=== PATIENT | female | born 1965 | race Two or more races ===

== ENCOUNTER 2019-12-21 13:13 | Outpatient (AMBR) | payer BC, SELFPAY ==
--- NOTE | 2019-12-21 13:29 | PT.OIERPT ---
PT OP Initial Eval Patient Information Visit Reasons: wrist pain Medical Diagnosis: M25.532 Treatment Dx #1: L wrist weakness Start of Care: 12/21/19 Date of Onset: August 07 Initial Assessment Subjective Pt is 54 yr old thai speaking female s/p fall with L wrist distal ulnar FX in July. Pt reports weakness and that she drops things like a cooking pain. She doesn't have pain at rest but sometimes if she hits the hand on something it hurts. , PMH: B knee OA, R shoulder OA, LBP with R LE radiation Imaging: X-ray of L wrist in EMR- Acute fracture distal shaft ulna, no significant displacement Acute fracture ulnar styloid tip, no significant displacement Distal radius intact as well as carpal bones Pt goal: to be able to lift things without pain to cook, stronger L wrist Objective Hot Knife Cutter strength: R 40 lbs, L 25 lbs L wrist TTP: moderate over ulnar styloid ArOM: Flexion: 50 deg Extension: 38 deg Rad dev: 5 deg Ulnar dev: full Pronation: full Supination: 75 deg Assessment Pt presentation consistent with L wrist distal ulnar FX's with decreased wrist ROM, strength and function with carrying objects. 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 Eval followed by HEP and given ball to squeeze. Pt requires skilled therapy to reduce pain and improve ROM and has good rehab potential. Short Term and [facility]ci Goals 1. Ind with HEP 2. Improved wrist extension to at least 50 deg 3. Improved chemical machine tender strength on L to at least 35 lbs 4. Pt will be able to lift cooking pans in order to cook not limited by pain Treatment Plan 1. Manual therapy 2. Therex 3. Modalities as indicated, moist heat, ice, estim Frequency and Duration 2x a week for 8 weeks Certification Dates: 12/21/19 to 03/21/20 Office Procedures PT Procedures PT Date of Service: 12/21/19 OP PT Eval Mod Complex 30 minutes: Yes
--- NOTE | 2019-12-27 17:20 | PTNOTE_ITS ---
PT Outpatient Daily Note Date of Service: 12/27/19 OP Daily Note Visit Reasons: wrist pain Outpatient Physical Therapy Treatment Date: 12/27/19 Subjective: Same as time of evaluation Objective: See F/S for therex MT: STM ulnar styloid and ulnar shaft region x10' Assessment: Pt was able to do over 30 reps of gripper without significant pain today. Moderate TTP over shaft of ulna with manual therapy today. Plan: Continue per POC Length of Time (minutes) of Treatment: 30 Minutes Office Procedures PT Procedures PT Date of Service: 12/21/19 OP PT Eval Mod Complex 30 minutes: Yes PT Procedures PT Date of Service: 12/27/19 Therapeutic Exercise 15 minutes: Yes Manual Ethylene Oxide Panelboard Operator 15 minutes: Yes
== END 2020-01-16 23:59 | disposition home or self-care (01) ==
PROVIDERS: PCP Orthopaedic Surgery; Referring Provider Orthopaedic Surgery; Visit Provider Orthopaedic Surgery
DX: M25.532 Pain in left wrist (principal); R53.1 Weakness
CPT/HCPCS: 97110; 97140; 97162

== ENCOUNTER 2024-01-31 15:37 | Inpatient (IN) | payer BC, SELFPAY ==
[2024-01-31] VITALS (8 sets, daily range): BP systolic 109–161; BP diastolic 66–91; PULSE 75–103; RESP 12–19; TEMP 36.8–38.8; O2SAT 95–99; BMI 26.5
--- NOTE | 2024-01-31 15:49 | XR_ITS ---
Examination: AP chest single view TECHNIQUE: Portable sitting AP chest single view Exam date and time: January 31, 2024 1559 hours Comparison July 11, 2018 INDICATIONS: Chest pain today FINDINGS: Normal heart size Lungs are clear Moderate osteopenia IMPRESSION: No pneumonia or pulmonary edema
--- NOTE | 2024-01-31 15:49 | EKG_ITS ---
[facility] Test Date: 2024-01-31 Pat Name: DAMIAN ROBERTS Department: Room: - Gender: Female Operational Intelligence Officer: : 1965 Requested By: Bill Carrasquillo Order Number: [id number] Reading MD: Bill Carrasquillo Measurements Intervals Mullen Rate: 83 P: 57 ME: 146 QRS: 27 QRSD: 97 T: 52 QT: 342 QTc: 404 Interpretive Statements SINUS RHYTHM Compared to ECG 01/21/2024 10:18:46 No significant changes /store/S0/[id number]/ecg/[id number].pdf
--- NOTE | 2024-01-31 15:49 | XR_ITS ---
Examination: CT brain head without contrast. 2-D sagittal coronal reconstructions Date and time of exam:January 31, 2024 1627 hours INDICATIONS: Severe headache the last 2 hours, CVA January 21, 2024, acute infarcts right cerebellar hemisphere right vermis on MRI brain January 21, 2024 CTDI: vol (mGy):42.7 DLP: (mGycm):842 Technique: Multiple CT axial sections of the brain have been obtained, 5 mm slice thickness. Contrast has not been administered. 2-D sagittal, coronal reconstructions have been obtained Low dose protocols were performed. One or more of the following dose reduction techniques were used; automated exposure control, adjustment of the mA and/or KV according to patient size, use of iterative reconstruction technique. Findings: No significant ventricular enlargement. Intra-axial or extra-axial hemorrhage density is not seen. No mass effect or midline shift Basal cisterns are not remarkable. Fourth ventricle is midline. Cranial vault intact. Impression: Negative for acute hemorrhage, mass effect or midline shift Consider repeat brain MRI follow-up, stroke protocol
--- NOTE | 2024-01-31 15:50 | PC.NURSE ---
DR. CARMONA IN TO SEE PT IN THE OLD TRIAGE ROOM AND SAYS NO NEED TO CALL STROKE ALERT.
[2024-01-31] MEDS: SODIUM CHLORIDE 0.9% 1000 ML 1,000 ML IV (16:01)
--- NOTE | 2024-01-31 16:09 | PD.EDADULT ---
ED General RME/HPI General Chief complaint: Neuro Symptoms/Deficit Stated complaint: FRYE x 10 DAYS, WORSE x 2 HR, STROKE 01/20, FEVER 102 Time Seen by Provider: 01/31/24 15:48 Arrival date/time: 01/31/24 15:37 RME / HPI RME / HPI narrative: DR. CARMONA MAIN ED EVALUATION: 58 year old female presents to the Emergency Department with complaints of increasing headache weakness generalized found to have a fever while in triage and was asked by our [place] nurse practitioner to come see this patient. She has no new focal deficit but did have a stroke in the recent past with some left hemiparesis. There is no cough nose no runny nose there is no sore throat there is no chest pain there is no abdominal pain. Family reports the headache and weak symptoms have been present for the past 2 weeks since his stroke but things are worse today. Related Data Home Medications ?Medication ?Instructions ?Recorded ?Confirmed duloxetine 60 mg capsule,delayed 30 mg PO QDAY 08/08/19 01/22/24 release (Cymbalta) fluticasone propionate 50 1 spray intranasal QDAY PRN 01/22/24 01/22/24 mcg/actuation nasal Allergic Symptoms spray,suspension (Flonase Allergy Relief) lisinopril 10 mg tablet 10 mg PO DAILY 01/22/24 01/22/24 Previous Rx's ?Medication ?Instructions ?Recorded acetaminophen 500 mg capsule 500 mg PO Q6H PRN pain #30 caps 01/24/24 aspirin 81 mg tablet,delayed 81 mg PO QDAY 21 days #21 tabs 01/24/24 release atorvastatin 80 mg tablet 80 mg PO HS 30 days #30 tabs 01/24/24 clopidogrel 75 mg tablet 75 mg PO QDAY 30 days #30 tabs 01/24/24 Allergies Allergy/AdvReac Type Severity Reaction Status Date / Time No Known Allergies Allergy Verified 01/31/24 15:46 Review of Systems Review of Systems Systems Reviewed: All systems reviewed, normal except as documented Narrative Review of Systems: GEN: No fever, no chills, no weight loss EYES: No discharge, no visual changes, no pain HEENT: No ear pain, no congestion, no sore throat PULM: No shortness of breath, no cough, no congestion CV: No chest pain, no dyspnea on exertion, no palpitations GI: No nausea, no vomiting, no diarrhea, no pain, no constipation : No frequency, no urgency and no dysuria MUSC/SKEL: No joint pain, no back pain SKIN: No rash PSYCH: No hallucinations, no depression HEME/LYMPH: No easy bleeding or bruising tendencies NEURO: + generalized weakness, + headache Past Medical History Past Medical History NEUROLOGIC: Positive Migraine MUSCULOSKELETAL: Positive Musculoskeletal Disorders and Arthritis PSYCHO/SOCIAL: Positive Anxiety Surgical History SURGICAL: Positive Hysterectomy Social History SMOKING STATUS: Light (< 1 pack/day) SUBSTANCE USE: does not use ALCOHOL: Never ED Exam Narrative Physical exam: Physical Exam: General: The vital signs were reviewed. Febrile in triage alert and awake answers questions no obvious focal deficit but does appear to have generalized weakness the patient is non-toxic, in no apparent distress and appears healthy with a patent airway, no respiratory distress and has no apparent circulatory problems. Head & Scalp: Normocephalic, atraumatic. Face: Appears normal and is without lesions, deformity. Ears: Left external pinna appears normal. Right external pinna appears normal. Eyes: The sclera is anicteric. No obvious photophobia. The Left and Right Orbit/Lid/Conjunctiva appears normal without swelling, discoloration or injection. Nose: The nose is without deformity, discharge or tenderness; Throat: Appears normal. The mucous membranes are pink and moist without exudates, redness or mass seen. The tongue appears normal. Neck: The neck is supple and no apparent mass or adenopathy. Chest: The chest wall is normal in size and symmetry and has no chest wall tenderness or crepitus. The patient displays normal ventilator effort without retractions, accessory muscle use and has adequate air movement bilaterally with no wheezes and no rales. Cardiovascular: Regular rate and rhythm; No murmurs, rubs, or gallops; Gastrointestinal: The abdomen appears normal. No obvious hernias or mass. The abdomen is soft and benign, non-distended, with no pain, no guarding and no rebound tenderness. Bowel sounds are present and normal sounding. No CVA tenderness. Genitourinary: Back/Spine: Nontender Extremities/Musculoskeletal/lymphatic: The bilateral upper and lower extremities are warm. There is no evidence of arterial insufficiency. There is no evidence of venous insufficiency/edema. The patient spontaneously moves bilateral upper and lower extremities with no pain and no limitation of movement. There is no apparent, injury or trauma. Skin: The skin is warm, dry and intact. No rashes. No petechia. No purpura. No abnormal bruising. The color is appropriate with no cyanosis. Mental status/Psychiatric: Mental status is appropriate for age. The patient has no apparent delusions, visual hallucinations, no apparent audible hallucinations. The patient has no apparent suicidal thoughts/ideation and no apparent homicidal thoughts/ideation. Neurological: The patient is awake, alert, interactive, cordial, cooperative and is oriented to name and situation. The patient follows commands and answers historical question with no impairment. There is no visual disturbance apparent. The pupils are equal and reactive bilaterally with normal eye movements and no diplopia The bilateral upper and lower extremities have normal strength, normal range of motion and normal functioning. The gait, station and balance were not tested due to acuity Course Quality Measures none Orders Category Date Time Status Bedside Blood Glucose NOW Care 01/31/24 15:49 Active Bedside COVID-19 Antigen Test NOW Care 01/31/24 16:08 Active Bedside Influenza A&B Antigen Test NOW Care 01/31/24 16:08 Completed EKG (ED ONLY) *Do not use* NOW Care 01/31/24 15:[address] head/brain wo con Stat Exams 01/31/24 15:49 Completed EKG (ED Only) Stat Exams 01/31/24 15:49 Draft XR chest 1V portable Stat Exams 01/31/24 15:49 Completed Alcohol, Blood Medical Stat Lab 01/31/24 15:57 Completed Ammonia Stat Lab 01/31/24 16:09 Completed B-Type Natriuretic Peptide Stat Lab 01/31/24 15:57 Completed Blood Culture (Lab) Stat Lab 01/31/24 16:09 Received CBC Stat Lab 01/31/24 15:57 Completed Comprehensive Metabolic Panel Stat Lab 01/31/24 15:57 Completed Drug Screen,Urine Stat Lab 01/31/24 17:25 Received Lactate (Lactic Acid) Stat Lab 01/31/24 15:57 Completed Procalcitonin Stat Lab 01/31/24 15:57 Completed Prothrombin Time with INR Stat Lab 01/31/24 15:57 Completed Strep A Rapid Stat Lab 01/31/24 16:08 Ordered Troponin I Stat Lab 01/31/24 15:57 Completed Type and Screen Stat Lab 01/31/24 16:09 Completed Urinalysis Stat Lab 01/31/24 17:25 Received Urinalysis, C/S if Indicated Stat Lab 01/31/24 17:25 Received Venous Blood Gas Stat Lab 01/31/24 15:57 Completed Sodium Chloride 0.9% 1000 ml [Ns] 1,000 ml Med 01/31/24 15:48 Discontinued IV 1,000 mls/hr Vital Signs Vital signs: Vital Signs Temperature 102 F H 01/31/24 15:50 Pulse Rate 103 H 01/31/24 15:50 Respiratory Rate 18 01/31/24 15:50 Blood Pressure 109/66 01/31/24 15:50 Pulse Oximetry (%) 95 01/31/24 15:50 Oxygen Delivery Method Room Air 01/31/24 15:50 [facility] Patient data External records reviewed:: [facility] previous records (Reviewed last neurology note by Dr. Santiago dated 01/26/24.) Clinical information provided by:: patient Social determinants that could affect healthcare access:: other (specify) (tobacco smoking) Patient has the following chronic illnesses:: Hypertension, hyperlipidemia, CVA, migraines. How is presenting disease/condition affected by chronic disease/condition?: exacerbated by Evaluation data The following diagnostics were reviewed and interpreted by me:: lab results, radiology exam(s) and EKG tracing(s) Lab and/or radiology exams considered but not ordered:: none Interpretation Summary: See above under [facility] narrative. RADIOLOGY: Procedure(s): XR chest 1V portable Accession Number(s): [id number] cc: Julian Mckoy MD; Bill Carmona MD; Chaka Hammond MD~ Examination: AP chest single view TECHNIQUE: Portable sitting AP chest single view Exam date and time: January 31, 2024 1559 hours Comparison July 11, 2018 INDICATIONS: Chest pain today FINDINGS: Normal heart size Lungs are clear Moderate osteopenia IMPRESSION: No pneumonia or pulmonary edema Dictated By: Chaka Hammond MD Procedure(s): CT head/brain wo con Accession Number(s): [id number] cc: Julian Mckoy MD; Bill Carmona MD; Chaka Hammond MD~ Examination: CT brain head without contrast. 2-D sagittal coronal reconstructions Date and time of exam:January 31, 2024 1627 hours INDICATIONS: Severe headache the last 2 hours, CVA January 21, 2024, acute infarcts right cerebellar hemisphere right vermis on MRI brain January 21, 2024 CTDI: vol (mGy):42.7 DLP: (mGycm):842 Technique: Multiple CT axial sections of the brain have been obtained, 5 mm slice thickness. Contrast has not been administered. 2-D sagittal, coronal reconstructions have been obtained Low dose protocols were performed. One or more of the following dose reduction techniques were used; automated exposure control, adjustment of the mA and/or KV according to patient size, use of iterative reconstruction technique. Findings: No significant ventricular enlargement. Intra-axial or extra-axial hemorrhage density is not seen. No mass effect or midline shift Basal cisterns are not remarkable. Fourth ventricle is midline. Cranial vault intact. Impression: Negative for acute hemorrhage, mass effect or midline shift Consider repeat brain MRI follow-up, stroke protocol Dictated By: Chaka Hammond MD Medications Medications considered but not ordered:: none Medication administrations:: Medication Administration History Discontinued Medications Sodium Chloride (Ns) 1,000 mls @ 1,000 mls/hr IV .Q1H ONE Stop: 01/31/24 16:47 Last Admin: 01/31/24 16:01 Dose: 1,000 mls/hr Documented By: MP see above Consultations Consultation(s) initiated? (list below): No Diagnosis Differential Diagnosis ED Complaint MDM: migraine, TIA, CVA, dehydration Most likely diagnosis given after review of the tests above:: Fever of unknown origin urine analysis still pending no other apparent source which is obvious clinically. COVID and influenza came back negative Admission Indicated Admission indicated?: not indicated (Pending final workup. Patient is feeling much better and wants to go home but the follow-up doctor will have to discern if patient safe to go home.) Explain why admission is indicated or not indicated:: No final disposition plan at this time, still pending diagnostic tests. Patient signout to the maintenance technician 3rd shift provider. Admission Request Was there a request for admission?: No Disposition Plan Disposition Plan: other (specify) (Patient signout to the maintenance technician 3rd shift provider.) Medical Decision Making MDM Narrative MDM Narrative: I was approached by the nurse practitioner concerning this patient went up to triage to see him as she presents with acute fever weakness with a recent stroke but no obvious new worsening focal deficit was present because of the fever and weakness we called a septic alert. Patient got fluids was put into room 5 eventually and the medical workup revealed the following white count came back at 11.5 hemoglobin 14.0 platelet count 421,000. PT 11.5. INR is 1.1 venous blood gas 744 pCO2 of 43 sodium 128 slightly low potassium 3.7 chloride 95 CO2 26 anion gap is 7 BUN 11 creatinine 0.8. Glucose 119 lactic acid came back at 1.0. Total bilirubin is 1 AST ALT are within normal limits. Ammonia is less than 10. Troponin was negative BNP was procalcitonin came back at 0.10 essentially negative. Alcohol level is negative. Patient is feeling better. As of 1742 hrs. the cath urine has not been collected. And the source of the fever is still undetermined. CT report of the head came back negative. Chest x-ray interpreted myself reveals no infiltrates no effusion normal heart size Twelve-lead EKG was done interpreted by myself as sinus rhythm rate [address] elevation OR. Normal EKG. When back in the room and patient feels much better states she feels like going home understands were still waiting for the urine result to come back. Evidently is patient's baseline status that she walks with a walker since the recent stroke but does not need any further assistance. Care of this patient will come to the oncoming doctor to dispo. Differential Diagnosis Differential Diagnosis: migraine, TIA, CVA, dehydration Lab Data 01/31/24 15:57 01/31/24 15:57 Labs: Lab Results 01/31/24 01/31/24 Range/Units 15:57 16:09 WBC 11.5 H (3.6-11.0) Thou/mm3 RBC 4.55 (4.00-5.20) Miln/mm3 Hgb 14.0 (12.0-16.0) g/dL Hct 42.6 (36.0-46.0) % MCV 94 (80-100) fL MCH 30.8 (25.0-35.0) pg MCHC 32.9 (31.0-37.0) g/dl RDW Std Deviation 43.0 (36.4-46.3) fL Plt Count 421 (140-440) Thou/mm3 Neut % (Auto) 74 (37-80) % Lymph % (Auto) 13 (10-50) % Leslie % (Auto) 9 (0-12) % Eos % (Auto) 4 (0-10) % Baso % (Auto) 1 (0-2.5) % Neut # (Auto) 8.5 H (1.8-7.7) Thou/mm3 Lymph # (Auto) 1.4 (1.0-4.8) Thou/mm3 Leslie # (Auto) 1.0 H (0.0-0.8) Thou/mm3 Eos # (Auto) 0.4 (0.0-0.5) Thou/mm3 Baso # (Auto) 0.1 (0.0-0.2) Thou/mm3 Immature Gran # (Auto) 0.04 H (0.00-0.00) Thou/mm3 Absolute Nucleated RBC 0.00 (0.00-0.00) Thou/mm3 Immature Gran % 0 (0-0) % Nucleated RBC % 0 (0) /100 WBC PT 11.5 (9.0-12.2) Seconds INR 1.1 (0.9-1.3) VBG pH 7.44 (7.33-7.66) VBG pCO2 43 (36-56) mmHg VBG pO2 29 (15-58) mmHg VBG O2 Sat (Saira) 56 L (96-97) % VBG Base Excess 4 H (-3-3) Sodium 128 L (136-145) mMol/L Potassium 3.7 (3.4-5.1) mMol/L Chloride 95 L (98-107) mMol/L Carbon Dioxide 26.0 (20.0-31.0) mMol/L Anion Gap 7 (7-16) BUN 11 (9-23) mg/dL Creatinine 0.8 (0.6-1.3) mg/dL Estim Creat Clear Calc 70.1 (>60) mL/min eGFR > 60 (60 - ) See Note BUN/Creatinine Ratio 14 (12-20) Ratio Glucose 119 H (74-106) mg/dL Calculated Osmolality 257 L (275-295) Lactic Acid 1.0 (0.4-2.0) mMol/L Calcium 9.8 (8.3-10.6) mg/dL Corrected Calcium 9.8 (8.5-10.1) mg/dL Total Bilirubin 1.0 (0.3-1.2) mg/dL AST < 8 (0-34) U/L ALT 17 (10-49) U/L Alkaline Phosphatase 111 (46-116) U/L Ammonia < 10 L (11-32) uMol/L Troponin I < 0.020 (0.0-0.045) ng/mL B-Natriuretic Peptide < 20 (0-100) pg/mL Total Protein 8.3 H (5.7-8.2) gm/dL Albumin 4.4 (3.5-5.0) gm/dL Globulin 3.9 H (2.3-3.5) gm/dL Albumin/Globulin Ratio 1.1 L (1.2-2.2) Procalcitonin 0.10 (0.0-0.49) ng/ml Ethyl Alcohol < 3.0 (0-10.0) mg/dL Blood Type O Positive Antibody Screen NEGATIVE Blood Bank Wristband ID Yes Discharge Plan Prescriptions/Referrals Prescriptions/Med Rec: No Action duloxetine [Cymbalta] 60 mg Capsule,Delayed Release(Dr/Ec) 30 mg PO QDAY lisinopril 10 mg tablet 10 mg PO DAILY fluticasone propionate [Flonase Allergy Relief] 50 mcg/actuation [place],Suspension 1 spray INTRANASAL QDAY PRN (Reason: Allergic Symptoms) Rx Instructions: administer into each nostril atorvastatin 80 mg tablet 80 mg PO HS 30 Days Qty: 30 0RF clopidogrel 75 mg Tablet 75 mg PO QDAY 30 Days Qty: 30 0RF acetaminophen 500 mg capsule 500 mg PO Q6H PRN (Reason: pain) Qty: 30 0RF aspirin 81 mg tablet,delayed release (DR/EC) 81 mg PO QDAY 21 Days Qty: 21 0RF Referrals: Julian Mckoy MD [Primary Care Provider] - In 1 week Problem List Clinical Impression: Generalized weakness, Fever, Recent cerebrovascular accident Patient/Caregiver Discharge Instructions Print Language: Greek
[2024-01-31 16:15] LABS: Base Excess, Venous 4 (-3-3); O2 Saturation, Venous 56 % (96-97); PCO2, Venous 43 mmHg (36-56); PO2, Venous 29 mmHg (15-58); pH, Venous 7.44 (7.33-7.66)
--- NOTE | 2024-01-31 16:17 | PC.NURSE ---
Pt. presents to ER accompanied by son bc son believes there has been a change to mental status. States she was slow to answer questions and out of it . Pt had a stroke which was dx 01/21/2024 and since has been living at her sons home using a walker to ambulate. Pt is A/O x 4, z[place]an speaking, ambulates with a walker, continent. Prior to stroke pt. was ambulatory without assistance and living at her home with her . Pt. states having migraines often but 2 days prior to stroke dx, pt had a different feeling headache.
[2024-01-31 16:20] LABS: Basophils # (Auto) 0.1 Thou/mm3 (0.0-0.2); Basophils % (Auto) 1 % (0-2.5); Eosinophils # (Auto) 0.4 Thou/mm3 (0.0-0.5); Eosinophils % (Auto) 4 % (0-10); Hematocrit 42.6 % (36.0-46.0); Immature Granulocytes % (Auto) 0 % (0-0); Immature Granulocytes Auto 0.04 Thou/mm3 (0.00-0.00); Lymphocytes # (Auto) 1.4 Thou/mm3 (1.0-4.8); Lymphocytes % (Auto) 13 % (10-50); Mean Corpuscular HGB Conc 32.9 g/dl (31.0-37.0); Mean Corpuscular Hemoglobin 30.8 pg (25.0-35.0); Mean Corpuscular Volume 94 fL (80-100); Monocytes % (Auto) 9 % (0-12); Neutrophils # (Auto) 8.5 Thou/mm3 (1.8-7.7); Neutrophils % (Auto) 74 % (37-80); Nucleated Red Blood Cell % 0 /100 WBC (0); Platelet Count 421 Thou/mm3 (140-440); Red Blood Count 4.55 Miln/mm3 (4.00-5.20); White Blood Count 11.5 Thou/mm3 (3.6-11.0)
[2024-01-31 16:35] LABS: INR 1.1 (0.9-1.3); Prothrombin Time 11.5 Seconds (9.0-12.2)
[2024-01-31 16:37] LABS: B-Type Natriuretic Peptide < 20 pg/mL (0-100)
[2024-01-31 16:38] LABS: Ammonia < 10 uMol/L (11-32)
[2024-01-31 16:50] LABS: Alanine Aminotransferase 17 U/L (10-49); Albumin, Serum 4.4 gm/dL (3.5-5.0); Albumin/Globulin Ratio 1.1 (1.2-2.2); Alcohol, Blood Medical < 3.0 mg/dL (0-10.0); Alkaline Phosphatase 111 U/L (46-116); Anion Gap 7 (7-16); Aspartate Amino Transferase < 8 U/L (0-34); BUN/Creatinine Ratio 14 Ratio (12-20); Blood Urea Nitrogen 11 mg/dL (9-23); Calcium 9.8 mg/dL (8.3-10.6); Calcium (Corrected) 9.8 mg/dL (8.5-10.1); Chloride 95 mMol/L (98-107); Creatinine (Component) 0.8 mg/dL (0.6-1.3); Estimated Creatinine Clearance 70.1 mL/min (>60); Globulin 3.9 gm/dL (2.3-3.5); Glucose 119 mg/dL (74-106); Osmolality,Calculated 257 (275-295); Potassium 3.7 mMol/L (3.4-5.1); Sodium 128 mMol/L (136-145); Total Protein 8.3 gm/dL (5.7-8.2); Troponin I < 0.020 ng/mL (0.0-0.045); eGFR > 60 See Note
[2024-01-31 17:38] LABS: Collection Type, Urine Clean Catch
[2024-01-31 17:51] LABS: Bacteria,Urine Rare; Bilirubin,Urine Negative (Negative); Blood,Urine Negative (Negative); Clarity,Urine Clear (Clear/Hazy); Color,Urine Colorless (Lt Yel-Yel); Culture Indicated,Urine Not Indicated; Glucose, Urine Negative (Negative); Ketones,Urine Negative (Negative); Leukocyte Esterase,Urine Positive (Negative); Nitrite,Urine Negative (Negative); Protein,Urine Negative (Neg - Trace); RBC,Urine < 1 /hpf (0-3); Specific Gravity,Urine 1.006 (1.001-1.035); Squamous Epithelial Cell,Urine 1 /hpf (0-5); Urobilinogen,Urine Negative mg/dL (0.0-1.0); WBC,Urine 2 /hpf (0-5)
[2024-01-31 17:52] LABS: Amphetamine/Methamp Scrn,U Negative (Negative); Barbiturate Screen,Urine Negative (Negative); Benzodiazepines Screen,Urine Negative (Negative); Benzoylecgonine Screen, Ur Negative (Negative); Fentanyl Screen,Urine Negative (Negative); Opiate Screen,Urine Negative (Negative); THC Screen,Urine Negative (Negative)
--- NOTE | 2024-01-31 18:18 | PD.EDADDENDU ---
Emergency Room Addendum <Shayna Garcia - Last Filed: 01/31/24 21:45> Addendum Narrative: Medical Decision Making MDM Narrative MDM Narrative: 1800: Care assumed from Bill Werner. Past medical, surgical, social and family history reviewed. Vitals and home medications reviewed. Results and treatment plan discussed. I will assume the care of the patient at this time and will follow the patient, pending final disposition. The following addendum documentation note is intended to reflect any pending information, findings, or radiology results not included in the patient?s initial chart by the previous provider. 2101: I have ordered a CT of the chest, abdomen and pelvis, looking for a source of infection. HPI Narrative: 58-year-old female with history of recent CVA discharged approximately one week ago who has had chronic headaches since the stroke, that is usually cleared with oral pain medicines, but comes to the emergency department because the pain medicines didn?t work. She denies fevers, chills, or sweats. She denies photophobia, nausea, vomiting, or diarrhea. She denies cough or sore throat. She does endorse mild right lower abdominal pain. Review of Systems Review of Systems Systems Reviewed: All systems reviewed, normal except as documented ED Exam Narrative Physical exam: GENERAL APPEARANCE: AxOx4, generally well-appearing, no acute distress. She appears to have extra pyramidal movements of her entire body mostly in the face with lip smacking movement pattern. HEENT: NC, AT. MMM. EOMI, clear conjunctiva, oropharynx clear. NECK: Supple without lymphadenopathy. No stiffness or restricted ROM. No stiffness, no meningismus. HEART: Normal rate and regular rhythm, normal S1/S1, no m/r/g LUNGS: CTAB, moving air well. No crackles or wheezes are heard. ABDOMEN: Soft, mild right lower quadrant tenderness without rebound, nondistended with good bowel sounds heard. BACK: No midline C/T/L spine pain or deformity, No CVAT, no obvious deformity. EXTREMITIES: Without cyanosis, clubbing or edema. MUSCULOSKELETAL: FROM of all major joints, no chest tenderness NEUROLOGICAL: Grossly nonfocal. Alert and oriented, moving all 4 extremities. CN not formally tested but appear grossly intact. Observed to ambulate with normal gait. Skin: Warm and dry without any rash. <Alexa Mckoy - Last Filed: 02/01/24 00:02> Addendum Narrative: Medical Decision Making MDM Narrative MDM Narrative: 1800: Care assumed from Bill Werner. Past medical, surgical, social and family history reviewed. Vitals and home medications reviewed. Results and treatment plan discussed. I will assume the care of the patient at this time and will follow the patient, pending final disposition. The following addendum documentation note is intended to reflect any pending information, findings, or radiology results not included in the patient?s initial chart by the previous provider. 2101: I have ordered a CT of the chest, abdomen and pelvis, looking for a source of infection. 4: Discussed case with [Dr. Santiago] from [neurology] regarding [consultation]. Discussed patients ED course, exam findings, labs, and radiology results. Does not recommend a LP at this time. Agrees to consult. 0002: Discussed case with [Dr. Hernandez, resident physician] from Hospitalist service regarding admission. Discussed patients ED course, exam findings, labs, and radiology results. The Hospitalist [agrees] to accept the patient for admission. HPI Narrative: 58-year-old female with history of recent CVA discharged approximately one week ago who has had chronic headaches since the stroke, that is usually cleared with oral pain medicines, but comes to the emergency department because the pain medicines didn?t work. She denies fevers, chills, or sweats. She denies photophobia, nausea, vomiting, or diarrhea. She denies cough or sore throat. She does endorse mild right lower abdominal pain. Review of Systems Review of Systems Systems Reviewed: All systems reviewed, normal except as documented ED Exam Narrative Physical exam: GENERAL APPEARANCE: AxOx4, generally well-appearing, no acute distress. She appears to have extra pyramidal movements of her entire body mostly in the face with lip smacking movement pattern. HEENT: NC, AT. MMM. EOMI, clear conjunctiva, oropharynx clear. NECK: Supple without lymphadenopathy. No stiffness or restricted ROM. No stiffness, no meningismus. HEART: Normal rate and regular rhythm, normal S1/S1, no m/r/g LUNGS: CTAB, moving air well. No crackles or wheezes are heard. ABDOMEN: Soft, mild right lower quadrant tenderness without rebound, nondistended with good bowel sounds heard. BACK: No midline C/T/L spine pain or deformity, No CVAT, no obvious deformity. EXTREMITIES: Without cyanosis, clubbing or edema. MUSCULOSKELETAL: FROM of all major joints, no chest tenderness NEUROLOGICAL: Grossly nonfocal. Alert and oriented, moving all 4 extremities. CN not formally tested but appear grossly intact. Observed to ambulate with normal gait. Skin: Warm and dry without any rash. RADIOLOGY RESULTS: I personally reviewed the radiology data and agree with the radiologist's interpretation as below: [facility] Report Signed Patient: DAMIAN ROBERTS Record#: [id number] Birthdate: 1965 Age/Sex: 58 / F [facility] Attending Dr: Ordering Physician: Jordan Gross MD Date of Service: 01/31/24 Procedure(s): CT chest abdomen pelvis w Accession Number(s): [id number] cc: Julian Mckoy MD; Jordan Gross MD; Chaka Hammond MD~ Examination: CT chest with intravenous contrast CT abdomen with intravenous contrast CT pelvis with intravenous contrast 2-D coronal and sagittal reconstructions Time of exam: January 31, 2024 2159 hrs. Indications: Fever unknown origin today CTDI: vol (mGy) : 13.33 DLP: (mGycm): 739 Technique: Multiple axial images of the chest, abdomen and pelvis with intravenous contrast, 3.0 mm slice thickness. Images obtained post intravenous injection Isovue 370 60 cc. 2-D sagittal and coronal reconstructions. Low dose protocols were performed. One or more of the following dose reduction techniques were used; automated exposure control, adjustment of the mA and/or KV according to patient size, use of iterative reconstruction technique. Findings: No thoracic aortic aneurysm dilatation No pulmonary artery emboli No paratracheal tracheobronchial or bronchopulmonary adenopathy 10 mm pulmonary nodule right lower lobe No pneumonia or pulmonary edema or pleural disease No focal liver or splenic lesions Mucosal thickening in the gastric antrum axial image 184 No gallstones No pancreatic or adrenal mass Reticular pattern in the peritoneum for instance axial image 212 on the right side Mildly dilated small bowel loops Mild diffuse wall thickening involving the colon Normal appendix No diverticulitis Distended urinary bladder Atrophic uterus Moderate osteopenia Impression: 10 mm pulmonary nodule right lower lobe, recommend 6 month follow-up CT chest without contrast. No pneumonia or pulmonary edema or pleural disease Gastritis pattern, underlying gastric tumor not excluded, consider endoscopy follow-up Reticular pattern in the peritoneum, this appearance can be seen with peritoneal carcinomatosis, peritonitis, clinical correlation advised Enteritis pattern Diffuse mild colitis pattern Dictated By: Chaka Hammond MD Signed By: <Electronically signed by Chaka Hammond MD in OV> 01/31/24 2303 Attestation <Shayna Garcia - Last Filed: 01/31/24 21:45> Attestation Scribe Attestation: I, Bernardo Garcia, am scribing for and in the presence of Dr. Gross. Provider Notation: Although this document has been carefully reviewed, there may still be some phonetic and other typographical errors. These errors are purely grammatical due to imperfections in the software program and should not be construed in any way to compromise the substance of the patient's medical care during this visit.
--- NOTE | 2024-01-31 20:45 | XR_ITS ---
Examination: CT chest with intravenous contrast CT abdomen with intravenous contrast CT pelvis with intravenous contrast 2-D coronal and sagittal reconstructions Time of exam: January 31, 2024 2159 hrs. Indications: Fever unknown origin today CTDI: vol (mGy) : 13.33 DLP: (mGycm): 739 Technique: Multiple axial images of the chest, abdomen and pelvis with intravenous contrast, 3.0 mm slice thickness. Images obtained post intravenous injection Isovue 370 60 cc. 2-D sagittal and coronal reconstructions. Low dose protocols were performed. One or more of the following dose reduction techniques were used; automated exposure control, adjustment of the mA and/or KV according to patient size, use of iterative reconstruction technique. Findings: No thoracic aortic aneurysm dilatation No pulmonary artery emboli No paratracheal tracheobronchial or bronchopulmonary adenopathy 10 mm pulmonary nodule right lower lobe No pneumonia or pulmonary edema or pleural disease No focal liver or splenic lesions Mucosal thickening in the gastric antrum axial image 184 No gallstones No pancreatic or adrenal mass Reticular pattern in the peritoneum for instance axial image 212 on the right side Mildly dilated small bowel loops Mild diffuse wall thickening involving the colon Normal appendix No diverticulitis Distended urinary bladder Atrophic uterus Moderate osteopenia Impression: 10 mm pulmonary nodule right lower lobe, recommend 6 month follow-up CT chest without contrast. No pneumonia or pulmonary edema or pleural disease Gastritis pattern, underlying gastric tumor not excluded, consider endoscopy follow-up Reticular pattern in the peritoneum, this appearance can be seen with peritoneal carcinomatosis, peritonitis, clinical correlation advised Enteritis pattern Diffuse mild colitis pattern
[2024-01-31] MEDS: BENZTROPINE 0.5 MG TABLET 2 MG PO (21:23)
--- NOTE | 2024-01-31 23:05 | PC.NURSE ---
assisted pt to bathroom and back to bed.
--- NOTE | 2024-01-31 23:23 | PC.NURSE ---
PT HAS A TEMP OF 101.1 PROVIDER NOTIFIED NO NEW ORDERS AT THIS TIME.
[2024-01-31] MEDS: ACETAMINOPHEN 500 MG TABLET 1000 MG PO (23:34)
[2024-02-01] VITALS (11 sets, daily range): BP systolic 121–159; BP diastolic 43–72; PULSE 59–89; RESP 15–98; TEMP 36.6–37.7; O2SAT 95–99; BMI 23.1; BMI 13.0
[2024-02-01] MEDS: cefTRIAXone/D5w 1gm IV premix 50 ML IV (00:03)
--- NOTE | 2024-02-01 00:43 | ESHP_ITS ---
Documentation for date of: 02/01/24 HPI History of Present Illness History of present illness: 58-year-old female patient with significant medical history for hypertension, frequent migraines, fibromyalgia, hyperlipidemia, anxiety and allergic rhinitis came to ED for worsening headaches, fever, nausea, vomiting and generalized weakness. Patient was recently admitted on 01/21/2024 for headache and blurred vision and was found to have acute infarct of right cerebral hemisphere and right superior vermis per MRI. Patient was discharged on 01/26/2024 with aspirin, Plavix and atorvastatin after being evaluated by neurologist Dr Santiago. Today patient is accompanied by son who states that since yesterday patient has been having more severe headache with associated symptom of 101F fever. Patient has also had decreased p.o. intake. No chest pain/pressure, shortness of breath, chills, abdominal pain, diarrhea, constipation or other associate symptoms. ED vitals were significant for pulse 1 3 and temperature 102F. Patient was given x 1 Cogentin as per physical exam she was seen to have EPS/tardive dyskinesia. Lab was significant for WBC 11.5, NA 128, glucose 119. Urinalysis was negative for UTI, head CT was negative for hemorrhage or midline shift, chest x-ray was negative for any active disease. Chest/abdomen/pelvis CT indicative of: 10 mm pulmonary nodule right lower lobe, recommend 6 month follow-up CT chest without contrast. Gastritis pattern, underlying gastric tumor not excluded, reticular pattern in the peritoneum, peritonitis, Enteritis pattern with diffuse mild colitis pattern. Patient will be admitted to [facility] observation for viral gastritis, dehydration requiring IV fluids and migraine management. Medical Hx: Migraine, fibromyalgia, CVA, HLD, HTN, anxiety, Vitamin D deficiency Medications: Lisinopril, aspirin, Plavix, atorvastatin, Tylenol as needed for pain Surgical Hx:Hysterectomy Family Hx: Father = prostate cancer, mother = stroke and DM2 Social Hx: Recent smoker from [id number] with half pack of cigarettes weekly, denies alcohol or other illicit drug usage Allergies: NKDA CODE STATUS: Full code Review of Systems Review of Systems Systems Reviewed: All systems reviewed, normal except as documented Exam Vital Signs Temp Pulse Resp BP Pulse Ox O2 Del Method 101.1 F H 75 18 161/72 H 96 Room Air 01/31/24 23:34 01/31/24 23:04 01/31/24 23:04 01/31/24 23:04 01/31/24 23:04 01/31/24 23:04 Narrative Exam Constitutional: well-developed, well-nourished, in no acute distress, lying in bed HEENT: NCAT, EOMI, reactive round pupils b/l, patent nares b/l, dry tongue and mucous membranes Lung: CTAB, no wheezing, no rhonchi Heart: Regular S1S2, no murmurs, gallops, or rubs Abdomen: Soft, non-distended, non-tender, bowel sounds present throughout Extremities: No cyanosis, clubbing, or edema, LE pulses present b/l Neurologic: No focal sensory or motor deficits noted, AOx3, appropriate affect Skin: Warm, dry, no lesions or rashes noted Results: Labs 01/31/24 15:57 01/31/24 15:57 Labs: Short CBC 01/31/24 Range/Units 15:57 WBC 11.5 H (3.6-11.0) Thou/mm3 Hgb 14.0 (12.0-16.0) g/dL Hct 42.6 (36.0-46.0) % Plt Count 421 (140-440) Thou/mm3 BMP 01/31/24 15:57 Sodium 128 L Potassium 3.7 Chloride 95 L Carbon Dioxide 26.0 BUN 11 Creatinine 0.8 Glucose 119 H Calcium 9.8 Cardiac Enzymes 01/31/24 Range/Units 15:57 Troponin I < 0.020 (0.0-0.045) ng/mL Liver Function 01/31/24 Range/Units 15:57 Total Bilirubin 1.0 (0.3-1.2) mg/dL AST < 8 (0-34) U/L ALT 17 (10-49) U/L Alkaline Phosphatase 111 (46-116) U/L Albumin 4.4 (3.5-5.0) gm/dL Urine 01/31/24 Range/Units 17:25 Urine Color Colorless A (Lt Yel-Yel) Urine Clarity Clear (Clear/Hazy) Urine pH 7.0 (5.0-7.0) Ur Specific [place] 1.006 (1.001-1.035) Urine Protein Negative (Neg - Trace) Urine Glucose (UA) Negative (Negative) ABG Interpretation ABG results: 01/31/24 15:57 VBG pH 7.44 VBG pCO2 43 VBG pO2 29 VBG Base Excess 4 H Quality Measures Quality Measures none Medications Home Medications and Allergies Home Medications ?Medication ?Instructions ?Recorded ?Confirmed ?Type duloxetine 60 mg capsule,delayed 30 mg PO QDAY 08/08/19 01/22/24 History release (Cymbalta) fluticasone propionate 50 1 spray intranasal QDAY PRN 01/22/24 01/22/24 History mcg/actuation nasal Allergic Symptoms spray,suspension (Flonase Allergy Relief) lisinopril 10 mg tablet 10 mg PO DAILY 01/22/24 01/22/24 History Allergies Allergy/AdvReac Type Severity Reaction Status Date / Time No Known Allergies Allergy Verified 01/31/24 15:46 Visit Medications Acetaminophen (Acetaminophen 325 Mg Tablet) 650 mg PO Q6H PRN PRN Reason: Fever >101.5 Stop: 03/02/24 00:31 Heparin Sodium (Porcine) (Heparin Sod Inj 5000 Unit/Ml Vial) 5,000 unit SC Q8HR [facility] Stop: 02/15/24 05:59 Sodium Chloride (Ns) 1,000 mls @ 75 mls/hr IV .[id number] ONE Stop: 02/01/24 13:54 Ondansetron HCl (Ondansetron Inj 2 Mg/Ml Inj 2 Ml) 4 mg IV Q6H PRN; Protocol PRN Reason: NAUSEA OR VOMITING Stop: 03/02/24 00:31 Pantoprazole Sodium (Pantoprazole 40 Mg Tablet) 40 mg PO QDAY [facility] Stop: 03/02/24 08:59 Discontinued Medications Acetaminophen (Acetaminophen 500 Mg Tablet) 1,000 mg PO X1 ONE Stop: 01/31/24 23:27 Last Admin: 01/31/24 23:34 Dose: 1,000 mg Benztropine Mesylate (Benztropine 0.5 Mg Tablet) 2 mg PO X1 ONE Stop: 01/31/24 20:47 Last Admin: 01/31/24 21:23 Dose: 2 mg Sodium Chloride (Ns) 1,000 mls @ 1,000 mls/hr IV .Q1H ONE Stop: 01/31/24 16:47 Last Infusion: 01/31/24 19:10 Dose: Infused Ceftriaxone Sodium/Dextrose (Rocephin/D5w 1gm Iv Premix) 50 mls @ 100 mls/hr IV X1 ONE Stop: 02/01/24 00:21 Last Admin: 02/01/24 00:03 Dose: 100 mls/hr Ketorolac Tromethamine (Ketorolac Inj 30 Mg/Ml Vial) 30 mg IVP X1 ONE Stop: 02/01/24 00:41 Assessment & Plan Plan 58-year-old female patient with significant medical history for hypertension, frequent migraines, fibromyalgia, hyperlipidemia, anxiety and allergic rhinitis came to ED for worsening headaches and generalized weakness. #SIRS most likely secondary to #Viral enteritis On admission patient complaining of generalized weakness, fever, N/V and decreased p.o. intake CT of chest abdomen pelvis indicative of mild colitis and diffuse enteritis Patient denies abdominal pain or diarrhea Plan: ? [facility] ? Maintenance IV fluids NS at 75 cc/h ? Acetaminophen for fevers > 100.3 ? Follow-up CBC #Worsening migraines, most likely secondary to viral enteritis #Fibromyalgia #Recent acute infarct of right cerebellar hemisphere and right superior vermis #Hyperlipidemia On admission patient complaining of worsening headaches Plan: ? Supportive treatment ? IV Toradol x 1 administered ? Diphenhydramine 12.5 mg as needed for migraines/headaches ? Restart home med duloxetine ? Restart home med aspirin, Plavix, atorvastatin ? Neurologist Dr Santiago consulted, recommendations greatly appreciated #Hypertension Plan: Restart home med lisinopril 20 mg daily Health Maintenance Dispo: Patient admitted to MedSurg observation for worsening migraines, viral enteritis requiring IV fluids, neurology consulted Diet: Regular diet DVT/PPx: Heparin GI ppx: Protonix Lines: PIV Code Status: Full code This patient care was discussed with my attending Dr. Elizabeth Aj MD PGY-2 Disclaimer: Minor errors in oil expeller may be present since this note was dictated by speech recognition software. Attending Provider Attestation/Addendum I reviewed labs, imaging, EKG, home medications and prior available records. Face to face evaluation was performed by me. I have personally examined the patient and discussed assessment and plan with the IM team. I reviewed the resident note and agree with the plan with exceptions as below. 58-year-old female with history of CVA, migraine headaches, who presented with a chief complaint of fevers, worsening headaches, and generalized weakness. She was found to have colitis on CT abdomen. Acute febrile illness: Likely viral etiology. Possible influenza. Unlikely bacterial infection. Blood cultures sent. Management of fevers with Tylenol as needed. Gentle IV hydration. Migraine headaches: Will empirically treat with IV Toradol. Will give IV diphenhydramine. Dr Santiago was contacted in the ED: Unlikely meningitis. Will hold off LP. Monitor clinically. Neurology will follow-up. History of CVA: Resume aspirin, Plavix, and atorvastatin. Hyponatremia: Mild. Started normal saline. Monitor BMP 10 mm right lower lobe pulmonary nodule: Will need outpatient monitoring. Patient/son is aware of this finding.
[2024-02-01] MEDS: KETOROLAC INJ 30 MG/ML VIAL IVP (00:53)
[2024-02-01] MEDS: SODIUM CHLORIDE 0.9% 1000 ML 1,000 ML 75 ML IV (00:53)
[2024-02-01 05:10] LABS: Basophils # (Auto) 0.1 Thou/mm3 (0.0-0.2); Basophils % (Auto) 1 % (0-2.5); Eosinophils # (Auto) 0.1 Thou/mm3 (0.0-0.5); Eosinophils % (Auto) 2 % (0-10); Hematocrit 37.8 % (36.0-46.0); Hemoglobin 12.4 g/dL (12.0-16.0); Immature Granulocytes % (Auto) 0 % (0-0); Immature Granulocytes Auto 0.03 Thou/mm3 (0.00-0.00); Lymphocytes # (Auto) 1.5 Thou/mm3 (1.0-4.8); Lymphocytes % (Auto) 16 % (10-50); Mean Corpuscular HGB Conc 32.8 g/dl (31.0-37.0); Mean Corpuscular Hemoglobin 30.8 pg (25.0-35.0); Mean Corpuscular Volume 94 fL (80-100); Monocytes # (Auto) 0.8 Thou/mm3 (0.0-0.8); Monocytes % (Auto) 8 % (0-12); Neutrophils # (Auto) 6.9 Thou/mm3 (1.8-7.7); Neutrophils % (Auto) 74 % (37-80); Nucleated Red Blood Cell % 0 /100 WBC (0); Platelet Count 360 Thou/mm3 (140-440); RDW Standard Deviation 42.8 fL (36.4-46.3); Red Blood Count 4.03 Miln/mm3 (4.00-5.20); White Blood Count 9.3 Thou/mm3 (3.6-11.0)
[2024-02-01 05:22] LABS: Strep A Rapid Negative (Negative)
[2024-02-01 05:25] LABS: Anion Gap 5 (7-16); BUN/Creatinine Ratio 13 Ratio (12-20); Blood Urea Nitrogen 8 mg/dL (9-23); Calcium 9.3 mg/dL (8.3-10.6); Carbon Dioxide 27.2 mMol/L (20.0-31.0); Chloride 100 mMol/L (98-107); Creatinine (Component) 0.6 mg/dL (0.6-1.3); Estimated Creatinine Clearance 93.5 mL/min (>60); Glucose 95 mg/dL (74-106); Magnesium 2.2 mg/dL (1.6-2.6); Osmolality,Calculated 262 (275-295); Phosphorous 3.9 mg/dL (2.4-5.1); Potassium 3.8 mMol/L (3.4-5.1); Sodium 132 mMol/L (136-145); eGFR > 60 See Note
[2024-02-01] MEDS: HEPARIN SOD INJ 5000 UNIT/ML VIAL SC ×3 (05:35→20:03)
[2024-02-01] MEDS: DULoxetine HCL 30 MG CAPSULE PO (08:56)
[2024-02-01] MEDS: PANTOPRAZOLE 40 MG TABLET PO (08:56)
[2024-02-01] MEDS: ASPIRIN EC 81 MG TABEC PO (08:57)
[2024-02-01] MEDS: CLOPIDOGREL BISULFATE 75 MG TABLET PO (08:57)
[2024-02-01] MEDS: Lisinopril 2.5 MG TABLET 10 MG PO (08:57)
--- NOTE | 2024-02-01 10:35 | CHAP ---
I prayed with patient in Georgian after identifying myself and receiving consent.
[2024-02-01] MEDS: ACETAMINOPHEN 325 MG TABLET 650 MG PO ×2 (12:36→19:54)
[2024-02-01] MEDS: CIPROFLOXACIN/D5w 400 MG IVPB 400 MG/200 ML BAG 200 MG IV ×2 (14:10→21:21)
[2024-02-01] MEDS: metroNIDAZOLE/NS 500 MG IVPB 500 MG/100 ML BAG 200 MG IV ×2 (14:58→22:39)
--- NOTE | 2024-02-01 15:01 | ESPR_ITS ---
Documentation for date of: 02/01/24 Subjective Subjective Interval history: No overnight events. Patient states she is feeling better, minimal nausea. Patient has not had fever/chills since admission. Patient denies abdominal pain. GI consulted. Cipro/Flagyl initiated for empiric treatment. Scheduled Reglan initiated for headaches. Exam Vital Signs Temp Pulse Resp BP Pulse Ox O2 Del Method 98.7 F 76 16 159/72 H 98 Room Air 02/01/24 12:00 02/01/24 12:19 02/01/24 12:19 02/01/24 12:00 02/01/24 12:00 02/01/24 12:00 Narrative Exam PE: Gen: Well-developed and well-nourished. HEENT: NCAT, PERRLA, EOMI, MMM, anicteric conjunctivae. CVS: normal S1 and S2. RRR. No M/R/G. Resp: CTA B/L. No rhonchi, rales, crackles or wheezing. Abd: soft, non-tender, non-distended. MSK: Good ROM in BUE & BLE. No edema or rash. Neuro: CN II-XII grossly intact. Strength 5/5 in BUE & BLE. Alert and oriented x3. Psych: appropriate mood and affect. Objective Labs 02/02/24 04:49 02/02/24 04:49 Labs: Laboratory Results - last 24 hr 01/31/24 01/31/24 01/31/24 15:57 16:09 17:25 WBC 11.5 H RBC 4.55 Hgb 14.0 Hct 42.6 MCV 94 MCH 30.8 MCHC 32.9 RDW Std Deviation 43.0 Plt Count 421 Neut % (Auto) 74 Lymph % (Auto) 13 [place] % (Auto) 9 Eos % (Auto) 4 Baso % (Auto) 1 Neut # (Auto) 8.5 H Lymph # (Auto) 1.4 [place] # (Auto) 1.0 H Eos # (Auto) 0.4 Baso # (Auto) 0.1 Immature Gran # (Auto) 0.04 H Absolute Nucleated RBC 0.00 Immature Gran % 0 Nucleated RBC % 0 PT 11.5 INR 1.1 VBG pH 7.44 VBG pCO2 43 VBG pO2 29 VBG O2 Sat (Saira) 56 L VBG Base Excess 4 H Sodium 128 L Potassium 3.7 Chloride 95 L Carbon Dioxide 26.0 Anion Gap 7 BUN 11 Creatinine 0.8 Estim Creat Clear Calc 70.1 eGFR > 60 BUN/Creatinine Ratio 14 Glucose 119 H Calculated Osmolality 257 L Lactic Acid 1.0 Calcium 9.8 Corrected Calcium 9.8 Phosphorus Magnesium Total Bilirubin 1.0 AST < 8 ALT 17 Alkaline Phosphatase 111 Ammonia < 10 L Troponin I < 0.020 B-Natriuretic Peptide < 20 Total Protein 8.3 H Albumin 4.4 Globulin 3.9 H Albumin/Globulin Ratio 1.1 L Procalcitonin 0.10 Ur Collection Type Clean Catch Urine Color Colorless A Urine Clarity Clear Urine pH 7.0 Ur Specific [place] 1.006 Urine Protein Negative Urine Glucose (UA) Negative Urine Ketones Negative Urine Blood Negative Urine Nitrite Negative Urine Bilirubin Negative Urine Urobilinogen (Auto) Negative Ur Leukocyte Esterase Positive Urine RBC < 1 Urine WBC 2 Ur Squamous Epith Cells 1 Urine Bacteria Rare Ur Culture Indicated? Not Indicated Urine Opiates Screen Negative Urine Fentanyl Screen Negative Ur Barbiturates Screen Negative U Amphetamin/Meth Scrn Negative U Benzodiazepines Scrn Negative U Cocaine Metab Screen Negative U Marijuana (THC) Screen Negative Ethyl Alcohol < 3.0 Group A Strep Rapid Blood Type O Positive Antibody Screen NEGATIVE Blood Bank Wristband ID Yes 02/01/24 02/01/24 04:20 04:32 WBC 9.3 RBC 4.03 Hgb 12.4 Hct 37.8 MCV 94 MCH 30.8 MCHC 32.8 RDW Std Deviation 42.8 Plt Count 360 D Neut % (Auto) 74 Lymph % (Auto) 16 [place] % (Auto) 8 Eos % (Auto) 2 Baso % (Auto) 1 Neut # (Auto) 6.9 Lymph # (Auto) 1.5 [place] # (Auto) 0.8 Eos # (Auto) 0.1 Baso # (Auto) 0.1 Immature Gran # (Auto) 0.03 H Absolute Nucleated RBC 0.00 Immature Gran % 0 Nucleated RBC % 0 PT INR VBG pH VBG pCO2 VBG pO2 VBG O2 Sat (Saira) VBG Base Excess Sodium 132 L Potassium 3.8 Chloride 100 Carbon Dioxide 27.2 Anion Gap 5 L BUN 8 L Creatinine 0.6 Estim Creat Clear Calc 93.5 eGFR > 60 BUN/Creatinine Ratio 13 Glucose 95 Calculated Osmolality 262 L Lactic Acid Calcium 9.3 Corrected Calcium Phosphorus 3.9 Magnesium 2.2 Total Bilirubin AST ALT Alkaline Phosphatase Ammonia Troponin I B-Natriuretic Peptide Total Protein Albumin Globulin Albumin/Globulin Ratio Procalcitonin Ur Collection Type Urine Color Urine Clarity Urine pH Ur Specific [place] Urine Protein Urine Glucose (UA) Urine Ketones Urine Blood Urine Nitrite Urine Bilirubin Urine Urobilinogen (Auto) Ur Leukocyte Esterase Urine RBC Urine WBC Ur Squamous Epith Cells Urine Bacteria Ur Culture Indicated? Urine Opiates Screen Urine Fentanyl Screen Ur Barbiturates Screen U Amphetamin/Meth Scrn U Benzodiazepines Scrn U Cocaine Metab Screen U Marijuana (THC) Screen Ethyl Alcohol Group A Strep Rapid Negative Blood Type Antibody Screen Blood Bank Wristband ID ABG Interpretation ABG results: 01/31/24 15:57 VBG pH 7.44 VBG pCO2 43 VBG pO2 29 VBG Base Excess 4 H Quality Measures Quality Measures none Assessment & Plan Assessment Current Active Medications: Generic Name Dose Route Start Last Admin Trade Name Freq PRN Reason Stop Dose Admin Acetaminophen 650 mg 02/01/24 00:32 Acetaminophen 325 Mg Tablet PO 03/02/24 00:31 Q6H PRN Fever >101.5 Acetaminophen 650 mg 02/01/24 13:17 Acetaminophen 325 Mg Tablet PO 03/02/24 13:16 Q4HR PRN PAIN Aspirin 81 mg 02/01/24 09:00 02/01/24 08:57 Aspirin Ec 81 Mg Tabec PO 03/02/24 08:59 81 mg QDAY ROGER Administration Aspirin 81 mg 02/02/24 09:00 Aspirin Ec 81 Mg Tabec PO 03/03/24 08:59 QDAY ROGER Atorvastatin Calcium 80 mg 02/01/24 21:00 Atorvastatin Calcium 20 Mg Tablet PO 03/02/24 20:59 HS ROGER Atorvastatin Calcium 80 mg 02/01/24 21:00 Atorvastatin Calcium 20 Mg Tablet PO 03/02/24 20:59 HS ROGER Clopidogrel Bisulfate 75 mg 02/01/24 09:00 02/01/24 08:57 Clopidogrel Bisulfate 75 Mg Tablet PO 03/02/24 08:59 75 mg QDAY ROGER Administration Clopidogrel Bisulfate 75 mg 02/02/24 09:00 Clopidogrel Bisulfate 75 Mg Tablet PO 03/03/24 08:59 QDAY ROGER Diphenhydramine HCl 12.5 mg 02/01/24 01:39 Diphenhydramine Elix 25 Mg/10 Ml Udc PO 03/02/24 01:44 Q6H PRN Migraine / Headache Duloxetine HCl 30 mg 02/01/24 09:00 02/01/24 08:56 Duloxetine Hcl 30 Mg Capsule PO 03/02/24 08:59 30 mg QDAY ROGER Administration Duloxetine HCl 30 mg 02/02/24 09:00 Duloxetine Hcl 30 Mg Capsule PO 03/03/24 08:59 QDAY ROGER Heparin Sodium (Porcine) 5,000 unit 02/01/24 06:00 02/01/24 05:35 Heparin Sod Inj 5000 Unit/Ml Vial SC 02/15/24 05:59 5,000 unit Q8HR ROGER Administration Ciprofloxacin/Dextrose 400 mg in 200 mls @ 200 mls/hr 02/01/24 13:29 02/01/24 14:10 Cipro Ivpb IV 02/08/24 13:28 200 mls/hr Q12HR ROGER Administration Metronidazole 500 mg in 100 mls @ 200 mls/hr 02/01/24 13:29 Flagyl 500 Mg Iv IV 02/08/24 13:28 Q8HR ROGER Lisinopril 10 mg 02/01/24 09:00 02/01/24 08:57 Lisinopril 2.5 Mg Tablet PO 03/02/24 08:59 10 mg QDAY ROGER Administration Metoclopramide HCl 10 mg 02/01/24 13:26 Metoclopramide Inj 5 Mg/Ml Vial 2 Ml IVP 03/02/24 13:59 Q8HR PRN headache Protocol Ondansetron HCl 4 mg 02/01/24 00:32 Ondansetron Inj 2 Mg/Ml Inj 2 Ml IV 03/02/24 00:31 Q6H PRN NAUSEA OR VOMITING Protocol Pantoprazole Sodium 40 mg 02/01/24 09:00 02/01/24 08:56 Pantoprazole 40 Mg Tablet PO 03/02/24 08:59 40 mg QDAY ROGER Administration Plan 58 y/o F with PMHx significant for hypertension, frequent migraines, fibromyalgia, hyperlipidemia, anxiety and allergic rhinitis came to ED for nausea and vomiting with associated fever/chills, admitted for gastroenteritis. #Gastroenteritis with sepsis, viral versus bacterial On admission patient complaining of generalized weakness, fever, N/V and decreased p.o. intake. Patient met 3/4 SIRS criteria: Leukocytosis 11.5, fever 102, tachycardia 103. CT of chest abdomen pelvis indicative of mild colitis and diffuse enteritis. CT also showed gastritis, unable to rule out underlying gastric tumor. Patient received 1 L bolus normal saline, Rocephin, Tylenol in the ED. Patient also received IVF normal saline 75 mL/h x 1 L. Empiric antibiotics Cipro and Flagyl initiated. GI consulted. -Cipro 400 mg IV every 12 hours (started 01/31) -Flagyl 500 mg IV every 8 hour (started 01/31) -GI consult placed, will follow-up -Urine culture and blood cultures pending -Tylenol 650 mg p.o. every 6 hours as needed for fever or pain #Worsening migraines, most likely secondary to viral enteritis On admission patient complaining of worsening headaches. Patient used to take Excedrin, was discontinued after recent CVA. Patient received 1 dose of IV Toradol. -Reglan 10 mg IV every 8 hours as needed for headaches -Diphenhydramine 12.5 mg as needed for migraines/headaches -Neurologist Dr Santiago consulted, recommendations greatly appreciated #Hypertension Patient has history of hypertension, on home lisinopril. Patient has had elevated BP during admission. -Resume home meds: Lisinopril 10 mg p.o. daily -Continue to monitor, will adjust if needed #Pulmonary nodule, incidental finding Patient had incidental finding of 10 mm pulmonary nodule on CT. Nodule does not appear on previous imaging. Patient and family were made aware. 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 -Resume home meds: Aspirin 81 mg p.o. daily, atorvastatin 80 mg p.o. at bedtime, Plavix 75 mg p.o. daily. -Resume home med: Duloxetine 30 mg p.o. daily DVT prophylaxis: Heparin GI prophylaxis: Protonix Diet: Regular Lines: Peripheral IV Code status: Full code Plan of care discussed with senior resident Dr. Garza PGY?[address] Gonzalez. Devyn Andrews MD PGY-1 --- I saw and examined the patient this morning, and I agree with management stated by the resident above. Thank you for allowing us to care for the patient during their stay at the hospital. Disclaimer: Despite multiple revisions, due to the dictation software being used, the document bellow may not be free of grammatical errors including phonetic/typographic errors. However, this does not deter from our commitment to providing health care in the patient's best interest in mind. Dr. Manuel Garza, PGY-3 Attending Provider Attestation/Addendum I, Dahiana Gonzalez, , attest that I was physically present for the bennett portions of the service and evaluated the patient with the resident and I reviewed and discussed the case with the resident and agree with the resident's findings and plans of care as documented above Patient seen and evaluated this AM. No acute events overnight. Son at bedside and states that patient has had very poor appetite since last admission. She appears to be easily nauseous and has had emesis after eating. Patient states she has been feeling well since she has been admitted. Patient states she has a bad migraine. Patient appears to have some spastic and choreiform movement. Will give IV reglan due to migraine. Patient reports having fevers at home. Will start on cipro and flagyl due to concerns of findings noted on CT abd/pelvis. Patient denies abdominal pain at this time. F/u with GI recommendations.
[2024-02-01] MEDS: ONDANSETRON INJ 2 MG/ML INJ 2 ML 4 MG IV (15:32)
[2024-02-01] MEDS: ATORVASTATIN CALCIUM 20 MG TABLET 80 MG PO (20:03)
--- NOTE | 2024-02-01 20:10 | PD.IMCONS ---
HPI Data of Consult Requesting Physician: Dahiana Gonzalez DO Primary Care Provider: Julian Mckoy MD Consult Narrative Reason for consult: Nausea vomiting fever abnormal CT scan A/P History of present illness: 58 years old female recently discharged from the hospital with acute right CVA with right superior fornix cerebral infarct who presented with headaches fever nausea vomiting and generalized weakness Patient had a CT scan of the chest abdomen pelvis done with contrast showed gastritis pattern in the antrum and the pyloric portion of the stomach as well as reticular pattern of the peritoneum suggestive of carcinomatosis peritonalis cc:: cc: Dahiana Gonzalez DO Review of Systems Review of Systems Systems Reviewed: All systems reviewed, normal except as documented Past Medical History Surgical History OTHER SURGICAL HX: History of present illness Meds Home Medications and Allergies Home Medications ?Medication ?Instructions ?Recorded ?Confirmed ?Type acetaminophen 500 mg tablet 500 mg PO Q8HR 02/01/24 02/01/24 History duloxetine 30 mg capsule,delayed 30 mg PO QDAY 02/01/24 02/01/24 History release meclizine 25 mg tablet 25 mg PO Q12H PRN Dizziness 02/01/24 02/01/24 History prochlorperazine maleate 5 mg 5 mg PO 4XD PRN Nausea And Vomiting 02/01/24 02/01/24 History tablet Allergies Allergy/AdvReac Type Severity Reaction Status Date / Time No Known Allergies Allergy Verified 01/31/24 15:46 Exam Vital Signs Temp Pulse Resp BP Pulse Ox O2 Del Method 98.7 F 59 L 18 121/62 96 Room Air 02/01/24 16:00 02/01/24 16:00 02/01/24 16:00 02/01/24 16:00 02/01/24 16:00 02/01/24 16:00 Constitutional Comments: Chronically ill-appearing Routine Respiratory Exam Comments: Normal to auscultation Routine Abdominal Exam Comments: Soft nontender Results Labs 02/01/24 04:20 02/01/24 04:32 Labs: Short CBC 02/01/24 Range/Units 04:20 WBC 9.3 (3.6-11.0) Thou/mm3 Hgb 12.4 (12.0-16.0) g/dL Hct 37.8 (36.0-46.0) % Plt Count 360 D (140-440) Thou/mm3 BMP 02/01/24 04:32 Sodium 132 L Potassium 3.8 Chloride 100 Carbon Dioxide 27.2 BUN 8 L Creatinine 0.6 Glucose 95 Calcium 9.3 ABG Interpretation ABG results: 01/31/24 15:57 VBG pH 7.44 VBG pCO2 43 VBG pO2 29 VBG Base Excess 4 H Assessment and Plan Additional Assessment & Plan Additional Plan: # Nausea vomiting with abnormal CT scan of the abdomen pelvis# showing mucosal thickening of the gastric antrum with possibility of carcinomatosis peritonalis Plan Fiberoptic esophagogastroduodenoscopy with possible biopsy possible therapeutic intervention under intravenous moderate sedation Informed consent obtained procedure tentatively scheduled for tomorrow CEA level CA 19?9 level AFP Ca1 2 5 level CA 15-3 # Diffuse colitis on CT scan imaging of uncertain etiology viral versus infectious versus inflammatory Other medical problems include # Recent right CVA with right superior vermis infarct # Headache secondary to above Thank you very much for the opportunity to participate in the care of this patient
--- NOTE | 2024-02-01 22:29 | ESCONSULT_ITS ---
History of Present Illness Data of Consult Requesting Physician: Dahiana Gonzalez DO Primary Care Provider: Julian Mckoy MD Consult Narrative History of present illness: Patient is a 58-year-old female with hypertension, frequent migraines, fibromyalgia, hyperlipidemia and anxiety with recent acute cerebellar infarction, underwent workup presented with worsening headaches, fever, nausea, vomiting and generalized weakness. Headache has been severe with associated fever spikes and low oral intake. Patient denies any new weakness or paresthesias or imbalance. Denies any chest pain shortness of breath or abdominal pain, diarrhea or constipation. Workup in the ER: vitals: pulse 1 3 and temperature 102F. Lab: WBC 11.5, NA 128, glucose 119. Urinalysis was negative for UTI, Imaging: head CT was negative for hemorrhage or midline shift, chest x-ray was negative for any active disease. Chest/abdomen/pelvis CT indicative of: 10 mm pulmonary nodule right lower lobe, recommend 6 month follow-up CT chest without contrast. Gastritis pattern, underlying gastric tumor not excluded, reticular pattern in the peritoneum suspicious for carcinomatous peritonitis, Enteritis pattern with diffuse mild colitis pattern. Patient got admitted to [facility] observation for viral gastritis, dehydration requiring IV fluids and migraine management. Neurology was consulted to evaluate for persistent headache and intermittent fever spikes. cc:: cc: Dahiana Gonzalez DO Review of Systems Review of Systems Systems Reviewed: All systems reviewed, normal except as documented Past Medical History Surgical History OTHER SURGICAL HX: History of present illness Meds Home Medications and Allergies Home Medications ?Medication ?Instructions ?Recorded ?Confirmed ?Type acetaminophen 500 mg tablet 500 mg PO Q8HR 02/01/24 02/01/24 History duloxetine 30 mg capsule,delayed 30 mg PO QDAY 02/01/24 02/01/24 History release meclizine 25 mg tablet 25 mg PO Q12H PRN Dizziness 02/01/24 02/01/24 History prochlorperazine maleate 5 mg 5 mg PO 4XD PRN Nausea And Vomiting 02/01/24 02/01/24 History tablet Allergies Allergy/AdvReac Type Severity Reaction Status Date / Time No Known Allergies Allergy Verified 01/31/24 15:46 Exam - Neurology Vital Signs Temp Pulse Resp BP Pulse Ox O2 Del Method 97.9 F 67 18 136/43 H 95 Room Air 02/01/24 20:00 02/01/24 20:00 02/01/24 20:00 02/01/24 20:00 02/01/24 20:00 02/01/24 20:00 Narrative Exam GENERAL APPEARANCE: Well hydrated, well-nourished in no acute distress. HEENT: Normocephalic, atraumatic, extraocular movements intact. Pupils: Equal reacting to light and accommodation NECK: Supple, no JVD or bruits. CARDIOVASULAR: Heart: S1, S2 heard, regular without S3-S4 or murmur no rubs or gallops. LUNGS/CHEST: Clear to auscultation bilaterally. No rails, rhonchi, or wheezing. Normal inspection. ABDOMEN: Soft, nontender, with normal bowel sounds. No pulsatile masses. No rebound, rigidity, or guarding. Normal inspection and palpation. EXTREMITIES: Normal inspection and palpation. No edema, clubbing or cyanosis. SKIN: Warm and dry without rashes. Normal inspection. MUSCULOSKELETAL: No cervical, thoracic, lumbar or midline bony tenderness. Normal inspection. NEURO: Alert, awake and oriented x3. Cranial nerves: II through XII grossly intact. Speech and language: Normal with no dysarthria or dysphasia. Motor system: Tone and bulk: Normal: Strength: 5 out of 5 in all 4 extremities; No pronator drift noted. Deep tendon reflexes: 2+ bilaterally symmetrical. Plantar reflex: Downgoing bilaterally. Sensory system: Intact to all modalities of sensation bilaterally. Coordination: Intact to [id number] and [id number] test bilaterally. No ataxia, no dysmetria, or dysdiadochokinesia noted. No intention tremors noted. Gait: Walks with a walker. No signs of meningeal irritation noted. PSYCHIATRIC: Normal mood and affect. Results Labs 02/01/24 04:20 02/01/24 04:32 Labs: Short CBC 02/01/24 Range/Units 04:20 WBC 9.3 (3.6-11.0) Thou/mm3 Hgb 12.4 (12.0-16.0) g/dL Hct 37.8 (36.0-46.0) % Plt Count 360 D (140-440) Thou/mm3 BMP 02/01/24 04:32 Sodium 132 L Potassium 3.8 Chloride 100 Carbon Dioxide 27.2 BUN 8 L Creatinine 0.6 Glucose 95 Calcium 9.3 ABG Interpretation ABG results: 01/31/24 15:57 VBG pH 7.44 VBG pCO2 43 VBG pO2 29 VBG Base Excess 4 H Assessment & Plan Assessment and plan (1) Recent cerebrovascular accident: Status: Chronic Assessment and plan: With gait ataxia, improving Continue with aspirin and Plavix and statin (2) Fever: Status: Acute Assessment and plan: Admitted with a temperature of 102, on antibiotics, follow-up with the culture. (3) Generalized weakness: Status: Acute Assessment and plan: Could be secondary to viral process, will check for influenza A and B (4) Chronic migraine: Status: Acute Assessment and plan: No requiring frequent Tylenol's to help with the fever, which could be causing rebound headache as well. Advised her to cut down on the frequency of NSAIDs and will consider getting approval for Botox to be performed as an outpatient. (5) Abnormal CT of the abdomen: Status: Acute Assessment and plan: GI has been consulted for further workup including endoscopy/colonoscopy.
[2024-02-02] VITALS (16 sets, daily range): BP systolic 121–159; BP diastolic 54–85; PULSE 59–92; RESP 12–96; TEMP 36.1–37.2; O2SAT 92–695
[2024-02-02 00:47] LABS: AFP Non-Pregnant < 0.00 ng/mL (<8.10); Carcinoembryonic Antigen < 0.5 ng/mL (0.0-5.0)
[2024-02-02 05:29] LABS: Basophils # (Auto) 0.1 Thou/mm3 (0.0-0.2); Basophils % (Auto) 1 % (0-2.5); Eosinophils # (Auto) 0.1 Thou/mm3 (0.0-0.5); Eosinophils % (Auto) 1 % (0-10); Hematocrit 38.4 % (36.0-46.0); Immature Granulocytes % (Auto) 0 % (0-0); Immature Granulocytes Auto 0.02 Thou/mm3 (0.00-0.00); Lymphocytes # (Auto) 1.4 Thou/mm3 (1.0-4.8); Lymphocytes % (Auto) 17 % (10-50); Mean Corpuscular HGB Conc 33.9 g/dl (31.0-37.0); Mean Corpuscular Hemoglobin 31.3 pg (25.0-35.0); Mean Corpuscular Volume 92 fL (80-100); Monocytes # (Auto) 0.7 Thou/mm3 (0.0-0.8); Monocytes % (Auto) 8 % (0-12); Neutrophils # (Auto) 6.3 Thou/mm3 (1.8-7.7); Neutrophils % (Auto) 74 % (37-80); Nucleated Red Blood Cell % 0 /100 WBC (0); Platelet Count 356 Thou/mm3 (140-440); RDW Standard Deviation 41.1 fL (36.4-46.3); Red Blood Count 4.16 Miln/mm3 (4.00-5.20); White Blood Count 8.5 Thou/mm3 (3.6-11.0)
[2024-02-02] MEDS: metroNIDAZOLE/NS 500 MG IVPB 500 MG/100 ML BAG 200 MG IV ×3 (05:35→21:15)
[2024-02-02 06:36] LABS: Anion Gap 3 (7-16); BUN/Creatinine Ratio 10 Ratio (12-20); Blood Urea Nitrogen 6 mg/dL (9-23); Calcium 9.9 mg/dL (8.3-10.6); Carbon Dioxide 28.7 mMol/L (20.0-31.0); Chloride 96 mMol/L (98-107); Creatinine (Component) 0.6 mg/dL (0.6-1.3); Estimated Creatinine Clearance 83.5 mL/min (>60); Glucose 100 mg/dL (74-106); Osmolality,Calculated 254 (275-295); Potassium 3.8 mMol/L (3.4-5.1); Sodium 128 mMol/L (136-145); eGFR > 60 See Note
[2024-02-02 07:20] LABS: Influenza A Ag Negative; Influenza B Ag Negative
[2024-02-02] MEDS: ACETAMINOPHEN 325 MG TABLET 650 MG PO (08:36)
[2024-02-02] MEDS: PANTOPRAZOLE 40 MG TABLET PO (08:37)
[2024-02-02] MEDS: Lisinopril 2.5 MG TABLET 10 MG PO (08:37)
[2024-02-02] MEDS: DULoxetine HCL 30 MG CAPSULE PO (08:37)
[2024-02-02] MEDS: CLOPIDOGREL BISULFATE 75 MG TABLET PO (08:37)
[2024-02-02] MEDS: ASPIRIN EC 81 MG TABEC PO (08:37)
--- NOTE | 2024-02-02 08:44 | PC.NURSE ---
Per Dr Pompa, ok to give patient morning medication with small sip of water.
[2024-02-02] MEDS: CIPROFLOXACIN/D5w 200 MG IVPB 200 MG/100 ML BAG 100 MG IV (08:58)
--- NOTE | 2024-02-02 10:20 | XR_ITS ---
Examination: Transvaginal ultrasound of the pelvis, complete Technique: Transvaginal sonographic images pelvis performed using oliva scale imaging Exam date and time: February 02, 2024 1522 hours INDICATIONS: Hysterectomy 18 years ago FINDINGS: Uterus not visualized Ovaries not visualized Mild free fluid in the cul-de-sac IMPRESSION: Mild free fluid in the cul-de-sac
--- NOTE | 2024-02-02 10:26 | PC.SS ---
Patient Neda Sauceda is 58-year-old,female who was admitted for Fever. SS met with patient and patient's at bedside to complete initial assessment. Patient reported that she resides at home with her son and . Patient does utilize a FWW to assist with ambulation at times. Patient's Surrogate decision maker is her daughter, Teresita Sales [phone]. Patient's PCP is Julian Mckoy. Choice of pharmacy is [facility]. At time of discharge patient's , Chan will provide transportation. Discharge Plan: home Next of Kin: daughter, Teresita Sales PCP: Julian Mckoy
[2024-02-02 10:53] LABS: Beta HCG,Quantitative 2 mIU/mL (<5.0)
--- NOTE | 2024-02-02 11:28 | PD.ONCCONS ---
HPI Data of Consult Consult date: 02/02/24 Requesting Physician: Dahiana Gonzalez DO Primary Care Provider: Julian Mckoy MD Consult Narrative Reason for consult: Possible malignancy involving abdomen History of present illness: Patient is a 58-year-old Maldivian-speaking lady admitted with headaches nausea vomiting and generalized weakness. Has had chronic headaches migraines fibromyalgia which has been getting worse. Head CT on 01/31/2024 was negative for acute changes, however MRI 01/21/2024 revealed acute infarct right cerebellar hemisphere and right superior vermis. CT chest abdomen pelvis 01/31/2024 revealed a 10 mm pulmonary nodule right lower lobe and reticular pattern in the peritoneum suggestive of possible peritoneal carcinomatosis. There was also gastritis pattern along with mild diffuse wall thickening involving the colon. With Dr. Pompa planning to do endoscopy soon. Labs revealed elevated CA125 of 157 with CA 15-3 not elevated with CA 19?9 pending. Patient now referred for oncological consultation. cc:: cc: aDhiana Gonzalez DO Past Medical History Family History OTHER FAMILY HX: Father had prostate cancer mother CVA and diabetes Social History SOCIAL: Patient Maldivian-speaking has had smoking history half a pack a day for some years. Denies alcohol Past Medical History Comments PMH COMMENT: Recent CVA; hypertension Long history of migraines prior hysterectomy Meds Home Medications and Allergies Home Medications ?Medication ?Instructions ?Recorded ?Confirmed ?Type acetaminophen 500 mg tablet 500 mg PO Q8HR 02/01/24 02/01/24 History duloxetine 30 mg capsule,delayed 30 mg PO QDAY 02/01/24 02/01/24 History release meclizine 25 mg tablet 25 mg PO Q12H PRN Dizziness 02/01/24 02/01/24 History prochlorperazine maleate 5 mg 5 mg PO 4XD PRN Nausea And Vomiting 02/01/24 02/01/24 History tablet Allergies Allergy/AdvReac Type Severity Reaction Status Date / Time No Known Allergies Allergy Verified 01/31/24 15:46 Exam Vital Signs Temp Pulse Resp BP Pulse Ox O2 Del Method 98.3 F 92 18 134/85 H 95 Room Air 02/02/24 07:45 02/02/24 08:37 02/02/24 07:45 02/02/24 08:37 02/02/24 07:45 02/02/24 07:45 Narrative Exam Lying comfortably answering questions via superannuation clerk appropriately Results Labs 02/02/24 04:49 02/02/24 04:49 Labs: Short CBC 02/02/24 Range/Units 04:49 WBC 8.5 (3.6-11.0) Thou/mm3 Hgb 13.0 (12.0-16.0) g/dL Hct 38.4 (36.0-46.0) % Plt Count 356 (140-440) Thou/mm3 BMP 02/02/24 04:49 Sodium 128 L Potassium 3.8 Chloride 96 L Carbon Dioxide 28.7 BUN 6 L Creatinine 0.6 Glucose 100 Calcium 9.9 ABG Interpretation ABG results: 01/31/24 15:57 VBG pH 7.44 VBG pCO2 43 VBG pO2 29 VBG Base Excess 4 H Assessment and Plan Additional Assessment & Plan Additional Plan: 1. Recent CVA clinically improving 2. Abnormal CT abdomen pelvis showing gastritis pattern and malignant pattern of peritoneum with GI symptoms. 3. Fiberoptic esophagogastroduodenoscopy being scheduled by Dr. Pompa. 4. Elevated CA 125 CA 19?9 pending. 5. Will follow. Thank for allowing me to evaluate this patient
--- NOTE | 2024-02-02 13:36 | XR_ITS ---
Examination: CT brain head without contrast. 2-D sagittal coronal reconstructions Date and time of exam:February 02, 2024 1443 hours Comparison January 31, 2024 INDICATIONS: Generalized head pain onset today CTDI: vol (mGy):42.4 DLP: (mGycm):861 Technique: Multiple CT axial sections of the brain have been obtained, 5 mm slice thickness. Contrast has not been administered. 2-D sagittal, coronal reconstructions have been obtained Low dose protocols were performed. One or more of the following dose reduction techniques were used; automated exposure control, adjustment of the mA and/or KV according to patient size, use of iterative reconstruction technique. Findings: No significant ventricular enlargement. Intra-axial or extra-axial hemorrhage density is not seen. No mass effect or midline shift Basal cisterns are not remarkable. Fourth ventricle is midline. Cranial vault intact. Impression: No interval acute hemorrhage, mass effect or midline shift
--- NOTE | 2024-02-02 15:02 | CHAP ---
09:30 AM Visited by spiritual care volunteer Provided prayer for Patient.
--- NOTE | 2024-02-02 15:18 | ESPR_ITS ---
Documentation for date of: 02/02/24 Subjective Subjective Interval history: No overnight events. Patient states she is feeling better, minimal nausea. Patient has not had fever/chills since admission. Patient denies abdominal pain. Patient endorses continued severe headaches. Oncology consulted due to positive CA125. EGD scheduled. Exam Vital Signs Temp Pulse Resp BP Pulse Ox O2 Del Method 97.7 F 70 17 139/64 H 94 L Room Air 02/02/24 11:49 02/02/24 11:49 02/02/24 11:49 02/02/24 11:49 02/02/24 11:49 02/02/24 11:49 Narrative Exam PE: Gen: Well-developed and well-nourished. HEENT: NCAT, PERRLA, EOMI, MMM, anicteric conjunctivae. CVS: normal S1 and S2. RRR. No M/R/G. Resp: CTA B/L. No rhonchi, rales, crackles or wheezing. Abd: soft, non-tender, non-distended. MSK: Good ROM in BUE & BLE. No edema or rash. Neuro: CN II-XII grossly intact. Strength 5/5 in BUE & BLE. Alert and oriented x3. Choreiform movements. Psych: appropriate mood and affect. Objective Labs 02/03/24 05:05 02/03/24 05:05 Labs: Laboratory Results - last 24 hr 02/01/24 02/02/24 02/02/24 04:20 04:49 05:40 WBC 8.5 RBC 4.16 Hgb 13.0 Hct 38.4 MCV 92 MCH 31.3 MCHC 33.9 RDW Std Deviation 41.1 Plt Count 356 Neut % (Auto) 74 Lymph % (Auto) 17 [place] % (Auto) 8 Eos % (Auto) 1 Baso % (Auto) 1 Neut # (Auto) 6.3 Lymph # (Auto) 1.4 [place] # (Auto) 0.7 Eos # (Auto) 0.1 Baso # (Auto) 0.1 Immature Gran # (Auto) 0.02 H Absolute Nucleated RBC 0.00 Immature Gran % 0 Nucleated RBC % 0 Sodium 128 L Potassium 3.8 Chloride 96 L Carbon Dioxide 28.7 Anion Gap 3 L BUN 6 L Creatinine 0.6 Estim Creat Clear Calc 83.5 eGFR > 60 BUN/Creatinine Ratio 10 L Glucose 100 Calculated Osmolality 254 L Calcium 9.9 Tumor Marker AFP < 0.00 L Carcinoembryonic Ag < 0.5 CA 15-3 Antigen 8.0 CA 125 Antigen 157.0 H HCG, Qual Cancelled Beta HCG, Quant 2 Influenza A (Rapid) Negative Influenza B (Rapid) Negative ABG Interpretation ABG results: 01/31/24 15:57 VBG pH 7.44 VBG pCO2 43 VBG pO2 29 VBG Base Excess 4 H Quality Measures Quality Measures none Assessment & Plan Assessment Current Active Medications: Generic Name Dose Route Start Last Admin Trade Name Freq PRN Reason Stop Dose Admin Acetaminophen 650 mg 02/01/24 00:32 Acetaminophen 325 Mg Tablet PO 03/02/24 00:31 Q6H PRN Fever >101.5 Acetaminophen 650 mg 02/01/24 13:17 02/02/24 08:36 Acetaminophen 325 Mg Tablet PO 03/02/24 13:16 650 mg Q4HR PRN Administration PAIN Aspirin 81 mg 02/02/24 09:00 02/02/24 08:37 Aspirin Ec 81 Mg Tabec PO 03/03/24 08:59 81 mg QDAY ROGER Administration Atorvastatin Calcium 80 mg 02/01/24 21:00 02/01/24 20:03 Atorvastatin Calcium 20 Mg Tablet PO 03/02/24 20:59 80 mg HS ROGER Administration Clopidogrel Bisulfate 75 mg 02/02/24 09:00 02/02/24 08:37 Clopidogrel Bisulfate 75 Mg Tablet PO 03/03/24 08:59 75 mg QDAY ROGER Administration Diphenhydramine HCl 12.5 mg 02/01/24 01:39 Diphenhydramine Elix 25 Mg/10 Ml Udc PO 03/02/24 01:44 Q6H PRN Migraine / Headache Protocol Duloxetine HCl 30 mg 02/02/24 09:00 02/02/24 08:37 Duloxetine Hcl 30 Mg Capsule PO 03/03/24 08:59 30 mg QDAY ROGER Administration Heparin Sodium (Porcine) 5,000 unit 02/01/24 21:00 02/02/24 08:42 Heparin Sod Inj 5000 Unit/Ml Vial SC 02/15/24 20:59 Not Given Q12HR ROGER Metronidazole 500 mg in 100 mls @ 200 mls/hr 02/01/24 13:29 02/02/24 13:19 Flagyl 500 Mg Iv IV 02/08/24 13:28 200 mls/hr Q8HR ROGER Administration Levofloxacin/Dextrose 750 mg in 150 mls @ 100 mls/hr 02/03/24 09:00 Levaquin Ivpb IV 02/10/24 08:59 QDAY ROGER Lisinopril 10 mg 02/01/24 09:00 02/02/24 08:37 Lisinopril 2.5 Mg Tablet PO 03/02/24 08:59 10 mg QDAY ROGER Administration Metoclopramide HCl 10 mg 02/01/24 13:26 Metoclopramide Inj 5 Mg/Ml Vial 2 Ml IVP 03/02/24 13:59 Q8HR PRN headache Protocol Ondansetron HCl 4 mg 02/01/24 00:32 02/01/24 15:32 Ondansetron Inj 2 Mg/Ml Inj 2 Ml IV 03/02/24 00:31 4 mg Q6H PRN Administration NAUSEA OR VOMITING Protocol Pantoprazole Sodium 40 mg 02/01/24 09:00 02/02/24 08:37 Pantoprazole 40 Mg Tablet PO 03/02/24 08:59 40 mg QDAY ROGER Administration Plan 58 y/o F with PMHx significant for hypertension, frequent migraines, fibromyalgia, hyperlipidemia, anxiety and allergic rhinitis came to ED for nausea and vomiting with associated fever/chills, admitted for gastroenteritis. #Gastroenteritis with sepsis, viral versus bacterial On admission patient complaining of generalized weakness, fever, N/V and decreased p.o. intake. Patient met 3/4 SIRS criteria: Leukocytosis 11.5, fever 102, tachycardia 103. CT of chest abdomen pelvis indicative of mild colitis and diffuse enteritis. CT also showed gastritis, unable to rule out underlying gastric tumor. Patient received 1 L bolus normal saline, Rocephin, Tylenol in the ED. Patient also received IVF normal saline 75 mL/h x 1 L. Empiric antibiotics Cipro and Flagyl initiated. GI consulted. -Cipro 400 mg IV every 12 hours (started 01/31) -Flagyl 500 mg IV every 8 hour (started 01/31) -GI consult appreciated -Follow-up EGD tomorrow -Urine culture and blood cultures pending -Tylenol 650 mg p.o. every 6 hours as needed for fever or pain #Cancer workup CT of abdomen showed gastritis, unable to rule out underlying gastric tumor. Tumor markers were drawn, CA125 was positive. aFP, CEA ED, CA 15-3 negative. CA 19?9 pending. Oncology consulted. Patient reports history of salpingo- oophorectomy. Transvaginal ultrasound scheduled. -Follow-up CA 19?9 -Follow-up EGD tomorrow. -Follow-up TVUS -Oncology consult appreciated #Worsening migraines, most likely secondary to viral enteritis On admission patient complaining of worsening headaches. Patient used to take Excedrin, was discontinued after recent CVA. Patient received 1 dose of IV Toradol. -Reglan 10 mg IV every 8 hours as needed for headaches -Diphenhydramine 12.5 mg as needed for migraines/headaches -Neurologist Dr Santaigo consulted, recommendations greatly appreciated #Hypertension Patient has history of hypertension, on home lisinopril. Patient has had elevated BP during admission. -Resume home meds: Lisinopril 10 mg p.o. daily -Continue to monitor, will adjust if needed #Pulmonary nodule, incidental finding Patient had incidental finding of 10 mm pulmonary nodule on CT. Nodule does not appear on previous imaging. Patient and family were made aware. 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 -Resume home meds: Aspirin 81 mg p.o. daily, atorvastatin 80 mg p.o. at bedtime, Plavix 75 mg p.o. daily. -Resume home med: Duloxetine 30 mg p.o. daily DVT prophylaxis: Heparin GI prophylaxis: Protonix Diet: Regular, n.p.o. after midnight Lines: Peripheral IV Code status: Full code Plan of care discussed with senior resident Dr. Garza PGY?[address] Gonzalez. Devyn Andrews MD PGY-1 --- ATTESTATION: I saw and examined the patient this morning, and I agree with current management stated by the resident. Will continue to monitor patient during their stay. Disclaimer: Despite multiple revisions, due to the dictation software being used, the document bellow may not be free of grammatical errors including phonetic/typographic errors. However, this does not deter from our commitment to providing health care in the patient's best interest in mind. Dr. Manuel Garza, PGY-3 Attending Provider Attestation/Addendum I, Dahiana Gonzalez DO, attest that I was physically present for the bennett portions of the service and evaluated the patient with the resident and I reviewed and discussed the case with the resident and agree with the resident's findings and plans of care as documented above Patient seen and evaluated this AM. No acute events overnight. She currently complains of headache. She denies any further N/V. Patient denies history of endoscopy, but had a colonoscopy within the last 7-8 years during which she reports was found to have a polyp. Patient denies any family or personal history of GI malignancies. She denies any weight loss. Pending EGD today. Patient states that she had a hysterectomy about 15 years ago. However, CT abdomen had findings of questionable finding of atrophic uterus. CA125 is noted to be elevated. Will order TVUS to rule out any masses. Given nonspecific findings on CT and elevated CA125, will consult oncology. Will f/u with endoscopy results, as well as neuro recommendations. CT head was repeated due to persistent headaches. However, patient has no new focal neurological deficits.
--- NOTE | 2024-02-02 19:23 | SUR.PHASEI ---
Pt. arrived to recovery via gurney, eyes closed, pt. resting, responds to verbal commands, VSS, no c/o pain or nausea at this time, pt. allowed to sleep. Report received from Della MERA.
--- NOTE | 2024-02-02 19:45 | SUR.PHASEI ---
Called and gave report on pt. s/p procedure to Shahla MERA on M/S unit. Pt. is resting, no c/o pain or nausea at this time.
--- NOTE | 2024-02-02 19:50 | SUR.PHASEI ---
Pt. transferred to room 352 via MARTÍN neff, no c/o pain or nausea at this time, IV flushed and Shahla garcia RN assumed care of pt.
[2024-02-02] MEDS: ATORVASTATIN CALCIUM 20 MG TABLET 80 MG PO (21:12)
[2024-02-02] MEDS: NA SU/NAHCO3/KC/PEG (Golytely) 4,000 ML BTL 4000 ML PO (22:01)
[2024-02-02] MEDS: HEPARIN SOD INJ 5000 UNIT/ML VIAL SC (22:07)
--- NOTE | 2024-02-02 23:51 | ESPR_ITS ---
Documentation for date of: 02/02/24 Subjective Subjective Interval history: Patient was seen in [facility] today with her daughter at the bedside. Continues to complain of headache, and is on Tylenol and metoclopramide every 4 hours. Exam - Neurology Vital Signs Temp Pulse Resp BP Pulse Ox O2 Del Method O2 Flow Rate 97.5 F 89 21 H 151/84 H 99 Room Air 3 02/02/24 20:00 02/02/24 20:20 02/02/24 20:20 02/02/24 20:00 02/02/24 20:20 02/02/24 20:00 02/02/24 20:20 Narrative Exam GENERAL APPEARANCE: Well hydrated, well-nourished in no acute distress. HEENT: Normocephalic, atraumatic, extraocular movements intact. Pupils: Equal reacting to light and accommodation NECK: Supple, no JVD or bruits. CARDIOVASULAR: Heart: S1, S2 heard, regular without S3-S4 or murmur no rubs or gallops. LUNGS/CHEST: Clear to auscultation bilaterally. No rails, rhonchi, or wheezing. Normal inspection. ABDOMEN: Soft, nontender, with normal bowel sounds. No pulsatile masses. No rebound, rigidity, or guarding. Normal inspection and palpation. EXTREMITIES: Normal inspection and palpation. No edema, clubbing or cyanosis. SKIN: Warm and dry without rashes. Normal inspection. MUSCULOSKELETAL: No cervical, thoracic, lumbar or midline bony tenderness. Normal inspection. NEURO: Alert, awake and oriented x3. Cranial nerves: II through XII grossly intact. Speech and language: Normal with no dysarthria or dysphasia. Motor system: Tone and bulk: Normal: Strength: 5 out of 5 in all 4 extremities; No pronator drift noted. Deep tendon reflexes: 2+ bilaterally symmetrical. Plantar reflex: Downgoing bilaterally. Sensory system: Intact to all modalities of sensation bilaterally. Coordination: Intact to [id number] and [id number]-[id number] test bilaterally. No ataxia, no dysmetria, or dysdiadochokinesia noted. No intention tremors noted. Gait: Walks with a walker. No signs of meningeal irritation noted. PSYCHIATRIC: Normal mood and affect. Objective Labs 02/03/24 05:05 02/03/24 05:05 Labs: Laboratory Results - last 24 hr 02/01/24 02/02/24 02/02/24 04:20 04:49 05:40 WBC 8.5 RBC 4.16 Hgb 13.0 Hct 38.4 MCV 92 MCH 31.3 MCHC 33.9 RDW Std Deviation 41.1 Plt Count 356 Neut % (Auto) 74 Lymph % (Auto) 17 [place] % (Auto) 8 Eos % (Auto) 1 Baso % (Auto) 1 Neut # (Auto) 6.3 Lymph # (Auto) 1.4 [place] # (Auto) 0.7 Eos # (Auto) 0.1 Baso # (Auto) 0.1 Immature Gran # (Auto) 0.02 H Absolute Nucleated RBC 0.00 Immature Gran % 0 Nucleated RBC % 0 Sodium 128 L Potassium 3.8 Chloride 96 L Carbon Dioxide 28.7 Anion Gap 3 L BUN 6 L Creatinine 0.6 Estim Creat Clear Calc 83.5 eGFR > 60 BUN/Creatinine Ratio 10 L Glucose 100 Calculated Osmolality 254 L Calcium 9.9 Tumor Marker AFP < 0.00 L Carcinoembryonic Ag < 0.5 CA 15-3 Antigen 8.0 CA 125 Antigen 157.0 H HCG, Qual Cancelled Beta HCG, Quant 2 Influenza A (Rapid) Negative Influenza B (Rapid) Negative ABG Interpretation ABG results: 01/31/24 15:57 VBG pH 7.44 VBG pCO2 43 VBG pO2 29 VBG Base Excess 4 H Assessment & Plan Assessment and plan (1) Recent cerebrovascular accident: Status: Chronic Assessment and plan: With gait ataxia, improving Continue with aspirin and Plavix and statin (2) Fever: Status: Acute Assessment and plan: Secondary to colitis most likely, trending down with a temp of 100.2 Continue with antibiotics (3) Generalized weakness: Status: Acute Assessment and plan: Could be secondary to viral process, will check for influenza A and B (4) Chronic migraine: Status: Acute Assessment and plan: Now on Tylenol frequently every 4 hours which could be causing rebound headache as well. Advised to cut down on the frequency of NSAIDs Add gabapentin 300 mg twice a day will consider getting approval for Botox to be performed as an outpatient. (5) Abnormal CT of the abdomen: Status: Acute Assessment and plan: GI has been consulted for further workup including endoscopy/colonoscopy. Patient is on Cipro and Flagyl for colitis
[2024-02-03] VITALS (21 sets, daily range): BP systolic 112–156; BP diastolic 61–79; PULSE 63–93; RESP 13–97; TEMP 36.1–37.9; O2SAT 93–100
[2024-02-03] MEDS: metroNIDAZOLE/NS 500 MG IVPB 500 MG/100 ML BAG 200 MG IV (05:22)
[2024-02-03 05:58] LABS: Basophils # (Auto) 0.1 Thou/mm3 (0.0-0.2); Basophils % (Auto) 1 % (0-2.5); Eosinophils % (Auto) 0 % (0-10); Hematocrit 36.2 % (36.0-46.0); Hemoglobin 12.3 g/dL (12.0-16.0); Immature Granulocytes % (Auto) 0 % (0-0); Immature Granulocytes Auto 0.02 Thou/mm3 (0.00-0.00); Lymphocytes # (Auto) 1.1 Thou/mm3 (1.0-4.8); Lymphocytes % (Auto) 11 % (10-50); Mean Corpuscular Hemoglobin 31.1 pg (25.0-35.0); Mean Corpuscular Volume 92 fL (80-100); Monocytes # (Auto) 0.6 Thou/mm3 (0.0-0.8); Monocytes % (Auto) 5 % (0-12); Neutrophils # (Auto) 8.8 Thou/mm3 (1.8-7.7); Neutrophils % (Auto) 83 % (37-80); Nucleated Red Blood Cell % 0 /100 WBC (0); Platelet Count 289 Thou/mm3 (140-440); RDW Standard Deviation 40.8 fL (36.4-46.3); Red Blood Count 3.95 Miln/mm3 (4.00-5.20); White Blood Count 10.6 Thou/mm3 (3.6-11.0)
[2024-02-03 06:19] LABS: Anion Gap 7 (7-16); BUN/Creatinine Ratio 17 Ratio (12-20); Blood Urea Nitrogen 10 mg/dL (9-23); Calcium 9.5 mg/dL (8.3-10.6); Carbon Dioxide 27.7 mMol/L (20.0-31.0); Chloride 94 mMol/L (98-107); Creatinine (Component) 0.6 mg/dL (0.6-1.3); Estimated Creatinine Clearance 83.5 mL/min (>60); Glucose 93 mg/dL (74-106); Osmolality,Calculated 257 (275-295); Potassium 3.8 mMol/L (3.4-5.1); Sodium 129 mMol/L (136-145); eGFR > 60 See Note
[2024-02-03] MEDS: ACETAMINOPHEN 325 MG TABLET 650 MG PO (07:57)
[2024-02-03] MEDS: Lisinopril 2.5 MG TABLET 10 MG PO (07:58)
[2024-02-03] MEDS: PANTOPRAZOLE 40 MG TABLET PO (07:59)
[2024-02-03] MEDS: DULoxetine HCL 30 MG CAPSULE PO (07:59)
[2024-02-03] MEDS: METOCLOPRAMIDE INJ 5 MG/ML VIAL 2 ML 10 MG IVP (07:59)
[2024-02-03] MEDS: LEVOFLOXACIN/D5W 750MG IVPB 750 MG/150 ML BAG 100 MG IV (07:59)
[2024-02-03] MEDS: GABAPENTIN 300 MG CAPSULE PO ×2 (09:19→21:04)
--- NOTE | 2024-02-03 09:19 | PC.SS ---
rounding note: Patient pending colonoscopy
--- NOTE | 2024-02-03 13:59 | ESPR_ITS ---
<Statement entered by Antonio Kennedy MD - 02/09/24 14:20> Attending attestation: I reviewed above note and agree with findings and plans. I have also personally examined the patient with medicine team and went over assessment and plan with medical team including digital intern and resident physician. Documentation for date of: 02/03/24 Subjective Subjective Interval history: EGD showing esophagitis and gastritis, biopsies taken. Patient had 1 episode of emesis with blood clots after procedure. Patient states she is feeling well. Patient reports nausea with emesis following EGD, both resolved. Patient complains of continued headaches, some improvement with medications. Started gabapentin for headaches. Switch to p.o. antibiotics. Plan for colonoscopy. Exam Vital Signs Temp Pulse Resp BP Pulse Ox O2 Del Method O2 Flow Rate 97.0 F 63 19 112/61 98 Room Air 3 02/03/24 12:00 02/03/24 12:00 02/03/24 12:00 02/03/24 12:00 02/03/24 12:00 02/03/24 12:00 02/02/24 20:20 Narrative Exam PE: Gen: Well-developed and well-nourished. HEENT: NCAT, PERRLA, EOMI, MMM, anicteric conjunctivae. CVS: normal S1 and S2. RRR. No M/R/G. Resp: CTA B/L. No rhonchi, rales, crackles or wheezing. Abd: soft, non-tender, non-distended. MSK: Good ROM in BUE & BLE. No edema or rash. Neuro: CN II-XII grossly intact. Strength 5/5 in BUE & BLE. Alert and oriented x3. Choreiform movements. Psych: appropriate mood and affect. Objective Labs 02/03/24 05:05 02/03/24 05:05 Labs: Laboratory Results - last 24 hr 02/03/24 05:05 WBC 10.6 RBC 3.95 L Hgb 12.3 Hct 36.2 MCV 92 MCH 31.1 MCHC 34.0 RDW Std Deviation 40.8 Plt Count 289 D Neut % (Auto) 83 H Lymph % (Auto) 11 [place] % (Auto) 5 Eos % (Auto) 0 Baso % (Auto) 1 Neut # (Auto) 8.8 H Lymph # (Auto) 1.1 [place] # (Auto) 0.6 Eos # (Auto) 0.0 Baso # (Auto) 0.1 Immature Gran # (Auto) 0.02 H Absolute Nucleated RBC 0.00 Immature Gran % 0 Nucleated RBC % 0 Sodium 129 L Potassium 3.8 Chloride 94 L Carbon Dioxide 27.7 Anion Gap 7 BUN 10 Creatinine 0.6 Estim Creat Clear Calc 83.5 eGFR > 60 BUN/Creatinine Ratio 17 Glucose 93 Calculated Osmolality 257 L Calcium 9.5 ABG Interpretation ABG results: 01/31/24 15:57 VBG pH 7.44 VBG pCO2 43 VBG pO2 29 VBG Base Excess 4 H Quality Measures Quality Measures none Assessment & Plan Assessment Current Active Medications: Generic Name Dose Route Start Last Admin Trade Name Freq PRN Reason Stop Dose Admin Acetaminophen 650 mg 02/01/24 00:32 Acetaminophen 325 Mg Tablet PO 03/02/24 00:31 Q6H PRN Fever >101.5 Acetaminophen 650 mg 02/01/24 13:17 02/03/24 07:57 Acetaminophen 325 Mg Tablet PO 03/02/24 13:16 650 mg Q4HR PRN Administration PAIN Amoxicillin/Clavulanate Potassium 1 tab 02/03/24 21:00 Amoxicillin/Pot Clav 875 Tablet PO 02/10/24 20:59 BID ROGER Aspirin 81 mg 02/02/24 09:00 02/03/24 07:52 Aspirin Ec 81 Mg Tabec PO 03/03/24 08:59 Not Given QDAY ROGER Atorvastatin Calcium 80 mg 02/01/24 21:00 02/02/24 21:12 Atorvastatin Calcium 20 Mg Tablet PO 03/02/24 20:59 80 mg HS ROGER Administration Clopidogrel Bisulfate 75 mg 02/02/24 09:00 02/03/24 07:52 Clopidogrel Bisulfate 75 Mg Tablet PO 03/03/24 08:59 Not Given QDAY ROGER Diphenhydramine HCl 12.5 mg 02/01/24 01:39 Diphenhydramine Elix 25 Mg/10 Ml Udc PO 03/02/24 01:44 Q6H PRN Migraine / Headache Protocol Duloxetine HCl 30 mg 02/02/24 09:00 02/03/24 07:59 Duloxetine Hcl 30 Mg Capsule PO 03/03/24 08:59 30 mg QDAY ROGER Administration Gabapentin 300 mg 02/03/24 09:00 02/03/24 09:19 Gabapentin 300 Mg Capsule PO 03/04/24 08:59 300 mg BID ROGER Administration Heparin Sodium (Porcine) 5,000 unit 02/01/24 21:00 02/03/24 07:52 Heparin Sod Inj 5000 Unit/Ml Vial SC 02/15/24 20:59 Not Given Q12HR ROGER Lisinopril 10 mg 02/01/24 09:00 02/03/24 07:58 Lisinopril 2.5 Mg Tablet PO 03/02/24 08:59 10 mg QDAY ROGER Administration Metoclopramide HCl 10 mg 02/03/24 09:00 02/03/24 07:59 Metoclopramide Inj 5 Mg/Ml Vial 2 Ml IVP 03/04/24 08:59 10 mg QDAY ROGER Administration Protocol Ondansetron HCl 4 mg 02/01/24 00:32 02/01/24 15:32 Ondansetron Inj 2 Mg/Ml Inj 2 Ml IV 03/02/24 00:31 4 mg Q6H PRN Administration NAUSEA OR VOMITING Protocol Pantoprazole Sodium 40 mg 02/01/24 09:00 02/03/24 07:59 Pantoprazole 40 Mg Tablet PO 03/02/24 08:59 40 mg QDAY ROGER Administration Plan 58 y/o F with PMHx significant for hypertension, frequent migraines, CVA, fibromyalgia, hyperlipidemia, anxiety and allergic rhinitis came to ED for nausea and vomiting with associated fever/chills, admitted for gastroenteritis. #Gastroenteritis with sepsis, viral versus bacterial On admission patient complaining of generalized weakness, fever, N/V and decreased p.o. intake. Patient met 3/4 SIRS criteria: Leukocytosis 11.5, fever 102, tachycardia 103. CT of chest abdomen pelvis indicative of mild colitis and diffuse enteritis. CT also showed gastritis, unable to rule out underlying gastric tumor. Patient received 1 L bolus normal saline, Rocephin, Tylenol in the ED. Patient also received IVF normal saline 75 mL/h x 1 L. Empiric antibiotics Cipro and Flagyl initiated. GI consulted. Switch to p.o. antibiotics. Urine and blood cultures negative. -Cipro and Flagyl (01/31 -02/02) -Augmentin 875 p.o. twice daily (started 02/02) -GI consult appreciated -Follow-up colonoscopy -Tylenol 650 mg p.o. every 6 hours as needed for fever or pain #Cancer workup CT of abdomen showed gastritis, unable to rule out underlying gastric tumor. Tumor markers were drawn, CA125 was positive. aFP, CEA, CA 15-3 negative. CA 19?9 pending. Oncology consulted. Patient reports history of salpingo- oophorectomy. TVUS unremarkable. EGD performed, only showed esophagitis and gastritis, biopsies taken. -Follow-up CA 19?9 -Oncology consult appreciated #Worsening migraines, most likely secondary to viral enteritis On admission patient complaining of worsening headaches. Patient used to take Excedrin, was discontinued after recent CVA. Patient received 1 dose of IV Toradol. -Reglan 10 mg IV every 8 hours as needed for headaches -Diphenhydramine 12.5 mg as needed for migraines/headaches -Gabapentin 300 mg p.o. twice daily -Neurologist Dr Santiago consulted, recommendations greatly appreciated #Hypertension Patient has history of hypertension, on home lisinopril. Patient has had elevated BP during admission. -Resume home meds: Lisinopril 10 mg p.o. daily -Continue to monitor, will adjust if needed #Pulmonary nodule, incidental finding Patient had incidental finding of 10 mm pulmonary nodule on CT. Nodule does not appear on previous imaging. Patient and family were made aware. 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 -Resume home meds: Aspirin 81 mg p.o. daily, atorvastatin 80 mg p.o. at bedtime, Plavix 75 mg p.o. daily. -Resume home med: Duloxetine 30 mg p.o. daily DVT prophylaxis: Heparin GI prophylaxis: Protonix Diet: Clear liquid diet Lines: Peripheral IV Code status: Full code Plan of care discussed with senior resident Dr. David PGY?[address] Kennedy. Devyn Andrews MD PGY-1 Senior Resident Attestation: The patient is a 58-year-old female with significant past medical history of HTN, recent CVA, frequent migraines, hyperlipidemia, anxiety and allergic rhinitis who presented to ED with chief complaint of clumsy on vomiting associated with fever and chills is currently being evaluated for acute gastroenteritis. The patient was interviewed and examined at the bedside this morning. She reported doing well. Her vitals were stable, physical examination was unremarkable. Labs are significant for sodium level 129, Chloride 94 and osmolality 257. The patient is planned for`colonoscopy this evening. We will follow-up on CA 19-9, follow-up on oncology recommendations. She was started on gabapentin 300 Mg twice daily for migraine. Pending further recs from Dr. Pompa for discharge after colonoscopy. I discussed with and supervised the digital intern physician involved in the care of this patient. I personally saw and examined the patient and discussed the assessment and plan with the entire medicine team, including my attending. I agree with the assessment and plan as documented above. João David MD PGY2 Internal Medicine
--- NOTE | 2024-02-03 15:00 | CHAP ---
This patient was visited by the Spiritual Care Volunteer from whom they received communion. (Volunteer was in the hospital from 13:40-15:00).
--- NOTE | 2024-02-03 19:45 | SUR.PHASEI ---
1944 Patient arrived to recovery, report received from Lorena MERA
--- NOTE | 2024-02-03 20:22 | SUR.PHASEI ---
2021 Report given to Alana MERA, patient sitting up in bed drowsy talking to staff, breathing unlabored, vital signs stable, denies pain and nausea
--- NOTE | 2024-02-03 20:25 | SUR.PHASEI ---
2024 patient transported via rney to room 352 without incident, patient awaiting in the room, patient able to ambulate with standby assisted from gurney to bed, patient resting comfortably in bed with call light in reach when this fiction and nonfiction writer prose left patients room
--- NOTE | 2024-02-03 20:33 | PC.NURSE ---
Patient back from having colonoscopy at 2032. Pt placed comfortably in bed, still a little drowsy, no c/o pain or discomfort.
[2024-02-03] MEDS: ATORVASTATIN CALCIUM 20 MG TABLET 80 MG PO (20:58)
[2024-02-03] MEDS: AMOXICILLIN/POT CLAV 875 TABLET 1 TAB PO (20:58)
--- NOTE | 2024-02-03 23:08 | VVPN_ITS ---
Telemedicine visit statement This visit was conducted with the use of phone was obtained on 02/03/24. Documentation for date of: 02/03/24 Subjective Subjective Interval history: Patient is in medtelemetry. Complaining of frequent headaches and is on Tylenol frequently. Balance and coordination are improving. Virtual exam Vital Signs Temp Pulse Resp BP Pulse Ox O2 Del Method O2 Flow Rate 97.4 F 71 19 129/64 94 L Room Air 3 02/03/24 20:45 02/03/24 20:45 02/03/24 20:45 02/03/24 20:45 02/03/24 20:45 02/03/24 20:45 02/03/24 19:35 Objective Labs 02/03/24 05:05 02/03/24 05:05 Labs: Laboratory Results - last 24 hr 02/03/24 05:05 WBC 10.6 RBC 3.95 L Hgb 12.3 Hct 36.2 MCV 92 MCH 31.1 MCHC 34.0 RDW Std Deviation 40.8 Plt Count 289 D Neut % (Auto) 83 H Lymph % (Auto) 11 [place] % (Auto) 5 Eos % (Auto) 0 Baso % (Auto) 1 Neut # (Auto) 8.8 H Lymph # (Auto) 1.1 [place] # (Auto) 0.6 Eos # (Auto) 0.0 Baso # (Auto) 0.1 Immature Gran # (Auto) 0.02 H Absolute Nucleated RBC 0.00 Immature Gran % 0 Nucleated RBC % 0 Sodium 129 L Potassium 3.8 Chloride 94 L Carbon Dioxide 27.7 Anion Gap 7 BUN 10 Creatinine 0.6 Estim Creat Clear Calc 83.5 eGFR > 60 BUN/Creatinine Ratio 17 Glucose 93 Calculated Osmolality 257 L Calcium 9.5 ABG Interpretation ABG results: 01/31/24 15:57 VBG pH 7.44 VBG pCO2 43 VBG pO2 29 VBG Base Excess 4 H Assessment & Plan Assessment (1) Recent cerebrovascular accident: With gait ataxia, improved Continue with aspirin and Plavix and statin (2) Fever: Secondary to colitis most likely, trending down with a temp of 100.2 Continue with antibiotics (3) Chronic migraine: Now on Tylenol frequently every 4 hours which could be causing rebound headache as well. Advised to cut down on the frequency of NSAIDs continue gabapentin 300 mg twice a day will consider getting approval for Botox to be performed as an outpatient. (5) Abnormal CT of the abdomen: Colonoscopy showed hemorrhoids and diverticulitis Patient is on Cipro and Flagyl for colitis
[2024-02-04] VITALS: BP 129/67; PULSE 78; RESP 15; TEMP 38.1; O2SAT 96
[2024-02-04] MEDS: ACETAMINOPHEN 325 MG TABLET 650 MG PO (00:44)
[2024-02-04 04:00] VITALS: BP 122/60; PULSE 68; RESP 16; TEMP 37.1; O2SAT 99
[2024-02-04 08:00] VITALS: BP 142/78; PULSE 72; RESP 16; TEMP 36.8; O2SAT 94
[2024-02-04 09:07] LABS: Basophils # (Auto) 0.1 Thou/mm3 (0.0-0.2); Basophils % (Auto) 1 % (0-2.5); Eosinophils % (Auto) 0 % (0-10); Hematocrit 38.9 % (36.0-46.0); Hemoglobin 13.1 g/dL (12.0-16.0); Immature Granulocytes % (Auto) 0 % (0-0); Immature Granulocytes Auto 0.03 Thou/mm3 (0.00-0.00); Lymphocytes # (Auto) 1.1 Thou/mm3 (1.0-4.8); Lymphocytes % (Auto) 13 % (10-50); Mean Corpuscular HGB Conc 33.7 g/dl (31.0-37.0); Mean Corpuscular Hemoglobin 30.8 pg (25.0-35.0); Mean Corpuscular Volume 92 fL (80-100); Monocytes # (Auto) 0.8 Thou/mm3 (0.0-0.8); Monocytes % (Auto) 9 % (0-12); Neutrophils # (Auto) 6.8 Thou/mm3 (1.8-7.7); Neutrophils % (Auto) 77 % (37-80); Nucleated Red Blood Cell % 0 /100 WBC (0); Platelet Count 282 Thou/mm3 (140-440); RDW Standard Deviation 41.3 fL (36.4-46.3); Red Blood Count 4.25 Miln/mm3 (4.00-5.20); White Blood Count 8.9 Thou/mm3 (3.6-11.0)
[2024-02-04 09:26] VITALS: BP 142/78; PULSE 72
[2024-02-04] MEDS: Lisinopril 2.5 MG TABLET 10 MG PO (09:26)
[2024-02-04] MEDS: ASPIRIN EC 81 MG TABEC PO (09:26)
[2024-02-04] MEDS: HEPARIN SOD INJ 5000 UNIT/ML VIAL SC (09:26)
[2024-02-04] MEDS: AMOXICILLIN/POT CLAV 875 TABLET 1 TAB PO (09:26)
[2024-02-04] MEDS: DULoxetine HCL 30 MG CAPSULE PO (09:27)
[2024-02-04] MEDS: PANTOPRAZOLE 40 MG TABLET PO (09:27)
[2024-02-04] MEDS: GABAPENTIN 300 MG CAPSULE PO (09:27)
[2024-02-04] MEDS: CLOPIDOGREL BISULFATE 75 MG TABLET PO (09:27)
[2024-02-04] MEDS: METOCLOPRAMIDE INJ 5 MG/ML VIAL 2 ML 10 MG IVP (09:33)
[2024-02-04 09:38] LABS: Albumin, Serum 3.9 gm/dL (3.5-5.0); Albumin/Globulin Ratio 1.1 (1.2-2.2); Alkaline Phosphatase 78 U/L (46-116); Anion Gap 5 (7-16); Aspartate Amino Transferase 12 U/L (0-34); BUN/Creatinine Ratio 13 Ratio (12-20); Bilirubin,Total 0.9 mg/dL (0.3-1.2); Blood Urea Nitrogen 8 mg/dL (9-23); Calcium 9.7 mg/dL (8.3-10.6); Calcium (Corrected) 9.8 mg/dL (8.5-10.1); Carbon Dioxide 29.3 mMol/L (20.0-31.0); Chloride 95 mMol/L (98-107); Creatinine (Component) 0.6 mg/dL (0.6-1.3); Estimated Creatinine Clearance 83.5 mL/min (>60); Globulin 3.5 gm/dL (2.3-3.5); Glucose 93 mg/dL (74-106); Osmolality,Calculated 257 (275-295); Potassium 3.4 mMol/L (3.4-5.1); Sodium 129 mMol/L (136-145); Total Protein 7.4 gm/dL (5.7-8.2); eGFR > 60 See Note
[2024-02-04 09:39] LABS: Alanine Aminotransferase 8 U/L (10-49)
[2024-02-04 10:19] VITALS: RESP 94
[2024-02-04 12:00] VITALS: BP 147/79; PULSE 77; RESP 18; TEMP 36.7; O2SAT 97
--- NOTE | 2024-02-04 13:00 | PC.NURSE ---
In to D/C pt home, pt asleep but woke easily, pt seemed more sleepy since the AM, asked if pt was ok and felt ok to go home, both pt and were ok with discharge home, all d/c paperwork and instruction given via clinical dietitian Emerson #[id number], pt son also stated they felt ready and safe pt to go home
--- NOTE | 2024-02-04 13:39 | ESDS_ITS ---
<Statement entered by Antonio Kennedy MD - 02/09/24 14:21> Attending attestation: I reviewed above note and agree with findings and plans. I have also personally examined the patient with medicine team and went over assessment and plan with medical team including event planning intern and resident physician. Planned Discharge Date 02/04/24 DS: Providers Provider Date of admission: 02/03/24 09:26 Primary care physician: Julian Mckoy MD Admitting Provider: Gerardo Johnson MD Attending Provider on Admission: Dahiana Gonzalez DO Consults: 02/01/24 00:07 Consult to Neurology / Tele-Neurology Stat Comment: Consulting Provider: Varun Santiago 02/01/24 02:07 Referral Physical Therapy Routine Comment: Physician Instructions: 02/02/24 10:21 Consult to Oncology Stat Comment: Consulting Provider: Leo Wetzel 02/02/24 22:47 Consult to Gastroenterology Routine Comment: Consulting Provider: Praveena Pompa Attending Provider on DC: Antonio Kennedy MD Discharging Provider: Sergo Kaplan DO DS: Diagnosis Problem List Completed Was Problem List Reviewed/Reconciled?: Yes Hospital Course Hospital Course Hospital course: Discharge summary: 58-year-old female patient with significant medical history for hypertension, frequent migraines, fibromyalgia, hyperlipidemia, anxiety and allergic rhinitis came to ED for worsening headaches, fever, nausea, vomiting, generalized weakness, and decreased p.o. intake. Admitted for gastroenteritis. ED vitals were significant for pulse 103 and temperature 102F. Patient was given x 1 Cogentin as per physical exam she was seen to have EPS/tardive dyskinesia and rocephin, tylenol for SIRS criteria. Lab was significant for WBC 11.5. Urinalysis was negative for UTI, head CT was negative for hemorrhage or midline shift, chest x-ray was negative for any active disease. Chest/abdomen/pelvis CT indicative of: 10 mm pulmonary nodule right lower lobe, recommend 6 month follow-up CT chest without contrast. Gastritis pattern, underlying gastric tumor not excluded, reticular pattern in the peritoneum, peritonitis, Enteritis pattern with diffuse mild colitis pattern. Patient will be admitted to [facility] observation for viral gastritis, dehydration requiring IV fluids and migraine management. Patient was started on Cipro and Flagyl for initial empiric coverage and switch to Augmentin. GI was consulted. Patient had EGD and colonoscopy, EGD showed esophagitis and gastritis, biopsies were performed. Colonoscopy with hemorrhoids and diverticula. Patient will follow-up with GI or PCP for EGD pathology results. Due to findings on CT abdomen and pelvis GI recommended we order tumor markers, elevated CA 125. Patient to follow-up with oncology outpatient for elevated CA125 after return of pathology results. We started on a 6-week course of Protonix for the gastritis and esophagitis. Did not send home with antibiotic prescription as symptoms are most likely secondary to viral gastroenteritis and patient was at her baseline by the time of discharge, without abdominal pain and tolerating p.o. intake. Discussed increasing her water intake to help with worsening migraines to help with headaches, especially because she notes she has been having some diarrhea and this can lead to dehydration and worsen headaches. Patient to follow-up with her PCP for further workup of the 10 mm pulmonary nodule. Patient was discharged from hospital Discharge instructions: Please follow up with PCP in 1-2 weeks for stomach biopsy results Follow up with Dr Santiago in 1 week to continue management of migraines Continue taking all medications as previously prescribed Follow up with Oncology, Dr Wetzel for further work up for elevated CA 125 Please return to the ER if you experience new or worsened symptoms. Programe lili luz maria de seguimiento con mckenzie Doctor de cuidados primarios entre 1-2 semanas, para obtener los resultados de la biopsia del [place]. Programe lili luz maria de seguimiento con la Dra. Santiago para que continue el tratamiento para las migranas. Siga tomanda todo los medicamentos que estaba tomado previamente. Faraz un seguimiento con el especialista de Oncolog?aDr. Wetzel para realizar m?s estudios sobre CA 125 elevado. Regrese a la richardson de emergencias si experimenta s?ntomas nuevos o que empeoran. Discharge diagnosis: #Gastroenteritis with sepsis, viral versus bacterial #Cancer workup #Worsening migraines, most likely secondary to viral enteritis #Hypertension #Pulmonary nodule, incidental finding #Fibromyalgia #Recent acute infarct of right cerebellar hemisphere and right superior vermis #Hyperlipidemia I evaluated manage patient with my senior Dr. Garza and attending Dr. Obad, Sergo Kaplan DO, PGY1 Time Spent with Patient Time attestation: Total time spent providing and/or coordinating discharge services: Time spent: Greater than 30 minutes Exam Vital Signs Temp Pulse Resp BP Pulse Ox O2 Del Method O2 Flow Rate 98.1 F 77 18 147/79 H 97 Room Air 3 02/04/24 12:00 02/04/24 12:00 02/04/24 12:00 02/04/24 12:00 02/04/24 12:00 02/04/24 12:00 02/03/24 19:35 Narrative Exam Constitutional: Well nourished and in no acute distress Head: Normocephalic/Atraumatic ENMT: Moist Mucous Membranes CVS: RRR, S1 and S2 present, no murmurs, rubs or gallops . RESP: CTAB, no increased work of breathing, no rales, rhonchi or wheezing GI: Abdomen is soft, nondistended, nontender throughout Skin: Warm to touch, Dry. Psych: (AAO) x3 . Appropriate mood and affect. Discharge Plan Plan Patient Disposition: Home w/HOME HEALTH Disposition Comment: Home with home health for outpatient PT Patient condition on transfer: Stable Prescriptions/Referrals Prescriptions/Med Rec: Continued atorvastatin 80 mg tablet 80 mg PO HS 30 Days Qty: 30 0RF clopidogrel 75 mg Tablet 75 mg PO QDAY 30 Days Qty: 30 0RF aspirin 81 mg tablet,delayed release (DR/EC) 81 mg PO QDAY 21 Days Qty: 21 0RF prochlorperazine maleate 5 mg tablet 5 mg PO 4XD PRN (Reason: Nausea And Vomiting) acetaminophen 500 mg tablet 500 mg PO Q8HR meclizine 25 mg tablet 25 mg PO Q12H PRN (Reason: Dizziness) duloxetine 30 mg capsule,delayed release(DR/EC) 30 mg PO QDAY Referrals: Julian Mckoy MD [Primary Care Provider] - Leo Wetzel MD [Physician] - Praveena Pompa MD [Physician] - Patient/Caregiver Discharge Instructions Other Discharge Activity Instructions:: Please follow up with PCP in 1-2 weeks for stomach biopsy results Follow up with Dr Santiago in 1 week to continue management of migraines Continue taking all medications as previously prescribed Follow up with Oncology, Dr Wetzel for further work up for elevated CA 125 Please return to the ER if you experience new or worsened symptoms. Programe lili luz maria de seguimiento con mckenzie Doctor de cuidados primarios entre 1-2 semanas, para obtener los resultados de la biopsia del [place]. Programe lili luz maria de seguimiento con la Dra. Santiago para que continue el tratamiento para las migranas. Siga tomanda todo los medicamentos que estaba tomado previamente. Faraz un seguimiento con el especialista de Oncolog?a, Dr. Wetzel para realizar m?s estudios sobre CA 125 elevado. Regrese a la richardson de emergencias si experimenta s?ntomas nuevos o que empeoran. Print Language: Estonian Stand Alone Forms: Sarah Award Info., Patient Portal Info Letter Discharge Order Discharge Orders: Discharge (Routine); Ordered 02/04/24 Ordered By: Manuel Garza Quality Discharge Quality Measures VTE prophylaxis
[2024-02-04 14:29] LABS: Cocci Serology, IgM Positive (Negative)
[2024-02-04 14:30] LABS: Cocid Sro, CF/ID (UCD) NO CHG* See Sep Rpt
--- NOTE | 2024-02-04 16:07 | PC.SS ---
SS followed up with transfer nurse SS met with pt at bedside using all precautions confirmed no preference for HH; SS had nurse hospital clinic assistant translate
--- NOTE | 2024-02-05 07:25 | PC.CM ---
Addendum entered by Cary Tesfaye RN 02/05/24 17:08: Called Dr. Kennedy's resident, unable to speak to anyone. Addendum entered by Cary Tesfaye RN 02/05/24 16:12: called Dr. Kennedy again to place HH orders. Left VM. Addendum entered by Cary Tesfaye RN 02/05/24 14:29: called Dr. Kennedy again to place HH orders. Left VM. Addendum entered by Cary Tesfaye RN 02/05/24 10:47: called and notified Dr. Kennedy to place HH orders in. Original Note: I reviewed pt chart and found pt previous admission was beginning of this month and pt was discharged home with [facility] with soc of 01/31/24.
--- NOTE | 2024-02-06 08:52 | PC.CC ---
Addendum entered by Marina Man RN 02/06/24 10:11: Pt booked with [facility], pending SOC Original Note: HH referrals sent at this time
[2024-02-07 06:44] LABS: CA 19-9 Antigen* 6 U/mL (<34)
--- NOTE | 2024-02-08 11:51 | PC.CC ---
TEQUILA CC spoke with [facility]. SOC set for 02/10/24. Inquiry updated in [facility] to reflect.
== END 2024-02-04 13:15 | disposition home health service (06) | DRG 392 ==
LOC: SERX 20:14 → SERHOLD 02-01 06:36 → S3NX 02-01 08:07
PROVIDERS: Emergency Medicine; Internal Medicine; Psychiatry & Neurology Neurology; Specialist; Student in an Organized Health Care Education/Training Program; Admitting Provider Student in an Organized Health Care Education/Training Program; Emergency Provider Emergency Medicine; PCP Family Medicine; Visit Provider Internal Medicine
PROC: 0DB68ZX Excision of Stomach, Via Natural or Artificial Opening Endoscopic, Diagnostic (ICD-10-PCS; CPT 43239; principal; 2024-02-02 16:30)
PROC: 0DJD8ZZ Inspection of Lower Intestinal Tract, Via Natural or Artificial Opening Endoscopic (ICD-10-PCS; CPT 45378; principal; 2024-02-03 17:30)
DX: K52.9 Noninfective gastroenteritis and colitis, unspecified (principal); E87.1 Hypo-osmolality and hyponatremia; G43.909 Migraine, unspecified, not intractable, without status migrainosus; R91.1 Solitary pulmonary nodule; I10 Essential (primary) hypertension; M79.7 Fibromyalgia; Z86.73 Personal history of transient ischemic attack (TIA), and cerebral infarction without residual deficits; E78.5 Hyperlipidemia, unspecified; K29.70 Gastritis, unspecified, without bleeding; K20.90 Esophagitis, unspecified without bleeding; K57.30 Diverticulosis of large intestine without perforation or abscess without bleeding; K64.9 Unspecified hemorrhoids
CPT/HCPCS: 36415; 70450; 71045; 71260; 74177; 76830; 80048; 80053; 80307; 80320; 81001; 82105; 82140; 82378; 82803; 83605; 83735; 83880; 84100; 84145; 84484; 84702; 84703; 85025; 85610; 86300; 86301; 86304; 86635; 86850; 86900; 86901; 87040; 87081; 87086; 87400; 87502; 87651; 87811; 93005; 96361; 96365; 96372; 96375; 97162; 99285; A4649; G0378; J0696; J0744; J1200; J1643; J1885; J1956; J2250; J2405; J2765; J3010; J3490; J7030; Q9967; A9270; G0480; J1644; J1836

== ENCOUNTER 2024-02-28 14:25 | Inpatient (IN) | payer BC, SELFPAY ==
[2024-02-28] VITALS (7 sets, daily range): BP systolic 112–138; BP diastolic 65–90; PULSE 68–84; RESP 12–17; TEMP 36.8–36.9; O2SAT 97–99; BMI 26.5
--- NOTE | 2024-02-28 | XR_ITS ---
Examination: MRI brain without intravenous contrast. Date and time of exam: February 28, 2024 1813 hrs. Comparison January 21, 2024 Indications: Stroke alert today, onset right-sided hemiparalysis right facial droop unable to speak Technique: Multiple axial and sagittal images of the brain obtained. Siemens high-resolution 1.5 Slime short bore scanners utilized. Sagittal sections, T1-weighted, TR 500, TE 14, are performed. Axial sections proton-density and T2-weighted have been obtained. Inversion recovery axial images, TR 9, 260, TE 111, TI 2500. Diffusion weighted images, axial sections, TR 4800, TE 128, B value 1000 Axial sections, ADC map, TR 4800, TE 128 Findings: Enlargement of the sella turcica is not present. The optic chiasm and infundibular are not remarkable. Prepontine and interpeduncular cisterns are not enlarged. There is no localized enlargement of the medulla or awilda. Fourth ventricle and cerebellar tonsils appear normal in position. No subacute area of hemorrhage density is seen. Mass in the cerebellopontine angle region is not evident. Globes symmetrical. Orbital musculature including medial lateral rectus muscles do not exhibit abnormality. Diffusion-weighted images demonstrate no focus of restricted diffusion. Increased white matter signal evident, very prominent punctate foci of increased signal in the white matter actually progressed compared to January 21, 2024 Mass effect upon the ventricular system is not identified. Impression: Very prominent foci of increased signal in the white matter, demyelinating disease pattern
--- NOTE | 2024-02-28 14:28 | XR_ITS ---
Examination: CTA carotids with intravenous contrast CTA brain, head with intravenous contrast. 2-D sagittal, coronal reconstructions. 3-D reconstructions. Exam date and time: February 28, 2024 1441 hours INDICATIONS: Stroke alert today, onset right-sided body weakness beginning 12 noon CTDI: vol (mGy) 22.2 DLP: (mGycm) 405 Technique: Multiple CTA axial brain, head carotid images post intravenous contrast injection 75 cc, [id number]. 2-D sagittal, coronal reconstructions. 3-D reconstructions, 3-D post processing including vascular maximum intensity projection images. Low dose protocols were performed. One or more of the following dose reduction techniques were used; automated exposure control, adjustment of the mA and/or KV according to patient size, use of iterative reconstruction technique. Findings: Multiple subcentimeter right thyroid nodules No significant common carotid carotid bifurcation or internal carotid artery stenoses Dominant left vertebral artery with no critical stenoses No cerebral large vessel arterial occlusions, thrombus, dissection or cerebral aneurysm IMPRESSION: No significant neck arterial stenoses Multiple subcentimeter right thyroid nodules No cerebral large vessel arterial occlusions, thrombus, dissection or cerebral aneurysm
--- NOTE | 2024-02-28 14:28 | EKG_ITS ---
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
--- NOTE | 2024-02-28 14:28 | XR_ITS ---
Examination: CT brain head without contrast. 2-D sagittal coronal reconstructions Date and time of exam:February 28, 2024 1430 hours INDICATIONS: Stroke alert, onset right-sided body weakness beginning 12 noon today COMPARISON: February 02, 2024 CTDI: vol (mGy):44 DLP: (mGycm):799 Technique: Multiple CT axial sections of the brain have been obtained, 5 mm slice thickness. Contrast has not been administered. 2-D sagittal, coronal reconstructions have been obtained Low dose protocols were performed. One or more of the following dose reduction techniques were used; automated exposure control, adjustment of the mA and/or KV according to patient size, use of iterative reconstruction technique. Findings: No significant ventricular enlargement. Subtle hyperdensity in the basal cisterns, for instance axial image 26 and 27 especially on the right side No mass effect or midline shift Basal cisterns are not remarkable. Fourth ventricle is midline. Cranial vault intact. Impression: Suspicious for subarachnoid hemorrhage basal cisterns, recommend short-term follow-up Recommend brain MRI MRA pre and post contrast follow-up
--- NOTE | 2024-02-28 14:42 | PD.EDNEURO ---
Neuro Symptoms Deficit-RME/HPI General Stated Complaint: STROKE Time Seen by Provider: 02/28/24 14:28 Arrival date/time: 02/28/24 14:25 RME / HPI RME / HPI Narrative: 58 year old female with past medical history significant for hypertension, hyperlipidemia, CVA, migraines presents to the Emergency Department [facility] with complaint of acute onset of right side hemiparesis right facial droop and and loss of verbal onset at 12 noon today. Patient arrived approximately 1410 hrs. by EMS. Has obvious right-sided deficits and stroke alert was called. No other information at this time. Related Data Home Medications ?Medication ?Instructions ?Recorded ?Confirmed acetaminophen 500 mg tablet 500 mg PO Q8HR 02/01/24 02/01/24 duloxetine 30 mg capsule,delayed 30 mg PO QDAY 02/01/24 02/01/24 release meclizine 25 mg tablet 25 mg PO Q12H PRN Dizziness 02/01/24 02/01/24 prochlorperazine maleate 5 mg 5 mg PO 4XD PRN Nausea And Vomiting 02/01/24 02/01/24 tablet Allergies Allergy/AdvReac Type Severity Reaction Status Date / Time No Known Allergies Allergy Verified 02/03/24 18:57 Review of Systems Review of Systems ROS Unobtainable: unobtainable due to medical condition Past Medical History Past Medical History NEUROLOGIC: Positive Neurological Disorders, Cerebrovascular Accident (01/21/2024) and Migraine; Negative Seizures CARDIAC: Positive Cardiac Disorders and Hypertension; Negative Congestive Heart Failure RESPIRATORY: Negative Chronic Obstructive Pulmonary Disease (COPD) or Asthma GASTROINTESTINAL: Negative Gastrointestinal Disorders GENITOURINARY: Negative Genitourinary Disorders or Renal Disease REPRODUCTIVE: Positive Previous Pregnancies MUSCULOSKELETAL: Positive Musculoskeletal Disorders and Arthritis ENDOCRINE: Negative Endocrine Disorders, Diabetes Mellitus Type 1 or Diabetes Mellitus Type 2 HEMATOLOGIC: Negative Blood Disorders or Sickle Cell Disease PSYCHO/SOCIAL: Positive Depression and Anxiety OTHER HISTORY: Negative Hospitalization, Autoimmune Disease, Down Syndrome, Developmental Delay, Shingles, Falls, Blood Transfusions, Blood Transfusion Reaction, Anesthesia Reactions, Organ Transplant, Chemotherapy, Radiation Therapy, Hyperbaric Therapy, MRSA, VRSA, Vancomycin-Resistant Enterococci or Cancer Family History FAMILY HISTORY: Negative Family Psychiatric Problems, Family Respiratory Disorders, Family Cardiac Disorders, Family Gastrointestinal Problems, Family Cancer, Family Surgery or Family Anesthesia Reaction Surgical History SURGICAL: Positive Hysterectomy; Negative Organ Transplant Social History SMOKING STATUS: Former smoker SECOND HAND EXPOSURE: No SUBSTANCE USE: does not use ALCOHOL: Never ED Exam Narrative Physical exam: Physical Exam: General: The vital signs were reviewed. Opens eyes responds to questions unable to get any words out the patient is non-toxic, in no apparent distress and appears healthy with a patent airway, no respiratory distress and has no apparent circulatory problems. Head & Scalp: Normocephalic, atraumatic. Face: Appears normal and is without lesions, deformity. Ears: Left external pinna appears normal. Right external pinna appears normal. Eyes: The sclera is anicteric. No obvious photophobia. The Left and Right Orbit/Lid/Conjunctiva appears normal without swelling, discoloration or injection. Nose: The nose is without deformity, discharge or tenderness; Throat: Appears normal. The mucous membranes are pink and moist without exudates, redness or mass seen. The tongue appears normal. Neck: The neck is supple and no apparent mass or adenopathy. Chest: The chest wall is normal in size and symmetry and has no chest wall tenderness or crepitus. The patient displays normal ventilator effort without retractions, accessory muscle use and has adequate air movement bilaterally with no wheezes and no rales. Cardiovascular: Regular rate and rhythm; No murmurs, rubs, or gallops; Gastrointestinal: The abdomen appears normal. No obvious hernias or mass. The abdomen is soft and benign, non-distended, with no pain, no guarding and no rebound tenderness. Bowel sounds are present and normal sounding. No CVA tenderness. Genitourinary: Back/Spine: Normal inspection Extremities/Musculoskeletal/lymphatic: The bilateral upper and lower extremities are warm. There is no evidence of arterial insufficiency. There is no evidence of venous insufficiency/edema. The patient spontaneously moves bilateral upper and lower extremities with no pain and no limitation of movement. There is no apparent, injury or trauma. Skin: The skin is warm, dry and intact. No rashes. No petechia. No purpura. No abnormal bruising. The color is appropriate with no cyanosis. Mental status/Psychiatric: Mental status is observed and attentive but nonverbal Neurological: The patient is awake, alert, interactive, no spontaneous movement of the right side there is obvious slight right facial droop. Patient responds to questions with verbal gestures but is unable to get words out and has an obvious aphasia. Course Quality Measures none Orders Category Date Time Status Bedside Blood Glucose NOW Care 02/28/24 14:28 Active Monotyper NOW Care 02/28/24 14:28 Active Continuous Pulse Oximetry NOW Care 02/28/24 14:28 Completed EKG (ED ONLY) *Do not use* NOW Care 02/28/24 14:28 Completed In and Out Catheter NEEDED Care 02/28/24 14:28 Active Insert IV NOW Care 02/28/24 14:28 Active MRI Screening NOW Care 02/28/24 17:35 Active NIH Stroke Scale now Care 02/28/24 14:28 Active NPO NOW Care 02/28/24 14:28 Active Nurse Swallow Screen x1 Care 02/28/24 14:28 Active Consult to Neurology / Tele-Neurology Routine Cons 02/28/24 14:[address] angio stroke protocol Stat Exams 02/28/24 14:[address] stroke protocol Stat Exams 02/28/24 14:28 Completed EKG (ED Only) Stat Exams 02/28/24 14:28 Draft MR head/brain wo con Stat Exams 02/28/24 Taken CBC Stat Lab 02/28/24 15:43 Completed Comprehensive Metabolic Panel Stat Lab 02/28/24 16:12 Completed Drug Screen,Urine Stat Lab 02/28/24 16:55 Completed HCG Titer if Positive Stat Lab 02/28/24 16:12 Completed Magnesium Stat Lab 02/28/24 16:12 Completed Partial Thromboplastin Time Stat Lab 02/28/24 15:43 Completed Prothrombin Time with INR Stat Lab 02/28/24 15:43 Completed Troponin I Stat Lab 02/28/24 16:12 Completed Urinalysis Stat Lab 02/28/24 16:55 Completed Urine Culture Stat Lab 02/28/24 16:55 Received Ondansetron Inj [Zofran Inj] Med 02/28/24 14:28 Active 4 mg IV Q4HR PRN Oxygen Delivery NOW RT 02/28/24 14:28 Active Vital Signs Vital signs: Vital Signs Pulse Rate 79 02/28/24 14:28 Neuro Symptoms / Deficit MDM Narrative MDM Narrative:: Stroke alert was called for right hemiparesis and expressive aphasia. Soon after arrival. CT of the head came back with a questionable right basal ganglier area suspicious for possible blood or just artifactual change. This was discussed with the radiologist and also the teleneurologist and both of us feel this is artifact as patient has right sided hemiparesis and this would not correlate with the on the left side appears perfectly normal. Nonetheless CTA also came back negative. Because the patient was just here for stroke a month ago she was deemed not to be a tPA candidate for teleneurologist Dr. Rosa also the plan was discussed with our neurologist further workup and admission including MR but unfortunately we have no neurologist on-call today. Hospitalist came down and explained the circumstances even though it does not correlate with the symptoms and from there we will make a decision admit here or transfer. Patient has been calm with no complaints is actually had some significant improvement since arrival. Laboratory studies show a white count 9.7 hemoglobin of 12.7. PT/INR within normal limits sodium is little low at 125 potassium 3.4 BUN/creatinine is 6 and 0.5. Total bilirubin slightly elevated 1.3. Transaminases are within normal limits. Urinalysis is entirely negative. Urine drug seen came back negative test came back negative At 1821 hrs. the care will go to Dr. Irby the oncoming doctor and he will follow-up on MR and dispo the patient accordingly. MR is back at 1838 hrs. and a formal read is pending. Care to Dr. Bhatia mentioned above Note twelve-lead EKG was done soon after arrival with a rate of 75 sinus rhythm there is no ST elevation PA. [facility] (Formerly [facility]) [address] [place] [address] [facility] Report Signed Patient: DAMIAN ROBERTS. Record#: [id number] Birthdate: 1965 Age/Sex: 58 / F Location: [facility] Attending Dr: Ordering Physician: Bill Carrasquillo MD Date of Service: 02/28/24 Procedure(s): CT angio stroke protocol Accession Number(s): [id number] cc: Bill Carrasquillo MD; Chaka Hammond MD~ Examination: CTA carotids with intravenous contrast CTA brain, head with intravenous contrast. 2-D sagittal, coronal reconstructions. 3-D reconstructions. Exam date and time: February 28, 2024 1441 hours INDICATIONS: Stroke alert today, onset right-sided body weakness beginning 12 noon CTDI: vol (mGy) 22.2 DLP: (mGycm) 405 Technique: Multiple CTA axial brain, head carotid images post intravenous contrast injection 75 cc, [id number]. 2-D sagittal, coronal reconstructions. 3-D reconstructions, 3-D post processing including vascular maximum intensity projection images. Low dose protocols were performed. One or more of the following dose reduction techniques were used; automated exposure control, adjustment of the mA and/or KV according to patient size, use of iterative reconstruction technique. Findings: Multiple subcentimeter right thyroid nodules No significant common carotid carotid bifurcation or internal carotid artery stenoses Dominant left vertebral artery with no critical stenoses No cerebral large vessel arterial occlusions, thrombus, dissection or cerebral aneurysm IMPRESSION: No significant neck arterial stenoses Multiple subcentimeter right thyroid nodules No cerebral large vessel arterial occlusions, thrombus, dissection or cerebral aneurysm Patient data External records reviewed:: [facility] previous records (Reviewed last admission record from 01/31/24 through 02/04/24, patient admitted for the following: Generalized weakness, Fever, Recent cerebrovascular accident.) Clinical information provided by:: patient Social determinants that could affect healthcare access:: none Patient has the following chronic illnesses:: Hypertension, hyperlipidemia, CVA, migraines. How is presenting disease/condition affected by chronic disease/condition?: exacerbated by Evaluation data The following diagnostics were reviewed and interpreted by me:: lab results and radiology exam(s) Lab and/or radiology exams considered but not ordered:: none Interpretation Summary: See above under MDM narrative. RADIOLOGY Procedure(s): CT stroke protocol Accession Number(s): [id number] cc: Bill Carrasquillo MD; Chaka Hammond MD~ Examination: CT brain head without contrast. 2-D sagittal coronal reconstructions Date and time of exam:February 28, 2024 1430 hours INDICATIONS: Stroke alert, onset right-sided body weakness beginning 12 noon today COMPARISON: February 02, 2024 CTDI: vol (mGy):44 DLP: (mGycm):799 Technique: Multiple CT axial sections of the brain have been obtained, 5 mm slice thickness. Contrast has not been administered. 2-D sagittal, coronal reconstructions have been obtained Low dose protocols were performed. One or more of the following dose reduction techniques were used; automated exposure control, adjustment of the mA and/or KV according to patient size, use of iterative reconstruction technique. Findings: No significant ventricular enlargement. Subtle hyperdensity in the basal cisterns, for instance axial image 26 and 27 especially on the right side No mass effect or midline shift Basal cisterns are not remarkable. Fourth ventricle is midline. Cranial vault intact. Impression: Suspicious for subarachnoid hemorrhage basal cisterns, recommend short-term follow-up Recommend brain MRI MRA pre and post contrast follow-up Dictated By: Chaka Hammond MD Procedure(s): CT angio stroke protocol Accession Number(s): [id number] cc: Bill Carrasquillo MD; Chaka Hammond MD~ Examination: CTA carotids with intravenous contrast CTA brain, head with intravenous contrast. 2-D sagittal, coronal reconstructions. 3-D reconstructions. Exam date and time: February 28, 2024 1441 hours INDICATIONS: Stroke alert today, onset right-sided body weakness beginning 12 noon CTDI: vol (mGy) 22.2 DLP: (mGycm) 405 Technique: Multiple CTA axial brain, head carotid images post intravenous contrast injection 75 cc, [id number]. 2-D sagittal, coronal reconstructions. 3-D reconstructions, 3-D post processing including vascular maximum intensity projection images. Low dose protocols were performed. One or more of the following dose reduction techniques were used; automated exposure control, adjustment of the mA and/or KV according to patient size, use of iterative reconstruction technique. Findings: Multiple subcentimeter right thyroid nodules No significant common carotid carotid bifurcation or internal carotid artery stenoses Dominant left vertebral artery with no critical stenoses No cerebral large vessel arterial occlusions, thrombus, dissection or cerebral aneurysm IMPRESSION: No significant neck arterial stenoses Multiple subcentimeter right thyroid nodules No cerebral large vessel arterial occlusions, thrombus, dissection or cerebral aneurysm Dictated By: Chaka Hammond MD Medications / Prescriptions Medications or Prescriptions considered but not ordered:: none Medication administrations:: Medication Administration History Ondansetron HCl (Ondansetron Inj 2 Mg/Ml Inj 2 Ml) 4 mg IV Q4HR PRN PRN Reason: NAUSEA OR VOMITING Stop: 03/29/24 14:27 see above Consultations Consultation(s) initiated? (list below): Yes Diagnosis Neuro Differential Diagnosis: subarachnoid hemorrhage, cerebrovascular accident and transient cerebral ischemia Most likely diagnosis given after review of the tests above:: Right hemiparesis and aphasia secondary to CVA MRI is pending Admission Indicated Admission indicated?: indicated Admission Request Was there a request for admission?: Yes Admission Attestation Admission request attestation: Discussed case with [] from Hospitalist service regarding admission. Discussed patients ED course, exam findings, labs, and radiology results. The Hospitalist [agrees,declines] to accept the patient for admission. Disposition Plan Disposition Plan: Admit Critical Care Time Critical Care Time Critical Care Time: Yes Total Critical Care Time (min.): 50 Attestation: The high probability of sudden, clinically significant deterioration in the patient?s condition required the highest level of my preparedness to intervene urgently. The services I provided to this patient were to treat and/or prevent clinically significant deterioration. Services included the following: chart data review, reviewing nursing notes and/or old charts, documentation time, financial sales consultant collaboration regarding findings and treatment options, medication orders and management, direct patient care, vital sign assessments and ordering, interpreting and reviewing diagnostic studies and lab tests. Aggregate critical care time includes only time during which I was engaged in work directly related to the patient?s care, as described above, whether at bedside or elsewhere in the Emergency Department. It did not include time spent performing other reported procedures or the services of residents, students, nurses or physician assistants. Discharge Plan Plan Patient Disposition: Admit Acute Care w/in Hospital Disposition Comment: Hospitalist to admit Prescriptions/Referrals Prescriptions/Med Rec: No Action prochlorperazine maleate 5 mg tablet 5 mg PO 4XD PRN (Reason: Nausea And Vomiting) acetaminophen 500 mg tablet 500 mg PO Q8HR meclizine 25 mg tablet 25 mg PO Q12H PRN (Reason: Dizziness) duloxetine 30 mg capsule,delayed release(DR/EC) 30 mg PO QDAY Referrals: No Primary/Family,Physician [Primary Care Provider] - In 1 week Problem List Clinical Impression: Acute right hemiparesis, Aphasia, Hyponatremia Patient/Caregiver Discharge Instructions Print Language: Mongolian Stand Alone Forms: Patient Portal Info Letter
--- NOTE | 2024-02-28 15:03 | PC.NURSE ---
neurolgy dr rodriguez assessing patient
--- NOTE | 2024-02-28 15:50 | PC.NURSE ---
PATIENT IS NOT FOLLOWING COMMAND. IS AWAKE BUT APPEARS NOT TO UNDERSTAND WHAT IS BEING ASKED OF HER. SHE IS NONVERBAL. AT BEDSIDE STATES SHE WOKE UP THIS MORNING ABOUT 10AM, VERY WEAK. ASSISTED HER TO THE KITCHEN, SHE ATE A LITTLE. WAS TALKING BUT NOT CLEARLY. ABOUT AN HR LATER SHE NO LONGER WAS TALKING. SON CAME BY AND WHEN SAW HOW SHE WAS DECIDED SHE NEEDED TO COME TO THE HOSPITAL. SINCE SHE WAS NOT ABLE TO WALK THEY CALLED EMS. RT ARM FLACID, LEFT ARM WEAK BUT IS MOVING. RT LEG VERY WEAK BUT IS MOVING. LT LEG WEAK BUT ABLE TO LIFT. UNABLE TO DO STROKE EVAL DUE TO LACK OF COOPERATION AND UNDERSTANDING. PATIENT IS LOOKING AROUND AND RESTLESS.
[2024-02-28 15:55] LABS: Basophils # (Auto) 0.1 Thou/mm3 (0.0-0.2); Basophils % (Auto) 1 % (0-2.5); Eosinophils % (Auto) 0 % (0-10); Hemoglobin 12.7 g/dL (12.0-16.0); Immature Granulocytes % (Auto) 0 % (0-0); Immature Granulocytes Auto 0.02 Thou/mm3 (0.00-0.00); Lymphocytes # (Auto) 1.3 Thou/mm3 (1.0-4.8); Lymphocytes % (Auto) 13 % (10-50); Mean Corpuscular HGB Conc 35.3 g/dl (31.0-37.0); Mean Corpuscular Hemoglobin 31.6 pg (25.0-35.0); Mean Corpuscular Volume 90 fL (80-100); Monocytes # (Auto) 0.8 Thou/mm3 (0.0-0.8); Monocytes % (Auto) 9 % (0-12); Neutrophils # (Auto) 7.5 Thou/mm3 (1.8-7.7); Neutrophils % (Auto) 77 % (37-80); Nucleated Red Blood Cell % 0 /100 WBC (0); Platelet Count 275 Thou/mm3 (140-440); RDW Standard Deviation 42.7 fL (36.4-46.3); Red Blood Count 4.02 Miln/mm3 (4.00-5.20); White Blood Count 9.7 Thou/mm3 (3.6-11.0)
--- NOTE | 2024-02-28 16:01 | ESCONSULT_ITS ---
History of Present Illness Consult Narrative History of present illness: [facility] Patient Name:???Neda Youssef Date of :???1965 Identification Number:??? Date of Service:???02/28/2024 14:39:18 Diagnosis:?R47.01 - Aphasia ?M62.81 - Generalized Muscle Weakness Impression: ?Pt is a 58 yo F with HTN, HLP, frequent migraines with two recent admission on 01/20 for headaches and found to have a right cerebellar stroke on MRI brain and on 01-31-02/03 for fevers and nausea thought to be due to gastroenteritis who was brought in by EMS for aphasia and right sided weakness with a last known well since 10:00. CT Head and it showed a small area of subtle hyperdensity the basal cisterns on the right possibly representing SAH vs artifact. However, pt was also not a candidate for iv-thrombolytics due to her recent stroke last month and presenting outside the time window. CTA head and neck showed no obvious large vessel occlusion or aneurysm but will follow-up with the final results. Recommend additional work-up with MRI brain without contrast and inpatient neurology consult for additional recommendations (will defer to inpatient neurology on whether to transfer to additional work-up). Our recommendations are outlined below. Recommendations: ? Stroke/Telemetry Floor ? Neuro Checks ? Bedside Swallow Eval ? DVT Prophylaxis ? IV Fluids, Normal Saline ? Head of Bed 30 Degrees ? Euglycemia and Avoid Hyperthermia (PRN Acetaminophen) Sign Out: ? Discussed with Emergency Department Provider Advanced Imaging: CTA Head and Neck Completed. LVO:No Patient in not a candidate for NADINE Metrics: Last Known Well: 02/28/2024 10:00:00 Dispatch Time: 02/28/2024 14:39:18 Arrival Time: 02/28/2024 14:28:00 Initial Response Time: 02/28/2024 14:42:04Symptoms: RIght sided weakness and aphasia. . Initial patient interaction: 02/28/2024 14:55:04 NIHSS Assessment Completed: 02/28/2024 14:57:38Patient is not a candidate for Thrombolytic. Thrombolytic Medical Decision: 02/28/2024 14:57:40Patient was not deemed candidate for Thrombolytic because of following reasons: LKW outside 4.5 hr window. . Significant head trauma or stroke in previous 3 months . Current intracranial hemorrhage . CT head showed no acute hemorrhage or acute core infarct. I personally Reviewed the CT Head and it showed a small area of subtle hyperdensity the basal cisterns on the right possibly representing SAH. Primary Provider Notified of Diagnostic Impression and Management Plan on: 02/28/2024 15:37:49 History of Present Illness:Patient is a 58 year old Female. Patient was brought by EMS for symptoms of RIght sided weakness and aphasia. . Pt is a 58 yo F with HTN, HLP, frequent migraines with two recent admission on 01/20 for headaches and found to have a right cerebellar stroke on MRI brain and on 01-31-02/03 for fevers and nausea thought to be due to gastroenteritis who was brought in by EMS for aphasia and right sided weakness. Per pt's , pt normally walks with a walker but since around 10 AM this morning, she has had generalized weakness so that she has been able to walk He reports no unilateral weakness. Since about noon, she stopped speaking. EMS was called. She was noted to have a right facial droop and right arm weakness in the ED. Past Medical History: ?Hypertension ?Migraine Headaches Medications: No Anticoagulant use? Antiplatelet use:?Yes?ASA 81 mg angie and Plavix 75 mg daily Reviewed EMR for current medications Allergies:? NKDA Social History: Smoking: No Family History: There is no family history of premature cerebrovascular disease pertinent to this consultation ROS : 14 Points Review of Systems was performed and was negative except mentioned in HPI. Past Surgical History: There Is No Surgical History Contributory To Today?s Visit Examination: BP(112/84),?Pulse(75),?Blood Glucose(123) 1A: Level of Consciousness - Alert; keenly responsive?+ 0 1B: Ask Month and Age - Aphasic?+ 2 1C: Blink Eyes & Squeeze Hands - Performs Both Tasks?+ 0 2: Test Horizontal Extraocular Movements - Normal?+ 0 3: Test Visual Hodges - No Visual Loss?+ 0 4: Test Facial Palsy (Use Grimace if Obtunded) - Minor paralysis (flat nasolabial fold, smile asymmetry)?+ 1 5A: Test Left Arm Motor Drift - Drift, but doesn't hit bed?+ 1 5B: Test Right Arm Motor Drift - Drift, but doesn't hit bed?+ 1 6A: Test Left Leg Motor Drift - No Effort Against [place]?+ 3 6B: Test Right Leg Motor Drift - No Effort Against [place]?+ 3 7: Test Limb Ataxia (FNF/Heel-[place]) - No Ataxia?+ 0 8: Test Sensation - Normal; No sensory loss?+ 0 9: Test Language/Aphasia - Mute/Global Aphasia: No Usable Speech/Auditory Comprehension?+ 3 10: Test Dysarthria - Mild-Moderate Dysarthria: Slurring but can be understood?+ 1 11: Test Extinction/Inattention - No abnormality?+ 0 NIHSS Score:?15 NIHSS Free Text :?Pt non-verbal but will follow some simple commands. Can lift both arms up against gravity but with a drift in both arms. Will not lift either leg against gravity but moves both legs although her right leg she seems to withdraw less to noxious stimuli. She has blink to treat bilaterally. Pre-Morbid Modified Patricia Scale:3 Points = Moderate disability; requiring some help, but able to walk without assistance Spoke with :?Dr. Reggie Carrasquillo This consult was conducted in real time using interactive audio and video technology. Patient was informed of the technology being used for this visit and agreed to proceed. Patient located in hospital and provider located at home/office setting. Patient is being evaluated for possible acute neurologic impairment and high probability of imminent or life-threatening deterioration. I spent total of 55 minutes providing care to this patient, including time for face to face visit via telemedicine, review of medical records, imaging studies and discussion of findings with providers, the patient and/or family. Dr Anu Rosa [facility] For Inpatient follow-up with [facility] physician please call [facility] at . As we are not an outpatient service for any post hospital discharge needs please contact the hospital for assistance. If you have any questions for the [facility] physicians or need to reconsult for clinical or diagnostic changes please contact us via [facility] at . cc:: cc: Meds Home Medications and Allergies Home Medications ?Medication ?Instructions ?Recorded ?Confirmed ?Type acetaminophen 500 mg tablet 500 mg PO Q8HR 02/01/24 02/01/24 History duloxetine 30 mg capsule,delayed 30 mg PO QDAY 02/01/24 02/01/24 History release meclizine 25 mg tablet 25 mg PO Q12H PRN Dizziness 02/01/24 02/01/24 History prochlorperazine maleate 5 mg 5 mg PO 4XD PRN Nausea And Vomiting 02/01/24 02/01/24 History tablet Allergies Allergy/AdvReac Type Severity Reaction Status Date / Time No Known Allergies Allergy Verified 02/03/24 18:57 Exam - Neurology Vital Signs Temp Pulse Resp BP Pulse Ox O2 Del Method 98.5 F 84 17 120/65 98 Room Air 02/28/24 15:16 02/28/24 15:16 02/28/24 15:16 02/28/24 15:16 02/28/24 15:16 02/28/24 15:16 Results Labs 02/28/24 15:43 02/28/24 16:12
[2024-02-28 17:01] LABS: INR 1.1 (0.9-1.3); Partial Thromboplastin Time 23.6 Seconds (22.0-36.0); Prothrombin Time 11.5 Seconds (9.0-12.2)
[2024-02-28 17:04] LABS: Collection Type, Urine Catheter; Squamous Epithelial Cell,Urine 0 /hpf (0-5)
[2024-02-28 17:12] LABS: Alanine Aminotransferase 15 U/L (10-49); Albumin/Globulin Ratio 1.2 (1.2-2.2); Alkaline Phosphatase 82 U/L (46-116); Anion Gap 6 (7-16); Aspartate Amino Transferase 15 U/L (0-34); BUN/Creatinine Ratio 12 Ratio (12-20); Bilirubin,Total 1.3 mg/dL (0.3-1.2); Blood Urea Nitrogen 6 mg/dL (9-23); Calcium 9.9 mg/dL (8.3-10.6); Calcium (Corrected) 9.9 mg/dL (8.5-10.1); Carbon Dioxide 26.2 mMol/L (20.0-31.0); Chloride 93 mMol/L (98-107); Creatinine (Component) 0.5 mg/dL (0.6-1.3); Estimated Creatinine Clearance 112.2 mL/min (>60); Globulin 3.3 gm/dL (2.3-3.5); Glucose 116 mg/dL (74-106); HCG Titer if Positive Negative; Magnesium 1.8 mg/dL (1.6-2.6); Osmolality,Calculated 250 (275-295); Potassium 3.4 mMol/L (3.4-5.1); Sodium 125 mMol/L (136-145); Total Protein 7.3 gm/dL (5.7-8.2); Troponin I < 0.020 ng/mL (0.0-0.045); eGFR > 60 See Note
[2024-02-28 17:23] LABS: Amorphous Crystals,Urine Present (Absent); Bilirubin,Urine Negative (Negative); Blood,Urine Negative (Negative); Calcium Oxalate Crystals,Urine 1+; Clarity,Urine Clear (Clear/Hazy); Color,Urine Lt-Yellow (Lt Yel-Yel); Glucose, Urine Negative (Negative); Ketones,Urine Negative (Negative); Leukocyte Esterase,Urine Negative (Negative); Nitrite,Urine Negative (Negative); Protein,Urine Negative (Neg - Trace); RBC,Urine 1 /hpf (0-3); Specific Gravity,Urine 1.014 (1.001-1.035); Urobilinogen,Urine Negative mg/dL (0.0-1.0); WBC,Urine 2 /hpf (0-5)
[2024-02-28 17:25] LABS: Amphetamine/Methamp Scrn,U Negative (Negative); Barbiturate Screen,Urine Negative (Negative); Benzodiazepines Screen,Urine Negative (Negative); Benzoylecgonine Screen, Ur Negative (Negative); Fentanyl Screen,Urine Negative (Negative); Opiate Screen,Urine Negative (Negative); THC Screen,Urine Negative (Negative)
--- NOTE | 2024-02-28 19:01 | PD.EDADDENDU ---
Emergency Room Addendum Addendum Narrative: 1800: Care assumed from Bill Werner, the previous shift emergency physician. Past medical, surgical, social and family history reviewed. Vitals and home medications reviewed. I will assume the care of the patient at this time, pending MRI results and final disposition. Please refer to the emergency department record for history and examination from initial visit. Physical exam by me shows patient under no acute distress at this time. 192: Dr. Joshi, hospitalist, made aware of the patient?s HPI, PMHx, lab and/or radiology results. Treatment plan was discussed. Will admit for further evaluation and management. Accepts patient for admission.
--- NOTE | 2024-02-28 19:26 | PC.NURSE ---
1530 PATIENT AWAKE AND ALERT. NO SIGNS OR SYMPTOMS OF DISCOMFORT OBSERVED
--- NOTE | 2024-02-28 19:35 | PC.NURSE ---
DR. RODRÍGUEZ NOTIFIED OF FAILED SWALLOW EVAL. DR. RODRÍGUEZ AT BEDSIDE.
--- NOTE | 2024-02-28 20:46 | PC.NURSE ---
DAUGHTER GIANFRANCO BALDERASZ, DECISION MAKER FOR PATIENT, AT BEDSIDE AND VERBALIZES UNDERSTANDING OF LUMBAR PUNCTURE PROCEDURE AND NO QUESTIONS, CONSENT SIGNED AT THIS TIME.
[2024-02-28] MEDS: SODIUM CHLORIDE 0.9% 1000 ML 1,000 ML 75 ML IV (22:08)
--- NOTE | 2024-02-28 22:10 | ESHP_ITS ---
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 Given patient's clinical status, daughter at bedside provided history. Father called daughter stating that patient was weak to get out of bed, then son went to see patient at 10 a.m. and patient was not responding to questions. EMS was called and patient was then brought to the ED. In ED, patient was noted to have right-sided hemiparesis, right-sided facial droop, and aphasia so stroke alert was called. Initial CT head showed concern for possible SAH versus artifact. However, patient not candidate for thrombolytics given recent stroke within last month and outside of window. Of note, patient discharged 02/03 after being admitted for gastroenteritis, found to have elevated CA 125, and was told to follow-up with Dr. Wetzel outpatient but had not been able to due to insurance issues. ED course: Vitals stable ESR 31, Na 125, awesome to 50, UA unremarkable, U tox negative CTA head/neck: No LVO, multiple subcentimeter thyroid nodules CT head: SAH versus artifact MRI brain: No hemorrhage seen, no evidence of ischemia, increased white matter signal progressed since 01/21/2024 (demyelinating pattern) Status-post lumbar puncture, CSF clear upon gross inspection PMHx: HTN, HLD, fibromyalgia, CVA, migraine Medications: Statin, lisinopril, aspirin 81, prochlorperazine, meclizine, clopidogrel, duloxetine FHx: Stroke and [place] in mother, unknown cancer in father SHx: 8 year history of 1 pack of cigarettes per week; no alcohol or illicit drug use Review of Systems Review of Systems ROS Unobtainable: unobtainable due to medical condition Exam Vital Signs Temp Pulse Resp BP Pulse Ox O2 Del Method 98.2 F 68 17 132/66 H 97 Room Air 02/28/24 16:12 02/28/24 22:06 02/28/24 22:06 02/28/24 22:06 02/28/24 22:06 02/28/24 22:06 Narrative Exam General: Aphasic, alert, follow some commands, in no acute distress. HEENT: NC/AT, mucous membranes moist, bilateral sclera anicteric. Cardiovascular: Regular rate and rhythm, S1/S2 present, no murmurs appreciated. Pulmonary: Clear to auscultation bilaterally, no rales/rhonchi/wheezes. Abdominal: Soft, non-tender, non-distended, no rebound/guarding, normal bowel sounds present. Musculoskeletal: Normal ROM, no peripheral edema. Skin: Warm and dry, intact, no rashes. Neuro: -Difficult to ascertain CN exam given patient's inability to follow some commands -CN 3, 4, 6, 9, 10, 11, 12: unable to assess -CN 7: right-sided facial muscle weakness -2/5 strength LUE, 0/5 strength RUE -2/5 strength LLE, 1/5 strength in RLE Results: Labs 02/28/24 15:43 02/28/24 16:12 Labs: Short CBC 02/28/24 Range/Units 15:43 WBC 9.7 (3.6-11.0) Thou/mm3 Hgb 12.7 (12.0-16.0) g/dL Hct 36.0 (36.0-46.0) % Plt Count 275 (140-440) Thou/mm3 BMP 02/28/24 16:12 Sodium 125 L Potassium 3.4 Chloride 93 L Carbon Dioxide 26.2 BUN 6 L Creatinine 0.5 L Glucose 116 H Calcium 9.9 Cardiac Enzymes 02/28/24 Range/Units 16:12 Troponin I < 0.020 (0.0-0.045) ng/mL Liver Function 02/28/24 Range/Units 16:12 Total Bilirubin 1.3 H (0.3-1.2) mg/dL AST 15 (0-34) U/L ALT 15 (10-49) U/L Alkaline Phosphatase 82 (46-116) U/L Albumin 4.0 (3.5-5.0) gm/dL Urine 02/28/24 Range/Units 16:55 Urine Color Lt-Yellow (Lt Yel-Yel) Urine Clarity Clear (Clear/Hazy) Urine pH 7.0 (5.0-7.0) Ur Specific [place] 1.014 (1.001-1.035) Urine Protein Negative (Neg - Trace) Urine Glucose (UA) Negative (Negative) Quality Measures Quality Measures none Medications Home Medications and Allergies Home Medications ?Medication ?Instructions ?Recorded ?Confirmed ?Type acetaminophen 500 mg tablet 500 mg PO Q8HR 02/01/24 02/01/24 History duloxetine 30 mg capsule,delayed 30 mg PO QDAY 02/01/24 02/01/24 History release meclizine 25 mg tablet 25 mg PO Q12H PRN Dizziness 02/01/24 02/01/24 History prochlorperazine maleate 5 mg 5 mg PO 4XD PRN Nausea And Vomiting 02/01/24 02/01/24 History tablet Allergies Allergy/AdvReac Type Severity Reaction Status Date / Time No Known Allergies Allergy Verified 02/03/24 18:57 Visit Medications Enoxaparin Sodium (Enoxaparin Sod Inj 40 Mg/0.4 Ml Syringe) 40 mg SC QDAY [facility] Stop: 03/14/24 08:59 Sodium Chloride (Ns) 1,000 mls @ 75 mls/hr IV .[id number] ROGER Stop: 02/29/24 10:04 Last Admin: 02/28/24 22:08 Dose: 75 mls/hr Ondansetron HCl (Ondansetron Inj 2 Mg/Ml Inj 2 Ml) 4 mg IV Q4HR PRN PRN Reason: NAUSEA OR VOMITING Stop: 03/29/24 14:27 Assessment & Plan Plan Neda Sauceda is a 58-year-old female with a past medical history of hypertension, hyperlipidemia, fibromyalgia, migraines, and 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 Guillain-[place]) vs meningitis. #Focal neurological deficits, right-sided, secondary to #CVA vs peripheral neuropathy vs meningitis #History of CVA 01/20 Upon arrival to ED, noted to have right-sided deficits. Has history of CVA in right cerebellar hemisphere. S/p lumbar puncture in ED. Overall, imaging does not show evidence of hemorrhage or ischemia. However, MRI does show progressed white matter signal since 01/20. ? Teleneurology consulted ? Neurochecks q4h ? Bedside swallow eval ? DVT prophylaxis ? Head of bed 30 degrees ? Euglycemia and avoid hyperthermia ? In-house neurology consulted ? N.p.o. ? Follow-up CSF analysis #Hypertension #Hyperlipidemia #Fibromyalgia #Migraines Pending med rec and swallow evaluation Hospital management: Disposition: 2-3 hospital nights Fluids: 1 L NS @ 75 mL/hr Diet: NPO, pending swallow eval Lines: Peripheral DVT prophylaxis: Enoxaparin SC CODE STATUS: Full code ----- Plan discussed with attending physician Dr. Adi Johnson MD PGY-1 Internal Medicine Attending Provider Attestation/Addendum Pt was evaluated and plan formulated together with the housestaff team. I have reviewed the residents note above and agree with most of its content. Please refer to the residents note for additional details. A 58-year-old female presented to the ER with a stroke alert. According to her family, she was in her usual state of health in the morning; however, around noon, she became unable to speak and exhibited right-sided weakness and a right facial droop. Due to these symptoms, she was brought in by ambulance. The patient was evaluated by teleneurology. A CT scan showed findings suspicious for subarachnoid hemorrhage in the basal cisterns. MRI findings did not reveal any areas of acute hemorrhage; however, there was an increased white matter signal with prominent punctate foci in the white matter, showing progression compared to imaging from January 21, 2024. These findings are consistent with a demyelinating disease pattern. On examination, the patient displayed aphasia but was able to follow commands. There was an obvious right facial droop when asked to smile. No movement was observed in the right arm, and the right leg was unable to move against gravity. Given her recent history of gastroenteritis, a lumbar puncture was performed. The study showed WBC 72, glucose 27, and protein 179. Meningitis cannot be ruled out, so treatment with antibiotics and acyclovir has been initiated. The patient will be admitted for further management.
--- NOTE | 2024-02-28 22:10 | PD.RESPROC ---
Procedures Procedure Date / Time 02/28/24 9:30 PM Lumbar Puncture Indication(s): Assessment for meningitis vs Guillain-[place] Informed consent obtained: obtained from surrogate decision maker Time out done, and the following verified: correct patient, side and site, procedure, patient position and implants and/or equipment Patient position: left lateral decubitus Skin prep: Povidone-Iodine 1% Local anesthetic used: Lidocaine 1% Amount of anesthesia used (mL): 15 Interspace used: L4-L5 Fluid initially obtained: other (Traumatic tap) EBL(ml): 0 Complications: none Additional comments: Procedure was done under direct supervision of Dr. Gross, emergency department physician.
[2024-02-28 22:25] LABS: Sed Rate (ESR) 31 mm/hr (0-30)
[2024-02-28 22:38] LABS: Free T4 (Free Thyroxine) 1.15 ng/dL (0.89-1.76); Thyroid Stimulating Hormone 1.63 uIU/mL (0.55-4.78)
[2024-02-28 22:41] LABS: Protein Total,CSF 179 mg/dL (8-32)
[2024-02-28 23:03] LABS: CSF Cell Count Tube # Tube #3; CSF Color Colorless (Colorless)
[2024-02-28 23:04] LABS: CSF, Appearance Clear (Clear)
[2024-02-28 23:05] LABS: CSF Red Blood Cell 23 /cmm
[2024-02-28 23:10] LABS: CSF Mononuclear 5 %; CSF Polynuclear WBC 95 %
[2024-02-28 23:15] LABS: CSF White Blood Cell 72 /cmm
[2024-02-28 23:16] LABS: Glucose,CSF 27 mg/dL (40-70)
[2024-02-28 23:31] LABS: CSF Gram Stain Alert Gram Stain Completed
[2024-02-29] VITALS (8 sets, daily range): BP systolic 131–145; BP diastolic 79–84; PULSE 65–100; RESP 11–99; TEMP 35.5–36.4; O2SAT 96–100; BMI 22.1
--- NOTE | 2024-02-29 | XR_ITS ---
Examination: MR venogram without intravenous contrast 2-D sagittal and axial reconstructions Exam date and time: February 29, 2024 1419 hours INDICATIONS: Right-sided hemiparesis right facial droop, unable to speak today, prominent foci increased signal in the white matter on brain MRI without contrast February 28, 2024 TECHNIQUE AND FINDINGS: Patient moved continuously throughout the exam severely degrading scan image quality Transverse sinuses and internal jugular veins are patent There is partial filling of sagittal sinus which is grossly open as well as internal cerebral vein IMPRESSION: Study is severely degraded secondary to continual patient motion Consider MRA MRV post intravenous contrast follow-up
--- NOTE | 2024-02-29 | XR_ITS ---
Examination: MRI of brain without intravenous contrast. MRI brain with intravenous contrast. Date and time of exam:February 29, 2024 1454 hours Comparison February 28, 2024 INDICATIONS: Aphasia right-sided body weakness since yesterday Technique: Multiple axial and sagittal images of the brain to been obtained. Siemens high-resolution 1.52 Slime short bore scanner utilized. Sagittal sections, T1 weighted images, TR 500, TE 14, are performed. Axial sections proton-density and T2-weighted images have been obtained. Inversion recovery axial images, TR 9260, TE 111, TR 2500. Diffusion weighted images, axial sections, TR 4800, TE 128, B value 1000. Axial sections, ADC map, TR 4800, TE 128. Axial and coronal images were also obtained post 11 cc gadolinium administered intravenously. Findings:: Enlargement of the sella turcica is not present. The optic chiasm and infundibular stalk are not remarkable. There is no localized enlargement of the medulla or awilda. Fourth ventricle and cerebellar tonsils appear normal in position. No subacute area of hemorrhage density is seen. Fourth ventricle is midline. Mass in the cerebellopontine angle region is not evident. 7th and 8th nerve complexes exhibit symmetry Globes are symmetrical Orbital musculature including medial lateral rectus muscles do not exhibit abnormality Increased white matter signal is very prominent Effacement of the cortical sulcal markings is not identified. Mass effect upon the ventricular system is not identified. Diffusion-weighted images demonstrate 17 mm focus restricted diffusion left basal ganglia with signal deficit on the ADC map Contrast images demonstrate no abnormal cerebellar or cerebral enhancement Impression: 17 mm acute infarct left basal ganglia Prominent white matter change again noted
[2024-02-29 00:34] LABS: Ag, Group B Strep Negative (Negative); Ag, H Influenza B Negative (Negative); Ag, N Mening B/Ecoli K1 Negative (Negative); Ag, N Meningitidis ACY W135 Negative (Negative); Ag, Strep Pneumonia Negative (Negative)
[2024-02-29] MEDS: Ampicillin Inj 2,000 MG in SODIUM CHLORIDE 0.9% (P) 100 ML 100 MG IV ×7 (00:59→21:36)
[2024-02-29] MEDS: cefTRIAXone 2 GM in SODIUM CHLORIDE 0.9% (P) 50 ML IV ×3 (00:59→20:37)
[2024-02-29] MEDS: DEXAMETHASONE SOD PHOS INJ 10 MG/ML VIAL IV ×2 (01:00→06:08)
[2024-02-29 01:23] LABS: C-Reactive Protein < 0.4 mg/dL (0.0-0.9)
[2024-02-29 01:34] LABS: Folate 11.29 ng/mL (>5.38); Vitamin B12 551 pg/mL (211-911)
[2024-02-29] MEDS: ACYCLOVIR 1000 MG IV (01:48)
[2024-02-29] MEDS: VANCOMYCIN/NS 1 GM IVPB 200 ML IV ×3 (01:50→13:34)
--- NOTE | 2024-02-29 03:15 | PC.NURSE ---
scheduled [facility] downtime 02/29/24 at 0200 to 0309.
[2024-02-29 06:17] LABS: Basophils % (Auto) 0 % (0-2.5); Eosinophils % (Auto) 0 % (0-10); Hematocrit 37.8 % (36.0-46.0); Hemoglobin 13.4 g/dL (12.0-16.0); Immature Granulocytes % (Auto) 0 % (0-0); Immature Granulocytes Auto 0.02 Thou/mm3 (0.00-0.00); Lymphocytes # (Auto) 0.5 Thou/mm3 (1.0-4.8); Lymphocytes % (Auto) 7 % (10-50); Mean Corpuscular HGB Conc 35.4 g/dl (31.0-37.0); Mean Corpuscular Hemoglobin 31.7 pg (25.0-35.0); Mean Corpuscular Volume 89 fL (80-100); Monocytes # (Auto) 0.1 Thou/mm3 (0.0-0.8); Monocytes % (Auto) 1 % (0-12); Neutrophils # (Auto) 6.8 Thou/mm3 (1.8-7.7); Neutrophils % (Auto) 91 % (37-80); Nucleated Red Blood Cell % 0 /100 WBC (0); Platelet Count 293 Thou/mm3 (140-440); RDW Standard Deviation 42.4 fL (36.4-46.3); Red Blood Count 4.23 Miln/mm3 (4.00-5.20); White Blood Count 7.5 Thou/mm3 (3.6-11.0)
[2024-02-29 06:43] LABS: Anion Gap 3 (7-16); BUN/Creatinine Ratio 13 Ratio (12-20); Blood Urea Nitrogen < 5 mg/dL (9-23); Calcium 9.6 mg/dL (8.3-10.6); Carbon Dioxide 27.8 mMol/L (20.0-31.0); Chloride 98 mMol/L (98-107); Creatinine (Component) 0.4 mg/dL (0.6-1.3); Estimated Creatinine Clearance 125.3 mL/min (>60); Glucose 115 mg/dL (74-106); Osmolality,Calculated 257 (275-295); Potassium 3.3 mMol/L (3.4-5.1); Sodium 129 mMol/L (136-145); eGFR > 60 See Note
[2024-02-29] MEDS: POTASSIUM CHL 10 mEq IVPB 10 MEQ/100 ML BAG 100 MEQ IV ×4 (09:07→12:33)
[2024-02-29] MEDS: Magnesium Sulfate 2 GM Ivpb 2 GM/50 ML BAG IV (09:07)
[2024-02-29] MEDS: ENOXAPARIN SOD INJ 40 MG/0.4 ML SYRINGE SC (09:18)
[2024-02-29 09:28] LABS: Coccid Serology, CF CSF (UCD)* See Sep Rpt
[2024-02-29] MEDS: SODIUM CHLORIDE 0.9% IV ×3 (09:48→21:37)
[2024-02-29] MEDS: ACYCLOVIR IV ×3 (09:48→21:37)
[2024-02-29] MEDS: FLUCONAZOLE/NS 400 MG IVPB 800 MG/400 ML BAG 100 MG IV (10:49)
--- NOTE | 2024-02-29 11:26 | PCS.ST ---
Swallow Evaluation completed. See report for detail. Recommend Dysphagia 1/Regular liquid diet. ST will follow for speech/language evaluation and swallow safety.
--- NOTE | 2024-02-29 11:27 | ESPR_ITS ---
Tele Neuro Progress Note Progress Note Date 02/29/24 Most Recent Vital Signs Last Vital Signs Temp 97.2 F 02/29/24 08:00 Pulse 65 02/29/24 10:51 Resp 18 02/29/24 10:51 BP 145/80 H 02/29/24 08:00 Pulse Ox 99 02/29/24 08:00 O2 Del Method Room Air 02/29/24 08:00 Laboratory-Coagulation Panel PT 11.5 Seconds (9.0-12.2) 02/28/24 15:43 INR 1.1 (0.9-1.3) 02/28/24 15:43 APTT 23.6 Seconds (22.0-36.0) D 02/28/24 15:43 Progress Note Narrative [facility] TeleNeurology Consult Services Routine Consult Follow-Up Patient Name:???Neda Youssef Date of :???1965 Identification Number:??? Date of Service:???02/29/2024 11:11:36 Diagnosis?R47.01 - Aphasia ?M62.81 - Generalized Muscle Weakness ?G93.49 - Encephalopathy Multifactorial Impression Pt is a 58 yo F with HTN, HLP, frequent migraines with two recent admission on 01/20 for headaches and found to have a right cerebellar stroke on MRI brain and on 01-31-02/03 for fevers and nausea thought to be due to gastroenteritis who was brought in by EMS for aphasia and right sided weakness with a last known well since 10:00. CT Head and it showed a small area of subtle hyperdensity the basal cisterns on the right possibly representing SAH vs artifact. However, pt was also not a candidate for iv-thrombolytics due to her recent stroke last month and presenting outside the time window. CTA head and neck showed no obvious large vessel occlusion or aneurysm. MRI without acute findings; prominant white matter disease vs demyelinating. Concern for fungal Plan: -CT head, CTA reviewed, non acute -MRI Brain w/o contrast without acute findings -MRI Brain w/ contrast, MRV ordered -Routine EEG to be considered -No indication for AED regimen at this time -Check TSH, NH3, B12, folate, B6 levels -Nutrition and supplementation per primary team -Correction of underlying metabolic, infectious, hematologic derangements per primary team -Avoid polypharmacy to the best of our abilities, to allow for best neurologic examination -Encourage early PT/OT intervention and management -LP recommended, CSF studies ordered for further eval -Consider ID eval; antibiotics, antifungal, antiviral per primary team Neurology will follow. Discussed with staff. Our recommendations are outlined below Diagnostic Studies :Lumbar puncture to be done under fluoroscopy Laboratory Studies :Check B12/folateTSHAmmoniaCMPCBC with diffblood cultures x 2ESR/CRPHIVCOVID testCSF Cell count with diff, protein, glucose, gram stain, culture, HSV PCR, VDRL, save sample for additional testing Medications :Thiamine 500mg TID X 2 days then 250mg IV daily for 5 days then 10 0mg daily POFolic acid Nursing Recommendations :Delirium precautions: Blinds open during the day, closed at night, frequent reorientation, minimize nighttime interruptionsWhen possible avoid benzodiazepines, opioid pain medications, and anticholinergic medications Consultations :Toxic metabolic work up per primary teamID consultation for assistance with management if available DVT Prophylaxis :Choice of Primary Team Disposition :Neurology will follow Subjective Patient seen this afternoon. daughter at bedside. No major changes thus far. ? Examination 1A: Level of Consciousness - Alert; keenly responsive?+ 0 1B: Ask Month and Age - Aphasic?+ 2 1C: Blink Eyes & Squeeze Hands - Performs Both Tasks?+ 0 2: Test Horizontal Extraocular Movements - Normal?+ 0 3: Test Visual Hod[place] - No Visual Loss?+ 0 4: Test Facial Palsy (Use Grimace if Obtunded) - Partial paralysis (lower face)? + 2 5A: Test Left Arm Motor Drift - Drift, but doesn't hit bed?+ 1 5B: Test Right Arm Motor Drift - No Effort Against [place]?+ 3 6A: Test Left Leg Motor Drift - Some Effort Against [place]?+ 2 6B: Test Right Leg Motor Drift - No Effort Against Clair[place]?+ 3 7: Test Limb Ataxia (FNF/Heel-[place]) - Does Not Understand?+ 0 8: Test Sensation - Normal; No sensory loss?+ 0 9: Test Language/Aphasia - Mute/Global Aphasia: No Usable Speech/Auditory Comprehension?+ 3 10: Test Dysarthria - Mild-Moderate Dysarthria: Slurring but can be understood?+ 1 11: Test Extinction/Inattention - No abnormality?+ 0 NIHSS Score:?17 ? This consult was conducted in real time using interactive audio and video technology. Patient was informed of the technology being used for this visit and agreed to proceed. Patient located in hospital and provider located at home/office setting. Telehealth Neurology consultation was provided. I spent 35 minutes providing telehealth care. This includes time spent for face to face visit via telemedicine, review of medical records, imaging studies and discussion of findings with providers, the patient and/or family. Dr Francis Romero [facility] For Inpatient follow-up with [facility] physician please call [facility] at . As we are not an outpatient service for any post hospital discharge needs please contact the hospital for assistance. If you have any questions for the [facility] physicians or need to reconsult for clinical or diagnostic changes please contact us via [facility] at ?
[2024-02-29 11:53] LABS: HIV (1&2) Antibody Rapid Non-Reactive
--- NOTE | 2024-02-29 13:30 | ESPR_ITS ---
<Statement entered by Lois Santiago MD - 03/01/24 15:22> Patient seen and examined at bedside. Patient appears to still have severe weakness on right side including right facial droop and aphasia. Patient is able to understand the conversation, and gave a thumbs up with her left hand. Patient's CSF results significant for elevated protein and low glucose, highly suspicious for viral or fungal meningitis, and was positive for Cocci IgM and IgG serum on 02/15/24. Patient also had and EGD with biopsy results positive for H.Pylori during last hospitalization, however, family is unaware if treatment was ever started. Will hold off on treating the infection until patient is able to resume PO intake. D/t MRI being inconclusive, tele neuro recommended repeat MRI but with contrast and MRV. I discussed with and supervised the customer success intern physician who took care of this patient. I personally saw and examined the patient and discussed the assessment and plan with the entire medicine team, including my attending , I agree with most of the assessment and plan as documented below. Lois Santiago M.D. PGY-2 Documentation for date of: 02/29/24 Subjective Subjective Interval history: 02/29/2024: No acute overnight events to report. Patient seen and examined in hospital bed with and daughter at bedside. Patient was difficult to arouse; however, eventually she woke up. Patient is nonverbal at this time but is able to track with his eyes and seems to understand questioning by giving a thumbs up sign. There is definite right-sided facial drooping noted when patient is asked to smile or opening her mouth. Teleneurology was consulted and the recommendation was to repeat MRI with contrast along with MRV. Telemetry neurology also recommends with discontinuing some of the empiric medications but to follow-up with ID which has also been consulted. Infectious disease recommends on discontinuing vancomycin to continue the other medications at this time. 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 Exam Vital Signs Temp Pulse Resp BP Pulse Ox O2 Del Method 96 F L 87 20 139/84 H 100 Room Air 02/29/24 12:00 02/29/24 12:00 02/29/24 12:00 02/29/24 12:00 02/29/24 12:00 02/29/24 12:00 Narrative Exam Physical Exam: GENERAL: Awake, nonverbal, right-sided facial droop, appears stated age HEENT: NC/AT. Moist mucosa. PERRLA/EOMI. CARDIO: Heart RRR, no obvious murmurs, no JVD. PULM: No coughing or visible SOB. Lungs CTA B/L. GI: Abdomen soft, NT/ND, +BS. SKIN/MSK/EXT: No wounds/discoloration/rashes/edema/amputations noted. +Pedal pulses present B/L. NEURO: Nonverbal at this time, eyes tracking, gives thumb-up sign when prompted, GCS 10 E(4) V(1) M(5) Objective Labs 03/01/24 05:04 03/01/24 05:04 Labs: Laboratory Results - last 24 hr 02/28/24 02/28/24 02/28/24 15:43 16:12 16:55 WBC 9.7 RBC 4.02 Hgb 12.7 Hct 36.0 MCV 90 MCH 31.6 MCHC 35.3 RDW Std Deviation 42.7 Plt Count 275 Neut % (Auto) 77 Lymph % (Auto) 13 [place] % (Auto) 9 Eos % (Auto) 0 Baso % (Auto) 1 Neut # (Auto) 7.5 Lymph # (Auto) 1.3 [place] # (Auto) 0.8 Eos # (Auto) 0.0 Baso # (Auto) 0.1 Immature Gran # (Auto) 0.02 H Absolute Nucleated RBC 0.00 Immature Gran % 0 Nucleated RBC % 0 ESR Cancelled PT 11.5 INR 1.1 APTT 23.6 D Sodium 125 L Potassium 3.4 Chloride 93 L Carbon Dioxide 26.2 Anion Gap 6 L BUN 6 L Creatinine 0.5 L Estim Creat Clear Calc 112.2 eGFR > 60 BUN/Creatinine Ratio 12 Glucose 116 H Calculated Osmolality 250 L Calcium 9.9 Corrected Calcium 9.9 Magnesium 1.8 Total Bilirubin 1.3 H AST 15 ALT 15 Alkaline Phosphatase 82 Troponin I < 0.020 C-Reactive Prot, Quant < 0.4 Total Protein 7.3 Albumin 4.0 Globulin 3.3 Albumin/Globulin Ratio 1.2 Vitamin B12 551 Folate 11.29 TSH 1.63 Free T4 1.15 Ur Collection Type Catheter Urine Color Lt-Yellow Urine Clarity Clear Urine pH 7.0 Ur Specific [place] 1.014 Urine Protein Negative Urine Glucose (UA) Negative Urine Ketones Negative Urine Blood Negative Urine Nitrite Negative Urine Bilirubin Negative Urine Urobilinogen (Auto) Negative Ur Leukocyte Esterase Negative Urine RBC 1 Urine WBC 2 Ur Squamous Epith Cells 0 Calcium Oxalate Crystal 1+ A Amorphous Crystals Present A Urine Bacteria None CSF Source CSF Appearance CSF Color CSF WBC CSF RBC CSF Cell Count Tube # CSF Mononuclear WBCs CSF Polynuclear WBCs CSF Glucose CSF Total Protein CSF VDRL CSF Enterovirus RNA Qual CSF H.influenzae B Ag CSF Herpes I DNA (PCR) CSF Herpes II DNA (PCR) CSF N.meningit ACY/W135 CSF N.mening B/E.coli K1 CSF Strep B Antigen CSF Strep pneumoniae Ag CSF [place] IgG Ab CSF [place] IgM Ab Urine Opiates Screen Negative Urine Fentanyl Screen Negative Ur Barbiturates Screen Negative U Amphetamin/Meth Scrn Negative U Benzodiazepines Scrn Negative U Cocaine Metab Screen Negative U Marijuana (THC) Screen Negative Enterovirus Source HIV 1&2 Antibody Rapid HCG (Qual) Negative 02/28/24 02/28/24 02/28/24 22:10 22:17 22:23 WBC RBC Hgb Hct MCV MCH MCHC RDW Std Deviation Plt Count Neut % (Auto) Lymph % (Auto) [place] % (Auto) Eos % (Auto) Baso % (Auto) Neut # (Auto) Lymph # (Auto) [place] # (Auto) Eos # (Auto) Baso # (Auto) Immature Gran # (Auto) Absolute Nucleated RBC Immature Gran % Nucleated RBC % ESR 31 H PT INR APTT Sodium Potassium Chloride Carbon Dioxide Anion Gap BUN Creatinine Estim Creat Clear Calc eGFR BUN/Creatinine Ratio Glucose Calculated Osmolality Calcium Corrected Calcium Magnesium Total Bilirubin AST ALT Alkaline Phosphatase Troponin I C-Reactive Prot, Quant Total Protein Albumin Globulin Albumin/Globulin Ratio Vitamin B12 Folate TSH Free T4 Ur Collection Type Urine Color Urine Clarity Urine pH Ur Specific [place] Urine Protein Urine Glucose (UA) Urine Ketones Urine Blood Urine Nitrite Urine Bilirubin Urine Urobilinogen (Auto) Ur Leukocyte Esterase Urine RBC Urine WBC Ur Squamous Epith Cells Calcium Oxalate Crystal Amorphous Crystals Urine Bacteria CSF Source Cancelled CSF Appearance Clear CSF Color Colorless CSF WBC 72 CSF RBC 23 CSF Cell Count Tube # Tube #3 CSF Mononuclear WBCs 5 CSF Polynuclear WBCs 95 CSF Glucose 27 L* D CSF Total Protein 179 H CSF VDRL Cancelled CSF Enterovirus RNA Qual Cancelled CSF H.influenzae B Ag Negative CSF Herpes I DNA (PCR) Cancelled CSF Herpes II DNA (PCR) Cancelled CSF N.meningit ACY/W135 Negative CSF N.mening B/E.coli K1 Negative CSF Strep B Antigen Negative CSF Strep pneumoniae Ag Negative CSF [place] IgG Ab Cancelled CSF [place] IgM Ab Cancelled Urine Opiates Screen Urine Fentanyl Screen Ur Barbiturates Screen U Amphetamin/Meth Scrn U Benzodiazepines Scrn U Cocaine Metab Screen U Marijuana (THC) Screen Enterovirus Source Cancelled HIV 1&2 Antibody Rapid HCG (Qual) 02/29/24 02/29/24 04:56 10:33 WBC 7.5 RBC 4.23 Hgb 13.4 Hct 37.8 MCV 89 MCH 31.7 MCHC 35.4 RDW Std Deviation 42.4 Plt Count 293 Neut % (Auto) 91 H Lymph % (Auto) 7 L [place] % (Auto) 1 Eos % (Auto) 0 Baso % (Auto) 0 Neut # (Auto) 6.8 Lymph # (Auto) 0.5 L [place] # (Auto) 0.1 Eos # (Auto) 0.0 Baso # (Auto) 0.0 Immature Gran # (Auto) 0.02 H Absolute Nucleated RBC 0.00 Immature Gran % 0 Nucleated RBC % 0 ESR PT INR APTT Sodium 129 L Potassium 3.3 L Chloride 98 Carbon Dioxide 27.8 Anion Gap 3 L BUN < 5 L Creatinine 0.4 L Estim Creat Clear Calc 125.3 eGFR > 60 BUN/Creatinine Ratio 13 Glucose 115 H Calculated Osmolality 257 L Calcium 9.6 Corrected Calcium Magnesium Total Bilirubin AST ALT Alkaline Phosphatase Troponin I C-Reactive Prot, Quant Total Protein Albumin Globulin Albumin/Globulin Ratio Vitamin B12 Folate TSH Free T4 Ur Collection Type Urine Color Urine Clarity Urine pH Ur Specific [place] Urine Protein Urine Glucose (UA) Urine Ketones Urine Blood Urine Nitrite Urine Bilirubin Urine Urobilinogen (Auto) Ur Leukocyte Esterase Urine RBC Urine WBC Ur Squamous Epith Cells Calcium Oxalate Crystal Amorphous Crystals Urine Bacteria CSF Source CSF Appearance CSF Color CSF WBC CSF RBC CSF Cell Count Tube # CSF Mononuclear WBCs CSF Polynuclear WBCs CSF Glucose CSF Total Protein CSF VDRL CSF Enterovirus RNA Qual CSF H.influenzae B Ag CSF Herpes I DNA (PCR) CSF Herpes II DNA (PCR) CSF N.meningit ACY/W135 CSF N.mening B/E.coli K1 CSF Strep B Antigen CSF Strep pneumoniae Ag CSF [place] IgG Ab CSF [place] IgM Ab Urine Opiates Screen Urine Fentanyl Screen Ur Barbiturates Screen U Amphetamin/Meth Scrn U Benzodiazepines Scrn U Cocaine Metab Screen U Marijuana (THC) Screen Enterovirus Source HIV 1&2 Antibody Rapid Non-Reactive HCG (Qual) Quality Measures Quality Measures none Assessment & Plan Assessment Current Active Medications: Generic Name Dose Route Start Last Admin Trade Name Freq PRN Reason Stop Dose Admin Enoxaparin Sodium 40 mg 02/29/24 09:00 02/29/24 09:18 Enoxaparin Sod Inj 40 Mg/0.4 Ml Syringe SC 03/14/24 08:59 40 mg QDAY ROGER Administration Ceftriaxone Sodium 2 gm/ 50 mls @ 100 mls/hr 02/28/24 23:40 02/29/24 09:07 Sodium Chloride IV 03/06/24 23:39 100 mls/hr Q12HR ROGER Administration Ampicillin Sodium 2,000 mg/ 100 mls @ 100 mls/hr 02/28/24 23:35 02/29/24 10:43 Sodium Chloride IV 03/06/24 23:34 100 mls/hr Q4HR ROGER Administration Acyclovir Sodium 680 mg/ 113.6 mls @ 100 mls/hr 02/28/24 23:45 02/29/24 09:48 Sodium Chloride IV 03/06/24 23:44 100 mls/hr Q8HR ROGER Administration Vancomycin/Sodium Chloride 200 mls @ 120 mls/hr 02/29/24 14:00 Vancomycin/Ns 1 Gm Ivpb IV 03/07/24 13:59 Q8HR ROGER Protocol Fluconazole 800 mg in 400 mls @ 100 mls/hr 02/29/24 10:10 02/29/24 10:49 Diflucan/Ns Ivpb IV 03/07/24 10:09 100 mls/hr QDAY ROGER Administration Ondansetron HCl 4 mg 02/28/24 14:28 Ondansetron Inj 2 Mg/Ml Inj 2 Ml IV 03/29/24 14:27 Q4HR PRN NAUSEA OR VOMITING Pharmacy Consult 1 each 02/28/24 23:40 Vancomycin Pharmacy To Dose 1 Each Each IV 03/29/24 23:39 QDAY PRN CONSULT Plan 58-year-old female with a past medical history of hypertension, hyperlipidemia, fibromyalgia, migraines, and 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 Guillain-[place]) vs meningitis. 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 CSF influenza, meningitis, strep negative pending mild protein only with no bands and cocci Plan: Repeat Brain MRI w/con and Venogram MRI pending read Teleneurology consulted, appreciate recs ID consulted, appreciate recs Will start patient on Fluconazole for empiric Cocci coverage Discontinued Vanc; will keep Ampicillin, Ceftriaxone and Acyclovir Neurochecks q4h Bedside swallow eval DVT prophylaxis Head of bed 30 degrees Euglycemia and avoid hyperthermia Follow-up CSF analysis #Hypertension #Hyperlipidemia #Fibromyalgia #Migraines Pending med rec and swallow evaluation Hospital management: Lines: Peripheral Diet: NPO, pending swallow eval Bowel: Senna prn GI prophylaxis: Not needed DVT prophylaxis: Enoxaparin SC Disposition: Pending CSF labs and MRI w/con Venogram MRI CODE STATUS: Full code Patient seen and examined with attending Dr. Gonzalez and senior resident Dr. Pamela Ley, PGY-1 Attending Provider Attestation/Addendum Ara, Dahiana Gonzalez, DO, attest that I was physically present for the bennett portions of the service and evaluated the patient with the resident and I reviewed and discussed the case with the resident and agree with the resident's findings and plans of care as documented above Patient seen and evaluated this AM. Patient was recently diagnosed with CVA in right cerebellar hemisphere/ vermis. Per patient's son, patient has had headache and unsteady gait since CVA. LP was done yesterday showing hypoglycorrachia on CSF and elevated protein, concerning for fungal versus bacterial meningitis. S. pneumo was negative on CSF. Will discontinue decadron at this time. ID also consulted to narrow abx. Patient was positive for cocci on 02/04/24 during which titer was noted to be 1:16. Started patient empirically on fluconazole. Case discussed with neurology. Agrees that CSF is consistent with infection. Recommends MRV and MRI with contrast to rule out cavernous sinus thrombosis and the later, viral encephalitis. Patient is understanding of speech, but is aphasic. She continues to have right sided hemiplegia and right facial droop. Recent EGD biopsy results were positive for H.Pylori. patient has not started treatment, but will resume once PO intake can be restarted.
--- NOTE | 2024-02-29 14:05 | PD.IDPROG ---
Subjective Subjective Interval history: pos cocci in 2019 noted. on empiric rx Exam Vital Signs Temp Pulse Resp BP Pulse Ox O2 Del Method 96 F L 87 20 139/84 H 100 Room Air 02/29/24 12:00 02/29/24 12:00 02/29/24 12:00 02/29/24 12:00 02/29/24 12:00 02/29/24 12:00 Narrative Exam out of room. empiric rx ok for now. will go over results on Tuesday Objective - Internal Medicine Labs 02/29/24 04:56 02/29/24 04:56 Labs: Laboratory Results - last 24 hr 02/28/24 02/28/24 02/28/24 15:43 16:12 16:55 WBC 9.7 RBC 4.02 Hgb 12.7 Hct 36.0 MCV 90 MCH 31.6 MCHC 35.3 RDW Std Deviation 42.7 Plt Count 275 Neut % (Auto) 77 Lymph % (Auto) 13 [place] % (Auto) 9 Eos % (Auto) 0 Baso % (Auto) 1 Neut # (Auto) 7.5 Lymph # (Auto) 1.3 [place] # (Auto) 0.8 Eos # (Auto) 0.0 Baso # (Auto) 0.1 Immature Gran # (Auto) 0.02 H Absolute Nucleated RBC 0.00 Immature Gran % 0 Nucleated RBC % 0 ESR Cancelled PT 11.5 INR 1.1 APTT 23.6 D Sodium 125 L Potassium 3.4 Chloride 93 L Carbon Dioxide 26.2 Anion Gap 6 L BUN 6 L Creatinine 0.5 L Estim Creat Clear Calc 112.2 eGFR > 60 BUN/Creatinine Ratio 12 Glucose 116 H Calculated Osmolality 250 L Calcium 9.9 Corrected Calcium 9.9 Magnesium 1.8 Total Bilirubin 1.3 H AST 15 ALT 15 Alkaline Phosphatase 82 Troponin I < 0.020 C-Reactive Prot, Quant < 0.4 Total Protein 7.3 Albumin 4.0 Globulin 3.3 Albumin/Globulin Ratio 1.2 Vitamin B12 551 Folate 11.29 TSH 1.63 Free T4 1.15 Ur Collection Type Catheter Urine Color Lt-Yellow Urine Clarity Clear Urine pH 7.0 Ur Specific [place] 1.014 Urine Protein Negative Urine Glucose (UA) Negative Urine Ketones Negative Urine Blood Negative Urine Nitrite Negative Urine Bilirubin Negative Urine Urobilinogen (Auto) Negative Ur Leukocyte Esterase Negative Urine RBC 1 Urine WBC 2 Ur Squamous Epith Cells 0 Calcium Oxalate Crystal 1+ A Amorphous Crystals Present A Urine Bacteria None CSF Source CSF Appearance CSF Color CSF WBC CSF RBC CSF Cell Count Tube # CSF Mononuclear WBCs CSF Polynuclear WBCs CSF Glucose CSF Total Protein CSF VDRL CSF Enterovirus RNA Qual CSF H.influenzae B Ag CSF Herpes I DNA (PCR) CSF Herpes II DNA (PCR) CSF N.meningit ACY/W135 CSF N.mening B/E.coli K1 CSF Strep B Antigen CSF Strep pneumoniae Ag CSF [place] IgG Ab CSF [place] IgM Ab Urine Opiates Screen Negative Urine Fentanyl Screen Negative Ur Barbiturates Screen Negative U Amphetamin/Meth Scrn Negative U Benzodiazepines Scrn Negative U Cocaine Metab Screen Negative U Marijuana (THC) Screen Negative Enterovirus Source HIV 1&2 Antibody Rapid HCG (Qual) Negative 02/28/24 02/28/24 02/28/24 22:10 22:17 22:23 WBC RBC Hgb Hct MCV MCH MCHC RDW Std Deviation Plt Count Neut % (Auto) Lymph % (Auto) [place] % (Auto) Eos % (Auto) Baso % (Auto) Neut # (Auto) Lymph # (Auto) [place] # (Auto) Eos # (Auto) Baso # (Auto) Immature Gran # (Auto) Absolute Nucleated RBC Immature Gran % Nucleated RBC % ESR 31 H PT INR APTT Sodium Potassium Chloride Carbon Dioxide Anion Gap BUN Creatinine Estim Creat Clear Calc eGFR BUN/Creatinine Ratio Glucose Calculated Osmolality Calcium Corrected Calcium Magnesium Total Bilirubin AST ALT Alkaline Phosphatase Troponin I C-Reactive Prot, Quant Total Protein Albumin Globulin Albumin/Globulin Ratio Vitamin B12 Folate TSH Free T4 Ur Collection Type Urine Color Urine Clarity Urine pH Ur Specific [place] Urine Protein Urine Glucose (UA) Urine Ketones Urine Blood Urine Nitrite Urine Bilirubin Urine Urobilinogen (Auto) Ur Leukocyte Esterase Urine RBC Urine WBC Ur Squamous Epith Cells Calcium Oxalate Crystal Amorphous Crystals Urine Bacteria CSF Source Cancelled CSF Appearance Clear CSF Color Colorless CSF WBC 72 CSF RBC 23 CSF Cell Count Tube # Tube #3 CSF Mononuclear WBCs 5 CSF Polynuclear WBCs 95 CSF Glucose 27 L* D CSF Total Protein 179 H CSF VDRL Cancelled CSF Enterovirus RNA Qual Cancelled CSF H.influenzae B Ag Negative CSF Herpes I DNA (PCR) Cancelled CSF Herpes II DNA (PCR) Cancelled CSF N.meningit ACY/W135 Negative CSF N.mening B/E.coli K1 Negative CSF Strep B Antigen Negative CSF Strep pneumoniae Ag Negative CSF [place] IgG Ab Cancelled CSF [place] IgM Ab Cancelled Urine Opiates Screen Urine Fentanyl Screen Ur Barbiturates Screen U Amphetamin/Meth Scrn U Benzodiazepines Scrn U Cocaine Metab Screen U Marijuana (THC) Screen Enterovirus Source Cancelled HIV 1&2 Antibody Rapid HCG (Qual) 02/29/24 02/29/24 04:56 10:33 WBC 7.5 RBC 4.23 Hgb 13.4 Hct 37.8 MCV 89 MCH 31.7 MCHC 35.4 RDW Std Deviation 42.4 Plt Count 293 Neut % (Auto) 91 H Lymph % (Auto) 7 L [place] % (Auto) 1 Eos % (Auto) 0 Baso % (Auto) 0 Neut # (Auto) 6.8 Lymph # (Auto) 0.5 L [place] # (Auto) 0.1 Eos # (Auto) 0.0 Baso # (Auto) 0.0 Immature Gran # (Auto) 0.02 H Absolute Nucleated RBC 0.00 Immature Gran % 0 Nucleated RBC % 0 ESR PT INR APTT Sodium 129 L Potassium 3.3 L Chloride 98 Carbon Dioxide 27.8 Anion Gap 3 L BUN < 5 L Creatinine 0.4 L Estim Creat Clear Calc 125.3 eGFR > 60 BUN/Creatinine Ratio 13 Glucose 115 H Calculated Osmolality 257 L Calcium 9.6 Corrected Calcium Magnesium Total Bilirubin AST ALT Alkaline Phosphatase Troponin I C-Reactive Prot, Quant Total Protein Albumin Globulin Albumin/Globulin Ratio Vitamin B12 Folate TSH Free T4 Ur Collection Type Urine Color Urine Clarity Urine pH Ur Specific [place] Urine Protein Urine Glucose (UA) Urine Ketones Urine Blood Urine Nitrite Urine Bilirubin Urine Urobilinogen (Auto) Ur Leukocyte Esterase Urine RBC Urine WBC Ur Squamous Epith Cells Calcium Oxalate Crystal Amorphous Crystals Urine Bacteria CSF Source CSF Appearance CSF Color CSF WBC CSF RBC CSF Cell Count Tube # CSF Mononuclear WBCs CSF Polynuclear WBCs CSF Glucose CSF Total Protein CSF VDRL CSF Enterovirus RNA Qual CSF H.influenzae B Ag CSF Herpes I DNA (PCR) CSF Herpes II DNA (PCR) CSF N.meningit ACY/W135 CSF N.mening B/E.coli K1 CSF Strep B Antigen CSF Strep pneumoniae Ag CSF [place] IgG Ab CSF [place] IgM Ab Urine Opiates Screen Urine Fentanyl Screen Ur Barbiturates Screen U Amphetamin/Meth Scrn U Benzodiazepines Scrn U Cocaine Metab Screen U Marijuana (THC) Screen Enterovirus Source HIV 1&2 Antibody Rapid Non-Reactive HCG (Qual) Assessment & Plan A&P Narrative encephalitis, 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 no chart data from that time to note prior rx. Time Spent With Patient Time: Total time spent is greater than 50% in coordination of care (as documented) at patient's floor/unit and/or counseling patient:
[2024-02-29 16:46] LABS: Syphilis Nonreactive (Nonreactive)
[2024-02-29 16:48] LABS: Ammonia < 10 uMol/L (11-32)
[2024-02-29 17:43] LABS: Hepatitis C Antibody Non Reactive (Non React)
[2024-03-01] VITALS (8 sets, daily range): BP systolic 108–140; BP diastolic 63–83; PULSE 64–90; RESP 16–99; TEMP 35.9–36.3; O2SAT 95–100; BMI 12.0
[2024-03-01] MEDS: Ampicillin Inj 2,000 MG in SODIUM CHLORIDE 0.9% (P) 100 ML 100 MG IV ×6 (01:10→21:24)
[2024-03-01] MEDS: SODIUM CHLORIDE 0.9% IV ×3 (05:01→21:24)
[2024-03-01] MEDS: ACYCLOVIR IV ×3 (05:01→21:24)
[2024-03-01 05:48] LABS: Basophils % (Auto) 0 % (0-2.5); Eosinophils % (Auto) 0 % (0-10); Hematocrit 34.1 % (36.0-46.0); Hemoglobin 11.6 g/dL (12.0-16.0); Immature Granulocytes % (Auto) 0 % (0-0); Immature Granulocytes Auto 0.03 Thou/mm3 (0.00-0.00); Lymphocytes # (Auto) 0.6 Thou/mm3 (1.0-4.8); Lymphocytes % (Auto) 8 % (10-50); Mean Corpuscular Hemoglobin 31.2 pg (25.0-35.0); Mean Corpuscular Volume 92 fL (80-100); Monocytes # (Auto) 0.2 Thou/mm3 (0.0-0.8); Monocytes % (Auto) 3 % (0-12); Neutrophils # (Auto) 7.2 Thou/mm3 (1.8-7.7); Neutrophils % (Auto) 89 % (37-80); Nucleated Red Blood Cell % 0 /100 WBC (0); Platelet Count 306 Thou/mm3 (140-440); RDW Standard Deviation 44.5 fL (36.4-46.3); Red Blood Count 3.72 Miln/mm3 (4.00-5.20); White Blood Count 8.1 Thou/mm3 (3.6-11.0)
[2024-03-01 05:52] LABS: Quantiferon-TB* See Sep Rpt
[2024-03-01 06:40] LABS: Anion Gap 8 (7-16); BUN/Creatinine Ratio 12 Ratio (12-20); Blood Urea Nitrogen 6 mg/dL (9-23); Calcium 9.6 mg/dL (8.3-10.6); Carbon Dioxide 22.3 mMol/L (20.0-31.0); Chloride 104 mMol/L (98-107); Creatinine (Component) 0.5 mg/dL (0.6-1.3); Estimated Creatinine Clearance 95.8 mL/min (>60); Glucose 128 mg/dL (74-106); Osmolality,Calculated 267 (275-295); Potassium 3.6 mMol/L (3.4-5.1); Sodium 134 mMol/L (136-145); Thyroid Stimulating Hormone 0.71 uIU/mL (0.55-4.78); eGFR > 60 See Note
--- NOTE | 2024-03-01 07:53 | ECHO_ITS ---
Transthoracic Echo Report Ht (in): 62 Wt (lb): 130 Exam Location: Portable Status: Inpatient [employer]: Betty Potter Indications: Procedure Performed: BP: 108 / 63 HR: 64 Rhythm: Sinus Technical Quality: Fair Contrast: Agitated Saline Total Dose (mL): MEASUREMENTS (Male / Female) Normal Values 2D ECHO LV Diastolic Diameter PLAX 3.7 cm 4.2 - 5.9 / 3.9 - 5.3 cm LV Systolic Diameter PLAX 2.3 cm IVS Diastolic Thickness 0.7 cm 0.6 - 1.0 / 0.6 - 0.9 cm LVPW Diastolic Thickness 0.9 cm 0.6 - 1.0 / 0.6 - 0.9 cm LV Relative Wall Thickness 0.4 LVOT Diameter 1.7 cm LA Volume Index 17.1 cm?/m? 16 - 28 cm?/m? Ascending Aorta Diameter 2.7 cm M-MODE Aortic Root Diameter MM 2.5 cm LA Systolic Diameter MM 3.4 cm LA Ao Ratio MM 1.4 AV Cusp Separation MM 1.9 cm DOPPLER AV Peak Velocity 148.0 cm/s AV Peak Gradient 8.8 mmHg AV Mean Gradient 4.0 mmHg AV Velocity Time Integral 26.1 cm LVOT Peak Velocity 132.0 cm/s LVOT Peak Gradient 7.0 mmHg LVOT Velocity Time Integral 26.2 cm LVOT Cardiac Index 2356.6 cm?/min?m? AV Area Cont Eq vti 2.3 cm? AV Area Cont Eq pk 2.0 cm? MV Peak Velocity 115.0 cm/s MV Peak Gradient 5.3 mmHg MV Mean Velocity 79.3 cm/s MV Mean Gradient 3.0 mmHg MV Area PHT 5.6 cm? Mitral E Point Velocity 72.8 cm/s Mitral A Point Velocity 87.3 cm/s Mitral E to A Ratio 0.8 LV E' Lateral Velocity 5.3 cm/s Mitral E to LV E' Lateral Ratio 13.7 LV E' Septal Velocity 7.0 cm/s Mitral E to LV E' Septal Ratio 10.5 TR Peak Velocity 217.5 cm/s TR Peak Gradient 18.9 mmHg FINDINGS Left Ventricle Normal left ventricular size, wall thickness, systolic function with no obvious regional wall motion abnormalities. The ejection fraction is visually estimated at 60-65 %. Right Ventricle The right ventricle is normal in size and systolic function. The estimated right ventricular systoli c pressure, 20mmHg. RAP 5. Left Atrium The left atrium is normal by two-dimensional, color flow and Doppler imaging with no structural abnormalities, no thrombus formation present. Right Atrium The right atrium is normal by two-dimensional imaging, color flow and Doppler imaging with no struct ural abnormalities, no thrombus formation present. Atrial Septum The interatrial septum appears normal with no evidence of a shunt. Aorta The aorta is normal by two-dimensional, color flow and Doppler interrogation. Mitral Valve The mitral valve is normal by two-dimensional, color flow and Doppler interrogation. There is no sig nificant mitral valve regurgitation. Aortic Valve The aortic valve is trileaflet and normal by two-dimensional, color flow and Doppler interrogation. There is no significant aortic valve regurgitation. Tricuspid Valve The tricuspid valve is normal by two-dimensional, color flow and Doppler interrogation. There is tra ce tricuspid valve regurgitation. Pulmonic Valve There is no significant pulmonic valve regurgitation. Vessels The pulmonary artery appears normal. The inferior vena cava pulmonary and hepatic veins appear magen l. Pericardium The pericardium is normal by two-dimensional imaging. There is no significant pericardial effusion. CONCLUSIONS Negative bubble study. No evidence of PFO or ASD Normal LV size and function. Grade I diastolic dysfunction. Estimated EF 60-65% Normal RV size and function. Trace TRBradley Guevara (Electronically Signed) Final Date: 02 March 2024 08:50
--- NOTE | 2024-03-01 09:03 | PC.CM ---
Patient is opened to [facility] health. If patient discharges home doctor will need to place new home health orders.
[2024-03-01] MEDS: POTASSIUM CHLORIDE 10% 20 MEQ/15 ML UDC 40 MEQ PO (09:21)
[2024-03-01] MEDS: cefTRIAXone 2 GM in SODIUM CHLORIDE 0.9% (P) 50 ML IV ×2 (09:21→20:26)
[2024-03-01] MEDS: FLUCONAZOLE/NS 400 MG IVPB 800 MG/400 ML BAG 100 MG IV (09:21)
--- NOTE | 2024-03-01 10:47 | ESPR_ITS ---
Tele Neuro Progress Note Progress Note Date 03/01/24 Most Recent Vital Signs Last Vital Signs Temp 96.7 F L 03/01/24 04:00 Pulse 64 03/01/24 07:08 Resp 18 03/01/24 07:08 BP 108/63 03/01/24 04:00 Pulse Ox 95 03/01/24 04:00 O2 Del Method Room Air 03/01/24 04:00 Laboratory-Coagulation Panel PT 11.5 Seconds (9.0-12.2) 02/28/24 15:43 INR 1.1 (0.9-1.3) 02/28/24 15:43 APTT 23.6 Seconds (22.0-36.0) D 02/28/24 15:43 Progress Note Narrative [facility] Tele[facility]urology Consult Services Routine Consult Follow-Up Patient Name:???Neda Youssef Date of :???1965 Identification Number:??? Date of Service:???03/01/2024 10:42:59 Diagnosis?R47.01 - Aphasia ?M62.81 - Generalized Muscle Weakness ?G93.49 - Encephalopathy Multifactorial Impression Pt is a 58 yo F with HTN, HLP, frequent migraines with two recent admission on 01/20 for headaches and found to have a right cerebellar stroke on MRI brain and on 01-31-02/03 for fevers and nausea thought to be due to gastroenteritis who was brought in by EMS for aphasia and right sided weakness with a last known well since 10:00. CT Head and it showed a small area of subtle hyperdensity the basal cisterns on the right possibly representing SAH vs artifact. However, pt was also not a candidate for iv-thrombolytics due to her recent stroke last month and presenting outside the time window. CTA head and neck showed no obvious large vessel occlusion or aneurysm. Initial MRI without acute findings; prominant white matter disease vs demyelinating. CSF with elevated protein (179), low glucose (27), concerning for fungal meningitis. Plan: -CT head, CTA reviewed, non acute -MRI Brain w/o contrast without acute findings -MRI Brain w/ contrast repeated 02/28 - concern for acute L BG infarction -MRV grossly unremarkable although limited by movement -Start ASA, statin if permissible -Normotension recommended -Routine EEG to be considered -No indication for AED regimen at this time -Check TSH, NH3, B12, folate, B6 levels -Nutrition and supplementation per primary team -Correction of underlying metabolic, infectious, hematologic derangements per primary team -Avoid polypharmacy to the best of our abilities, to allow for best neurologic examination -Encourage early PT/OT/ST intervention and management -LP completed, CSF studies reviewed thus far -ID following - defer antibiotics, antifungal, antiviral to them Neurology will follow. Discussed with staff. Our recommendations are outlined below Laboratory Studies :Lipid panel * I orderedHemoglobin A1c Nursing Recommendations :IV Fluids, avoid dextrose containing fluids, Maintain euglycemiaNeuro checks q4 hrs x 24 hrs and then per shiftHead of bed 30 degreesContinue with Telemetry Consultations :Recommend Speech therapy if failed dysphagia screenPhysical therapy/Occupational therapy Subjective Patient seen this am. Son at bedside. ? Examination 1A: Level of Consciousness - Alert; keenly responsive?+ 0 1B: Ask Month and Age - Aphasic?+ 2 1C: Blink Eyes & Squeeze Hands - Performs Both Tasks?+ 0 2: Test Horizontal Extraocular Movements - Normal?+ 0 3: Test Visual [place] - No Visual Loss?+ 0 4: Test Facial Palsy (Use Grimace if Obtunded) - Partial paralysis (lower face)? + 2 5A: Test Left Arm Motor Drift - Drift, but doesn't hit bed?+ 1 5B: Test Right Arm Motor Drift - No Effort Against [place]?+ 3 6A: Test Left Leg Motor Drift - Some Effort Against [place]?+ 2 6B: Test Right Leg Motor Drift - No Effort Against [place]?+ 3 7: Test Limb Ataxia (FNF/Heel-[place]) - Does Not Understand?+ 0 8: Test Sensation - Normal; No sensory loss?+ 0 9: Test Language/Aphasia - Mute/Global Aphasia: No Usable Speech/Auditory Comprehension?+ 3 10: Test Dysarthria - Mild-Moderate Dysarthria: Slurring but can be understood?+ 1 11: Test Extinction/Inattention - No abnormality?+ 0 NIHSS Score:?17 ? This consult was conducted in real time using interactive audio and video technology. Patient was informed of the technology being used for this visit and agreed to proceed. Patient located in hospital and provider located at home/office setting. Telehealth Neurology consultation was provided. I spent minutes providing telehealth care. This includes time spent for face to face visit via telemedicine, review of medical records, imaging studies and discussion of findings with providers, the patient and/or family. Dr Francis Romero [facility] For Inpatient follow-up with [facility] physician please call [facility] at . As we are not an outpatient service for any post hospital discharge needs please contact the hospital for assistance. If you have any questions for the [facility] physicians or need to reconsult for clinical or diagnostic changes please contact us via [facility] at ?
--- NOTE | 2024-03-01 10:55 | PCS.ST ---
Speech/Language Evaluation completed. See report for details. ST continue tx for communication and pt/family education. Pt will need continued speech therapy at the next level of care.
--- NOTE | 2024-03-01 13:23 | PC.PT ---
PT shankar completed. Family educated re: doing PROM on RUE/RLE.
--- NOTE | 2024-03-01 13:34 | ESPR_ITS ---
<Statement entered by Lois Santiago MD - 03/02/24 07:03> Patient was seen and examined at bedside. No acute overnight events. Repeat MRI showed acute left basal ganglia. MRV wasn't conclusive study. Tele-neuro recommended patient to be on IV Abx for bacterial meningitis until more CSF results return, and to start Aspirin and Atorvastatin. Will continue with IV Fluconazole to cover for possible cocci meningitis. IV Vancomycin was stopped per ID d/t low suspicion for R pneumococci. Patient able to tolerate PO diet and will start dysphagia diet. Patient appears to have neglect, and will work with PT to have frequent repositioning. There is some concern for hemorraghic conversion d/t patient's previous hx of taking Asa and Plavix and having two strokes within a month apart, and will do CT head if patient's mentation and current baseline worsens. I discussed with and supervised the video editing internship physician who took care of this patient. I personally saw and examined the patient and discussed the assessment and plan with the entire medicine team, including my attending , I agree with most of the assessment and plan as documented below Lois Santiago M.D. PGY-2 Documentation for date of: 03/01/24 Subjective Subjective Interval history: 03/01/2024: No acute overnight events to report. Patient seen and examined this a.m. with mild neurologic improvement; patient is able to communicate minimally with 1-2 words but has persistent right-sided upper and lower extremity weakness, left-sided neglect and persistent facial droop. Repeat brain MRI with contrast was positive for 17 mm acute infarct of the left basal ganglia. Patient's family bedside question regarding her use of aspirin and Plavix after she got her first CVA on January 2024; they state that she took her medications as prescribed. Patient had a stroke even with antiplatelets on; teleneurology has been consulted and are following the patient closely. 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 Once patient makes some progress, she will need to be treated for H. pylori and she will need follow-up with Dr. Wetzel regarding pulmonary nodule 10 mm which was found on CT. Exam Vital Signs Temp Pulse Resp BP Pulse Ox O2 Del Method 96.7 F L 90 18 108/63 95 Room Air 03/01/24 04:00 03/01/24 08:00 03/01/24 07:08 03/01/24 04:00 03/01/24 04:00 03/01/24 04:00 Narrative Exam Physical Exam: GENERAL: Awake, nonverbal, right-sided facial droop, appears stated age HEENT: NC/AT. Moist mucosa. PERRLA/EOMI. CARDIO: Heart RRR, no obvious murmurs, no JVD. PULM: No coughing or visible SOB. Lungs CTA B/L. GI: Abdomen soft, NT/ND, +BS. SKIN/MSK/EXT: No wounds/discoloration/rashes/edema/amputations noted. +Pedal pulses present B/L. NEURO: Nonverbal at this time, eyes tracking, gives thumb-up sign when prompted, GCS 10 E(4) V(1) M(5). R-sided muscle strength 0/5, L 2/5 Objective Labs 03/02/24 05:19 03/02/24 05:19 Labs: Laboratory Results - last 24 hr 02/29/24 03/01/24 15:45 05:04 WBC 8.1 RBC 3.72 L Hgb 11.6 L Hct 34.1 L MCV 92 MCH 31.2 MCHC 34.0 RDW Std Deviation 44.5 Plt Count 306 Neut % (Auto) 89 H Lymph % (Auto) 8 L [place] % (Auto) 3 Eos % (Auto) 0 Baso % (Auto) 0 Neut # (Auto) 7.2 Lymph # (Auto) 0.6 L [place] # (Auto) 0.2 Eos # (Auto) 0.0 Baso # (Auto) 0.0 Immature Gran # (Auto) 0.03 H Absolute Nucleated RBC 0.00 Immature Gran % 0 Nucleated RBC % 0 Sodium 134 L Potassium 3.6 Chloride 104 Carbon Dioxide 22.3 Anion Gap 8 BUN 6 L Creatinine 0.5 L Estim Creat Clear Calc 95.8 eGFR > 60 BUN/Creatinine Ratio 12 Glucose 128 H Calculated Osmolality 267 L Calcium 9.6 Ammonia < 10 L TSH 0.71 Syphilis Serology Nonreactive Hepatitis C Antibody Non Reactive Quality Measures Quality Measures none Assessment & Plan Assessment Current Active Medications: Generic Name Dose Route Start Last Admin Trade Name Freq PRN Reason Stop Dose Admin Aspirin 81 mg 03/01/24 13:30 Aspirin Ec 81 Mg Tabec PO 03/31/24 13:29 QDAY ROGER Atorvastatin Calcium 80 mg 03/01/24 21:00 Atorvastatin Calcium 20 Mg Tablet PO 03/31/24 20:59 HS ROGER Enoxaparin Sodium 40 mg 02/29/24 09:00 02/29/24 09:18 Enoxaparin Sod Inj 40 Mg/0.4 Ml Syringe SC 03/14/24 08:59 40 mg QDAY ROGER Administration Ceftriaxone Sodium 2 gm/ 50 mls @ 100 mls/hr 02/28/24 23:40 03/01/24 09:21 Sodium Chloride IV 03/06/24 23:39 100 mls/hr Q12HR ROGER Administration Ampicillin Sodium 2,000 mg/ 100 mls @ 100 mls/hr 02/28/24 23:35 03/01/24 10:09 Sodium Chloride IV 03/06/24 23:34 100 mls/hr Q4HR ROGER Administration Acyclovir Sodium 680 mg/ 113.6 mls @ 100 mls/hr 02/28/24 23:45 03/01/24 05:01 Sodium Chloride IV 03/06/24 23:44 100 mls/hr Q8HR ROGER Administration Fluconazole 800 mg in 400 mls @ 100 mls/hr 02/29/24 10:10 03/01/24 09:21 Diflucan/Ns Ivpb IV 03/07/24 10:09 100 mls/hr QDAY ROGER Administration Ondansetron HCl 4 mg 02/28/24 14:28 Ondansetron Inj 2 Mg/Ml Inj 2 Ml IV 03/29/24 14:27 Q4HR PRN NAUSEA OR VOMITING Sennosides 1 tab 02/29/24 16:17 Senna Tablet PO 03/30/24 16:16 QDAY PRN CONSTIPATION Protocol Plan 58-year-old female with a past medical history of hypertension, hyperlipidemia, fibromyalgia, migraines, and 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 Guillain-Quin[place]) vs meningitis. 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 CSF influenza, meningitis, strep negative pending mild protein only with no bands and cocci Venogram MRI degraded study Repeat Brain MRI w/con 17 mm acute infarct left basal ganglia; and prominent white matter change again noted Speech therapy recommends extensive speech therapy for months PT recommends acute rehab placement Plan: Teleneurology consulted, appreciate recs ID consulted, appreciate recs Will start Asp per teleneuro recs Continue Fluconazole for empiric Cocci coverage Continue Ampicillin, Ceftriaxone and Acyclovir for now, ID recs pending Neurochecks q4h Bedside swallow eval DVT prophylaxis Head of bed 30 degrees Euglycemia and avoid hyperthermia Follow-up CSF analysis #H. pylori infection #GI malignancy? 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 Pompa was consulted time, completed EGD and biopsy Pathology confirmed H. pylori infection Patient's family states that she was never treated for H. pylori never followed up outpatient with PCP or Dr. Peña Wetzel was also consulted due to Elevated CA 125 and CA 19?9 pending Plan: Once patient is more stable we will treat for H. pylori, triple therapy. Follow-up with Dr. Wetzel (oncology) outpatient #10 mm pulmonary nodule 10 mm pulmonary nodule right lower lobe as seen on CT chest/abdomen/pelvis during hospitalization in mid January for GI symptoms Radiology recommended at that time for 6-month follow-up CT Plan: Followed up patient with CT imaging #Hypertension #Hyperlipidemia #Fibromyalgia #Migraines Holding patient's home lisinopril as BP is stable On high-intensity statin for CVA Hospital management: Lines: Peripheral Diet: NPO, pending swallow eval Bowel: Senna prn GI prophylaxis: Not needed DVT prophylaxis: Enoxaparin SC Disposition: Pending CSF labs and MRI w/con Venogram MRI CODE STATUS: Full code Patient seen and examined with attending Dr. Gonzalez and senior resident Dr. Pamela Ley, PGY-1 LI discussed with and supervised the video editing internship physician who took care of this patient. I personally saw and examined the patient and discussed the assessment and plan with the entire medicine team, including my attending Dr. Lisa Lakhani. I agree with the assessment and plan as documented above. Ms. Neda Brunson is a 58-year-old lady with a past medical history significant for hypertension, hyperlipidemia, fibromyalgia, migraines, and recent stroke (01/21/24) of the right cerebellar hemisphere who was admitted for stroke rule out vs meningitis. Patient was brought in by EMS on 01/31 due to new onset symptoms of aphasia and right sided hemiparesis. Patient underwent a noncontrast CT Head and it showed a small area of subtle hyperdensity the basal cisterns on the right possibly representing SAH vs artifact. Patient was deemed not a candidate for thrombolysis due to recent stroke 1 month prior and also presenting outside the window for thrombolysis. CTA head negative for LVO. Initial MRI without acute findings; prominant white matter disease vs demyelinating. CSF with elevated protein (179), low glucose (27), concerning for fungal meningitis. Repeat MRI showed 17 mm acute infact. Neurology services recommended patient to undergo LP which showed fungal meningitis pattern. ID services recommended to DC Vancomycin as it is for coverage of ceftriaxone resistant pneumococcal which appears to be less likely. Will continue ampicillin, ceftriaxone, acyclovir and fluconazole for coverage of cocci meningitis. Will defer de-escalation of antibiotics to ID. Mike Mata M.D. Internal Medicine PGY-3 Attending Provider Attestation/Addendum I, Dahiana Gonzalez, , attest that I was physically present for the bennett portions of the service and evaluated the patient with the resident and I reviewed and discussed the case with the resident and agree with the resident's findings and plans of care as documented above Patient seen and evaluated this AM. Patient continues to be aphasic with right sided hemiplegia and neglect. MRI results reviewed with family at bedside. She remains on empiric coverage for meningitis due to CSF results concerning for cocci meningitis. She is otherwise afebrile. Patient is able gesture understanding during questioning. Echocardiogram ordered to rule out any vegetations or emboli. Family states that the patient has been compliant with DAPT at home and all home meds. Will f/u with neuro recs. Patient unable to swallow, thus will defer full tx of H.Pylori until patient is able to tolerate PO intake.
[2024-03-01] MEDS: ASPIRIN EC 81 MG TABEC PO (13:44)
[2024-03-01] MEDS: ATORVASTATIN CALCIUM 20 MG TABLET 80 MG PO (20:26)
[2024-03-02] VITALS (9 sets, daily range): BP systolic 127–144; BP diastolic 78–82; PULSE 74–93; RESP 15–98; TEMP 36–36.9; O2SAT 98–99; BMI 12.0
[2024-03-02] MEDS: Ampicillin Inj 2,000 MG in SODIUM CHLORIDE 0.9% (P) 100 ML 100 MG IV ×2 (02:53→05:21)
[2024-03-02 05:37] LABS: Basophils % (Auto) 0 % (0-2.5); Eosinophils % (Auto) 0 % (0-10); Hematocrit 34.4 % (36.0-46.0); Hemoglobin 11.8 g/dL (12.0-16.0); Immature Granulocytes % (Auto) 0 % (0-0); Immature Granulocytes Auto 0.03 Thou/mm3 (0.00-0.00); Lymphocytes # (Auto) 1.1 Thou/mm3 (1.0-4.8); Lymphocytes % (Auto) 10 % (10-50); Mean Corpuscular HGB Conc 34.3 g/dl (31.0-37.0); Mean Corpuscular Hemoglobin 31.6 pg (25.0-35.0); Mean Corpuscular Volume 92 fL (80-100); Monocytes # (Auto) 0.6 Thou/mm3 (0.0-0.8); Monocytes % (Auto) 6 % (0-12); Neutrophils # (Auto) 8.8 Thou/mm3 (1.8-7.7); Neutrophils % (Auto) 84 % (37-80); Nucleated Red Blood Cell % 0 /100 WBC (0); Platelet Count 315 Thou/mm3 (140-440); RDW Standard Deviation 46.1 fL (36.4-46.3); Red Blood Count 3.74 Miln/mm3 (4.00-5.20); White Blood Count 10.5 Thou/mm3 (3.6-11.0)
--- NOTE | 2024-03-02 05:42 | PC.NURSE ---
report received from Sandra, in Telemetry
[2024-03-02 06:06] LABS: Anion Gap 4 (7-16); BUN/Creatinine Ratio 16 Ratio (12-20); Blood Urea Nitrogen 8 mg/dL (9-23); Calcium 9.4 mg/dL (8.3-10.6); Carbon Dioxide 25.2 mMol/L (20.0-31.0); Chloride 106 mMol/L (98-107); Creatinine (Component) 0.5 mg/dL (0.6-1.3); Estimated Creatinine Clearance 104.1 mL/min (>60); Glucose 114 mg/dL (74-106); Osmolality,Calculated 269 (275-295); Potassium 3.7 mMol/L (3.4-5.1); Sodium 135 mMol/L (136-145); eGFR > 60 See Note
--- NOTE | 2024-03-02 06:40 | PC.NURSE ---
acyclovir not available throughout hospital in [facility]. attempted to call pharmacy multiple times, no answer.
--- NOTE | 2024-03-02 09:18 | ESPR_ITS ---
Tele Neuro Progress Note Progress Note Date 03/02/24 Most Recent Vital Signs Last Vital Signs Temp 97.5 F 03/02/24 08:00 Pulse 87 03/02/24 08:00 Resp 15 03/02/24 08:00 BP 127/80 03/02/24 08:00 Pulse Ox 99 03/02/24 08:00 O2 Del Method Room Air 03/02/24 08:00 Laboratory-Coagulation Panel PT 11.5 Seconds (9.0-12.2) 02/28/24 15:43 INR 1.1 (0.9-1.3) 02/28/24 15:43 APTT 23.6 Seconds (22.0-36.0) D 02/28/24 15:43 Progress Note Narrative [facility] TeleNeurology Consult Services Routine Consult Follow-Up Patient Name:???Neda Youssef Date of :???1965 Identification Number:??? Date of Service:???03/02/2024 09:15:49 Diagnosis?R47.01 - Aphasia ?M62.81 - Generalized Muscle Weakness ?G93.49 - Encephalopathy Multifactorial ?I63.00 - Cerebrovascular accident (CVA) due to thrombosis of precerebral artery (HCCC) ?G02.8 - Meningitis in other specified infectious and parasitic diseases classified elsewhere Impression Pt is a 58 yo F with HTN, HLP, frequent migraines with two recent admission on 01/20 for headaches and found to have a right cerebellar stroke on MRI brain and on 01-31-02/03 for fevers and nausea thought to be due to gastroenteritis who was brought in by EMS for aphasia and right sided weakness with a last known well since 10:00. CT Head and it showed a small area of subtle hyperdensity the basal cisterns on the right possibly representing SAH vs artifact. However, pt was also not a candidate for iv-thrombolytics due to her recent stroke last month and presenting outside the time window. CTA head and neck showed no obvious large vessel occlusion or aneurysm. Initial MRI without acute findings; prominant white matter disease vs demyelinating. CSF with elevated protein (179), low glucose (27), concerning for fungal meningitis. Plan: -CT head, CTA reviewed, non acute -MRI Brain w/o contrast without acute findings -MRI Brain w/ contrast repeated 02/28 - concern for acute L BG infarction -MRV grossly unremarkable although limited by movement -Start ASA, statin if permissible -Normotension recommended -Routine EEG to be considered -No indication for AED regimen at this time -Check TSH, NH3, B12, folate, B6 levels -Nutrition and supplementation per primary team -Correction of underlying metabolic, infectious, hematologic derangements per primary team -Avoid polypharmacy to the best of our abilities, to allow for best neurologic examination -Encourage early PT/OT/ST intervention and management -LP completed, CSF studies reviewed thus far -ID following - defer antibiotics, antifungal, antiviral to them Neurology will follow. Discussed with staff. Our recommendations are outlined below Diagnostic Studies :Lumbar puncture to be done under fluoroscopy Laboratory Studies :Check B12/folateTSHAmmoniaCMPCBC with diffblood cultures x 2ESR/CRPHIVCOVID testCSF Cell count with diff, protein, glucose, gram stain, culture, HSV PCR, VDRL, save sample for additional testing Medications :Thiamine 500mg TID X 2 days then 250mg IV daily for 5 days then 100mg daily POFolic acid Nursing Recommendations :Delirium precautions: Blinds open during the day, closed at night, frequent reorientation, minimize nighttime interruptionsWhen possible avoid benzodiazepines, opioid pain medications, and anticholinergic medications Consultations :Toxic metabolic work up per primary teamID consultation for as sistance with management if available DVT Prophylaxis :Choice of Primary Team Disposition :Neurology will follow Subjective Patient seen this am. Patient able to say hi. States she is good ? Examination 1A: Level of Consciousness - Alert; keenly responsive?+ 0 1B: Ask Month and Age - Aphasic?+ 2 1C: Blink Eyes & Squeeze Hands - Performs Both Tasks?+ 0 2: Test Horizontal Extraocular Movements - Normal?+ 0 3: Test Visual Hodges - No Visual Loss?+ 0 4: Test Facial Palsy (Use Grimace if Obtunded) - Partial paralysis (lower face)? + 2 5A: Test Left Arm Motor Drift - Drift, but doesn't hit bed?+ 1 5B: Test Right Arm Motor Drift - No Effort Against Basom?+ 3 6A: Test Left Leg Motor Drift - Some Effort Against Basom?+ 2 6B: Test Right Leg Motor Drift - No Effort Against Basom?+ 3 7: Test Limb Ataxia (FNF/Heel-[place]) - Does Not Understand?+ 0 8: Test Sensation - Normal; No sensory loss?+ 0 9: Test Language/Aphasia - Mute/Global Aphasia: No Usable Speech/Auditory Comprehension?+ 3 10: Test Dysarthria - Mild-Moderate Dysarthria: Slurring but can be understood?+ 1 11: Test Extinction/Inattention - No abnormality?+ 0 NIHSS Score:?17 ? This consult was conducted in real time using interactive audio and video technology. Patient was informed of the technology being used for this visit and agreed to proceed. Patient located in hospital and provider located at home/office setting. Telehealth Neurology consultation was provided. I spent minutes providing telehealth care. This includes time spent for face to face visit via telemedicine, review of medical records, imaging studies and discussion of findings with providers, the patient and/or family. Dr Francis Romero [facility] For Inpatient follow-up with [facility] physician please call [facility] at . As we are not an outpatient service for any post hospital discharge needs please contact the hospital for assistance. If you have any questions for the [facility] physicians or need to reconsult for clinical or diagnostic changes please contact us via [facility] at ?
--- NOTE | 2024-03-02 09:46 | PD.IDPROG ---
Subjective Subjective Interval history: called [facility]. no data. have to wait. likely till tuesday as they can not be reached over weekend Exam Vital Signs Temp Pulse Resp BP Pulse Ox O2 Del Method 97.5 F 87 15 127/80 99 Room Air 03/02/24 08:00 03/02/24 08:00 03/02/24 08:00 03/02/24 08:00 03/02/24 08:00 03/02/24 08:00 Narrative Exam acute rt pippa noted. not walking. no meningismus overtly, bc neg Objective - Internal Medicine Labs 03/02/24 05:19 03/02/24 05:19 Labs: Laboratory Results - last 24 hr 03/02/24 05:19 WBC 10.5 RBC 3.74 L Hgb 11.8 L Hct 34.4 L MCV 92 MCH 31.6 MCHC 34.3 RDW Std Deviation 46.1 Plt Count 315 Neut % (Auto) 84 H Lymph % (Auto) 10 [place] % (Auto) 6 Eos % (Auto) 0 Baso % (Auto) 0 Neut # (Auto) 8.8 H Lymph # (Auto) 1.1 [place] # (Auto) 0.6 Eos # (Auto) 0.0 Baso # (Auto) 0.0 Immature Gran # (Auto) 0.03 H Absolute Nucleated RBC 0.00 Immature Gran % 0 Nucleated RBC % 0 Sodium 135 L Potassium 3.7 Chloride 106 Carbon Dioxide 25.2 Anion Gap 4 L BUN 8 L Creatinine 0.5 L Estim Creat Clear Calc 104.1 eGFR > 60 BUN/Creatinine Ratio 16 Glucose 114 H Calculated Osmolality 269 L Calcium 9.4 Assessment & Plan A&P Narrative encephalitis, cause pending hx of cocci. original dx january 2024: 1:16 sudden onset of sx with rt pippa more c/w cva and less so with cocci usually can not reach [facility] over weekend. with no meningeal findings, will stop abx and acv and statin as that can interact with azole and if cocci neg and we stop the flucon next week, then ok to restart the statin after that. Time Spent With Patient Time: Total time spent is greater than 50% in coordination of care (as documented) at patient's floor/unit and/or counseling patient:
[2024-03-02] MEDS: ASPIRIN EC 81 MG TABEC PO (10:04)
[2024-03-02 11:38] LABS: Folate 6.99 ng/mL (>5.38); Vitamin B12 644 pg/mL (211-911)
--- NOTE | 2024-03-02 11:43 | ESCONSULT_ITS ---
RE: DAMIAN ROBERTS : 1965 DATE OF CONSULTATION: 03/01/2024 REFERRING PHYSICIAN: Dr. Gonzalez, hospitalist. 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 HISTORY OF PRESENT ILLNESS: The patient is an unfortunate 58-year-old woman who had a prior stroke in January. She is known to have cvd and some mild chronic kidney disease as noted previously. PAST SURGICAL HISTORY: Includes hysterectomy and back surgery. Details are limited to information from relatives. ALLERGIES: NONE NOTED. IMMUNIZATIONS: Last tetanus is not known. Same for influenza. She has had two COVID vaccines. She is not routine candidate for pneumococcal vaccination, although she may be with her advancing illness. FAMILY HISTORY: Positive for diabetes and coronary artery disease in her mother and cancer in her father. SOCIAL HISTORY: She lives with her and a son. Quit smoking about one week prior to admission. PHYSICAL EXAMINATION: The patient is nonverbal. She has a right hemiparesis and is unable to ambulate and is attended to by a relative. Previously, she had a stroke in January and at that time had left-sided hemiparesis, but that is much better and left side is preserved at this time. LABORATORY DATA: Her CSF is abnormal and there has been concern for Valley fever, but she lives here in town and so it may be a false positive, it is hard to know. RECOMMENDATIONS: We are waiting on the Valley fever test, both the serum and the CSF. at [facility]. I called them, but they did not have the results. We will still leave her on treatment pending further data. The treatment can be oral which is the same as IV. I will check on her again on Tuesday as her case progresses. DT: 10:54:31 TT: 11:09:00 Ref: [id number] - TID: [id number] MTDD
--- NOTE | 2024-03-02 12:00 | PC.SS ---
SS sent out inquiry to both acute rehabs in [place] and [place]. SS also sent inquiries to all local SNF's. SS was updated that patient does have coverage for SNF with 100% coverage after meeting deductible, which patient already met. Up to 100 days. SNF could be alternate option. [facility] completed. [place] is currently reviewing and wanted updated PT notes as well as Dr. Hernandez notes. Under review.
[2024-03-02 12:34] LABS: Ammonia 15 uMol/L (11-32)
[2024-03-02] MEDS: Lisinopril 2.5 MG TABLET 10 MG PO (13:46)
--- NOTE | 2024-03-02 13:49 | PC.SS ---
Follow up note: spoke to daughter, Teresita Sales, daughter, to verify d/c plan. Daughter prefers [facility] acute rehab and if they decline, then [facility]. They will need to follow up Tuesday as Infec. disease notes are waiting on lab results
--- NOTE | 2024-03-02 15:15 | ESPR_ITS ---
Documentation for date of: 03/02/24 Subjective Subjective Interval history: Neda Sauceda is a 58-year-old female with a past medical history of hypertension, hyperlipidemia, fibromyalgia, migraines, and 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 Given patient's clinical status, daughter at bedside provided history. Father called daughter stating that patient was weak to get out of bed, then son went to see patient at 10 a.m. and patient was not responding to questions. EMS was called and patient was then brought to the ED. In ED, patient was noted to have right-sided hemiparesis, right-sided facial droop, and aphasia so stroke alert was called. Initial CT head showed concern for possible SAH versus artifact. However, patient not candidate for thrombolytics given recent stroke within last month and outside of window. Of note, patient discharged 02/03 after being admitted for gastroenteritis, found to have elevated CA 125, and was told to follow-up with Dr. Wetzel outpatient but had not been able to due to insurance issues. 02/28: No acute overnight events to report. Patient seen and examined in hospital bed with and daughter at bedside. Patient was difficult to arouse; however, eventually she woke up. Patient is nonverbal at this time but is able to track with his eyes and seems to understand questioning by giving a thumbs up sign. There is definite right-sided facial drooping noted when patient is asked to smile or opening her mouth. Teleneurology was consulted and the recommendation was to repeat MRI with contrast along with MRV. Telemetry neurology also recommends with discontinuing some of the empiric medications but to follow-up with ID which has also been consulted. Infectious disease recommends on discontinuing vancomycin to continue the other medications at this time. 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 03/01: No acute overnight events to report. Patient seen and examined this a.m. with mild neurologic improvement; patient is able to communicate minimally with 1-2 words but has persistent right-sided upper and lower extremity weakness, left-sided neglect and persistent facial droop. Repeat brain MRI with contrast was positive for 17 mm acute infarct of the left basal ganglia. Patient's family bedside question regarding her use of aspirin and Plavix after she got her first CVA on January 2024; they state that she took her medications as prescribed. Patient had a stroke even with antiplatelets on; teleneurology has been consulted and are following the patient closely. 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 Once patient makes some progress, she will need to be treated for H. pylori and she will need follow-up with Dr. Wetzel regarding pulmonary nodule 10 mm which was found on CT. 03/02: No acute overnight events. Dr. Hernandez has given recommendations to stop antibiotics, acyclovir, and statins (for the time being) for previous differential of diagnosis bacterial meningitis as they can negative interact with fluconazole clearance and at this point, bacterial etiology behind patient's clinical condition unlikely. Will plan to restart statin after fluconazole course ends next week. With regards to patient's untreated previously diagnosed H. pylori from 02/01/24, started triple therapy, namely protonix 40mg BID, clarithromycin 500mg BID, and amoxicillin 1g BID x14 days as per guidelines for H. pylori triple therapy treatment. Teleneurology saw the patient today and recommended routine EEG and to start aspirin 81mg PO qd, but to hold off on Plavix at this time, as Dr. Romero can't rule out fungal abscess secondary to coccidiomycosis as an etiology behind patient's condition. Lisinopril 10mg PO qd started for blood pressure control, thiamine 500mg IV BID started x2 days and will lower to 250mg IV BID x5 days afterwards. Ordered TSH, NH3, B6/B9/B12, A1c as further workup for patient's symptoms. Exam Vital Signs Temp Pulse Resp BP Pulse Ox O2 Del Method 97.6 F 83 16 142/82 H 98 Room Air 03/02/24 12:00 03/02/24 13:46 03/02/24 12:00 03/02/24 13:46 03/02/24 12:00 03/02/24 12:00 Narrative Exam Gen: Alert, aphasic, appears stated age, in no acute distress, able to respond to questions with thumbs up or down HEENT: NCAT, PERRLA, EOMI, MMM, anicteric conjunctivae, right-sided facial droop present CVS: normal S1 and S2. RRR. No M/R/G. Resp: CTA B/L. No rhonchi, rales, crackles or wheezing. Abd: soft, non-tender, non-distended. BS+ in all 4 quadrants. MSK: Limited range of motion of left extremities, no motion in left extremities. No edema or rash. Neuro: Global aphasia, eyes tracking individuals in room as they move, GCS 12 ([id number]), right-sided strength 0/5, left-sided strength 2/5, right-sided facial droop present Psych: appropriate mood and affect. Objective Labs 03/03/24 05:10 03/03/24 05:10 Labs: Laboratory Results - last 24 hr 03/02/24 03/02/24 05:19 12:00 WBC 10.5 RBC 3.74 L Hgb 11.8 L Hct 34.4 L MCV 92 MCH 31.6 MCHC 34.3 RDW Std Deviation 46.1 Plt Count 315 Neut % (Auto) 84 H Lymph % (Auto) 10 [place] % (Auto) 6 Eos % (Auto) 0 Baso % (Auto) 0 Neut # (Auto) 8.8 H Lymph # (Auto) 1.1 [place] # (Auto) 0.6 Eos # (Auto) 0.0 Baso # (Auto) 0.0 Immature Gran # (Auto) 0.03 H Absolute Nucleated RBC 0.00 Immature Gran % 0 Nucleated RBC % 0 Sodium 135 L Potassium 3.7 Chloride 106 Carbon Dioxide 25.2 Anion Gap 4 L BUN 8 L Creatinine 0.5 L Estim Creat Clear Calc 104.1 eGFR > 60 BUN/Creatinine Ratio 16 Glucose 114 H Calculated Osmolality 269 L Calcium 9.4 Ammonia 15 Vitamin B12 644 Folate 6.99 Quality Measures Quality Measures none Assessment & Plan Assessment Current Active Medications: Generic Name Dose Route Start Last Admin Trade Name Freq PRN Reason Stop Dose Admin Amoxicillin 1,000 mg 03/02/24 21:00 Amoxicillin 250 Mg Capsule PO 03/16/24 21:59 BID [facility] Aspirin 81 mg 03/01/24 13:30 03/02/24 10:04 Aspirin Ec 81 Mg Tabec PO 03/31/24 13:29 81 mg QDAY ROGER Administration Clarithromycin 500 mg 03/02/24 21:00 Clarithromycin 250 Mg Tablet PO 03/16/24 20:59 BID ROGER Enoxaparin Sodium 40 mg 02/29/24 09:00 02/29/24 09:18 Enoxaparin Sod Inj 40 Mg/0.4 Ml Syringe SC 03/14/24 08:59 40 mg QDAY ROGER Administration Fluconazole 800 mg 03/02/24 21:00 Fluconazole 100 Mg Tablet PO 03/09/24 20:59 HS ROGER Thiamine HCl 500 mg/ Sodium 105 mls @ 205 mls/hr 03/02/24 21:00 Chloride IV 03/04/24 21:00 BID ROGER Lisinopril 10 mg 03/02/24 11:15 03/02/24 13:46 Lisinopril 2.5 Mg Tablet PO 04/01/24 11:14 10 mg QDAY ROGER Administration Ondansetron HCl 4 mg 02/28/24 14:28 Ondansetron Inj 2 Mg/Ml Inj 2 Ml IV 03/29/24 14:27 Q4HR PRN NAUSEA OR VOMITING Pantoprazole Sodium 40 mg 03/02/24 21:00 Pantoprazole 40 Mg Tablet PO 03/16/24 20:59 BID ROGER Sennosides 1 tab 02/29/24 16:17 Senna Tablet PO 03/30/24 16:16 QDAY PRN CONSTIPATION Protocol Plan Neda Sauceda is a 58-year-old female with a past medical history of hypertension, hyperlipidemia, fibromyalgia, migraines, and 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 Given patient's clinical status, daughter at bedside provided history. Father called daughter stating that patient was weak to get out of bed, then son went to see patient at 10 a.m. and patient was not responding to questions. EMS was called and patient was then brought to the ED. In ED, patient was noted to have right-sided hemiparesis, right-sided facial droop, and aphasia so stroke alert was called. Initial CT head showed concern for possible SAH versus artifact. However, patient not candidate for thrombolytics given recent stroke within last month and outside of window. Of note, patient discharged 02/03 after being admitted for gastroenteritis, found to have elevated CA 125, and was told to follow-up with Dr. Wetzel outpatient but had not been able to due to insurance issues. 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 Repeat MRI with contrast demonstrated 17mm acute infarct of left basal ganglia Patient has history of Cocci IgM and IgG CSF is clear, colorless with 72 WBC and 23 RBC, 5 mononuclear WBC and 95 polynuclear WBC, glucose low at 27 and total protein elevated at 179. CSF influenza, meningitis, strep negative pending mild protein only with no bands and cocci Venogram MRI degraded study Speech therapy recommends extensive speech therapy for months PT recommends acute rehab placement - Teleneurology consulted, Dr. Romero following - ID consulted, Dr. Hernandez following - Continue aspirin 81mg PO qd - Continue Fluconazole 800mg PO HS for empiric Cocci coverage - Stopped Ampicillin, Ceftriaxone and Acyclovir per ID recommendations - Neurochecks q4h - DVT prophylaxis - Head of bed 30 degrees - Euglycemia and avoid hyperthermia - Follow-up CSF analysis - Thiamine 500mg IV BID x2 days started, after completion will transition to thiamine 250mg IV BID x5 days - Ordered lipid panel, TSH, NH3, B6/B9/B12, and A1c for further evaluation of patient's symptoms - Routine EEG ordered, results pending #H. 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 Pompa was consulted time, completed EGD and biopsy Pathology confirmed H. pylori infection Patient's family states that she was never treated for H. pylori after discharge and never followed up outpatient with PCP or Dr. Peña Wetzel was also consulted due to Elevated CA 125 and CA 19?9 pending - Started triple therapy for tx of H. pylori infection: protonix 40mg PO BID, clarithromycin 500mg PO BID, and amoxicillin 1g PO BID x 14 days - Follow-up with oncologist Dr. Wetzel outpatient for further evaluation of possible GI malignancy as seen by elevated cancer markers in serum #10mm Pulmonary Nodule 10mm pulmonary nodule right lower lobe as seen on CT chest/abdomen/pelvis during hospitalization in mid January for GI symptoms Radiology recommended at that time for 6-month follow-up CT - Follow up outpatient #Hypertension #Hyperlipidemia #Fibromyalgia #Migraines - Started home dose of lisinopril 10mg PO qd - Holding statin at this time as fluconazole has a known adverse effect of significantly increasing levels of serum statin - Continue to monitor Health maintenance: Disposition: Medsurg Diet: Cardiac diet GI prophylaxis: None indicated DVT prophylaxis: Lovenox 40mg SubQ qd Code: Full code Case disclosed with Attending Dr. Izaguirre and my senior Dr. Mata PGY3. Steven Pennington PGY1 LI discussed with and supervised the sports team marketing intern physician who took care of this patient. I personally saw and examined the patient and discussed the assessment and plan with the entire medicine team, including my attending Dr. González Izaguirre MD. I agree with the assessment and plan as documented above. Patient interviewed and examined at bedside this a.m. Acyclovir and antibiotics.. Will also discontinue statins due to affect on clearance of fluconazole. Will also start triple therapy for H. pylori. Patient was evaluated by teleneuro services who recommended to obtain an EEG and to start aspirin. Also recommended to defer Plavix at this time as fungal abscess cannot be ruled out. Started lisinopril for better blood pressure control. Patient evaluated by PT who recommended assisted facility for treatment due to patient's stroke. Patient still has right-sided paresis. Mike Mata M.D. Internal Medicine PGY-3 Attending Provider Attestation/Addendum I have examined the patient, reviewed labs and imaging findings, discussed the case with the resident(s), and reviewed entered orders. I agree with the plan of care as outlined in this note, with these additional summaries/recommendations: Patient seen at bedside. MRI brain showed 17 mm acute infract left basal ganglia. Teleneurology following. Patient started on aspirin 81 mg p.o. daily. We will defer starting statin therapy as patient is currently receiving high dose fluconazole. We will follow-up with neurology if Plavix should be resumed as there was concern of possible bleeding days prior. Echocardiogram showed normal EF and negative bubble study. Patient evaluated by PT and recommends SNF when medically cleared for discharge. Infectious disease following for concern of fungal meningitis. Pending cocci titer and empirically treating with fluconazole at this time. Antibiotics were discontinued for low suspicion of bacterial meningitis. S/P LP and gram stain showing no organisms. Patient now tolerating diet and we will start H. pylori treatment. Order TSH, B12, folate, B6, lipid panel, TSH, A1c. Follow-up outpatient for pulmonary nodule. Repeat chemistry and hematology panel in AM. Dr. Izaguirre
[2024-03-02] MEDS: THIAMINE INJ 500 MG in SODIUM CHLORIDE 0.9% 100 ML 205 MG IV (21:15)
[2024-03-02] MEDS: CLARITHROMYCIN 250 MG TABLET 500 MG PO (21:24)
[2024-03-02] MEDS: AMOXICILLIN 250 MG CAPSULE 1000 MG PO (21:24)
[2024-03-02] MEDS: FLUCONAZOLE 100 MG TABLET 800 MG PO (21:24)
[2024-03-02] MEDS: PANTOPRAZOLE 40 MG TABLET PO (21:25)
[2024-03-03] VITALS (8 sets, daily range): BP systolic 126–149; BP diastolic 73–81; PULSE 70–88; RESP 16–20; TEMP 36.1–36.4; O2SAT 98–100; BMI 24.5; BMI 12.0
[2024-03-03 06:28] LABS: Basophils % (Auto) 0 % (0-2.5); Eosinophils % (Auto) 0 % (0-10); Hemoglobin 12.6 g/dL (12.0-16.0); Immature Granulocytes % (Auto) 0 % (0-0); Immature Granulocytes Auto 0.03 Thou/mm3 (0.00-0.00); Lymphocytes # (Auto) 2.2 Thou/mm3 (1.0-4.8); Lymphocytes % (Auto) 27 % (10-50); Mean Corpuscular HGB Conc 34.1 g/dl (31.0-37.0); Mean Corpuscular Hemoglobin 31.6 pg (25.0-35.0); Mean Corpuscular Volume 93 fL (80-100); Monocytes # (Auto) 0.6 Thou/mm3 (0.0-0.8); Monocytes % (Auto) 7 % (0-12); Neutrophils # (Auto) 5.4 Thou/mm3 (1.8-7.7); Neutrophils % (Auto) 65 % (37-80); Nucleated Red Blood Cell % 0 /100 WBC (0); Platelet Count 316 Thou/mm3 (140-440); RDW Standard Deviation 47.8 fL (36.4-46.3); Red Blood Count 3.99 Miln/mm3 (4.00-5.20); White Blood Count 8.2 Thou/mm3 (3.6-11.0)
[2024-03-03 06:42] LABS: Glucose Estimated Average 105 mg/dL (80-131); Hemoglobin A1C 5.3 % Hgb (4.8-6.0)
[2024-03-03 07:05] LABS: Alanine Aminotransferase 21 U/L (10-49); Albumin, Serum 3.7 gm/dL (3.5-5.0); Albumin/Globulin Ratio 1.3 (1.2-2.2); Alkaline Phosphatase 76 U/L (46-116); Anion Gap 5 (7-16); Aspartate Amino Transferase 20 U/L (0-34); BUN/Creatinine Ratio 12 Ratio (12-20); Bilirubin,Total 0.6 mg/dL (0.3-1.2); Blood Urea Nitrogen 6 mg/dL (9-23); Calcium 9.6 mg/dL (8.3-10.6); Calcium (Corrected) 9.8 mg/dL (8.5-10.1); Carbon Dioxide 26.9 mMol/L (20.0-31.0); Cardiac Risk Estimate 2.2 RATIO (3.7-5.6); Chloride 102 mMol/L (98-107); Cholesterol 105 mg/dL (132-200); Creatinine (Component) 0.5 mg/dL (0.6-1.3); Estimated Creatinine Clearance 105.4 mL/min (>60); Globulin 2.8 gm/dL (2.3-3.5); Glucose 84 mg/dL (74-106); HDL Cholesterol 48 mg/dL (40-60); LDL Cholesterol,Calculated 35 mg/dL (0-130); Osmolality,Calculated 264 (275-295); Potassium 3.7 mMol/L (3.4-5.1); Sodium 134 mMol/L (136-145); Thyroid Stimulating Hormone 4.75 uIU/mL (0.55-4.78); Total Protein 6.5 gm/dL (5.7-8.2); Triglycerides 112 mg/dL (30-150); eGFR > 60 See Note
--- NOTE | 2024-03-03 08:10 | PC.CM ---
Per SS notes Daughter prefers [facility] acute rehab and if they decline, then [facility] .
[2024-03-03] MEDS: ASPIRIN EC 81 MG TABEC PO (08:35)
[2024-03-03] MEDS: AMOXICILLIN 250 MG CAPSULE 1000 MG PO ×2 (08:35→20:44)
[2024-03-03] MEDS: CLARITHROMYCIN 250 MG TABLET 500 MG PO ×2 (08:35→20:46)
[2024-03-03] MEDS: Lisinopril 2.5 MG TABLET 10 MG PO (08:36)
[2024-03-03] MEDS: PANTOPRAZOLE 40 MG TABLET PO ×2 (08:36→20:47)
[2024-03-03] MEDS: THIAMINE INJ 500 MG in SODIUM CHLORIDE 0.9% 100 ML 205 MG IV ×2 (09:28→20:44)
--- NOTE | 2024-03-03 13:36 | ESPR_ITS ---
Tele Neuro Progress Note Progress Note Date 03/03/24 Most Recent Vital Signs Last Vital Signs Temp 97.5 F 03/03/24 12:00 Pulse 88 03/03/24 12:00 Resp 17 03/03/24 12:00 BP 130/78 03/03/24 12:00 Pulse Ox 99 03/03/24 12:00 O2 Del Method Room Air 03/03/24 12:00 Laboratory-Coagulation Panel PT 11.5 Seconds (9.0-12.2) 02/28/24 15:43 INR 1.1 (0.9-1.3) 02/28/24 15:43 APTT 23.6 Seconds (22.0-36.0) D 02/28/24 15:43 Progress Note Narrative [facility] Tele[facility]urology Progress Note Date of Service 03/03/2024 Presentation: Based on previous neurology note(s)?? : 58 years old woman with history of hypertension, Hyperlipidemia/Hypercholesterolemia , migraines, two recent admissions for headaches and found to have right cerebellar stroke and then admission for fever and nausea. Now brought in with aphasia and right sided weakness. Interval history: CT and CTA head non acute Brain MRI without contrast No Acute Intracranial Abnormality. But very significant white matter disease Brain MRI 02/28 with contrast concern for left basal ganglia infarction MRV head limited by movement but grossly unremarkable CSF 02/27? WBC 72, RBC 23, protein 179, glucose 27 TTE: EF Normal, no PFO, no Thrombus reported 03/03/2024: nursing does not report any significant new events overnight. Impression: Altered mental status, due to encephalitis ? left basal ganglia Acute Ischemic Stroke Recommendations: (Primary Team to order Controlled Medications) Unless specifically noted I Agree with Impression and Plan from previous Neurology note/consult. 1- considering EEG but no need for Antiseizure medication yet. 2- Supportive and symptomatic treatment, electrolyte management per primary team. 3- deferring antibiotic, antifungal and antivirals to ID. 4- continue thiamine 5- continue Aspirin for now, later should resume statin when there is no interaction/ contraindication. 6- Blood Pressure goal normotension [facility] Neurologist will follow up with results. Please contact [facility] Navigator to reach me if further questions/concerns arise. Examination: awake, alert, oriented to self speech has mild aphasia, has severe dysarthria Extraocular movements intact Has right hemiplegia Patient / Family was informed the Neurology Consult would occur via Tele[facility] consult by way of interactive audio and video telecommunications and consented to receiving care in this manner. ? Patient is being evaluated for possible acute neurologic impairment and high probability of imminent or life - threatening deterioration. I spent total of 20 minutes providing care to this patient, including time for face to face visit via telemedicine, review of medical records, imaging studies and discussion of findings with providers, the patient and / or family. ? ? Dr Rachid Macdonald ? ? [facility] For Inpatient follow-up with [facility] physician please call [facility] . This is not an outpatient service. Post hospital discharge, please contact hospital directly. ? Please do not communicate with [facility] physicians via secure chat. If you have any questions, Please contact [facility]. Please call or reconsult our service if there are any clinical or diagnostic changes. ?
--- NOTE | 2024-03-03 14:34 | ESPR_ITS ---
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 Given patient's clinical status, daughter at bedside provided history. Father called daughter stating that patient was weak to get out of bed, then son went to see patient at 10 a.m. and patient was not responding to questions. EMS was called and patient was then brought to the ED. In ED, patient was noted to have right-sided hemiparesis, right-sided facial droop, and aphasia so stroke alert was called. Initial CT head showed concern for possible SAH versus artifact. However, patient not candidate for thrombolytics given recent stroke within last month and outside of window. Of note, patient discharged 02/03 after being admitted for gastroenteritis, found to have elevated CA 125, and was told to follow-up with Dr. Wetzel outpatient but had not been able to due to insurance issues. 02/28: No acute overnight events to report. Patient seen and examined in hospital bed with and daughter at bedside. Patient was difficult to arouse; however, eventually she woke up. Patient is nonverbal at this time but is able to track with his eyes and seems to understand questioning by giving a thumbs up sign. There is definite right-sided facial drooping noted when patient is asked to smile or opening her mouth. Teleneurology was consulted and the recommendation was to repeat MRI with contrast along with MRV. Telemetry neurology also recommends with discontinuing some of the empiric medications but to follow-up with ID which has also been consulted. Infectious disease recommends on discontinuing vancomycin to continue the other medications at this time. 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 03/01: No acute overnight events to report. Patient seen and examined this a.m. with mild neurologic improvement; patient is able to communicate minimally with 1-2 words but has persistent right-sided upper and lower extremity weakness, left-sided neglect and persistent facial droop. Repeat brain MRI with contrast was positive for 17 mm acute infarct of the left basal ganglia. Patient's family bedside question regarding her use of aspirin and Plavix after she got her first CVA on January 2024; they state that she took her medications as prescribed. Patient had a stroke even with antiplatelets on; teleneurology has been consulted and are following the patient closely. 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 Once patient makes some progress, she will need to be treated for H. pylori and she will need follow-up with Dr. Wetzel regarding pulmonary nodule 10 mm which was found on CT. 03/02: No acute overnight events. Dr. Hernandez has given recommendations to stop antibiotics, acyclovir, and statins (for the time being) for previous differential of diagnosis bacterial meningitis as they can negative interact with fluconazole clearance and at this point, bacterial etiology behind patient's clinical condition unlikely. Will plan to restart statin after fluconazole course ends next week. With regards to patient's untreated previously diagnosed H. pylori from 02/01/24, started triple therapy, namely protonix 40mg BID, clarithromycin 500mg BID, and amoxicillin 1g BID x14 days as per guidelines for H. pylori triple therapy treatment. Teleneurology saw the patient today and recommended routine EEG and to start aspirin 81mg PO qd, but to hold off on Plavix at this time, as Dr. Romero can not rule out fungal abscess secondary to coccidiomycosis as an etiology behind patient's condition. Lisinopril 10mg PO qd started for blood pressure control, thiamine 500mg IV BID started x2 days and will lower to 250mg IV BID x5 days afterwards. Ordered TSH, NH3, B6/B9/B12, A1c as further workup for patient's symptoms. 03/03: No acute overnight events. Patient working with speech and occupational therapy this morning, making small improvements each day. Still experiencing global aphasia and complete motorsensory loss of right half of her body, but alert, nods/shakes her head or gives thumbs up/down, and follows along in conversations. Continuining IV thiamine with last dosage tomorrow. No further recommendations from neurology. Exam Vital Signs Temp Pulse Resp BP Pulse Ox O2 Del Method 97.5 F 88 17 130/78 99 Room Air 03/03/24 12:00 03/03/24 12:00 03/03/24 12:00 03/03/24 12:00 03/03/24 12:00 03/03/24 12:00 Narrative Exam Gen: Alert, aphasic, appears stated age, in no acute distress, able to respond to questions with thumbs up or down HEENT: NCAT, PERRLA, EOMI, MMM, anicteric conjunctivae, right-sided facial droop present CVS: normal S1 and S2. RRR. No M/R/G. Resp: CTA B/L. No rhonchi, rales, crackles or wheezing. Abd: soft, non-tender, non-distended. BS+ in all 4 quadrants. MSK: Limited range of motion of left extremities, no motion in left extremities. No edema or rash. Neuro: Global aphasia, eyes tracking individuals in room as they move, GCS 12 ([id number]), right-sided strength 0/5, left-sided strength 2/5, right-sided facial droop present Psych: appropriate mood and affect. Objective Labs 03/04/24 04:40 03/04/24 04:40 Labs: Laboratory Results - last 24 hr 03/03/24 05:10 WBC 8.2 RBC 3.99 L Hgb 12.6 Hct 37.0 MCV 93 MCH 31.6 MCHC 34.1 RDW Std Deviation 47.8 H Plt Count 316 Neut % (Auto) 65 Lymph % (Auto) 27 Guthrie % (Auto) 7 Eos % (Auto) 0 Baso % (Auto) 0 Neut # (Auto) 5.4 Lymph # (Auto) 2.2 Guthrie # (Auto) 0.6 Eos # (Auto) 0.0 Baso # (Auto) 0.0 Immature Gran # (Auto) 0.03 H Absolute Nucleated RBC 0.00 Immature Gran % 0 Nucleated RBC % 0 Sodium 134 L Potassium 3.7 Chloride 102 Carbon Dioxide 26.9 Anion Gap 5 L BUN 6 L Creatinine 0.5 L Estim Creat Clear Calc 105.4 eGFR > 60 BUN/Creatinine Ratio [address] Glu mg/dL 105 Hemoglobin A1c 5.3 Calculated Osmolality 264 L Calcium 9.6 Corrected Calcium 9.8 Total Bilirubin 0.6 AST 20 ALT 21 Alkaline Phosphatase 76 Total Protein 6.5 Albumin 3.7 Globulin 2.8 Albumin/Globulin Ratio 1.3 Triglycerides 112 Cholesterol 105 L LDL Cholesterol, Calc 35 HDL Cholesterol 48 Cholesterol/HDL Ratio 2.2 L TSH 4.75 D Quality Measures Quality Measures none Assessment & Plan Assessment Current Active Medications: Generic Name Dose Route Start Last Admin Trade Name Alma PRN Reason Stop Dose Admin Amoxicillin 1,000 mg 03/02/24 21:00 03/03/24 08:35 Amoxicillin 250 Mg Capsule PO 03/16/24 21:59 1,000 mg BID ROGER Administration Aspirin 81 mg 03/01/24 13:30 03/03/24 08:35 Aspirin Ec 81 Mg Tabec PO 03/31/24 13:29 81 mg QDAY ROGER Administration Clarithromycin 500 mg 03/02/24 21:00 03/03/24 08:35 Clarithromycin 250 Mg Tablet PO 03/16/24 20:59 500 mg BID ROGER Administration Fluconazole 800 mg 03/02/24 21:00 03/02/24 21:24 Fluconazole 100 Mg Tablet PO 03/09/24 20:59 800 mg HS ROGER Administration Thiamine HCl 500 mg/ Sodium 105 mls @ 205 mls/hr 03/02/24 21:00 03/03/24 09:28 Chloride IV 03/04/24 21:00 205 mls/hr BID ROGER Administration Lisinopril 10 mg 03/02/24 11:15 03/03/24 08:36 Lisinopril 2.5 Mg Tablet PO 04/01/24 11:14 10 mg QDAY ROGER Administration Ondansetron HCl 4 mg 02/28/24 14:28 Ondansetron Inj 2 Mg/Ml Inj 2 Ml IV 03/29/24 14:27 Q4HR PRN NAUSEA OR VOMITING Pantoprazole Sodium 40 mg 03/02/24 21:00 03/03/24 08:36 Pantoprazole 40 Mg Tablet PO 03/16/24 20:59 40 mg BID ROGER Administration Sennosides 1 tab 02/29/24 16:17 Senna Tablet PO 03/30/24 16:16 QDAY PRN CONSTIPATION Protocol Plan Neda Sauceda is a 58-year-old female with a past medical history of hypertension, hyperlipidemia, fibromyalgia, migraines, and 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 Given patient's clinical status, daughter at bedside provided history. Father called daughter stating that patient was weak to get out of bed, then son went to see patient at 10 a.m. and patient was not responding to questions. EMS was called and patient was then brought to the ED. In ED, patient was noted to have right-sided hemiparesis, right-sided facial droop, and aphasia so stroke alert was called. Initial CT head showed concern for possible SAH versus artifact. However, patient not candidate for thrombolytics given recent stroke within last month and outside of window. Of note, patient discharged 02/03 after being admitted for gastroenteritis, found to have elevated CA 125, and was told to follow-up with Dr. Wetzle outpatient but had not been able to due to insurance issues. 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 Repeat MRI with contrast demonstrated 17mm acute infarct of left basal ganglia Patient has history of Cocci IgM and IgG CSF is clear, colorless with 72 WBC and 23 RBC, 5 mononuclear WBC and 95 polynuclear WBC, glucose low at 27 and total protein elevated at 179. CSF influenza, meningitis, strep negative pending mild protein only with no bands and cocci Venogram MRI degraded study Speech therapy recommends extensive speech therapy for months PT recommends acute rehab placement - Teleneurology consulted, Dr. Romero following - ID consulted, Dr. Hernandez following - Continue aspirin 81mg PO qd - Continue Fluconazole 800mg PO HS for empiric Cocci coverage - Stopped Ampicillin, Ceftriaxone and Acyclovir per ID recommendations - Neurochecks q4h - DVT prophylaxis - Head of bed 30 degrees - Euglycemia and avoid hyperthermia - Follow-up CSF analysis - Continue thiamine 250mg IV BID with last dose tomorrow - Lipid panel, TSH, NH3, B6/B9/B12, and A1c were ordered for further evaluation, all were within normal limits - Routine EEG ordered, results pending - Holding off on Plavix at this time per teleneurology's recommendations as fungal abscess can not be ruled out by current imaging #H. 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 Pompa was consulted time, completed EGD and biopsy Pathology confirmed H. pylori infection Patient's family states that she was never treated for H. pylori after discharge and never followed up outpatient with PCP or Dr. Peña Wetzle was also consulted due to Elevated CA 125 and CA 19?9 pending - Started triple therapy for tx of H. pylori infection: protonix 40mg PO BID, clarithromycin 500mg PO BID, and amoxicillin 1g PO BID x 14 days - Follow-up with oncologist Dr. Wetzel outpatient for further evaluation of possible GI malignancy as seen by elevated cancer markers in serum #10mm Pulmonary Nodule 10mm pulmonary nodule right lower lobe as seen on CT chest/abdomen/pelvis during hospitalization in mid January for GI symptoms Radiology recommended at that time for 6-month follow-up CT - Follow up outpatient #Hypertension #Hyperlipidemia #Fibromyalgia #Migraines All chronic conditions present prior to admission - Continue home dose of lisinopril 10mg PO qd - Holding statin at this time as fluconazole has a known adverse effect of significantly increasing levels of serum statin - Continue to monitor Health maintenance: Disposition: Medsur Diet: Cardiac diet GI prophylaxis: None indicated DVT prophylaxis: Lovenox 40mg SubQ qd Code: Full code Case disclosed with Attending Dr. Izaguirre and my senior Dr. Mata PGY3. Steven Pennington PGY1 LI discussed with and supervised the regulatory affairs intern physician who took care of this patient. I personally saw and examined the patient and discussed the assessment and plan with the entire medicine team, including my attending Dr. González Izaguirre MD. I agree with the assessment and plan as documented above. Patient interviewed and examined at bedside this a.m. No acute overnight events reported. Patient still with right-sided hemiparesis secondary to CVA. Will continue triple therapy for continued treatment of H. pylori. Patient will also continue to work with PT to regain right-sided function. Patient currently pending CSF cocci studies. Will continue current regimen of Diflucan for continued treatment and coverage of coccidiomycosis. Mike Mata M.D. Internal Medicine PGY-3 Attending Provider Attestation/Addendum I have examined the patient, reviewed labs and imaging findings, discussed the case with the resident(s), and reviewed entered orders. I agree with the plan of care as outlined in this note, with these additional summaries/recommendations: Patient and family seen at bedside. No acute overnight events. MRI brain showed 17 mm acute infract left basal ganglia. Teleneurology following. Patient started on aspirin 81 mg p.o. daily. We will defer starting statin therapy as patient is currently receiving high dose fluconazole although will start when able. We will follow-up with neurology if Plavix should be resumed as there was concern of possible bleeding days prior. Echocardiogram showed normal EF and negative bubble study. Patient evaluated by PT and recommends SNF when medically cleared for discharge. Infectious disease following for concern of fungal meningitis. Pending cocci titer and empirically treating with fluconazole at this time. Meningitis antibiotics were discontinued for low suspicion of bacterial meningitis. S/P LP and gram stain showing no organisms. Further CSF studies pending. Patient now tolerating diet and continue triple therapy H. pylori. Follow-up outpatient for pulmonary nodule. Repeat chemistry and hematology panel in AM. Dr. Izaguirre
[2024-03-03] MEDS: FLUCONAZOLE 100 MG TABLET 800 MG PO (20:46)
[2024-03-04] VITALS (7 sets, daily range): BP systolic 121–131; BP diastolic 69–82; PULSE 68–110; RESP 13–95; TEMP 36.2–36.6; O2SAT 95–99; BMI 21.9
[2024-03-04 06:04] LABS: Basophils % (Auto) 0 % (0-2.5); Eosinophils % (Auto) 1 % (0-10); Hematocrit 36.5 % (36.0-46.0); Hemoglobin 12.5 g/dL (12.0-16.0); Immature Granulocytes % (Auto) 1 % (0-0); Immature Granulocytes Auto 0.04 Thou/mm3 (0.00-0.00); Lymphocytes # (Auto) 2.4 Thou/mm3 (1.0-4.8); Lymphocytes % (Auto) 31 % (10-50); Mean Corpuscular HGB Conc 34.2 g/dl (31.0-37.0); Mean Corpuscular Hemoglobin 31.3 pg (25.0-35.0); Mean Corpuscular Volume 92 fL (80-100); Monocytes # (Auto) 0.7 Thou/mm3 (0.0-0.8); Monocytes % (Auto) 9 % (0-12); Neutrophils # (Auto) 4.5 Thou/mm3 (1.8-7.7); Neutrophils % (Auto) 58 % (37-80); Nucleated Red Blood Cell % 0 /100 WBC (0); Platelet Count 303 Thou/mm3 (140-440); RDW Standard Deviation 45.6 fL (36.4-46.3); Red Blood Count 3.99 Miln/mm3 (4.00-5.20); White Blood Count 7.7 Thou/mm3 (3.6-11.0)
[2024-03-04 06:24] LABS: Alanine Aminotransferase 22 U/L (10-49); Albumin, Serum 3.8 gm/dL (3.5-5.0); Albumin/Globulin Ratio 1.4 (1.2-2.2); Alkaline Phosphatase 74 U/L (46-116); Anion Gap 5 (7-16); Aspartate Amino Transferase 19 U/L (0-34); BUN/Creatinine Ratio 12 Ratio (12-20); Blood Urea Nitrogen 6 mg/dL (9-23); Calcium 9.6 mg/dL (8.3-10.6); Calcium (Corrected) 9.8 mg/dL (8.5-10.1); Carbon Dioxide 27.6 mMol/L (20.0-31.0); Chloride 97 mMol/L (98-107); Creatinine (Component) 0.5 mg/dL (0.6-1.3); Estimated Creatinine Clearance 95.8 mL/min (>60); Globulin 2.7 gm/dL (2.3-3.5); Glucose 92 mg/dL (74-106); Osmolality,Calculated 258 (275-295); Potassium 3.5 mMol/L (3.4-5.1); Sodium 130 mMol/L (136-145); Total Protein 6.5 gm/dL (5.7-8.2); eGFR > 60 See Note
[2024-03-04] MEDS: ASPIRIN EC 81 MG TABEC PO (08:23)
[2024-03-04] MEDS: AMOXICILLIN 250 MG CAPSULE 1000 MG PO ×2 (08:23→20:29)
[2024-03-04] MEDS: CLARITHROMYCIN 250 MG TABLET 500 MG PO ×2 (08:23→20:29)
[2024-03-04] MEDS: Lisinopril 2.5 MG TABLET 10 MG PO (08:24)
[2024-03-04] MEDS: PANTOPRAZOLE 40 MG TABLET PO ×2 (08:24→20:29)
--- NOTE | 2024-03-04 09:15 | PC.SS ---
SS follow up note; Patient will be discharged tomorrow, pending CSF cultures.
[2024-03-04] MEDS: THIAMINE INJ 500 MG in SODIUM CHLORIDE 0.9% 100 ML 205 MG IV ×2 (09:59→20:30)
[2024-03-04] MEDS: POTASSIUM CHLORIDE 10% 20 MEQ/15 ML UDC 40 MEQ PO (10:04)
--- NOTE | 2024-03-04 12:06 | ESPR_ITS ---
Tele Neuro Progress Note Progress Note Date 03/04/24 Most Recent Vital Signs Last Vital Signs Temp 97.1 F 03/04/24 08:00 Pulse 72 03/04/24 08:24 Resp 13 03/04/24 08:00 BP 131/71 H 03/04/24 08:24 Pulse Ox 99 03/04/24 08:00 O2 Del Method Room Air 03/04/24 08:00 Laboratory-Coagulation Panel PT 11.5 Seconds (9.0-12.2) 02/28/24 15:43 INR 1.1 (0.9-1.3) 02/28/24 15:43 APTT 23.6 Seconds (22.0-36.0) D 02/28/24 15:43 Progress Note Narrative [facility] Tele[facility]urology Progress Note Date of Service 03/04/2024 Presentation: Based on previous neurology note(s) : 58 years old woman with history of hypertension, Hyperlipidemia/Hypercholesterolemia , migraines, two recent admissions for headaches and found to have right cerebellar stroke and then admission for fever and nausea. Now brought in with aphasia and right sided weakness. Interval history: CT and CTA head non acute Brain MRI without contrast No Acute Intracranial Abnormality. But very significant white matter disease Brain MRI 02/28 with contrast concern for left basal ganglia infarction MRV head limited by movement but grossly unremarkable CSF 02/27 WBC 72, RBC 23, protein 179, glucose 27 TTE: EF Normal, no PFO, no Thrombus reported 03/03/2024: nursing does not report any significant new events overnight. 03/04: nursing does not report any significant new events overnight. Impression: Altered mental status, due to encephalitis left basal ganglia Acute Ischemic Stroke Recommendations: (Primary Team to order Controlled Medications) Unless specifically noted I Agree with Impression and Plan from previous Neurology note/consult. 1- if major fluctuation in mental status then please order routine EEG 2- Supportive and symptomatic treatment, electrolyte management per primary team. 3- deferring antibiotic, antifungal and antivirals to ID. 4- continue thiamine 5- continue Aspirin for now, later should resume statin when there is no interaction/ contraindication. 6- Blood Pressure goal normotension [facility] Neurologist will follow up with results. Please contact [facility] Navigator to reach me if further questions/concerns arise. Examination: awake, alert, oriented to self speech has aphasia, has severe dysarthria Extraocular movements intact Has right hemiplegia Patient / Family was informed the Neurology Consult would occur via Tele[facility] consult by way of interactive audio and video telecommunications and consented to receiving care in this manner. Patient is being evaluated for possible acute neurologic impairment and high probability of imminent or life - threatening deterioration. I spent total of 12 minutes providing care to this patient, including time for face to face visit via telemedicine, review of medical records, imaging studies and discussion of findings with providers, the patient and / or family. Dr Rachid Macdonald [facility] For Inpatient follow-up with [facility] physician please call [facility] . This is not an outpatient service. Post hospital discharge, please contact hospital directly. Please do not communicate with [facility] physicians via secure chat. If you have any questions, Please contact [facility]. Please call or reconsult our service if there are any clinical or diagnostic changes.
--- NOTE | 2024-03-04 13:38 | XR_ITS ---
Examination: CT brain head without contrast. 2-D sagittal coronal reconstructions Date and time of exam:March 04, 2024 1505 hrs. Comparison February 28, 2024,. Indications: CVA, onset focal neurologic deficit 3 days ago CTDI: vol (mGy):44.3 DLP: (mGycm):864 Technique: Multiple CT axial sections of the brain have been obtained, 5 mm slice thickness. Contrast has not been administered. 2-D sagittal, coronal reconstructions have been obtained Low dose protocols were performed. One or more of the following dose reduction techniques were used; automated exposure control, adjustment of the mA and/or KV according to patient size, use of iterative reconstruction technique. Findings: No significant ventricular enlargement. There remains hyperdensity in the right horizontal sylvian fissure image 28. No mass effect or midline shift Basal cisterns are not remarkable. Fourth ventricle is midline. Cranial vault intact. Impression: Findings remain suspicious for subarachnoid hemorrhage in the right horizontal sylvian cistern Consider diagnostic lumbar puncture follow-up
--- NOTE | 2024-03-04 13:55 | PD.RESPRO ---
Documentation for date of: 03/04/24 Subjective Subjective Interval history: 03/04/2024: No acute overnight events to report. Patient seen and examined in hospital bed with difficulty verbalizing; which is a new finding from previous days. As such, CT of head/brain without contrast has been ordered which showed suspicions for a subarachnoid hemorrhage still present in the right horizontal sylvian cistern and recommendations to get diagnostic lumbar puncture. Patient has had lumbar puncture which did not show any blood; thus, clinically suspicion remains low for subarachnoid hemorrhage. Will order a hypercoagulable order set as the patient developed a stroke even while being on aspirin and Plavix. Teleneurology following; appreciate recommendations regarding starting Plavix or not. Will continue fluconazole treatment for possible cocci meningitis/abscess; pending ID recommendations and cocci CSF studies. Patient will continue to be treated for H. pylori. Exam Vital Signs Temp Pulse Resp BP Pulse Ox O2 Del Method 98 F 75 95 H 124/75 95 Room Air 03/04/24 12:00 03/04/24 12:00 03/04/24 12:00 03/04/24 12:00 03/04/24 12:00 03/04/24 12:00 Narrative Exam Gen: Alert, aphasic, appears stated age, in no acute distress, able to respond to questions with thumbs up or down HEENT: NCAT, PERRLA, EOMI, MMM, anicteric conjunctivae, right-sided facial droop present CVS: normal S1 and S2. RRR. No M/R/G. Resp: CTA B/L. No rhonchi, rales, crackles or wheezing. Abd: soft, non-tender, non-distended. BS+ in all 4 quadrants. MSK: Limited range of motion of left extremities, no motion in left extremities. No edema or rash. Neuro: Global aphasia, eyes tracking individuals in room as they move, GCS 12 ([id number]), right-sided strength 0/5, left-sided strength 2/5, right-sided facial droop present Objective Labs 03/04/24 04:40 03/04/24 04:40 Labs: Laboratory Results - last 24 hr 03/04/24 04:40 WBC 7.7 RBC 3.99 L Hgb 12.5 Hct 36.5 MCV 92 MCH 31.3 MCHC 34.2 RDW Std Deviation 45.6 Plt Count 303 Neut % (Auto) 58 Lymph % (Auto) 31 [place] % (Auto) 9 Eos % (Auto) 1 Baso % (Auto) 0 Neut # (Auto) 4.5 Lymph # (Auto) 2.4 [place] # (Auto) 0.7 Eos # (Auto) 0.0 Baso # (Auto) 0.0 Immature Gran # (Auto) 0.04 H Absolute Nucleated RBC 0.00 Immature Gran % 1 H Nucleated RBC % 0 Sodium 130 L Potassium 3.5 Chloride 97 L Carbon Dioxide 27.6 Anion Gap 5 L BUN 6 L Creatinine 0.5 L Estim Creat Clear Calc 95.8 eGFR > 60 BUN/Creatinine Ratio 12 Glucose 92 Calculated Osmolality 258 L Calcium 9.6 Corrected Calcium 9.8 Total Bilirubin 1.0 AST 19 ALT 22 Alkaline Phosphatase 74 Total Protein 6.5 Albumin 3.8 Globulin 2.7 Albumin/Globulin Ratio 1.4 Quality Measures Quality Measures none Assessment & Plan Assessment Current Active Medications: Generic Name Dose Route Start Last Admin Trade Name Freq PRN Reason Stop Dose Admin Amoxicillin 1,000 mg 03/02/24 21:00 03/04/24 08:23 Amoxicillin 250 Mg Capsule PO 03/16/24 21:59 1,000 mg BID ROGER Administration Aspirin 81 mg 03/01/24 13:30 03/04/24 08:23 Aspirin Ec 81 Mg Tabec PO 03/31/24 13:29 81 mg QDAY ROGER Administration Clarithromycin 500 mg 03/02/24 21:00 03/04/24 08:23 Clarithromycin 250 Mg Tablet PO 03/16/24 20:59 500 mg BID ROGER Administration Fluconazole 800 mg 03/02/24 21:00 03/03/24 20:46 Fluconazole 100 Mg Tablet PO 03/09/24 20:59 800 mg HS ROGER Administration Thiamine HCl 500 mg/ Sodium 105 mls @ 205 mls/hr 03/02/24 21:00 03/04/24 09:59 Chloride IV 03/04/24 21:00 205 mls/hr BID ROGER Administration Lisinopril 10 mg 03/02/24 11:15 03/04/24 08:24 Lisinopril 2.5 Mg Tablet PO 04/01/24 11:14 10 mg QDAY ROGER Administration Ondansetron HCl 4 mg 02/28/24 14:28 Ondansetron Inj 2 Mg/Ml Inj 2 Ml IV 12/12/24 14:27 Q4HR PRN NAUSEA OR VOMITING Pantoprazole Sodium 40 mg 03/02/24 21:00 03/04/24 08:24 Pantoprazole 40 Mg Tablet PO 03/16/24 20:59 40 mg BID ROGER Administration Sennosides 1 tab 02/29/24 16:17 Senna Tablet PO 03/30/24 16:16 QDAY PRN CONSTIPATION Protocol Plan 58-year-old female with a past medical history of hypertension, hyperlipidemia, fibromyalgia, migraines, and 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 Given patient's clinical status, daughter at bedside provided history. Father called daughter stating that patient was weak to get out of bed, then son went to see patient at 10 a.m. and patient was not responding to questions. EMS was called and patient was then brought to the ED. In ED, patient was noted to have right-sided hemiparesis, right-sided facial droop, and aphasia so stroke alert was called. Initial CT head showed concern for possible SAH versus artifact. However, patient not candidate for thrombolytics given recent stroke within last month and outside of window. Of note, patient discharged 02/03 after being admitted for gastroenteritis, found to have elevated CA 125, and was told to follow-up with Dr. Wetzel outpatient but had not been able to due to insurance issues. 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 Repeat MRI with contrast demonstrated 17mm acute infarct of left basal ganglia Patient has history of Cocci IgM and IgG CSF is clear, colorless with 72 WBC and 23 RBC, 5 mononuclear WBC and 95 polynuclear WBC, glucose low at 27 and total protein elevated at 179. CSF influenza, meningitis, strep negative pending mild protein only with no bands and cocci Venogram MRI degraded study Speech therapy recommends extensive speech therapy for months PT recommends acute rehab placement Lipid panel, TSH, NH3, B6/B9/B12, and A1c were ordered for further evaluation, all were within normal limits Repeat CT Head/Brain findings remained suspicious for SAH; however LP was negative for blood (low RBC count) and was clear Plan: Teleneurology consulted and following ID consulted, Dr. Hernandez following Continue aspirin 81mg PO qd Continue Fluconazole 800mg PO HS for empiric Cocci coverage Neurochecks q4h DVT prophylaxis Head of bed 30 degrees Euglycemia and avoid hyperthermia Follow-up CSF analysis Continue thiamine 250mg IV BID with last dose tomorrow Holding off on Plavix at this time per teleneurology's recommendations as fungal abscess can not be ruled out by current imaging Hypercoagulable workup sent; patient developed stroke while on asp/plavix (homocysteine, protein c/s, factor V leiden, fibrinogen) #H. 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 Pompa was consulted time, completed EGD and biopsy Pathology confirmed H. pylori infection Patient's family states that she was never treated for H. pylori after discharge and never followed up outpatient with PCP or Dr. Peña Wetzel was also consulted due to Elevated CA 125 and CA 19?9 pending Plan: Continue triple therapy for tx of H. pylori infection: protonix 40mg PO BID, clarithromycin 500mg PO BID, and amoxicillin 1g PO BID x 14 days Follow-up with oncologist Dr. Wetzel outpatient for further evaluation of possible GI malignancy as seen by elevated cancer markers in serum #10mm Pulmonary Nodule 10mm pulmonary nodule right lower lobe as seen on CT chest/abdomen/pelvis during hospitalization in mid January for GI symptoms Radiology recommended at that time for 6-month follow-up CT Plan: Follow up outpatient for repeat imaging #Hypertension #Hyperlipidemia #Fibromyalgia #Migraines All chronic conditions present prior to admission Plan: Continue home dose of lisinopril 10mg PO qd Holding statin at this time as fluconazole has a known adverse effect of significantly increasing levels of serum statin Continue to monitor Health Maintenance: Lines: PIV Diet: Cardiac GI prophylaxis: None indicated DVT prophylaxis: Lovenox 40mg SubQ qd Disp: Pending CSF Cocci studies; will require extensive PT/OT and Speech therapy outpatient Code: Full code Patient seen and examined with attending Dr. Dmitriy Ley, PGY-1 Attending Provider Attestation/Addendum I have examined the patient, reviewed labs and imaging findings, discussed the case with the resident(s), and reviewed entered orders. I agree with the plan of care as outlined in this note, with these additional summaries/recommendations: Patient and family seen at bedside. No acute overnight events. MRI brain showed 17 mm acute infract left basal ganglia. Teleneurology following. Patient started on aspirin 81 mg p.o. daily. We will defer starting statin therapy as patient is currently receiving high dose fluconazole although will start when able. We will follow-up with neurology if Plavix should be resumed as there was concern of possible bleeding days prior although this was ruled out with MRI. Echocardiogram showed normal EF and negative bubble study. Patient evaluated by PT and recommends SNF when medically cleared for discharge. Infectious disease following for concern of fungal meningitis. Pending cocci titer and empirically treating with fluconazole at this time. Meningitis antibiotics were discontinued for low suspicion of bacterial meningitis. S/P LP and gram stain showing no organisms. Further CSF studies pending. Patient now tolerating diet and continue triple therapy H. pylori. Follow-up outpatient for pulmonary nodule. Repeat chemistry and hematology panel in AM. Dr. Izaguirre
[2024-03-04 16:26] LABS: Fibrinogen 396 mg/dL (175-375)
[2024-03-04] MEDS: FLUCONAZOLE 100 MG TABLET 800 MG PO (20:29)
[2024-03-05] VITALS (10 sets, daily range): BP systolic 104–122; BP diastolic 62–75; PULSE 64–84; RESP 15–18; TEMP 36.3–37.1; O2SAT 95–98; BMI 21.7; BMI 12.0
[2024-03-05 06:01] LABS: Basophils % (Auto) 0 % (0-2.5); Eosinophils # (Auto) 0.1 Thou/mm3 (0.0-0.5); Eosinophils % (Auto) 2 % (0-10); Hematocrit 34.7 % (36.0-46.0); Hemoglobin 12.1 g/dL (12.0-16.0); Immature Granulocytes % (Auto) 1 % (0-0); Immature Granulocytes Auto 0.04 Thou/mm3 (0.00-0.00); Lymphocytes # (Auto) 2.3 Thou/mm3 (1.0-4.8); Lymphocytes % (Auto) 29 % (10-50); Mean Corpuscular HGB Conc 34.9 g/dl (31.0-37.0); Mean Corpuscular Hemoglobin 32.1 pg (25.0-35.0); Mean Corpuscular Volume 92 fL (80-100); Monocytes # (Auto) 0.7 Thou/mm3 (0.0-0.8); Monocytes % (Auto) 9 % (0-12); Neutrophils # (Auto) 4.7 Thou/mm3 (1.8-7.7); Neutrophils % (Auto) 60 % (37-80); Nucleated Red Blood Cell % 0 /100 WBC (0); Platelet Count 321 Thou/mm3 (140-440); RDW Standard Deviation 45.9 fL (36.4-46.3); Red Blood Count 3.77 Miln/mm3 (4.00-5.20); White Blood Count 7.8 Thou/mm3 (3.6-11.0)
[2024-03-05 06:54] LABS: Alanine Aminotransferase 30 U/L (10-49); Albumin, Serum 3.8 gm/dL (3.5-5.0); Albumin/Globulin Ratio 1.4 (1.2-2.2); Alkaline Phosphatase 74 U/L (46-116); Anion Gap 7 (7-16); Aspartate Amino Transferase 17 U/L (0-34); BUN/Creatinine Ratio 14 Ratio (12-20); Bilirubin,Total 1.1 mg/dL (0.3-1.2); Blood Urea Nitrogen 7 mg/dL (9-23); Calcium 9.3 mg/dL (8.3-10.6); Calcium (Corrected) 9.5 mg/dL (8.5-10.1); Carbon Dioxide 23.9 mMol/L (20.0-31.0); Chloride 98 mMol/L (98-107); Creatinine (Component) 0.5 mg/dL (0.6-1.3); Estimated Creatinine Clearance 95.8 mL/min (>60); Globulin 2.7 gm/dL (2.3-3.5); Glucose 98 mg/dL (74-106); Osmolality,Calculated 256 (275-295); Potassium 3.4 mMol/L (3.4-5.1); Sodium 129 mMol/L (136-145); Total Protein 6.5 gm/dL (5.7-8.2); eGFR > 60 See Note
[2024-03-05] MEDS: ASPIRIN EC 81 MG TABEC PO (08:47)
[2024-03-05] MEDS: AMOXICILLIN 250 MG CAPSULE 1000 MG PO ×2 (08:47→20:09)
[2024-03-05] MEDS: CLARITHROMYCIN 250 MG TABLET 500 MG PO ×2 (08:48→20:17)
[2024-03-05] MEDS: Lisinopril 2.5 MG TABLET 10 MG PO (08:48)
[2024-03-05] MEDS: PANTOPRAZOLE 40 MG TABLET PO ×2 (08:48→20:08)
--- NOTE | 2024-03-05 10:26 | PD.IDPROG ---
Subjective Subjective Interval history: no word from [facility]. i called them. called send out too. afebrile. on rx Exam Vital Signs Temp Pulse Resp BP Pulse Ox O2 Del Method 98.0 F 74 15 122/72 98 Room Air 03/05/24 07:40 03/05/24 08:48 03/05/24 07:40 03/05/24 08:48 03/05/24 07:40 03/05/24 07:40 Narrative Exam limited visit Objective - Internal Medicine Labs 03/05/24 04:25 03/05/24 04:25 Labs: Laboratory Results - last 24 hr 03/04/24 03/05/24 15:40 04:25 WBC 7.8 RBC 3.77 L Hgb 12.1 Hct 34.7 L MCV 92 MCH 32.1 MCHC 34.9 RDW Std Deviation 45.9 Plt Count 321 Neut % (Auto) 60 Lymph % (Auto) 29 [place] % (Auto) 9 Eos % (Auto) 2 Baso % (Auto) 0 Neut # (Auto) 4.7 Lymph # (Auto) 2.3 [place] # (Auto) 0.7 Eos # (Auto) 0.1 Baso # (Auto) 0.0 Immature Gran # (Auto) 0.04 H Absolute Nucleated RBC 0.00 Immature Gran % 1 H Nucleated RBC % 0 Fibrinogen 396 H Sodium 129 L Potassium 3.4 Chloride 98 Carbon Dioxide 23.9 Anion Gap 7 BUN 7 L Creatinine 0.5 L Estim Creat Clear Calc 95.8 eGFR > 60 BUN/Creatinine Ratio 14 Glucose 98 Calculated Osmolality 256 L Calcium 9.3 Corrected Calcium 9.5 Total Bilirubin 1.1 AST 17 ALT 30 Alkaline Phosphatase 74 Total Protein 6.5 Albumin 3.8 Globulin 2.7 Albumin/Globulin Ratio 1.4 Assessment & Plan A&P Narrative encephalitis, cause pending hx of cocci. original dx january 2024: 1:16 serum. sudden onset of sx with rt pippa more c/w cva and less so with cocci on rx for h pylori dx 02/02/24 by bx. no pud noted on same egd study called [facility] and send out lab. nothing on file. may have been lost in transition or have a different name attached. with no meningeal findings, will stop abx and acv and statin as that can interact with azole and if cocci neg and we stop the flucon next week, then ok to restart the statin after that.will look in superficially on tue. Time Spent With Patient Time: Total time spent is greater than 50% in coordination of care (as documented) at patient's floor/unit and/or counseling patient:
--- NOTE | 2024-03-05 10:38 | PD.IDPROG ---
Subjective Subjective Interval history: called [facility]. csf appears pos, but no cf titer. serum pos too. Exam Vital Signs Temp Pulse Resp BP Pulse Ox O2 Del Method 98.0 F 74 15 122/72 98 Room Air 03/05/24 07:40 03/05/24 08:48 03/05/24 07:40 03/05/24 08:48 03/05/24 07:40 03/05/24 07:40 Objective - Internal Medicine Labs 03/05/24 04:25 03/05/24 04:25 Labs: Laboratory Results - last 24 hr 03/04/24 03/05/24 15:40 04:25 WBC 7.8 RBC 3.77 L Hgb 12.1 Hct 34.7 L MCV 92 MCH 32.1 MCHC 34.9 RDW Std Deviation 45.9 Plt Count 321 Neut % (Auto) 60 Lymph % (Auto) 29 [place] % (Auto) 9 Eos % (Auto) 2 Baso % (Auto) 0 Neut # (Auto) 4.7 Lymph # (Auto) 2.3 [place] # (Auto) 0.7 Eos # (Auto) 0.1 Baso # (Auto) 0.0 Immature Gran # (Auto) 0.04 H Absolute Nucleated RBC 0.00 Immature Gran % 1 H Nucleated RBC % 0 Fibrinogen 396 H Sodium 129 L Potassium 3.4 Chloride 98 Carbon Dioxide 23.9 Anion Gap 7 BUN 7 L Creatinine 0.5 L Estim Creat Clear Calc 95.8 eGFR > 60 BUN/Creatinine Ratio 14 Glucose 98 Calculated Osmolality 256 L Calcium 9.3 Corrected Calcium 9.5 Total Bilirubin 1.1 AST 17 ALT 30 Alkaline Phosphatase 74 Total Protein 6.5 Albumin 3.8 Globulin 2.7 Albumin/Globulin Ratio 1.4 Assessment & Plan A&P Narrative encephalitis, cause pending hx of cocci. original dx january 2024: 1:16 serum. sudden onset of sx with rt pippa more c/w cva and less so with cocci on rx for h pylori dx 02/02/24 by bx. no pud noted on same egd study called [facility] and send out lab. nothing on file. may have been lost in transition or have a different name attached. with no meningeal findings, will stop abx and acv and statin as that can interact with azole and if cocci neg and we stop the flucon next week, then ok to restart the statin after that.will look in superficially on tue. Time Spent With Patient Time: Total time spent is greater than 50% in coordination of care (as documented) at patient's floor/unit and/or counseling patient:
--- NOTE | 2024-03-05 10:51 | PC.SS ---
Follow up note: SS provided [facility] acute rehab with ID update rec's. Still pending labs.
--- NOTE | 2024-03-05 10:59 | PD.TNEUROPRO ---
Tele Neuro Progress Note Progress Note Date 03/05/24 Most Recent Vital Signs Last Vital Signs Temp 98.0 F 03/05/24 07:40 Pulse 74 03/05/24 08:48 Resp 15 03/05/24 07:40 BP 122/72 03/05/24 08:48 Pulse Ox 98 03/05/24 07:40 O2 Del Method Room Air 03/05/24 07:40 Laboratory-Coagulation Panel PT 11.5 Seconds (9.0-12.2) 02/28/24 15:43 INR 1.1 (0.9-1.3) 02/28/24 15:43 APTT 23.6 Seconds (22.0-36.0) D 02/28/24 15:43 Fibrinogen 396 mg/dL (175-375) H 03/04/24 15:40 Progress Note Narrative [facility] Tele[facility]urology Progress Note Date of Service 03/05/2024 Presentation: Based on previous neurology note(s) : 58 years old woman with history of hypertension, Hyperlipidemia/Hypercholesterolemia , migraines, two recent admissions for headaches and found to have right cerebellar stroke and then admission for fever and nausea. Now brought in with aphasia and right sided weakness. Interval history: CT and CTA head non acute Brain MRI without contrast No Acute Intracranial Abnormality. But very significant white matter disease Brain MRI 02/28 with contrast concern for left basal ganglia infarction MRV head limited by movement but grossly unremarkable CSF 02/27 WBC 72, RBC 23, protein 179, glucose 27 TTE: EF Normal, no PFO, no Thrombus reported 03/03/2024: nursing does not report any significant new events overnight. 03/04: nursing does not report any significant new events overnight. 03/05: head CT yesterday still concerning for subarachnoid hemorrhage. Impression: Altered mental status, due to encephalitis left basal ganglia Acute Ischemic Stroke Recommendations: (Primary Team to order Controlled Medications) Unless specifically noted I Agree with Impression and Plan from previous Neurology note/consult. 1- 03/05 I ordered EEG as family has noticed she has not been speaking well since 03/04/24 2- Supportive and symptomatic treatment, electrolyte management per primary team. 3- deferring antibiotic, antifungal and antivirals to ID. 4- continue thiamine 5- given continued concern for SAH (despite negative brain MRI and no significant blood on initial CSF) I recommend repeating LP by IR, I will hold aspirin for now (not for LP but for concern for SAH), should check CSF for concerns for SAH and save additional sample for ID. 6- Blood Pressure goal normotension [facility] Neurologist will follow up with results. Please contact [facility] Navigator to reach me if further questions/concerns arise. Examination: awake, alert, oriented to self speech has significant aphasia, Extraocular movements intact Has right hemiplegia Patient / Family was informed the Neurology Consult would occur via Tele[facility] consult by way of interactive audio and video telecommunications and consented to receiving care in this manner. Patient is being evaluated for possible acute neurologic impairment and high probability of imminent or life - threatening deterioration. I spent total of 20 minutes providing care to this patient, including time for face to face visit via telemedicine, review of medical records, imaging studies and discussion of findings with providers, the patient and / or family. Dr Rachid Macdonald [facility] For Inpatient follow-up with [facility] physician please call [facility] . This is not an outpatient service. Post hospital discharge, please contact hospital directly. Please do not communicate with [facility] physicians via secure chat. If you have any questions, Please contact [facility]. Please call or reconsult our service if there are any clinical or diagnostic changes.
--- NOTE | 2024-03-05 11:13 | ESPR_ITS ---
Addendum Progress Note Addendum Date of report being addended: 03/05/24 Narrative: to have daron monique to repeat csf cocci as the test at [facility] remains pending
--- NOTE | 2024-03-05 13:35 | ESPR_ITS ---
<Statement entered by Lois Santiago MD - 03/06/24 05:52> I discussed with and supervised the product management intern physician who took care of this patient. I personally saw and examined the patient and discussed the assessment and plan with the entire medicine team, including my attending Dr. Izaguirre, I agree with most of the assessment and plan as documented below Lois Santiago M.D. PGY-2 Documentation for date of: 03/05/24 Subjective Subjective Interval history: 03/05/2024: No acute overnight events to report. Patient seen and examined in hospital bed continuing to make incremental progress; however, still has difficulty ambulating right-sided upper and lower extremities, left-sided extremities slightly better. Patient able to verbalize very slowly with a couple words when spoken to in [place]ese. Teleneurology is following the patient; they have recommended repeat LP which will be completed tomorrow (03/06) secondary to CT results which show still persistent subarachnoid hemorrhage. Our suspicions for an actual subarachnoid hemorrhage remain low as the patient had an lumbar puncture with did not show any signs of bleeding. Cocci CSF samples have been sent to [facility] and they are pending results per laboratory senior outside sales representative. Will continue to monitor for any acute changes. Update: IR team would not like to proceed with the LP as an LP was already completed post-CT SAH finding. There was no sign of bleeding from CSF studies at that time; thus, per IR team acquiring another LP would be redundant and risky at this time. Exam Vital Signs Temp Pulse Resp BP Pulse Ox O2 Del Method 97.4 F 64 18 104/62 98 Room Air 03/05/24 11:34 03/05/24 12:00 03/05/24 11:34 03/05/24 11:34 03/05/24 11:34 03/05/24 11:34 Narrative Exam Gen: Alert, aphasic, appears stated age, in no acute distress, able to respond to questions with thumbs up or down HEENT: NCAT, PERRLA, EOMI, MMM, anicteric conjunctivae, right-sided facial droop present CVS: normal S1 and S2. RRR. No M/R/G. Resp: CTA B/L. No rhonchi, rales, crackles or wheezing. Abd: soft, non-tender, non-distended. BS+ in all 4 quadrants. MSK: Limited range of motion of extremities, no motion in right extremities. No edema or rash. Neuro: Global aphasia, eyes tracking individuals in room as they move, GCS 12 ([id number]), right-sided strength 0/5, left-sided strength 2/5, right-sided facial droop present Objective Labs 03/05/24 04:25 03/05/24 04:25 Labs: Laboratory Results - last 24 hr 03/04/24 03/05/24 15:40 04:25 WBC 7.8 RBC 3.77 L Hgb 12.1 Hct 34.7 L MCV 92 MCH 32.1 MCHC 34.9 RDW Std Deviation 45.9 Plt Count 321 Neut % (Auto) 60 Lymph % (Auto) 29 Ware % (Auto) 9 Eos % (Auto) 2 Baso % (Auto) 0 Neut # (Auto) 4.7 Lymph # (Auto) 2.3 Ware # (Auto) 0.7 Eos # (Auto) 0.1 Baso # (Auto) 0.0 Immature Gran # (Auto) 0.04 H Absolute Nucleated RBC 0.00 Immature Gran % 1 H Nucleated RBC % 0 Fibrinogen 396 H Sodium 129 L Potassium 3.4 Chloride 98 Carbon Dioxide 23.9 Anion Gap 7 BUN 7 L Creatinine 0.5 L Estim Creat Clear Calc 95.8 eGFR > 60 BUN/Creatinine Ratio 14 Glucose 98 Calculated Osmolality 256 L Calcium 9.3 Corrected Calcium 9.5 Total Bilirubin 1.1 AST 17 ALT 30 Alkaline Phosphatase 74 Total Protein 6.5 Albumin 3.8 Globulin 2.7 Albumin/Globulin Ratio 1.4 Quality Measures Quality Measures none Assessment & Plan Assessment Current Active Medications: Generic Name Dose Route Start Last Admin Trade Name Freq PRN Reason Stop Dose Admin Amoxicillin 1,000 mg 03/02/24 21:00 03/05/24 08:47 Amoxicillin 250 Mg Capsule PO 03/16/24 21:59 1,000 mg BID ROGER Administration Aspirin 81 mg 03/01/24 13:30 03/05/24 08:47 Aspirin Ec 81 Mg Tabec PO 03/31/24 13:29 81 mg QDAY ROGER Administration Clarithromycin 500 mg 03/02/24 21:00 03/05/24 08:48 Clarithromycin 250 Mg Tablet PO 03/16/24 20:59 500 mg BID ROGER Administration Fluconazole 800 mg 03/02/24 21:00 03/04/24 20:29 Fluconazole 100 Mg Tablet PO 03/09/24 20:59 800 mg HS ROGER Administration Lisinopril 10 mg 03/02/24 11:15 03/05/24 08:48 Lisinopril 2.5 Mg Tablet PO 04/01/24 11:14 10 mg QDAY ROGER Administration Ondansetron HCl 4 mg 02/28/24 14:28 Ondansetron Inj 2 Mg/Ml Inj 2 Ml IV 03/29/24 14:27 Q4HR PRN NAUSEA OR VOMITING Pantoprazole Sodium 40 mg 03/02/24 21:00 03/05/24 08:48 Pantoprazole 40 Mg Tablet PO 03/16/24 20:59 40 mg BID ROGER Administration Sennosides 1 tab 02/29/24 16:17 Senna Tablet PO 03/30/24 16:16 QDAY PRN CONSTIPATION Protocol Plan 58-year-old female with a past medical history of hypertension, hyperlipidemia, fibromyalgia, migraines, and 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 Given patient's clinical status, daughter at bedside provided history. Father called daughter stating that patient was weak to get out of bed, then son went to see patient at 10 a.m. and patient was not responding to questions. EMS was called and patient was then brought to the ED. In ED, patient was noted to have right-sided hemiparesis, right-sided facial droop, and aphasia so stroke alert was called. Initial CT head showed concern for possible SAH versus artifact. However, patient not candidate for thrombolytics given recent stroke within last month and outside of window. Of note, patient discharged 02/03 after being admitted for gastroenteritis, found to have elevated CA 125, and was told to follow-up with Dr. Wetzel outpatient but had not been able to due to insurance issues. 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 Repeat MRI with contrast demonstrated 17mm acute infarct of left basal ganglia Patient has history of Cocci IgM and IgG CSF is clear, colorless with 72 WBC and 23 RBC, 5 mononuclear WBC and 95 polynuclear WBC, glucose low at 27 and total protein elevated at 179. CSF influenza, meningitis, strep negative pending mild protein only with no bands and cocci Venogram MRI degraded study Speech therapy recommends extensive speech therapy for months PT recommends acute rehab placement Lipid panel, TSH, NH3, B6/B9/B12, and A1c were ordered for further evaluation, all were within normal limits Repeat CT Head/Brain findings remained suspicious for SAH; however LP was negative for blood (low RBC count) and was clear Plan: Teleneurology consulted and following ID consulted, Dr. Hernandez following Continue aspirin 81mg PO qd Continue Fluconazole 800mg PO HS for empiric Cocci coverage Neurochecks q4h DVT prophylaxis Head of bed 30 degrees Euglycemia and avoid hyperthermia Follow-up CSF analysis Holding off on Plavix at this time per teleneurology's recommendations as fungal abscess can not be ruled out by current imaging Hypercoagulable workup sent; patient developed stroke while on asp/plavix (homocysteine, protein c/s, factor V leiden, fibrinogen) #H. 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 Pompa was consulted time, completed EGD and biopsy Pathology confirmed H. pylori infection Patient's family states that she was never treated for H. pylori after discharge and never followed up outpatient with PCP or Dr. Peña Wetzel was also consulted due to Elevated CA 125 and CA 19?9 pending Plan: Continue triple therapy for tx of H. pylori infection: protonix 40mg PO BID, clarithromycin 500mg PO BID, and amoxicillin 1g PO BID x 14 days Follow-up with oncologist Dr. Wetzel outpatient for further evaluation of possible GI malignancy as seen by elevated cancer markers in serum #10mm Pulmonary Nodule 10mm pulmonary nodule right lower lobe as seen on CT chest/abdomen/pelvis during hospitalization in mid January for GI symptoms Radiology recommended at that time for 6-month follow-up CT Plan: Follow up outpatient for repeat imaging #Hypertension #Hyperlipidemia #Fibromyalgia #Migraines All chronic conditions present prior to admission Plan: Continue home dose of lisinopril 10mg PO qd Holding statin at this time as fluconazole has a known adverse effect of significantly increasing levels of serum statin Continue to monitor Health Maintenance: Lines: PIV Diet: Cardia, NPO at midnight (meds OK with sips of water) GI prophylaxis: None indicated DVT prophylaxis: Lovenox 40mg SubQ qd Disp: Pending CSF Cocci studies; will require extensive PT/OT and Speech therapy outpatient Code: Full code Patient seen and examined with attending Dr. Izaguirre and senior resident Dr. Pamela Ley, PGY-1 Attending Provider Attestation/Addendum I have examined the patient, reviewed labs and imaging findings, discussed the case with the resident(s), and reviewed entered orders. I agree with the plan of care as outlined in this note, with these additional summaries/recommendations: Patient and family seen at bedside. No acute overnight events. Patient noted to have decreased speech yesterday and repeat head CT was ordered which again showed suspicion for subarachnoid hemorrhage in the right horizontal sylvian cistern. Patient completed MRI and LP previously which was negative for evidence of SAH. It is possible patient could have hemorrhagic conversion although suspicion is low at this time. We will repeat lumbar puncture to evaluate for blood and repeat CSF studies. Neurology ordered EEG. MRI brain showed 17 mm acute infract left basal ganglia. Teleneurology following. Patient started on aspirin 81 mg p.o. daily which has been placed on hold for now for concern of SAH. We will defer starting statin therapy as patient is currently receiving high dose fluconazole although will start when able. Echocardiogram showed normal EF and negative bubble study. Patient evaluated by PT and recommends SNF when medically cleared for discharge. 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 Continue fluconazole. Meningitis antibiotics were discontinued for low suspicion of bacterial meningitis. S/P LP and gram stain showing no organisms. Further CSF studies pending & repeat CSF studies to be sent. Patient tolerating diet and continue triple therapy H. pylori. Follow-up outpatient for pulmonary nodule. Repeat chemistry and hematology panel in AM. Dr. Izaguirre
--- NOTE | 2024-03-05 16:49 | RESP.EEG ---
EEG WAS COMPLETED AND READY FOR REVIEW.
--- NOTE | 2024-03-05 18:28 | PC.NURSE ---
Attempted to call Dr. Hartman x1, Dr. Ley x1, Dr. Mata/Dr. Santiago x1, Dr. Izaguirre x1, Dr. Jarod Johnson x1, to ask if patient was stable for downgrade to Med/Tele. No answer.
[2024-03-05] MEDS: FLUCONAZOLE 100 MG TABLET 800 MG PO (20:08)
[2024-03-06] VITALS (11 sets, daily range): BP systolic 105–123; BP diastolic 61–72; PULSE 68–75; RESP 14–20; TEMP 36.3–36.8; O2SAT 95–98; BMI 21.6; BMI 12.0
[2024-03-06 05:59] LABS: Basophils % (Auto) 1 % (0-2.5); Eosinophils # (Auto) 0.1 Thou/mm3 (0.0-0.5); Eosinophils % (Auto) 2 % (0-10); Hematocrit 33.6 % (36.0-46.0); Hemoglobin 11.7 g/dL (12.0-16.0); Immature Granulocytes % (Auto) 1 % (0-0); Immature Granulocytes Auto 0.05 Thou/mm3 (0.00-0.00); Lymphocytes # (Auto) 1.9 Thou/mm3 (1.0-4.8); Lymphocytes % (Auto) 23 % (10-50); Mean Corpuscular HGB Conc 34.8 g/dl (31.0-37.0); Mean Corpuscular Hemoglobin 31.6 pg (25.0-35.0); Mean Corpuscular Volume 91 fL (80-100); Monocytes # (Auto) 0.8 Thou/mm3 (0.0-0.8); Monocytes % (Auto) 10 % (0-12); Neutrophils # (Auto) 5.3 Thou/mm3 (1.8-7.7); Neutrophils % (Auto) 65 % (37-80); Nucleated Red Blood Cell % 0 /100 WBC (0); Platelet Count 260 Thou/mm3 (140-440); RDW Standard Deviation 45.1 fL (36.4-46.3); White Blood Count 8.2 Thou/mm3 (3.6-11.0)
[2024-03-06 06:25] LABS: Alanine Aminotransferase 31 U/L (10-49); Albumin, Serum 3.7 gm/dL (3.5-5.0); Albumin/Globulin Ratio 1.4 (1.2-2.2); Alkaline Phosphatase 76 U/L (46-116); Anion Gap 6 (7-16); Aspartate Amino Transferase 20 U/L (0-34); BUN/Creatinine Ratio 13 Ratio (12-20); Bilirubin,Total 1.4 mg/dL (0.3-1.2); Blood Urea Nitrogen 8 mg/dL (9-23); Calcium 9.4 mg/dL (8.3-10.6); Calcium (Corrected) 9.6 mg/dL (8.5-10.1); Carbon Dioxide 24.7 mMol/L (20.0-31.0); Chloride 97 mMol/L (98-107); Creatinine (Component) 0.6 mg/dL (0.6-1.3); Estimated Creatinine Clearance 79.8 mL/min (>60); Globulin 2.7 gm/dL (2.3-3.5); Glucose 105 mg/dL (74-106); Osmolality,Calculated 255 (275-295); Potassium 3.4 mMol/L (3.4-5.1); Sodium 128 mMol/L (136-145); Total Protein 6.4 gm/dL (5.7-8.2); eGFR > 60 See Note
[2024-03-06 06:28] LABS: ANA Pattern MITOTIC, CHROMOSOMAL; ANA Screen, IFA POSITIVE (NEGATIVE)
[2024-03-06] MEDS: AMOXICILLIN 250 MG CAPSULE 1000 MG PO ×2 (08:53→20:41)
[2024-03-06] MEDS: PANTOPRAZOLE 40 MG TABLET PO ×2 (08:53→20:41)
[2024-03-06] MEDS: Lisinopril 2.5 MG TABLET 10 MG PO (08:53)
[2024-03-06] MEDS: CLARITHROMYCIN 250 MG TABLET 500 MG PO ×2 (08:53→20:41)
--- NOTE | 2024-03-06 10:56 | PC.SS ---
rounding note: Patient to have repeat LP completed. Tentative d/c plan: [facility] acute rehab
--- NOTE | 2024-03-06 11:39 | PD.TNEUROPRO ---
Tele Neuro Progress Note Progress Note Date 03/06/24 Most Recent Vital Signs Last Vital Signs Temp 97.3 F 03/06/24 08:00 Pulse 70 03/06/24 08:53 Resp 18 03/06/24 08:00 BP 110/62 03/06/24 08:53 Pulse Ox 97 03/06/24 08:00 O2 Del Method Room Air 03/06/24 08:00 Laboratory-Coagulation Panel PT 11.5 Seconds (9.0-12.2) 02/28/24 15:43 INR 1.1 (0.9-1.3) 02/28/24 15:43 APTT 23.6 Seconds (22.0-36.0) D 02/28/24 15:43 Fibrinogen 396 mg/dL (175-375) H 03/04/24 15:40 Progress Note Narrative [facility] Tele[facility]urology Progress Note Date of Service 03/06/2024 Presentation: Based on previous neurology note(s) : 58 years old woman with history of hypertension, Hyperlipidemia/Hypercholesterolemia , migraines, two recent admissions for headaches and found to have right cerebellar stroke and then admission for fever and nausea. Now brought in with aphasia and right sided weakness. Interval history: CT and CTA head non acute Brain MRI without contrast No Acute Intracranial Abnormality. But very significant white matter disease Brain MRI 02/28 with contrast concern for left basal ganglia infarction MRV head limited by movement but grossly unremarkable CSF 02/27 WBC 72, RBC 23, protein 179, glucose 27 TTE: EF Normal, no PFO, no Thrombus reported 03/03/2024: nursing does not report any significant new events overnight. 03/04: nursing does not report any significant new events overnight. 03/05: head CT yesterday still concerning for subarachnoid hemorrhage. this was done because per son she stopped talking. 03/06: per family mental status / speech improving. Impression: Altered mental status, due to encephalitis left basal ganglia Acute Ischemic Stroke abnormal head CT Recommendations: (Primary Team to order Controlled Medications) Unless specifically noted I Agree with Impression and Plan from previous Neurology note/consult. 1- 03/05 I ordered EEG as family has noticed she has not been speaking well since 03/04/24 2- Supportive and symptomatic treatment, electrolyte management per primary team. 3- deferring antibiotic, antifungal and antivirals to ID. 4- continue thiamine 5- given continued concern for SAH (despite negative brain MRI and no significant blood on initial CSF) I recommend repeating LP by IR, I will hold aspirin for now (not for LP but for concern for SAH), should check CSF for concerns for SAH and save additional sample for ID (per ID note repeat csf cocci as the test at [facility] remains pending) ; currently suspicion for SAH is not high as initial head CT reported it but MRI did not and initial LP had only 23 RBC. 6- Blood Pressure goal normotension [facility] Neurologist will follow up with results. Please contact [facility] Navigator to reach me if further questions/concerns arise. Examination: awake, alert, attempting to speak but has severe dysarthria, appears to have severe aphasia as well Extraocular movements intact Has right hemiplegia Patient / Family was informed the Neurology Consult would occur via Tele[facility] consult by way of interactive audio and video telecommunications and consented to receiving care in this manner. Patient is being evaluated for possible acute neurologic impairment and high probability of imminent or life - threatening deterioration. I spent total of 18 minutes providing care to this patient, including time for face to face visit via telemedicine, review of medical records, imaging studies and discussion of findings with providers, the patient and / or family. Dr Rachid Macdonald [facility] For Inpatient follow-up with [facility] physician please call [facility] . This is not an outpatient service. Post hospital discharge, please contact hospital directly. Please do not communicate with [facility] physicians via secure chat. If you have any questions, Please contact [facility]. Please call or reconsult our service if there are any clinical or diagnostic changes.
[2024-03-06 14:41] LABS: Anion Gap 7 (7-16); BUN/Creatinine Ratio 13 Ratio (12-20); Blood Urea Nitrogen 8 mg/dL (9-23); Calcium 9.1 mg/dL (8.3-10.6); Carbon Dioxide 23.5 mMol/L (20.0-31.0); Chloride 96 mMol/L (98-107); Creatinine (Component) 0.6 mg/dL (0.6-1.3); Estimated Creatinine Clearance 79.8 mL/min (>60); Glucose 138 mg/dL (74-106); Osmolality,Calculated 253 (275-295); Potassium 3.5 mMol/L (3.4-5.1); Sodium 126 mMol/L (136-145); eGFR > 60 See Note
--- NOTE | 2024-03-06 15:41 | CHAP ---
09:30 AM Visited by spiritual care volunteer Provided prayer for Patient
--- NOTE | 2024-03-06 16:17 | ESPR_ITS ---
<Statement entered by Lois Santiago MD - 03/07/24 05:55> Patient seen and examined at bedside. No acute overnight events reported. Will reach out to [facility] regarding whether they have received CSF sample. Depsite adequate intake and patient's euvolemic status, patient's Na continues to drop, with repeat BMP showing Na at 126. Will consult Nephrology for further recommendations and will order urine Na/Cr for now. I discussed with and supervised the dietetic intern physician who took care of this patient. I personally saw and examined the patient and discussed the assessment and plan with the entire medicine team, including my attending , I agree with most of the assessment and plan as documented below Lois Santiago M.D. 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 Given patient's clinical status, daughter at bedside provided history. Father called daughter stating that patient was weak to get out of bed, then son went to see patient at 10 a.m. and patient was not responding to questions. EMS was called and patient was then brought to the ED. In ED, patient was noted to have right-sided hemiparesis, right-sided facial droop, and aphasia so stroke alert was called. Initial CT head showed concern for possible SAH versus artifact. However, patient not candidate for thrombolytics given recent stroke within last month and outside of window. Of note, patient discharged 02/03 after being admitted for gastroenteritis, found to have elevated CA 125, and was told to follow-up with Dr. Damari seymour but had not been able to due to insurance issues. 02/28: No acute overnight events to report. Patient seen and examined in hospital bed with and daughter at bedside. Patient was difficult to arouse; however, eventually she woke up. Patient is nonverbal at this time but is able to track with his eyes and seems to understand questioning by giving a thumbs up sign. There is definite right-sided facial drooping noted when patient is asked to smile or opening her mouth. Teleneurology was consulted and the recommendation was to repeat MRI with contrast along with MRV. Telemetry neurology also recommends with discontinuing some of the empiric medications but to follow-up with ID which has also been consulted. Infectious disease recommends on discontinuing vancomycin to continue the other medications at this time. 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 03/01: No acute overnight events to report. Patient seen and examined this a.m. with mild neurologic improvement; patient is able to communicate minimally with 1-2 words but has persistent right-sided upper and lower extremity weakness, left-sided neglect and persistent facial droop. Repeat brain MRI with contrast was positive for 17 mm acute infarct of the left basal ganglia. Patient's family bedside question regarding her use of aspirin and Plavix after she got her first CVA on January 2024; they state that she took her medications as prescribed. Patient had a stroke even with antiplatelets on; teleneurology has been consulted and are following the patient closely. 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 Once patient makes some progress, she will need to be treated for H. pylori and she will need follow-up with Dr. Wetzel regarding pulmonary nodule 10 mm which was found on CT. 03/02: No acute overnight events. Dr. Hernandez has given recommendations to stop antibiotics, acyclovir, and statins (for the time being) for previous differential of diagnosis bacterial meningitis as they can negative interact with fluconazole clearance and at this point, bacterial etiology behind patient's clinical condition unlikely. Will plan to restart statin after fluconazole course ends next week. With regards to patient's untreated previously diagnosed H. pylori from 02/01/24, started triple therapy, namely protonix 40mg BID, clarithromycin 500mg BID, and amoxicillin 1g BID x14 days as per guidelines for H. pylori triple therapy treatment. Teleneurology saw the patient today and recommended routine EEG and to start aspirin 81mg PO qd, but to hold off on Plavix at this time, as Dr. Romero can not rule out fungal abscess secondary to coccidiomycosis as an etiology behind patient's condition. Lisinopril 10mg PO qd started for blood pressure control, thiamine 500mg IV BID started x2 days and will lower to 250mg IV BID x5 days afterwards. Ordered TSH, NH3, B6/B9/B12, A1c as further workup for patient's symptoms. 03/03: No acute overnight events. Patient working with speech and occupational therapy this morning, making small improvements each day. Still experiencing global aphasia and complete motorsensory loss of right half of her body, but alert, nods/shakes her head or gives thumbs up/down, and follows along in conversations. Continuining IV thiamine with last dosage tomorrow. No further recommendations from neurology. 03/04: No acute overnight events to report. Patient seen and examined in hospital bed with difficulty verbalizing; which is a new finding from previous days. As such, CT of head/brain without contrast has been ordered which showed suspicions for a subarachnoid hemorrhage still present in the right horizontal sylvian cistern and recommendations to get diagnostic lumbar puncture. Patient has had lumbar puncture which did not show any blood; thus, clinically suspicion remains low for subarachnoid hemorrhage. Will order a hypercoagulable order set as the patient developed a stroke even while being on aspirin and Plavix. Teleneurology following; appreciate recommendations regarding starting Plavix or not. Will continue fluconazole treatment for possible cocci meningitis/abscess; pending ID recommendations and cocci CSF studies. Patient will continue to be treated for H. pylori. 03/05: No acute overnight events to report. Patient seen and examined in hospital bed continuing to make incremental progress; however, still has difficulty ambulating right-sided upper and lower extremities, left-sided extremities slightly better. Patient able to verbalize very slowly with a couple words when spoken to in Polish. Teleneurology is following the patient; they have recommended repeat LP which will be completed tomorrow (03/06) secondary to CT results which show still persistent subarachnoid hemorrhage. Our suspicions for an actual subarachnoid hemorrhage remain low as the patient had an lumbar puncture with did not show any signs of bleeding. Cocci CSF samples have been sent to [facility] and they are pending results per laboratory sales training representative. Will continue to monitor for any acute changes. Update: IR team would not like to proceed with the LP as an LP was already completed post-CT SAH finding. There was no sign of bleeding from CSF studies at that time; thus, per IR team acquiring another LP would be redundant and risky at this time. 03/06: No acute overnight events. Patient slowly regaining some speech and left- sided extremity function. Initially planned for repeat LP, but IR suggests against this, stating that it is redundant as patient has already had an LP during this admission. Pending [facility] cocci studies. Per our labaratory, [facility] lab has received the CSF samples and are in the process of analyzing. EEG taken, results pending. Patient's mild hyponatremia worsening day by day, ordered urine osmolality and osmolytes to evaluate for possible salt-wasting. Exam Vital Signs Temp Pulse Resp BP Pulse Ox O2 Del Method 97.7 F 75 18 118/72 96 Room Air 03/06/24 12:00 03/06/24 12:00 03/06/24 12:00 03/06/24 12:00 03/06/24 12:00 03/06/24 12:00 Narrative Exam Gen: Alert, aphasic, appears stated age, in no acute distress, able to respond to questions with thumbs up or down, attempts to verbally answer questions but speech very slurred HEENT: NCAT, PERRLA, EOMI, MMM, anicteric conjunctivae, right-sided facial droop present CVS: normal S1 and S2. RRR. No M/R/G. Resp: CTA B/L. No rhonchi, rales, crackles or wheezing. Abd: soft, non-tender, non-distended. BS+ in all 4 quadrants. MSK: Limited range of motion of extremities, no motion in right extremities. No edema or rash. Neuro: Speech severely slurred, eyes tracking individuals in room as they move, GCS 12 ([id number]), right-sided strength 0/5, left-sided strength improved from 2/5 to 3/5, right-sided facial droop present Objective Labs 03/07/24 04:15 03/07/24 04:15 Labs: Laboratory Results - last 24 hr 02/28/24 03/06/24 03/06/24 15:43 05:41 14:10 WBC 8.2 RBC 3.70 L Hgb 11.7 L Hct 33.6 L MCV 91 MCH 31.6 MCHC 34.8 RDW Std Deviation 45.1 Plt Count 260 D Neut % (Auto) 65 Lymph % (Auto) 23 [place] % (Auto) 10 Eos % (Auto) 2 Baso % (Auto) 1 Neut # (Auto) 5.3 Lymph # (Auto) 1.9 [place] # (Auto) 0.8 Eos # (Auto) 0.1 Baso # (Auto) 0.0 Immature Gran # (Auto) 0.05 H Absolute Nucleated RBC 0.00 Immature Gran % 1 H Nucleated RBC % 0 Sodium 128 L 126 L Potassium 3.4 3.5 Chloride 97 L 96 L Carbon Dioxide 24.7 23.5 Anion Gap 6 L 7 BUN 8 L 8 L Creatinine 0.6 0.6 Estim Creat Clear Calc 79.8 79.8 eGFR > 60 > 60 BUN/Creatinine Ratio 13 13 Glucose 105 138 H Calculated Osmolality 255 L 253 L Calcium 9.4 9.1 Corrected Calcium 9.6 Magnesium 2.0 Total Bilirubin 1.4 H AST 20 ALT 31 Alkaline Phosphatase 76 Total Protein 6.4 Albumin 3.7 Globulin 2.7 Albumin/Globulin Ratio 1.4 CAITLYN Screen POSITIVE A CAITLYN Titer 1:80 H CAITLYN Titer 2 TNP CAITLYN Titer 3 TNP CAITLYN Pattern MITOTIC, CHROMOSOMAL CAITLYN Pattern 2 TNP CAITLYN Pattern 3 TNP Quality Measures Quality Measures none Assessment & Plan Assessment Current Active Medications: Generic Name Dose Route Start Last Admin Trade Name Freq PRN Reason Stop Dose Admin Amoxicillin 1,000 mg 03/02/24 21:00 03/06/24 08:53 Amoxicillin 250 Mg Capsule PO 03/16/24 21:59 1,000 mg BID ROGER Administration Aspirin 81 mg 03/01/24 13:30 03/05/24 08:47 Aspirin Ec 81 Mg Tabec PO 03/31/24 13:29 81 mg QDAY ROGER Administration Clarithromycin 500 mg 03/02/24 21:00 03/06/24 08:53 Clarithromycin 250 Mg Tablet PO 03/16/24 20:59 500 mg BID ROGER Administration Fluconazole 800 mg 03/02/24 21:00 03/05/24 20:08 Fluconazole 100 Mg Tablet PO 03/09/24 20:59 800 mg HS ROGER Administration Lisinopril 10 mg 03/02/24 11:15 03/06/24 08:53 Lisinopril 2.5 Mg Tablet PO 04/01/24 11:14 10 mg QDAY ROGER Administration Ondansetron HCl 4 mg 02/28/24 14:28 Ondansetron Inj 2 Mg/Ml Inj 2 Ml IV 03/29/24 14:27 Q4HR PRN NAUSEA OR VOMITING Pantoprazole Sodium 40 mg 03/02/24 21:00 03/06/24 08:53 Pantoprazole 40 Mg Tablet PO 03/16/24 20:59 40 mg BID ROGER Administration Sennosides 1 tab 02/29/24 16:17 Senna Tablet PO 03/30/24 16:16 QDAY PRN CONSTIPATION Protocol Plan 58-year-old female with a past medical history of hypertension, hyperlipidemia, fibromyalgia, migraines, and 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 Given patient's clinical status, daughter at bedside provided history. Father called daughter stating that patient was weak to get out of bed, then son went to see patient at 10 a.m. and patient was not responding to questions. EMS was called and patient was then brought to the ED. In ED, patient was noted to have right-sided hemiparesis, right-sided facial droop, and aphasia so stroke alert was called. Initial CT head showed concern for possible SAH versus artifact. However, patient not candidate for thrombolytics given recent stroke within last month and outside of window. Of note, patient discharged 02/03 after being admitted for gastroenteritis, found to have elevated CA 125, and was told to follow-up with Dr. Wetzel outpatient but had not been able to due to insurance issues. 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 Repeat MRI with contrast demonstrated 17mm acute infarct of left basal ganglia Patient has history of Cocci IgM and IgG CSF is clear, colorless with 72 WBC and 23 RBC, 5 mononuclear WBC and 95 polynuclear WBC, glucose low at 27 and total protein elevated at 179. CSF influenza, meningitis, strep negative pending mild protein only with no bands and cocci Venogram MRI degraded study Speech therapy recommends extensive speech therapy for months PT recommends acute rehab placement Lipid panel, TSH, NH3, B6/B9/B12, and A1c were ordered for further evaluation, all were within normal limits Repeat CT Head/Brain findings remained suspicious for SAH; however LP was negative for blood (low RBC count) and was clear Plan: - Teleneurology consulted and following - ID consulted, Dr. Hernandez following - Continue aspirin 81mg PO qd - Continue Fluconazole 800mg PO HS for empiric Cocci coverage - Neurochecks q4h - DVT prophylaxis - Head of bed 30 degrees - Euglycemia and avoid hyperthermia - Follow-up CSF analysis - Holding off on Plavix at this time per teleneurology's recommendations as fungal abscess can not be ruled out by current imaging - Hypercoagulable workup sent; patient developed stroke while on asp/plavix (homocysteine, protein c/s, factor V leiden, fibrinogen) #Euvolemic Hyponatremia Patient slowly developing hyponatremia since admission, lowering approximately 1-2 mEq Na per day. On morning of 03/06, Na 128, and on recheck at 2PM, 126. Patient is likely euvolemic. Initially suspected hyponatremia to be due to poor oral intake, but patient has been tolerating her cardiac diet well and working with speech therapy daily. - Nephrology Dr. Paz consulted, appreciate recommendations - Urine studies including urine sodium, creatinine, and osmolality ordered for evaluation of possible salt-wasting - Will recheck in AM #H. 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 Pompa was consulted time, completed EGD and biopsy Pathology confirmed H. pylori infection Patient's family states that she was never treated for H. pylori after discharge and never followed up outpatient with PCP or Dr. Peña Wetzel was also consulted due to Elevated CA 125 and CA 19?9 pending Plan: - Continue triple therapy for tx of H. pylori infection: protonix 40mg PO BID, clarithromycin 500mg PO BID, and amoxicillin 1g PO BID x 14 days - Follow-up with oncologist Dr. Wetzel outpatient for further evaluation of possible GI malignancy as seen by elevated cancer markers in serum #10mm Pulmonary Nodule 10mm pulmonary nodule right lower lobe as seen on CT chest/abdomen/pelvis during hospitalization in mid January for GI symptoms Radiology recommended at that time for 6-month follow-up CT Plan: - Follow up outpatient for repeat imaging #Hypertension #Hyperlipidemia #Fibromyalgia #Migraines All chronic conditions present prior to admission Plan: - Continue home dose of lisinopril 10mg PO qd - Holding statin at this time as fluconazole has a known adverse effect of significantly increasing levels of serum statin - Continue to monitor Health Maintenance: Lines: PIV Diet: Cardiac diet GI prophylaxis: None indicated DVT prophylaxis: Lovenox 40mg SubQ qd Disp: Pending CSF Cocci studies; will require extensive PT/OT and Speech therapy outpatient Code: Full code Case disclosed with Attending Dr. Izaguirre and my seniors Dr. Mata and Dr. Santiago. Steven Pennington PGY1 LI discussed with and supervised the dietetic intern physician who took care of this patient. I personally saw and examined the patient and discussed the assessment and plan with the entire medicine team, including my attending Dr. González Izaguirre MD. I agree with the assessment and plan as documented above. Patient interviewed and examined at bedside this a.m. No acute overnight events reported. 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 Patient currently working with PT with some improvement of her left-sided deficits however her right-sided deficits still showing right-sided hemiparesis. Patient was suggested to have repeat LP however IR suggested against repeating study. Mike Mata M.D. Internal Medicine PGY-3
[2024-03-06] MEDS: FLUCONAZOLE 100 MG TABLET 800 MG PO (20:41)
[2024-03-07] VITALS (10 sets, daily range): BP systolic 109–140; BP diastolic 60–71; PULSE 59–82; RESP 18; TEMP 36.4–36.8; O2SAT 76–98; BMI 21.6
[2024-03-07 05:28] LABS: Basophils % (Auto) 1 % (0-2.5); Eosinophils # (Auto) 0.1 Thou/mm3 (0.0-0.5); Eosinophils % (Auto) 2 % (0-10); Hematocrit 33.3 % (36.0-46.0); Hemoglobin 11.6 g/dL (12.0-16.0); Immature Granulocytes % (Auto) 1 % (0-0); Immature Granulocytes Auto 0.07 Thou/mm3 (0.00-0.00); Lymphocytes # (Auto) 1.9 Thou/mm3 (1.0-4.8); Lymphocytes % (Auto) 26 % (10-50); Mean Corpuscular HGB Conc 34.8 g/dl (31.0-37.0); Mean Corpuscular Hemoglobin 31.9 pg (25.0-35.0); Mean Corpuscular Volume 92 fL (80-100); Monocytes # (Auto) 0.8 Thou/mm3 (0.0-0.8); Monocytes % (Auto) 11 % (0-12); Neutrophils # (Auto) 4.4 Thou/mm3 (1.8-7.7); Neutrophils % (Auto) 61 % (37-80); Nucleated Red Blood Cell % 0 /100 WBC (0); Platelet Count 295 Thou/mm3 (140-440); RDW Standard Deviation 45.7 fL (36.4-46.3); Red Blood Count 3.64 Miln/mm3 (4.00-5.20); White Blood Count 7.2 Thou/mm3 (3.6-11.0)
[2024-03-07 06:35] LABS: Anion Gap 7 (7-16); BUN/Creatinine Ratio 12 Ratio (12-20); Blood Urea Nitrogen 6 mg/dL (9-23); Calcium 9.5 mg/dL (8.3-10.6); Carbon Dioxide 24.5 mMol/L (20.0-31.0); Chloride 96 mMol/L (98-107); Creatinine (Component) 0.5 mg/dL (0.6-1.3); Estimated Creatinine Clearance 95.8 mL/min (>60); Glucose 105 mg/dL (74-106); Osmolality,Calculated 252 (275-295); Potassium 3.3 mMol/L (3.4-5.1); Sodium 127 mMol/L (136-145); eGFR > 60 See Note
[2024-03-07 06:36] LABS: Alanine Aminotransferase 26 U/L (10-49); Albumin, Serum 3.9 gm/dL (3.5-5.0); Albumin/Globulin Ratio 1.4 (1.2-2.2); Alkaline Phosphatase 80 U/L (46-116); Aspartate Amino Transferase 17 U/L (0-34); Bilirubin,Total 1.3 mg/dL (0.3-1.2); Calcium (Corrected) 9.6 mg/dL (8.5-10.1); Globulin 2.7 gm/dL (2.3-3.5); Magnesium 1.9 mg/dL (1.6-2.6); Total Protein 6.6 gm/dL (5.7-8.2)
[2024-03-07 06:42] LABS: Creatinine,Random Urine 39 mg/dL (30-125); Sodium,Urine Random 19.4 mMol/L (20.0-110.0)
[2024-03-07] MEDS: CLARITHROMYCIN 250 MG TABLET 500 MG PO ×2 (08:36→22:13)
[2024-03-07] MEDS: PANTOPRAZOLE 40 MG TABLET PO ×2 (08:37→22:17)
[2024-03-07] MEDS: POTASSIUM CHLORIDE 20 mEq TABCR 40 MEQ PO (08:37)
[2024-03-07] MEDS: AMOXICILLIN 250 MG CAPSULE 1000 MG PO ×2 (08:37→22:15)
[2024-03-07] MEDS: Lisinopril 2.5 MG TABLET 10 MG PO (08:37)
--- NOTE | 2024-03-07 10:23 | PC.SS ---
Addendum entered by Maria Victoria Blake 03/07/24 15:11: Follow up note: SS spoke to Charline @ [facility] and they are contracted with patient's insurance. If patient needs a lower level facility, patient's insurance contracts with facility and will pay 100%. SS will wait to hear from both [facility] acute rehab and [facility] Addendum entered by Maria Victoria Blake 03/07/24 15:05: Follow up note: SS spoke to Emmie @ [facility] acute rehab and they state their concern is patient's sodium level is too low and they need to see patient progressing more with PT. 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 Original Note: Follow up note: SS sent updated notes including results from coccyx. Updated [place]
--- NOTE | 2024-03-07 13:36 | PD.IDPROG ---
Subjective Subjective Interval history: csf pos for cocci. 1:16. pt also appears to have had a cva that is not new Exam Vital Signs Temp Pulse Resp BP Pulse Ox O2 Del Method 98.2 F 74 18 140/60 H 97 Room Air 03/07/24 11:38 03/07/24 11:38 03/07/24 11:38 03/07/24 11:38 03/07/24 11:38 03/07/24 11:38 Narrative Exam cva noted. rt pippa. swiss only, limited mobility noted. Objective - Internal Medicine Labs 03/07/24 04:15 03/07/24 04:15 Labs: Laboratory Results - last 24 hr 03/06/24 03/07/24 03/07/24 14:10 04:15 04:50 WBC 7.2 RBC 3.64 L Hgb 11.6 L Hct 33.3 L MCV 92 MCH 31.9 MCHC 34.8 RDW Std Deviation 45.7 Plt Count 295 D Neut % (Auto) 61 Lymph % (Auto) 26 [place] % (Auto) 11 Eos % (Auto) 2 Baso % (Auto) 1 Neut # (Auto) 4.4 Lymph # (Auto) 1.9 [place] # (Auto) 0.8 Eos # (Auto) 0.1 Baso # (Auto) 0.0 Immature Gran # (Auto) 0.07 H Absolute Nucleated RBC 0.00 Immature Gran % 1 H Nucleated RBC % 0 Sodium 126 L 127 L Potassium 3.5 3.3 L Chloride 96 L 96 L Carbon Dioxide 23.5 24.5 Anion Gap 7 7 BUN 8 L 6 L Creatinine 0.6 0.5 L Estim Creat Clear Calc 79.8 95.8 eGFR > 60 > 60 BUN/Creatinine Ratio 13 12 Glucose 138 H 105 Calculated Osmolality 253 L 252 L Calcium 9.1 9.5 Corrected Calcium 9.6 Magnesium 1.9 Total Bilirubin 1.3 H AST 17 ALT 26 Alkaline Phosphatase 80 Total Protein 6.6 Albumin 3.9 Globulin 2.7 Albumin/Globulin Ratio 1.4 Ur Random Creatinine 39 Ur Random Sodium 19.4 L Assessment & Plan A&P Narrative encephalitis, 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 original dx january 2024: 1:16 serum. not treated till more recently rt pippa more c/w cva and less so with cocci on rx for h pylori dx 02/02/24 by bx. no pud noted on same egd study with pos cocci at [facility], favor rx for cocci with flucon. po is same as iv if she can take enterallyand she is on enteral flucon ok for longterm care if ready otherwise will check in superficially on tuesday if still here Time Spent With Patient Time: Total time spent is greater than 50% in coordination of care (as documented) at patient's floor/unit and/or counseling patient:
--- NOTE | 2024-03-07 13:48 | PD.RESCONSUL ---
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 Given patient's clinical status, daughter at bedside provided history. Father called daughter stating that patient was weak to get out of bed, then son went to see patient at 10 a.m. and patient was not responding to questions. EMS was called and patient was then brought to the ED. In ED, patient was noted to have right-sided hemiparesis, right-sided facial droop, and aphasia so stroke alert was called. Initial CT head showed concern for possible SAH versus artifact. However, patient not candidate for thrombolytics given recent stroke within last month and outside of window. Of note, patient discharged 02/03 after being admitted for gastroenteritis, found to have elevated CA 125, and was told to follow-up with Dr. Wetzel outpatient but had not been able to due to insurance issues. Patient nonverbal at this time but is able to track with his eyes and seems to understand questioning by giving a thumbs up sign. There is definite right-sided facial drooping noted when patient is asked to smile or opening her mouth. Teleneurology was consulted and the recommendation was to repeat MRI with contrast along with MRV. Telemetry neurology also recommends with discontinuing some of the empiric medications but to follow-up with ID which has also been consulted. Infectious disease recommends on discontinuing vancomycin to continue the other medications at this time. Patient is able to communicate minimally with 1-2 words but has persistent right-sided upper and lower extremity weakness, left-sided neglect and persistent facial droop. Repeat brain MRI with contrast was positive for 17 mm acute infarct of the left basal ganglia. Dr. Hernandez has given recommendations to stop antibiotics, acyclovir, and statins (for the time being) for previous differential of diagnosis bacterial meningitis as they can negative interact with fluconazole clearance and at this point, bacterial etiology behind patient's clinical condition unlikely. Teleneurology saw the patient and recommended routine EEG and to start aspirin 81mg PO qd, but to hold off on Plavix at this time. Patient has had lumbar puncture which did not show any blood. Patient able to verbalize very slowly with a couple words when spoken to in Indonesian. Patient slowly regaining some speech and left-sided extremity function. Patient's mild hyponatremia worsening day by day. Nephrology consulted for worsening hyponatremia, concern for salt wasting syndrome. Patient seen and examined on the floors, resting comfortably in bed. Eating soft foods slowly with assistance. Patient minimally verbal, gave one-word answers. Patient follow commands appropriately. Patient showed severe right sided weakness. Serum osmolality 252. Serum sodium 127, improved from yesterday. BUN 6, creatinine 0.5, eGFR >60. Urine sodium 19.4. Will continue to monitor sodium levels. cc:: cc: González Izaguirre MD Review of Systems Review of Systems Systems Reviewed: All systems reviewed, normal except as documented Past Medical History Past Medical History NEUROLOGIC: Positive Neurological Disorders, Cerebrovascular Accident and Migraine; Negative Seizures CARDIAC: Positive Cardiac Disorders and Hypertension; Negative Congestive Heart Failure RESPIRATORY: Negative Respiratory Disorders, Chronic Obstructive Pulmonary Disease (COPD) or Asthma GASTROINTESTINAL: Negative Gastrointestinal Disorders GENITOURINARY: Negative Genitourinary Disorders or Renal Disease REPRODUCTIVE: Positive Previous Pregnancies MUSCULOSKELETAL: Positive Musculoskeletal Disorders and Arthritis ENDOCRINE: Negative Endocrine Disorders, Diabetes Mellitus Type 1 or Diabetes Mellitus Type 2 HEMATOLOGIC: Negative Blood Disorders or Sickle Cell Disease PSYCHO/SOCIAL: Positive Depression and Anxiety OTHER HISTORY: Negative Hospitalization, Autoimmune Disease, Down Syndrome, Developmental Delay, Shingles, Falls, Blood Transfusions, Blood Transfusion Reaction, Anesthesia Reactions, Organ Transplant, Chemotherapy, Radiation Therapy, Hyperbaric Therapy, MRSA, VRSA, Vancomycin-Resistant Enterococci or Cancer Family History FAMILY HISTORY: Negative Family Psychiatric Problems, Family Respiratory Disorders, Family Cardiac Disorders, Family Gastrointestinal Problems, Family Cancer, Family Surgery or Family Anesthesia Reaction Surgical History SURGICAL: Positive Hysterectomy; Negative Organ Transplant Social History SMOKING STATUS: Smoker, status unknown SECOND HAND EXPOSURE: No SUBSTANCE USE: does not use Exam Vital Signs Temp Pulse Resp BP Pulse Ox O2 Del Method 98.2 F 74 18 140/60 H 97 Room Air 03/07/24 11:38 03/07/24 11:38 03/07/24 11:38 03/07/24 11:38 03/07/24 11:38 03/07/24 11:38 Narrative Exam PE: Gen: Well-developed and well-nourished. HEENT: NCAT, PERRLA, EOMI, MMM, anicteric conjunctivae. Right sided facial droop. CVS: normal S1 and S2. RRR. No M/R/G. Resp: CTA B/L. No rhonchi, rales, crackles or wheezing. Abd: soft, non-tender, non-distended. MSK: Good ROM in LUE & LLE. No edema or rash. Minimal movement in right upper and lower extremities due to neurological deficit. Neuro: CN II-XII grossly intact. Strength 5/5 in LUE & LLE. Alert and oriented x3. Strength 1/5 in right upper and lower extremity. Aphasic, can give one-word answers. Follows commands. Results Labs 03/07/24 04:15 03/07/24 04:15 Labs: Short CBC 03/07/24 Range/Units 04:15 WBC 7.2 (3.6-11.0) Thou/mm3 Hgb 11.6 L (12.0-16.0) g/dL Hct 33.3 L (36.0-46.0) % Plt Count 295 D (140-440) Thou/mm3 BMP 03/06/24 03/07/24 14:10 04:15 Sodium 126 L 127 L Potassium 3.5 3.3 L Chloride 96 L 96 L Carbon Dioxide 23.5 24.5 BUN 8 L 6 L Creatinine 0.6 0.5 L Glucose 138 H 105 Calcium 9.1 9.5 Liver Function 03/07/24 Range/Units 04:15 Total Bilirubin 1.3 H (0.3-1.2) mg/dL AST 17 (0-34) U/L ALT 26 (10-49) U/L Alkaline Phosphatase 80 (46-116) U/L Albumin 3.9 (3.5-5.0) gm/dL Quality Measures Quality Measures none Medications Home Medications and Allergies Home Medications ?Medication ?Instructions ?Recorded ?Confirmed ?Type acetaminophen 500 mg tablet 500 mg PO [id number] PRN Pain 02/01/24 02/29/24 History duloxetine 30 mg capsule,delayed 30 mg PO QDAY 02/01/24 02/29/24 History release meclizine 25 mg tablet 25 mg PO Q12H PRN Dizziness 02/01/24 02/29/24 History aspirin 81 mg tablet,delayed 81 mg PO DAILY 02/29/24 02/29/24 History release atorvastatin 80 mg tablet 80 mg PO HS 02/29/24 02/29/24 History clopidogrel 75 mg tablet (Plavix) 75 mg PO QDAY 02/29/24 02/29/24 History Allergies Allergy/AdvReac Type Severity Reaction Status Date / Time No Known Allergies Allergy Verified 02/03/24 18:57 Visit Medications Amoxicillin (Amoxicillin 250 Mg Capsule) 1,000 mg PO BID [facility] Stop: 03/16/24 21:59 Last Admin: 03/07/24 08:37 Dose: 1,000 mg Aspirin (Aspirin Ec 81 Mg Tabec) 81 mg PO QDAY [facility] Stop: 03/31/24 13:29 Last Admin: 03/05/24 08:47 Dose: 81 mg Clarithromycin (Clarithromycin 250 Mg Tablet) 500 mg PO BID [facility] Stop: 03/16/24 20:59 Last Admin: 03/07/24 08:36 Dose: 500 mg Fluconazole (Fluconazole 100 Mg Tablet) 800 mg PO HS [facility] Stop: 03/09/24 20:59 Last Admin: 03/06/24 20:41 Dose: 800 mg Lisinopril (Lisinopril 2.5 Mg Tablet) 10 mg PO QDAY [facility] Stop: 04/01/24 11:14 Last Admin: 03/07/24 08:37 Dose: 10 mg Ondansetron HCl (Ondansetron Inj 2 Mg/Ml Inj 2 Ml) 4 mg IV Q4HR PRN PRN Reason: NAUSEA OR VOMITING Stop: 03/29/24 14:27 Pantoprazole Sodium (Pantoprazole 40 Mg Tablet) 40 mg PO BID [facility] Stop: 03/16/24 20:59 Last Admin: 03/07/24 08:37 Dose: 40 mg Sennosides (Senna Tablet) 1 tab PO QDAY PRN; Protocol PRN Reason: CONSTIPATION Stop: 03/30/24 16:16 Discontinued Medications Aspirin (Aspirin Ec 81 Mg Tabec) 81 mg PO QDAY [facility] Stop: 04/01/24 11:14 Last Admin: 03/02/24 12:11 Dose: Not Given Atorvastatin Calcium (Atorvastatin Calcium 20 Mg Tablet) 80 mg PO [facility] Stop: 03/31/24 20:59 Last Admin: 03/01/24 20:26 Dose: 80 mg Dexamethasone Sodium Phosphate (Dexamethasone Sod Phos Inj 10 Mg/Ml Vial) 10 mg IV Q6HR [facility] Stop: 03/02/24 23:39 Last Admin: 02/29/24 06:08 Dose: 10 mg Enoxaparin Sodium (Enoxaparin Sod Inj 40 Mg/0.4 Ml Syringe) 40 mg SC QDAY [facility] Stop: 03/14/24 08:59 Last Admin: 02/29/24 09:18 Dose: 40 mg Fluconazole (Fluconazole 100 Mg Tablet) 800 mg PO QDAY [facility] Stop: 03/10/24 08:59 Sodium Chloride (Ns) 1,000 mls @ 75 mls/hr IV .[id number] [facility] Stop: 02/29/24 10:04 Last Infusion: 02/29/24 10:30 Dose: 0 mls/hr Ceftriaxone Sodium 2 gm/ (Sodium Chloride) 50 mls @ 100 mls/hr IV Q12HR [facility] Stop: 03/06/24 23:39 Last Admin: 03/02/24 12:11 Dose: Not Given Ampicillin Sodium 2,000 mg/ (Sodium Chloride) 100 mls @ 100 mls/hr IV Q4HR [facility] Stop: 03/06/24 23:34 Last Admin: 03/02/24 05:21 Dose: 100 mls/hr Acyclovir Sodium 680 mg/ (Sodium Chloride) 113.6 mls @ 100 mls/hr IV Q8HR [facility] Stop: 03/06/24 23:44 Last Admin: 03/02/24 12:11 Dose: Not Given Vancomycin/Sodium Chloride (Vancomycin/Ns 1 Gm Ivpb) 200 mls @ 120 mls/hr IV Q100M [facility] Stop: 02/29/24 03:04 Last Admin: 02/29/24 03:39 Dose: 120 mls/hr Vancomycin/Sodium Chloride (Vancomycin/Ns 1 Gm Ivpb) 200 mls @ 120 mls/hr IV Q8HR [facility]; Protocol Stop: 03/07/24 13:59 Last Infusion: 02/29/24 14:10 Dose: 0 mls/hr Magnesium Sulfate (Magnesium Sulfate Ivpb) 2 gm in 50 mls @ 25 mls/hr IV X1 ONE Stop: 02/29/24 09:57 Last Infusion: 02/29/24 11:07 Dose: Infused Potassium Chloride (Kcl Ivpb) 10 meq in 100 mls @ 100 mls/hr IV Q1H [facility] Stop: 02/29/24 12:35 Last Infusion: 02/29/24 13:33 Dose: Infused Fluconazole (Diflucan/Ns Ivpb) 800 mg in 400 mls @ 100 mls/hr IV QDAY [facility] Stop: 03/07/24 10:09 Last Admin: 03/02/24 12:11 Dose: Not Given Thiamine HCl 500 mg/ Sodium (Chloride) 105 mls @ 205 mls/hr IV BID [facility] Stop: 03/04/24 21:00 Last Admin: 03/04/24 20:30 Dose: 205 mls/hr Pharmacy Consult (Vancomycin Pharmacy To Dose 1 Each Each) 1 each IV QDAY PRN PRN Reason: CONSULT Stop: 03/29/24 23:39 Potassium Chloride (Potassium Chloride 20 Meq Tabcr) 40 meq PO X1 ONE Stop: 02/29/24 07:59 Last Admin: 02/29/24 08:45 Dose: Not Given Potassium Chloride (Potassium Chloride 10% 20 Meq/15 Ml Udc) 40 meq PO X1 ONE Stop: 03/01/24 07:47 Last Admin: 03/01/24 09:21 Dose: 40 meq Potassium Chloride (Potassium Chloride 10% 20 Meq/15 Ml Udc) 40 meq PO X1 ONE Stop: 03/04/24 08:45 Last Admin: 03/04/24 10:04 Dose: 40 meq Potassium Chloride (Potassium Chloride 20 Meq Tabcr) 40 meq PO X1 ONE Stop: 03/07/24 08:05 Last Admin: 03/07/24 08:37 Dose: 40 meq Assessment & Plan Plan 58-year-old female with a past medical history of hypertension, hyperlipidemia, fibromyalgia, migraines, and 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 #Euvolemic Hyponatremia Patient slowly developing hyponatremia since admission, lowering approximately 1-2 mEq Na per day. On morning of 03/06, Na 128, and on recheck at 2PM, 126. Nephrology consulted to eval for hyponatremia, possible salt wasting syndrome. Patient tolerating p.o. intake well. Following day sodium improved to 127, urine sodium 19.4. Osmolality 252. Creatinine 0.5, BUN 16, eGFR > 60. 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 pylori infection #GI malignancy, possible #10mm Pulmonary Nodule #Hypertension #Hyperlipidemia #Fibromyalgia #Migraines Management as per primary team. DVT prophylaxis: None, concern for possible intracranial hemorrhage GI prophylaxis: Protonix Diet: Cardiac Lines: Peripheral IV Code status: Full code Thank you for allow me to participate in the care of this patient. Plan of care discussed with attending Dr. Paz. Devyn Henning MD PGY-1 Attending Provider Attestation/Addendum Patient seen and examined with resident physician Dr. Andrews. Note reviewed, agree with findings and recommendations. Patient admitted with right-sided aphasia/stroke. Had low sodium which improved today. Will monitor closely. Thank you González for allowing me to participate in the care of Ms. Red
--- NOTE | 2024-03-07 15:59 | PD.TNEURO ---
Tele Neuro Consultation Consultation Date 03/07/24 Most Recent Vital Signs Last Vital Signs Temp 98.2 F 03/07/24 11:38 Pulse 74 03/07/24 11:38 Resp 18 03/07/24 11:38 BP 140/60 H 03/07/24 11:38 Pulse Ox 97 03/07/24 11:38 O2 Del Method Room Air 03/07/24 11:38 Laboratory-Coagulation Panel PT 11.5 Seconds (9.0-12.2) 02/28/24 15:43 INR 1.1 (0.9-1.3) 02/28/24 15:43 APTT 23.6 Seconds (22.0-36.0) D 02/28/24 15:43 Fibrinogen 396 mg/dL (175-375) H 03/04/24 15:40 Consultation Narrative [facility] TeleNeurology Consult Services Routine Consult Follow-Up Patient Name:???Neda Youssef Date of :???1965 Identification Number:???N - [id number] Date of Service:???03/07/2024 14:56:30 Diagnosis?I63.89 - Cerebrovascular accident (CVA) due to other mechanism ([facility]) Impression 58F, hx of hld, htn, migraines, who had several recent admissions for worsening headaches and gait ataxia starting 01/2024, re-admitted 02/27 with aphasia, right-sided weakness, depressed LOC. She has had a number of MRIs as follows, as well as CSF sampling. MRI Brain w/o 01/20: punctate DWI positive right cerebellum, some scattered white matter disease MRI Brain w/o 02/27: no DWI lesions, worsening subcortical white matter disease MRI Brain w/ w/o 02/28: left BG DWI lesion, severe subcortical white matter disease, some basal cistern and temporal enhancement? 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 There was some question of sylvian fissure SAH - this does not appear in the CSF nor on SWI MRI (though this is motion degraded), suspicion is very low. At this point, would recommend stroke prevention with aspirin monotherapy and antimicrobials per ID. I cannot find results of EEG - would ensure this was done. Though it is not routine practice, there is some data to suggest adjunctive corticosteroid use in recurrent stroke associated with RISK MANAGEMENT ANALYST cocci (https://pmc.ncbi.nlm.nih.gov/articles/TKQ3619646/). If she has recurrent stroke, could consider trial of steroids. RECS: - aspirin 81mg - Repeat MRI Brain w/wo in ~7 days --> monitor for hydrocephalus, new infarcts - Ok for no statin given stroke mechanism, LDL at 35 and interaction with fluconazole - f/u EEG ? Our recommendations are outlined below Disposition :Neurology will follow Subjective Overall stable, per daughter at the bedside. ? Examination Neuro Exam: General:?awake, alert, attempting to speak but has severe dysarthria, appears to have severe aphasia as well Extraocular movements intact Has right hemiplegia Awake, Has some hyperkinetic movements particularly of the left face. Intermittently follows one-step commands. ? ? This consult was conducted in real time using interactive audio and video technology. Patient was informed of the technology being used for this visit and agreed to proceed. Patient located in hospital and provider located at home/office setting. Telehealth Neurology consultation was provided. I spent minutes providing telehealth care. This includes time spent for face to face visit via telemedicine, review of medical records, imaging studies and discussion of findings with providers, the patient and/or family. Dr Lorena Miguel [facility] For Inpatient follow-up with [facility] physician please call [facility] at . As we are not an outpatient service for any post hospital discharge needs please contact the hospital for assistance. If you have any questions for the [facility] physicians or need to reconsult for clinical or diagnostic changes please contact us via [facility] at ? ?
--- NOTE | 2024-03-07 16:38 | ESPR_ITS ---
<Statement entered by Lois Santiago MD - 03/08/24 06:03> I discussed with and supervised the internal security manager physician who took care of this patient. I personally saw and examined the patient and discussed the assessment and plan with the entire medicine team, including my attending , I agree with most of the assessment and plan as documented below Lois Santiago M.D. 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 Given patient's clinical status, daughter at bedside provided history. Father called daughter stating that patient was weak to get out of bed, then son went to see patient at 10 a.m. and patient was not responding to questions. EMS was called and patient was then brought to the ED. In ED, patient was noted to have right-sided hemiparesis, right-sided facial droop, and aphasia so stroke alert was called. Initial CT head showed concern for possible SAH versus artifact. However, patient not candidate for thrombolytics given recent stroke within last month and outside of window. Of note, patient discharged 02/03 after being admitted for gastroenteritis, found to have elevated CA 125, and was told to follow-up with Dr. Wetzel outpatient but had not been able to due to insurance issues. 02/28: No acute overnight events to report. Patient seen and examined in hospital bed with and daughter at bedside. Patient was difficult to arouse; however, eventually she woke up. Patient is nonverbal at this time but is able to track with his eyes and seems to understand questioning by giving a thumbs up sign. There is definite right-sided facial drooping noted when patient is asked to smile or opening her mouth. Teleneurology was consulted and the recommendation was to repeat MRI with contrast along with MRV. Telemetry neurology also recommends with discontinuing some of the empiric medications but to follow-up with ID which has also been consulted. Infectious disease recommends on discontinuing vancomycin to continue the other medications at this time. 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 03/01: No acute overnight events to report. Patient seen and examined this a.m. with mild neurologic improvement; patient is able to communicate minimally with 1-2 words but has persistent right-sided upper and lower extremity weakness, left-sided neglect and persistent facial droop. Repeat brain MRI with contrast was positive for 17 mm acute infarct of the left basal ganglia. Patient's family bedside question regarding her use of aspirin and Plavix after she got her first CVA on January 2024; they state that she took her medications as prescribed. Patient had a stroke even with antiplatelets on; teleneurology has been consulted and are following the patient closely. 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 Once patient makes some progress, she will need to be treated for H. pylori and she will need follow-up with Dr. Wetzel regarding pulmonary nodule 10 mm which was found on CT. 03/02: No acute overnight events. Dr. Hernandez has given recommendations to stop antibiotics, acyclovir, and statins (for the time being) for previous differential of diagnosis bacterial meningitis as they can negative interact with fluconazole clearance and at this point, bacterial etiology behind patient's clinical condition unlikely. Will plan to restart statin after fluconazole course ends next week. With regards to patient's untreated previously diagnosed H. pylori from 02/01/24, started triple therapy, namely protonix 40mg BID, clarithromycin 500mg BID, and amoxicillin 1g BID x14 days as per guidelines for H. pylori triple therapy treatment. Teleneurology saw the patient today and recommended routine EEG and to start aspirin 81mg PO qd, but to hold off on Plavix at this time, as Dr. Romero can not rule out fungal abscess secondary to coccidiomycosis as an etiology behind patient's condition. Lisinopril 10mg PO qd started for blood pressure control, thiamine 500mg IV BID started x2 days and will lower to 250mg IV BID x5 days afterwards. Ordered TSH, NH3, B6/B9/B12, A1c as further workup for patient's symptoms. 03/03: No acute overnight events. Patient working with speech and occupational therapy this morning, making small improvements each day. Still experiencing global aphasia and complete motorsensory loss of right half of her body, but alert, nods/shakes her head or gives thumbs up/down, and follows along in conversations. Continuining IV thiamine with last dosage tomorrow. No further recommendations from neurology. 03/04: No acute overnight events to report. Patient seen and examined in hospital bed with difficulty verbalizing; which is a new finding from previous days. As such, CT of head/brain without contrast has been ordered which showed suspicions for a subarachnoid hemorrhage still present in the right horizontal sylvian cistern and recommendations to get diagnostic lumbar puncture. Patient has had lumbar puncture which did not show any blood; thus, clinically suspicion remains low for subarachnoid hemorrhage. Will order a hypercoagulable order set as the patient developed a stroke even while being on aspirin and Plavix. Teleneurology following; appreciate recommendations regarding starting Plavix or not. Will continue fluconazole treatment for possible cocci meningitis/abscess; pending ID recommendations and cocci CSF studies. Patient will continue to be treated for H. pylori. 03/05: No acute overnight events to report. Patient seen and examined in hospital bed continuing to make incremental progress; however, still has difficulty ambulating right-sided upper and lower extremities, left-sided extremities slightly better. Patient able to verbalize very slowly with a couple words when spoken to in Welsh. Teleneurology is following the patient; they have recommended repeat LP which will be completed tomorrow (03/06) secondary to CT results which show still persistent subarachnoid hemorrhage. Our suspicions for an actual subarachnoid hemorrhage remain low as the patient had an lumbar puncture with did not show any signs of bleeding. Cocci CSF samples have been sent to [facility] and they are pending results per laboratory surgical sales representative. Will continue to monitor for any acute changes. Update: IR team would not like to proceed with the LP as an LP was already completed post-CT SAH finding. There was no sign of bleeding from CSF studies at that time; thus, per IR team acquiring another LP would be redundant and risky at this time. 03/06: No acute overnight events. Patient slowly regaining some speech and left- sided extremity function. Initially planned for repeat LP, but IR suggests against this, stating that it is redundant as patient has already had an LP during this admission. Pending [facility] cocci studies. Per our labaratory, [facility] lab has received the CSF samples and are in the process of analyzing. EEG taken, results pending. Patient's mild hyponatremia worsening day by day, ordered urine osmolality and osmolytes to evaluate for possible salt-wasting. 03/07: No acute overnight events. CSF samples positive for coccidioides IgG and complement fixation. Microphone Boom Operator Dr. Paz seen for patient's hyponatremia, recommendations are to continue monitoring as patient's sodium stable this morning. Teleneurologist Dr. 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 Recommendations are to continue aspirin monotherapy, hold plavix at this time, and to repeat MRI in one week post-discharge. Anticipate discharge in next 24-48h. Exam Vital Signs Temp Pulse Resp BP Pulse Ox O2 Del Method 97.8 F 59 L 18 109/63 97 Room Air 03/07/24 16:00 03/07/24 16:00 03/07/24 16:00 03/07/24 16:00 03/07/24 16:00 03/07/24 16:00 Narrative Exam Gen: Alert, appears stated age, in no acute distress, able to respond to questions with thumbs up or down, attempts to verbally answer questions but speech very slurred and slow-starting HEENT: NCAT, PERRLA, EOMI, MMM, anicteric conjunctivae, right-sided facial droop present CVS: normal S1 and S2. RRR. No M/R/G. Resp: CTA B/L. No rhonchi, rales, crackles or wheezing. Abd: soft, non-tender, non-distended. BS+ in all 4 quadrants. MSK: Limited range of motion of extremities, no motion in right extremities. No edema or rash. Neuro: Speech severely slurred, eyes tracking individuals in room as they move, GCS 12 ([id number]), right-sided strength 0/5, left-sided strength improved from 2/5 to 3/5, right-sided facial droop present Objective Labs 03/08/24 04:30 03/08/24 04:30 Labs: Laboratory Results - last 24 hr 03/07/24 03/07/24 04:15 04:50 WBC 7.2 RBC 3.64 L Hgb 11.6 L Hct 33.3 L MCV 92 MCH 31.9 MCHC 34.8 RDW Std Deviation 45.7 Plt Count 295 D Neut % (Auto) 61 Lymph % (Auto) 26 [place] % (Auto) 11 Eos % (Auto) 2 Baso % (Auto) 1 Neut # (Auto) 4.4 Lymph # (Auto) 1.9 [place] # (Auto) 0.8 Eos # (Auto) 0.1 Baso # (Auto) 0.0 Immature Gran # (Auto) 0.07 H Absolute Nucleated RBC 0.00 Immature Gran % 1 H Nucleated RBC % 0 Sodium 127 L Potassium 3.3 L Chloride 96 L Carbon Dioxide 24.5 Anion Gap 7 BUN 6 L Creatinine 0.5 L Estim Creat Clear Calc 95.8 eGFR > 60 BUN/Creatinine Ratio 12 Glucose 105 Calculated Osmolality 252 L Calcium 9.5 Corrected Calcium 9.6 Magnesium 1.9 Total Bilirubin 1.3 H AST 17 ALT 26 Alkaline Phosphatase 80 Total Protein 6.6 Albumin 3.9 Globulin 2.7 Albumin/Globulin Ratio 1.4 Ur Random Creatinine 39 Ur Random Sodium 19.4 L Quality Measures Quality Measures none Assessment & Plan Assessment Current Active Medications: Generic Name Dose Route Start Last Admin Trade Name Freq PRN Reason Stop Dose Admin Amoxicillin 1,000 mg 03/02/24 21:00 03/07/24 08:37 Amoxicillin 250 Mg Capsule PO 03/16/24 21:59 1,000 mg BID ROGER Administration Aspirin 81 mg 03/01/24 13:30 03/05/24 08:47 Aspirin Ec 81 Mg Tabec PO 03/31/24 13:29 81 mg QDAY ROGER Administration Clarithromycin 500 mg 03/02/24 21:00 03/07/24 08:36 Clarithromycin 250 Mg Tablet PO 03/16/24 20:59 500 mg BID ROGER Administration Fluconazole 800 mg 03/02/24 21:00 03/06/24 20:41 Fluconazole 100 Mg Tablet PO 03/09/24 20:59 800 mg HS ROGER Administration Lisinopril 10 mg 03/02/24 11:15 03/07/24 08:37 Lisinopril 2.5 Mg Tablet PO 04/01/24 11:14 10 mg QDAY ROGER Administration Ondansetron HCl 4 mg 02/28/24 14:28 Ondansetron Inj 2 Mg/Ml Inj 2 Ml IV 03/29/24 14:27 Q4HR PRN NAUSEA OR VOMITING Pantoprazole Sodium 40 mg 03/02/24 21:00 03/07/24 08:37 Pantoprazole 40 Mg Tablet PO 03/16/24 20:59 40 mg BID ROGER Administration Sennosides 1 tab 02/29/24 16:17 Senna Tablet PO 03/30/24 16:16 QDAY PRN CONSTIPATION Protocol Plan 58-year-old female with a past medical history of hypertension, hyperlipidemia, fibromyalgia, migraines, and 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 Given patient's clinical status, daughter at bedside provided history. Father called daughter stating that patient was weak to get out of bed, then son went to see patient at 10 a.m. and patient was not responding to questions. EMS was called and patient was then brought to the ED. In ED, patient was noted to have right-sided hemiparesis, right-sided facial droop, and aphasia so stroke alert was called. Initial CT head showed concern for possible SAH versus artifact. However, patient not candidate for thrombolytics given recent stroke within last month and outside of window. Of note, patient discharged 02/03 after being admitted for gastroenteritis, found to have elevated CA 125, and was told to follow-up with Dr. Wetzel outpatient but had not been able to due to insurance issues. 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 Repeat MRI with contrast demonstrated 17mm acute infarct of left basal ganglia Patient has history of Cocci IgM and IgG CSF is clear, colorless with 72 WBC and 23 RBC, 5 mononuclear WBC and 95 polynuclear WBC, glucose low at 27 and total protein elevated at 179. CSF influenza, meningitis, strep negative pending mild protein only with no bands and cocci Venogram MRI degraded study Speech therapy recommends extensive speech therapy for months PT recommends acute rehab placement Lipid panel, TSH, NH3, B6/B9/B12, and A1c were ordered for further evaluation, all were within normal limits Repeat CT Head/Brain findings remained suspicious for SAH; however LP was negative for blood (low RBC count) and was clear Plan: - Teleneurology consulted and following, appreciate recommendations - ID consulted, Dr. Hernandez following - Continue aspirin 81mg PO qd - Continue Fluconazole 800mg PO HS for confirmed coccidioides - EEG taken, pending results - Neurochecks q4h - DVT prophylaxis - Head of bed 30 degrees - Euglycemia and avoid hyperthermia - Follow-up CSF analysis - Holding off on Plavix at this time per teleneurology's recommendations, continue aspirin monotherapy - Teleneurology recommending to continue holding statin as patient's LDL is low and cholesterol an unlikely mechanism for current presentation - Teleneurology recommends repeat MRI head in one week - Hypercoagulable workup sent and still pending; patient developed stroke while on asp/plavix (homocysteine, protein c/s, factor V leiden, fibrinogen) #Euvolemic Hyponatremia Patient slowly developing hyponatremia since admission, lowering approximately 1-2 mEq Na per day. On morning of 03/06, Na 128, and on recheck at 2PM, 126. Patient is likely euvolemic. Initially suspected hyponatremia to be due to poor oral intake, but patient has been tolerating her cardiac diet well and working with speech therapy daily. - Nephrology Dr. Paz consulted, appreciate recommendations - Recommendations are to continue monitoring sodium level daily - Urine studies including urine sodium, creatinine, and osmolality ordered for evaluation of possible salt-wasting, results are within normal limits - Will recheck in AM #H. 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 Pompa was consulted time, completed EGD and biopsy Pathology confirmed H. pylori infection Patient's family states that she was never treated for H. pylori after discharge and never followed up outpatient with PCP or Dr. Peña Wetzel was also consulted due to Elevated CA 125 and CA 19?9 pending Plan: - Continue triple therapy for tx of H. pylori infection: protonix 40mg PO BID, clarithromycin 500mg PO BID, and amoxicillin 1g PO BID x 14 days - Follow-up with oncologist Dr. Wetzel outpatient for further evaluation of possible GI malignancy as seen by elevated cancer markers in serum #10mm Pulmonary Nodule 10mm pulmonary nodule right lower lobe as seen on CT chest/abdomen/pelvis during hospitalization in mid January for GI symptoms Radiology recommended at that time for 6-month follow-up CT Plan: - Follow up outpatient for repeat imaging #Hypertension #Hyperlipidemia #Fibromyalgia #Migraines All chronic conditions present prior to admission Plan: - Continue home dose of lisinopril 10mg PO qd - Holding statin at this time as fluconazole has a known adverse effect of significantly increasing levels of serum statin - Continue to monitor Health Maintenance: Disposition: Med surg, anticipate discharge in next 24-48h Diet: Cardiac diet GI prophylaxis: None indicated DVT prophylaxis: Lovenox 40mg SubQ qd Code: Full code Case disclosed with Attending Dr. Izaguirre and my seniors Dr. Mata and Dr. Santiago. Steven Pennington PGY1 LI discussed with and supervised the internal security manager physician who took care of this patient. I personally saw and examined the patient and discussed the assessment and plan with the entire medicine team, including my attending Dr. González Izaguirre MD. I agree with the assessment and plan as documented above. Mike Mata M.D. Internal Medicine PGY-3 Attending Provider Attestation/Addendum I have examined the patient, reviewed labs and imaging findings, discussed the case with the resident(s), and reviewed entered orders. I agree with the plan of care as outlined in this note, with these additional summaries/recommendations: Patient seen at bedside. No acute overnight events. 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 Continue fluconazole and patient will need indefinitely. Patient also found to have CVA and currently holding anticoagulation out of concern for previous brain bleed although this has been ruled out previously and appreciate telemetry neuro recs on resuming anticoagulation. Holding high intensity statin while on fluconazole and likely will not be able to initiate. Patient developed decreasing sodium yesterday which downtrended to 126 and has increased to 127. Nephrology consulted and recommendations appreciated. Mild hypokalemia and replacement given. Anticipate discharge in the next 24 to 48 hours if sodium stays stable. Dr. Izaguirre
[2024-03-07] MEDS: FLUCONAZOLE 100 MG TABLET 800 MG PO (22:14)
[2024-03-08] VITALS (13 sets, daily range): BP systolic 94–127; BP diastolic 61–78; PULSE 68–85; RESP 12–17; TEMP 36.2–36.7; O2SAT 96–98; BMI 21.9; BMI 12.0
--- NOTE | 2024-03-08 05:11 | PD.TNEEG ---
EEG Report EEG Interpretation [facility] Routine EEG Report Video Performed: Not performed Demographics:Patient Name:???Neda Schroeder Date of :???1965 Identification Number:??? Study Times: Duration:???23?minutes Indication(s):Spells, Eval for Seizures, Encephalopathy Technical Summary: This EEG was performed utilizing standard International 10-20 System of electrode placement. Data were obtained and interpreted utilizing referential montage recording, with reformatting to longitudinal, transverse bipolar, and referential montages as necessary for interpretation. State(s): ?Drowsy Activation Procedures: Hyperventilation:?Not performedPhotic Stimulation:?Not performed EEG Description: No normal patterns of awake or sleep were present during this recording. Intermittent generalized theta-delta slowing was present. Excess continuous generalized theta-delta slowing was present. Muscle, motion, electrode, and eye movement artifacts were occasionally noted and precluded a more thorough interpretation of the data. Impression: Abnormal EEG due to: ? ?1) No normal patterns of awake or sleep ?2) Intermittent generalized theta-delta slowing ?3) Continuous generalized theta-delta slowing ? Clinical Correlation: This EEG is suggestive of a moderate encephalopathy, but is nonspecific as to etiology. The absence of epileptiform abnormalities does not preclude a clinical diagnosis of seizures. Occasional severe artifact precluded a more thorough interpretation of the data. Dr Jurgen Villarreal [facility] For Inpatient follow-up with [facility] physician please call [facility] at . As we are not an outpatient service for any post hospital discharge needs please contact the hospital for assistance. If you have any questions for the [facility] physicians or need to reconsult for clinical or diagnostic changes please contact us via [facility] at .
[2024-03-08 06:07] LABS: Basophils % (Auto) 1 % (0-2.5); Eosinophils # (Auto) 0.1 Thou/mm3 (0.0-0.5); Eosinophils % (Auto) 1 % (0-10); Hematocrit 36.3 % (36.0-46.0); Hemoglobin 12.4 g/dL (12.0-16.0); Immature Granulocytes % (Auto) 1 % (0-0); Immature Granulocytes Auto 0.06 Thou/mm3 (0.00-0.00); Lymphocytes # (Auto) 1.8 Thou/mm3 (1.0-4.8); Lymphocytes % (Auto) 26 % (10-50); Mean Corpuscular HGB Conc 34.2 g/dl (31.0-37.0); Mean Corpuscular Hemoglobin 31.7 pg (25.0-35.0); Mean Corpuscular Volume 93 fL (80-100); Monocytes # (Auto) 0.8 Thou/mm3 (0.0-0.8); Monocytes % (Auto) 11 % (0-12); Neutrophils # (Auto) 4.2 Thou/mm3 (1.8-7.7); Neutrophils % (Auto) 60 % (37-80); Nucleated Red Blood Cell % 0 /100 WBC (0); Platelet Count 286 Thou/mm3 (140-440); RDW Standard Deviation 47.8 fL (36.4-46.3); Red Blood Count 3.91 Miln/mm3 (4.00-5.20); White Blood Count 6.9 Thou/mm3 (3.6-11.0)
[2024-03-08 06:45] LABS: Protein C Activity* 123 % normal (70-180); Protein C Antigen, Total* 114 % normal (70-140); Protein S Activity* 98 % normal (60-140); Protein S Antigen, Total* 93 % normal (70-140)
[2024-03-08 06:59] LABS: Alanine Aminotransferase 24 U/L (10-49); Albumin/Globulin Ratio 1.4 (1.2-2.2); Alkaline Phosphatase 80 U/L (46-116); Anion Gap 5 (7-16); Aspartate Amino Transferase 18 U/L (0-34); BUN/Creatinine Ratio 12 Ratio (12-20); Bilirubin,Total 1.2 mg/dL (0.3-1.2); Blood Urea Nitrogen 6 mg/dL (9-23); Calcium 9.7 mg/dL (8.3-10.6); Calcium (Corrected) 9.7 mg/dL (8.5-10.1); Carbon Dioxide 24.6 mMol/L (20.0-31.0); Chloride 97 mMol/L (98-107); Creatinine (Component) 0.5 mg/dL (0.6-1.3); Estimated Creatinine Clearance 95.8 mL/min (>60); Globulin 2.8 gm/dL (2.3-3.5); Glucose 103 mg/dL (74-106); Osmolality,Calculated 252 (275-295); Potassium 3.6 mMol/L (3.4-5.1); Sodium 127 mMol/L (136-145); Total Protein 6.8 gm/dL (5.7-8.2); eGFR > 60 See Note
--- NOTE | 2024-03-08 09:39 | PD.RESPRO ---
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 Given patient's clinical status, daughter at bedside provided history. Father called daughter stating that patient was weak to get out of bed, then son went to see patient at 10 a.m. and patient was not responding to questions. EMS was called and patient was then brought to the ED. In ED, patient was noted to have right-sided hemiparesis, right-sided facial droop, and aphasia so stroke alert was called. Initial CT head showed concern for possible SAH versus artifact. However, patient not candidate for thrombolytics given recent stroke within last month and outside of window. Of note, patient discharged 02/03 after being admitted for gastroenteritis, found to have elevated CA 125, and was told to follow-up with Dr. Wetzel outpatient but had not been able to due to insurance issues. Patient nonverbal at this time but is able to track with his eyes and seems to understand questioning by giving a thumbs up sign. There is definite right-sided facial drooping noted when patient is asked to smile or opening her mouth. Teleneurology was consulted and the recommendation was to repeat MRI with contrast along with MRV. Telemetry neurology also recommends with discontinuing some of the empiric medications but to follow-up with ID which has also been consulted. Infectious disease recommends on discontinuing vancomycin to continue the other medications at this time. Patient is able to communicate minimally with 1-2 words but has persistent right-sided upper and lower extremity weakness, left-sided neglect and persistent facial droop. Repeat brain MRI with contrast was positive for 17 mm acute infarct of the left basal ganglia. Dr. Hernandez has given recommendations to stop antibiotics, acyclovir, and statins (for the time being) for previous differential of diagnosis bacterial meningitis as they can negative interact with fluconazole clearance and at this point, bacterial etiology behind patient's clinical condition unlikely. Teleneurology saw the patient and recommended routine EEG and to start aspirin 81mg PO qd, but to hold off on Plavix at this time. Patient has had lumbar puncture which did not show any blood. Patient able to verbalize very slowly with a couple words when spoken to in [place]. Patient slowly regaining some speech and left-sided extremity function. Patient's mild hyponatremia worsening day by day. Nephrology consulted for worsening hyponatremia, concern for salt wasting syndrome. Patient seen and examined on the floors, resting comfortably in bed. Eating soft foods slowly with assistance. Patient minimally verbal, gave one-word answers. Patient follow commands appropriately. Patient showed severe right sided weakness. Serum osmolality 252. Serum sodium 127, improved from yesterday. BUN 6, creatinine 0.5, eGFR >60. Urine sodium 19.4. Will continue to monitor sodium levels. 03/08: Patient seen and examined on the floors. Patient resting comfortably in bed. Patient able to give occasional one-word answers. Follows commands commands appropriately. Sodium 127, potassium 3.6, bicarb 24.6, BUN 6, creatinine 0.5, eGFR >60. Will continue to monitor. Exam Vital Signs Temp Pulse Resp BP Pulse Ox O2 Del Method 97.1 F 78 17 126/72 97 Room Air 03/08/24 07:26 03/08/24 07:26 03/08/24 07:26 03/08/24 07:26 03/08/24 07:26 03/08/24 07:26 Narrative Exam PE: Gen: Well-developed and well-nourished. HEENT: NCAT, PERRLA, EOMI, MMM, anicteric conjunctivae. Right sided facial droop. CVS: normal S1 and S2. RRR. No M/R/G. Resp: CTA B/L. No rhonchi, rales, crackles or wheezing. Abd: soft, non-tender, non-distended. MSK: Good ROM in LUE & LLE. No edema or rash. Minimal movement in right upper and lower extremities due to neurological deficit. Neuro: CN II-XII grossly intact. Strength 4/5 in LUE & LLE. Alert and oriented x3. Strength 1/5 in right upper and lower extremity. Aphasic, can give one-word answers. Follows commands. Objective Labs 03/08/24 04:30 03/08/24 04:30 Labs: Laboratory Results - last 24 hr 03/04/24 03/08/24 15:40 04:30 WBC 6.9 RBC 3.91 L Hgb 12.4 Hct 36.3 MCV 93 MCH 31.7 MCHC 34.2 RDW Std Deviation 47.8 H Plt Count 286 Neut % (Auto) 60 Lymph % (Auto) 26 [place] % (Auto) 11 Eos % (Auto) 1 Baso % (Auto) 1 Neut # (Auto) 4.2 Lymph # (Auto) 1.8 [place] # (Auto) 0.8 Eos # (Auto) 0.1 Baso # (Auto) 0.0 Immature Gran # (Auto) 0.06 H Absolute Nucleated RBC 0.00 Immature Gran % 1 H Nucleated RBC % 0 Protein C Antigen 114 Protein C Activity 123 Protein S Activity 98 Total Protein S Ag 93 Sodium 127 L Potassium 3.6 Chloride 97 L Carbon Dioxide 24.6 Anion Gap 5 L BUN 6 L Creatinine 0.5 L Estim Creat Clear Calc 95.8 eGFR > 60 BUN/Creatinine Ratio 12 Glucose 103 Calculated Osmolality 252 L Calcium 9.7 Corrected Calcium 9.7 Magnesium 2.0 Total Bilirubin 1.2 AST 18 ALT 24 Alkaline Phosphatase 80 Total Protein 6.8 Albumin 4.0 Globulin 2.8 Albumin/Globulin Ratio 1.4 Quality Measures Quality Measures none Assessment & Plan Assessment Current Active Medications: Generic Name Dose Route Start Last Admin Trade Name Freq PRN Reason Stop Dose Admin Amoxicillin 1,000 mg 03/02/24 21:00 03/07/24 22:15 Amoxicillin 250 Mg Capsule PO 03/16/24 21:59 1,000 mg BID ROGER Administration Aspirin 81 mg 03/01/24 13:30 03/05/24 08:47 Aspirin Ec 81 Mg Tabec PO 03/31/24 13:29 81 mg QDAY ROGER Administration Clarithromycin 500 mg 03/02/24 21:00 03/07/24 22:13 Clarithromycin 250 Mg Tablet PO 03/16/24 20:59 500 mg BID ROGER Administration Fluconazole 800 mg 03/02/24 21:00 03/07/24 22:14 Fluconazole 100 Mg Tablet PO 03/09/24 20:59 800 mg HS ROGER Administration Lisinopril 10 mg 03/02/24 11:15 03/07/24 08:37 Lisinopril 2.5 Mg Tablet PO 04/01/24 11:14 10 mg QDAY ROGER Administration Ondansetron HCl 4 mg 02/28/24 14:28 Ondansetron Inj 2 Mg/Ml Inj 2 Ml IV 03/29/24 14:27 Q4HR PRN NAUSEA OR VOMITING Pantoprazole Sodium 40 mg 03/02/24 21:00 03/07/24 22:17 Pantoprazole 40 Mg Tablet PO 03/16/24 20:59 40 mg BID ROGER Administration Sennosides 1 tab 02/29/24 16:17 Senna Tablet PO 03/30/24 16:16 QDAY PRN CONSTIPATION Protocol Plan 58-year-old female with a past medical history of hypertension, hyperlipidemia, fibromyalgia, migraines, and 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 #Euvolemic Hyponatremia Patient slowly developing hyponatremia since admission, lowering approximately 1-2 mEq Na per day. On morning of 03/06, Na 128, and on recheck at 2PM, 126. Nephrology consulted to eval for hyponatremia, possible salt wasting syndrome. Patient tolerating p.o. intake well. Following day sodium improved to 127, urine sodium 19.4. Osmolality 252. Creatinine 0.5, BUN 16, eGFR > 60. 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 pylori infection #GI malignancy, possible #10mm Pulmonary Nodule #Hypertension #Hyperlipidemia #Fibromyalgia #Migraines Management as per primary team. DVT prophylaxis: None, concern for possible intracranial hemorrhage GI prophylaxis: Protonix Diet: Cardiac Lines: Peripheral IV Code status: Full code Thank you for allow me to participate in the care of this patient. Plan of care discussed with attending Dr. Paz. Devyn Henning MD PGY-1 Attending Provider Attestation/Addendum Patient seen and examined with resident physician Dr. Andrews. Note reviewed, agree with findings and recommendations. Patient with a dense right dense hemiplegia. Sister at bedside. Sodium 127. Creatinine 0.5.
[2024-03-08] MEDS: AMOXICILLIN 250 MG CAPSULE 1000 MG PO ×2 (09:45→20:16)
[2024-03-08] MEDS: ASPIRIN EC 81 MG TABEC PO (09:45)
[2024-03-08] MEDS: Lisinopril 2.5 MG TABLET 10 MG PO (09:46)
[2024-03-08] MEDS: CLARITHROMYCIN 250 MG TABLET 500 MG PO ×2 (09:46→20:16)
[2024-03-08] MEDS: PANTOPRAZOLE 40 MG TABLET PO ×2 (09:47→20:16)
--- NOTE | 2024-03-08 14:55 | PC.SS ---
Follow up note: SS sent updated notes to [facility] acute rehab. They will review and let me know if they can accept patient now. If not, patient will need a lower level. D/c tentatively for Tuesday.
--- NOTE | 2024-03-08 15:39 | ESPR_ITS ---
<Statement entered by Lois Santiago MD - 03/09/24 19:13> I discussed with and supervised the quality intern physician who took care of this patient. I personally saw and examined the patient and discussed the assessment and plan with the entire medicine team, including my attending , I agree with most of the assessment and plan as documented below Lois Santiago M.D. 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 Given patient's clinical status, daughter at bedside provided history. Father called daughter stating that patient was weak to get out of bed, then son went to see patient at 10 a.m. and patient was not responding to questions. EMS was called and patient was then brought to the ED. In ED, patient was noted to have right-sided hemiparesis, right-sided facial droop, and aphasia so stroke alert was called. Initial CT head showed concern for possible SAH versus artifact. However, patient not candidate for thrombolytics given recent stroke within last month and outside of window. Of note, patient discharged 02/03 after being admitted for gastroenteritis, found to have elevated CA 125, and was told to follow-up with Dr. Wetzel outpatient but had not been able to due to insurance issues. 02/28: No acute overnight events to report. Patient seen and examined in hospital bed with and daughter at bedside. Patient was difficult to arouse; however, eventually she woke up. Patient is nonverbal at this time but is able to track with his eyes and seems to understand questioning by giving a thumbs up sign. There is definite right-sided facial drooping noted when patient is asked to smile or opening her mouth. Teleneurology was consulted and the recommendation was to repeat MRI with contrast along with MRV. Telemetry neurology also recommends with discontinuing some of the empiric medications but to follow-up with ID which has also been consulted. Infectious disease recommends on discontinuing vancomycin to continue the other medications at this time. 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 03/01: No acute overnight events to report. Patient seen and examined this a.m. with mild neurologic improvement; patient is able to communicate minimally with 1-2 words but has persistent right-sided upper and lower extremity weakness, left-sided neglect and persistent facial droop. Repeat brain MRI with contrast was positive for 17 mm acute infarct of the left basal ganglia. Patient's family bedside question regarding her use of aspirin and Plavix after she got her first CVA on January 2024; they state that she took her medications as prescribed. Patient had a stroke even with antiplatelets on; teleneurology has been consulted and are following the patient closely. 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 Once patient makes some progress, she will need to be treated for H. pylori and she will need follow-up with Dr. Wetzel regarding pulmonary nodule 10 mm which was found on CT. 03/02: No acute overnight events. Dr. Hernandez has given recommendations to stop antibiotics, acyclovir, and statins (for the time being) for previous differential of diagnosis bacterial meningitis as they can negative interact with fluconazole clearance and at this point, bacterial etiology behind patient's clinical condition unlikely. Will plan to restart statin after fluconazole course ends next week. With regards to patient's untreated previously diagnosed H. pylori from 02/01/24, started triple therapy, namely protonix 40mg BID, clarithromycin 500mg BID, and amoxicillin 1g BID x14 days as per guidelines for H. pylori triple therapy treatment. Teleneurology saw the patient today and recommended routine EEG and to start aspirin 81mg PO qd, but to hold off on Plavix at this time, as Dr. Romero can not rule out fungal abscess secondary to coccidiomycosis as an etiology behind patient's condition. Lisinopril 10mg PO qd started for blood pressure control, thiamine 500mg IV BID started x2 days and will lower to 250mg IV BID x5 days afterwards. Ordered TSH, NH3, B6/B9/B12, A1c as further workup for patient's symptoms. 03/03: No acute overnight events. Patient working with speech and occupational therapy this morning, making small improvements each day. Still experiencing global aphasia and complete motorsensory loss of right half of her body, but alert, nods/shakes her head or gives thumbs up/down, and follows along in conversations. Continuining IV thiamine with last dosage tomorrow. No further recommendations from neurology. 03/04: No acute overnight events to report. Patient seen and examined in hospital bed with difficulty verbalizing; which is a new finding from previous days. As such, CT of head/brain without contrast has been ordered which showed suspicions for a subarachnoid hemorrhage still present in the right horizontal sylvian cistern and recommendations to get diagnostic lumbar puncture. Patient has had lumbar puncture which did not show any blood; thus, clinically suspicion remains low for subarachnoid hemorrhage. Will order a hypercoagulable order set as the patient developed a stroke even while being on aspirin and Plavix. Teleneurology following; appreciate recommendations regarding starting Plavix or not. Will continue fluconazole treatment for possible cocci meningitis/abscess; pending ID recommendations and cocci CSF studies. Patient will continue to be treated for H. pylori. 03/05: No acute overnight events to report. Patient seen and examined in hospital bed continuing to make incremental progress; however, still has difficulty ambulating right-sided upper and lower extremities, left-sided extremities slightly better. Patient able to verbalize very slowly with a couple words when spoken to in Bel[place]ian. Teleneurology is following the patient; they have recommended repeat LP which will be completed tomorrow (03/06) secondary to CT results which show still persistent subarachnoid hemorrhage. Our suspicions for an actual subarachnoid hemorrhage remain low as the patient had an lumbar puncture with did not show any signs of bleeding. Cocci CSF samples have been sent to [facility] and they are pending results per laboratory industrial relations representative. Will continue to monitor for any acute changes. Update: IR team would not like to proceed with the LP as an LP was already completed post-CT SAH finding. There was no sign of bleeding from CSF studies at that time; thus, per IR team acquiring another LP would be redundant and risky at this time. 03/06: No acute overnight events. Patient slowly regaining some speech and left- sided extremity function. Initially planned for repeat LP, but IR suggests against this, stating that it is redundant as patient has already had an LP during this admission. Pending [facility] cocci studies. Per our labaratory, [facility] lab has received the CSF samples and are in the process of analyzing. EEG taken, results pending. Patient's mild hyponatremia worsening day by day, ordered urine osmolality and osmolytes to evaluate for possible salt-wasting. 03/07: No acute overnight events. CSF samples positive for coccidioides IgG and complement fixation. Caramel Maker Dr. Paz seen for patient's hyponatremia, recommendations are to continue monitoring as patient's sodium stable this morning. Teleneurologist Dr. 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 Recommendations are to continue aspirin monotherapy, hold plavix at this time, and to repeat MRI in one week post-discharge. Anticipate discharge in next 24-48h. 03/08: No acute overnight events. EEG was performed which demonstrated moderate encephalopathy of nonspecific etiology. Teleneurology recommending to hold off on statin as patient will be on fluconazole for life, and patient's LDL values are under control as is. [facility] rehab states that they would like patient to stay inpatient today in order to facilitate further progress with PT/OT/LENS AND [employer] PRESCRIPTION CLERK. Hyponatremia stable today. Exam Vital Signs Temp Pulse Resp BP Pulse Ox O2 Del Method 97.2 F 77 15 127/65 98 Room Air 03/08/24 11:46 03/08/24 11:46 03/08/24 11:46 03/08/24 11:46 03/08/24 11:46 03/08/24 11:46 Narrative Exam Gen: Alert, appears stated age, in no acute distress, able to respond to questions with thumbs up or down, attempts to verbally answer questions but speech very slurred and slow-starting HEENT: NCAT, PERRLA, EOMI, MMM, anicteric conjunctivae, right-sided facial droop present CVS: normal S1 and S2. RRR. No M/R/G. Resp: CTA B/L. No rhonchi, rales, crackles or wheezing. Abd: soft, non-tender, non-distended. BS+ in all 4 quadrants. MSK: Limited range of motion of extremities, no motion in right extremities. No edema or rash. Neuro: Speech severely slurred, eyes tracking individuals in room as they move, GCS 12 ([id number]), right-sided strength 0/5, left-sided strength improved from 2/5 to 3/5, right-sided facial droop present Objective Labs 03/09/24 05:52 03/09/24 05:52 Labs: Laboratory Results - last 24 hr 03/04/24 03/08/24 15:40 04:30 WBC 6.9 RBC 3.91 L Hgb 12.4 Hct 36.3 MCV 93 MCH 31.7 MCHC 34.2 RDW Std Deviation 47.8 H Plt Count 286 Neut % (Auto) 60 Lymph % (Auto) 26 [place] % (Auto) 11 Eos % (Auto) 1 Baso % (Auto) 1 Neut # (Auto) 4.2 Lymph # (Auto) 1.8 [place] # (Auto) 0.8 Eos # (Auto) 0.1 Baso # (Auto) 0.0 Immature Gran # (Auto) 0.06 H Absolute Nucleated RBC 0.00 Immature Gran % 1 H Nucleated RBC % 0 Protein C Antigen 114 Protein C Activity 123 Protein S Activity 98 Total Protein S Ag 93 Sodium 127 L Potassium 3.6 Chloride 97 L Carbon Dioxide 24.6 Anion Gap 5 L BUN 6 L Creatinine 0.5 L Estim Creat Clear Calc 95.8 eGFR > 60 BUN/Creatinine Ratio 12 Glucose 103 Calculated Osmolality 252 L Calcium 9.7 Corrected Calcium 9.7 Magnesium 2.0 Total Bilirubin 1.2 AST 18 ALT 24 Alkaline Phosphatase 80 Total Protein 6.8 Albumin 4.0 Globulin 2.8 Albumin/Globulin Ratio 1.4 Quality Measures Quality Measures none Assessment & Plan Assessment Current Active Medications: Generic Name Dose Route Start Last Admin Trade Name Jabierq PRN Reason Stop Dose Admin Amoxicillin 1,000 mg 03/02/24 21:00 03/08/24 09:45 Amoxicillin 250 Mg Capsule PO 03/16/24 21:59 1,000 mg BID ROGER Administration Aspirin 81 mg 03/01/24 13:30 03/08/24 09:45 Aspirin Ec 81 Mg Tabec PO 03/31/24 13:29 81 mg QDAY ROGER Administration Clarithromycin 500 mg 03/02/24 21:00 03/08/24 09:46 Clarithromycin 250 Mg Tablet PO 03/16/24 20:59 500 mg BID ROGER Administration Fluconazole 800 mg 03/02/24 21:00 03/07/24 22:14 Fluconazole 100 Mg Tablet PO 03/09/24 20:59 800 mg HS ROGER Administration Lisinopril 10 mg 03/02/24 11:15 03/08/24 09:46 Lisinopril 2.5 Mg Tablet PO 04/01/24 11:14 10 mg QDAY ROGER Administration Ondansetron HCl 4 mg 02/28/24 14:28 Ondansetron Inj 2 Mg/Ml Inj 2 Ml IV 03/29/24 14:27 Q4HR PRN NAUSEA OR VOMITING Pantoprazole Sodium 40 mg 03/02/24 21:00 03/08/24 09:47 Pantoprazole 40 Mg Tablet PO 03/16/24 20:59 40 mg BID ROGER Administration Sennosides 1 tab 02/29/24 16:17 Senna Tablet PO 03/30/24 16:16 QDAY PRN CONSTIPATION Protocol Plan 58-year-old female with a past medical history of hypertension, hyperlipidemia, fibromyalgia, migraines, and 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 Given patient's clinical status, daughter at bedside provided history. Father called daughter stating that patient was weak to get out of bed, then son went to see patient at 10 a.m. and patient was not responding to questions. EMS was called and patient was then brought to the ED. In ED, patient was noted to have right-sided hemiparesis, right-sided facial droop, and aphasia so stroke alert was called. Initial CT head showed concern for possible SAH versus artifact. However, patient not candidate for thrombolytics given recent stroke within last month and outside of window. Of note, patient discharged 02/03 after being admitted for gastroenteritis, found to have elevated CA 125, and was told to follow-up with Dr. Wetzel outpatient but had not been able to due to insurance issues. 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 Repeat MRI with contrast demonstrated 17mm acute infarct of left basal ganglia Patient has history of Cocci IgM and IgG CSF is clear, colorless with 72 WBC and 23 RBC, 5 mononuclear WBC and 95 polynuclear WBC, glucose low at 27 and total protein elevated at 179. CSF influenza, meningitis, strep negative pending mild protein only with no bands and cocci Venogram MRI degraded study Speech therapy recommends extensive speech therapy for months PT recommends acute rehab placement Lipid panel, TSH, NH3, B6/B9/B12, and A1c were ordered for further evaluation, all were within normal limits Repeat CT Head/Brain findings remained suspicious for SAH; however LP was negative for blood (low RBC count) and was clear Plan: - Neurologist Dr. Santiago consulted, appreciate recommendations - ID consulted, Dr. Hernandez following - Continue aspirin 81mg PO qd - Continue Fluconazole 800mg PO HS for confirmed coccidioides - EEG taken, positive only for moderate encephalopathy of nonspecific etiology - Neurochecks q4h - DVT prophylaxis - Head of bed 30 degrees - Euglycemia and avoid hyperthermia - Holding off on Plavix at this time per teleneurology's recommendations, continue aspirin monotherapy - Teleneurology recommending to continue holding statin as patient's LDL is low and cholesterol an unlikely mechanism for current presentation - Teleneurology recommends repeat MRI head in one week - Protein C and S studies unremarkable, pending factor V studies #Euvolemic Hyponatremia Patient slowly developing hyponatremia since admission, lowering approximately 1-2 mEq Na per day. On morning of 03/06, Na 128, and on recheck at 2PM, 126. Patient is likely euvolemic. Initially suspected hyponatremia to be due to poor oral intake, but patient has been tolerating her cardiac diet well and working with speech therapy daily. - Nephrology Dr. Paz consulted, appreciate recommendations - Recommendations are to continue monitoring sodium level daily - Will recheck in AM #H. 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 Pompa was consulted time, completed EGD and biopsy Pathology confirmed H. pylori infection Patient's family states that she was never treated for H. pylori after discharge and never followed up outpatient with PCP or Dr. Peña Wetzel was also consulted due to Elevated CA 125 and CA 19?9 pending Plan: - Continue triple therapy for tx of H. pylori infection: protonix 40mg PO BID, clarithromycin 500mg PO BID, and amoxicillin 1g PO BID x 14 days - Follow-up with oncologist Dr. Wetzel outpatient for further evaluation of possible GI malignancy as seen by elevated cancer markers in serum #10mm Pulmonary Nodule 10mm pulmonary nodule right lower lobe as seen on CT chest/abdomen/pelvis during hospitalization in mid January for GI symptoms Radiology recommended at that time for 6-month follow-up CT Plan: - Follow up outpatient for repeat imaging #Hypertension #Hyperlipidemia #Fibromyalgia #Migraines All chronic conditions present prior to admission Plan: - Continue home dose of lisinopril 10mg PO qd - Holding statin at this time as fluconazole has a known adverse effect of significantly increasing levels of serum statin - Continue to monitor Health Maintenance: Disposition: Med surg Diet: Cardiac diet GI prophylaxis: None indicated DVT prophylaxis: Lovenox 40mg qd Code: Full code Case disclosed with Attending Dr. Izaguirre and my seniors Dr. Del Rosario and Dr. Santiago. Steven Pennington PGY1 Attending Provider Attestation/Addendum I have examined the patient, reviewed labs and imaging findings, discussed the case with the resident(s), and reviewed entered orders. I agree with the plan of care as outlined in this note, with these additional summaries/recommendations: Patient seen at bedside. No acute overnight events. Patient completed EEG which demonstrated moderate encephalopathy. Continue aspirin for CVA. In-house neurology consulted. Patient not receiving statin therapy secondary to high- dose fluconazole for cocci meningitis. Hyponatremia stable and nephrology following. Continue physical therapy and anticipate discharge in the next 24 to 48 hours. Continue antibiotics for H. pylori infection. Repeat hematology and chemistry panel in AM. Dr. Izaguirre
--- NOTE | 2024-03-08 20:00 | PC.NURSE ---
called in patient pharmacy regarding patient's Clarithromycin medication has only one dose left enough for tonight and will need dose in the morning.
[2024-03-08] MEDS: FLUCONAZOLE 100 MG TABLET 800 MG PO (20:16)
--- NOTE | 2024-03-08 23:45 | PD.NEUROPROG ---
Documentation for date of: 03/08/24 Subjective Subjective Interval history: Patient was seen in [facility] with family at the bedside. She continues to be aphasic and right hemiplegic. She has abnormal involuntary movements involving the face and left upper more than the lower extremities while awake. Able to tolerate oral diet. Exam - Neurology Vital Signs Temp Pulse Resp BP Pulse Ox O2 Del Method 98.1 F 71 12 97/64 97 Room Air 03/08/24 20:00 03/08/24 20:20 03/08/24 20:00 03/08/24 20:00 03/08/24 20:00 03/08/24 20:00 Narrative Exam GENERAL APPEARANCE: Well developed, well-nourished in no acute distress. HEENT: Normocephalic, atraumatic, extraocular movements intact. Pupils: Equal reacting to light NECK: Supple, no JVD or bruits. CARDIOVASULAR: Heart: S1, S2 heard, regular without S3-S4 or murmur no rubs or gallops. LUNGS/CHEST: Clear to auscultation bilaterally. No rails, rhonchi, or wheezing. Normal inspection. ABDOMEN: Soft, nontender, with normal bowel sounds. No pulsatile masses. No rebound, rigidity, or guarding. Normal inspection and palpation. EXTREMITIES: Normal inspection and palpation. No edema, clubbing or cyanosis. SKIN: Warm and dry without rashes. Normal inspection. MUSCULOSKELETAL: No cervical, thoracic, lumbar or midline bony tenderness. Normal inspection. NEURO: Alert, awake and aphasic. Purposeful movements noted in the left upper and lower extremities along with abnormal involuntary movements in the left upper and the face. no signs of meningeal irritation noted. PSYCHIATRIC: Limited Objective Labs 03/08/24 04:30 03/08/24 04:30 Labs: Laboratory Results - last 24 hr 03/04/24 03/08/24 15:40 04:30 WBC 6.9 RBC 3.91 L Hgb 12.4 Hct 36.3 MCV 93 MCH 31.7 MCHC 34.2 RDW Std Deviation 47.8 H Plt Count 286 Neut % (Auto) 60 Lymph % (Auto) 26 [place] % (Auto) 11 Eos % (Auto) 1 Baso % (Auto) 1 Neut # (Auto) 4.2 Lymph # (Auto) 1.8 [place] # (Auto) 0.8 Eos # (Auto) 0.1 Baso # (Auto) 0.0 Immature Gran # (Auto) 0.06 H Absolute Nucleated RBC 0.00 Immature Gran % 1 H Nucleated RBC % 0 Protein C Antigen 114 Protein C Activity 123 Protein S Activity 98 Total Protein S Ag 93 Sodium 127 L Potassium 3.6 Chloride 97 L Carbon Dioxide 24.6 Anion Gap 5 L BUN 6 L Creatinine 0.5 L Estim Creat Clear Calc 95.8 eGFR > 60 BUN/Creatinine Ratio 12 Glucose 103 Calculated Osmolality 252 L Calcium 9.7 Corrected Calcium 9.7 Magnesium 2.0 Total Bilirubin 1.2 AST 18 ALT 24 Alkaline Phosphatase 80 Total Protein 6.8 Albumin 4.0 Globulin 2.8 Albumin/Globulin Ratio 1.4 Assessment & Plan Assessment and plan (1) Abnormal involuntary movements: Status: Acute Assessment and plan: 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 Hyponatremia is commonly associated with it. I will do a repeat LP and send the serum and CSF for autoimmune encephalitis panel: specifically: VGKC and LGI1 ab then start her on steroids: 1 gram of solumedrol daily for 5 days followed by oral taper for 5 days. If no improvement in mental status and focal dystonic movements, will consider trial of IVIG therapy for 5 days. Will do a repeat EEG before and after treatment with steroids. (2) Acute right hemiparesis: Status: Acute Assessment and plan: MRI brain showed multiple periventricular white matter changes suspicious for demyelination. Along with acute infarction involving the left basal ganglia. MRV: Limited study from motion Echocardiogram: Normal study CSF for MS panel: Pending Continue with aspirin 81 mg a day (3) Aphasia: Status: Acute Assessment and plan: Secondary to recent ? ischemic event Continue with speech therapy (4) Recent cerebrovascular accident: Status: Chronic Assessment and plan: With new onset right-sided weakness and aphasia Continue with aspirin (5) Essential (primary) hypertension: Status: Acute Assessment and plan: Continue with the blood pressure control (6) Chronic migraine: Status: Chronic Assessment and plan: By history, stable now. (7) Coccidioidomycosis meningitis: Status: Acute Assessment and plan: CSF findings: Consistent with cocci meningitis : Cell count, protein and glucose with serology continue with the Diflucan for life with close monitoring of liver enzymes.
[2024-03-09] VITALS (10 sets, daily range): BP systolic 112–126; BP diastolic 62–73; PULSE 70–86; RESP 15–19; TEMP 36.3–37.1; O2SAT 95–99; BMI 21.8; BMI 12.0
--- NOTE | 2024-03-09 05:12 | RESP.EEG ---
EEG has been completed and is ready for MD interpretation
[2024-03-09 06:06] LABS: Basophils # (Auto) 0.1 Thou/mm3 (0.0-0.2); Basophils % (Auto) 1 % (0-2.5); Eosinophils # (Auto) 0.1 Thou/mm3 (0.0-0.5); Eosinophils % (Auto) 1 % (0-10); Immature Granulocytes % (Auto) 1 % (0-0); Immature Granulocytes Auto 0.04 Thou/mm3 (0.00-0.00); Lymphocytes # (Auto) 1.7 Thou/mm3 (1.0-4.8); Lymphocytes % (Auto) 24 % (10-50); Mean Corpuscular HGB Conc 35.3 g/dl (31.0-37.0); Mean Corpuscular Hemoglobin 32.4 pg (25.0-35.0); Mean Corpuscular Volume 92 fL (80-100); Monocytes # (Auto) 0.7 Thou/mm3 (0.0-0.8); Monocytes % (Auto) 10 % (0-12); Neutrophils # (Auto) 4.5 Thou/mm3 (1.8-7.7); Neutrophils % (Auto) 63 % (37-80); Nucleated Red Blood Cell % 0 /100 WBC (0); Platelet Count 285 Thou/mm3 (140-440); White Blood Count 7.1 Thou/mm3 (3.6-11.0)
[2024-03-09 06:18] LABS: Myelin Basic Protein, CSF* <2.0 mcg/L (< OR = 4.0); Oligoclonal Bands, CSF* PRESENT (ABSENT)
[2024-03-09 06:36] LABS: Alanine Aminotransferase 26 U/L (10-49); Albumin, Serum 3.9 gm/dL (3.5-5.0); Albumin/Globulin Ratio 1.5 (1.2-2.2); Alkaline Phosphatase 77 U/L (46-116); Anion Gap 5 (7-16); Aspartate Amino Transferase 20 U/L (0-34); BUN/Creatinine Ratio 14 Ratio (12-20); Bilirubin,Total 1.2 mg/dL (0.3-1.2); Blood Urea Nitrogen 7 mg/dL (9-23); Calcium 9.9 mg/dL (8.3-10.6); Carbon Dioxide 25.4 mMol/L (20.0-31.0); Chloride 99 mMol/L (98-107); Creatinine (Component) 0.5 mg/dL (0.6-1.3); Estimated Creatinine Clearance 95.8 mL/min (>60); Globulin 2.6 gm/dL (2.3-3.5); Glucose 107 mg/dL (74-106); Osmolality,Calculated 256 (275-295); Potassium 3.5 mMol/L (3.4-5.1); Sodium 129 mMol/L (136-145); Total Protein 6.5 gm/dL (5.7-8.2); eGFR > 60 See Note
--- NOTE | 2024-03-09 09:32 | ESPR_ITS ---
Subjective Subjective Interval history: biaxin is for h pylori. 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 she has had a cva though, so value of rx may be limited. Exam Vital Signs Temp Pulse Resp BP Pulse Ox O2 Del Method 98.7 F 73 15 118/73 98 Room Air 03/09/24 07:53 03/09/24 07:53 03/09/24 07:53 03/09/24 07:53 03/09/24 07:53 03/09/24 07:53 Narrative Exam limited visit today Objective - Internal Medicine Labs 03/09/24 05:52 03/09/24 05:52 Labs: Laboratory Results - last 24 hr 02/28/24 03/09/24 22:23 05:52 WBC 7.1 RBC 3.70 L Hgb 12.0 Hct 34.0 L MCV 92 MCH 32.4 MCHC 35.3 RDW Std Deviation 47.0 H Plt Count 285 Neut % (Auto) 63 Lymph % (Auto) 24 Beckham % (Auto) 10 Eos % (Auto) 1 Baso % (Auto) 1 Neut # (Auto) 4.5 Lymph # (Auto) 1.7 Beckham # (Auto) 0.7 Eos # (Auto) 0.1 Baso # (Auto) 0.1 Immature Gran # (Auto) 0.04 H Absolute Nucleated RBC 0.00 Immature Gran % 1 H Nucleated RBC % 0 Sodium 129 L Potassium 3.5 Chloride 99 Carbon Dioxide 25.4 Anion Gap 5 L BUN 7 L Creatinine 0.5 L Estim Creat Clear Calc 95.8 eGFR > 60 BUN/Creatinine Ratio 14 Glucose 107 H Calculated Osmolality 256 L Calcium 9.9 Corrected Calcium 10.0 Total Bilirubin 1.2 AST 20 ALT 26 Alkaline Phosphatase 77 Total Protein 6.5 Albumin 3.9 Globulin 2.6 Albumin/Globulin Ratio 1.5 CSF Myelin Basic Protein <2.0 CSF Oligoclonal Bands PRESENT A Assessment & Plan A&P Narrative encephalitis, cva and cocci hx of cocci. original dx january 2024: 1:16 serum. not treated till more recently rt pippa more c/w cva and less so with cocci on rx for h pylori dx 02/02/24 by bx. no pud noted on same egd study with pos cocci at d, favor rx for cocci with flucon. po is same as iv if she can take enterally and she is on enteral flucon, dose adjusted for pos csf on tue for intermediate frame tender care if ready otherwise will check in superficially on Tuesday if still here. Time Spent With Patient Time: Total time spent is greater than 50% in coordination of care (as documented) at patient's floor/unit and/or counseling patient:
[2024-03-09] MEDS: ASPIRIN EC 81 MG TABEC PO (09:56)
[2024-03-09] MEDS: Lisinopril 2.5 MG TABLET 10 MG PO (09:56)
[2024-03-09] MEDS: PANTOPRAZOLE 40 MG TABLET PO ×2 (09:56→22:16)
[2024-03-09] MEDS: AMOXICILLIN 250 MG CAPSULE 1000 MG PO ×2 (10:38→22:16)
[2024-03-09] MEDS: CLARITHROMYCIN 250 MG TABLET 500 MG PO ×2 (10:39→22:16)
--- NOTE | 2024-03-09 12:42 | PC.SS ---
Follow up note: SS spoke to [facility] acute rehab and they declined. Patient not at acute level. SS updated daughter and updated insurance only covers 70% cost of SNF. Out of pocket cost for 2 weeks is 195.00 daily. Daughter to discuss with family members. Only 3 facilities accepted patient in [facility]. SS discussed with daughter.
--- NOTE | 2024-03-09 13:17 | ESPR_ITS ---
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 Given patient's clinical status, daughter at bedside provided history. Father called daughter stating that patient was weak to get out of bed, then son went to see patient at 10 a.m. and patient was not responding to questions. EMS was called and patient was then brought to the ED. In ED, patient was noted to have right-sided hemiparesis, right-sided facial droop, and aphasia so stroke alert was called. Initial CT head showed concern for possible SAH versus artifact. However, patient not candidate for thrombolytics given recent stroke within last month and outside of window. Of note, patient discharged 02/03 after being admitted for gastroenteritis, found to have elevated CA 125, and was told to follow-up with Dr. Wetzel outpatient but had not been able to due to insurance issues. Patient nonverbal at this time but is able to track with his eyes and seems to understand questioning by giving a thumbs up sign. There is definite right- sided facial drooping noted when patient is asked to smile or opening her mouth. Teleneurology was consulted and the recommendation was to repeat MRI with contrast along with MRV. Telemetry neurology also recommends with discontinuing some of the empiric medications but to follow-up with ID which has also been consulted. Infectious disease recommends on discontinuing vancomycin to continue the other medications at this time. Patient is able to communicate minimally with 1-2 words but has persistent right-sided upper and lower extremity weakness, left-sided neglect and persistent facial droop. Repeat brain MRI with contrast was positive for 17 mm acute infarct of the left basal ganglia. Dr. Hernandez has given recommendations to stop antibiotics, acyclovir, and statins (for the time being) for previous differential of diagnosis bacterial meningitis as they can negative interact with fluconazole clearance and at this point, bacterial etiology behind patient's clinical condition unlikely. Teleneurology saw the patient and recommended routine EEG and to start aspirin 81mg PO qd, but to hold off on Plavix at this time. Patient has had lumbar puncture which did not show any blood. Patient able to verbalize very slowly with a couple words when spoken to in Somali. Patient slowly regaining some speech and left-sided extremity function. Patient's mild hyponatremia worsening day by day. Nephrology consulted for worsening hyponatremia, concern for salt wasting syndrome. Patient seen and examined on the floors, resting comfortably in bed. Eating soft foods slowly with assistance. Patient minimally verbal, gave one-word answers. Patient follow commands appropriately. Patient showed severe right sided weakness. Serum osmolality 252. Serum sodium 127, improved from yesterday. BUN 6, creatinine 0.5, eGFR >60. Urine sodium 19.4. Will continue to monitor sodium levels. 03/08: Patient seen and examined on the floors. Patient resting comfortably in bed. Patient able to give occasional one-word answers. Follows commands commands appropriately. Sodium 127, potassium 3.6, bicarb 24.6, BUN 6, creatinine 0.5, eGFR >60. Will continue to monitor. 01/07: Patient seen and examined on floors. Patient resting comfortably in bed. Patient to give occasional mild answers, follows commands appropriately. Sodium 129, potassium 3.5, bicarb 25.4, BUN 7, creatinine 0.5, eGFR >60. Sodium improving appropriately without intervention. Exam Vital Signs Temp Pulse Resp BP Pulse Ox O2 Del Method 97.3 F 70 17 123/66 97 Room Air 03/09/24 11:46 03/09/24 12:00 03/09/24 11:46 03/09/24 11:46 03/09/24 11:46 03/09/24 11:46 Narrative Exam PE: Gen: Well-developed and well-nourished. HEENT: NCAT, PERRLA, EOMI, MMM, anicteric conjunctivae. Right sided facial droop. CVS: normal S1 and S2. RRR. No M/R/G. Resp: CTA B/L. No rhonchi, rales, crackles or wheezing. Abd: soft, non-tender, non-distended. MSK: Good ROM in LUE & LLE. No edema or rash. Minimal movement in right upper and lower extremities due to neurological deficit. Neuro: CN II-XII grossly intact. Strength 4/5 in LUE & LLE. Alert and oriented x3. Strength 1/5 in right upper and lower extremity. Aphasic, can give one- word answers. Follows commands. Objective Labs 03/09/24 05:52 03/09/24 05:52 Labs: Laboratory Results - last 24 hr 02/28/24 03/01/24 03/09/24 22:23 05:04 05:52 WBC 7.1 RBC 3.70 L Hgb 12.0 Hct 34.0 L MCV 92 MCH 32.4 MCHC 35.3 RDW Std Deviation 47.0 H Plt Count 285 Neut % (Auto) 63 Lymph % (Auto) 24 Haakon % (Auto) 10 Eos % (Auto) 1 Baso % (Auto) 1 Neut # (Auto) 4.5 Lymph # (Auto) 1.7 Haakon # (Auto) 0.7 Eos # (Auto) 0.1 Baso # (Auto) 0.1 Immature Gran # (Auto) 0.04 H Absolute Nucleated RBC 0.00 Immature Gran % 1 H Nucleated RBC % 0 Sodium 129 L Potassium 3.5 Chloride 99 Carbon Dioxide 25.4 Anion Gap 5 L BUN 7 L Creatinine 0.5 L Estim Creat Clear Calc 95.8 eGFR > 60 BUN/Creatinine Ratio 14 Glucose 107 H Calculated Osmolality 256 L Calcium 9.9 Corrected Calcium 10.0 Total Bilirubin 1.2 AST 20 ALT 26 Alkaline Phosphatase 77 Total Protein 6.5 Albumin 3.9 Globulin 2.6 Albumin/Globulin Ratio 1.5 CSF Myelin Basic Protein <2.0 CSF Oligoclonal Bands PRESENT A TB Test (QFT) See Sep Rpt Quality Measures Quality Measures none Assessment & Plan Assessment Current Active Medications: Generic Name Dose Route Start Last Admin Trade Name Freq PRN Reason Stop Dose Admin Amoxicillin 1,000 mg 03/02/24 21:00 03/09/24 10:38 Amoxicillin 250 Mg Capsule PO 03/16/24 21:59 1,000 mg BID ROGER Administration Aspirin 81 mg 03/01/24 13:30 03/09/24 09:56 Aspirin Ec 81 Mg Tabec PO 03/31/24 13:29 81 mg QDAY ROGER Administration Clarithromycin 500 mg 03/02/24 21:00 03/09/24 10:39 Clarithromycin 250 Mg Tablet PO 03/16/24 20:59 500 mg BID ROGER Administration Fluconazole 800 mg 03/02/24 21:00 03/08/24 20:16 Fluconazole 100 Mg Tablet PO 03/09/24 20:59 800 mg HS ROGER Administration Lisinopril 10 mg 03/02/24 11:15 03/09/24 09:56 Lisinopril 2.5 Mg Tablet PO 04/01/24 11:14 10 mg QDAY ROGER Administration Ondansetron HCl 4 mg 02/28/24 14:28 Ondansetron Inj 2 Mg/Ml Inj 2 Ml IV 03/29/24 14:27 Q4HR PRN NAUSEA OR VOMITING Pantoprazole Sodium 40 mg 03/02/24 21:00 03/09/24 09:56 Pantoprazole 40 Mg Tablet PO 03/16/24 20:59 40 mg BID ROGER Administration Sennosides 1 tab 02/29/24 16:17 Senna Tablet PO 03/30/24 16:16 QDAY PRN CONSTIPATION Protocol Plan 58-year-old female with a past medical history of hypertension, hyperlipidemia, fibromyalgia, migraines, and 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 #Euvolemic Hyponatremia Patient slowly developing hyponatremia since admission, lowering approximately 1-2 mEq Na per day. On morning of 03/06, Na 128, and on recheck at 2PM, 126. Nephrology consulted to eval for hyponatremia, possible salt wasting syndrome. Patient tolerating p.o. intake well. Following day sodium improved to 127, urine sodium 19.4. Osmolality 252. Creatinine 0.5, BUN 16, eGFR > 60. Sodium continues to improve: 129. 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 pylori infection #GI malignancy, possible #10mm Pulmonary Nodule #Hypertension #Hyperlipidemia #Fibromyalgia #Migraines Management as per primary team. DVT prophylaxis: None, concern for possible intracranial hemorrhage GI prophylaxis: Protonix Diet: Cardiac Lines: Peripheral IV Code status: Full code Thank you for allow me to participate in the care of this patient. Plan of care discussed with attending Dr. Paz. Devyn Henning MD PGY-1 Attending Provider Attestation/Addendum Patient seen and examined with resident physician Dr. Andrews. Note reviewed, agree with findings and recommendations.
--- NOTE | 2024-03-09 13:48 | ESPR_ITS ---
<Statement entered by Prince Del Rosario MD - 03/09/24 15:25> Senior Resident Attestation: I supervised/discussed management plan with resident physician Dr. Damon Lomeli, and was involved in the care of this patient. I personally saw and examined the patient and discussed the assessment and plan with the entire medicine team, including my attending. I agree with the assessment and plan as documented. Patient's care was discussed with attending physician, Dr. 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 Given patient's clinical status, daughter at bedside provided history. Father called daughter stating that patient was weak to get out of bed, then son went to see patient at 10 a.m. and patient was not responding to questions. EMS was called and patient was then brought to the ED. In ED, patient was noted to have right-sided hemiparesis, right-sided facial droop, and aphasia so stroke alert was called. Initial CT head showed concern for possible SAH versus artifact. However, patient not candidate for thrombolytics given recent stroke within last month and outside of window. Of note, patient discharged 02/03 after being admitted for gastroenteritis, found to have elevated CA 125, and was told to follow-up with Dr. Wetzel outpatient but had not been able to due to insurance issues. 02/28: No acute overnight events to report. Patient seen and examined in hospital bed with and daughter at bedside. Patient was difficult to arouse; however, eventually she woke up. Patient is nonverbal at this time but is able to track with his eyes and seems to understand questioning by giving a thumbs up sign. There is definite right-sided facial drooping noted when patient is asked to smile or opening her mouth. Teleneurology was consulted and the recommendation was to repeat MRI with contrast along with MRV. Telemetry neurology also recommends with discontinuing some of the empiric medications but to follow-up with ID which has also been consulted. Infectious disease recommends on discontinuing vancomycin to continue the other medications at this time. 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 03/01: No acute overnight events to report. Patient seen and examined this a.m. with mild neurologic improvement; patient is able to communicate minimally with 1-2 words but has persistent right-sided upper and lower extremity weakness, left-sided neglect and persistent facial droop. Repeat brain MRI with contrast was positive for 17 mm acute infarct of the left basal ganglia. Patient's family bedside question regarding her use of aspirin and Plavix after she got her first CVA on January 2024; they state that she took her medications as prescribed. Patient had a stroke even with antiplatelets on; teleneurology has been consulted and are following the patient closely. 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 Once patient makes some progress, she will need to be treated for H. pylori and she will need follow-up with Dr. Wetzel regarding pulmonary nodule 10 mm which was found on CT. 03/02: No acute overnight events. Dr. Hernandez has given recommendations to stop antibiotics, acyclovir, and statins (for the time being) for previous differential of diagnosis bacterial meningitis as they can negative interact with fluconazole clearance and at this point, bacterial etiology behind patient's clinical condition unlikely. Will plan to restart statin after fluconazole course ends next week. With regards to patient's untreated previously diagnosed H. pylori from 02/01/24, started triple therapy, namely protonix 40mg BID, clarithromycin 500mg BID, and amoxicillin 1g BID x14 days as per guidelines for H. pylori triple therapy treatment. Teleneurology saw the patient today and recommended routine EEG and to start aspirin 81mg PO qd, but to hold off on Plavix at this time, as Dr. Romero can not rule out fungal abscess secondary to coccidiomycosis as an etiology behind patient's condition. Lisinopril 10mg PO qd started for blood pressure control, thiamine 500mg IV BID started x2 days and will lower to 250mg IV BID x5 days afterwards. Ordered TSH, NH3, B6/B9/B12, A1c as further workup for patient's symptoms. 03/03: No acute overnight events. Patient working with speech and occupational therapy this morning, making small improvements each day. Still experiencing global aphasia and complete motorsensory loss of right half of her body, but alert, nods/shakes her head or gives thumbs up/down, and follows along in conversations. Continuining IV thiamine with last dosage tomorrow. No further recommendations from neurology. 03/04: No acute overnight events to report. Patient seen and examined in hospital bed with difficulty verbalizing; which is a new finding from previous days. As such, CT of head/brain without contrast has been ordered which showed suspicions for a subarachnoid hemorrhage still present in the right horizontal sylvian cistern and recommendations to get diagnostic lumbar puncture. Patient has had lumbar puncture which did not show any blood; thus, clinically suspicion remains low for subarachnoid hemorrhage. Will order a hypercoagulable order set as the patient developed a stroke even while being on aspirin and Plavix. Teleneurology following; appreciate recommendations regarding starting Plavix or not. Will continue fluconazole treatment for possible cocci meningitis/abscess; pending ID recommendations and cocci CSF studies. Patient will continue to be treated for H. pylori. 03/05: No acute overnight events to report. Patient seen and examined in hospital bed continuing to make incremental progress; however, still has difficulty ambulating right-sided upper and lower extremities, left-sided extremities slightly better. Patient able to verbalize very slowly with a couple words when spoken to in Hebrew. Teleneurology is following the patient; they have recommended repeat LP which will be completed tomorrow (03/06) secondary to CT results which show still persistent subarachnoid hemorrhage. Our suspicions for an actual subarachnoid hemorrhage remain low as the patient had an lumbar puncture with did not show any signs of bleeding. Cocci CSF samples have been sent to [facility] and they are pending results per laboratory parts sales representative. Will continue to monitor for any acute changes. Update: IR team would not like to proceed with the LP as an LP was already completed post-CT SAH finding. There was no sign of bleeding from CSF studies at that time; thus, per IR team acquiring another LP would be redundant and risky at this time. 03/06: No acute overnight events. Patient slowly regaining some speech and left- sided extremity function. Initially planned for repeat LP, but IR suggests against this, stating that it is redundant as patient has already had an LP during this admission. Pending [facility] cocci studies. Per our labaratory, [facility] lab has received the CSF samples and are in the process of analyzing. EEG taken, results pending. Patient's mild hyponatremia worsening day by day, ordered urine osmolality and osmolytes to evaluate for possible salt-wasting. 03/07: No acute overnight events. CSF samples positive for coccidioides IgG and complement fixation. Culture Manager Dr. Paz seen for patient's hyponatremia, recommendations are to continue monitoring as patient's sodium stable this morning. Teleneurologist Dr. 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 Recommendations are to continue aspirin monotherapy, hold plavix at this time, and to repeat MRI in one week post-discharge. Anticipate discharge in next 24-48h. 03/08: No acute overnight events. EEG was performed which demonstrated moderate encephalopathy of nonspecific etiology. Teleneurology recommending to hold off on statin as patient will be on fluconazole for life, and patient's LDL values are under control as is. [facility] rehab states that they would like patient to stay inpatient today in order to facilitate further progress with PT/OT/FINANCIAL SECRETARY. Hyponatremia stable today. 03/09: No acute overnight events. Dr. Santiago suspecting autoimmune encephalitis, states that hyponatremia is a common finding with this diagnosis. She plans to repeat lumbar puncture and send CSF for autoimmune encephalitis studies. She plans to start her on Solumedrol x5 days afterwards and to perform repeat EEG both before and after starting her steroids. Family has been updated, are amenable to this plan, and have no further questions at this time. Exam Vital Signs Temp Pulse Resp BP Pulse Ox O2 Del Method 97.3 F 70 17 123/66 97 Room Air 03/09/24 11:46 03/09/24 12:00 03/09/24 11:46 03/09/24 11:46 03/09/24 11:46 03/09/24 11:46 Narrative Exam Gen: Alert, appears stated age, in no acute distress, able to respond to questions with thumbs up or down, attempts to verbally answer questions but speech very slurred and slow-starting HEENT: NCAT, PERRLA, EOMI, MMM, anicteric conjunctivae, right-sided facial droop present CVS: normal S1 and S2. RRR. No M/R/G. Resp: CTA B/L. No rhonchi, rales, crackles or wheezing. Abd: soft, non-tender, non-distended. BS+ in all 4 quadrants. MSK: Limited range of motion of extremities, no motion in right extremities. No edema or rash. Neuro: Speech severely slurred, eyes tracking individuals in room as they move, GCS 12 ([id number]), right-sided strength 0/5, left-sided strength improved from 2/5 to 3/5, right-sided facial droop present Objective Labs 03/10/24 04:49 03/10/24 04:49 Labs: Laboratory Results - last 24 hr 02/28/24 03/01/24 03/09/24 22:23 05:04 05:52 WBC 7.1 RBC 3.70 L Hgb 12.0 Hct 34.0 L MCV 92 MCH 32.4 MCHC 35.3 RDW Std Deviation 47.0 H Plt Count 285 Neut % (Auto) 63 Lymph % (Auto) 24 [place] % (Auto) 10 Eos % (Auto) 1 Baso % (Auto) 1 Neut # (Auto) 4.5 Lymph # (Auto) 1.7 [place] # (Auto) 0.7 Eos # (Auto) 0.1 Baso # (Auto) 0.1 Immature Gran # (Auto) 0.04 H Absolute Nucleated RBC 0.00 Immature Gran % 1 H Nucleated RBC % 0 Sodium 129 L Potassium 3.5 Chloride 99 Carbon Dioxide 25.4 Anion Gap 5 L BUN 7 L Creatinine 0.5 L Estim Creat Clear Calc 95.8 eGFR > 60 BUN/Creatinine Ratio 14 Glucose 107 H Calculated Osmolality 256 L Calcium 9.9 Corrected Calcium 10.0 Total Bilirubin 1.2 AST 20 ALT 26 Alkaline Phosphatase 77 Total Protein 6.5 Albumin 3.9 Globulin 2.6 Albumin/Globulin Ratio 1.5 CSF Myelin Basic Protein <2.0 CSF Oligoclonal Bands PRESENT A TB Test (QFT) See Sep Rpt Quality Measures Quality Measures none Assessment & Plan Assessment Current Active Medications: Generic Name Dose Route Start Last Admin Trade Name Freq PRN Reason Stop Dose Admin Amoxicillin 1,000 mg 03/02/24 21:00 03/09/24 10:38 Amoxicillin 250 Mg Capsule PO 03/16/24 21:59 1,000 mg BID ROGER Administration Aspirin 81 mg 03/01/24 13:30 03/09/24 09:56 Aspirin Ec 81 Mg Tabec PO 03/31/24 13:29 81 mg QDAY ROGER Administration Clarithromycin 500 mg 03/02/24 21:00 03/09/24 10:39 Clarithromycin 250 Mg Tablet PO 03/16/24 20:59 500 mg BID ROGER Administration Fluconazole 800 mg 03/02/24 21:00 03/08/24 20:16 Fluconazole 100 Mg Tablet PO 03/09/24 20:59 800 mg HS ROGER Administration Lisinopril 10 mg 03/02/24 11:15 03/09/24 09:56 Lisinopril 2.5 Mg Tablet PO 04/01/24 11:14 10 mg QDAY ROGER Administration Ondansetron HCl 4 mg 02/28/24 14:28 Ondansetron Inj 2 Mg/Ml Inj 2 Ml IV 03/29/24 14:27 Q4HR PRN NAUSEA OR VOMITING Pantoprazole Sodium 40 mg 03/02/24 21:00 03/09/24 09:56 Pantoprazole 40 Mg Tablet PO 03/16/24 20:59 40 mg BID ROGER Administration Sennosides 1 tab 02/29/24 16:17 Senna Tablet PO 03/30/24 16:16 QDAY PRN CONSTIPATION Protocol Plan 58-year-old female with a past medical history of hypertension, hyperlipidemia, fibromyalgia, migraines, and 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 Given patient's clinical status, daughter at bedside provided history. Father called daughter stating that patient was weak to get out of bed, then son went to see patient at 10 a.m. and patient was not responding to questions. EMS was called and patient was then brought to the ED. In ED, patient was noted to have right-sided hemiparesis, right-sided facial droop, and aphasia so stroke alert was called. Initial CT head showed concern for possible SAH versus artifact. However, patient not candidate for thrombolytics given recent stroke within last month and outside of window. Of note, patient discharged 02/03 after being admitted for gastroenteritis, found to have elevated CA 125, and was told to follow-up with Dr. Wetzel outpatient but had not been able to due to insurance issues. 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 Repeat MRI with contrast demonstrated 17mm acute infarct of left basal ganglia Patient has history of Cocci IgM and IgG CSF is clear, colorless with 72 WBC and 23 RBC, 5 mononuclear WBC and 95 polynuclear WBC, glucose low at 27 and total protein elevated at 179. CSF influenza, meningitis, strep negative pending mild protein only with no bands and cocci Venogram MRI degraded study Speech therapy recommends extensive speech therapy for months PT recommends acute rehab placement Lipid panel, TSH, NH3, B6/B9/B12, and A1c were ordered for further evaluation, all were within normal limits Repeat CT Head/Brain findings remained suspicious for SAH; however LP was negative for blood (low RBC count) and was clear Plan: - Neurologist Dr. Santiago consulted, plans to repeat lumbar puncture to evaluate possibility of autoimmune encephalitis - ID consulted, Dr. Hernandez following - Continue aspirin 81mg PO qd - Continue Fluconazole 800mg PO HS for confirmed coccidioides - EEG taken, positive only for moderate encephalopathy of nonspecific etiology - Neurochecks q4h - DVT prophylaxis - Head of bed 30 degrees - Euglycemia and avoid hyperthermia - Holding off on Plavix at this time per teleneurology's recommendations, continue aspirin monotherapy - Teleneurology recommending to continue holding statin as patient's LDL is low and cholesterol an unlikely mechanism for current presentation - Protein C and S studies unremarkable, pending factor V studies #Euvolemic Hyponatremia Patient slowly developing hyponatremia since admission, lowering approximately 1-2 mEq Na per day. On morning of 03/06, Na 128, and on recheck at 2PM, 126. Patient is likely euvolemic. Initially suspected hyponatremia to be due to poor oral intake, but patient has been tolerating her cardiac diet well and working with speech therapy daily. - Nephrology Dr. Paz consulted, appreciate recommendations - Recommendations are to continue monitoring sodium level daily - Will recheck in AM #H. 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 Pompa was consulted time, completed EGD and biopsy Pathology confirmed H. pylori infection Patient's family states that she was never treated for H. pylori after discharge and never followed up outpatient with PCP or Dr. Peña Wetzel was also consulted due to Elevated CA 125 and CA 19?9 pending Plan: - Continue triple therapy for tx of H. pylori infection: protonix 40mg PO BID, clarithromycin 500mg PO BID, and amoxicillin 1g PO BID x 14 days (Course: 03/02- 03/16) - Follow-up with oncologist Dr. Wetzel outpatient for further evaluation of possible GI malignancy as seen by elevated cancer markers in serum #10mm Pulmonary Nodule 10mm pulmonary nodule right lower lobe as seen on CT chest/abdomen/pelvis during hospitalization in mid January for GI symptoms Radiology recommended at that time for 6-month follow-up CT Plan: - Follow up outpatient for repeat imaging #Hypertension #Hyperlipidemia #Fibromyalgia #Migraines All chronic conditions present prior to admission Plan: - Continue home dose of lisinopril 10mg PO qd - Holding statin at this time as fluconazole has a known adverse effect of significantly increasing levels of serum statin - Continue to monitor Health Maintenance: Disposition: Med surg Diet: Cardiac diet GI prophylaxis: None indicated DVT prophylaxis: Lovenox 40mg qd Code: Full code Case disclosed with Attending Dr. Izaguirre and my senior Dr. Del Rosario. Steven Pennington PGY1 Attending Provider Attestation/Addendum I have examined the patient, reviewed labs and imaging findings, discussed the case with the resident(s), and reviewed entered orders. I agree with the plan of care as outlined in this note. Dr. Izaguirre
--- NOTE | 2024-03-09 16:05 | PC.SS ---
Follow up note: Patient d/c held. Patient will now have LP . Neurology ordered.
--- NOTE | 2024-03-09 21:00 | PC.NURSE ---
Dr. Field saw pt for lumbar puncture procedure at bedside at 1930. Juan Alberto MERA assisted Dr. Field for procedure. Procedure ended at 2029. Patient adviced to lay flat on back for 3 hours. Relayed information to family. Verbalize understanding.
[2024-03-09 21:33] LABS: CSF Mononuclear 77.3 %; CSF White Blood Cell 185 /cmm
[2024-03-09 21:46] LABS: Misc Send Out* See Sep Rpt
[2024-03-09 21:50] LABS: CSF Cell Count Tube # Tube # 4; CSF Color Colorless (Colorless)
[2024-03-09 21:53] LABS: CSF, Appearance Clear (Clear)
[2024-03-09 21:54] LABS: CSF Polynuclear WBC 22.7 %
[2024-03-09 21:59] LABS: Glucose,CSF 35 mg/dL (40-70); Protein Total,CSF 125 mg/dL (8-32)
--- NOTE | 2024-03-09 23:55 | ESPR_ITS ---
Documentation for date of: 03/09/24 Subjective Subjective Interval history: Patient was seen in [facility] with family at the bedside. She continues to be aphasic and right hemiplegic. She has abnormal involuntary movements involving the face and left upper more than the lower extremities while awake. Able to tolerate oral diet. Exam - Neurology Vital Signs Temp Pulse Resp BP Pulse Ox O2 Del Method 98.3 F 86 19 126/71 99 Room Air 03/09/24 20:00 03/09/24 20:00 03/09/24 20:00 03/09/24 20:00 03/09/24 20:00 03/09/24 20:00 Narrative Exam GENERAL APPEARANCE: Well developed, well-nourished in no acute distress. HEENT: Normocephalic, atraumatic, extraocular movements intact. Pupils: Equal reacting to light NECK: Supple, no JVD or bruits. CARDIOVASULAR: Heart: S1, S2 heard, regular without S3-S4 or murmur no rubs or gallops. LUNGS/CHEST: Clear to auscultation bilaterally. No rails, rhonchi, or wheezing. Normal inspection. ABDOMEN: Soft, nontender, with normal bowel sounds. No pulsatile masses. No rebound, rigidity, or guarding. Normal inspection and palpation. EXTREMITIES: Normal inspection and palpation. No edema, clubbing or cyanosis. SKIN: Warm and dry without rashes. Normal inspection. MUSCULOSKELETAL: No cervical, thoracic, lumbar or midline bony tenderness. Normal inspection. NEURO: Alert, awake and aphasic. Dense right hemiplegia noted. Purposeful movements noted in the left upper and lower extremities along with abnormal involuntary movements in the left upper and the face. no signs of meningeal irritation noted. PSYCHIATRIC: Limited Objective Labs 03/09/24 05:52 03/09/24 05:52 Labs: Laboratory Results - last 24 hr 02/28/24 03/01/24 03/09/24 22:23 05:04 05:52 WBC 7.1 RBC 3.70 L Hgb 12.0 Hct 34.0 L MCV 92 MCH 32.4 MCHC 35.3 RDW Std Deviation 47.0 H Plt Count 285 Neut % (Auto) 63 Lymph % (Auto) 24 [place] % (Auto) 10 Eos % (Auto) 1 Baso % (Auto) 1 Neut # (Auto) 4.5 Lymph # (Auto) 1.7 [place] # (Auto) 0.7 Eos # (Auto) 0.1 Baso # (Auto) 0.1 Immature Gran # (Auto) 0.04 H Absolute Nucleated RBC 0.00 Immature Gran % 1 H Nucleated RBC % 0 Sodium 129 L Potassium 3.5 Chloride 99 Carbon Dioxide 25.4 Anion Gap 5 L BUN 7 L Creatinine 0.5 L Estim Creat Clear Calc 95.8 eGFR > 60 BUN/Creatinine Ratio 14 Glucose 107 H Calculated Osmolality 256 L Calcium 9.9 Corrected Calcium 10.0 Total Bilirubin 1.2 AST 20 ALT 26 Alkaline Phosphatase 77 Total Protein 6.5 Albumin 3.9 Globulin 2.6 Albumin/Globulin Ratio 1.5 CSF Appearance CSF Color CSF WBC CSF RBC CSF Cell Count Tube # CSF Mononuclear WBCs CSF Polynuclear WBCs CSF Glucose CSF Total Protein CSF Myelin Basic Protein <2.0 CSF Oligoclonal Bands PRESENT A TB Test (QFT) See Dec Rpt 03/09/24 20:42 WBC RBC Hgb Hct MCV MCH MCHC RDW Std Deviation Plt Count Neut % (Auto) Lymph % (Auto) [place] % (Auto) Eos % (Auto) Baso % (Auto) Neut # (Auto) Lymph # (Auto) [place] # (Auto) Eos # (Auto) Baso # (Auto) Immature Gran # (Auto) Absolute Nucleated RBC Immature Gran % Nucleated RBC % Sodium Potassium Chloride Carbon Dioxide Anion Gap BUN Creatinine Estim Creat Clear Calc eGFR BUN/Creatinine Ratio Glucose Calculated Osmolality Calcium Corrected Calcium Total Bilirubin AST ALT Alkaline Phosphatase Total Protein Albumin Globulin Albumin/Globulin Ratio CSF Appearance Clear CSF Color Colorless CSF WBC 185 CSF RBC 1000.000 CSF Cell Count Tube # Tube # 4 CSF Mononuclear WBCs 77.3 CSF Polynuclear WBCs 22.7 CSF Glucose 35 L D CSF Total Protein 125 H CSF Myelin Basic Protein CSF Oligoclonal Bands TB Test (QFT) Assessment & Plan Assessment and plan (1) Abnormal involuntary movements: Status: Acute Assessment and plan: 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 Hyponatremia is commonly associated with it. I will do a repeat LP and send the serum and CSF for autoimmune encephalitis panel: specifically: VGKC and LGI1 ab then start her on steroids: 1 gram of solumedrol daily for 5 days followed by oral taper for 5 days. If no improvement in mental status and focal dystonic movements, will consider trial of IVIG therapy for 5 days. Will do a repeat EEG before and after treatment with steroids. (2) Acute right hemiparesis: Status: Acute Assessment and plan: MRI brain showed multiple periventricular white matter changes suspicious for demyelination. Along with acute infarction involving the left basal ganglia. MRV: Limited study from motion Echocardiogram: Normal study CSF for MS panel: Pending Continue with aspirin 81 mg a day (3) Aphasia: Status: Acute Assessment and plan: Secondary to recent ? ischemic event Continue with speech therapy (4) Recent cerebrovascular accident: Status: Chronic Assessment and plan: With new onset right-sided weakness and aphasia Continue with aspirin (5) Essential (primary) hypertension: Status: Acute Assessment and plan: Continue with the blood pressure control (6) Chronic migraine: Status: Chronic Assessment and plan: By history, stable now. (7) Coccidioidomycosis meningitis: Status: Acute Assessment and plan: CSF findings: Consistent with cocci meningitis : Cell count, protein and glucose with serology continue with the Diflucan for life with close monitoring of liver enzymes.
--- NOTE | 2024-03-09 23:55 | PD.EVENT ---
Documentation for date of: 03/09/24 Date of procedure: 03/09/24 Pre-op diagnosis: autoimmune encephalitis Post-op diagnosis: Same Consent signed by: verbal consent by daughter Position: lateral decubitus Prep: betadine Anesthesia: 1 % Lidocaine Sedation: none Needle size: 22ga Needle length: 3.5 Interspace: L4-5 Number of attempts: 3 Opening pressure: not done Fluids mLs collected: 15 Fluid description: clear Complications: No Patient tolerance: tolerated the procedure well Procedure performed by: Varun Santiago Condition: Stable Disposition: no change
[2024-03-10] VITALS (8 sets, daily range): BP systolic 110–123; BP diastolic 60–83; PULSE 70–97; RESP 14–229; TEMP 36.1–36.5; O2SAT 96–99; BMI 12.0; BMI 21.7
[2024-03-10 05:46] LABS: Basophils % (Auto) 1 % (0-2.5); Eosinophils # (Auto) 0.1 Thou/mm3 (0.0-0.5); Eosinophils % (Auto) 1 % (0-10); Hematocrit 33.9 % (36.0-46.0); Hemoglobin 11.9 g/dL (12.0-16.0); Immature Granulocytes % (Auto) 1 % (0-0); Immature Granulocytes Auto 0.04 Thou/mm3 (0.00-0.00); Lymphocytes # (Auto) 1.6 Thou/mm3 (1.0-4.8); Lymphocytes % (Auto) 20 % (10-50); Mean Corpuscular HGB Conc 35.1 g/dl (31.0-37.0); Mean Corpuscular Hemoglobin 32.2 pg (25.0-35.0); Mean Corpuscular Volume 92 fL (80-100); Monocytes # (Auto) 0.7 Thou/mm3 (0.0-0.8); Monocytes % (Auto) 9 % (0-12); Neutrophils # (Auto) 5.6 Thou/mm3 (1.8-7.7); Neutrophils % (Auto) 70 % (37-80); Nucleated Red Blood Cell % 0 /100 WBC (0); Platelet Count 215 Thou/mm3 (140-440); RDW Standard Deviation 48.1 fL (36.4-46.3); Red Blood Count 3.69 Miln/mm3 (4.00-5.20)
[2024-03-10] MEDS: ASPIRIN EC 81 MG TABEC PO (09:26)
[2024-03-10] MEDS: Lisinopril 2.5 MG TABLET 10 MG PO (09:26)
[2024-03-10] MEDS: CLARITHROMYCIN 250 MG TABLET 500 MG PO ×2 (09:26→20:13)
[2024-03-10] MEDS: PANTOPRAZOLE 40 MG TABLET PO ×2 (09:26→20:13)
[2024-03-10] MEDS: AMOXICILLIN 250 MG CAPSULE 1000 MG PO ×2 (09:27→20:14)
[2024-03-10] MEDS: MethylPREDNISolone. 1,000 MG in SODIUM CHLORIDE 0.9% 250 ML 250 ML 266 MG IV (09:27)
[2024-03-10 11:39] LABS: Alanine Aminotransferase 22 U/L (10-49); Albumin/Globulin Ratio 1.5 (1.2-2.2); Alkaline Phosphatase 78 U/L (46-116); Anion Gap 10 (7-16); Aspartate Amino Transferase 25 U/L (0-34); BUN/Creatinine Ratio 15 Ratio (12-20); Blood Urea Nitrogen 9 mg/dL (9-23); Calcium 9.8 mg/dL (8.3-10.6); Calcium (Corrected) 9.8 mg/dL (8.5-10.1); Carbon Dioxide 23.3 mMol/L (20.0-31.0); Chloride 97 mMol/L (98-107); Creatinine (Component) 0.6 mg/dL (0.6-1.3); Estimated Creatinine Clearance 79.8 mL/min (>60); Globulin 2.7 gm/dL (2.3-3.5); Glucose 115 mg/dL (74-106); Osmolality,Calculated 260 (275-295); Potassium 4.6 mMol/L (3.4-5.1); Sodium 130 mMol/L (136-145); Total Protein 6.7 gm/dL (5.7-8.2); eGFR > 60 See Note
--- NOTE | 2024-03-10 12:42 | ESPR_ITS ---
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 Given patient's clinical status, daughter at bedside provided history. Father called daughter stating that patient was weak to get out of bed, then son went to see patient at 10 a.m. and patient was not responding to questions. EMS was called and patient was then brought to the ED. In ED, patient was noted to have right-sided hemiparesis, right-sided facial droop, and aphasia so stroke alert was called. Initial CT head showed concern for possible SAH versus artifact. However, patient not candidate for thrombolytics given recent stroke within last month and outside of window. Of note, patient discharged 02/03 after being admitted for gastroenteritis, found to have elevated CA 125, and was told to follow-up with Dr. Wetzel outpatient but had not been able to due to insurance issues. Patient nonverbal at this time but is able to track with his eyes and seems to understand questioning by giving a thumbs up sign. There is definite right- sided facial drooping noted when patient is asked to smile or opening her mouth. Teleneurology was consulted and the recommendation was to repeat MRI with contrast along with MRV. Telemetry neurology also recommends with discontinuing some of the empiric medications but to follow-up with ID which has also been consulted. Infectious disease recommends on discontinuing vancomycin to continue the other medications at this time. Patient is able to communicate minimally with 1-2 words but has persistent right-sided upper and lower extremity weakness, left-sided neglect and persistent facial droop. Repeat brain MRI with contrast was positive for 17 mm acute infarct of the left basal ganglia. Dr. Hernandez has given recommendations to stop antibiotics, acyclovir, and statins (for the time being) for previous differential of diagnosis bacterial meningitis as they can negative interact with fluconazole clearance and at this point, bacterial etiology behind patient's clinical condition unlikely. Teleneurology saw the patient and recommended routine EEG and to start aspirin 81mg PO qd, but to hold off on Plavix at this time. Patient has had lumbar puncture which did not show any blood. Patient able to verbalize very slowly with a couple words when spoken to in [place]. Patient slowly regaining some speech and left-sided extremity function. Patient's mild hyponatremia worsening day by day. Nephrology consulted for worsening hyponatremia, concern for salt wasting syndrome. Patient seen and examined on the floors, resting comfortably in bed. Eating soft foods slowly with assistance. Patient minimally verbal, gave one-word answers. Patient follow commands appropriately. Patient showed severe right sided weakness. Serum osmolality 252. Serum sodium 127, improved from yesterday. BUN 6, creatinine 0.5, eGFR >60. Urine sodium 19.4. Will continue to monitor sodium levels. 03/08: Patient seen and examined on the floors. Patient resting comfortably in bed. Patient able to give occasional one-word answers. Follows commands commands appropriately. Sodium 127, potassium 3.6, bicarb 24.6, BUN 6, creatinine 0.5, eGFR >60. Will continue to monitor. 03/09: Patient seen and examined on floors. Patient resting comfortably in bed. Patient to give occasional mild answers, follows commands appropriately. Sodium 129, potassium 3.5, bicarb 25.4, BUN 7, creatinine 0.5, eGFR >60. Sodium improving appropriately without intervention. 03/10: Patient seen and examined on floors. Patient resting comfortably in bed. Patient follows commands appropriately, maintains dense hemiplegia of right side. Sodium 130, potassium 4.6, bicarb 23.3, BUN 9, creatinine 0.6, eGFR >60. Exam Vital Signs Temp Pulse Resp BP Pulse Ox O2 Del Method 97.5 F 74 14 112/81 98 Room Air 03/10/24 08:00 03/10/24 09:26 03/10/24 08:00 03/10/24 09:26 03/10/24 08:00 03/10/24 08:00 Narrative Exam PE: Gen: Well-developed and well-nourished. HEENT: NCAT, PERRLA, EOMI, MMM, anicteric conjunctivae. Right sided facial droop. CVS: normal S1 and S2. RRR. No M/R/G. Resp: CTA B/L. No rhonchi, rales, crackles or wheezing. Abd: soft, non-tender, non-distended. MSK: Good ROM in LUE & LLE. No edema or rash. Minimal movement in right upper and lower extremities due to neurological deficit. Neuro: CN II-XII grossly intact. Strength 4/5 in LUE & LLE. Alert and oriented x3. Strength 1/5 in right upper and lower extremity. Aphasic, can give one- word answers. Follows commands. Objective Labs 03/10/24 04:49 03/10/24 04:49 Labs: Laboratory Results - last 24 hr 03/09/24 03/10/24 20:42 04:49 WBC 8.0 RBC 3.69 L Hgb 11.9 L Hct 33.9 L MCV 92 MCH 32.2 MCHC 35.1 RDW Std Deviation 48.1 H Plt Count 215 D Neut % (Auto) 70 Lymph % (Auto) 20 [place] % (Auto) 9 Eos % (Auto) 1 Baso % (Auto) 1 Neut # (Auto) 5.6 Lymph # (Auto) 1.6 [place] # (Auto) 0.7 Eos # (Auto) 0.1 Baso # (Auto) 0.0 Immature Gran # (Auto) 0.04 H Absolute Nucleated RBC 0.00 Immature Gran % 1 H Nucleated RBC % 0 Sodium 130 L Potassium 4.6 D Chloride 97 L Carbon Dioxide 23.3 Anion Gap 10 BUN 9 Creatinine 0.6 Estim Creat Clear Calc 79.8 eGFR > 60 BUN/Creatinine Ratio 15 Glucose 115 H Calculated Osmolality 260 L Calcium 9.8 Corrected Calcium 9.8 Total Bilirubin 1.0 AST 25 ALT 22 Alkaline Phosphatase 78 Total Protein 6.7 Albumin 4.0 Globulin 2.7 Albumin/Globulin Ratio 1.5 CSF Appearance Clear CSF Color Colorless CSF WBC 185 CSF RBC 1000.000 CSF Cell Count Tube # Tube # 4 CSF Mononuclear WBCs 77.3 CSF Polynuclear WBCs 22.7 CSF Glucose 35 L D CSF Total Protein 125 H Quality Measures Quality Measures VTE prophylaxis Assessment & Plan Assessment Current Active Medications: Generic Name Dose Route Start Last Admin Trade Name Freq PRN Reason Stop Dose Admin Amoxicillin 1,000 mg 03/02/24 21:00 03/10/24 09:27 Amoxicillin 250 Mg Capsule PO 03/16/24 21:59 1,000 mg BID ROGER Administration Aspirin 81 mg 03/01/24 13:30 03/10/24 09:26 Aspirin Ec 81 Mg Tabec PO 03/31/24 13:29 81 mg QDAY ROGER Administration Clarithromycin 500 mg 03/02/24 21:00 03/10/24 09:26 Clarithromycin 250 Mg Tablet PO 03/16/24 20:59 500 mg BID ROGER Administration Fluconazole 800 mg 03/10/24 10:30 Fluconazole 100 Mg Tablet PO 04/14/24 10:29 QDAY ROGER Methylprednisolone Sodium 266 mls @ 266 mls/hr 03/10/24 09:00 03/10/24 09:27 Succinate 1,000 mg/ Sodium IV 03/13/24 08:59 266 mls/hr Chloride DAILY ROGER Administration Lisinopril 10 mg 03/02/24 11:15 03/10/24 09:26 Lisinopril 2.5 Mg Tablet PO 04/01/24 11:14 10 mg QDAY ROGER Administration Ondansetron HCl 4 mg 02/28/24 14:28 Ondansetron Inj 2 Mg/Ml Inj 2 Ml IV 03/29/24 14:27 Q4HR PRN NAUSEA OR VOMITING Pantoprazole Sodium 40 mg 03/02/24 21:00 03/10/24 09:26 Pantoprazole 40 Mg Tablet PO 03/16/24 20:59 40 mg BID ROGER Administration Sennosides 1 tab 02/29/24 16:17 Senna Tablet PO 03/30/24 16:16 QDAY PRN CONSTIPATION Protocol Plan 58-year-old female with a past medical history of hypertension, hyperlipidemia, fibromyalgia, migraines, and 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 #Euvolemic Hyponatremia Patient slowly developing hyponatremia since admission, lowering approximately 1-2 mEq Na per day. On morning of 03/06, Na 128, and on recheck at 2PM, 126. Nephrology consulted to eval for hyponatremia, possible salt wasting syndrome. Patient tolerating p.o. intake well. Following day sodium improved to 127, urine sodium 19.4. Osmolality 252. Creatinine 0.5, BUN 16, eGFR > 60. Sodium continues to improve: 129. 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 pylori infection #GI malignancy, possible #10mm Pulmonary Nodule #Hypertension #Hyperlipidemia #Fibromyalgia #Migraines Management as per primary team. DVT prophylaxis: None, concern for possible intracranial hemorrhage GI prophylaxis: Protonix Diet: Cardiac Lines: Peripheral IV Code status: Full code Thank you for allow me to participate in the care of this patient. Plan of care discussed with attending Dr. Paz. Devyn Henning MD PGY-1 Attending Provider Attestation/Addendum Patient seen and examined with resident physician Dr. Andrews. Note reviewed, agree with findings and recommendations. Sodium markedly improved to 130. Renal strauss stable for discharge.
[2024-03-10] MEDS: FLUCONAZOLE 100 MG TABLET 800 MG PO (13:00)
--- NOTE | 2024-03-10 13:26 | ESPR_ITS ---
<Statement entered by Lois Santiago MD - 03/10/24 15:53> I discussed with and supervised the qa intern physician who took care of this patient. I personally saw and examined the patient and discussed the assessment and plan with the entire medicine team, including my attending , I agree with most of the assessment and plan as documented below Lois Santiago M.D. 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 Given patient's clinical status, daughter at bedside provided history. Father called daughter stating that patient was weak to get out of bed, then son went to see patient at 10 a.m. and patient was not responding to questions. EMS was called and patient was then brought to the ED. In ED, patient was noted to have right-sided hemiparesis, right-sided facial droop, and aphasia so stroke alert was called. Initial CT head showed concern for possible SAH versus artifact. However, patient not candidate for thrombolytics given recent stroke within last month and outside of window. Of note, patient discharged 02/03 after being admitted for gastroenteritis, found to have elevated CA 125, and was told to follow-up with Dr. Wetzel outpatient but had not been able to due to insurance issues. 02/28: No acute overnight events to report. Patient seen and examined in hospital bed with and daughter at bedside. Patient was difficult to arouse; however, eventually she woke up. Patient is nonverbal at this time but is able to track with his eyes and seems to understand questioning by giving a thumbs up sign. There is definite right-sided facial drooping noted when patient is asked to smile or opening her mouth. Teleneurology was consulted and the recommendation was to repeat MRI with contrast along with MRV. Telemetry neurology also recommends with discontinuing some of the empiric medications but to follow-up with ID which has also been consulted. Infectious disease recommends on discontinuing vancomycin to continue the other medications at this time. 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 03/01: No acute overnight events to report. Patient seen and examined this a.m. with mild neurologic improvement; patient is able to communicate minimally with 1-2 words but has persistent right-sided upper and lower extremity weakness, left-sided neglect and persistent facial droop. Repeat brain MRI with contrast was positive for 17 mm acute infarct of the left basal ganglia. Patient's family bedside question regarding her use of aspirin and Plavix after she got her first CVA on January 2024; they state that she took her medications as prescribed. Patient had a stroke even with antiplatelets on; teleneurology has been consulted and are following the patient closely. 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 Once patient makes some progress, she will need to be treated for H. pylori and she will need follow-up with Dr. Wetzel regarding pulmonary nodule 10 mm which was found on CT. 03/02: No acute overnight events. Dr. Hernandez has given recommendations to stop antibiotics, acyclovir, and statins (for the time being) for previous differential of diagnosis bacterial meningitis as they can negative interact with fluconazole clearance and at this point, bacterial etiology behind patient's clinical condition unlikely. Will plan to restart statin after fluconazole course ends next week. With regards to patient's untreated previously diagnosed H. pylori from 02/01/24, started triple therapy, namely protonix 40mg BID, clarithromycin 500mg BID, and amoxicillin 1g BID x14 days as per guidelines for H. pylori triple therapy treatment. Teleneurology saw the patient today and recommended routine EEG and to start aspirin 81mg PO qd, but to hold off on Plavix at this time, as Dr. Romero can not rule out fungal abscess secondary to coccidiomycosis as an etiology behind patient's condition. Lisinopril 10mg PO qd started for blood pressure control, thiamine 500mg IV BID started x2 days and will lower to 250mg IV BID x5 days afterwards. Ordered TSH, NH3, B6/B9/B12, A1c as further workup for patient's symptoms. 03/03: No acute overnight events. Patient working with speech and occupational therapy this morning, making small improvements each day. Still experiencing global aphasia and complete motorsensory loss of right half of her body, but alert, nods/shakes her head or gives thumbs up/down, and follows along in conversations. Continuining IV thiamine with last dosage tomorrow. No further recommendations from neurology. 03/04: No acute overnight events to report. Patient seen and examined in hospital bed with difficulty verbalizing; which is a new finding from previous days. As such, CT of head/brain without contrast has been ordered which showed suspicions for a subarachnoid hemorrhage still present in the right horizontal sylvian cistern and recommendations to get diagnostic lumbar puncture. Patient has had lumbar puncture which did not show any blood; thus, clinically suspicion remains low for subarachnoid hemorrhage. Will order a hypercoagulable order set as the patient developed a stroke even while being on aspirin and Plavix. Teleneurology following; appreciate recommendations regarding starting Plavix or not. Will continue fluconazole treatment for possible cocci meningitis/abscess; pending ID recommendations and cocci CSF studies. Patient will continue to be treated for H. pylori. 03/05: No acute overnight events to report. Patient seen and examined in hospital bed continuing to make incremental progress; however, still has difficulty ambulating right-sided upper and lower extremities, left-sided extremities slightly better. Patient able to verbalize very slowly with a couple words when spoken to in [place]. Teleneurology is following the patient; they have recommended repeat LP which will be completed tomorrow (03/06) secondary to CT results which show still persistent subarachnoid hemorrhage. Our suspicions for an actual subarachnoid hemorrhage remain low as the patient had an lumbar puncture with did not show any signs of bleeding. Cocci CSF samples have been sent to [facility] and they are pending results per laboratory agency service representative. Will continue to monitor for any acute changes. Update: IR team would not like to proceed with the LP as an LP was already completed post-CT SAH finding. There was no sign of bleeding from CSF studies at that time; thus, per IR team acquiring another LP would be redundant and risky at this time. 03/06: No acute overnight events. Patient slowly regaining some speech and left- sided extremity function. Initially planned for repeat LP, but IR suggests against this, stating that it is redundant as patient has already had an LP during this admission. Pending [facility] cocci studies. Per our labaratory, [facility] lab has received the CSF samples and are in the process of analyzing. EEG taken, results pending. Patient's mild hyponatremia worsening day by day, ordered urine osmolality and osmolytes to evaluate for possible salt-wasting. 03/07: No acute overnight events. CSF samples positive for coccidioides IgG and complement fixation. Learning Disabled Teacher Dr. Paz seen for patient's hyponatremia, recommendations are to continue monitoring as patient's sodium stable this morning. Teleneurologist Dr. 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 Recommendations are to continue aspirin monotherapy, hold plavix at this time, and to repeat MRI in one week post-discharge. Anticipate discharge in next 24-48h. 03/08: No acute overnight events. EEG was performed which demonstrated moderate encephalopathy of nonspecific etiology. Teleneurology recommending to hold off on statin as patient will be on fluconazole for life, and patient's LDL values are under control as is. [facility] rehab states that they would like patient to stay inpatient today in order to facilitate further progress with PT/OT/COMPUTER SYSTEMS HARDWARE ANALYST. Hyponatremia stable today. 03/09: No acute overnight events. Dr. Santiago suspecting autoimmune encephalitis, states that hyponatremia is a common finding with this diagnosis. She plans to repeat lumbar puncture and send CSF for autoimmune encephalitis studies. She plans to start her on Solumedrol x5 days afterwards and to perform repeat EEG both before and after starting her steroids. Family has been updated, are amenable to this plan, and have no further questions at this time. 03/10: No acute overnight events. Lumbar puncture performed last night without complication, CSF sent for workup of autoimmune encephalitis. Started solumedrol 1g/day x 5 days, with EEG planned before and after steroid course. After five days solumedrol, will transition to oral steroid taper for a further five days. Conversation held with family today regarding patient's clinical status and likelihood of recovery going forward. Explained that patient has at least two, possibly three, significant diagnoses affecting her central nervous system that take a significant amount of time and interventions to treat. Family understands and have no further questions at this time. Exam Vital Signs Temp Pulse Resp BP Pulse Ox O2 Del Method 97.5 F 74 14 112/81 98 Room Air 03/10/24 08:00 03/10/24 09:26 03/10/24 08:00 03/10/24 09:26 03/10/24 08:00 03/10/24 08:00 Narrative Exam Gen: Alert, appears stated age, in no acute distress, able to respond to questions with thumbs up or down, attempts to verbally answer questions but speech very slurred and slow-starting HEENT: NCAT, PERRLA, EOMI, MMM, anicteric conjunctivae, right-sided facial droop present CVS: normal S1 and S2. RRR. No M/R/G. Resp: CTA B/L. No rhonchi, rales, crackles or wheezing. Abd: soft, non-tender, non-distended. BS+ in all 4 quadrants. MSK: Limited range of motion of extremities, no motion in right extremities. No edema or rash. Neuro: Speech severely slurred, eyes tracking individuals in room as they move, GCS 12 ([id number]), right-sided strength 0/5, left-sided strength improved from 2/5 to 3/5, right-sided facial droop present Objective Labs 03/10/24 04:49 03/10/24 04:49 Labs: Laboratory Results - last 24 hr 03/09/24 03/10/24 20:42 04:49 WBC 8.0 RBC 3.69 L Hgb 11.9 L Hct 33.9 L MCV 92 MCH 32.2 MCHC 35.1 RDW Std Deviation 48.1 H Plt Count 215 D Neut % (Auto) 70 Lymph % (Auto) 20 Stephenson % (Auto) 9 Eos % (Auto) 1 Baso % (Auto) 1 Neut # (Auto) 5.6 Lymph # (Auto) 1.6 Stephenson # (Auto) 0.7 Eos # (Auto) 0.1 Baso # (Auto) 0.0 Immature Gran # (Auto) 0.04 H Absolute Nucleated RBC 0.00 Immature Gran % 1 H Nucleated RBC % 0 Sodium 130 L Potassium 4.6 D Chloride 97 L Carbon Dioxide 23.3 Anion Gap 10 BUN 9 Creatinine 0.6 Estim Creat Clear Calc 79.8 eGFR > 60 BUN/Creatinine Ratio 15 Glucose 115 H Calculated Osmolality 260 L Calcium 9.8 Corrected Calcium 9.8 Total Bilirubin 1.0 AST 25 ALT 22 Alkaline Phosphatase 78 Total Protein 6.7 Albumin 4.0 Globulin 2.7 Albumin/Globulin Ratio 1.5 CSF Appearance Clear CSF Color Colorless CSF WBC 185 CSF RBC 1000.000 CSF Cell Count Tube # Tube # 4 CSF Mononuclear WBCs 77.3 CSF Polynuclear WBCs 22.7 CSF Glucose 35 L D CSF Total Protein 125 H Quality Measures Quality Measures VTE prophylaxis Assessment & Plan Assessment Current Active Medications: Generic Name Dose Route Start Last Admin Trade Name Freq PRN Reason Stop Dose Admin Amoxicillin 1,000 mg 03/02/24 21:00 03/10/24 09:27 Amoxicillin 250 Mg Capsule PO 03/16/24 21:59 1,000 mg BID ROGER Administration Aspirin 81 mg 03/01/24 13:30 03/10/24 09:26 Aspirin Ec 81 Mg Tabec PO 03/31/24 13:29 81 mg QDAY ROGER Administration Clarithromycin 500 mg 03/02/24 21:00 03/10/24 09:26 Clarithromycin 250 Mg Tablet PO 03/16/24 20:59 500 mg BID ROGER Administration Fluconazole 800 mg 03/10/24 13:00 03/10/24 13:00 Fluconazole 100 Mg Tablet PO 04/14/24 10:29 800 mg QDAY ROGER Administration Methylprednisolone Sodium 266 mls @ 266 mls/hr 03/10/24 09:00 03/10/24 09:27 Succinate 1,000 mg/ Sodium IV 03/13/24 08:59 266 mls/hr Chloride DAILY ROGER Administration Lisinopril 10 mg 03/02/24 11:15 03/10/24 09:26 Lisinopril 2.5 Mg Tablet PO 04/01/24 11:14 10 mg QDAY ROGER Administration Ondansetron HCl 4 mg 02/28/24 14:28 Ondansetron Inj 2 Mg/Ml Inj 2 Ml IV 03/29/24 14:27 Q4HR PRN NAUSEA OR VOMITING Pantoprazole Sodium 40 mg 03/02/24 21:00 03/10/24 09:26 Pantoprazole 40 Mg Tablet PO 03/16/24 20:59 40 mg BID ROGER Administration Sennosides 1 tab 02/29/24 16:17 Senna Tablet PO 03/30/24 16:16 QDAY PRN CONSTIPATION Protocol Plan 58-year-old female with a past medical history of hypertension, hyperlipidemia, fibromyalgia, migraines, and 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 Given patient's clinical status, daughter at bedside provided history. Father called daughter stating that patient was weak to get out of bed, then son went to see patient at 10 a.m. and patient was not responding to questions. EMS was called and patient was then brought to the ED. In ED, patient was noted to have right-sided hemiparesis, right-sided facial droop, and aphasia so stroke alert was called. Initial CT head showed concern for possible SAH versus artifact. However, patient not candidate for thrombolytics given recent stroke within last month and outside of window. Of note, patient discharged 02/03 after being admitted for gastroenteritis, found to have elevated CA 125, and was told to follow-up with Dr. Wetzel outpatient but had not been able to due to insurance issues. 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 Repeat MRI with contrast demonstrated 17mm acute infarct of left basal ganglia Patient has history of Cocci IgM and IgG CSF is clear, colorless with 72 WBC and 23 RBC, 5 mononuclear WBC and 95 polynuclear WBC, glucose low at 27 and total protein elevated at 179. CSF influenza, meningitis, strep negative pending mild protein only with no bands and cocci Venogram MRI degraded study Speech therapy recommends extensive speech therapy for months PT recommends acute rehab placement Lipid panel, TSH, NH3, B6/B9/B12, and A1c were ordered for further evaluation, all were within normal limits Repeat CT Head/Brain findings remained suspicious for SAH; however LP was negative for blood (low RBC count) and was clear Plan: - Neurologist Dr. Santiago consulted, lumbar puncture performed to evaluate possibility of autoimmune encephalitis - ID consulted, Dr. Hernandez following - Continue aspirin 81mg PO qd - Continue Fluconazole 800mg PO HS for confirmed coccidioides - Repeat EEG taken, pending results - Neurochecks q4h - DVT prophylaxis - Head of bed 30 degrees - Euglycemia and avoid hyperthermia - Holding off on Plavix at this time per teleneurology's recommendations, continue aspirin monotherapy - Teleneurology recommending to continue holding statin as patient's LDL is low and cholesterol an unlikely mechanism for current presentation - Protein C and S studies unremarkable, pending factor V studies #Euvolemic Hyponatremia Patient slowly developing hyponatremia since admission, lowering approximately 1-2 mEq Na per day. On morning of 03/06, Na 128, and on recheck at 2PM, 126. Patient is likely euvolemic. Initially suspected hyponatremia to be due to poor oral intake, but patient has been tolerating her cardiac diet well and working with speech therapy daily. - Nephrology Dr. Paz consulted, appreciate recommendations - Recommendations are to continue monitoring sodium level daily - Will recheck in AM #H. 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 Pompa was consulted time, completed EGD and biopsy Pathology confirmed H. pylori infection Patient's family states that she was never treated for H. pylori after discharge and never followed up outpatient with PCP or Dr. Peña Wetzel was also consulted due to Elevated CA 125 and CA 19?9 pending Plan: - Continue triple therapy for tx of H. pylori infection: protonix 40mg PO BID, clarithromycin 500mg PO BID, and amoxicillin 1g PO BID x 14 days (Course: 03/02- 03/16) - Follow-up with oncologist Dr. Wetzel outpatient for further evaluation of possible GI malignancy as seen by elevated cancer markers in serum #10mm Pulmonary Nodule 10mm pulmonary nodule right lower lobe as seen on CT chest/abdomen/pelvis during hospitalization in mid January for GI symptoms Radiology recommended at that time for 6-month follow-up CT Plan: - Follow up outpatient for repeat imaging #Hypertension #Hyperlipidemia #Fibromyalgia #Migraines All chronic conditions present prior to admission Plan: - Continue home dose of lisinopril 10mg PO qd - Holding statin at this time as fluconazole has a known adverse effect of significantly increasing levels of serum statin - Continue to monitor Health Maintenance: Disposition: Med surg Diet: Cardiac diet GI prophylaxis: None indicated DVT prophylaxis: Lovenox 40mg qd Code: Full code Case disclosed with Attending Dr. Izaguirre and my senior Dr. Santiago PGY2. Steven Pennington PGY1 Attending Provider Attestation/Addendum I have examined the patient, reviewed labs and imaging findings, discussed the case with the resident(s), and reviewed entered orders. 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 Patient receiving 5 days of high-dose steroids 1 g Solu-Medrol daily and then will transition to oral taper Repeat EEG before and after steroids per neuro #Acute CVA 02/29/2024 MRI showed 17 mm acute infract left basal ganglia Neurodeficits of right hemiparesis and aphasia Continue aspirin monotherapy 81 mg p.o. daily Hold statin therapy while receiving high dose fluconazole Hold Plavix for now out of concern for bleeding risk Continue PT, OT, and speech therapy # Euvolemic hyponatremia Relatively stable Nephrology following Euvolemic at this time and will continue to monitor sodium closely # H. pylori infection Continue triple therapy treatment for [address] Izaguirre
--- NOTE | 2024-03-10 22:52 | ESPR_ITS ---
Documentation for date of: 03/10/24 Subjective Subjective Interval history: Patient was seen in [facility] with family at the bedside. She continues to be right hemiplegic but able to say family member's names. She has occasional abnormal involuntary movements involving the face and left upper extremity. Able to tolerate oral diet. Exam - Neurology Vital Signs Temp Pulse Resp BP Pulse Ox O2 Del Method 97.7 F 97 229 H 123/83 99 Room Air 03/10/24 20:00 03/10/24 20:00 03/10/24 20:00 03/10/24 20:00 03/10/24 20:00 03/10/24 20:00 Narrative Exam GENERAL APPEARANCE: Well developed, well-nourished in no acute distress. HEENT: Normocephalic, atraumatic, extraocular movements intact. Pupils: Equal reacting to light NECK: Supple, no JVD or bruits. CARDIOVASULAR: Heart: S1, S2 heard, regular without S3-S4 or murmur no rubs or gallops. LUNGS/CHEST: Clear to auscultation bilaterally. No rails, rhonchi, or wheezing. Normal inspection. ABDOMEN: Soft, nontender, with normal bowel sounds. No pulsatile masses. No rebound, rigidity, or guarding. Normal inspection and palpation. EXTREMITIES: Normal inspection and palpation. No edema, clubbing or cyanosis. SKIN: Warm and dry without rashes. Normal inspection. MUSCULOSKELETAL: No cervical, thoracic, lumbar or midline bony tenderness. Normal inspection. NEURO: Alert, awake and able to say few words and names of family members. Dense right hemiplegia noted. Purposeful movements noted in the left upper and lower extremities along with occasional abnormal involuntary movements in the left upper and the face. no signs of meningeal irritation noted. PSYCHIATRIC: normal mood and affect. Objective Labs 03/10/24 04:49 03/10/24 04:49 Labs: Laboratory Results - last 24 hr 03/10/24 04:49 WBC 8.0 RBC 3.69 L Hgb 11.9 L Hct 33.9 L MCV 92 MCH 32.2 MCHC 35.1 RDW Std Deviation 48.1 H Plt Count 215 D Neut % (Auto) 70 Lymph % (Auto) 20 Stanton % (Auto) 9 Eos % (Auto) 1 Baso % (Auto) 1 Neut # (Auto) 5.6 Lymph # (Auto) 1.6 Stanton # (Auto) 0.7 Eos # (Auto) 0.1 Baso # (Auto) 0.0 Immature Gran # (Auto) 0.04 H Absolute Nucleated RBC 0.00 Immature Gran % 1 H Nucleated RBC % 0 Sodium 130 L Potassium 4.6 D Chloride 97 L Carbon Dioxide 23.3 Anion Gap 10 BUN 9 Creatinine 0.6 Estim Creat Clear Calc 79.8 eGFR > 60 BUN/Creatinine Ratio 15 Glucose 115 H Calculated Osmolality 260 L Calcium 9.8 Corrected Calcium 9.8 Total Bilirubin 1.0 AST 25 ALT 22 Alkaline Phosphatase 78 Total Protein 6.7 Albumin 4.0 Globulin 2.7 Albumin/Globulin Ratio 1.5 Assessment & Plan Assessment and plan (1) Abnormal involuntary movements: Status: Acute Assessment and plan: 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 Hyponatremia is commonly associated with it. csf showed lymphocytic pleocytosis and elevated protein and low glucose still. FU with serum and CSF for autoimmune encephalitis panel: specifically: VGKC and LGI1 ab started her on steroids: 1 gram of solumedrol daily for 5 days followed by oral taper for 5 days. If no improvement in mental status and focal dystonic movements, will consider trial of IVIG therapy for 5 days. Will do a repeat EEG after completing the 5 days course of steroids. (2) Acute right hemiparesis: Status: Acute Assessment and plan: MRI brain showed multiple periventricular white matter changes suspicious for demyelination. Along with acute infarction involving the left basal ganglia. MRV: Limited study from motion Echocardiogram: Normal study CSF for MS panel: only oligoclonal bands positive. Continue with aspirin 81 mg a day Continue with PT/OT (3) Aphasia: Status: Acute Assessment and plan: Secondary to recent ? ischemic event Continue with speech therapy noted some improvement today (4) Recent cerebrovascular accident: Status: Chronic Assessment and plan: With new onset right-sided weakness and aphasia Continue with aspirin (5) Essential (primary) hypertension: Status: Acute Assessment and plan: Continue with the blood pressure control (6) Chronic migraine: Status: Chronic Assessment and plan: By history, stable now. (7) Coccidioidomycosis meningitis: Status: Acute Assessment and plan: CSF findings: Consistent with cocci meningitis : Cell count, protein and glucose with serology continue with the Diflucan for life with close monitoring of liver enzymes.
[2024-03-11] VITALS (8 sets, daily range): BP systolic 108–120; BP diastolic 63–70; PULSE 74–85; RESP 14–22; TEMP 36.2–36.5; O2SAT 94–99
[2024-03-11 05:38] LABS: Basophils % (Auto) 0 % (0-2.5); Eosinophils % (Auto) 0 % (0-10); Hemoglobin 12.7 g/dL (12.0-16.0); Immature Granulocytes % (Auto) 0 % (0-0); Immature Granulocytes Auto 0.02 Thou/mm3 (0.00-0.00); Lymphocytes # (Auto) 0.5 Thou/mm3 (1.0-4.8); Lymphocytes % (Auto) 8 % (10-50); Mean Corpuscular HGB Conc 35.3 g/dl (31.0-37.0); Mean Corpuscular Hemoglobin 32.1 pg (25.0-35.0); Mean Corpuscular Volume 91 fL (80-100); Monocytes # (Auto) 0.1 Thou/mm3 (0.0-0.8); Monocytes % (Auto) 1 % (0-12); Neutrophils # (Auto) 5.9 Thou/mm3 (1.8-7.7); Neutrophils % (Auto) 91 % (37-80); Nucleated Red Blood Cell % 0 /100 WBC (0); Platelet Count 261 Thou/mm3 (140-440); RDW Standard Deviation 46.8 fL (36.4-46.3); Red Blood Count 3.96 Miln/mm3 (4.00-5.20); White Blood Count 6.5 Thou/mm3 (3.6-11.0)
[2024-03-11 06:09] LABS: Alanine Aminotransferase 21 U/L (10-49); Albumin, Serum 4.2 gm/dL (3.5-5.0); Albumin/Globulin Ratio 1.4 (1.2-2.2); Alkaline Phosphatase 86 U/L (46-116); Anion Gap 9 (7-16); Aspartate Amino Transferase 14 U/L (0-34); BUN/Creatinine Ratio 22 Ratio (12-20); Bilirubin,Total 0.7 mg/dL (0.3-1.2); Blood Urea Nitrogen 13 mg/dL (9-23); Calcium 10.7 mg/dL (8.3-10.6); Calcium (Corrected) 10.7 mg/dL (8.5-10.1); Carbon Dioxide 24.6 mMol/L (20.0-31.0); Chloride 99 mMol/L (98-107); Creatinine (Component) 0.6 mg/dL (0.6-1.3); Estimated Creatinine Clearance 79.8 mL/min (>60); Globulin 2.9 gm/dL (2.3-3.5); Glucose 165 mg/dL (74-106); Osmolality,Calculated 270 (275-295); Sodium 133 mMol/L (136-145); Total Protein 7.1 gm/dL (5.7-8.2); eGFR > 60 See Note
[2024-03-11] MEDS: CLARITHROMYCIN 250 MG TABLET 500 MG PO ×2 (08:00→20:54)
[2024-03-11] MEDS: ASPIRIN EC 81 MG TABEC PO (08:00)
[2024-03-11] MEDS: FLUCONAZOLE 100 MG TABLET 800 MG PO (08:00)
[2024-03-11] MEDS: AMOXICILLIN 250 MG CAPSULE 1000 MG PO ×2 (08:00→20:55)
[2024-03-11] MEDS: Lisinopril 2.5 MG TABLET 10 MG PO (08:01)
[2024-03-11] MEDS: PANTOPRAZOLE 40 MG TABLET PO ×2 (08:02→20:55)
[2024-03-11] MEDS: MethylPREDNISolone. 1,000 MG in SODIUM CHLORIDE 0.9% 250 ML 250 ML 266 MG IV (08:02)
--- NOTE | 2024-03-11 11:49 | ESPR_ITS ---
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 Given patient's clinical status, daughter at bedside provided history. Father called daughter stating that patient was weak to get out of bed, then son went to see patient at 10 a.m. and patient was not responding to questions. EMS was called and patient was then brought to the ED. In ED, patient was noted to have right-sided hemiparesis, right-sided facial droop, and aphasia so stroke alert was called. Initial CT head showed concern for possible SAH versus artifact. However, patient not candidate for thrombolytics given recent stroke within last month and outside of window. Of note, patient discharged 02/03 after being admitted for gastroenteritis, found to have elevated CA 125, and was told to follow-up with Dr. Wetzel outpatient but had not been able to due to insurance issues. Patient nonverbal at this time but is able to track with his eyes and seems to understand questioning by giving a thumbs up sign. There is definite right- sided facial drooping noted when patient is asked to smile or opening her mouth. Teleneurology was consulted and the recommendation was to repeat MRI with contrast along with MRV. Telemetry neurology also recommends with discontinuing some of the empiric medications but to follow-up with ID which has also been consulted. Infectious disease recommends on discontinuing vancomycin to continue the other medications at this time. Patient is able to communicate minimally with 1-2 words but has persistent right-sided upper and lower extremity weakness, left-sided neglect and persistent facial droop. Repeat brain MRI with contrast was positive for 17 mm acute infarct of the left basal ganglia. Dr. Hernandez has given recommendations to stop antibiotics, acyclovir, and statins (for the time being) for previous differential of diagnosis bacterial meningitis as they can negative interact with fluconazole clearance and at this point, bacterial etiology behind patient's clinical condition unlikely. Teleneurology saw the patient and recommended routine EEG and to start aspirin 81mg PO qd, but to hold off on Plavix at this time. Patient has had lumbar puncture which did not show any blood. Patient able to verbalize very slowly with a couple words when spoken to in Faroese. Patient slowly regaining some speech and left-sided extremity function. Patient's mild hyponatremia worsening day by day. Nephrology consulted for worsening hyponatremia, concern for salt wasting syndrome. Patient seen and examined on the floors, resting comfortably in bed. Eating soft foods slowly with assistance. Patient minimally verbal, gave one-word answers. Patient follow commands appropriately. Patient showed severe right sided weakness. Serum osmolality 252. Serum sodium 127, improved from yesterday. BUN 6, creatinine 0.5, eGFR >60. Urine sodium 19.4. Will continue to monitor sodium levels. 03/08: Patient seen and examined on the floors. Patient resting comfortably in bed. Patient able to give occasional one-word answers. Follows commands commands appropriately. Sodium 127, potassium 3.6, bicarb 24.6, BUN 6, creatinine 0.5, eGFR >60. Will continue to monitor. 03/09: Patient seen and examined on floors. Patient resting comfortably in bed. Patient to give occasional mild answers, follows commands appropriately. Sodium 129, potassium 3.5, bicarb 25.4, BUN 7, creatinine 0.5, eGFR >60. Sodium improving appropriately without intervention. 03/10: Patient seen and examined on floors. Patient resting comfortably in bed. Patient follows commands appropriately, maintains dense hemiplegia of right side. Sodium 130, potassium 4.6, bicarb 23.3, BUN 9, creatinine 0.6, eGFR >60. 03/11: Patient seen and examined on floors. Patient resting comfortably in bed. Patient follows commands appropriately, had minimal movements of right hand and foot, improved from before. Follows commands appropriately, was able to speak her name clearly. Sodium 133, potassium 4.0, bicarb 24.6, BUN 13, creatinine 0.6, eGFR >60. Exam Vital Signs Temp Pulse Resp BP Pulse Ox O2 Del Method 97.1 F 81 17 113/67 97 Room Air 03/11/24 08:00 03/11/24 08:01 03/11/24 08:00 03/11/24 08:01 03/11/24 08:00 03/11/24 08:00 Narrative Exam PE: Gen: Well-developed and well-nourished. HEENT: NCAT, PERRLA, EOMI, MMM, anicteric conjunctivae. Right sided facial droop. CVS: normal S1 and S2. RRR. No M/R/G. Resp: CTA B/L. No rhonchi, rales, crackles or wheezing. Abd: soft, non-tender, non-distended. MSK: Good ROM in LUE & LLE. No edema or rash. Minimal movement in right upper and lower extremities due to neurological deficit. Neuro: CN II-XII grossly intact. Strength 4/5 in LUE & LLE. Alert and oriented x3. Strength 1/5 in right upper and lower extremity. Aphasic, can give one- word answers. Follows commands. Objective Labs 03/11/24 04:47 03/11/24 04:47 Labs: Laboratory Results - last 24 hr 03/10/24 03/11/24 04:49 04:47 WBC 6.5 RBC 3.96 L Hgb 12.7 Hct 36.0 MCV 91 MCH 32.1 MCHC 35.3 RDW Std Deviation 46.8 H Plt Count 261 D Neut % (Auto) 91 H Lymph % (Auto) 8 L [place] % (Auto) 1 Eos % (Auto) 0 Baso % (Auto) 0 Neut # (Auto) 5.9 Lymph # (Auto) 0.5 L [place] # (Auto) 0.1 Eos # (Auto) 0.0 Baso # (Auto) 0.0 Immature Gran # (Auto) 0.02 H Absolute Nucleated RBC 0.00 Immature Gran % 0 Nucleated RBC % 0 Sodium 130 L 133 L Potassium 4.6 D 4.0 D Chloride 97 L 99 Carbon Dioxide 23.3 24.6 Anion Gap 10 9 BUN 9 13 Creatinine 0.6 0.6 Estim Creat Clear Calc 79.8 79.8 eGFR > 60 > 60 BUN/Creatinine Ratio 15 22 H Glucose 115 H 165 H D Calculated Osmolality 260 L 270 L Calcium 9.8 10.7 H Corrected Calcium 9.8 10.7 H Total Bilirubin 1.0 0.7 AST 25 14 ALT 22 21 Alkaline Phosphatase 78 86 Total Protein 6.7 7.1 Albumin 4.0 4.2 Globulin 2.7 2.9 Albumin/Globulin Ratio 1.5 1.4 Quality Measures Quality Measures VTE prophylaxis Assessment & Plan Assessment Current Active Medications: Generic Name Dose Route Start Last Admin Trade Name Freq PRN Reason Stop Dose Admin Amoxicillin 1,000 mg 11/15/24 21:00 03/11/24 08:00 Amoxicillin 250 Mg Capsule PO 03/16/24 21:59 1,000 mg BID ROGER Administration Aspirin 81 mg 03/01/24 13:30 03/11/24 08:00 Aspirin Ec 81 Mg Tabec PO 03/31/24 13:29 81 mg QDAY ROGER Administration Clarithromycin 500 mg 03/02/24 21:00 03/11/24 08:00 Clarithromycin 250 Mg Tablet PO 03/16/24 20:59 500 mg BID ROGER Administration Fluconazole 800 mg 03/10/24 13:00 03/11/24 08:00 Fluconazole 100 Mg Tablet PO 04/14/24 10:29 800 mg QDAY ROGER Administration Methylprednisolone Sodium 266 mls @ 266 mls/hr 03/10/24 09:00 03/11/24 08:02 Succinate 1,000 mg/ Sodium IV 03/13/24 08:59 266 mls/hr Chloride DAILY ROGER Administration Lisinopril 10 mg 03/02/24 11:15 03/11/24 08:01 Lisinopril 2.5 Mg Tablet PO 04/01/24 11:14 10 mg QDAY ROGER Administration Ondansetron HCl 4 mg 02/28/24 14:28 Ondansetron Inj 2 Mg/Ml Inj 2 Ml IV 03/29/24 14:27 Q4HR PRN NAUSEA OR VOMITING Pantoprazole Sodium 40 mg 03/02/24 21:00 03/11/24 08:02 Pantoprazole 40 Mg Tablet PO 03/16/24 20:59 40 mg BID ROGER Administration Sennosides 1 tab 02/29/24 16:17 Senna Tablet PO 03/30/24 16:16 QDAY PRN CONSTIPATION Protocol Plan 58-year-old female with a past medical history of hypertension, hyperlipidemia, fibromyalgia, migraines, and 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 #Euvolemic Hyponatremia Patient slowly developing hyponatremia since admission, lowering approximately 1-2 mEq Na per day. On morning of 03/06, Na 128, and on recheck at 2PM, 126. Nephrology consulted to eval for hyponatremia, possible salt wasting syndrome. Patient tolerating p.o. intake well. Following day sodium improved to 127, urine sodium 19.4. Osmolality 252. Creatinine 0.5, BUN 16, eGFR > 60. Sodium continues to improve: 133. -Monitor sodium daily -No other specific recommendations at this time -Patient is cleared for discharge from nephrology perspective. 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 pylori infection #GI malignancy, possible #10mm Pulmonary Nodule #Hypertension #Hyperlipidemia #Fibromyalgia #Migraines Management as per primary team. DVT prophylaxis: None, concern for possible intracranial hemorrhage GI prophylaxis: Protonix Diet: Cardiac Lines: Peripheral IV Code status: Full code Thank you for allow me to participate in the care of this patient. Plan of care discussed with attending Dr. Paz. Deyvn Henning MD PGY-1 Attending Provider Attestation/Addendum Patient seen and examined with resident physician Dr. Bender. Note reviewed, agree with findings and recommendations Sodium markedly improved to 133. Renal strauss stable for discharge. Plan of care discussed with at bedside. She might need to go to rehab for her stroke. Right-sided dense hemiplegia. Patient with a potluck of neurological diagnosis(autoimmune encephalitis, questionable multiple sclerosis, stroke, cocci meningitis)
--- NOTE | 2024-03-11 13:14 | ESPR_ITS ---
<Statement entered by Lois Santiago MD - 03/11/24 15:17> Patient seen and examined at bedside. Patient appears to be improving more in her social awareness cues. Patient is currently day 2/5 of IV Steroids. Pending AI CSF panel. Continue with monotherapy aspirin, Fluconazole for her prevention of future strokes and treatment for cocci meningitis, respectively. I discussed with and supervised the brand marketing intern physician who took care of this patient. I personally saw and examined the patient and discussed the assessment and plan with the entire medicine team, including my attending Dr. Izaguirre, I agree with most of the assessment and plan as documented below Lois Santiago M.D. 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 Given patient's clinical status, daughter at bedside provided history. Father called daughter stating that patient was weak to get out of bed, then son went to see patient at 10 a.m. and patient was not responding to questions. EMS was called and patient was then brought to the ED. In ED, patient was noted to have right-sided hemiparesis, right-sided facial droop, and aphasia so stroke alert was called. Initial CT head showed concern for possible SAH versus artifact. However, patient not candidate for thrombolytics given recent stroke within last month and outside of window. Of note, patient discharged 02/03 after being admitted for gastroenteritis, found to have elevated CA 125, and was told to follow-up with Dr. Wetzel outpatient but had not been able to due to insurance issues. 02/28: No acute overnight events to report. Patient seen and examined in hospital bed with and daughter at bedside. Patient was difficult to arouse; however, eventually she woke up. Patient is nonverbal at this time but is able to track with his eyes and seems to understand questioning by giving a thumbs up sign. There is definite right-sided facial drooping noted when patient is asked to smile or opening her mouth. Teleneurology was consulted and the recommendation was to repeat MRI with contrast along with MRV. Telemetry neurology also recommends with discontinuing some of the empiric medications but to follow-up with ID which has also been consulted. Infectious disease recommends on discontinuing vancomycin to continue the other medications at this time. 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 03/01: No acute overnight events to report. Patient seen and examined this a.m. with mild neurologic improvement; patient is able to communicate minimally with 1-2 words but has persistent right-sided upper and lower extremity weakness, left-sided neglect and persistent facial droop. Repeat brain MRI with contrast was positive for 17 mm acute infarct of the left basal ganglia. Patient's family bedside question regarding her use of aspirin and Plavix after she got her first CVA on January 2024; they state that she took her medications as prescribed. Patient had a stroke even with antiplatelets on; teleneurology has been consulted and are following the patient closely. 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 Once patient makes some progress, she will need to be treated for H. pylori and she will need follow-up with Dr. Wetzel regarding pulmonary nodule 10 mm which was found on CT. 03/02: No acute overnight events. Dr. Hernandez has given recommendations to stop antibiotics, acyclovir, and statins (for the time being) for previous differential of diagnosis bacterial meningitis as they can negative interact with fluconazole clearance and at this point, bacterial etiology behind patient's clinical condition unlikely. Will plan to restart statin after fluconazole course ends next week. With regards to patient's untreated previously diagnosed H. pylori from 02/01/24, started triple therapy, namely protonix 40mg BID, clarithromycin 500mg BID, and amoxicillin 1g BID x14 days as per guidelines for H. pylori triple therapy treatment. Teleneurology saw the patient today and recommended routine EEG and to start aspirin 81mg PO qd, but to hold off on Plavix at this time, as Dr. Romero can not rule out fungal abscess secondary to coccidiomycosis as an etiology behind patient's condition. Lisinopril 10mg PO qd started for blood pressure control, thiamine 500mg IV BID started x2 days and will lower to 250mg IV BID x5 days afterwards. Ordered TSH, NH3, B6/B9/B12, A1c as further workup for patient's symptoms. 03/03: No acute overnight events. Patient working with speech and occupational therapy this morning, making small improvements each day. Still experiencing global aphasia and complete motorsensory loss of right half of her body, but alert, nods/shakes her head or gives thumbs up/down, and follows along in conversations. Continuining IV thiamine with last dosage tomorrow. No further recommendations from neurology. 03/04: No acute overnight events to report. Patient seen and examined in hospital bed with difficulty verbalizing; which is a new finding from previous days. As such, CT of head/brain without contrast has been ordered which showed suspicions for a subarachnoid hemorrhage still present in the right horizontal sylvian cistern and recommendations to get diagnostic lumbar puncture. Patient has had lumbar puncture which did not show any blood; thus, clinically suspicion remains low for subarachnoid hemorrhage. Will order a hypercoagulable order set as the patient developed a stroke even while being on aspirin and Plavix. Teleneurology following; appreciate recommendations regarding starting Plavix or not. Will continue fluconazole treatment for possible cocci meningitis/abscess; pending ID recommendations and cocci CSF studies. Patient will continue to be treated for H. pylori. 03/05: No acute overnight events to report. Patient seen and examined in hospital bed continuing to make incremental progress; however, still has difficulty ambulating right-sided upper and lower extremities, left-sided extremities slightly better. Patient able to verbalize very slowly with a couple words when spoken to in [place]ian. Teleneurology is following the patient; they have recommended repeat LP which will be completed tomorrow (03/06) secondary to CT results which show still persistent subarachnoid hemorrhage. Our suspicions for an actual subarachnoid hemorrhage remain low as the patient had an lumbar puncture with did not show any signs of bleeding. Cocci CSF samples have been sent to [facility] and they are pending results per laboratory service center representative. Will continue to monitor for any acute changes. Update: IR team would not like to proceed with the LP as an LP was already completed post-CT SAH finding. There was no sign of bleeding from CSF studies at that time; thus, per IR team acquiring another LP would be redundant and risky at this time. 03/06: No acute overnight events. Patient slowly regaining some speech and left- sided extremity function. Initially planned for repeat LP, but IR suggests against this, stating that it is redundant as patient has already had an LP during this admission. Pending [facility] cocci studies. Per our labaratory, [facility] lab has received the CSF samples and are in the process of analyzing. EEG taken, results pending. Patient's mild hyponatremia worsening day by day, ordered urine osmolality and osmolytes to evaluate for possible salt-wasting. 03/07: No acute overnight events. CSF samples positive for coccidioides IgG and complement fixation. Architectural Inspector Dr. Paz seen for patient's hyponatremia, recommendations are to continue monitoring as patient's sodium stable this morning. Teleneurologist Dr. 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 Recommendations are to continue aspirin monotherapy, hold plavix at this time, and to repeat MRI in one week post-discharge. Anticipate discharge in next 24-48h. 03/08: No acute overnight events. EEG was performed which demonstrated moderate encephalopathy of nonspecific etiology. Teleneurology recommending to hold off on statin as patient will be on fluconazole for life, and patient's LDL values are under control as is. [facility] rehab states that they would like patient to stay inpatient today in order to facilitate further progress with PT/OT/OFFICE SERVICE COORDINATOR. Hyponatremia stable today. 03/09: No acute overnight events. Dr. Santiago suspecting autoimmune encephalitis, states that hyponatremia is a common finding with this diagnosis. She plans to repeat lumbar puncture and send CSF for autoimmune encephalitis studies. She plans to start her on Solumedrol x5 days afterwards and to perform repeat EEG both before and after starting her steroids. Family has been updated, are amenable to this plan, and have no further questions at this time. 03/10: No acute overnight events. Lumbar puncture performed last night without complication, CSF sent for workup of autoimmune encephalitis. Started solumedrol 1g/day x 5 days, with EEG planned before and after steroid course. After five days solumedrol, will transition to oral steroid taper for a further five days. Conversation held with family today regarding patient's clinical status and likelihood of recovery going forward. Explained that patient has at least two, possibly three, significant diagnoses affecting her central nervous system that take a significant amount of time and interventions to treat. Family understands and have no further questions at this time. 03/11: No acute overnight events. Patient on 2nd day of 5-day Solumedrol course, making marked improvements in speech cabailities and motor function of right face and extremities. Patient now able to speak 2-3 words at a time with improved speech comprehensibility. Continue working with PT/OT/OFFICE SERVICE COORDINATOR daily with aspirin monotherapy, pending autoimmune encephalitis study results. Exam Vital Signs Temp Pulse Resp BP Pulse Ox O2 Del Method 97.1 F 77 15 108/67 99 Room Air 03/11/24 12:00 03/11/24 12:00 03/11/24 12:00 03/11/24 12:00 03/11/24 12:00 03/11/24 12:00 Narrative Exam Gen: Alert, appears stated age, in no acute distress, able to respond to questions with thumbs up or down, able to speak two or three words at a time, speech still slurred but markedly improved since initial presentation HEENT: NCAT, PERRLA, EOMI, MMM, anicteric conjunctivae, right-sided facial droop present CVS: normal S1 and S2. RRR. No M/R/G. Resp: CTA B/L. No rhonchi, rales, crackles or wheezing. Abd: soft, non-tender, non-distended. BS+ in all 4 quadrants. MSK: Limited range of motion of extremities, no motion in right extremities. No edema or rash. Neuro: Speech slurred, eyes tracking individuals in room as they move, , right- sided strength 0/5, left-sided strength improved from 2/5 to 4/5, right-sided facial droop present but improved Objective Labs 03/12/24 03:43 03/12/24 03:43 Labs: Laboratory Results - last 24 hr 03/11/24 04:47 WBC 6.5 RBC 3.96 L Hgb 12.7 Hct 36.0 MCV 91 MCH 32.1 MCHC 35.3 RDW Std Deviation 46.8 H Plt Count 261 D Neut % (Auto) 91 H Lymph % (Auto) 8 L [place] % (Auto) 1 Eos % (Auto) 0 Baso % (Auto) 0 Neut # (Auto) 5.9 Lymph # (Auto) 0.5 L [place] # (Auto) 0.1 Eos # (Auto) 0.0 Baso # (Auto) 0.0 Immature Gran # (Auto) 0.02 H Absolute Nucleated RBC 0.00 Immature Gran % 0 Nucleated RBC % 0 Sodium 133 L Potassium 4.0 D Chloride 99 Carbon Dioxide 24.6 Anion Gap 9 BUN 13 Creatinine 0.6 Estim Creat Clear Calc 79.8 eGFR > 60 BUN/Creatinine Ratio 22 H Glucose 165 H D Calculated Osmolality 270 L Calcium 10.7 H Corrected Calcium 10.7 H Total Bilirubin 0.7 AST 14 ALT 21 Alkaline Phosphatase 86 Total Protein 7.1 Albumin 4.2 Globulin 2.9 Albumin/Globulin Ratio 1.4 Quality Measures Quality Measures VTE prophylaxis Assessment & Plan Assessment Current Active Medications: Generic Name Dose Route Start Last Admin Trade Name Freq PRN Reason Stop Dose Admin Amoxicillin 1,000 mg 03/02/24 21:00 03/11/24 08:00 Amoxicillin 250 Mg Capsule PO 03/16/24 21:59 1,000 mg BID ROGER Administration Aspirin 81 mg 03/01/24 13:30 03/11/24 08:00 Aspirin Ec 81 Mg Tabec PO 03/31/24 13:29 81 mg QDAY ROGER Administration Clarithromycin 500 mg 03/02/24 21:00 03/11/24 08:00 Clarithromycin 250 Mg Tablet PO 03/16/24 20:59 500 mg BID ROGER Administration Fluconazole 800 mg 03/10/24 13:00 03/11/24 08:00 Fluconazole 100 Mg Tablet PO 04/14/24 10:29 800 mg QDAY ROGER Administration Methylprednisolone Sodium 266 mls @ 266 mls/hr 03/10/24 09:00 03/11/24 08:02 Succinate 1,000 mg/ Sodium IV 03/13/24 08:59 266 mls/hr Chloride DAILY ROGER Administration Lisinopril 10 mg 03/02/24 11:15 03/11/24 08:01 Lisinopril 2.5 Mg Tablet PO 04/01/24 11:14 10 mg QDAY ROGER Administration Ondansetron HCl 4 mg 02/28/24 14:28 Ondansetron Inj 2 Mg/Ml Inj 2 Ml IV 03/29/24 14:27 Q4HR PRN NAUSEA OR VOMITING Pantoprazole Sodium 40 mg 03/02/24 21:00 03/11/24 08:02 Pantoprazole 40 Mg Tablet PO 03/16/24 20:59 40 mg BID ROGER Administration Sennosides 1 tab 02/29/24 16:17 Senna Tablet PO 03/30/24 16:16 QDAY PRN CONSTIPATION Protocol Plan 58-year-old female with a past medical history of hypertension, hyperlipidemia, fibromyalgia, migraines, and 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 Given patient's clinical status, daughter at bedside provided history. Father called daughter stating that patient was weak to get out of bed, then son went to see patient at 10 a.m. and patient was not responding to questions. EMS was called and patient was then brought to the ED. In ED, patient was noted to have right-sided hemiparesis, right-sided facial droop, and aphasia so stroke alert was called. Initial CT head showed concern for possible SAH versus artifact. However, patient not candidate for thrombolytics given recent stroke within last month and outside of window. Of note, patient discharged 02/03 after being admitted for gastroenteritis, found to have elevated CA 125, and was told to follow-up with Dr. Wetzel outpatient but had not been able to due to insurance issues. 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 Repeat MRI with contrast demonstrated 17mm acute infarct of left basal ganglia Patient has history of Cocci IgM and IgG CSF is clear, colorless with 72 WBC and 23 RBC, 5 mononuclear WBC and 95 polynuclear WBC, glucose low at 27 and total protein elevated at 179. CSF influenza, meningitis, strep negative pending mild protein only with no bands and cocci Venogram MRI degraded study Speech therapy recommends extensive speech therapy for months PT recommends acute rehab placement Lipid panel, TSH, NH3, B6/B9/B12, and A1c were ordered for further evaluation, all were within normal limits Repeat CT Head/Brain findings remained suspicious for SAH; however LP was negative for blood (low RBC count) and was clear Plan: - Neurologist Dr. Santiago consulted, lumbar puncture performed to evaluate possibility of autoimmune encephalitis - ID consulted, Dr. Hernandez following - Continue aspirin 81mg PO qd - Continue Fluconazole 800mg PO HS for confirmed coccidioides - Repeat EEG taken, pending results - Neurochecks q4h - DVT prophylaxis - Head of bed 30 degrees - Euglycemia and avoid hyperthermia - Holding off on Plavix at this time per teleneurology's recommendations, continue aspirin monotherapy - Teleneurology recommending to continue holding statin as patient's LDL is low and cholesterol an unlikely mechanism for current presentation - Protein C and S studies unremarkable, pending factor V studies #Euvolemic Hyponatremia Patient slowly developing hyponatremia since admission, lowering approximately 1-2 mEq Na per day. On morning of 03/06, Na 128, and on recheck at 2PM, 126. Patient is likely euvolemic. Initially suspected hyponatremia to be due to poor oral intake, but patient has been tolerating her cardiac diet well and working with speech therapy daily. - Nephrology Dr. Paz consulted, appreciate recommendations - Recommendations are to continue monitoring sodium level daily - Will recheck in AM #H. 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 Pompa was consulted time, completed EGD and biopsy Pathology confirmed H. pylori infection Patient's family states that she was never treated for H. pylori after discharge and never followed up outpatient with PCP or Dr. Peña Wetzel was also consulted due to Elevated CA 125 and CA 19?9 pending Plan: - Continue triple therapy for tx of H. pylori infection: protonix 40mg PO BID, clarithromycin 500mg PO BID, and amoxicillin 1g PO BID x 14 days (Course: 03/02- 03/16) - Follow-up with oncologist Dr. Wetzel outpatient for further evaluation of possible GI malignancy as seen by elevated cancer markers in serum #10mm Pulmonary Nodule 10mm pulmonary nodule right lower lobe as seen on CT chest/abdomen/pelvis during hospitalization in mid January for GI symptoms Radiology recommended at that time for 6-month follow-up CT Plan: - Follow up outpatient for repeat imaging #Hypertension #Hyperlipidemia #Fibromyalgia #Migraines All chronic conditions present prior to admission Plan: - Continue home dose of lisinopril 10mg PO qd - Holding statin at this time as fluconazole has a known adverse effect of significantly increasing levels of serum statin - Continue to monitor Health Maintenance: Disposition: Med surg Diet: Cardiac diet GI prophylaxis: None indicated DVT prophylaxis: Lovenox 40mg qd Code: Full code Case disclosed with Attending Dr. Izaguirre and my senior Dr. Santiago PGY2. Steven Pennington PGY1 Attending Provider Attestation/Addendum I have examined the patient, reviewed labs and imaging findings, discussed the case with the resident(s), and reviewed entered orders. 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 Patient receiving 5 days of high-dose steroids 1 g Solu-Medrol daily and then will transition to oral taper Repeat EEG before and after steroids per neuro #Acute CVA 02/29/2024 MRI showed 17 mm acute infract left basal ganglia Neurodeficits of right hemiparesis and aphasia Continue aspirin monotherapy 81 mg p.o. daily Hold statin therapy while receiving high dose fluconazole Hold Plavix for now out of concern for bleeding risk Continue PT, OT, and speech therapy # Euvolemic hyponatremia Relatively stable Nephrology following Euvolemic at this time and will continue to monitor sodium closely # H. pylori infection Continue triple therapy treatment for [address] Izaguirre
--- NOTE | 2024-03-11 23:34 | PD.VPROG1 ---
Telemedicine visit statement This visit was conducted with the use of interactive audio and video telecommunications system that permits real time communication between the patient and the provider. Patient's verbal consent for virtual visit was obtained on 03/11/24 at 2334. Documentation for date of: 03/11/24 Subjective Subjective Interval history: Patient is in medtelemetry with family. no complaints noted. Involuntary movements in the face and left UE have been significantly less. She denies any headache. Able to communicate much better, right dense hemiplegia unchanged. Virtual exam Vital Signs Temp Pulse Resp BP Pulse Ox O2 Del Method 97.3 F 80 22 H 119/70 96 Room Air 03/11/24 20:00 03/11/24 21:00 03/11/24 20:00 03/11/24 20:00 03/11/24 20:00 03/11/24 20:00 Objective Labs 03/11/24 04:47 03/11/24 04:47 Labs: Laboratory Results - last 24 hr 03/11/24 04:47 WBC 6.5 RBC 3.96 L Hgb 12.7 Hct 36.0 MCV 91 MCH 32.1 MCHC 35.3 RDW Std Deviation 46.8 H Plt Count 261 D Neut % (Auto) 91 H Lymph % (Auto) 8 L [place] % (Auto) 1 Eos % (Auto) 0 Baso % (Auto) 0 Neut # (Auto) 5.9 Lymph # (Auto) 0.5 L [place] # (Auto) 0.1 Eos # (Auto) 0.0 Baso # (Auto) 0.0 Immature Gran # (Auto) 0.02 H Absolute Nucleated RBC 0.00 Immature Gran % 0 Nucleated RBC % 0 Sodium 133 L Potassium 4.0 D Chloride 99 Carbon Dioxide 24.6 Anion Gap 9 BUN 13 Creatinine 0.6 Estim Creat Clear Calc 79.8 eGFR > 60 BUN/Creatinine Ratio 22 H Glucose 165 H D Calculated Osmolality 270 L Calcium 10.7 H Corrected Calcium 10.7 H Total Bilirubin 0.7 AST 14 ALT 21 Alkaline Phosphatase 86 Total Protein 7.1 Albumin 4.2 Globulin 2.9 Albumin/Globulin Ratio 1.4 Assessment & Plan Assessment (1) Abnormal involuntary movements: 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 Hyponatremia is commonly associated with it. csf showed lymphocytic pleocytosis and elevated protein and low glucose still. FU with serum and CSF for autoimmune encephalitis panel: specifically: VGKC and LGI1 ab started her on steroids: 1 gram of solumedrol daily for 5 days followed by oral taper for 5 days. She completed 2 days of steroids. If no improvement in mental status and focal dystonic movements, will consider trial of IVIG therapy for 5 days. Will do a repeat EEG after completing the 5 days course of steroids. (2) Acute right hemiparesis: MRI brain showed multiple periventricular white matter changes suspicious for demyelination. Along with acute infarction involving the left basal ganglia. MRV: Limited study from motion Echocardiogram: Normal study CSF for MS panel: only oligoclonal bands positive. igG index, IgG synthesis rate and myelin Basic protein: all are wnl Continue with aspirin 81 mg a day Continue with PT/OT (3) Aphasia: Continue to show improvement gradually Secondary to recent ? ischemic event Continue with speech therapy (4) Recent cerebrovascular accident: improving language deficit With new onset right-sided weakness and aphasia Continue with aspirin and PT (5) Essential (primary) hypertension: Continue with the blood pressure control (6) Chronic migraine: By history, stable now. 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
[2024-03-12] VITALS (10 sets, daily range): BP systolic 109–130; BP diastolic 62–70; PULSE 69–92; RESP 14–22; TEMP 36.1–36.6; O2SAT 97–99; BMI 12.0
[2024-03-12 05:35] LABS: Basophils % (Auto) 0 % (0-2.5); Eosinophils % (Auto) 0 % (0-10); Hematocrit 35.9 % (36.0-46.0); Hemoglobin 12.2 g/dL (12.0-16.0); Immature Granulocytes % (Auto) 0 % (0-0); Immature Granulocytes Auto 0.05 Thou/mm3 (0.00-0.00); Lymphocytes # (Auto) 0.4 Thou/mm3 (1.0-4.8); Lymphocytes % (Auto) 2 % (10-50); Mean Corpuscular Hemoglobin 31.6 pg (25.0-35.0); Mean Corpuscular Volume 93 fL (80-100); Monocytes # (Auto) 0.2 Thou/mm3 (0.0-0.8); Monocytes % (Auto) 1 % (0-12); Neutrophils # (Auto) 15.2 Thou/mm3 (1.8-7.7); Neutrophils % (Auto) 96 % (37-80); Nucleated Red Blood Cell % 0 /100 WBC (0); Platelet Count 311 Thou/mm3 (140-440); RDW Standard Deviation 49.6 fL (36.4-46.3); Red Blood Count 3.86 Miln/mm3 (4.00-5.20); White Blood Count 15.8 Thou/mm3 (3.6-11.0)
[2024-03-12 06:20] LABS: Anion Gap 12 (7-16); BUN/Creatinine Ratio 28 Ratio (12-20); Blood Urea Nitrogen 17 mg/dL (9-23); Calcium 10.6 mg/dL (8.3-10.6); Chloride 101 mMol/L (98-107); Creatinine (Component) 0.6 mg/dL (0.6-1.3); Estimated Creatinine Clearance 79.8 mL/min (>60); Glucose 150 mg/dL (74-106); Osmolality,Calculated 278 (275-295); Potassium 3.7 mMol/L (3.4-5.1); Sodium 137 mMol/L (136-145); eGFR > 60 See Note
[2024-03-12 07:31] LABS: Vitamin B6, Plasma* 2.7 ng/mL (2.1-21.7)
[2024-03-12 07:37] LABS: Factor V Leiden Mutation NEGATIVE; Homocysteine* 13.8 umol/L (<10.4)
[2024-03-12] MEDS: FLUCONAZOLE 100 MG TABLET 800 MG PO (08:31)
[2024-03-12] MEDS: AMOXICILLIN 250 MG CAPSULE 1000 MG PO ×2 (08:31→20:51)
[2024-03-12] MEDS: Lisinopril 2.5 MG TABLET 10 MG PO (08:31)
[2024-03-12] MEDS: ASPIRIN EC 81 MG TABEC PO (08:32)
[2024-03-12] MEDS: PANTOPRAZOLE 40 MG TABLET PO ×2 (08:33→20:51)
[2024-03-12] MEDS: CLARITHROMYCIN 250 MG TABLET 500 MG PO ×2 (08:47→20:52)
[2024-03-12] MEDS: MethylPREDNISolone. 1,000 MG in SODIUM CHLORIDE 0.9% 250 ML 250 ML 266 MG IV (08:59)
--- NOTE | 2024-03-12 09:29 | ESPR_ITS ---
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 Given patient's clinical status, daughter at bedside provided history. Father called daughter stating that patient was weak to get out of bed, then son went to see patient at 10 a.m. and patient was not responding to questions. EMS was called and patient was then brought to the ED. In ED, patient was noted to have right-sided hemiparesis, right-sided facial droop, and aphasia so stroke alert was called. Initial CT head showed concern for possible SAH versus artifact. However, patient not candidate for thrombolytics given recent stroke within last month and outside of window. Of note, patient discharged 02/03 after being admitted for gastroenteritis, found to have elevated CA 125, and was told to follow-up with Dr. Wetzel outpatient but had not been able to due to insurance issues. Patient nonverbal at this time but is able to track with his eyes and seems to understand questioning by giving a thumbs up sign. There is definite right- sided facial drooping noted when patient is asked to smile or opening her mouth. Teleneurology was consulted and the recommendation was to repeat MRI with contrast along with MRV. Telemetry neurology also recommends with discontinuing some of the empiric medications but to follow-up with ID which has also been consulted. Infectious disease recommends on discontinuing vancomycin to continue the other medications at this time. Patient is able to communicate minimally with 1-2 words but has persistent right-sided upper and lower extremity weakness, left-sided neglect and persistent facial droop. Repeat brain MRI with contrast was positive for 17 mm acute infarct of the left basal ganglia. Dr. Hernandez has given recommendations to stop antibiotics, acyclovir, and statins (for the time being) for previous differential of diagnosis bacterial meningitis as they can negative interact with fluconazole clearance and at this point, bacterial etiology behind patient's clinical condition unlikely. Teleneurology saw the patient and recommended routine EEG and to start aspirin 81mg PO qd, but to hold off on Plavix at this time. Patient has had lumbar puncture which did not show any blood. Patient able to verbalize very slowly with a couple words when spoken to in [place]. Patient slowly regaining some speech and left-sided extremity function. Patient's mild hyponatremia worsening day by day. Nephrology consulted for worsening hyponatremia, concern for salt wasting syndrome. Patient seen and examined on the floors, resting comfortably in bed. Eating soft foods slowly with assistance. Patient minimally verbal, gave one-word answers. Patient follow commands appropriately. Patient showed severe right sided weakness. Serum osmolality 252. Serum sodium 127, improved from yesterday. BUN 6, creatinine 0.5, eGFR >60. Urine sodium 19.4. Will continue to monitor sodium levels. 03/08: Patient seen and examined on the floors. Patient resting comfortably in bed. Patient able to give occasional one-word answers. Follows commands commands appropriately. Sodium 127, potassium 3.6, bicarb 24.6, BUN 6, creatinine 0.5, eGFR >60. Will continue to monitor. 03/09: Patient seen and examined on floors. Patient resting comfortably in bed. Patient to give occasional mild answers, follows commands appropriately. Sodium 129, potassium 3.5, bicarb 25.4, BUN 7, creatinine 0.5, eGFR >60. Sodium improving appropriately without intervention. 03/10: Patient seen and examined on floors. Patient resting comfortably in bed. Patient follows commands appropriately, maintains dense hemiplegia of right side. Sodium 130, potassium 4.6, bicarb 23.3, BUN 9, creatinine 0.6, eGFR >60. 03/11: Patient seen and examined on floors. Patient resting comfortably in bed. Patient follows commands appropriately, had minimal movements of right hand and foot, improved from before. Follows commands appropriately, was able to speak her name clearly. Sodium 133, potassium 4.0, bicarb 24.6, BUN 13, creatinine 0.6, eGFR >60. 03/12: Patient seen and examined on floors. Patient resting comfortably in bed. Follows commands appropriately, minimal movements of right hand anfd foot. Improved mentation and verbal responsiveness. Sodium 137, BUN 17, creatinine 0.6, egfr >60. Patient cleart from nephrology perspective, will sign off. Exam Vital Signs Temp Pulse Resp BP Pulse Ox O2 Del Method 97.0 F 80 16 122/68 99 Room Air 03/12/24 07:33 03/12/24 08:31 03/12/24 07:33 03/12/24 08:31 03/12/24 07:33 03/12/24 07:33 Narrative Exam PE: Gen: Well-developed and well-nourished. HEENT: NCAT, PERRLA, EOMI, MMM, anicteric conjunctivae. Right sided facial droop. CVS: normal S1 and S2. RRR. No M/R/G. Resp: CTA B/L. No rhonchi, rales, crackles or wheezing. Abd: soft, non-tender, non-distended. MSK: Good ROM in LUE & LLE. No edema or rash. Minimal movement in right upper and lower extremities due to neurological deficit. Neuro: CN II-XII grossly intact. Strength 4/5 in LUE & LLE. Alert and oriented x3. Strength 1/5 in right upper and lower extremity. Increased verbal responsiveness. Follows commands. Objective Labs 03/12/24 03:43 03/12/24 03:43 Labs: Laboratory Results - last 24 hr 03/02/24 03/04/24 03/12/24 12:00 15:40 03:43 WBC 15.8 H D RBC 3.86 L Hgb 12.2 Hct 35.9 L MCV 93 MCH 31.6 MCHC 34.0 RDW Std Deviation 49.6 H Plt Count 311 D Neut % (Auto) 96 H Lymph % (Auto) 2 L [place] % (Auto) 1 Eos % (Auto) 0 Baso % (Auto) 0 Neut # (Auto) 15.2 H Lymph # (Auto) 0.4 L [place] # (Auto) 0.2 Eos # (Auto) 0.0 Baso # (Auto) 0.0 Immature Gran # (Auto) 0.05 H Absolute Nucleated RBC 0.00 Immature Gran % 0 Nucleated RBC % 0 Factor V Leiden Mutat NEGATIVE Factor V Leiden Interp See Below Sodium 137 Potassium 3.7 Chloride 101 Carbon Dioxide 24.0 Anion Gap 12 BUN 17 Creatinine 0.6 Estim Creat Clear Calc 79.8 eGFR > 60 BUN/Creatinine Ratio 28 H Glucose 150 H Calculated Osmolality 278 Calcium 10.6 Vitamin B6 2.7 Homocysteine 13.8 H Quality Measures Quality Measures VTE prophylaxis Assessment & Plan Assessment Current Active Medications: Generic Name Dose Route Start Last Admin Trade Name Freq PRN Reason Stop Dose Admin Amoxicillin 1,000 mg 03/02/24 21:00 03/12/24 08:31 Amoxicillin 250 Mg Capsule PO 03/16/24 21:59 1,000 mg BID ROGER Administration Aspirin 81 mg 03/01/24 13:30 03/12/24 08:32 Aspirin Ec 81 Mg Tabec PO 03/31/24 13:29 81 mg QDAY ROGER Administration Clarithromycin 500 mg 03/02/24 21:00 03/12/24 08:47 Clarithromycin 250 Mg Tablet PO 03/16/24 20:59 500 mg BID ROGER Administration Fluconazole 800 mg 03/10/24 13:00 03/12/24 08:31 Fluconazole 100 Mg Tablet PO 04/14/24 10:29 800 mg QDAY ROGER Administration Methylprednisolone Sodium 266 mls @ 266 mls/hr 03/10/24 09:00 03/12/24 08:59 Succinate 1,000 mg/ Sodium IV 03/13/24 08:59 266 mls/hr Chloride DAILY ROGER Administration Lisinopril 10 mg 03/02/24 11:15 03/12/24 08:31 Lisinopril 2.5 Mg Tablet PO 04/01/24 11:14 10 mg QDAY ROGER Administration Ondansetron HCl 4 mg 02/28/24 14:28 Ondansetron Inj 2 Mg/Ml Inj 2 Ml IV 03/29/24 14:27 Q4HR PRN NAUSEA OR VOMITING Pantoprazole Sodium 40 mg 03/02/24 21:00 03/12/24 08:33 Pantoprazole 40 Mg Tablet PO 03/16/24 20:59 40 mg BID ROGER Administration Sennosides 1 tab 02/29/24 16:17 Senna Tablet PO 03/30/24 16:16 QDAY PRN CONSTIPATION Protocol Plan 58-year-old female with a past medical history of hypertension, hyperlipidemia, fibromyalgia, migraines, and 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 #Euvolemic Hyponatremia Patient slowly developing hyponatremia since admission, lowering approximately 1-2 mEq Na per day. On morning of 03/06, Na 128, and on recheck at 2PM, 126. Nephrology consulted to eval for hyponatremia, possible salt wasting syndrome. Patient tolerating p.o. intake well. Following day sodium improved to 127, urine sodium 19.4. Osmolality 252. Creatinine 0.5, BUN 16, eGFR > 60. Sodium continues to improve: 137. -Monitor sodium daily -No other specific recommendations at this time -Patient is cleared for discharge from nephrology perspective. 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 pylori infection #GI malignancy, possible #10mm Pulmonary Nodule #Hypertension #Hyperlipidemia #Fibromyalgia #Migraines Management as per primary team. DVT prophylaxis: None, concern for possible intracranial hemorrhage GI prophylaxis: Protonix Diet: Cardiac Lines: Peripheral IV Code status: Full code Thank you for allow me to participate in the care of this patient. Plan of care discussed with attending Dr. Paz. Devyn Henning MD PGY-1 Attending Provider Attestation/Addendum Patient seen and examined with resident physician Dr. Andrews. Note reviewed, agree with findings and recommendations. Patient currently seen in medical floor. Resting comfortably. She has a right dense hemiplegia. Pending placement. Renal strauss no further recommendations. Sodium stable at 133. Renal will sign off. Thank you for the consult..
--- NOTE | 2024-03-12 09:40 | ESPR_ITS ---
Subjective Subjective Interval history: afebrile on enteral rx steroids are iv, but in most cases can be oral. will check in briefly again on tuesday if she remains. 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 Exam Vital Signs Temp Pulse Resp BP Pulse Ox O2 Del Method 97.0 F 80 16 122/68 99 Room Air 03/12/24 07:33 03/12/24 08:31 03/12/24 07:33 03/12/24 08:31 03/12/24 07:33 03/12/24 07:33 Narrative Exam limited visit Objective - Internal Medicine Labs 03/12/24 03:43 03/12/24 03:43 Labs: Laboratory Results - last 24 hr 03/02/24 03/04/24 03/12/24 12:00 15:40 03:43 WBC 15.8 H D RBC 3.86 L Hgb 12.2 Hct 35.9 L MCV 93 MCH 31.6 MCHC 34.0 RDW Std Deviation 49.6 H Plt Count 311 D Neut % (Auto) 96 H Lymph % (Auto) 2 L [place] % (Auto) 1 Eos % (Auto) 0 Baso % (Auto) 0 Neut # (Auto) 15.2 H Lymph # (Auto) 0.4 L [place] # (Auto) 0.2 Eos # (Auto) 0.0 Baso # (Auto) 0.0 Immature Gran # (Auto) 0.05 H Absolute Nucleated RBC 0.00 Immature Gran % 0 Nucleated RBC % 0 Factor V Leiden Mutat NEGATIVE Factor V Leiden Interp See Below Sodium 137 Potassium 3.7 Chloride 101 Carbon Dioxide 24.0 Anion Gap 12 BUN 17 Creatinine 0.6 Estim Creat Clear Calc 79.8 eGFR > 60 BUN/Creatinine Ratio 28 H Glucose 150 H Calculated Osmolality 278 Calcium 10.6 Vitamin B6 2.7 Homocysteine 13.8 H Assessment & Plan A&P Narrative encephalitis, cva and cocci hx of cocci. original dx january 2024: 1:16 serum. not treated till more recently rt pippa more c/w cva and less so with cocci on rx for h pylori dx 02/02/24 by bx. no pud noted on same egd study with pos cocci at [facility], favor rx for cocci with flucon. 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 Time Spent With Patient Time: Total time spent is greater than 50% in coordination of care (as documented) at patient's floor/unit and/or counseling patient:
--- NOTE | 2024-03-12 10:49 | PC.SS ---
SS received call from Lynda from [facility] who is requesting updated information including PT notes. SS has sent updated inquiry using [facility] to [facility].
--- NOTE | 2024-03-12 10:51 | PC.SS ---
Follow up note: WBC went up. Pt is on IV steroids.
--- NOTE | 2024-03-12 11:50 | ESPR_ITS ---
<Statement entered by Lois Santiago MD - 03/12/24 22:57> Patient seen and examined at bedside. Patient appears to be having very infrequent left facial dystonic movement and is more verbal and aware. Patient able to answer questions with 2-3 word responses, however, patient continues to have right sided hemiparesis. Patient will need to be in hospital for at least 2 more days for IV steroids. Will reach out to neurology regarding further recs on IVIG, though unlikely d/t significant improvement seen with IV steroids. Patient will need an additional oral steroid taper that can most likely be managed outpatient at rehab or SNF. Pending CSF for AI panel. Patient and patient's family agree with the current course of plan. I discussed with and supervised the internet webmaster physician who took care of this patient. I personally saw and examined the patient and discussed the assessment and plan with the entire medicine team, including my attending , I agree with most of the assessment and plan as documented below Lois Santiago M.D. PGY-2 Documentation for date of: 03/12/24 Subjective Subjective Interval history: 03/12/2024: No acute overnight events to report. Patient seen and examined in hospital bed making incremental improvement in neurological status; able to speak in 2-3 word sentences. Patient's family bedside updated regarding the plan. Per neurology, Dr. Santiago, recommendations patient will need to receive a total of 5 days of 1 g Solu-Medrol followed by a 5-day taper for autoimmune encephalitis. Patient will continue to be treated with fluconazole for cocci meningitis and triple therapy for H. pylori infection. Will continue to assess the patient and hope for incremental improvements; if the patient does not improve neurologist recommends doing IVIG therapy. Exam Vital Signs Temp Pulse Resp BP Pulse Ox O2 Del Method 97.0 F 80 16 122/68 99 Room Air 03/12/24 07:33 03/12/24 08:31 03/12/24 07:33 03/12/24 08:31 03/12/24 07:33 03/12/24 07:33 Narrative Exam Gen: Alert, appears stated age, in no acute distress, able to respond to questions with thumbs up or down, able to speak two or three words at a time, speech still slurred but markedly improved since initial presentation HEENT: NCAT, PERRLA, EOMI, MMM, anicteric conjunctivae, right-sided facial droop present CVS: normal S1 and S2. RRR. No M/R/G. Resp: CTA B/L. No rhonchi, rales, crackles or wheezing. Abd: soft, non-tender, non-distended. BS+ in all 4 quadrants. MSK: Limited range of motion of extremities, no motion in right extremities. No edema or rash. Neuro: Speech slurred, eyes tracking individuals in room as they move, , right- sided strength 0/5, left-sided strength improved from 2/5 to 4/5, right-sided facial droop present but improved Objective Labs 03/12/24 03:43 03/12/24 03:43 Labs: Laboratory Results - last 24 hr 03/02/24 03/04/24 03/12/24 12:00 15:40 03:43 WBC 15.8 H D RBC 3.86 L Hgb 12.2 Hct 35.9 L MCV 93 MCH 31.6 MCHC 34.0 RDW Std Deviation 49.6 H Plt Count 311 D Neut % (Auto) 96 H Lymph % (Auto) 2 L [place] % (Auto) 1 Eos % (Auto) 0 Baso % (Auto) 0 Neut # (Auto) 15.2 H Lymph # (Auto) 0.4 L [place] # (Auto) 0.2 Eos # (Auto) 0.0 Baso # (Auto) 0.0 Immature Gran # (Auto) 0.05 H Absolute Nucleated RBC 0.00 Immature Gran % 0 Nucleated RBC % 0 Factor V Leiden Mutat NEGATIVE Factor V Leiden Interp See Below Sodium 137 Potassium 3.7 Chloride 101 Carbon Dioxide 24.0 Anion Gap 12 BUN 17 Creatinine 0.6 Estim Creat Clear Calc 79.8 eGFR > 60 BUN/Creatinine Ratio 28 H Glucose 150 H Calculated Osmolality 278 Calcium 10.6 Vitamin B6 2.7 Homocysteine 13.8 H Quality Measures Quality Measures VTE prophylaxis Assessment & Plan Assessment Current Active Medications: Generic Name Dose Route Start Last Admin Trade Name Freq PRN Reason Stop Dose Admin Amoxicillin 1,000 mg 03/02/24 21:00 03/12/24 08:31 Amoxicillin 250 Mg Capsule PO 03/16/24 21:59 1,000 mg BID ROGER Administration Aspirin 81 mg 03/01/24 13:30 03/12/24 08:32 Aspirin Ec 81 Mg Tabec PO 03/31/24 13:29 81 mg QDAY ROGER Administration Clarithromycin 500 mg 03/02/24 21:00 03/12/24 08:47 Clarithromycin 250 Mg Tablet PO 03/16/24 20:59 500 mg BID ROGER Administration Fluconazole 800 mg 03/10/24 13:00 03/12/24 08:31 Fluconazole 100 Mg Tablet PO 04/14/24 10:29 800 mg QDAY ROGER Administration Methylprednisolone Sodium 266 mls @ 266 mls/hr 03/10/24 09:00 03/12/24 08:59 Succinate 1,000 mg/ Sodium IV 03/13/24 08:59 266 mls/hr Chloride DAILY ROGER Administration Lisinopril 10 mg 03/02/24 11:15 03/12/24 08:31 Lisinopril 2.5 Mg Tablet PO 04/01/24 11:14 10 mg QDAY ROGER Administration Ondansetron HCl 4 mg 02/28/24 14:28 Ondansetron Inj 2 Mg/Ml Inj 2 Ml IV 03/29/24 14:27 Q4HR PRN NAUSEA OR VOMITING Pantoprazole Sodium 40 mg 03/02/24 21:00 03/12/24 08:33 Pantoprazole 40 Mg Tablet PO 03/16/24 20:59 40 mg BID ROGER Administration Sennosides 1 tab 02/29/24 16:17 Senna Tablet PO 03/30/24 16:16 QDAY PRN CONSTIPATION Protocol Plan 58-year-old female with a past medical history of hypertension, hyperlipidemia, fibromyalgia, migraines, and 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 Given patient's clinical status, daughter at bedside provided history. Father called daughter stating that patient was weak to get out of bed, then son went to see patient at 10 a.m. and patient was not responding to questions. EMS was called and patient was then brought to the ED. In ED, patient was noted to have right-sided hemiparesis, right-sided facial droop, and aphasia so stroke alert was called. Initial CT head showed concern for possible SAH versus artifact. However, patient not candidate for thrombolytics given recent stroke within last month and outside of window. Of note, patient discharged 10/19 after being admitted for gastroenteritis, found to have elevated CA 125, and was told to follow-up with Dr. Wetzel outpatient but had not been able to due to insurance issues. 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 Repeat MRI with contrast demonstrated 17mm acute infarct of left basal ganglia Patient has history of Cocci IgM and IgG CSF is clear, colorless with 72 WBC and 23 RBC, 5 mononuclear WBC and 95 polynuclear WBC, glucose low at 27 and total protein elevated at 179. CSF influenza, meningitis, strep negative pending mild protein only with no bands and cocci Venogram MRI degraded study Speech therapy recommends extensive speech therapy for months PT recommends acute rehab placement Lipid panel, TSH, NH3, B6/B9/B12, and A1c were ordered for further evaluation, all were within normal limits Repeat CT Head/Brain findings remained suspicious for SAH; however LP was negative for blood (low RBC count) and was clear Protein C/S negative EEG shows multifocal slowing and spike/dome appearance in frontal, central and temporal areas Plan: - Day 3 of 5 of 1 g Solu-Medrol for autoimmune encephalitis; will require 5 days of steroid tapering afterwards (will remain in the hospital for at least 2 more days for IV steroids) - Neurologist Dr. Santiago consulted, appreciate recs - Follow-up on VGKC and LGI1 antibodies outpatient with neurology - ID consulted, Dr. Hernandez following - Continue aspirin 81mg PO qd - Continue Fluconazole 800mg PO HS for confirmed coccidioides - Neurochecks q4h - DVT prophylaxis - Head of bed 30 degrees - Euglycemia and avoid hyperthermia - Holding off on Plavix at this time per teleneurology's recommendations, continue aspirin monotherapy - Teleneurology recommending to continue holding statin as patient's LDL is low and cholesterol an unlikely mechanism for current presentation - Pending factor V studies #Euvolemic Hyponatremia-resolved Patient slowly developing hyponatremia since admission, lowering approximately 1-2 mEq Na per day. On morning of 03/06, Na 128, and on recheck at 2PM, 126. Patient is likely euvolemic. Initially suspected hyponatremia to be due to poor oral intake, but patient has been tolerating her cardiac diet well and working with speech therapy daily. - Nephrology Dr. Paz consulted, appreciate recommendations - Recommendations are to continue monitoring sodium level daily - Will recheck in AM #H. 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 Pompa was consulted time, completed EGD and biopsy Pathology confirmed H. pylori infection Patient's family states that she was never treated for H. pylori after discharge and never followed up outpatient with PCP or Dr. ePña Wetzel was also consulted due to Elevated CA 125 and CA 19?9 pending Plan: - Continue triple therapy for tx of H. pylori infection: protonix 40mg PO BID, clarithromycin 500mg PO BID, and amoxicillin 1g PO BID x 14 days (Course: 03/02- 03/16) - Follow-up with oncologist Dr. Wetzel outpatient for further evaluation of possible GI malignancy as seen by elevated cancer markers in serum #10mm Pulmonary Nodule 10mm pulmonary nodule right lower lobe as seen on CT chest/abdomen/pelvis during hospitalization in mid January for GI symptoms Radiology recommended at that time for 6-month follow-up CT Plan: - Follow up outpatient for repeat imaging #Hypertension #Hyperlipidemia #Fibromyalgia #Migraines All chronic conditions present prior to admission Plan: - Continue home dose of lisinopril 10mg PO qd - Holding statin at this time as fluconazole has a known adverse effect of significantly increasing levels of serum statin - Continue to monitor Health Maintenance: Disposition: Med surg Diet: Cardiac diet GI prophylaxis: None indicated DVT prophylaxis: Lovenox 40mg qd Code: Full code Patient seen and assessed with attending Dr. Izaguirre and senior resident Dr. Pamela Ley, PGY-1 Attending Provider Attestation/Addendum I have examined the patient, reviewed labs and imaging findings, discussed the case with the resident(s), and reviewed entered orders. 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 Patient receiving 5 days of high-dose steroids 1 g Solu-Medrol daily and then will transition to oral taper Repeat EEG before and after steroids per neuro #Acute CVA 02/29/2024 MRI showed 17 mm acute infract left basal ganglia Neurodeficits of right hemiparesis and aphasia Continue aspirin monotherapy 81 mg p.o. daily Hold statin therapy while receiving high dose fluconazole Hold Plavix for now out of concern for bleeding risk Continue PT, OT, and speech therapy # Euvolemic hyponatremia Relatively stable Nephrology following Euvolemic at this time and will continue to monitor sodium closely # H. pylori infection Continue triple therapy treatment for [address] Izaguirre
--- NOTE | 2024-03-12 23:56 | ESPR_ITS ---
Documentation for date of: 03/12/24 Subjective Subjective Interval history: Patient was seen in [facility] with family at the bedside. She continues to be right hemiplegic but able to communicate better. she has no more abnormal involuntary movements involving the face/left upper extremity. Family stated that she has very good appetite and is able to tolerate oral diet. Exam - Neurology Vital Signs Temp Pulse Resp BP Pulse Ox O2 Del Method 97.0 F 81 22 H 115/67 97 Room Air 03/12/24 20:00 03/12/24 20:00 03/12/24 20:00 03/12/24 20:00 03/12/24 20:00 03/12/24 20:00 Narrative Exam GENERAL APPEARANCE: Well developed, well-nourished in no acute distress. HEENT: Normocephalic, atraumatic, extraocular movements intact. Pupils: Equal reacting to light NECK: Supple, no JVD or bruits. CARDIOVASULAR: Heart: S1, S2 heard, regular without S3-S4 or murmur no rubs or gallops. LUNGS/CHEST: Clear to auscultation bilaterally. No rails, rhonchi, or wheezing. Normal inspection. ABDOMEN: Soft, nontender, with normal bowel sounds. No pulsatile masses. No rebound, rigidity, or guarding. Normal inspection and palpation. EXTREMITIES: Normal inspection and palpation. No edema, clubbing or cyanosis. SKIN: Warm and dry without rashes. Normal inspection. MUSCULOSKELETAL: No cervical, thoracic, lumbar or midline bony tenderness. Normal inspection. NEURO: Alert, awake and able to say more words and names of family members. Dense right hemiplegia noted. Purposeful movements noted in the left upper and lower extremities along with occasional abnormal involuntary movements in the left upper and the face. no signs of meningeal irritation noted. PSYCHIATRIC: normal mood and affect. Objective Labs 03/12/24 03:43 03/12/24 03:43 Labs: Laboratory Results - last 24 hr 03/02/24 03/04/24 03/12/24 12:00 15:40 03:43 WBC 15.8 H D RBC 3.86 L Hgb 12.2 Hct 35.9 L MCV 93 MCH 31.6 MCHC 34.0 RDW Std Deviation 49.6 H Plt Count 311 D Neut % (Auto) 96 H Lymph % (Auto) 2 L Osborne % (Auto) 1 Eos % (Auto) 0 Baso % (Auto) 0 Neut # (Auto) 15.2 H Lymph # (Auto) 0.4 L Osborne # (Auto) 0.2 Eos # (Auto) 0.0 Baso # (Auto) 0.0 Immature Gran # (Auto) 0.05 H Absolute Nucleated RBC 0.00 Immature Gran % 0 Nucleated RBC % 0 Factor V Leiden Mutat NEGATIVE Factor V Leiden Interp See Below Sodium 137 Potassium 3.7 Chloride 101 Carbon Dioxide 24.0 Anion Gap 12 BUN 17 Creatinine 0.6 Estim Creat Clear Calc 79.8 eGFR > 60 BUN/Creatinine Ratio 28 H Glucose 150 H Calculated Osmolality 278 Calcium 10.6 Vitamin B6 2.7 Homocysteine 13.8 H Assessment & Plan Assessment and plan (1) Abnormal involuntary movements: Status: Acute Assessment and plan: 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 Hyponatremia is commonly associated with it. csf showed lymphocytic pleocytosis and elevated protein and low glucose still. FU with serum and CSF for autoimmune encephalitis panel: specifically: VGKC and LGI1 ab started her on steroids, completed 3 doses, 2 more doses of IV Solu-Medrol 1 gram followed by oral taper for 5 days. As there is significant improvement in mental status and focal dystonic movements, will hold off on trial of IVIG therapy for now. Will do a repeat EEG after completing the 5 days course of steroids. As there is no improvement in right-sided motor function, she would need inpatient rehab, compensator worker needs to look into placement for acute rehab where she can finish the oral steroid taper: 50 mg: day 1, 40 mg: day 2, 30 mg: day3, 20 mg: day4 and 10 mg: day 5. (2) Acute right hemiparesis: Status: Acute Assessment and plan: MRI brain showed multiple periventricular white matter changes suspicious for demyelination. Along with acute infarction involving the left basal ganglia. MRV: Limited study from motion Echocardiogram: Normal study CSF for MS panel: only oligoclonal bands positive. Continue with aspirin 81 mg a day Continue with PT/OT (3) Aphasia: Status: Acute Assessment and plan: Secondary to recent ? ischemic event Continue with speech therapy noted some improvement today (4) Recent cerebrovascular accident: Status: Chronic Assessment and plan: With new onset right-sided weakness and aphasia Continue with aspirin (5) Essential (primary) hypertension: Status: Acute Assessment and plan: Continue with the blood pressure control (6) Chronic migraine: Status: Chronic Assessment and plan: By history, stable now. (7) Coccidioidomycosis meningitis: Status: Acute Assessment and plan: CSF findings: Consistent with cocci meningitis : Cell count, protein and glucose with serology continue with the Diflucan for life with close monitoring of liver enzymes.
[2024-03-13] VITALS (11 sets, daily range): BP systolic 110–129; BP diastolic 64–80; PULSE 73–93; RESP 14–20; TEMP 36.1–36.4; O2SAT 96–99; BMI 21.8
[2024-03-13 05:46] LABS: Basophils % (Auto) 0 % (0-2.5); Eosinophils % (Auto) 0 % (0-10); Hemoglobin 12.3 g/dL (12.0-16.0); Immature Granulocytes % (Auto) 1 % (0-0); Immature Granulocytes Auto 0.06 Thou/mm3 (0.00-0.00); Lymphocytes # (Auto) 0.2 Thou/mm3 (1.0-4.8); Lymphocytes % (Auto) 2 % (10-50); Mean Corpuscular HGB Conc 33.2 g/dl (31.0-37.0); Mean Corpuscular Hemoglobin 31.4 pg (25.0-35.0); Mean Corpuscular Volume 94 fL (80-100); Monocytes # (Auto) 0.2 Thou/mm3 (0.0-0.8); Monocytes % (Auto) 1 % (0-12); Neutrophils # (Auto) 10.8 Thou/mm3 (1.8-7.7); Neutrophils % (Auto) 96 % (37-80); Nucleated Red Blood Cell % 0 /100 WBC (0); Platelet Count 319 Thou/mm3 (140-440); RDW Standard Deviation 51.6 fL (36.4-46.3); Red Blood Count 3.92 Miln/mm3 (4.00-5.20); White Blood Count 11.3 Thou/mm3 (3.6-11.0)
[2024-03-13 06:08] LABS: Anion Gap 9 (7-16); BUN/Creatinine Ratio 30 Ratio (12-20); Blood Urea Nitrogen 18 mg/dL (9-23); Calcium 10.4 mg/dL (8.3-10.6); Carbon Dioxide 27.1 mMol/L (20.0-31.0); Chloride 102 mMol/L (98-107); Creatinine (Component) 0.6 mg/dL (0.6-1.3); Estimated Creatinine Clearance 79.8 mL/min (>60); Glucose 149 mg/dL (74-106); Osmolality,Calculated 280 (275-295); Potassium 3.6 mMol/L (3.4-5.1); Sodium 138 mMol/L (136-145); eGFR > 60 See Note
[2024-03-13] MEDS: ASPIRIN EC 81 MG TABEC PO (08:53)
[2024-03-13] MEDS: FLUCONAZOLE 100 MG TABLET 800 MG PO (08:54)
[2024-03-13] MEDS: Lisinopril 2.5 MG TABLET 10 MG PO (08:54)
[2024-03-13] MEDS: PANTOPRAZOLE 40 MG TABLET PO ×2 (08:54→21:23)
[2024-03-13] MEDS: MethylPREDNISolone. 1,000 MG in SODIUM CHLORIDE 0.9% 250 ML 250 ML 266 MG IV (08:55)
[2024-03-13] MEDS: CLARITHROMYCIN 250 MG TABLET 500 MG PO ×2 (08:55→21:22)
[2024-03-13] MEDS: AMOXICILLIN 250 MG CAPSULE 1000 MG PO ×2 (08:55→21:22)
--- NOTE | 2024-03-13 14:19 | ESPR_ITS ---
<Statement entered by Prince Del Rosario MD - 03/13/24 21:58> Senior Resident Attestation: I supervised/discussed management plan with resident physician Dr. Damon Lomeli, and was involved in the care of this patient. I personally saw and examined the patient and discussed the assessment and plan with the entire medicine team, including my attending. I agree with the assessment and plan as documented. Patient's care was discussed with attending physician, Dr. 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 Given patient's clinical status, daughter at bedside provided history. Father called daughter stating that patient was weak to get out of bed, then son went to see patient at 10 a.m. and patient was not responding to questions. EMS was called and patient was then brought to the ED. In ED, patient was noted to have right-sided hemiparesis, right-sided facial droop, and aphasia so stroke alert was called. Initial CT head showed concern for possible SAH versus artifact. However, patient not candidate for thrombolytics given recent stroke within last month and outside of window. Of note, patient discharged 02/03 after being admitted for gastroenteritis, found to have elevated CA 125, and was told to follow-up with Dr. Wetzel outpatient but had not been able to due to insurance issues. 02/28: No acute overnight events to report. Patient seen and examined in hospital bed with and daughter at bedside. Patient was difficult to arouse; however, eventually she woke up. Patient is nonverbal at this time but is able to track with his eyes and seems to understand questioning by giving a thumbs up sign. There is definite right-sided facial drooping noted when patient is asked to smile or opening her mouth. Teleneurology was consulted and the recommendation was to repeat MRI with contrast along with MRV. Telemetry neurology also recommends with discontinuing some of the empiric medications but to follow-up with ID which has also been consulted. Infectious disease recommends on discontinuing vancomycin to continue the other medications at this time. 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 03/01: No acute overnight events to report. Patient seen and examined this a.m. with mild neurologic improvement; patient is able to communicate minimally with 1-2 words but has persistent right-sided upper and lower extremity weakness, left-sided neglect and persistent facial droop. Repeat brain MRI with contrast was positive for 17 mm acute infarct of the left basal ganglia. Patient's family bedside question regarding her use of aspirin and Plavix after she got her first CVA on January 2024; they state that she took her medications as prescribed. Patient had a stroke even with antiplatelets on; teleneurology has been consulted and are following the patient closely. 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 Once patient makes some progress, she will need to be treated for H. pylori and she will need follow-up with Dr. Wetzel regarding pulmonary nodule 10 mm which was found on CT. 03/02: No acute overnight events. Dr. Hernandez has given recommendations to stop antibiotics, acyclovir, and statins (for the time being) for previous differential of diagnosis bacterial meningitis as they can negative interact with fluconazole clearance and at this point, bacterial etiology behind patient's clinical condition unlikely. Will plan to restart statin after fluconazole course ends next week. With regards to patient's untreated previously diagnosed H. pylori from 02/01/24, started triple therapy, namely protonix 40mg BID, clarithromycin 500mg BID, and amoxicillin 1g BID x14 days as per guidelines for H. pylori triple therapy treatment. Teleneurology saw the patient today and recommended routine EEG and to start aspirin 81mg PO qd, but to hold off on Plavix at this time, as Dr. Romero can not rule out fungal abscess secondary to coccidiomycosis as an etiology behind patient's condition. Lisinopril 10mg PO qd started for blood pressure control, thiamine 500mg IV BID started x2 days and will lower to 250mg IV BID x5 days afterwards. Ordered TSH, NH3, B6/B9/B12, A1c as further workup for patient's symptoms. 03/03: No acute overnight events. Patient working with speech and occupational therapy this morning, making small improvements each day. Still experiencing global aphasia and complete motorsensory loss of right half of her body, but alert, nods/shakes her head or gives thumbs up/down, and follows along in conversations. Continuining IV thiamine with last dosage tomorrow. No further recommendations from neurology. 03/04: No acute overnight events to report. Patient seen and examined in hospital bed with difficulty verbalizing; which is a new finding from previous days. As such, CT of head/brain without contrast has been ordered which showed suspicions for a subarachnoid hemorrhage still present in the right horizontal sylvian cistern and recommendations to get diagnostic lumbar puncture. Patient has had lumbar puncture which did not show any blood; thus, clinically suspicion remains low for subarachnoid hemorrhage. Will order a hypercoagulable order set as the patient developed a stroke even while being on aspirin and Plavix. Teleneurology following; appreciate recommendations regarding starting Plavix or not. Will continue fluconazole treatment for possible cocci meningitis/abscess; pending ID recommendations and cocci CSF studies. Patient will continue to be treated for H. pylori. 03/05: No acute overnight events to report. Patient seen and examined in hospital bed continuing to make incremental progress; however, still has difficulty ambulating right-sided upper and lower extremities, left-sided extremities slightly better. Patient able to verbalize very slowly with a couple words when spoken to in [place]o. Teleneurology is following the patient; they have recommended repeat LP which will be completed tomorrow (03/06) secondary to CT results which show still persistent subarachnoid hemorrhage. Our suspicions for an actual subarachnoid hemorrhage remain low as the patient had an lumbar puncture with did not show any signs of bleeding. Cocci CSF samples have been sent to [facility] and they are pending results per laboratory customer service representative teller. Will continue to monitor for any acute changes. Update: IR team would not like to proceed with the LP as an LP was already completed post-CT SAH finding. There was no sign of bleeding from CSF studies at that time; thus, per IR team acquiring another LP would be redundant and risky at this time. 03/06: No acute overnight events. Patient slowly regaining some speech and left- sided extremity function. Initially planned for repeat LP, but IR suggests against this, stating that it is redundant as patient has already had an LP during this admission. Pending [facility] cocci studies. Per our labaratory, [facility] lab has received the CSF samples and are in the process of analyzing. EEG taken, results pending. Patient's mild hyponatremia worsening day by day, ordered urine osmolality and osmolytes to evaluate for possible salt-wasting. 03/07: No acute overnight events. CSF samples positive for coccidioides IgG and complement fixation. Skill Labor Dr. Paz seen for patient's hyponatremia, recommendations are to continue monitoring as patient's sodium stable this morning. Teleneurologist Dr. 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 Recommendations are to continue aspirin monotherapy, hold plavix at this time, and to repeat MRI in one week post-discharge. Anticipate discharge in next 24-48h. 03/08: No acute overnight events. EEG was performed which demonstrated moderate encephalopathy of nonspecific etiology. Teleneurology recommending to hold off on statin as patient will be on fluconazole for life, and patient's LDL values are under control as is. [facility] rehab states that they would like patient to stay inpatient today in order to facilitate further progress with PT/OT/PARTS ROOM ASSISTANT. Hyponatremia stable today. 03/09: No acute overnight events. Dr. Santiago suspecting autoimmune encephalitis, states that hyponatremia is a common finding with this diagnosis. She plans to repeat lumbar puncture and send CSF for autoimmune encephalitis studies. She plans to start her on Solumedrol x5 days afterwards and to perform repeat EEG both before and after starting her steroids. Family has been updated, are amenable to this plan, and have no further questions at this time. 03/10: No acute overnight events. Lumbar puncture performed last night without complication, CSF sent for workup of autoimmune encephalitis. Started solumedrol 1g/day x 5 days, with EEG planned before and after steroid course. After five days solumedrol, will transition to oral steroid taper for a further five days. Conversation held with family today regarding patient's clinical status and likelihood of recovery going forward. Explained that patient has at least two, possibly three, significant diagnoses affecting her central nervous system that take a significant amount of time and interventions to treat. Family understands and have no further questions at this time. 03/11: No acute overnight events. Patient on 2nd day of 5-day Solumedrol course, making marked improvements in speech cabailities and motor function of right face and extremities. Patient now able to speak 2-3 words at a time with improved speech comprehensibility. Continue working with PT/OT/PARTS ROOM ASSISTANT daily with aspirin monotherapy, pending autoimmune encephalitis study results. 03/12: No acute overnight events to report. Patient seen and examined in hospital bed making incremental improvement in neurological status; able to speak in 2-3 word sentences. Continuing IV Solumedrol as treatment for suspected autoimmune encephalitis; if the patient does not improve, neurologist recommends doing IVIG therapy. 03/13: No acute overnight events. Patient now on 4th day of 5-day IV Solumedrol course. Tomorrow will be her last IV dose before switching to oral taper. At that time will plan to run repeat EEG, may finish her course of oral steroids at inpatient rehabilitation center if stable for discharge. No further need for IVIG at this time per neurology as patient responding very well to IV solumedrol, having significant improvement in speech capability and left-sided motor function over the last several days. Exam Vital Signs Temp Pulse Resp BP Pulse Ox O2 Del Method 96.9 F 73 18 126/69 96 Room Air 03/13/24 11:53 03/13/24 11:53 03/13/24 11:53 03/13/24 11:53 03/13/24 11:53 03/13/24 11:53 Narrative Exam Gen: Alert, appears stated age, in no acute distress, able to respond to questions with thumbs up or down, able to speak two or three words at a time, speech still slurred but markedly improved since initial presentation HEENT: NCAT, PERRLA, EOMI, MMM, anicteric conjunctivae, right-sided facial droop present CVS: normal S1 and S2. RRR. No M/R/G. Resp: CTA B/L. No rhonchi, rales, crackles or wheezing. Abd: soft, non-tender, non-distended. BS+ in all 4 quadrants. MSK: Limited range of motion of extremities, no motion in right extremities. No edema or rash. Neuro: Speech slurred, eyes tracking individuals in room as they move, right- sided strength 0/5, left-sided strength improved from 2/5 to 4/5, right-sided facial droop present but much improved Objective Labs 03/14/24 04:10 03/14/24 04:10 Labs: Laboratory Results - last 24 hr 03/13/24 04:36 WBC 11.3 H RBC 3.92 L Hgb 12.3 Hct 37.0 MCV 94 MCH 31.4 MCHC 33.2 RDW Std Deviation 51.6 H Plt Count 319 Neut % (Auto) 96 H Lymph % (Auto) 2 L [place] % (Auto) 1 Eos % (Auto) 0 Baso % (Auto) 0 Neut # (Auto) 10.8 H Lymph # (Auto) 0.2 L [place] # (Auto) 0.2 Eos # (Auto) 0.0 Baso # (Auto) 0.0 Immature Gran # (Auto) 0.06 H Absolute Nucleated RBC 0.00 Immature Gran % 1 H Nucleated RBC % 0 Sodium 138 Potassium 3.6 Chloride 102 Carbon Dioxide 27.1 Anion Gap 9 BUN 18 Creatinine 0.6 Estim Creat Clear Calc 79.8 eGFR > 60 BUN/Creatinine Ratio 30 H Glucose 149 H Calculated Osmolality 280 Calcium 10.4 Quality Measures Quality Measures VTE prophylaxis Assessment & Plan Assessment Current Active Medications: Generic Name Dose Route Start Last Admin Trade Name Freq PRN Reason Stop Dose Admin Amoxicillin 1,000 mg 03/02/24 21:00 03/13/24 08:55 Amoxicillin 250 Mg Capsule PO 03/16/24 21:59 1,000 mg BID ROGER Administration Aspirin 81 mg 03/01/24 13:30 03/13/24 08:53 Aspirin Ec 81 Mg Tabec PO 03/31/24 13:29 81 mg QDAY ROGER Administration Clarithromycin 500 mg 03/02/24 21:00 03/13/24 08:55 Clarithromycin 250 Mg Tablet PO 03/16/24 20:59 500 mg BID ROGER Administration Fluconazole 800 mg 03/10/24 13:00 03/13/24 08:54 Fluconazole 100 Mg Tablet PO 04/14/24 10:29 800 mg QDAY ROGER Administration Methylprednisolone Sodium 266 mls @ 266 mls/hr 03/10/24 09:00 03/13/24 08:55 Succinate 1,000 mg/ Sodium IV 03/14/24 09:59 266 mls/hr Chloride DAILY ROGER Administration Lisinopril 10 mg 03/02/24 11:15 03/13/24 08:54 Lisinopril 2.5 Mg Tablet PO 04/01/24 11:14 10 mg QDAY ROGER Administration Ondansetron HCl 4 mg 02/28/24 14:28 Ondansetron Inj 2 Mg/Ml Inj 2 Ml IV 03/29/24 14:27 Q4HR PRN NAUSEA OR VOMITING Pantoprazole Sodium 40 mg 03/02/24 21:00 03/13/24 08:54 Pantoprazole 40 Mg Tablet PO 03/16/24 20:59 40 mg BID ROGER Administration Sennosides 1 tab 02/29/24 16:17 Senna Tablet PO 03/30/24 16:16 QDAY PRN CONSTIPATION Protocol Plan 58-year-old female with a past medical history of hypertension, hyperlipidemia, fibromyalgia, migraines, and 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 Given patient's clinical status, daughter at bedside provided history. Father called daughter stating that patient was weak to get out of bed, then son went to see patient at 10 a.m. and patient was not responding to questions. EMS was called and patient was then brought to the ED. In ED, patient was noted to have right-sided hemiparesis, right-sided facial droop, and aphasia so stroke alert was called. Initial CT head showed concern for possible SAH versus artifact. However, patient not candidate for thrombolytics given recent stroke within last month and outside of window. Of note, patient discharged 02/03 after being admitted for gastroenteritis, found to have elevated CA 125, and was told to follow-up with Dr. Wetzel outpatient but had not been able to due to insurance issues. 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 Repeat MRI with contrast demonstrated 17mm acute infarct of left basal ganglia Patient has history of Cocci IgM and IgG CSF is clear, colorless with 72 WBC and 23 RBC, 5 mononuclear WBC and 95 polynuclear WBC, glucose low at 27 and total protein elevated at 179. CSF influenza, meningitis, strep negative pending mild protein only with no bands and cocci Venogram MRI degraded study Speech therapy recommends extensive speech therapy for months PT recommends acute rehab placement Lipid panel, TSH, NH3, B6/B9/B12, and A1c were ordered for further evaluation, all were within normal limits Repeat CT Head/Brain findings remained suspicious for SAH; however LP was negative for blood (low RBC count) and was clear Protein C/S negative EEG shows multifocal slowing and spike/dome appearance in frontal, central and temporal areas Plan: - Day 4 of 5 of 1g Solu-Medrol for autoimmune encephalitis; will require 5 days of oral steroid tapering afterwards (will remain in the hospital for at least 1 more days for IV steroids) - Neurologist Dr. Santiago consulted, appreciate recs - Follow-up on VGKC and LGI1 antibodies outpatient with neurology - ID consulted, Dr. Hernandez following - Continue aspirin 81mg PO qd - Continue Fluconazole 800mg PO HS for confirmed coccidioides - Neurochecks q4h - DVT prophylaxis - Head of bed 30 degrees - Euglycemia and avoid hyperthermia - Holding off on Plavix at this time per teleneurology's recommendations, continue aspirin monotherapy - Teleneurology recommending to continue holding statin as patient's LDL is low and cholesterol an unlikely mechanism for current presentation - Pending factor V studies #Euvolemic Hyponatremia-resolved Patient slowly developing hyponatremia since admission, lowering approximately 1-2 mEq Na per day. On morning of 03/06, Na 128, and on recheck at 2PM, 126. Patient is likely euvolemic. Initially suspected hyponatremia to be due to poor oral intake, but patient has been tolerating her cardiac diet well and working with speech therapy daily. - Nephrology Dr. Paz consulted, appreciate recommendations - Recommendations are to continue monitoring sodium level daily - Will recheck in AM #H. 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 Pompa was consulted time, completed EGD and biopsy Pathology confirmed H. pylori infection Patient's family states that she was never treated for H. pylori after discharge and never followed up outpatient with PCP or Dr. Peña Wetzel was also consulted due to Elevated CA 125 and CA 19?9 pending Plan: - Completed full 2-week course of triple therapy on 03/13/24 - Follow-up with oncologist Dr. Wetzel outpatient for further evaluation of possible GI malignancy as seen by elevated cancer markers in serum #10mm Pulmonary Nodule 10mm pulmonary nodule right lower lobe as seen on CT chest/abdomen/pelvis during hospitalization in mid January for GI symptoms Radiology recommended at that time for 6-month follow-up CT Plan: - Follow up outpatient for repeat imaging #Hypertension #Hyperlipidemia #Fibromyalgia #Migraines All chronic conditions present prior to admission Plan: - Continue home dose of lisinopril 10mg PO qd - Holding statin at this time as fluconazole has a known adverse effect of significantly increasing levels of serum statin - Continue to monitor Health Maintenance: Disposition: Med surg Diet: Cardiac diet GI prophylaxis: None indicated DVT prophylaxis: Lovenox 40mg qd Code: Full code Case disclosed with Attending Dr. Card and my senior Dr. Del Rosario PGY3. Steven Pennington PGY1 Attending Provider Attestation/Addendum In short, patient is a 58 female with a significant past medical history of hypertension, hyperlipidemia, fibromyalgia, migraines, CVA approximately 20 years ago resenting to the ED with aphasia and right-sided deficits. Initial CT concerning for possible subarachnoid hemorrhage, patient not given thrombolytics as she was outside of the window, recent discharge on 02/03 for gastroenteritis however had apparent elevation in CA125 and was instructed to follow-up with Dr. Wetzel on an outpatient basis. Interval history: 03/13: No acute events overnight. Vital signs stable, patient afebrile overnight. Significant labs include a slightly elevated WBC at 11.3, BMP largely unremarkable. Blood glucose well-controlled previous day. EEG results demonstrated abnormal paroxysmal multifocal slowing and spike and wave activity in both the frontal central and temporal areas however significant movement artifact was noted on study. ASSESSMENT/PLAN: #Autoimmune encephalitis #Disseminated coccidiomycosis, Coccidioides meningitis #Left basal ganglia CVA #History of CVA, right cerebellar hemisphere ?Neurology consulted, appreciate recommendations ?Infectious disease consulted, appreciate recommendations ?Will continue Solu-Medrol for now begin an oral tapering regiment tomorrow 03/14 ?Will continue aspirin 81 mg daily for now, Plavix held per neurology recommendations ?Will continue fluconazole 800 mg p.o. nightly, patient will need to be on fluconazole for life ?Stroke precautions: Neurochecks every 4 hours, DVT prophylaxis, HOB 30 degrees, maintain euglycemia ?Coagulation studies pending ?Repeat EEG after IV steroids will place order tomorrow 03/14 #H. pylori infection: Will continue triple therapy until 03/16 #Pulmonary nodule, 1 cm will follow-up in 6 months with repeat imaging or based on on-call neurology recommendations # Mild leukocytosis, likely secondary to steroids versus infection Chronic problems: #Hypertension #Hyperlipidemia #Fibromyalgia #Migraines ? Will continue home meds as appropriate DISPO: Likely 2 to 3 days pending specialist recommendations, PT note 03/01 recommending SNF
--- NOTE | 2024-03-13 23:28 | PD.NEUROPROG ---
Documentation for date of: 03/13/24 Subjective Subjective Interval history: Patient was seen in [facility] with family at the bedside. She continues to be right hemiplegic but able to communicate better. she has no more abnormal involuntary movements involving the face/left upper extremity. Exam - Neurology Vital Signs Temp Pulse Resp BP Pulse Ox O2 Del Method 96.9 F 76 17 119/66 98 Room Air 03/13/24 20:00 03/13/24 20:13 03/13/24 20:00 03/13/24 20:00 03/13/24 20:00 03/13/24 20:00 Narrative Exam GENERAL APPEARANCE: Well developed, well-nourished in no acute distress. HEENT: Normocephalic, atraumatic, extraocular movements intact. Pupils: Equal reacting to light NECK: Supple, no JVD or bruits. CARDIOVASULAR: Heart: S1, S2 heard, regular without S3-S4 or murmur no rubs or gallops. LUNGS/CHEST: Clear to auscultation bilaterally. No rails, rhonchi, or wheezing. Normal inspection. ABDOMEN: Soft, nontender, with normal bowel sounds. No pulsatile masses. No rebound, rigidity, or guarding. Normal inspection and palpation. EXTREMITIES: Normal inspection and palpation. No edema, clubbing or cyanosis. SKIN: Warm and dry without rashes. Normal inspection. MUSCULOSKELETAL: No cervical, thoracic, lumbar or midline bony tenderness. Normal inspection. NEURO: Alert, awake and able to say more words and names of family members. Dense right hemiplegia noted. Purposeful movements noted in the left upper and lower extremities noted.. no signs of meningeal irritation noted. PSYCHIATRIC: normal mood and affect. Objective Labs 03/13/24 04:36 03/13/24 04:36 Labs: Laboratory Results - last 24 hr 03/13/24 04:36 WBC 11.3 H RBC 3.92 L Hgb 12.3 Hct 37.0 MCV 94 MCH 31.4 MCHC 33.2 RDW Std Deviation 51.6 H Plt Count 319 Neut % (Auto) 96 H Lymph % (Auto) 2 L [place] % (Auto) 1 Eos % (Auto) 0 Baso % (Auto) 0 Neut # (Auto) 10.8 H Lymph # (Auto) 0.2 L [place] # (Auto) 0.2 Eos # (Auto) 0.0 Baso # (Auto) 0.0 Immature Gran # (Auto) 0.06 H Absolute Nucleated RBC 0.00 Immature Gran % 1 H Nucleated RBC % 0 Sodium 138 Potassium 3.6 Chloride 102 Carbon Dioxide 27.1 Anion Gap 9 BUN 18 Creatinine 0.6 Estim Creat Clear Calc 79.8 eGFR > 60 BUN/Creatinine Ratio 30 H Glucose 149 H Calculated Osmolality 280 Calcium 10.4 Assessment & Plan Assessment and plan (1) Abnormal involuntary movements: Status: Acute Assessment and plan: 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 Hyponatremia is commonly associated with it. csf showed lymphocytic pleocytosis and elevated protein and low glucose still. FU with serum and CSF for autoimmune encephalitis panel: specifically: VGKC and LGI1 ab started her on steroids, completed 4 doses, 1 more dose of IV Solu-Medrol 1 gram followed by oral taper for 5 days. As there is significant improvement in mental status and focal dystonic movements, will hold off on trial of IVIG therapy for now. Will do a repeat EEG after completing the 5 days course of steroids. 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 (2) Acute right hemiparesis: Status: Acute Assessment and plan: MRI brain showed multiple periventricular white matter changes suspicious for demyelination. Along with acute infarction involving the left basal ganglia. MRV: Limited study from motion Echocardiogram: Normal study CSF for MS panel: only oligoclonal bands positive. Continue with aspirin 81 mg a day Continue with PT/OT (3) Aphasia: Status: Acute Assessment and plan: Secondary to recent ? ischemic event Continue with speech therapy noted some improvement today (4) Recent cerebrovascular accident: Status: Chronic Assessment and plan: With new onset right-sided weakness and aphasia Continue with aspirin (5) Essential (primary) hypertension: Status: Acute Assessment and plan: Continue with the blood pressure control (6) Chronic migraine: Status: Chronic Assessment and plan: By history, stable now. (7) Coccidioidomycosis meningitis: Status: Acute Assessment and plan: CSF findings: Consistent with cocci meningitis : Cell count, protein and glucose with serology continue with the Diflucan for life with close monitoring of liver enzymes.
[2024-03-14] VITALS (10 sets, daily range): BP systolic 112–132; BP diastolic 63–74; PULSE 71–84; RESP 16–18; TEMP 36.1–36.8; O2SAT 95–99; BMI 21.8; BMI 12.0
[2024-03-14 05:51] LABS: Basophils % (Auto) 0 % (0-2.5); Eosinophils % (Auto) 0 % (0-10); Hematocrit 34.4 % (36.0-46.0); Hemoglobin 11.9 g/dL (12.0-16.0); Immature Granulocytes % (Auto) 1 % (0-0); Immature Granulocytes Auto 0.05 Thou/mm3 (0.00-0.00); Lymphocytes # (Auto) 0.3 Thou/mm3 (1.0-4.8); Lymphocytes % (Auto) 4 % (10-50); Mean Corpuscular HGB Conc 34.6 g/dl (31.0-37.0); Mean Corpuscular Hemoglobin 31.9 pg (25.0-35.0); Mean Corpuscular Volume 92 fL (80-100); Monocytes # (Auto) 0.1 Thou/mm3 (0.0-0.8); Monocytes % (Auto) 2 % (0-12); Neutrophils # (Auto) 7.5 Thou/mm3 (1.8-7.7); Neutrophils % (Auto) 94 % (37-80); Nucleated Red Blood Cell % 0 /100 WBC (0); Platelet Count 305 Thou/mm3 (140-440); RDW Standard Deviation 49.6 fL (36.4-46.3); Red Blood Count 3.73 Miln/mm3 (4.00-5.20)
[2024-03-14 06:12] LABS: Anion Gap 10 (7-16); BUN/Creatinine Ratio 32 Ratio (12-20); Blood Urea Nitrogen 19 mg/dL (9-23); Carbon Dioxide 27.2 mMol/L (20.0-31.0); Chloride 99 mMol/L (98-107); Creatinine (Component) 0.6 mg/dL (0.6-1.3); Potassium 3.4 mMol/L (3.4-5.1); Sodium 136 mMol/L (136-145)
[2024-03-14 06:13] LABS: Estimated Creatinine Clearance 79.8 mL/min (>60); Glucose 149 mg/dL (74-106); Osmolality,Calculated 277 (275-295); eGFR > 60 See Note
[2024-03-14] MEDS: Lisinopril 2.5 MG TABLET 10 MG PO (08:30)
[2024-03-14] MEDS: PANTOPRAZOLE 40 MG TABLET PO ×2 (08:31→21:07)
[2024-03-14] MEDS: ASPIRIN EC 81 MG TABEC PO (08:31)
[2024-03-14] MEDS: FLUCONAZOLE 100 MG TABLET 800 MG PO (08:31)
[2024-03-14] MEDS: CLARITHROMYCIN 250 MG TABLET 500 MG PO ×2 (08:31→21:07)
[2024-03-14] MEDS: MethylPREDNISolone. 1,000 MG in SODIUM CHLORIDE 0.9% 250 ML 250 ML 266 MG IV (08:40)
[2024-03-14] MEDS: AMOXICILLIN 250 MG CAPSULE 1000 MG PO ×2 (10:03→21:07)
--- NOTE | 2024-03-14 12:49 | PD.IDPROG ---
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 Exam Vital Signs Temp Pulse Resp BP Pulse Ox O2 Del Method 98.1 F 80 17 113/63 97 Room Air 03/14/24 08:00 03/14/24 09:45 03/14/24 08:00 03/14/24 08:30 03/14/24 08:00 03/14/24 08:00 Narrative Exam limited visit Objective - Internal Medicine Labs 03/14/24 04:10 03/14/24 04:10 Labs: Laboratory Results - last 24 hr 03/14/24 04:10 WBC 8.0 RBC 3.73 L Hgb 11.9 L Hct 34.4 L MCV 92 MCH 31.9 MCHC 34.6 RDW Std Deviation 49.6 H Plt Count 305 Neut % (Auto) 94 H Lymph % (Auto) 4 L [place] % (Auto) 2 Eos % (Auto) 0 Baso % (Auto) 0 Neut # (Auto) 7.5 Lymph # (Auto) 0.3 L [place] # (Auto) 0.1 Eos # (Auto) 0.0 Baso # (Auto) 0.0 Immature Gran # (Auto) 0.05 H Absolute Nucleated RBC 0.00 Immature Gran % 1 H Nucleated RBC % 0 Sodium 136 Potassium 3.4 Chloride 99 Carbon Dioxide 27.2 Anion Gap 10 BUN 19 Creatinine 0.6 Estim Creat Clear Calc 79.8 eGFR > 60 BUN/Creatinine Ratio 32 H Glucose 149 H Calculated Osmolality 277 Calcium 10.0 Assessment & Plan A&P Narrative encephalitis, cva and cocci hx of cocci. original dx january 2024: 1:16 serum. not treated till more recently rt [facility] more c/w cva and less so with cocci on rx for h pylori dx 02/02/24 by bx. no pud noted on same egd study with pos cocci at [facility], favor rx for cocci with flucon. po is same as iv if she can take enterally and she is on enteral flucon, dose adjusted for pos csf on 03/07/24 ok for long term acute care registered nurse care if ready otherwise can see in clinic if referred by outpt primary (its an insurance rule) but need cocci in serum and csf from d will see in house again prn Time Spent With Patient Time: Total time spent is greater than 50% in coordination of care (as documented) at patient's floor/unit and/or counseling patient:
--- NOTE | 2024-03-14 14:33 | ESPR_ITS ---
<Statement entered by Lois Santiago MD - 03/14/24 16:53> I discussed with and supervised the internet marketing analyst physician who took care of this patient. I personally saw and examined the patient and discussed the assessment and plan with the entire medicine team, including my attending Dr. Card, I agree with most of the assessment and plan as documented below Lois Santiago M.D. 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 Given patient's clinical status, daughter at bedside provided history. Father called daughter stating that patient was weak to get out of bed, then son went to see patient at 10 a.m. and patient was not responding to questions. EMS was called and patient was then brought to the ED. In ED, patient was noted to have right-sided hemiparesis, right-sided facial droop, and aphasia so stroke alert was called. Initial CT head showed concern for possible SAH versus artifact. However, patient not candidate for thrombolytics given recent stroke within last month and outside of window. Of note, patient discharged 02/03 after being admitted for gastroenteritis, found to have elevated CA 125, and was told to follow-up with Dr. Damari seymour but had not been able to due to insurance issues. 02/28: No acute overnight events to report. Patient seen and examined in hospital bed with and daughter at bedside. Patient was difficult to arouse; however, eventually she woke up. Patient is nonverbal at this time but is able to track with his eyes and seems to understand questioning by giving a thumbs up sign. There is definite right-sided facial drooping noted when patient is asked to smile or opening her mouth. Teleneurology was consulted and the recommendation was to repeat MRI with contrast along with MRV. Telemetry neurology also recommends with discontinuing some of the empiric medications but to follow-up with ID which has also been consulted. Infectious disease recommends on discontinuing vancomycin to continue the other medications at this time. 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 03/01: No acute overnight events to report. Patient seen and examined this a.m. with mild neurologic improvement; patient is able to communicate minimally with 1-2 words but has persistent right-sided upper and lower extremity weakness, left-sided neglect and persistent facial droop. Repeat brain MRI with contrast was positive for 17 mm acute infarct of the left basal ganglia. Patient's family bedside question regarding her use of aspirin and Plavix after she got her first CVA on January 2024; they state that she took her medications as prescribed. Patient had a stroke even with antiplatelets on; teleneurology has been consulted and are following the patient closely. 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 Once patient makes some progress, she will need to be treated for H. pylori and she will need follow-up with Dr. Wetzel regarding pulmonary nodule 10 mm which was found on CT. 03/02: No acute overnight events. Dr. Hernandez has given recommendations to stop antibiotics, acyclovir, and statins (for the time being) for previous differential of diagnosis bacterial meningitis as they can negative interact with fluconazole clearance and at this point, bacterial etiology behind patient's clinical condition unlikely. Will plan to restart statin after fluconazole course ends next week. With regards to patient's untreated previously diagnosed H. pylori from 02/01/24, started triple therapy, namely protonix 40mg BID, clarithromycin 500mg BID, and amoxicillin 1g BID x14 days as per guidelines for H. pylori triple therapy treatment. Teleneurology saw the patient today and recommended routine EEG and to start aspirin 81mg PO qd, but to hold off on Plavix at this time, as Dr. Romero can not rule out fungal abscess secondary to coccidiomycosis as an etiology behind patient's condition. Lisinopril 10mg PO qd started for blood pressure control, thiamine 500mg IV BID started x2 days and will lower to 250mg IV BID x5 days afterwards. Ordered TSH, NH3, B6/B9/B12, A1c as further workup for patient's symptoms. 03/03: No acute overnight events. Patient working with speech and occupational therapy this morning, making small improvements each day. Still experiencing global aphasia and complete motorsensory loss of right half of her body, but alert, nods/shakes her head or gives thumbs up/down, and follows along in conversations. Continuining IV thiamine with last dosage tomorrow. No further recommendations from neurology. 03/04: No acute overnight events to report. Patient seen and examined in hospital bed with difficulty verbalizing; which is a new finding from previous days. As such, CT of head/brain without contrast has been ordered which showed suspicions for a subarachnoid hemorrhage still present in the right horizontal sylvian cistern and recommendations to get diagnostic lumbar puncture. Patient has had lumbar puncture which did not show any blood; thus, clinically suspicion remains low for subarachnoid hemorrhage. Will order a hypercoagulable order set as the patient developed a stroke even while being on aspirin and Plavix. Teleneurology following; appreciate recommendations regarding starting Plavix or not. Will continue fluconazole treatment for possible cocci meningitis/abscess; pending ID recommendations and cocci CSF studies. Patient will continue to be treated for H. pylori. 03/05: No acute overnight events to report. Patient seen and examined in hospital bed continuing to make incremental progress; however, still has difficulty ambulating right-sided upper and lower extremities, left-sided extremities slightly better. Patient able to verbalize very slowly with a couple words when spoken to in Mauritian. Teleneurology is following the patient; they have recommended repeat LP which will be completed tomorrow (03/06) secondary to CT results which show still persistent subarachnoid hemorrhage. Our suspicions for an actual subarachnoid hemorrhage remain low as the patient had an lumbar puncture with did not show any signs of bleeding. Cocci CSF samples have been sent to [facility] and they are pending results per laboratory education courses sales representative. Will continue to monitor for any acute changes. Update: IR team would not like to proceed with the LP as an LP was already completed post-CT SAH finding. There was no sign of bleeding from CSF studies at that time; thus, per IR team acquiring another LP would be redundant and risky at this time. 03/06: No acute overnight events. Patient slowly regaining some speech and left- sided extremity function. Initially planned for repeat LP, but IR suggests against this, stating that it is redundant as patient has already had an LP during this admission. Pending [facility] cocci studies. Per our labaratory, [facility] lab has received the CSF samples and are in the process of analyzing. EEG taken, results pending. Patient's mild hyponatremia worsening day by day, ordered urine osmolality and osmolytes to evaluate for possible salt-wasting. 03/07: No acute overnight events. CSF samples positive for coccidioides IgG and complement fixation. Miter Sawyer Dr. Paz seen for patient's hyponatremia, recommendations are to continue monitoring as patient's sodium stable this morning. Teleneurologist Dr. 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 Recommendations are to continue aspirin monotherapy, hold plavix at this time, and to repeat MRI in one week post-discharge. Anticipate discharge in next 24-48h. 03/08: No acute overnight events. EEG was performed which demonstrated moderate encephalopathy of nonspecific etiology. Teleneurology recommending to hold off on statin as patient will be on fluconazole for life, and patient's LDL values are under control as is. [facility] rehab states that they would like patient to stay inpatient today in order to facilitate further progress with PT/OT/J2EE ENGINEER. Hyponatremia stable today. 03/09: No acute overnight events. Dr. Santiago suspecting autoimmune encephalitis, states that hyponatremia is a common finding with this diagnosis. She plans to repeat lumbar puncture and send CSF for autoimmune encephalitis studies. She plans to start her on Solumedrol x5 days afterwards and to perform repeat EEG both before and after starting her steroids. Family has been updated, are amenable to this plan, and have no further questions at this time. 03/10: No acute overnight events. Lumbar puncture performed last night without complication, CSF sent for workup of autoimmune encephalitis. Started solumedrol 1g/day x 5 days, with EEG planned before and after steroid course. After five days solumedrol, will transition to oral steroid taper for a further five days. Conversation held with family today regarding patient's clinical status and likelihood of recovery going forward. Explained that patient has at least two, possibly three, significant diagnoses affecting her central nervous system that take a significant amount of time and interventions to treat. Family understands and have no further questions at this time. 03/11: No acute overnight events. Patient on 2nd day of 5-day Solumedrol course, making marked improvements in speech cabailities and motor function of right face and extremities. Patient now able to speak 2-3 words at a time with improved speech comprehensibility. Continue working with PT/OT/J2EE ENGINEER daily with aspirin monotherapy, pending autoimmune encephalitis study results. 03/12: No acute overnight events to report. Patient seen and examined in hospital bed making incremental improvement in neurological status; able to speak in 2-3 word sentences. Continuing IV Solumedrol as treatment for suspected autoimmune encephalitis; if the patient does not improve, neurologist recommends doing IVIG therapy. 03/13: No acute overnight events. Patient now on 4th day of 5-day IV Solumedrol course. Tomorrow will be her last IV dose before switching to oral taper. At that time will plan to run repeat EEG, may finish her course of oral steroids at inpatient rehabilitation center if stable for discharge. No further need for IVIG at this time per neurology as patient responding very well to IV solumedrol, having significant improvement in speech capability and left-sided motor function over the last several days. 03/14: No acute overnight events. Today, patient finishes her 5 day course of IV solumedrol, and will undergo final EEG per neurology. Tomorrow, will start oral taper of steroids for another five days. Stable for discharge to inpatient rehabilitation facility starting tomorrow to begin working on regaining the strength in her left side. Exam Vital Signs Temp Pulse Resp BP Pulse Ox O2 Del Method 97.5 F 73 16 126/67 95 Room Air 03/14/24 12:00 03/14/24 12:00 03/14/24 12:00 03/14/24 12:00 03/14/24 12:03/14/24 12:00 Narrative Exam Gen: Alert, appears stated age, in no acute distress, able to respond to questions with thumbs up or down, able to speak two or three words at a time, speech still slurred but markedly improved since initial presentation HEENT: NCAT, PERRLA, EOMI, MMM, anicteric conjunctivae, right-sided facial droop present CVS: normal S1 and S2. RRR. No M/R/G. Resp: CTA B/L. No rhonchi, rales, crackles or wheezing. Abd: soft, non-tender, non-distended. BS+ in all 4 quadrants. MSK: Limited range of motion of extremities, no motion in right extremities. No edema or rash. Neuro: Speech slurred, eyes tracking individuals in room as they move, right- sided strength 0/5, left-sided strength improved from 2/5 to 4/5, right-sided facial droop present but much improved Objective Labs 03/14/24 04:10 03/14/24 04:10 Labs: Laboratory Results - last 24 hr 03/14/24 04:10 WBC 8.0 RBC 3.73 L Hgb 11.9 L Hct 34.4 L MCV 92 MCH 31.9 MCHC 34.6 RDW Std Deviation 49.6 H Plt Count 305 Neut % (Auto) 94 H Lymph % (Auto) 4 L Ashley % (Auto) 2 Eos % (Auto) 0 Baso % (Auto) 0 Neut # (Auto) 7.5 Lymph # (Auto) 0.3 L Ashley # (Auto) 0.1 Eos # (Auto) 0.0 Baso # (Auto) 0.0 Immature Gran # (Auto) 0.05 H Absolute Nucleated RBC 0.00 Immature Gran % 1 H Nucleated RBC % 0 Sodium 136 Potassium 3.4 Chloride 99 Carbon Dioxide 27.2 Anion Gap 10 BUN 19 Creatinine 0.6 Estim Creat Clear Calc 79.8 eGFR > 60 BUN/Creatinine Ratio 32 H Glucose 149 H Calculated Osmolality 277 Calcium 10.0 Quality Measures Quality Measures VTE prophylaxis Assessment & Plan Assessment Current Active Medications: Generic Name Dose Route Start Last Admin Trade Name Jabierq PRN Reason Stop Dose Admin Amoxicillin 1,000 mg 03/02/24 21:00 03/14/24 10:03 Amoxicillin 250 Mg Capsule PO 03/16/24 21:59 1,000 mg BID ROGER Administration Aspirin 81 mg 03/01/24 13:30 03/14/24 08:31 Aspirin Ec 81 Mg Tabec PO 03/31/24 13:29 81 mg QDAY ROGER Administration Clarithromycin 500 mg 03/02/24 21:00 03/14/24 08:31 Clarithromycin 250 Mg Tablet PO 03/16/24 20:59 500 mg BID ROGER Administration Fluconazole 800 mg 03/10/24 13:00 03/14/24 08:31 Fluconazole 100 Mg Tablet PO 04/14/24 10:29 800 mg QDAY ROGER Administration Lisinopril 10 mg 03/02/24 11:15 03/14/24 08:30 Lisinopril 2.5 Mg Tablet PO 04/01/24 11:14 10 mg QDAY ROGER Administration Ondansetron HCl 4 mg 02/28/24 14:28 Ondansetron Inj 2 Mg/Ml Inj 2 Ml IV 03/29/24 14:27 Q4HR PRN NAUSEA OR VOMITING Pantoprazole Sodium 40 mg 03/02/24 21:00 03/14/24 08:31 Pantoprazole 40 Mg Tablet PO 03/16/24 20:59 40 mg BID ROGER Administration Sennosides 1 tab 02/29/24 16:17 Senna Tablet PO 03/30/24 16:16 QDAY PRN CONSTIPATION Protocol Plan 58-year-old female with a past medical history of hypertension, hyperlipidemia, fibromyalgia, migraines, and 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 Given patient's clinical status, daughter at bedside provided history. Father called daughter stating that patient was weak to get out of bed, then son went to see patient at 10 a.m. and patient was not responding to questions. EMS was called and patient was then brought to the ED. In ED, patient was noted to have right-sided hemiparesis, right-sided facial droop, and aphasia so stroke alert was called. Initial CT head showed concern for possible SAH versus artifact. However, patient not candidate for thrombolytics given recent stroke within last month and outside of window. Of note, patient discharged 02/03 after being admitted for gastroenteritis, found to have elevated CA-125, and was told to follow-up with Dr. Wetzel outpatient but had not been able to due to insurance issues. 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 Repeat MRI with contrast demonstrated 17mm acute infarct of left basal ganglia Patient has history of Cocci IgM and IgG CSF is clear, colorless with 72 WBC and 23 RBC, 5 mononuclear WBC and 95 polynuclear WBC, glucose low at 27 and total protein elevated at 179. CSF influenza, meningitis, strep negative pending mild protein only with no bands and cocci Venogram MRI degraded study Speech therapy recommends extensive speech therapy for months PT recommends acute rehab placement Lipid panel, TSH, NH3, B6/B9/B12, and A1c were ordered for further evaluation, all were within normal limits Repeat CT Head/Brain findings remained suspicious for SAH; however LP was negative for blood (low RBC count) and was clear Protein C/S negative EEG shows multifocal slowing and spike/dome appearance in frontal, central and temporal areas Plan: - Final day of 1g Solu-Medrol for autoimmune encephalitis; will require 5 days of oral steroid tapering afterwards - Neurologist Dr. Santiago consulted, appreciate recs - Follow-up on VGKC and LGI1 antibodies outpatient with neurology - ID consulted, Dr. Hernandez following - Continue aspirin 81mg PO qd - Continue Fluconazole 800mg PO HS for confirmed coccidioides - Neurochecks q4h - DVT prophylaxis - Head of bed 30 degrees - Euglycemia and avoid hyperthermia - Holding off on Plavix at this time per teleneurology's recommendations, continue aspirin monotherapy - Teleneurology recommending to continue holding statin as patient's LDL is low and cholesterol an unlikely mechanism for current presentation - Pending factor V studies - Anticipate discharge in next 24-48h #Euvolemic Hyponatremia-resolved Patient slowly developing hyponatremia since admission, lowering approximately 1-2 mEq Na per day. On morning of 03/06, Na 128, and on recheck at 2PM, 126. Patient is likely euvolemic. Initially suspected hyponatremia to be due to poor oral intake, but patient has been tolerating her cardiac diet well and working with speech therapy daily. - Nephrology Dr. Paz consulted, appreciate recommendations - Recommendations are to continue monitoring sodium level daily - Will recheck in AM #H. 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 Pompa was consulted time, completed EGD and biopsy Pathology confirmed H. pylori infection Patient's family states that she was never treated for H. pylori after discharge and never followed up outpatient with PCP or Dr. Peña Wetzel was also consulted due to Elevated CA 125 and CA 19?9 pending Plan: - Continue 2-week course of triple therapy finishing on 03/16/24 - Follow-up with oncologist Dr. Wetzel outpatient for further evaluation of possible GI malignancy as seen by elevated cancer markers in serum #10mm Pulmonary Nodule 10mm pulmonary nodule right lower lobe as seen on CT chest/abdomen/pelvis during hospitalization in mid January for GI symptoms Radiology recommended at that time for 6-month follow-up CT Plan: - Follow up outpatient for repeat imaging #Hypertension #Hyperlipidemia #Fibromyalgia #Migraines All chronic conditions present prior to admission Plan: - Continue home dose of lisinopril 10mg PO qd - Holding statin at this time as fluconazole has a known adverse effect of significantly increasing levels of serum statin - Continue to monitor Health Maintenance: Disposition: Med surg Diet: Cardiac diet GI prophylaxis: None indicated DVT prophylaxis: Lovenox 40mg qd Code: Full code Case disclosed with Attending Dr. Card and my senior Dr. Santiago PGY2. Steven Pennington PGY1 Attending Provider Attestation/Addendum In short, patient is a 58 female with a significant past medical history of hypertension, hyperlipidemia, fibromyalgia, migraines, CVA approximately 20 years ago resenting to the ED with aphasia and right-sided deficits. Initial CT concerning for possible subarachnoid hemorrhage, patient not given thrombolytics as she was outside of the window, recent discharge on 02/03 for gastroenteritis however had apparent elevation in CA125 and was instructed to follow-up with Dr. Wetzel on an outpatient basis. Interval history: 03/13: No acute events overnight. Vital signs stable, patient afebrile overnight. Significant labs include a slightly elevated WBC at 11.3, BMP largely unremarkable. Blood glucose well-controlled previous day. EEG results demonstrated abnormal paroxysmal multifocal slowing and spike and wave activity in both the frontal central and temporal areas however significant movement artifact was noted on study. 03/14: Vital signs stable, patient afebrile overnight no acute events overnight. ASSESSMENT/PLAN: #Autoimmune encephalitis #Disseminated coccidiomycosis, Coccidioides meningitis #Left basal ganglia CVA #History of CVA, right cerebellar hemisphere ?Neurology consulted, appreciate recommendations ?Infectious disease consulted, appreciate recommendations ? Will continue IV Solu-Medrol, last dosages today, will transition to p.o. steroids for a 5-day taper tomorrow ?Will continue aspirin 81 mg daily for now, Plavix held per neurology recommendations ?Will continue fluconazole 800 mg p.o. nightly, patient will need to be on fluconazole for life ?Stroke precautions: Neurochecks every 4 hours, DVT prophylaxis, HOB 30 degrees, maintain euglycemia ?Coagulation studies pending ? Repeat EEG today per neurology recommendations. #H. pylori infection: Will continue triple therapy until 03/16 #Pulmonary nodule, 1 cm will follow-up in 6 months with repeat imaging or based on on-call neurology recommendations # Mild leukocytosis, likely secondary to steroids versus infection Chronic problems: #Hypertension #Hyperlipidemia #Fibromyalgia #Migraines ? Will continue home meds as appropriate DISPO: Likely DC on 03/15 to SNF for further rehabilitation
--- NOTE | 2024-03-14 15:54 | PC.SS ---
SS spoke to daughter, Teresita @ [phone] and she wants patient to d/c to [facility]. They will need to get authorization
--- NOTE | 2024-03-14 16:16 | RESP.EEG ---
family refused eeg, wants to try again tonight.
--- NOTE | 2024-03-14 23:50 | PD.VPROG1 ---
Telemedicine visit statement This visit was conducted with the use of phone was obtained on 03/14/24 at 2350. Documentation for date of: 03/14/24 Subjective Subjective Interval history: Patient is in medtelemetry with family. no new complaints noted. Involuntary movements in the face and left UE have been resolved, She denies any headache. Able to communicate much better, right dense hemiplegia unchanged. Virtual exam Vital Signs Temp Pulse Resp BP Pulse Ox O2 Del Method 96.9 F 81 17 118/67 95 Room Air 03/14/24 20:00 03/14/24 20:00 03/14/24 20:00 03/14/24 20:00 03/14/24 20:00 03/14/24 20:00 Objective Labs 03/14/24 04:10 03/14/24 04:10 Labs: Laboratory Results - last 24 hr 03/14/24 04:10 WBC 8.0 RBC 3.73 L Hgb 11.9 L Hct 34.4 L MCV 92 MCH 31.9 MCHC 34.6 RDW Std Deviation 49.6 H Plt Count 305 Neut % (Auto) 94 H Lymph % (Auto) 4 L [place] % (Auto) 2 Eos % (Auto) 0 Baso % (Auto) 0 Neut # (Auto) 7.5 Lymph # (Auto) 0.3 L [place] # (Auto) 0.1 Eos # (Auto) 0.0 Baso # (Auto) 0.0 Immature Gran # (Auto) 0.05 H Absolute Nucleated RBC 0.00 Immature Gran % 1 H Nucleated RBC % 0 Sodium 136 Potassium 3.4 Chloride 99 Carbon Dioxide 27.2 Anion Gap 10 BUN 19 Creatinine 0.6 Estim Creat Clear Calc 79.8 eGFR > 60 BUN/Creatinine Ratio 32 H Glucose 149 H Calculated Osmolality 277 Calcium 10.0 Assessment & Plan Assessment (1) Abnormal involuntary movements: 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 Hyponatremia is commonly associated with it. csf showed lymphocytic pleocytosis and elevated protein and low glucose still. FU with serum and CSF for autoimmune encephalitis panel: specifically: VGKC and LGI1 ab started her on steroids: 1 gram of solumedrol daily for 5 days followed by oral taper for 5 days. She completed 5 days of IV steroids. FU with repeat EEG Will start her on oral steroids starting tomorrow for 5 days: Starting with 50 mg a day, then go down by 10 mg every day. (2) Acute right hemiparesis: MRI brain showed multiple periventricular white matter changes suspicious for demyelination. Along with acute infarction involving the left basal ganglia. MRV: Limited study from motion Echocardiogram: Normal study CSF for MS panel: only oligoclonal bands positive. igG index, IgG synthesis rate and myelin Basic protein: all are wnl Continue with aspirin 81 mg a day Continue with PT/OT Needs placement in acute rehab for continuing physical therapy. (3) Aphasia: Continue to show improvement gradually Secondary to recent ? ischemic event Continue with speech therapy (4) Recent cerebrovascular accident: improving language deficit With new onset right-sided weakness and aphasia Continue with aspirin and PT (5) Essential (primary) hypertension: Continue with the blood pressure control (6) Chronic migraine: By history, stable now. 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
[2024-03-15] VITALS (12 sets, daily range): BP systolic 118–136; BP diastolic 74–87; PULSE 73–99; RESP 17–19; TEMP 35.9–36.4; O2SAT 96–98; BMI 21.7; BMI 12.0
--- NOTE | 2024-03-15 02:24 | PC.RT ---
EEG completed and ready for MD to review
[2024-03-15 05:46] LABS: Basophils % (Auto) 0 % (0-2.5); Eosinophils % (Auto) 0 % (0-10); Hematocrit 35.8 % (36.0-46.0); Hemoglobin 12.2 g/dL (12.0-16.0); Immature Granulocytes % (Auto) 1 % (0-0); Immature Granulocytes Auto 0.07 Thou/mm3 (0.00-0.00); Lymphocytes # (Auto) 0.2 Thou/mm3 (1.0-4.8); Lymphocytes % (Auto) 4 % (10-50); Mean Corpuscular HGB Conc 34.1 g/dl (31.0-37.0); Mean Corpuscular Hemoglobin 31.6 pg (25.0-35.0); Mean Corpuscular Volume 93 fL (80-100); Monocytes # (Auto) 0.1 Thou/mm3 (0.0-0.8); Monocytes % (Auto) 2 % (0-12); Neutrophils # (Auto) 4.9 Thou/mm3 (1.8-7.7); Neutrophils % (Auto) 93 % (37-80); Nucleated Red Blood Cell # 0.02 Thou/mm3 (0.00-0.00); Nucleated Red Blood Cell % 0 /100 WBC (0); Platelet Count 230 Thou/mm3 (140-440); Red Blood Count 3.86 Miln/mm3 (4.00-5.20); White Blood Count 5.3 Thou/mm3 (3.6-11.0)
[2024-03-15 06:15] LABS: Anion Gap 10 (7-16); BUN/Creatinine Ratio 28 Ratio (12-20); Blood Urea Nitrogen 17 mg/dL (9-23); Calcium 9.6 mg/dL (8.3-10.6); Carbon Dioxide 27.4 mMol/L (20.0-31.0); Chloride 99 mMol/L (98-107); Creatinine (Component) 0.6 mg/dL (0.6-1.3); Estimated Creatinine Clearance 79.8 mL/min (>60); Glucose 162 mg/dL (74-106); Osmolality,Calculated 277 (275-295); Potassium 3.2 mMol/L (3.4-5.1); Sodium 136 mMol/L (136-145); eGFR > 60 See Note
[2024-03-15] MEDS: Lisinopril 2.5 MG TABLET 10 MG PO (09:24)
[2024-03-15] MEDS: FLUCONAZOLE 100 MG TABLET 800 MG PO (09:25)
[2024-03-15] MEDS: AMOXICILLIN 250 MG CAPSULE 1000 MG PO ×2 (09:25→21:14)
[2024-03-15] MEDS: POTASSIUM CHLORIDE 10% 20 MEQ/15 ML UDC 40 MEQ PO (09:27)
[2024-03-15] MEDS: ASPIRIN EC 81 MG TABEC PO (09:27)
[2024-03-15] MEDS: PANTOPRAZOLE 40 MG TABLET PO ×2 (09:27→21:14)
--- NOTE | 2024-03-15 10:34 | PC.SS ---
TEQUILA followed up with Charline at [facility] for Auth update and Charline stated that there is still no update.
[2024-03-15] MEDS: predniSONE 40 MG, predniSONE 10 MG 50 MG PO (11:07)
[2024-03-15] MEDS: CLARITHROMYCIN 250 MG TABLET 500 MG PO ×2 (11:07→21:15)
--- NOTE | 2024-03-15 11:49 | ESPR_ITS ---
<Statement entered by Lois Santiago MD - 03/16/24 15:09> Patient seen and examined at bedside. Patient is comfortable and doing well. Patient needs 2 more doses to complete her 14 day course of H.pylori treatment. Patient will have to get a urea breath scan in 4 weeks to see if H.pylori is eradicated. Patient received 50mg of her oral taper today, and will get 40mg tomorrow, 30mg the next day, and 20 mg and then 10mg, for a total of 5 days. Patient most likely will get authorization for SNF on 03/19/24. I discussed with and supervised the seo intern physician who took care of this patient. I personally saw and examined the patient and discussed the assessment and plan with the entire medicine team, including my attending Dr. Card, I agree with most of the assessment and plan as documented below Lois Santiago M.D. PGY-2 Documentation for date of: 03/15/24 Subjective Subjective Interval history: 03/14/2024: No acute overnight events. Today, patient commenced 5 day oral steroid taper per Neurology recommendations; EEG pending final read. Patient will likely be discharged on Monday 03/19 once insurance and case management social worker clear patient for discharge to SNF. Exam Vital Signs Temp Pulse Resp BP Pulse Ox O2 Del Method 96.8 F 75 18 128/78 96 Room Air 03/15/24 08:00 03/15/24 11:03 03/15/24 08:00 03/15/24 09:24 03/15/24 08:00 03/15/24 08:00 Narrative Exam Gen: Alert, appears stated age, in no acute distress, able to respond to questions with thumbs up or down, able to speak two or three words at a time, speech still slurred but markedly improved since initial presentation HEENT: NCAT, PERRLA, EOMI, MMM, anicteric conjunctivae, right-sided facial droop present CVS: normal S1 and S2. RRR. No M/R/G. Resp: CTA B/L. No rhonchi, rales, crackles or wheezing. Abd: soft, non-tender, non-distended. BS+ in all 4 quadrants. MSK: Limited range of motion of extremities, no motion in right extremities. No edema or rash. Neuro: Speech slurred, eyes tracking individuals in room as they move, right- sided strength 0/5, left-sided strength improved from 2/5 to 4/5, right-sided facial droop present but much improved Objective Labs 03/15/24 04:30 03/15/24 04:30 Labs: Laboratory Results - last 24 hr 03/15/24 04:30 WBC 5.3 RBC 3.86 L Hgb 12.2 Hct 35.8 L MCV 93 MCH 31.6 MCHC 34.1 RDW Std Deviation 49.0 H Plt Count 230 D Neut % (Auto) 93 H Lymph % (Auto) 4 L [place] % (Auto) 2 Eos % (Auto) 0 Baso % (Auto) 0 Neut # (Auto) 4.9 Lymph # (Auto) 0.2 L [place] # (Auto) 0.1 Eos # (Auto) 0.0 Baso # (Auto) 0.0 Immature Gran # (Auto) 0.07 H Absolute Nucleated RBC 0.02 H Immature Gran % 1 H Nucleated RBC % 0 Sodium 136 Potassium 3.2 L Chloride 99 Carbon Dioxide 27.4 Anion Gap 10 BUN 17 Creatinine 0.6 Estim Creat Clear Calc 79.8 eGFR > 60 BUN/Creatinine Ratio 28 H Glucose 162 H Calculated Osmolality 277 Calcium 9.6 Quality Measures Quality Measures VTE prophylaxis Assessment & Plan Assessment Current Active Medications: Generic Name Dose Route Start Last Admin Trade Name Alma PRN Reason Stop Dose Admin Amoxicillin 1,000 mg 03/02/24 21:00 03/15/24 09:25 Amoxicillin 250 Mg Capsule PO 03/16/24 21:59 1,000 mg BID ROGER Administration Aspirin 81 mg 03/01/24 13:30 03/15/24 09:27 Aspirin Ec 81 Mg Tabec PO 03/31/24 13:29 81 mg QDAY ROGER Administration Clarithromycin 500 mg 03/02/24 21:00 03/15/24 11:07 Clarithromycin 250 Mg Tablet PO 03/16/24 20:59 500 mg BID ROGER Administration Fluconazole 800 mg 03/10/24 13:00 03/15/24 09:25 Fluconazole 100 Mg Tablet PO 04/14/24 10:29 800 mg QDAY ROGER Administration Lisinopril 10 mg 03/02/24 11:15 03/15/24 09:24 Lisinopril 2.5 Mg Tablet PO 04/01/24 11:14 10 mg QDAY ROGER Administration Ondansetron HCl 4 mg 02/28/24 14:28 Ondansetron Inj 2 Mg/Ml Inj 2 Ml IV 03/29/24 14:27 Q4HR PRN NAUSEA OR VOMITING Pantoprazole Sodium 40 mg 03/02/24 21:00 03/15/24 09:27 Pantoprazole 40 Mg Tablet PO 03/16/24 20:59 40 mg BID ROGER Administration Prednisone 40 mg 03/16/24 09:00 Prednisone 20 Mg Tablet PO 03/16/24 09:01 X1 ONE Prednisone 30 mg 03/17/24 09:00 Prednisone 20 Mg Tablet PO 03/17/24 09:01 X1 ONE Prednisone 20 mg 03/18/24 09:00 Prednisone 20 Mg Tablet PO 03/18/24 09:01 X1 ONE Prednisone 10 mg 03/19/24 09:00 Prednisone 5 Mg Tablet PO 03/19/24 09:01 X1 ONE Sennosides 1 tab 02/29/24 16:17 Senna Tablet PO 03/30/24 16:16 QDAY PRN CONSTIPATION Protocol Plan 58-year-old female with a past medical history of hypertension, hyperlipidemia, fibromyalgia, migraines, and 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 Given patient's clinical status, daughter at bedside provided history. Father called daughter stating that patient was weak to get out of bed, then son went to see patient at 10 a.m. and patient was not responding to questions. EMS was called and patient was then brought to the ED. In ED, patient was noted to have right-sided hemiparesis, right-sided facial droop, and aphasia so stroke alert was called. Initial CT head showed concern for possible SAH versus artifact. However, patient not candidate for thrombolytics given recent stroke within last month and outside of window. Of note, patient discharged 02/03 after being admitted for gastroenteritis, found to have elevated CA-125, and was told to follow-up with Dr. Wetzel outpatient but had not been able to due to insurance issues. 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 Repeat MRI with contrast demonstrated 17mm acute infarct of left basal ganglia Patient has history of Cocci IgM and IgG CSF is clear, colorless with 72 WBC and 23 RBC, 5 mononuclear WBC and 95 polynuclear WBC, glucose low at 27 and total protein elevated at 179. CSF influenza, meningitis, strep negative pending mild protein only with no bands and cocci Venogram MRI degraded study Speech therapy recommends extensive speech therapy for months PT recommends acute rehab placement Lipid panel, TSH, NH3, B6/B9/B12, and A1c were ordered for further evaluation, all were within normal limits Repeat CT Head/Brain findings remained suspicious for SAH; however LP was negative for blood (low RBC count) and was clear Protein C/S and Factor V Leiden negative EEG shows multifocal slowing and spike/dome appearance in frontal, central and temporal areas Plan: 5 days of oral steroid tapering commenced Neurologist Dr. Santiago consulted, appreciate recs Follow-up on VGKC and LGI1 antibodies outpatient with neurology ID consulted, Dr. Hernandez following Continue aspirin 81mg PO qd Continue Fluconazole 800mg PO HS for confirmed coccidioides Neurochecks q4h DVT prophylaxis Head of bed 30 degrees Euglycemia and avoid hyperthermia Holding off on Plavix at this time per teleneurology's recommendations, continue aspirin monotherapy Teleneurology recommending to continue holding statin as patient's LDL is low and cholesterol an unlikely mechanism for current presentation Anticipate discharge Tuesday #Euvolemic Hyponatremia-resolved Patient slowly developing hyponatremia since admission, lowering approximately 1-2 mEq Na per day. On morning of 03/06, Na 128, and on recheck at 2PM, 126. Patient is likely euvolemic. Initially suspected hyponatremia to be due to poor oral intake, but patient has been tolerating her cardiac diet well and working with speech therapy daily. Plan: Nephrology Dr. Paz consulted, appreciate recommendations Recommendations are to continue monitoring sodium level daily Will recheck in AM #H. 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 Pompa was consulted time, completed EGD and biopsy Pathology confirmed H. pylori infection Patient's family states that she was never treated for H. pylori after discharge and never followed up outpatient with PCP or Dr. Peña Wetzel was also consulted due to Elevated CA 125 and CA 19?9 pending Plan: Completed triple therapy(2-week course) on 03/15 Follow-up with oncologist Dr. Wetzel outpatient for further evaluation of possible GI malignancy as seen by elevated cancer markers in serum #10mm Pulmonary Nodule 10mm pulmonary nodule right lower lobe as seen on CT chest/abdomen/pelvis during hospitalization in mid January for GI symptoms Radiology recommended at that time for 6-month follow-up CT Plan: Follow up outpatient for repeat imaging #Hypertension #Hyperlipidemia #Fibromyalgia #Migraines All chronic conditions present prior to admission Plan: Continue home dose of lisinopril 10mg PO qd Holding statin at this time as fluconazole has a known adverse effect of significantly increasing levels of serum statin Continue to monitor Health Maintenance: Disposition: Med surg; likely d/c 03/19 to SNF Diet: Cardiac diet GI prophylaxis: None indicated DVT prophylaxis: Lovenox 40mg qd Code: Full code Case disclosed with Attending Dr. Card and senior resident Dr. Santiago PGY2. Charles Ley, PGY-1 Attending Provider Attestation/Addendum In short, patient is a 58 female with a significant past medical history of hypertension, hyperlipidemia, fibromyalgia, migraines, CVA approximately 20 years ago resenting to the ED with aphasia and right-sided deficits. Initial CT concerning for possible subarachnoid hemorrhage, patient not given thrombolytics as she was outside of the window, recent discharge on 02/03 for gastroenteritis however had apparent elevation in CA125 and was instructed to follow-up with Dr. Wetzel on an outpatient basis. Interval history: 03/13: No acute events overnight. Vital signs stable, patient afebrile overnight. Significant labs include a slightly elevated WBC at 11.3, BMP largely unremarkable. Blood glucose well-controlled previous day. EEG results demonstrated abnormal paroxysmal multifocal slowing and spike and wave activity in both the frontal central and temporal areas however significant movement artifact was noted on study. 03/14: Vital signs stable, patient afebrile overnight no acute events overnight. 03/15. Vital signs stable, patient afebrile overnight, patient doing very well today, no subjective complaints. Significant labs: CBC largely unremarkable, potassium low at 3.2. ASSESSMENT/PLAN: #Autoimmune encephalitis #Disseminated coccidiomycosis, Coccidioides meningitis #Left basal ganglia CVA #History of CVA, right cerebellar hemisphere ?Neurology consulted, appreciate recommendations ?Infectious disease consulted, appreciate recommendations ?Transition to p.o. steroids today for a 5-day taper, starting at 50 mg prednisone ?Will continue aspirin 81 mg daily ?Will continue fluconazole 800 mg p.o. nightly ?Stroke precautions: Neurochecks every 4 hours, DVT prophylaxis, HOB 30 degrees, maintain euglycemia ?Coagulation studies pending ?Repeat EEG performed, read pending ? Replete electrolytes as needed #H. pylori infection: Will continue triple therapy until 03/16 #Pulmonary nodule, 1 cm will follow-up in 6 months with repeat imaging or based on on-call neurology recommendations # Mild leukocytosis?resolved Chronic problems: #Hypertension #Hyperlipidemia #Fibromyalgia #Migraines ? Will continue home meds as appropriate DISPO: SNF pending insurance authorization, likely discharge on 03/19
--- NOTE | 2024-03-15 23:25 | PD.NEUROPROG ---
Documentation for date of: 03/15/24 Subjective Subjective Interval history: Patient was seen in [facility] with family at the bedside. She continues to be right hemiplegic but able to communicate better. she has no more abnormal involuntary movements involving the face/left upper extremity. Exam - Neurology Vital Signs Temp Pulse Resp BP Pulse Ox O2 Del Method 97.6 F 86 18 131/74 H 96 Room Air 03/15/24 20:00 03/15/24 20:00 03/15/24 20:00 03/15/24 20:00 03/15/24 20:00 03/15/24 20:00 Narrative Exam GENERAL APPEARANCE: Well developed, well-nourished in no acute distress. HEENT: Normocephalic, atraumatic, extraocular movements intact. Pupils: Equal reacting to light NECK: Supple, no JVD or bruits. CARDIOVASULAR: Heart: S1, S2 heard, regular without S3-S4 or murmur no rubs or gallops. LUNGS/CHEST: Clear to auscultation bilaterally. No rails, rhonchi, or wheezing. Normal inspection. ABDOMEN: Soft, nontender, with normal bowel sounds. No pulsatile masses. No rebound, rigidity, or guarding. Normal inspection and palpation. EXTREMITIES: Normal inspection and palpation. No edema, clubbing or cyanosis. SKIN: Warm and dry without rashes. Normal inspection. MUSCULOSKELETAL: No cervical, thoracic, lumbar or midline bony tenderness. Normal inspection. NEURO: Alert, awake and able to say more words and names of family members. Dense right hemiplegia noted. Purposeful movements noted in the left upper and lower extremities noted.. no signs of meningeal irritation noted. PSYCHIATRIC: normal mood and affect. Objective Labs 03/17/24 04:47 03/17/24 04:47 Labs: Laboratory Results - last 24 hr 03/15/24 04:30 WBC 5.3 RBC 3.86 L Hgb 12.2 Hct 35.8 L MCV 93 MCH 31.6 MCHC 34.1 RDW Std Deviation 49.0 H Plt Count 230 D Neut % (Auto) 93 H Lymph % (Auto) 4 L [place] % (Auto) 2 Eos % (Auto) 0 Baso % (Auto) 0 Neut # (Auto) 4.9 Lymph # (Auto) 0.2 L [place] # (Auto) 0.1 Eos # (Auto) 0.0 Baso # (Auto) 0.0 Immature Gran # (Auto) 0.07 H Absolute Nucleated RBC 0.02 H Immature Gran % 1 H Nucleated RBC % 0 Sodium 136 Potassium 3.2 L Chloride 99 Carbon Dioxide 27.4 Anion Gap 10 BUN 17 Creatinine 0.6 Estim Creat Clear Calc 79.8 eGFR > 60 BUN/Creatinine Ratio 28 H Glucose 162 H Calculated Osmolality 277 Calcium 9.6 Assessment & Plan Assessment and plan (1) Abnormal involuntary movements: Status: Resolved Assessment and plan: 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 Hyponatremia is commonly associated with it. csf showed lymphocytic pleocytosis and elevated protein and low glucose still. FU with serum and CSF for autoimmune encephalitis panel: specifically: VGKC and LGI1 ab Completed IV Solu-Medrol for 5 days , now she is on oral prednisone taper As there is significant improvement in mental status and focal dystonic movements, will hold off on trial of IVIG therapy for now. As there is no improvement in right-sided motor function, she would need inpatient rehab, she is waiting for placement (2) Acute right hemiparesis: Status: Acute Assessment and plan: MRI brain showed multiple periventricular white matter changes suspicious for demyelination. Along with acute infarction involving the left basal ganglia. MRV: Limited study from motion Echocardiogram: Normal study CSF for MS panel: only oligoclonal bands positive. Follow-up with the CSF analysis for autoimmune encephalitis panel Continue with aspirin 81 mg a day Continue with PT/OT (3) Aphasia: Status: Acute Assessment and plan: Secondary to recent ? ischemic event Continue with speech therapy noted some improvement gradually (4) Recent cerebrovascular accident: Status: Chronic Assessment and plan: With new onset right-sided weakness and aphasia Continue with aspirin (5) Essential (primary) hypertension: Status: Acute Assessment and plan: Continue with the blood pressure control (6) Chronic migraine: Status: Chronic Assessment and plan: By history, stable now. (7) Coccidioidomycosis meningitis: Status: Acute Assessment and plan: CSF findings: Consistent with cocci meningitis : Cell count, protein and glucose with serology continue with the Diflucan for life with close monitoring of liver enzymes.
[2024-03-16] VITALS (10 sets, daily range): BP systolic 124–133; BP diastolic 70–83; PULSE 70–91; RESP 18; TEMP 35.9–36.9; O2SAT 95–98; BMI 21.7; BMI 12.0
--- NOTE | 2024-03-16 01:23 | PC.NURSE ---
Juan Alberto RN transferred care to EDE Kong at approx [id number]
[2024-03-16 06:03] LABS: Basophils % (Auto) 0 % (0-2.5); Eosinophils % (Auto) 0 % (0-10); Hematocrit 35.4 % (36.0-46.0); Hemoglobin 12.3 g/dL (12.0-16.0); Immature Granulocytes % (Auto) 2 % (0-0); Immature Granulocytes Auto 0.14 Thou/mm3 (0.00-0.00); Lymphocytes # (Auto) 0.4 Thou/mm3 (1.0-4.8); Lymphocytes % (Auto) 5 % (10-50); Mean Corpuscular HGB Conc 34.7 g/dl (31.0-37.0); Mean Corpuscular Hemoglobin 32.7 pg (25.0-35.0); Mean Corpuscular Volume 94 fL (80-100); Monocytes # (Auto) 0.4 Thou/mm3 (0.0-0.8); Monocytes % (Auto) 5 % (0-12); Neutrophils # (Auto) 6.7 Thou/mm3 (1.8-7.7); Neutrophils % (Auto) 88 % (37-80); Nucleated Red Blood Cell # 0.02 Thou/mm3 (0.00-0.00); Nucleated Red Blood Cell % 0 /100 WBC (0); Platelet Count 305 Thou/mm3 (140-440); RDW Standard Deviation 50.9 fL (36.4-46.3); Red Blood Count 3.76 Miln/mm3 (4.00-5.20); White Blood Count 7.6 Thou/mm3 (3.6-11.0)
[2024-03-16 06:36] LABS: Alanine Aminotransferase 37 U/L (10-49); Albumin, Serum 3.8 gm/dL (3.5-5.0); Albumin/Globulin Ratio 1.7 (1.2-2.2); Alkaline Phosphatase 86 U/L (46-116); Anion Gap 7 (7-16); Aspartate Amino Transferase 20 U/L (0-34); BUN/Creatinine Ratio 37 Ratio (12-20); Bilirubin,Total 0.8 mg/dL (0.3-1.2); Blood Urea Nitrogen 22 mg/dL (9-23); Calcium 9.5 mg/dL (8.3-10.6); Calcium (Corrected) 9.7 mg/dL (8.5-10.1); Chloride 101 mMol/L (98-107); Creatinine (Component) 0.6 mg/dL (0.6-1.3); Estimated Creatinine Clearance 79.8 mL/min (>60); Globulin 2.2 gm/dL (2.3-3.5); Glucose 140 mg/dL (74-106); Magnesium 2.6 mg/dL (1.6-2.6); Osmolality,Calculated 277 (275-295); Potassium 3.8 mMol/L (3.4-5.1); Sodium 136 mMol/L (136-145); eGFR > 60 See Note
--- NOTE | 2024-03-16 07:14 | PD.RESPRO ---
Documentation for date of: 03/16/24 Exam Vital Signs Temp Pulse Resp BP Pulse Ox O2 Del Method 97.8 F 81 18 126/71 98 Room Air 03/16/24 04:00 03/16/24 04:00 03/16/24 04:00 03/16/24 04:00 03/16/24 04:00 03/16/24 04:00 Narrative Exam General: well developed, well nourished, laying in bed, not in acute distress, answering questions appropriately, making appropriate eye contact HEENT: Normocephalic, atraumatic, EOMI, PERRLA, moist oral mucosa, normal dentition. Cardiac: Regular rate and rhythm, normal S1/S2, no murmurs. Lungs: Clear to auscultation with no wheezings or crackles, normal respiratory effort and rate. Abdomen: Soft, nontender, nondistended, positive bowel sounds in all quadrants. No guarding or rebound tenderness. Neuro: Alert and oriented to name and date of and place. CN II- XII intact, no focal motor deficit noted, BUE/BLE motor function and sensation intact and equal. Extremities: Normal to inspection, no edema, no cyanosis Psych: Normal mood and affect. Gen: Alert, appears stated age, in no acute distress, able to respond to questions with thumbs up or down, able to speak two or three words at a time, speech still slurred but markedly improved since initial presentation HEENT: NCAT, PERRLA, EOMI, MMM, anicteric conjunctivae, right-sided facial droop present CVS: normal S1 and S2. RRR. No M/R/G. Resp: CTA B/L. No rhonchi, rales, crackles or wheezing. Abd: soft, non-tender, non-distended. BS+ in all 4 quadrants. MSK: Limited range of motion of extremities, no motion in right extremities. No edema or rash. Neuro: Speech slurred, eyes tracking individuals in room as they move, right-sided strength 0/5, left-sided strength improved from 2/5 to 4/5, right-sided facial droop present but much improved Objective Labs 03/16/24 04:44 03/16/24 04:44 Labs: Laboratory Results - last 24 hr 03/16/24 04:44 WBC 7.6 D RBC 3.76 L Hgb 12.3 Hct 35.4 L MCV 94 MCH 32.7 MCHC 34.7 RDW Std Deviation 50.9 H Plt Count 305 D Neut % (Auto) 88 H Lymph % (Auto) 5 L [place] % (Auto) 5 Eos % (Auto) 0 Baso % (Auto) 0 Neut # (Auto) 6.7 Lymph # (Auto) 0.4 L [place] # (Auto) 0.4 Eos # (Auto) 0.0 Baso # (Auto) 0.0 Immature Gran # (Auto) 0.14 H Absolute Nucleated RBC 0.02 H Immature Gran % 2 H Nucleated RBC % 0 Sodium 136 Potassium 3.8 D Chloride 101 Carbon Dioxide 28.0 Anion Gap 7 BUN 22 Creatinine 0.6 Estim Creat Clear Calc 79.8 eGFR > 60 BUN/Creatinine Ratio 37 H Glucose 140 H Calculated Osmolality 277 Calcium 9.5 Corrected Calcium 9.7 Magnesium 2.6 Total Bilirubin 0.8 AST 20 ALT 37 Alkaline Phosphatase 86 Total Protein 6.0 Albumin 3.8 Globulin 2.2 L Albumin/Globulin Ratio 1.7 Quality Measures Quality Measures VTE prophylaxis Assessment & Plan Assessment Current Active Medications: Generic Name Dose Route Start Last Admin Trade Name Freq PRN Reason Stop Dose Admin Amoxicillin 1,000 mg 03/15/24 21:00 03/15/24 21:14 Amoxicillin 250 Mg Capsule PO 03/16/24 09:01 1,000 mg BID ROGER Administration Aspirin 81 mg 03/01/24 13:30 03/15/24 09:27 Aspirin Ec 81 Mg Tabec PO 03/31/24 13:29 81 mg QDAY ROGER Administration Clarithromycin 500 mg 03/15/24 21:00 03/15/24 21:15 Clarithromycin 250 Mg Tablet PO 03/16/24 09:01 500 mg BID ROGER Administration Fluconazole 800 mg 03/10/24 13:00 03/15/24 09:25 Fluconazole 100 Mg Tablet PO 04/14/24 10:29 800 mg QDAY ROGER Administration Lisinopril 10 mg 03/02/24 11:15 03/15/24 09:24 Lisinopril 2.5 Mg Tablet PO 04/01/24 11:14 10 mg QDAY ROGER Administration Ondansetron HCl 4 mg 02/28/24 14:28 Ondansetron Inj 2 Mg/Ml Inj 2 Ml IV 03/29/24 14:27 Q4HR PRN NAUSEA OR VOMITING Pantoprazole Sodium 40 mg 03/02/24 21:00 03/15/24 21:14 Pantoprazole 40 Mg Tablet PO 03/16/24 20:59 40 mg BID ROGER Administration Prednisone 40 mg 03/16/24 09:00 Prednisone 20 Mg Tablet PO 03/16/24 09:01 X1 ONE Prednisone 30 mg 03/17/24 09:00 Prednisone 20 Mg Tablet PO 03/17/24 09:01 X1 ONE Prednisone 20 mg 03/18/24 09:00 Prednisone 20 Mg Tablet PO 03/18/24 09:01 X1 ONE Prednisone 10 mg 03/19/24 09:00 Prednisone 5 Mg Tablet PO 03/19/24 09:01 X1 ONE Sennosides 1 tab 02/29/24 16:17 Senna Tablet PO 03/30/24 16:16 QDAY PRN CONSTIPATION Protocol Plan 58-year-old female with a past medical history of hypertension, hyperlipidemia, fibromyalgia, migraines, and 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 Given patient's clinical status, daughter at bedside provided history. Father called daughter stating that patient was weak to get out of bed, then son went to see patient at 10 a.m. and patient was not responding to questions. EMS was called and patient was then brought to the ED. In ED, patient was noted to have right-sided hemiparesis, right-sided facial droop, and aphasia so stroke alert was called. Initial CT head showed concern for possible SAH versus artifact. However, patient not candidate for thrombolytics given recent stroke within last month and outside of window. Of note, patient discharged 02/03 after being admitted for gastroenteritis, found to have elevated CA-125, and was told to follow-up with Dr. Wetzel outpatient but had not been able to due to insurance issues. 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 Repeat MRI with contrast demonstrated 17mm acute infarct of left basal ganglia Patient has history of Cocci IgM and IgG CSF is clear, colorless with 72 WBC and 23 RBC, 5 mononuclear WBC and 95 polynuclear WBC, glucose low at 27 and total protein elevated at 179. CSF influenza, meningitis, strep negative pending mild protein only with no bands and cocci Venogram MRI degraded study Speech therapy recommends extensive speech therapy for months PT recommends acute rehab placement Lipid panel, TSH, NH3, B6/B9/B12, and A1c were ordered for further evaluation, all were within normal limits Repeat CT Head/Brain findings remained suspicious for SAH; however LP was negative for blood (low RBC count) and was clear Protein C/S and Factor V Leiden negative EEG shows multifocal slowing and spike/dome appearance in frontal, central and temporal areas Plan: 5 days of oral steroid tapering commenced Neurologist Dr. Santiago consulted, appreciate recs Follow-up on VGKC and LGI1 antibodies outpatient with neurology ID consulted, Dr. Hernandez following Continue aspirin 81mg PO qd Continue Fluconazole 800mg PO HS for confirmed coccidioides Neurochecks q4h DVT prophylaxis Head of bed 30 degrees Euglycemia and avoid hyperthermia Holding off on Plavix at this time per teleneurology's recommendations, continue aspirin monotherapy Teleneurology recommending to continue holding statin as patient's LDL is low and cholesterol an unlikely mechanism for current presentation Anticipate discharge Tuesday #Euvolemic Hyponatremia-resolved Patient slowly developing hyponatremia since admission, lowering approximately 1-2 mEq Na per day. On morning of 03/06, Na 128, and on recheck at 2PM, 126. Patient is likely euvolemic. Initially suspected hyponatremia to be due to poor oral intake, but patient has been tolerating her cardiac diet well and working with speech therapy daily. Plan: Nephrology Dr. Paz consulted, appreciate recommendations Recommendations are to continue monitoring sodium level daily Will recheck in AM #H. 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 Pompa was consulted time, completed EGD and biopsy Pathology confirmed H. pylori infection Patient's family states that she was never treated for H. pylori after discharge and never followed up outpatient with PCP or Dr. Peña Wetzel was also consulted due to Elevated CA 125 and CA 19?9 pending Plan: Completed triple therapy(2-week course) on 03/15 Follow-up with oncologist Dr. Wetzel outpatient for further evaluation of possible GI malignancy as seen by elevated cancer markers in serum #10mm Pulmonary Nodule 10mm pulmonary nodule right lower lobe as seen on CT chest/abdomen/pelvis during hospitalization in mid January for GI symptoms Radiology recommended at that time for 6-month follow-up CT Plan: Follow up outpatient for repeat imaging #Hypertension #Hyperlipidemia #Fibromyalgia #Migraines All chronic conditions present prior to admission Plan: Continue home dose of lisinopril 10mg PO qd Holding statin at this time as fluconazole has a known adverse effect of significantly increasing levels of serum statin Continue to monitor Health Maintenance: Disposition: Med surg; likely d/c 03/19 to SNF Diet: Cardiac diet GI prophylaxis: None indicated DVT prophylaxis: Lovenox 40mg qd Code: Full code Case disclosed with Attending Dr. Card
[2024-03-16] MEDS: FLUCONAZOLE 100 MG TABLET 800 MG PO (10:12)
[2024-03-16] MEDS: ASPIRIN EC 81 MG TABEC PO (10:12)
[2024-03-16] MEDS: AMOXICILLIN 250 MG CAPSULE 1000 MG PO (10:12)
[2024-03-16] MEDS: Lisinopril 2.5 MG TABLET 10 MG PO (10:12)
[2024-03-16] MEDS: PANTOPRAZOLE 40 MG TABLET PO (10:13)
[2024-03-16] MEDS: CLARITHROMYCIN 250 MG TABLET 500 MG PO (10:13)
[2024-03-16] MEDS: predniSONE 20 MG TABLET 40 MG PO (10:26)
--- NOTE | 2024-03-16 10:30 | ESPR_ITS ---
Documentation for date of: 03/16/24 Subjective Subjective Interval history: 03/16/2024: No acute overnight events. Patient's 14 day course of H.Pylori tx was completed today, patient will receive 40mg of Prednisone today and start decreasing by 10 each day to taper steroids per neuro recs. 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 Patient continues to work with PT and family notices daily improvement. Exam Vital Signs Temp Pulse Resp BP Pulse Ox O2 Del Method 98.6 F 77 18 136/75 H 96 Room Air 03/17/24 04:00 03/17/24 04:00 03/17/24 04:00 03/17/24 04:00 03/17/24 04:00 03/17/24 04:00 Narrative Exam Gen: Alert, appears stated age, in no acute distress, able to respond to questions with thumbs up or down, able to speak two or three words at a time, speech still slurred but markedly improved since initial presentation HEENT: NCAT, PERRLA, EOMI, MMM, anicteric conjunctivae, right-sided facial droop present CVS: normal S1 and S2. RRR. No M/R/G. Resp: CTA B/L. No rhonchi, rales, crackles or wheezing. Abd: soft, non-tender, non-distended. BS+ in all 4 quadrants. MSK: Limited range of motion of extremities, no motion in right extremities. No edema or rash. Neuro: Speech slurred, eyes tracking individuals in room as they move, right- sided strength 0/5, left-sided strength improved from 2/5 to 4/5, right-sided facial droop present but much improved Objective Labs 03/17/24 04:47 03/17/24 04:47 Labs: Laboratory Results - last 24 hr 03/17/24 04:47 WBC 6.9 RBC 3.85 L Hgb 12.4 Hct 35.8 L MCV 93 MCH 32.2 MCHC 34.6 RDW Std Deviation 50.7 H Plt Count 358 D Neut % (Auto) 63 Lymph % (Auto) 24 [place] % (Auto) 10 Eos % (Auto) 0 Baso % (Auto) 0 Neut # (Auto) 4.3 Lymph # (Auto) 1.7 [place] # (Auto) 0.7 Eos # (Auto) 0.0 Baso # (Auto) 0.0 Immature Gran # (Auto) 0.22 H Absolute Nucleated RBC 0.05 H Immature Gran % 3 H Nucleated RBC % 1 H Sodium 135 L Potassium 3.8 Chloride 100 Carbon Dioxide 28.8 Anion Gap 6 L BUN 20 Creatinine 0.5 L Estim Creat Clear Calc 95.8 eGFR > 60 BUN/Creatinine Ratio 40 H Glucose 98 Calculated Osmolality 272 L Calcium 9.4 Corrected Calcium 9.7 Magnesium 2.3 Total Bilirubin 0.8 AST 28 ALT 50 H Alkaline Phosphatase 77 Total Protein 5.7 Albumin 3.6 Globulin 2.1 L Albumin/Globulin Ratio 1.7 Quality Measures Quality Measures VTE prophylaxis and stroke Suspected type of Stroke: Acute Ischemic Tenecteplase given: Reason(s) Tenecteplase not given: Outside the time window not given Rehab services: PT evaluation ordered VTE Prophylaxis: pharmaceutical Antithrombotic by day 2:: ordered Statin ordered: <75 y/o high intensity dose Anticoagulation ordered for A-fib or flutter (current or hx): not indicated Assessment & Plan Assessment Current Active Medications: Generic Name Dose Route Start Last Admin Trade Name Freq PRN Reason Stop Dose Admin Aspirin 81 mg 03/01/24 13:30 03/16/24 10:12 Aspirin Ec 81 Mg Tabec PO 03/31/24 13:29 81 mg QDAY ROGER Administration Fluconazole 800 mg 03/10/24 13:00 03/16/24 10:12 Fluconazole 100 Mg Tablet PO 04/14/24 10:29 800 mg QDAY ROGER Administration Lisinopril 10 mg 03/02/24 11:15 03/16/24 10:12 Lisinopril 2.5 Mg Tablet PO 04/01/24 11:14 10 mg QDAY ROGER Administration Ondansetron HCl 4 mg 02/28/24 14:28 Ondansetron Inj 2 Mg/Ml Inj 2 Ml IV 03/29/24 14:27 Q4HR PRN NAUSEA OR VOMITING Prednisone 30 mg 03/17/24 09:00 Prednisone 20 Mg Tablet PO 03/17/24 09:01 X1 ONE Prednisone 20 mg 03/18/24 09:00 Prednisone 20 Mg Tablet PO 03/18/24 09:01 X1 ONE Prednisone 10 mg 03/19/24 09:00 Prednisone 5 Mg Tablet PO 03/19/24 09:01 X1 ONE Sennosides 1 tab 02/29/24 16:17 Senna Tablet PO 03/30/24 16:16 QDAY PRN CONSTIPATION Protocol Plan 58-year-old female with a past medical history of hypertension, hyperlipidemia, fibromyalgia, migraines, and 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 Given patient's clinical status, daughter at bedside provided history. Father called daughter stating that patient was weak to get out of bed, then son went to see patient at 10 a.m. and patient was not responding to questions. EMS was called and patient was then brought to the ED. In ED, patient was noted to have right-sided hemiparesis, right-sided facial droop, and aphasia so stroke alert was called. Initial CT head showed concern for possible SAH versus artifact. However, patient not candidate for thrombolytics given recent stroke within last month and outside of window. Of note, patient discharged 02/03 after being admitted for gastroenteritis, found to have elevated CA-125, and was told to follow-up with Dr. Wetzel outpatient but had not been able to due to insurance issues. 03/16/2024: No acute overnight events. Patient's 14 day course of H.Pylori tx was completed today, patient will receive 40mg of Prednisone today and start decreasing by 10 each day to taper steroids per neuro recs. 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 Patient continues to work with PT and family notices daily improvement. 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 Repeat MRI with contrast demonstrated 17mm acute infarct of left basal ganglia Patient has history of Cocci IgM and IgG CSF is clear, colorless with 72 WBC and 23 RBC, 5 mononuclear WBC and 95 polynuclear WBC, glucose low at 27 and total protein elevated at 179. CSF influenza, meningitis, strep negative pending mild protein only with no bands and cocci Venogram MRI degraded study Speech therapy recommends extensive speech therapy for months PT recommends acute rehab placement Lipid panel, TSH, NH3, B6/B9/B12, and A1c were ordered for further evaluation, all were within normal limits Repeat CT Head/Brain findings remained suspicious for SAH; however LP was negative for blood (low RBC count) and was clear Protein C/S and Factor V Leiden negative EEG shows multifocal slowing and spike/dome appearance in frontal, central and temporal areas Plan: 5 days of oral steroid tapering commenced Neurologist Dr. Santiago consulted, appreciate recs Follow-up on VGKC and LGI1 antibodies outpatient with neurology ID consulted, Dr. Hernandez following Continue aspirin 81mg PO qd Continue Fluconazole 800mg PO HS for confirmed coccidioides Neurochecks q4h DVT prophylaxis Head of bed 30 degrees Euglycemia and avoid hyperthermia Holding off on Plavix at this time per teleneurology's recommendations, continue aspirin monotherapy Teleneurology recommending to continue holding statin as patient's LDL is low and cholesterol an unlikely mechanism for current presentation Anticipate discharge Tuesday #Euvolemic Hyponatremia-resolved Patient slowly developing hyponatremia since admission, lowering approximately 1-2 mEq Na per day. On morning of 03/06, Na 128, and on recheck at 2PM, 126. Patient is likely euvolemic. Initially suspected hyponatremia to be due to poor oral intake, but patient has been tolerating her cardiac diet well and working with speech therapy daily. Plan: Nephrology Dr. Paz consulted, appreciate recommendations Recommendations are to continue monitoring sodium level daily Will recheck in AM #H. 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 Pompa was consulted time, completed EGD and biopsy Pathology confirmed H. pylori infection Patient's family states that she was never treated for H. pylori after discharge and never followed up outpatient with PCP or Dr. Peña Wetzel was also consulted due to Elevated CA 125 and CA 19?9 pending Plan: Completed triple therapy(2-week course) on 03/15 Follow-up with oncologist Dr. Wetzel outpatient for further evaluation of possible GI malignancy as seen by elevated cancer markers in serum #10mm Pulmonary Nodule 10mm pulmonary nodule right lower lobe as seen on CT chest/abdomen/pelvis during hospitalization in mid January for GI symptoms Radiology recommended at that time for 6-month follow-up CT Plan: Follow up outpatient for repeat imaging #Hypertension #Hyperlipidemia #Fibromyalgia #Migraines All chronic conditions present prior to admission Plan: Continue home dose of lisinopril 10mg PO qd Holding statin at this time as fluconazole has a known adverse effect of significantly increasing levels of serum statin Continue to monitor Health Maintenance: Disposition: Med surg; likely d/c 03/19 to SNF Diet: Cardiac diet GI prophylaxis: None indicated DVT prophylaxis: Lovenox 40mg qd Code: Full code Plan of care discussed with Attending Dr. Card. Prince Del Rosario, PGY-3 Attending Provider Attestation/Addendum I have discussed and was present for the essential components of the history, physical examination, diagnosis, and treatment plan with the resident. I agree with the patient's care as documented by the resident and amended herein by me. Kedar Card DO. Although this document has been carefully reviewed, there may still be some phonetic and other typographical errors. These errors are purely grammatical due to imperfections in the software program and should not be construed in any way to compromise the substance of the patient's medical care during this visit.
--- NOTE | 2024-03-16 10:48 | PC.SS ---
Follow up note: SS spoke to Charline @ [facility] and they now have authorization. SS updated daughter, Teresita @ [phone] and she is agreeable to d/c today. Charline @ [facility] prefers d/c at 5p.m. for bed availability. Updated physician. D/c orders in.
--- NOTE | 2024-03-16 15:49 | PC.SS ---
SS received call from Charline at [facility] who states bedside nurse from [facility] was trying to give report but they are still waiting for insurance authorization. Charline at [facility] states insurance authorization is still pending and they are unable to accept pt until authorization is provided. SS called Landy from [facility] who states transportation was setup for 5pm to [facility]. SS has called and cancelled transportation.
--- NOTE | 2024-03-16 16:09 | PC.SS ---
SS informed patients daughter, Teresita that authorization was not obtained and at the time auth is still pending. Teresita verbalized understanding.
--- NOTE | 2024-03-16 23:34 | PD.VPROG1 ---
Telemedicine visit statement This visit was conducted with the use of phone was obtained on 03/16/24 Documentation for date of: 03/16/24 Subjective Subjective Interval history: Patient is in medtelemetry with family. no new complaints noted. Involuntary movements in the face and left UE have been resolved, She denies any headache. Able to communicate much better, right dense hemiplegia unchanged. Virtual exam Vital Signs Temp Pulse Resp BP Pulse Ox O2 Del Method 98.4 F 91 18 130/73 95 Room Air 03/16/24 20:00 03/16/24 20:00 03/16/24 20:00 03/16/24 20:00 03/16/24 20:00 03/16/24 20:00 Objective Labs 03/17/24 04:47 03/17/24 04:47 Labs: Laboratory Results - last 24 hr 03/16/24 04:44 WBC 7.6 D RBC 3.76 L Hgb 12.3 Hct 35.4 L MCV 94 MCH 32.7 MCHC 34.7 RDW Std Deviation 50.9 H Plt Count 305 D Neut % (Auto) 88 H Lymph % (Auto) 5 L [place] % (Auto) 5 Eos % (Auto) 0 Baso % (Auto) 0 Neut # (Auto) 6.7 Lymph # (Auto) 0.4 L [place] # (Auto) 0.4 Eos # (Auto) 0.0 Baso # (Auto) 0.0 Immature Gran # (Auto) 0.14 H Absolute Nucleated RBC 0.02 H Immature Gran % 2 H Nucleated RBC % 0 Sodium 136 Potassium 3.8 D Chloride 101 Carbon Dioxide 28.0 Anion Gap 7 BUN 22 Creatinine 0.6 Estim Creat Clear Calc 79.8 eGFR > 60 BUN/Creatinine Ratio 37 H Glucose 140 H Calculated Osmolality 277 Calcium 9.5 Corrected Calcium 9.7 Magnesium 2.6 Total Bilirubin 0.8 AST 20 ALT 37 Alkaline Phosphatase 86 Total Protein 6.0 Albumin 3.8 Globulin 2.2 L Albumin/Globulin Ratio 1.7 Assessment & Plan Assessment (1) Abnormal involuntary movements: Resolved 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 Hyponatremia is commonly associated with it. csf showed lymphocytic pleocytosis and elevated protein and low glucose still. FU with serum and CSF for autoimmune encephalitis panel: specifically: VGKC and LGI1 ab she completed 5 days of IV steroids. FU with repeat EEG She is on oral steroids : Weaning schedule (2) Acute right hemiparesis: MRI brain showed multiple periventricular white matter changes suspicious for demyelination. Along with acute infarction involving the left basal ganglia. MRV: Limited study from motion Echocardiogram: Normal study CSF for MS panel: only oligoclonal bands positive. igG index, IgG synthesis rate and myelin Basic protein: all are wnl Continue with aspirin 81 mg a day Continue with PT/OT Needs placement in acute rehab for continuing physical therapy. (3) Aphasia: Continue to show improvement gradually Secondary to recent ? ischemic event Continue with speech therapy (4) Recent cerebrovascular accident: improving language deficit With new onset right-sided weakness and aphasia Continue with aspirin and PT (5) Essential (primary) hypertension: Continue with the blood pressure control (6) Chronic migraine: By history, stable now. 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
[2024-03-17] VITALS (7 sets, daily range): BP systolic 96–137; BP diastolic 62–75; PULSE 60–87; RESP 16–18; TEMP 36.1–37.1; O2SAT 96–100; BMI 21.7; BMI 12.0
[2024-03-17 06:46] LABS: Alanine Aminotransferase 50 U/L (10-49); Albumin, Serum 3.6 gm/dL (3.5-5.0); Albumin/Globulin Ratio 1.7 (1.2-2.2); Alkaline Phosphatase 77 U/L (46-116); Anion Gap 6 (7-16); Aspartate Amino Transferase 28 U/L (0-34); BUN/Creatinine Ratio 40 Ratio (12-20); Bilirubin,Total 0.8 mg/dL (0.3-1.2); Blood Urea Nitrogen 20 mg/dL (9-23); Calcium 9.4 mg/dL (8.3-10.6); Calcium (Corrected) 9.7 mg/dL (8.5-10.1); Carbon Dioxide 28.8 mMol/L (20.0-31.0); Chloride 100 mMol/L (98-107); Creatinine (Component) 0.5 mg/dL (0.6-1.3); Estimated Creatinine Clearance 95.8 mL/min (>60); Globulin 2.1 gm/dL (2.3-3.5); Glucose 98 mg/dL (74-106); Magnesium 2.3 mg/dL (1.6-2.6); Osmolality,Calculated 272 (275-295); Potassium 3.8 mMol/L (3.4-5.1); Sodium 135 mMol/L (136-145); Total Protein 5.7 gm/dL (5.7-8.2); eGFR > 60 See Note
[2024-03-17 06:56] LABS: Basophils % (Auto) 0 % (0-2.5); Eosinophils % (Auto) 0 % (0-10); Hematocrit 35.8 % (36.0-46.0); Hemoglobin 12.4 g/dL (12.0-16.0); Immature Granulocytes % (Auto) 3 % (0-0); Immature Granulocytes Auto 0.22 Thou/mm3 (0.00-0.00); Lymphocytes # (Auto) 1.7 Thou/mm3 (1.0-4.8); Lymphocytes % (Auto) 24 % (10-50); Mean Corpuscular HGB Conc 34.6 g/dl (31.0-37.0); Mean Corpuscular Hemoglobin 32.2 pg (25.0-35.0); Mean Corpuscular Volume 93 fL (80-100); Monocytes # (Auto) 0.7 Thou/mm3 (0.0-0.8); Monocytes % (Auto) 10 % (0-12); Neutrophils # (Auto) 4.3 Thou/mm3 (1.8-7.7); Neutrophils % (Auto) 63 % (37-80); Nucleated Red Blood Cell # 0.05 Thou/mm3 (0.00-0.00); Nucleated Red Blood Cell % 1 /100 WBC (0); Platelet Count 358 Thou/mm3 (140-440); RDW Standard Deviation 50.7 fL (36.4-46.3); Red Blood Count 3.85 Miln/mm3 (4.00-5.20); White Blood Count 6.9 Thou/mm3 (3.6-11.0)
--- NOTE | 2024-03-17 07:00 | ESDS_ITS ---
<Statement entered by Dahiana Gonzalez DO - 03/20/24 22:26> I, Dahiana Gonzalez DO, attest that I was physically present for the bennett portions of the service and evaluated the patient with the resident and I reviewed and discussed the case with the resident and agree with the resident's findings and plans of care as documented above <Statement entered by Afshin Camacho MD - 03/19/24 17:06> Patient was examined with the team including attending physician. Note reviewed, I agree with the discharge plan as documented. - Afshin Camacho MD, PGY 2 Planned Discharge Date 03/17/24 DS: Providers Provider Date of admission: 02/28/24 20:28 Primary care physician: Physician No Primary/Family Admitting Provider: Raimundo Joshi MD Attending Provider on Admission: Adryan Card DO Consults: 02/28/24 14:28 Consult to Neurology / Tele-Neurology Routine Comment: Consulting Provider: Varun Santiago 02/29/24 00:28 Referral Infection Control Routine Comment: Reason for Infection Control Referral: Readmitted within 30 days Referral Registered Dietitian Routine Comment: 02/29/24 08:14 Consult to Infectious Diseases Routine Comment: meningitis vs cocci meningitis vs GBS Consulting Provider: Todd Hernandez 02/29/24 10:09 Referral Speech Therapy Routine Comment: 02/29/24 11:08 Referral Physical Therapy Stat Comment: Physician Instructions: 03/06/24 16:31 Consult to Nephrology Routine Comment: Hyponatremia Consulting Provider: Cl Paz 03/16/24 02:26 Referral Nutritional Services Routine Comment: Referral Wound Care Routine Comment: Attending Provider on DC: Prince Del Rosario MD Discharging Provider: Prince Del Rosario MD DS: Diagnosis Problem List Completed Was Problem List Reviewed/Reconciled?: Yes Hospital Course Hospital Course Hospital course: 58-year-old female with a past medical history of hypertension, hyperlipidemia, fibromyalgia, migraines, and 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 Given patient's clinical status, daughter at bedside provided history. Father called daughter stating that patient was weak to get out of bed, then son went to see patient at 10 a.m. and patient was not responding to questions. EMS was called and patient was then brought to the ED. In ED, patient was noted to have right-sided hemiparesis, right-sided facial droop, and aphasia so stroke alert was called. Initial CT head showed concern for possible SAH versus artifact. However, patient not candidate for thrombolytics given recent stroke within last month and outside of window. Of note, patient discharged 02/03 after being admitted for gastroenteritis, found to have elevated CA-125, and was told to follow-up with Dr. Wetzel outpatient but had not been able to due to insurance issues. 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 Repeat MRI with contrast demonstrated 17mm acute infarct of left basal ganglia Patient has history of Cocci IgM and IgG CSF is clear, colorless with 72 WBC and 23 RBC, 5 mononuclear WBC and 95 polynuclear WBC, glucose low at 27 and total protein elevated at 179. CSF influenza, meningitis, strep negative pending mild protein only with no bands and cocci Venogram MRI degraded study Speech therapy recommends extensive speech therapy for months PT recommends acute rehab placement Lipid panel, TSH, NH3, B6/B9/B12, and A1c were ordered for further evaluation, all were within normal limits Repeat CT Head/Brain findings remained suspicious for SAH; however LP was negative for blood (low RBC count) and was clear Protein C/S and Factor V Leiden negative EEG shows multifocal slowing and spike/dome appearance in frontal, central and temporal areas Plan: 5 days of oral steroid tapering commenced Neurologist Dr. Santiago consulted, appreciate recs Follow-up on VGKC and LGI1 antibodies outpatient with neurology ID consulted, Dr. Hernandez following Continue aspirin 81mg PO qd Continue Fluconazole 800mg PO HS for confirmed coccidioides Neurochecks q4h DVT prophylaxis Head of bed 30 degrees Euglycemia and avoid hyperthermia Holding off on Plavix at this time per teleneurology's recommendations, continue aspirin monotherapy Teleneurology recommending to continue holding statin as patient's LDL is low and cholesterol an unlikely mechanism for current presentation Anticipate discharge Tuesday #Euvolemic Hyponatremia-resolved Patient slowly developing hyponatremia since admission, lowering approximately 1-2 mEq Na per day. On morning of 03/06, Na 128, and on recheck at 2PM, 126. Patient is likely euvolemic. Initially suspected hyponatremia to be due to poor oral intake, but patient has been tolerating her cardiac diet well and working with speech therapy daily. Plan: Nephrology Dr. Paz consulted, appreciate recommendations Recommendations are to continue monitoring sodium level daily Will recheck in AM #H. 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 Pompa was consulted time, completed EGD and biopsy Pathology confirmed H. pylori infection Patient's family states that she was never treated for H. pylori after discharge and never followed up outpatient with PCP or Dr. Peña Wetzel was also consulted due to Elevated CA 125 and CA 19?9 pending Plan: Completed triple therapy(2-week course) on 03/15 Follow-up with oncologist Dr. Wetzel outpatient for further evaluation of possible GI malignancy as seen by elevated cancer markers in serum #10mm Pulmonary Nodule 10mm pulmonary nodule right lower lobe as seen on CT chest/abdomen/pelvis during hospitalization in mid January for GI symptoms Radiology recommended at that time for 6-month follow-up CT Plan: Follow up outpatient for repeat imaging #Hypertension #Hyperlipidemia #Fibromyalgia #Migraines 58 year old female with a significant past medical history of hypertension, hyperlipidemia, fibromyalgia, migraines, CVA approximately 20 years ago resenting to the ED with aphasia and right-sided deficits. Initial CT concerning for possible subarachnoid hemorrhage, patient not given thrombolytics as she was outside of the window, recent discharge on 02/03 for gastroenteritis however had apparent elevation in CA125 and was instructed to follow-up with Dr. Wetzel on an outpatient basis. Interval history: 03/13: No acute events overnight. Vital signs stable, patient afebrile overnight. Significant labs include a slightly elevated WBC at 11.3, BMP largely unremarkable. Blood glucose well-controlled previous day. EEG results demonstrated abnormal paroxysmal multifocal slowing and spike and wave activity in both the frontal central and temporal areas however significant movement artifact was noted on study. 03/14: Vital signs stable, patient afebrile overnight no acute events overnight. 03/15. Vital signs stable, patient afebrile overnight, patient doing very well today, no subjective complaints. Significant labs: CBC largely unremarkable, potassium low at 3.2. ASSESSMENT/PLAN: #Autoimmune encephalitis #Disseminated coccidiomycosis, Coccidioides meningitis #Left basal ganglia CVA #History of CVA, right cerebellar hemisphere ?Neurology consulted, appreciate recommendations ?Infectious disease consulted, appreciate recommendations ?Transition to p.o. steroids today for a 5-day taper, starting at 50 mg prednisone ?Will continue aspirin 81 mg daily ?Will continue fluconazole 800 mg p.o. nightly ?Stroke precautions: Neurochecks every 4 hours, DVT prophylaxis, HOB 30 degrees, maintain euglycemia ?Coagulation studies pending ?Repeat EEG performed, read pending ? Replete electrolytes as needed #H. pylori infection: Will continue triple therapy until 03/16 #Pulmonary nodule, 1 cm will follow-up in 6 months with repeat imaging or based on on-call neurology recommendations # Mild leukocytosis?resolved Chronic problems: #Hypertension #Hyperlipidemia #Fibromyalgia #Migraines Take medications as prescribed. Continue Fluconazole 800mg daily for the rest of your life and continue to monitor liver enzymes. Hold Atorvastatin to reduce possible liver injury. Continue to work with physical therapy. Follow up with PCP within 2 weeks of discharge. Follow up with Neurology- Dr. Santiago within 2 weeks of discharge. Return to ED if symptoms recur or worsen. Status at Discharge Functional status at discharge: wheelchair bound Time Spent with Patient Time attestation: Total time spent providing and/or coordinating discharge services: 60 minutes. Quality: Stroke Pt Provided Written Stroke Discharge Instructions: No Exam Vital Signs Temp Pulse Resp BP Pulse Ox O2 Del Method 96.9 F 85 18 133/83 H 97 Room Air 03/16/24 07:36 03/16/24 10:12 03/16/24 07:36 03/16/24 10:12 03/16/24 07:36 03/16/24 07:36 Narrative Exam Gen: Alert, appears stated age, in no acute distress, able to respond to questions with thumbs up or down, able to speak two or three words at a time, speech still slurred but markedly improved since initial presentation HEENT: NCAT, PERRLA, EOMI, MMM, anicteric conjunctivae, right-sided facial droop present CVS: normal S1 and S2. RRR. No M/R/G. Resp: CTA B/L. No rhonchi, rales, crackles or wheezing. Abd: soft, non-tender, non-distended. BS+ in all 4 quadrants. MSK: Limited range of motion of extremities, no motion in right extremities. No edema or rash. Neuro: Speech slurred, eyes tracking individuals in room as they move, right- sided strength 0/5, left-sided strength improved from 2/5 to 4/5, right-sided facial droop present but much improved Discharge Plan Plan Patient Disposition: Xfer Skilled Nsg Fac (SNF) Disposition Comment: [facility] Patient condition on transfer: Stable Prescriptions/Referrals Prescriptions/Med Rec: New sennosides [Senna Lax] 8.6 mg Tablet 8.6 mg PO QDAY PRN (Reason: Constipation) 30 Days Qty: 30 0RF lisinopril 10 mg tablet 10 mg PO QDAY 30 Days Qty: 30 0RF fluconazole 200 mg tablet 800 mg PO QDAY 30 Days Qty: 120 12RF Continued acetaminophen 500 mg tablet 500 mg PO [id number] PRN (Reason: Pain) meclizine 25 mg tablet 25 mg PO Q12H PRN (Reason: Dizziness) aspirin 81 mg tablet,delayed release (DR/EC) 81 mg PO DAILY Patient Comments: TOME 1 TABLETA POR V A ORAL TODOS LOS D FOR 90 DAYS Discontinued atorvastatin 80 mg tablet 80 mg PO HS Patient Comments: TOME 1 TABLETA POR V A ORAL TODOS LOS D FOR 90 DAYS No Action duloxetine 30 mg capsule,delayed release(DR/EC) 30 mg PO QDAY clopidogrel [Plavix] 75 mg Tablet 75 mg PO QDAY Referrals: Todd Hernandez MD [Physician] - No Primary/Family,Physician [Primary Care Provider] - Varun Santiago MD [Physician] - Patient/Caregiver Discharge Instructions Other Discharge Activity Instructions:: Take medications as prescribed. Continue Fluconazole 800mg daily for the rest of your life and continue to monit or liver enzymes. Follow with fluconazole Hold Atorvastatin to reduce possible liver injury. Continue to work with physical therapy. Follow up with PCP within 2 weeks of discharge. Follow up with Neurology- Dr. Santiago within 2 weeks of discharge. Return to ED if symptoms recur or worsen. Education Materials: Discharge Instructions for Stroke Print Language: Tamazight Stand Alone Forms: Sarah Award Info., Patient Portal Info Letter Discharge Order Discharge Orders: Discharge (Routine); Ordered 03/16/24 Ordered By: Prince Del Rosario Quality Discharge Quality Measures VTE prophylaxis and stroke Statin ordered >75 y/o:moderate or high intensity dose on DC: n/a Statin ordered <75 y/o: high intensity dose on DC: yes Statin not ordered due to:: not indicated Anticoagulation ordered for A-fib or flutter (current or hx): not indicated Antithrombotic ordered on DC: ordered
[2024-03-17] MEDS: predniSONE 20 MG TABLET 30 MG PO (09:21)
[2024-03-17] MEDS: FLUCONAZOLE 100 MG TABLET 800 MG PO (09:21)
[2024-03-17] MEDS: Lisinopril 2.5 MG TABLET 10 MG PO (09:21)
[2024-03-17] MEDS: ASPIRIN EC 81 MG TABEC PO (09:22)
--- NOTE | 2024-03-17 12:15 | ESPR_ITS ---
Documentation for date of: 03/17/24 Subjective Subjective Interval history: 03/16/2024: Patient was seen and examined by bedside with present in room during exam, no acute overnight events reported, vitals stable with BP mildly elevated at 140/75, no change in CBC/CMP, patient on Prednisone taper and received 30mg per neuro taper recs, continues to work with PT daily. 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 Exam Vital Signs Temp Pulse Resp BP Pulse Ox O2 Del Method 98.7 F 78 16 135/75 H 97 Room Air 03/17/24 11:41 03/17/24 11:41 03/17/24 11:41 03/17/24 11:41 03/17/24 11:41 03/17/24 11:41 Narrative Exam Gen: Alert, appears stated age, in no acute distress, able to respond to questions with thumbs up or down, able to speak two or three words at a time, speech still slurred but markedly improved since initial presentation HEENT: NCAT, PERRLA, EOMI, MMM, anicteric conjunctivae, right-sided facial droop present CVS: normal S1 and S2. RRR. No M/R/G. Resp: CTA B/L. No rhonchi, rales, crackles or wheezing. Abd: soft, non-tender, non-distended. BS+ in all 4 quadrants. MSK: Limited range of motion of extremities, no motion in right extremities. No edema or rash. Neuro: Speech slurred, eyes tracking individuals in room as they move, right- sided strength 0/5, left-sided strength improved from 2/5 to 4/5, right-sided facial droop present but much improved Objective Labs 03/17/24 04:47 03/17/24 04:47 Labs: Laboratory Results - last 24 hr 03/17/24 04:47 WBC 6.9 RBC 3.85 L Hgb 12.4 Hct 35.8 L MCV 93 MCH 32.2 MCHC 34.6 RDW Std Deviation 50.7 H Plt Count 358 D Neut % (Auto) 63 Lymph % (Auto) 24 [place] % (Auto) 10 Eos % (Auto) 0 Baso % (Auto) 0 Neut # (Auto) 4.3 Lymph # (Auto) 1.7 [place] # (Auto) 0.7 Eos # (Auto) 0.0 Baso # (Auto) 0.0 Immature Gran # (Auto) 0.22 H Absolute Nucleated RBC 0.05 H Immature Gran % 3 H Nucleated RBC % 1 H Sodium 135 L Potassium 3.8 Chloride 100 Carbon Dioxide 28.8 Anion Gap 6 L BUN 20 Creatinine 0.5 L Estim Creat Clear Calc 95.8 eGFR > 60 BUN/Creatinine Ratio 40 H Glucose 98 Calculated Osmolality 272 L Calcium 9.4 Corrected Calcium 9.7 Magnesium 2.3 Total Bilirubin 0.8 AST 28 ALT 50 H Alkaline Phosphatase 77 Total Protein 5.7 Albumin 3.6 Globulin 2.1 L Albumin/Globulin Ratio 1.7 Quality Measures Quality Measures VTE prophylaxis and stroke Suspected type of Stroke: Acute Ischemic Tenecteplase given: Reason(s) Tenecteplase not given: Outside the time window not given Rehab services: PT evaluation ordered VTE Prophylaxis: pharmaceutical Antithrombotic by day 2:: ordered Statin ordered: <75 y/o high intensity dose Anticoagulation ordered for A-fib or flutter (current or hx): not indicated Assessment & Plan Assessment Current Active Medications: Generic Name Dose Route Start Last Admin Trade Name Freq PRN Reason Stop Dose Admin Aspirin 81 mg 03/01/24 13:30 03/17/24 09:22 Aspirin Ec 81 Mg Tabec PO 03/31/24 13:29 81 mg QDAY ROGER Administration Fluconazole 800 mg 03/10/24 13:00 03/17/24 09:21 Fluconazole 100 Mg Tablet PO 04/14/24 10:29 800 mg QDAY ROGER Administration Lisinopril 10 mg 03/02/24 11:15 03/17/24 09:21 Lisinopril 2.5 Mg Tablet PO 04/01/24 11:14 10 mg QDAY ROGER Administration Ondansetron HCl 4 mg 02/28/24 14:28 Ondansetron Inj 2 Mg/Ml Inj 2 Ml IV 03/29/24 14:27 Q4HR PRN NAUSEA OR VOMITING Prednisone 20 mg 03/18/24 09:00 Prednisone 20 Mg Tablet PO 03/18/24 09:01 X1 ONE Prednisone 10 mg 03/19/24 09:00 Prednisone 5 Mg Tablet PO 03/19/24 09:01 X1 ONE Sennosides 1 tab 02/29/24 16:17 Senna Tablet PO 03/30/24 16:16 QDAY PRN CONSTIPATION Protocol Plan 58-year-old female with a past medical history of hypertension, hyperlipidemia, fibromyalgia, migraines, and 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 Given patient's clinical status, daughter at bedside provided history. Father called daughter stating that patient was weak to get out of bed, then son went to see patient at 10 a.m. and patient was not responding to questions. EMS was called and patient was then brought to the ED. In ED, patient was noted to have right-sided hemiparesis, right-sided facial droop, and aphasia so stroke alert was called. Initial CT head showed concern for possible SAH versus artifact. However, patient not candidate for thrombolytics given recent stroke within last month and outside of window. Of note, patient discharged 02/03 after being admitted for gastroenteritis, found to have elevated CA-125, and was told to follow-up with Dr. Wetzel outpatient but had not been able to due to insurance issues. 03/17/2024: Patient was seen and examined by bedside with present in room during exam, no acute overnight events reported, vitals stable with BP mildly elevated at 140/75, no change in CBC/CMP, patient on Prednisone taper and received 30mg per neuro taper recs, continues to work with PT daily. 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 Repeat MRI with contrast demonstrated 17mm acute infarct of left basal ganglia Patient has history of Cocci IgM and IgG CSF is clear, colorless with 72 WBC and 23 RBC, 5 mononuclear WBC and 95 polynuclear WBC, glucose low at 27 and total protein elevated at 179. CSF influenza, meningitis, strep negative pending mild protein only with no bands and cocci Venogram MRI degraded study Speech therapy recommends extensive speech therapy for months PT recommends acute rehab placement Lipid panel, TSH, NH3, B6/B9/B12, and A1c were ordered for further evaluation, all were within normal limits Repeat CT Head/Brain findings remained suspicious for SAH; however LP was negative for blood (low RBC count) and was clear Protein C/S and Factor V Leiden negative EEG shows multifocal slowing and spike/dome appearance in frontal, central and temporal areas Plan: 5 days of oral steroid tapering commenced Neurologist Dr. Santiago consulted, appreciate recs Follow-up on VGKC and LGI1 antibodies outpatient with neurology ID consulted, Dr. Hernandez following Continue aspirin 81mg PO qd Continue Fluconazole 800mg PO HS for confirmed coccidioides Neurochecks q4h DVT prophylaxis Head of bed 30 degrees Euglycemia and avoid hyperthermia Holding off on Plavix at this time per teleneurology's recommendations, continue aspirin monotherapy Teleneurology recommending to continue holding statin as patient's LDL is low and cholesterol an unlikely mechanism for current presentation Anticipate discharge Tuesday #Euvolemic Hyponatremia-resolved Patient slowly developing hyponatremia since admission, lowering approximately 1-2 mEq Na per day. On morning of 03/06, Na 128, and on recheck at 2PM, 126. Patient is likely euvolemic. Initially suspected hyponatremia to be due to poor oral intake, but patient has been tolerating her cardiac diet well and working with speech therapy daily. Plan: Nephrology Dr. Paz consulted, appreciate recommendations Recommendations are to continue monitoring sodium level daily Will recheck in AM #H. 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 Pompa was consulted time, completed EGD and biopsy Pathology confirmed H. pylori infection Patient's family states that she was never treated for H. pylori after discharge and never followed up outpatient with PCP or Dr. Peña Wetzel was also consulted due to Elevated CA 125 and CA 19?9 pending Plan: Completed triple therapy(2-week course) on 03/15 Follow-up with oncologist Dr. Wetzel outpatient for further evaluation of possible GI malignancy as seen by elevated cancer markers in serum #10mm Pulmonary Nodule 10mm pulmonary nodule right lower lobe as seen on CT chest/abdomen/pelvis during hospitalization in mid January for GI symptoms Radiology recommended at that time for 6-month follow-up CT Plan: Follow up outpatient for repeat imaging #Hypertension #Hyperlipidemia #Fibromyalgia #Migraines All chronic conditions present prior to admission Plan: Continue home dose of lisinopril 10mg PO qd Holding statin at this time as fluconazole has a known adverse effect of significantly increasing levels of serum statin Continue to monitor Health Maintenance: Disposition: Med surg; likely d/c 03/19 to SNF Diet: Cardiac diet GI prophylaxis: None indicated DVT prophylaxis: Lovenox 40mg qd Code: Full code Plan of care discussed with Attending Dr. Card. Prince Del Rosario, PGY-3 Attending Provider Attestation/Addendum I have discussed and was present for the essential components of the history, physical examination, diagnosis, and treatment plan with the resident. I agree with the patient's care as documented by the resident and amended herein by me. Kedar Card, DO. Patient seen and evaluated this AM. In short, 58-year-old female with significant past medical history of HTN, HLD, fibromyalgia, migraines and cerebellar CVA on the right, presented to the ED with stroke-like symptoms. Patient subsequently admitted for stroke workup, patient not given thrombolytics. Patient subsequently found to have autoimmune encephalitis, left basal ganglia CVA and Coccidioides meningitis. Neurology and infectious disease currently following. Patient also subsequently be treated for H. pylori infection which she completed triple therapy on 03/15 Today, vital signs stable, patient afebrile. Labs largely unremarkable today. Patient has no subjective complaints. Patient presently on fluconazole 800 mg nightly, aspirin 81 mg daily, patient also started steroid taper, presently given 30 mg p.o. prednisone today, will end in 2 more days at 10 mg. Patient cleared for discharge to SNF however presently awaiting insurance authorization would likely will not happen till Tuesday. Although this document has been carefully reviewed, there may still be some phonetic and other typographical errors. These errors are purely grammatical due to imperfections in the software program and should not be construed in any way to compromise the substance of the patient's medical care during this visit.
--- NOTE | 2024-03-17 13:33 | PC.NURSE ---
Notified Dr. Card patient is in pain. Patient is complaining of buttocks pain. Will administer pain medication when orders are in.
[2024-03-17] MEDS: IBUPROFEN TAB 600 MG TABLET PO (14:20)
--- NOTE | 2024-03-17 14:43 | PCS.ST ---
Rounding: Pt still pending auth
--- NOTE | 2024-03-17 22:16 | PD.NEUROPROG ---
Documentation for date of: 03/17/24 Subjective Subjective Interval history: Patient was seen in [facility] with family at the bedside. She continues to be right hemiplegic but able to communicate better. she has no more abnormal involuntary movements involving the face/left upper extremity. Exam - Neurology Vital Signs Temp Pulse Resp BP Pulse Ox O2 Del Method 97.6 F 87 18 123/73 97 Room Air 03/17/24 20:00 03/17/24 20:00 03/17/24 20:00 03/17/24 20:00 03/17/24 20:00 03/17/24 20:00 Narrative Exam GENERAL APPEARANCE: Well developed, well-nourished in no acute distress. HEENT: Normocephalic, atraumatic, extraocular movements intact. Pupils: Equal reacting to light NECK: Supple, no JVD or bruits. CARDIOVASULAR: Heart: S1, S2 heard, regular without S3-S4 or murmur no rubs or gallops. LUNGS/CHEST: Clear to auscultation bilaterally. No rails, rhonchi, or wheezing. Normal inspection. ABDOMEN: Soft, nontender, with normal bowel sounds. No pulsatile masses. No rebound, rigidity, or guarding. Normal inspection and palpation. EXTREMITIES: Normal inspection and palpation. No edema, clubbing or cyanosis. SKIN: Warm and dry without rashes. Normal inspection. MUSCULOSKELETAL: No cervical, thoracic, lumbar or midline bony tenderness. Normal inspection. NEURO: Alert, awake and able to say more words and names of family members. Dense right hemiplegia noted. Purposeful movements noted in the left upper and lower extremities noted.. no signs of meningeal irritation noted. PSYCHIATRIC: normal mood and affect. Objective Labs 03/17/24 04:47 03/17/24 04:47 Labs: Laboratory Results - last 24 hr 03/17/24 04:47 WBC 6.9 RBC 3.85 L Hgb 12.4 Hct 35.8 L MCV 93 MCH 32.2 MCHC 34.6 RDW Std Deviation 50.7 H Plt Count 358 D Neut % (Auto) 63 Lymph % (Auto) 24 [place] % (Auto) 10 Eos % (Auto) 0 Baso % (Auto) 0 Neut # (Auto) 4.3 Lymph # (Auto) 1.7 [place] # (Auto) 0.7 Eos # (Auto) 0.0 Baso # (Auto) 0.0 Immature Gran # (Auto) 0.22 H Absolute Nucleated RBC 0.05 H Immature Gran % 3 H Nucleated RBC % 1 H Sodium 135 L Potassium 3.8 Chloride 100 Carbon Dioxide 28.8 Anion Gap 6 L BUN 20 Creatinine 0.5 L Estim Creat Clear Calc 95.8 eGFR > 60 BUN/Creatinine Ratio 40 H Glucose 98 Calculated Osmolality 272 L Calcium 9.4 Corrected Calcium 9.7 Magnesium 2.3 Total Bilirubin 0.8 AST 28 ALT 50 H Alkaline Phosphatase 77 Total Protein 5.7 Albumin 3.6 Globulin 2.1 L Albumin/Globulin Ratio 1.7 Assessment & Plan Assessment and plan (1) Abnormal involuntary movements: Status: Resolved Assessment and plan: 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 Hyponatremia is commonly associated with it. csf showed lymphocytic pleocytosis and elevated protein and low glucose still. FU with serum and CSF for autoimmune encephalitis panel: specifically: VGKC and LGI1 ab Completed IV Solu-Medrol for 5 days , now she is on oral prednisone taper As there is significant improvement in mental status and focal dystonic movements, will hold off on trial of IVIG therapy for now. As there is no improvement in right-sided motor function, she would need inpatient rehab, she is waiting for placement (2) Acute right hemiparesis: Status: Acute Assessment and plan: MRI brain showed multiple periventricular white matter changes suspicious for demyelination. Along with acute infarction involving the left basal ganglia. MRV: Limited study from motion Echocardiogram: Normal study CSF for MS panel: only oligoclonal bands positive. Follow-up with the CSF analysis for autoimmune encephalitis panel Continue with aspirin 81 mg a day Continue with PT/OT (3) Aphasia: Status: Acute Assessment and plan: Secondary to recent ? ischemic event Continue with speech therapy noted some improvement gradually (4) Recent cerebrovascular accident: Status: Chronic Assessment and plan: With new onset right-sided weakness and aphasia Continue with aspirin (5) Essential (primary) hypertension: Status: Acute Assessment and plan: Continue with the blood pressure control (6) Chronic migraine: Status: Chronic Assessment and plan: By history, stable now. (7) Coccidioidomycosis meningitis: Status: Acute Assessment and plan: CSF findings: Consistent with cocci meningitis : Cell count, protein and glucose with serology continue with the Diflucan for life with close monitoring of liver enzymes.
[2024-03-18] VITALS (7 sets, daily range): BP systolic 118–134; BP diastolic 61–80; PULSE 58–82; RESP 14–19; TEMP 36.4–37.1; O2SAT 95–99; BMI 21.7
[2024-03-18 06:13] LABS: Basophils % (Auto) 0 % (0-2.5); Eosinophils # (Auto) 0.1 Thou/mm3 (0.0-0.5); Eosinophils % (Auto) 1 % (0-10); Hematocrit 37.3 % (36.0-46.0); Hemoglobin 12.8 g/dL (12.0-16.0); Immature Granulocytes % (Auto) 6 % (0-0); Immature Granulocytes Auto 0.39 Thou/mm3 (0.00-0.00); Lymphocytes # (Auto) 1.8 Thou/mm3 (1.0-4.8); Lymphocytes % (Auto) 26 % (10-50); Mean Corpuscular HGB Conc 34.3 g/dl (31.0-37.0); Mean Corpuscular Volume 93 fL (80-100); Monocytes # (Auto) 0.7 Thou/mm3 (0.0-0.8); Monocytes % (Auto) 10 % (0-12); Neutrophils % (Auto) 58 % (37-80); Nucleated Red Blood Cell % 0 /100 WBC (0); Platelet Count 299 Thou/mm3 (140-440); White Blood Count 6.9 Thou/mm3 (3.6-11.0)
[2024-03-18 07:29] LABS: Alanine Aminotransferase 37 U/L (10-49); Albumin, Serum 3.7 gm/dL (3.5-5.0); Albumin/Globulin Ratio 1.7 (1.2-2.2); Alkaline Phosphatase 83 U/L (46-116); Anion Gap 8 (7-16); Aspartate Amino Transferase 22 U/L (0-34); BUN/Creatinine Ratio 37 Ratio (12-20); Bilirubin,Total 0.9 mg/dL (0.3-1.2); Blood Urea Nitrogen 22 mg/dL (9-23); Calcium 9.6 mg/dL (8.3-10.6); Calcium (Corrected) 9.8 mg/dL (8.5-10.1); Carbon Dioxide 28.4 mMol/L (20.0-31.0); Chloride 98 mMol/L (98-107); Creatinine (Component) 0.6 mg/dL (0.6-1.3); Estimated Creatinine Clearance 79.8 mL/min (>60); Globulin 2.2 gm/dL (2.3-3.5); Glucose 87 mg/dL (74-106); Magnesium 2.4 mg/dL (1.6-2.6); Osmolality,Calculated 270 (275-295); Sodium 134 mMol/L (136-145); Total Protein 5.9 gm/dL (5.7-8.2); eGFR > 60 See Note
[2024-03-18] MEDS: FLUCONAZOLE 100 MG TABLET 800 MG PO (09:18)
[2024-03-18] MEDS: Lisinopril 2.5 MG TABLET 10 MG PO (09:18)
[2024-03-18] MEDS: ASPIRIN EC 81 MG TABEC PO (09:19)
[2024-03-18] MEDS: ENOXAPARIN SOD INJ 40 MG/0.4 ML SYRINGE SC (09:19)
[2024-03-18] MEDS: predniSONE 20 MG TABLET PO (09:19)
[2024-03-18] MEDS: IBUPROFEN TAB 600 MG TABLET PO ×2 (09:27→19:25)
--- NOTE | 2024-03-18 10:12 | CHAP ---
Patient was visited by the Spiritual Care Volunteer from whom they received communion. (Volunteer was in the hospital from 09:24-10:12).
--- NOTE | 2024-03-18 16:28 | PD.RESPRO ---
Documentation for date of: 03/18/24 Subjective Subjective Interval history: Patient was seen and examined bedside. Son on the phone translated. Denies any new complaints no acute overnight events. Vitals are stable physical examination remains unchanged. Labs are within normal limits except for mild hyponatremia 134. Still pending SNF placement tomorrow. Will appreciate Dr. Santiago recommendations. Exam Vital Signs Temp Pulse Resp BP Pulse Ox O2 Del Method 98.2 F 81 19 121/61 98 Room Air 03/18/24 16:00 03/18/24 16:00 03/18/24 16:00 03/18/24 16:00 03/18/24 16:00 03/18/24 16:00 Narrative Exam General: Awake and in no acute distress. HEENT: Normocephalic, atraumatic, mucous membranes moist. Heart: Regular rate and rhythm, no murmurs. Lungs: Clear to auscultation with no wheezing or crackles. Abdomen: Soft, nondistended, nontender, positive bowel sounds. ?No guarding or rebound tenderness. Neurologic: Alert, awake and oriented. Right facial palsy with right hemiplegia was noted. Extremities: No edema. Skin: No ecchymoses. Decubitus ulcer is present on the coccyx area. Objective Labs 03/19/24 04:33 03/19/24 04:33 Labs: Laboratory Results - last 24 hr 03/18/24 04:48 WBC 6.9 RBC 4.00 Hgb 12.8 Hct 37.3 MCV 93 MCH 32.0 MCHC 34.3 RDW Std Deviation 51.0 H Plt Count 299 D Neut % (Auto) 58 Lymph % (Auto) 26 [place] % (Auto) 10 Eos % (Auto) 1 Baso % (Auto) 0 Neut # (Auto) 4.0 Lymph # (Auto) 1.8 [place] # (Auto) 0.7 Eos # (Auto) 0.1 Baso # (Auto) 0.0 Immature Gran # (Auto) 0.39 H Absolute Nucleated RBC 0.00 Immature Gran % 6 H Nucleated RBC % 0 Sodium 134 L Potassium 4.0 Chloride 98 Carbon Dioxide 28.4 Anion Gap 8 BUN 22 Creatinine 0.6 Estim Creat Clear Calc 79.8 eGFR > 60 BUN/Creatinine Ratio 37 H Glucose 87 Calculated Osmolality 270 L Calcium 9.6 Corrected Calcium 9.8 Magnesium 2.4 Total Bilirubin 0.9 AST 22 ALT 37 Alkaline Phosphatase 83 Total Protein 5.9 Albumin 3.7 Globulin 2.2 L Albumin/Globulin Ratio 1.7 Quality Measures Quality Measures VTE prophylaxis and stroke Suspected type of Stroke: Acute Ischemic Tenecteplase given: Reason(s) Tenecteplase not given: Outside the time window not given Rehab services: PT evaluation ordered VTE Prophylaxis: pharmaceutical Antithrombotic by day 2:: ordered Statin ordered: <75 y/o high intensity dose Anticoagulation ordered for A-fib or flutter (current or hx): not indicated Assessment & Plan Assessment Current Active Medications: Generic Name Dose Route Start Last Admin Trade Name Freq PRN Reason Stop Dose Admin Aspirin 81 mg 03/01/24 13:30 03/18/24 09:19 Aspirin Ec 81 Mg Tabec PO 03/31/24 13:29 81 mg QDAY ROGER Administration Enoxaparin Sodium 40 mg 03/18/24 09:00 03/18/24 09:19 Enoxaparin Sod Inj 40 Mg/0.4 Ml Syringe SC 04/01/24 08:59 40 mg QDAY ROGER Administration Fluconazole 800 mg 03/10/24 13:00 03/18/24 09:18 Fluconazole 100 Mg Tablet PO 04/14/24 10:29 800 mg QDAY ROGER Administration Ibuprofen 600 mg 03/17/24 13:58 03/18/24 09:27 Ibuprofen Tab 600 Mg Tablet PO 04/16/24 13:57 600 mg Q8HR PRN Administration Pain Or Fever > 100 Lisinopril 10 mg 03/02/24 11:15 03/18/24 09:18 Lisinopril 2.5 Mg Tablet PO 04/01/24 11:14 10 mg QDAY ROGER Administration Ondansetron HCl 4 mg 02/28/24 14:28 Ondansetron Inj 2 Mg/Ml Inj 2 Ml IV 03/29/24 14:27 Q4HR PRN NAUSEA OR VOMITING Prednisone 10 mg 03/19/24 09:00 Prednisone 5 Mg Tablet PO 03/19/24 09:01 X1 ONE Sennosides 1 tab 02/29/24 16:17 Senna Tablet PO 03/30/24 16:16 QDAY PRN CONSTIPATION Protocol Plan 58-year-old female with a past medical history of hypertension, hyperlipidemia, fibromyalgia, migraines, and 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 Given patient's clinical status, daughter at bedside provided history. Father called daughter stating that patient was weak to get out of bed, then son went to see patient at 10 a.m. and patient was not responding to questions. EMS was called and patient was then brought to the ED. In ED, patient was noted to have right-sided hemiparesis, right-sided facial droop, and aphasia so stroke alert was called. Initial CT head showed concern for possible SAH versus artifact. However, patient not candidate for thrombolytics given recent stroke within last month and outside of window. Of note, patient discharged 02/03 after being admitted for gastroenteritis, found to have elevated CA-125, and was told to follow-up with Dr. Wetzel outpatient but had not been able to due to insurance issues. 03/17/2024: Patient was seen and examined by bedside with present in room during exam, no acute overnight events reported, vitals stable with BP mildly elevated at 140/75, no change in CBC/CMP, patient on Prednisone taper and received 30mg per neuro taper recs, continues to work with PT daily. Patient will likely be discharged on Monday 03/19 once insurance and social work faculty member clear patient for discharge to SNF. 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 Repeat MRI with contrast demonstrated 17mm acute infarct of left basal ganglia Patient has history of Cocci IgM and IgG CSF is clear, colorless with 72 WBC and 23 RBC, 5 mononuclear WBC and 95 polynuclear WBC, glucose low at 27 and total protein elevated at 179. CSF influenza, meningitis, strep negative pending mild protein only with no bands and cocci Venogram MRI degraded study Speech therapy recommends extensive speech therapy for months PT recommends acute rehab placement Lipid panel, TSH, NH3, B6/B9/B12, and A1c were ordered for further evaluation, all were within normal limits Repeat CT Head/Brain findings remained suspicious for SAH; however LP was negative for blood (low RBC count) and was clear Protein C/S and Factor V Leiden negative EEG shows multifocal slowing and spike/dome appearance in frontal, central and temporal areas Plan: 5 days of oral steroid tapering commenced Neurologist Dr. Santiago consulted, appreciate recs Follow-up on VGKC and LGI1 antibodies outpatient with neurology ID consulted, Dr. Hernandez following Continue aspirin 81mg PO qd Continue Fluconazole 800mg PO HS for confirmed coccidioides Neurochecks q4h DVT prophylaxis Head of bed 30 degrees Euglycemia and avoid hyperthermia Holding off on Plavix at this time per teleneurology's recommendations, continue aspirin monotherapy Teleneurology recommending to continue holding statin as patient's LDL is low and cholesterol an unlikely mechanism for current presentation Anticipate discharge Tuesday #Euvolemic Hyponatremia-resolved Patient slowly developing hyponatremia since admission, lowering approximately 1-2 mEq Na per day. On morning of 03/06, Na 128, and on recheck at 2PM, 126. Patient is likely euvolemic. Initially suspected hyponatremia to be due to poor oral intake, but patient has been tolerating her cardiac diet well and working with speech therapy daily. Plan: Nephrology Dr. Paz consulted, appreciate recommendations Recommendations are to continue monitoring sodium level daily Will recheck in AM #H. 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 Pompa was consulted time, completed EGD and biopsy Pathology confirmed H. pylori infection Patient's family states that she was never treated for H. pylori after discharge and never followed up outpatient with PCP or Dr. Peña Wetzel was also consulted due to Elevated CA 125 and CA 19?9 pending Plan: Completed triple therapy(2-week course) on 03/15 Follow-up with oncologist Dr. Wetzel outpatient for further evaluation of possible GI malignancy as seen by elevated cancer markers in serum #10mm Pulmonary Nodule 10mm pulmonary nodule right lower lobe as seen on CT chest/abdomen/pelvis during hospitalization in mid January for GI symptoms Radiology recommended at that time for 6-month follow-up CT Plan: Follow up outpatient for repeat imaging #Hypertension #Hyperlipidemia #Fibromyalgia #Migraines All chronic conditions present prior to admission Plan: Continue home dose of lisinopril 10mg PO qd Holding statin at this time as fluconazole has a known adverse effect of significantly increasing levels of serum statin Continue to monitor Health Maintenance: Disposition: Med surg; likely d/c 03/19 to SNF Diet: Cardiac diet GI prophylaxis: None indicated DVT prophylaxis: Lovenox 40mg qd Code: Full code Patient plan of care was discussed with the attending physician, Dr. Lisa Feldman, PGY1 Attending Provider Attestation/Addendum Dahiana Bullock DO, attest that I was physically present for the bennett portions of the service and evaluated the patient with the resident and I reviewed and discussed the case with the resident and agree with the resident's findings and plans of care as documented above Patient seen eval this a.m. Time events overnight patient seen and evaluated this a.m. at bedside. She has no acute complaints at this time. She denies any headache or visual changes. Patient has 1 out of 5 muscle strength in her right upper and lower extremity. She continues to have right facial droop as well. Speech appears to be improved however. Pending authorization to [facility] facility at this time. Anticipate discharge in the next 24 hours.
--- NOTE | 2024-03-18 19:58 | PD.NEPHPROG ---
Documentation for date of: 03/18/24 Subjective Subjective Interval history: Neda Sauceda is a 58-year-old female with a past medical history of hypertension, hyperlipidemia, fibromyalgia, migraines, and 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 Given patient's clinical status, daughter at bedside provided history. Father called daughter stating that patient was weak to get out of bed, then son went to see patient at 10 a.m. and patient was not responding to questions. EMS was called and patient was then brought to the ED. In ED, patient was noted to have right-sided hemiparesis, right-sided facial droop, and aphasia so stroke alert was called. Initial CT head showed concern for possible SAH versus artifact. However, patient not candidate for thrombolytics given recent stroke within last month and outside of window. Of note, patient discharged 02/03 after being admitted for gastroenteritis, found to have elevated CA 125, and was told to follow-up with Dr. Wetzel outpatient but had not been able to due to insurance issues. Patient nonverbal at this time but is able to track with his eyes and seems to understand questioning by giving a thumbs up sign. There is definite right-sided facial drooping noted when patient is asked to smile or opening her mouth. Teleneurology was consulted and the recommendation was to repeat MRI with contrast along with MRV. Telemetry neurology also recommends with discontinuing some of the empiric medications but to follow-up with ID which has also been consulted. Infectious disease recommends on discontinuing vancomycin to continue the other medications at this time. Patient is able to communicate minimally with 1-2 words but has persistent right-sided upper and lower extremity weakness, left-sided neglect and persistent facial droop. Repeat brain MRI with contrast was positive for 17 mm acute infarct of the left basal ganglia. Dr. Hernandez has given recommendations to stop antibiotics, acyclovir, and statins (for the time being) for previous differential of diagnosis bacterial meningitis as they can negative interact with fluconazole clearance and at this point, bacterial etiology behind patient's clinical condition unlikely. Teleneurology saw the patient and recommended routine EEG and to start aspirin 81mg PO qd, but to hold off on Plavix at this time. Patient has had lumbar puncture which did not show any blood. Patient able to verbalize very slowly with a couple words when spoken to in German. Patient slowly regaining some speech and left-sided extremity function. Patient's mild hyponatremia worsening day by day. Nephrology consulted for worsening hyponatremia, concern for salt wasting syndrome. Patient seen and examined on the floors, resting comfortably in bed. Eating soft foods slowly with assistance. Patient minimally verbal, gave one-word answers. Patient follow commands appropriately. Patient showed severe right sided weakness. Serum osmolality 252. Serum sodium 127, improved from yesterday. BUN 6, creatinine 0.5, eGFR >60. Urine sodium 19.4. Will continue to monitor sodium levels. 03/08: Patient seen and examined on the floors. Patient resting comfortably in bed. Patient able to give occasional one-word answers. Follows commands commands appropriately. Sodium 127, potassium 3.6, bicarb 24.6, BUN 6, creatinine 0.5, eGFR >60. Will continue to monitor. 03/09: Patient seen and examined on floors. Patient resting comfortably in bed. Patient to give occasional mild answers, follows commands appropriately. Sodium 129, potassium 3.5, bicarb 25.4, BUN 7, creatinine 0.5, eGFR >60. Sodium improving appropriately without intervention. 03/10: Patient seen and examined on floors. Patient resting comfortably in bed. Patient follows commands appropriately, maintains dense hemiplegia of right side. Sodium 130, potassium 4.6, bicarb 23.3, BUN 9, creatinine 0.6, eGFR >60. 03/11: Patient seen and examined on floors. Patient resting comfortably in bed. Patient follows commands appropriately, had minimal movements of right hand and foot, improved from before. Follows commands appropriately, was able to speak her name clearly. Sodium 133, potassium 4.0, bicarb 24.6, BUN 13, creatinine 0.6, eGFR >60. 03/18/2024 Patient seen and examined on floors. Patient resting comfortably in bed. Follows commands appropriately, minimal movements of right hand and foot. Son at bedside. He is the informant. Blood sugar 210. Blood pressure 121/61, heart rate 81. CBC normal. Sodium 134. Creatinine 0.6. Reviewed neurology notes. Renal strauss no further recommendations. Will sign off. Thank you for the consult. Review of Systems Review of Systems Systems Reviewed: All systems reviewed, normal except as documented Narrative Review of Systems: Right-sided stroke with a dysphagia Exam Vital Signs Temp Pulse Resp BP Pulse Ox O2 Del Method 36.8 C 81 19 121/61 98 Room Air 03/18/24 16:00 03/18/24 16:00 03/18/24 16:00 03/18/24 16:00 03/18/24 16:00 03/18/24 16:00 Narrative Exam PE: Gen: Well-developed and well-nourished. HEENT: NCAT, PERRLA, EOMI, MMM, anicteric conjunctivae. Right sided facial droop. Dysphagia noted CVS: normal S1 and S2. RRR. No M/R/G. Resp: CTA B/L. No rhonchi, rales, crackles or wheezing. Abd: soft, non-tender, non-distended. MSK: Good ROM in LUE & LLE. No edema or rash. Minimal movement in right upper and lower extremities due to neurological deficit. Neuro:Strength 4/5 in LUE & LLE. Alert and oriented x3. Strength 1/5 in right upper and lower extremity. Increased verbal responsiveness. Follows commands. Objective Labs 03/18/24 04:48 03/18/24 04:48 Labs: Laboratory Results - last 24 hr 03/18/24 04:48 WBC 6.9 RBC 4.00 Hgb 12.8 Hct 37.3 MCV 93 MCH 32.0 MCHC 34.3 RDW Std Deviation 51.0 H Plt Count 299 D Neut % (Auto) 58 Lymph % (Auto) 26 [place] % (Auto) 10 Eos % (Auto) 1 Baso % (Auto) 0 Neut # (Auto) 4.0 Lymph # (Auto) 1.8 [place] # (Auto) 0.7 Eos # (Auto) 0.1 Baso # (Auto) 0.0 Immature Gran # (Auto) 0.39 H Absolute Nucleated RBC 0.00 Immature Gran % 6 H Nucleated RBC % 0 Sodium 134 L Potassium 4.0 Chloride 98 Carbon Dioxide 28.4 Anion Gap 8 BUN 22 Creatinine 0.6 Estim Creat Clear Calc 79.8 eGFR > 60 BUN/Creatinine Ratio 37 H Glucose 87 Calculated Osmolality 270 L Calcium 9.6 Corrected Calcium 9.8 Magnesium 2.4 Total Bilirubin 0.9 AST 22 ALT 37 Alkaline Phosphatase 83 Total Protein 5.9 Albumin 3.7 Globulin 2.2 L Albumin/Globulin Ratio 1.7 Assessment & Plan Assessment and plan (1) Abnormal involuntary movements: Status: Resolved (2) Acute right hemiparesis: Status: Acute (3) Aphasia: Status: Acute (4) Recent cerebrovascular accident: Status: Chronic (5) Essential (primary) hypertension: Status: Acute (6) Chronic migraine: Status: Chronic (7) Coccidioidomycosis meningitis: Status: Acute Additional Assessment & Plan Additional Plan: 58-year-old female with a past medical history of hypertension, hyperlipidemia, fibromyalgia, migraines, and 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 #Hyponatremia Improved with fluid restriction, normal saline. 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 pylori infection #GI malignancy, possible #10mm Pulmonary Nodule #Hypertension #Hyperlipidemia #Fibromyalgia #Migraines Management as per primary team. Patient currently seen in medical floor. Resting comfortably. She has a right dense hemiplegia. Pending placement. Renal strauss no further recommendations. Sodium stable at 134. Renal will sign off. Thank you for the consult..
--- NOTE | 2024-03-18 23:20 | PD.VPROG1 ---
Telemedicine visit statement This visit was conducted with the use of interactive audio and video telecommunications system that permits real time communication between the patient and the provider. Patient's verbal consent for virtual visit was obtained on 03/18/24 at 2320. Documentation for date of: 03/18/24 Subjective Subjective Interval history: Patient is in medtelemetry with family. no new complaints noted. Involuntary movements in the face and left UE have been resolved, She denies any headache. Able to communicate much better, right dense hemiplegia unchanged. Virtual exam Vital Signs Temp Pulse Resp BP Pulse Ox O2 Del Method 98 F 82 18 120/70 97 Room Air 03/18/24 20:00 03/18/24 20:00 03/18/24 20:00 03/18/24 20:00 03/18/24 20:00 03/18/24 20:00 Objective Labs 03/19/24 04:33 03/19/24 04:33 Labs: Laboratory Results - last 24 hr 03/18/24 04:48 WBC 6.9 RBC 4.00 Hgb 12.8 Hct 37.3 MCV 93 MCH 32.0 MCHC 34.3 RDW Std Deviation 51.0 H Plt Count 299 D Neut % (Auto) 58 Lymph % (Auto) 26 [place] % (Auto) 10 Eos % (Auto) 1 Baso % (Auto) 0 Neut # (Auto) 4.0 Lymph # (Auto) 1.8 [place] # (Auto) 0.7 Eos # (Auto) 0.1 Baso # (Auto) 0.0 Immature Gran # (Auto) 0.39 H Absolute Nucleated RBC 0.00 Immature Gran % 6 H Nucleated RBC % 0 Sodium 134 L Potassium 4.0 Chloride 98 Carbon Dioxide 28.4 Anion Gap 8 BUN 22 Creatinine 0.6 Estim Creat Clear Calc 79.8 eGFR > 60 BUN/Creatinine Ratio 37 H Glucose 87 Calculated Osmolality 270 L Calcium 9.6 Corrected Calcium 9.8 Magnesium 2.4 Total Bilirubin 0.9 AST 22 ALT 37 Alkaline Phosphatase 83 Total Protein 5.9 Albumin 3.7 Globulin 2.2 L Albumin/Globulin Ratio 1.7 Assessment & Plan Assessment (1) Abnormal involuntary movements: Resolved 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 Hyponatremia is commonly associated with it. csf showed lymphocytic pleocytosis and elevated protein and low glucose still. FU with serum and CSF for autoimmune encephalitis panel: specifically: VGKC and LGI1 ab she completed 5 days of IV steroids and oral steroids : Weaning schedule (2) Acute right hemiparesis: MRI brain showed multiple periventricular white matter changes suspicious for demyelination. Along with acute infarction involving the left basal ganglia. MRV: Limited study from motion Echocardiogram: Normal study CSF for MS panel: only oligoclonal bands positive. igG index, IgG synthesis rate and myelin Basic protein: all are wnl Continue with aspirin 81 mg a day Continue with PT/OT Needs placement in acute rehab for continuing physical therapy. (3) Aphasia: Continue to show improvement gradually Secondary to recent ? ischemic event Continue with speech therapy (4) Recent cerebrovascular accident: improving language deficit With new onset right-sided weakness and aphasia Continue with aspirin and PT (5) Essential (primary) hypertension: Continue with the blood pressure control (6) Chronic migraine: By history, stable now. 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
[2024-03-19] VITALS: BP 118/79; PULSE 62; RESP 18; TEMP 37; O2SAT 97
[2024-03-19 04:00] VITALS: BP 124/70; PULSE 66; RESP 18; TEMP 36.6; O2SAT 97
[2024-03-19 05:56] LABS: Basophils % (Auto) 0 % (0-2.5); Eosinophils # (Auto) 0.1 Thou/mm3 (0.0-0.5); Eosinophils % (Auto) 2 % (0-10); Hematocrit 38.4 % (36.0-46.0); Hemoglobin 13.2 g/dL (12.0-16.0); Immature Granulocytes % (Auto) 4 % (0-0); Immature Granulocytes Auto 0.34 Thou/mm3 (0.00-0.00); Lymphocytes # (Auto) 1.7 Thou/mm3 (1.0-4.8); Lymphocytes % (Auto) 22 % (10-50); Mean Corpuscular HGB Conc 34.4 g/dl (31.0-37.0); Mean Corpuscular Hemoglobin 32.5 pg (25.0-35.0); Mean Corpuscular Volume 95 fL (80-100); Monocytes # (Auto) 0.6 Thou/mm3 (0.0-0.8); Monocytes % (Auto) 7 % (0-12); Neutrophils % (Auto) 64 % (37-80); Nucleated Red Blood Cell % 0 /100 WBC (0); Platelet Count 302 Thou/mm3 (140-440); RDW Standard Deviation 52.6 fL (36.4-46.3); Red Blood Count 4.06 Miln/mm3 (4.00-5.20); White Blood Count 7.8 Thou/mm3 (3.6-11.0)
[2024-03-19 06:00] VITALS: BMI 21.7
[2024-03-19 06:21] LABS: Alanine Aminotransferase 39 U/L (10-49); Albumin, Serum 3.6 gm/dL (3.5-5.0); Albumin/Globulin Ratio 1.4 (1.2-2.2); Alkaline Phosphatase 92 U/L (46-116); Anion Gap 6 (7-16); Aspartate Amino Transferase 16 U/L (0-34); BUN/Creatinine Ratio 48 Ratio (12-20); Bilirubin,Total 0.6 mg/dL (0.3-1.2); Blood Urea Nitrogen 19 mg/dL (9-23); Calcium 10.1 mg/dL (8.3-10.6); Calcium (Corrected) 10.4 mg/dL (8.5-10.1); Carbon Dioxide 28.4 mMol/L (20.0-31.0); Chloride 101 mMol/L (98-107); Creatinine (Component) 0.4 mg/dL (0.6-1.3); Estimated Creatinine Clearance 119.8 mL/min (>60); Globulin 2.6 gm/dL (2.3-3.5); Glucose 91 mg/dL (74-106); Magnesium 2.4 mg/dL (1.6-2.6); Osmolality,Calculated 272 (275-295); Potassium 4.2 mMol/L (3.4-5.1); Sodium 135 mMol/L (136-145); Total Protein 6.2 gm/dL (5.7-8.2); eGFR > 60 See Note
[2024-03-19 07:39] VITALS: BP 113/67; PULSE 77; RESP 18; TEMP 36.1; O2SAT 97
[2024-03-19 08:51] VITALS: BP 113/67; PULSE 77
[2024-03-19] MEDS: Lisinopril 2.5 MG TABLET 10 MG PO (08:51)
[2024-03-19] MEDS: ENOXAPARIN SOD INJ 40 MG/0.4 ML SYRINGE SC (08:51)
[2024-03-19] MEDS: FLUCONAZOLE 100 MG TABLET 800 MG PO (08:51)
[2024-03-19] MEDS: ASPIRIN EC 81 MG TABEC PO (08:52)
[2024-03-19] MEDS: IBUPROFEN TAB 600 MG TABLET PO ×2 (08:52→16:59)
[2024-03-19] MEDS: predniSONE 5 MG TABLET 10 MG PO (08:52)
[2024-03-19 11:33] VITALS: BP 109/62; PULSE 88; RESP 18; TEMP 36.5; O2SAT 98
--- NOTE | 2024-03-19 12:13 | PC.SS ---
SS update: contacted Charline at [facility], informs insurance authorization to SNF remains pending. Updated Dr. Camacho.
--- NOTE | 2024-03-19 14:46 | ESDS_ITS ---
<Statement entered by Dahiana Gonzalez DO - 03/26/24 07:40> I, Dahiana Gonzalez DO, attest that I was physically present for the bennett portions of the service and evaluated the patient with the resident and I reviewed and discussed the case with the resident and agree with the resident's findings and plans of care as documented above <Statement entered by Chaparro Ribera MD - 03/23/24 07:32> Patient was seen and examined by me personally. I agree with the discharge plan as discussed with the purchasing internship physician, and my attending, Dr. Johnson. Chaparro Ribera MD, PGY-3 Planned Discharge Date 03/19/24 DS: Providers Provider Date of admission: 02/28/24 20:28 Primary care physician: Physician No Primary/Family Admitting Provider: Raimundo Joshi MD Attending Provider on Admission: Adryan Card DO Consults: 02/28/24 14:28 Consult to Neurology / Tele-Neurology Routine Comment: Consulting Provider: Varun Santiago 02/29/24 00:28 Referral Infection Control Routine Comment: Reason for Infection Control Referral: Readmitted within 30 days Referral Registered Dietitian Routine Comment: 02/29/24 08:14 Consult to Infectious Diseases Routine Comment: meningitis vs cocci meningitis vs GBS Consulting Provider: Todd Hernandez 02/29/24 10:09 Referral Speech Therapy Routine Comment: 02/29/24 11:08 Referral Physical Therapy Stat Comment: Physician Instructions: 03/06/24 16:31 Consult to Nephrology Routine Comment: Hyponatremia Consulting Provider: Cl Paz 03/16/24 02:26 Referral Nutritional Services Routine Comment: Referral Wound Care Routine Comment: 03/19/24 11:40 Referral Wound Care Stat Comment: Attending Provider on DC: Dav Feldman MD Discharging Provider: Dav Feldman MD DS: Diagnosis Problem List Completed Was Problem List Reviewed/Reconciled?: Yes Hospital Course Hospital Course Hospital course: Neda Sauceda is a 58-year-old female with a past medical history of hypertension, hyperlipidemia, fibromyalgia, migraines, and CVA of right cerebellar hemisphere and right superior vermis on 01/20 brought to the hospital on 02/28/2024 with right-sided deficits and aphasia. In ED, patient was noted to have right-sided hemiparesis, right-sided facial droop, and aphasia so stroke alert was called. Initial CT head showed concern for possible SAH versus artifact. Lumbar puncture and CSF analysis was done on 02/28/2024 that showed clear, colorless CSF with low glucose 27, high protein 179 and oligoclonal bands. MRI on 02/28/2024 showed very prominent foci of increased signal in the white matter, demyelinating disease pattern. He repeat MRI done on 02/29/2024 showed 17 mm acute infarct in the left basal ganglia. Venogram was done but as the patient is moving continuously, could not complete the imaging. Echo showed EF of 60 to 65% with no evidence of PFO/ASD. Dr. Santiago was consulted and following the patient during throughout the hospital stay. CAITLYN screen was sent that showed 1: 280 titers and mitotic chromosomal CAITLYN pattern. Syphilis serology and hepatitis C antibody was nonreactive. Patient was seen by Dr. Pompa recently and EGD and biopsy was done that showed confirmed H. pylori information on pathology and patient received triple therapy during the hospital stay and completed the course. Found to have elevated CA125 and a 10 mm pulmonary nodule for which Dr. Wetzel was consulted and recommended to follow-up in the outpatient basis. As patient has recent history of positive cocci IgM and IgG, patient was started on fluconazole as CSF results showed low glucose and high protein. Hypercoagulable studies including homocystine, protein C/protein S, factor V [place], fibrinogen was sent. Later during the hospital stay patient developed hyponatremia and consulted Dr. paz who suggested that it could be salt wasting syndrome. Repeat CSF analysis was done on 03/09/2024 that showed low glucose and high protein. As patient is having low sodium with neurological deficits, Dr. Santiago suspected facial brachial dystonic seizures that could be manifestation of autoimmune encephalitis: Most likely allergy I 1 limbic encephalitis and ordered autoimmune encephalitis panel specifically VGKC and LG I1 antibodies, patient was started on steroids and slowly taper during the hospital stay. The autoimmune panel was still pending and advised the patient to follow-up on outpatient basis with Dr. Santiago. EEG done during the hospital stay showed normal study. Patient was advised to follow-up with Dr. Santiago, Dr. Wetzel on outpatient basis Patient was discharged to [facility] facility with the following medications and recommendations. Continue Fluconazole 800mg daily for the rest of your life and continue to monitor liver enzymes. Continue rest of the medications as prescribed Hold Atorvastatin to reduce possible liver injury. Continue to work with physical therapy. Follow up with PCP within 2 weeks of discharge. Follow up with Neurology- Dr. Santiago within 2 weeks of discharge. Follow-up with Dr. Wetzel for the pulmonary nodule and elevated CA125. Return to ED if symptoms recur or worsen. #Autoimmune Encephalitis #Focal neurological deficits, right-sided #CVA of Left Basal Ganglia #Coccidioides Meningitis #History of CVA #Euvolemic Hyponatremia-resolved #H. pylori infection, resolved #GI malignancy, possible #10mm Pulmonary Nodule #Hypertension #Hyperlipidemia #Fibromyalgia #Migraines Patient plan of care was discussed with the attending physician, Dr. Gonzalez and senior resident Dr. Bacilio Feldman, PGY1 Time Spent with Patient Time attestation: Total time spent providing and/or coordinating discharge services: Time spent: Greater than 30 minutes Quality: Stroke Pt Provided Written Stroke Discharge Instructions: No Exam Vital Signs Temp Pulse Resp BP Pulse Ox O2 Del Method 97.7 F 88 18 109/62 98 Room Air 03/19/24 11:33 03/19/24 11:33 03/19/24 11:33 03/19/24 11:33 03/19/24 11:33 03/19/24 11:33 Narrative Exam General: Awake and in no acute distress. HEENT: Normocephalic, atraumatic, mucous membranes moist. Heart: Regular rate and rhythm, no murmurs. Lungs: Clear to auscultation with no wheezing or crackles. Abdomen: Soft, nondistended, nontender, positive bowel sounds. ?No guarding or rebound tenderness. Neurologic: Alert, awake and oriented. Right facial palsy with right hemiplegia was noted. Extremities: No edema. Skin: No ecchymoses. Decubitus ulcer is present on the coccyx area. Discharge Plan Plan Patient Disposition: Xfer Skilled Nsg Fac (SNF) Disposition Comment: [facility] Patient condition on transfer: Stable Prescriptions/Referrals Prescriptions/Med Rec: New sennosides [Senna Lax] 8.6 mg Tablet 8.6 mg PO QDAY PRN (Reason: Constipation) 30 Days Qty: 30 0RF lisinopril 10 mg tablet 10 mg PO QDAY 30 Days Qty: 30 0RF fluconazole 200 mg tablet 800 mg PO QDAY 30 Days Qty: 120 12RF Continued acetaminophen 500 mg tablet 500 mg PO [id number] PRN (Reason: Pain) meclizine 25 mg tablet 25 mg PO Q12H PRN (Reason: Dizziness) aspirin 81 mg tablet,delayed release (DR/EC) 81 mg PO DAILY Patient Comments: TOME 1 TABLETA POR V A ORAL TODOS LOS D FOR 90 DAYS Discontinued atorvastatin 80 mg tablet 80 mg PO HS Patient Comments: TOME 1 TABLETA POR V A ORAL TODOS LOS D FOR 90 DAYS No Action duloxetine 30 mg capsule,delayed release(DR/EC) 30 mg PO QDAY clopidogrel [Plavix] 75 mg Tablet 75 mg PO QDAY Referrals: Todd Hernandez MD [Physician] - No Primary/Family,Physician [Primary Care Provider] - Varun Santiago MD [Physician] - Patient/Caregiver Discharge Instructions Other Discharge Activity Instructions:: Take medications as prescribed. Continue Fluconazole 800mg daily for the rest of your life and continue to monitor liver enzymes. Follow with fluconazole Hold Atorvastatin to reduce possible liver injury. Continue to work with physical therapy. Follow up with PCP within 2 weeks of discharge. Follow up with Neurology- Dr. Santiago within 2 weeks of discharge. Return to ED if symptoms recur or worsen. Education Materials: Discharge Instructions for Stroke Print Language: Croatian Stand Alone Forms: Sarah Award Info., Patient Portal Info Letter Discharge Order Discharge Orders: Discharge (Routine); Ordered 03/16/24 Ordered By: Prince DelR osario Quality Discharge Quality Measures VTE prophylaxis
--- NOTE | 2024-03-19 15:05 | PC.SS ---
Follow up note: SS spoke to Charline @ [facility] and they now have authorization. SS updated daughter, Teresita and she is agreeable to have discharge today. SS updated patients nurse Ethel that ETA will be for 1700.
[2024-03-19 16:00] VITALS: BP 124/75; PULSE 78; RESP 18; TEMP 36; O2SAT 97
--- NOTE | 2024-03-19 16:01 | PC.LAC ---
Gave report to Alejandra at [facility]
--- NOTE | 2024-03-19 21:08 | PD.NEUROPROG ---
Documentation for date of: 03/19/24 Subjective Subjective Interval history: Patient was seen in [facility] with family at the bedside. She continues to be right hemiplegic but able to communicate better. she has no more abnormal involuntary movements involving the face/left upper extremity. Exam - Neurology Vital Signs Temp Pulse Resp BP Pulse Ox O2 Del Method 96.8 F 78 18 124/75 97 Room Air 03/19/24 16:00 03/19/24 16:00 03/19/24 16:00 03/19/24 16:00 03/19/24 16:00 03/19/24 16:00 Narrative Exam GENERAL APPEARANCE: Well developed, well-nourished in no acute distress. HEENT: Normocephalic, atraumatic, extraocular movements intact. Pupils: Equal reacting to light NECK: Supple, no JVD or bruits. CARDIOVASULAR: Heart: S1, S2 heard, regular without S3-S4 or murmur no rubs or gallops. LUNGS/CHEST: Clear to auscultation bilaterally. No rails, rhonchi, or wheezing. Normal inspection. ABDOMEN: Soft, nontender, with normal bowel sounds. No pulsatile masses. No rebound, rigidity, or guarding. Normal inspection and palpation. EXTREMITIES: Normal inspection and palpation. No edema, clubbing or cyanosis. SKIN: Warm and dry without rashes. Normal inspection. MUSCULOSKELETAL: No cervical, thoracic, lumbar or midline bony tenderness. Normal inspection. NEURO: Alert, awake and able to say more words and names of family members. Dense right hemiplegia noted. Purposeful movements noted in the left upper and lower extremities noted.. no signs of meningeal irritation noted. PSYCHIATRIC: normal mood and affect. Objective Labs 03/19/24 04:33 03/19/24 04:33 Labs: Laboratory Results - last 24 hr 03/19/24 04:33 WBC 7.8 RBC 4.06 Hgb 13.2 Hct 38.4 MCV 95 MCH 32.5 MCHC 34.4 RDW Std Deviation 52.6 H Plt Count 302 Neut % (Auto) 64 Lymph % (Auto) 22 [place] % (Auto) 7 Eos % (Auto) 2 Baso % (Auto) 0 Neut # (Auto) 5.0 Lymph # (Auto) 1.7 [place] # (Auto) 0.6 Eos # (Auto) 0.1 Baso # (Auto) 0.0 Immature Gran # (Auto) 0.34 H Absolute Nucleated RBC 0.00 Immature Gran % 4 H Nucleated RBC % 0 Sodium 135 L Potassium 4.2 Chloride 101 Carbon Dioxide 28.4 Anion Gap 6 L BUN 19 Creatinine 0.4 L Estim Creat Clear Calc 119.8 eGFR > 60 BUN/Creatinine Ratio 48 H Glucose 91 Calculated Osmolality 272 L Calcium 10.1 Corrected Calcium 10.4 H Magnesium 2.4 Total Bilirubin 0.6 AST 16 ALT 39 Alkaline Phosphatase 92 Total Protein 6.2 Albumin 3.6 Globulin 2.6 Albumin/Globulin Ratio 1.4 Assessment & Plan Assessment and plan (1) Abnormal involuntary movements: Status: Resolved Assessment and plan: 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 Hyponatremia is commonly associated with it. csf showed lymphocytic pleocytosis and elevated protein and low glucose still. FU with serum and CSF for autoimmune encephalitis panel: specifically: VGKC and LGI1 ab Completed IV Solu-Medrol for 5 days and 5 days of oral prednisone taper As there is significant improvement in mental status and focal dystonic movements, will hold off on trial of IVIG therapy for now. As there is no improvement in right-sided motor function, she would need inpatient rehab, she is waiting for placement (2) Acute right hemiparesis: Status: Acute Assessment and plan: MRI brain showed multiple periventricular white matter changes suspicious for demyelination. Along with acute infarction involving the left basal ganglia. MRV: Limited study from motion Echocardiogram: Normal study CSF for MS panel: only oligoclonal bands positive. Follow-up with the CSF analysis for autoimmune encephalitis panel Continue with aspirin 81 mg a day Continue with PT/OT (3) Aphasia: Status: Acute Assessment and plan: Secondary to recent ? ischemic event Continue with speech therapy noted some improvement gradually (4) Recent cerebrovascular accident: Status: Chronic Assessment and plan: With new onset right-sided weakness and aphasia Continue with aspirin (5) Essential (primary) hypertension: Status: Acute Assessment and plan: Continue with the blood pressure control (6) Chronic migraine: Status: Chronic Assessment and plan: By history, stable now. (7) Coccidioidomycosis meningitis: Status: Acute Assessment and plan: CSF findings: Consistent with cocci meningitis : Cell count, protein and glucose with serology continue with the Diflucan for life with close monitoring of liver enzymes.
[2024-03-21 07:08] LABS: Osmolality, Urine* 206 mOsm/kg (50-1200)
== END 2024-03-19 17:07 | disposition skilled nursing facility (03) | DRG 64 ==
LOC: SERX 18:54 → SERHOLD 21:27 → S2NX 22:47 → S3SX 03-02 06:11
PROVIDERS: Emergency Medicine; Internal Medicine Infectious Disease; Psychiatry & Neurology Neurology; Student in an Organized Health Care Education/Training Program; Admitting Provider Internal Medicine; Emergency Provider Emergency Medicine; Visit Provider Internal Medicine
DX: I63.89 Other cerebral infarction (principal); B38.4 Coccidioidomycosis meningitis; G04.81 Other encephalitis and encephalomyelitis; G37.9 Demyelinating disease of central nervous system, unspecified; G81.91 Hemiplegia, unspecified affecting right dominant side; E87.1 Hypo-osmolality and hyponatremia; R47.01 Aphasia; R29.810 Facial weakness; G43.909 Migraine, unspecified, not intractable, without status migrainosus; E78.5 Hyperlipidemia, unspecified; I10 Essential (primary) hypertension; M79.7 Fibromyalgia; R29.718 NIHSS score 18; R91.1 Solitary pulmonary nodule; E87.6 Hypokalemia; B96.81 Helicobacter pylori [H. pylori] as the cause of diseases classified elsewhere
CPT/HCPCS: 36415; 70450; 70496; 70498; 70551; 70553; 80048; 80053; 80061; 80307; 81001; 81241; 82140; 82570; 82607; 82746; 82945; 83036; 83090; 83519; 83735; 83873; 83916; 83935; 84157; 84207; 84300; 84439; 84443; 84484; 84703; 85025; 85302; 85303; 85305; 85306; 85384; 85610; 85652; 85730; 86038; 86039; 86052; 86140; 86171; 86255; 86341; 86403; 86480; 86592; 86703; 86780; 86788; 86789; 86803; 87040; 87070; 87081; 87086; 87205; 87498; 87530; 89051; 92507; 92523; 92526; 92610; 93005; 93306; 95816; 97162; 99291; A4649; A9579; J0133; J0290; J0696; J1100; J1450; J1650; J2919; J3370; J3411; J3475; J3480; J7030; J7050; J7512; Q9967; A9270

== ENCOUNTER 2024-05-04 17:24 | Inpatient (IN) | payer BC, SELFPAY ==
[2024-05-04] VITALS (14 sets, daily range): BP systolic 122–159; BP diastolic 63–106; PULSE 105–131; RESP 15–98; TEMP 37.8–38.9; O2SAT 94–97
--- NOTE | 2024-05-04 17:33 | EKG_ITS ---
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
--- NOTE | 2024-05-04 17:34 | XR_ITS ---
Examination: AP chest single view Technique one AP portable upright chest single view Exam date and time: May 04, 2024 1844 hrs. Indications: Sepsis today. Findings: Normal heart size. Lungs are clear. The osseous structures are intact Impression: No pneumonia identified
--- NOTE | 2024-05-04 17:36 | EDNOTE_ITS ---
ED General RME/HPI General Chief complaint: Flu Like Symptoms Stated complaint: FLU LIKE SYMPTOMS Time Seen by Provider: 05/04/24 17:33 Arrival date/time: 05/04/24 17:24 RME / HPI RME / HPI narrative: 58-year-old female patient with significant history of hypertension CVA, with right-sided paralysis, nonverbal, hyperlipidemia, fibromyalgia, migraines, was sent to us from [facility] term for evaluation regarding fever. Patient apparently was noted to have fever, tachycardia, onset of symptoms today. No other pertinent information can be extracted at this time. Patient was noted to be nonverbal, nonambulatory. Sepsis alert was initiated right away. Related Data Home Medications ?Medication ?Instructions ?Recorded ?Confirmed acetaminophen 500 mg tablet 500 mg PO [id number] PRN Pain 02/01/24 05/04/24 duloxetine 30 mg capsule,delayed 30 mg PO QDAY 02/01/24 05/04/24 release meclizine 25 mg tablet 25 mg PO Q12H PRN Dizziness 02/01/24 05/04/24 aspirin 81 mg tablet,delayed 81 mg PO DAILY 02/29/24 05/04/24 release clopidogrel 75 mg tablet (Plavix) 75 mg PO QDAY 02/29/24 05/04/24 bisacodyl 10 mg rectal suppository 10 mg OR Q72H PRN Constipation 05/04/24 05/04/24 (Dulcolax (bisacodyl)) guaifenesin 100 mg/5 mL oral syrup 300 mg PO Q6H PRN Cough 05/04/24 05/04/24 lisinopril 10 mg tablet 10 mg PO QDAY 05/04/24 05/04/24 magnesium hydroxide 400 mg/5 mL 15 ml PO Q72H PRN Constipation 05/04/24 05/04/24 oral suspension (Milk of Magnesia) ondansetron HCl 4 mg tablet 4 mg PO Q6H PRN Nausea And Vomiting 05/04/24 05/04/24 sennosides 8.6 mg tablet (senna) 8.6 mg PO QDAY PRN Constipation 05/04/24 05/04/24 sodium phosphates 19 gram-7 118 ml OR Q72H 05/04/24 05/04/24 gram/118 mL enema (Fleet Enema) Previous Rx's ?Medication ?Instructions ?Recorded fluconazole 200 mg tablet 800 mg (4 x 200 mg) PO QDAY 30 03/16/24 days #120 tabs Allergies Allergy/AdvReac Type Severity Reaction Status Date / Time No Known Allergies Allergy Verified 05/04/24 18:19 Review of Systems Review of Systems Narrative Review of Systems: Review of system reviewed and within normal limits except mentioned in HPI ED Exam Narrative Physical exam: VITAL SIGNS: Reviewed. GENERAL APPEARANCE: Alert and good eye contact, nonverbal, does not follows commands, no acute distress, febrile HEAD AND FACE: Non-traumatic. ENT: PERRL, pink conjunctivitis, eyelid no trauma, Mucous membrane moist. NECK: Supple, nontender, no nuchal rigidity. CHEST: No tenderness, no crepitus, no paradoxical movement, no retractions. LUNGS: Clear, well ventilated, symmetric, no rales, no wheezing, no ronchi, no stridor, good breath sounds bilaterally. HEART: Tachycardia, no murmur, no gallops. ABDOMEN: Soft, positive bowel sounds, nondistended, no guarding, nontender, no rebound, no masses, RECTAL: Deferred. GENITAL: Deferred. NEUROLOGICAL: Gross motor function intact sensory function intact, Appropriate for age. MUSCULOSKELETAL: low back nontender, full range of motion. EXTREMITIES: Nontender, full range of motion. SKIN: Color pink, dry, no rash, no lacerations, no abrasions, no contusions. LYMPHATICS: Deferred. 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 START 00 Care 05/04/24 17:33 Active Continuous Pulse Oximetry STAT Care 05/04/24 17:33 Completed Decision to Admit X1 Care 05/04/24 21:59 Completed EKG (ED ONLY) *Do not use* NOW Care 05/04/24 17:33 Completed In and Out Catheter X1PRN Care 05/04/24 17:33 Completed Insert IV NOW Care 05/04/24 17:33 Completed NPO STAT Care 05/04/24 17:33 Active Strict Intake and Output Routine Care 05/04/24 17:33 Ordered EKG (ED Only) Stat Exams 05/04/24 17:33 Draft XR chest 1V SEPSIS PROTOCOL Stat Exams 05/04/24 17:34 Completed B-Type Natriuretic Peptide Stat Lab 05/04/24 18:03 Completed Blood Culture (Lab) Stat Lab 05/04/24 18:03 Received CBC Stat Lab 05/04/24 18:03 Completed Comprehensive Metabolic Panel Stat Lab 05/04/24 18:03 Completed LDH (Lactate Dehydrogenase) Stat Lab 05/04/24 18:03 Completed Lactate (Lactic Acid) Stat Lab 05/04/24 18:03 Completed Lipase Stat Lab 05/04/24 18:03 Completed Magnesium Stat Lab 05/04/24 18:03 Completed Partial Thromboplastin Time Stat Lab 05/04/24 18:03 Completed Phosphorous Stat Lab 05/04/24 18:03 Completed Procalcitonin Stat Lab 05/04/24 18:03 Completed Prothrombin Time with INR Stat Lab 05/04/24 18:03 Completed Troponin I Stat Lab 05/04/24 18:03 Completed Urinalysis Stat Lab 05/04/24 19:59 Completed Urine Culture Stat Lab 05/04/24 19:59 Received Acetaminophen Tab [Tylenol ES Tab] Med 05/04/24 17:33 Discontinued 1,000 mg PO X1 ONE KCL 10% Liq UDC 15 ML Med 05/04/24 21:41 Discontinued 40 meq PO X1 ONE Sodium Chloride 0.9% 1000 ml [Ns] 1,000 ml Med 05/04/24 18:14 Discontinued IV 999 mls/hr cefTRIAXone/D5w 1gm IV premix [Rocephin/D5w 1gm IV Med 05/04/24 17:34 Discontinued premix] 50 ml IV X1 Oxygen Delivery NOW RT 05/04/24 17:33 Active Vital Signs Vital signs: Vital Signs Pulse Rate 126 H 05/04/24 18:10 Respiratory Rate 20 05/04/24 18:10 Blood Pressure 159/106 H 05/04/24 18:10 Pulse Oximetry (%) 97 05/04/24 18:10 [facility] Patient data External records reviewed:: [facility] previous records and EMS form Clinical information provided by:: EMS Social determinants that could affect healthcare access:: none Patient has the following chronic illnesses:: CVA, nonverbal, hypertension, viral encephalopathy, chronic debility How is presenting disease/condition affected by chronic disease/condition?: e xacerbated by Evaluation data The following diagnostics were reviewed and interpreted by me:: lab results, radiology exam(s) and EKG tracing(s) Lab and/or radiology exams considered but not ordered:: None Interpretation Summary: Laboratory workup all came back unremarkable including urine which is normal also negative for RSV. Negative for strep negative for COVID-19 and influenza. I personally reviewed and interpreted the x-ray of this patient. There is no acute abnormalities found, no infiltrates no pneumothorax no hemothorax normal chest x-ray. Review of other structures was without significant abnormal findings also. I additionally reviewed the radiologist report and agree with the interpretation. EKG as interpreted showed sinus tachycardia, ventricular rate of 131 bpm, no ST segment elevation depression noted. Medications Medications considered but not ordered:: None Medication administrations:: Medication Administration History Acetaminophen (Acetaminophen 325 Mg Tablet) 650 mg PO Q6H PRN PRN Reason: PAIN OR FEVER > 101 Stop: 06/03/24 22:53 Aspirin (Aspirin Ec 81 Mg Tabec) 81 mg PO DAILY [facility] Stop: 06/04/24 08:59 Last Admin: 05/05/24 09:29 Dose: 81 mg Documented By: CHELI Clopidogrel Bisulfate (Clopidogrel Bisulfate 75 Mg Tablet) 75 mg PO QDAY [facility] Stop: 06/04/24 08:59 Last Admin: 05/05/24 09:29 Dose: 75 mg Documented By: CHELI Duloxetine HCl (Duloxetine Hcl 30 Mg Capsule) 30 mg PO QDAY [facility] Stop: 06/04/24 08:59 Last Admin: 05/05/24 09:29 Dose: 30 mg Documented By: CHELI Fluconazole (Fluconazole 100 Mg Tablet) 800 mg PO QDAY [facility] Stop: 05/12/24 08:59 Last Admin: 05/05/24 09:28 Dose: 800 mg Documented By: CHELI Heparin Sodium (Porcine) (Heparin Sod Inj 5000 Unit/Ml Vial) 5,000 unit SC Q12HR [facility] Stop: 05/18/24 22:59 Last Admin: 05/05/24 09:33 Dose: 5,000 unit Documented By: CHELI Co-signed By: WADE Admin: 05/05/24 01:10 Dose: 5,000 unit Documented By: SERGIO Co-signed By: OBED Sodium Chloride (Ns) 1,000 mls @ 75 mls/hr IV .[id number] [facility] Stop: 06/03/24 22:59 Last Admin: 05/05/24 01:07 Dose: 75 mls/hr Documented By: SERGIO Cefepime HCl 2 gm/ Sodium (Chloride) 50 mls @ 100 mls/hr IV Q8HR [facility] Stop: 05/12/24 13:59 Doxycycline Hyclate 100 mg/ (Sodium Chloride) 100 mls @ 100 mls/hr IV BID [facility]OGER Stop: 05/12/24 08:59 Last Admin: 05/05/24 09:29 Dose: 100 mls/hr Documented By: CHELI Potassium Phosphate 22.5 mmol/ (Sodium Chloride) 507.5 mls @ 82.778 mls/hr IV X1 ONE Stop: 05/05/24 14:12 Last Admin: 05/05/24 10:41 Dose: 82.778 mls/hr Documented By: CHELI Comments: Given after doxycycline. Pt has one IV Lisinopril (Lisinopril 20 Mg Tablet) 10 mg PO QDAY [facility] Stop: 06/04/24 08:59 Magnesium Hydroxide (Milk Of Magnesia Susp 30 Ml Udc) 30 ml PO QDAY PRN; Protocol PRN Reason: CONSTIPATION Stop: 06/04/24 08:06 Meclizine HCl (Meclizine Hcl 25 Mg Tablet) 25 mg PO Q12H PRN PRN Reason: Dizziness Stop: 06/03/24 23:07 Sennosides (Sennosides Syrup 8.8 Mg/5 Ml Udc) 8.8 mg PO QDAY PRN; Protocol PRN Reason: CONSTIPATION Stop: 06/04/24 08:06 Discontinued Medications Acetaminophen (Acetaminophen 500 Mg Tablet) 1,000 mg PO X1 ONE Stop: 05/04/24 17:34 Last Admin: 05/04/24 18:34 Dose: 1,000 mg Documented By: ANEL Ceftriaxone Sodium/Dextrose (Rocephin/D5w 1gm Iv Premix) 50 mls @ 100 mls/hr IV X1 ONE Stop: 05/04/24 18:03 Last Infusion: 05/04/24 19:23 Dose: Infused Documented By: Admin: 05/04/24 18:34 Dose: 100 mls/hr Documented By: ANEL Sodium Chloride (Ns) 1,000 mls @ 999 mls/hr IV .Q1H1M ONE Stop: 05/04/24 19:14 Last Infusion: 05/04/24 19:30 Dose: Infused Documented By: Admin: 05/04/24 18:34 Dose: 999 mls/hr Documented By: ANEL Potassium Phosphate (Pot Phos 15 Mmol In Ns 250 Ml) 15 mmol in 250 mls @ 62.5 mls/hr IV X1 ONE Stop: 05/05/24 03:10 Last Admin: 05/05/24 01:12 Dose: Not Given Documented By: SERGIO Non-Admin Reason: Cancelled by Provider Doxycycline Hyclate 100 mg/ (Sodium Chloride) 100 mls @ 100 mls/hr IV X1 ONE Stop: 05/05/24 00:29 Last Admin: 05/05/24 01:08 Dose: 100 mls/hr Documented By: SERGIO Cefepime HCl 2 gm/ Sodium (Chloride) 50 mls @ 100 mls/hr IV X1 ONE Stop: 05/05/24 05:29 Last Admin: 05/05/24 05:17 Dose: 100 mls/hr Documented By: BRETT Lisinopril (Lisinopril 2.5 Mg Tablet) 10 mg PO X1 ONE Stop: 05/05/24 05:00 Last Admin: 05/05/24 05:17 Dose: 10 mg Documented By: BRETT Comments: Potassium Chloride (Potassium Chloride 10% 20 Meq/15 Ml Udc) 40 meq PO X1 ONE Stop: 05/04/24 21:42 Last Admin: 05/04/24 21:52 Dose: 40 meq Documented By: REYES Potassium Phos/Sodium Phos ([facility] 1 Packet (1.5 Gm)) 1 packet PO X1 ONE Stop: 05/04/24 23:28 Last Admin: 05/05/24 02:48 Dose: 1 packet Documented By: BRETT Ceftriaxone IV, potassium replacement, IV fluids and Tylenol Consultations Consultation(s) initiated? (list below): No Diagnosis Differential Diagnosis ED Complaint MDM: Sepsis, UTI, pneumonia chronic debility viral encephalitis Most likely diagnosis given after review of the tests above:: Sepsis Admission Indicated Admission indicated?: indicated Explain why admission is indicated or not indicated:: For further management Admission Request Was there a request for admission?: Yes Admission Attestation Admission request attestation: Discussed case with [ Dr Harvey] from Hospitalist service regarding admission. Discussed patients ED course, exam findings, labs, and radiology results. The Hospitalist [agrees] to accept the patient for admission. Disposition Plan Disposition Plan: Admit Medical Decision Making MDM Narrative MDM Narrative: 58-year-old female patient with significant history of hypertension CVA, with right-sided paralysis, nonverbal, was sent to us from long term for evaluation regarding fever. Patient apparently was noted to have fever, tachycardia, onset of symptoms today. No other pertinent information can be extracted at this time. Patient was noted to be nonverbal, nonambulatory. Sepsis alert was initiated right away. Patient received IV fluids, Tylenol, potassium replacement, and ceftriaxone IV initially. Workup showed no identifiable source of sepsis at this time. Discussed the case with hospitalist, who admitted the patient, thank you Differential Diagnosis Differential Diagnosis: Sepsis, UTI, pneumonia chronic debility viral encephalitis Lab Data 05/05/24 04:25 05/05/24 04:25 Labs: Lab Results 05/04/24 05/04/24 Range/Units 18:03 19:59 WBC 11.5 H (3.6-11.0) Thou/mm3 RBC 4.23 (4.00-5.20) Miln/mm3 Hgb 13.6 (12.0-16.0) g/dL Hct 39.9 (36.0-46.0) % MCV 94 (80-100) fL MCH 32.2 (25.0-35.0) pg MCHC 34.1 (31.0-37.0) g/dl RDW Std Deviation 48.8 H (36.4-46.3) fL Plt Count 441 H (140-440) Thou/mm3 Neut % (Auto) 66 (37-80) % Lymph % (Auto) 19 (10-50) % Angelina % (Auto) 10 (0-12) % Eos % (Auto) 4 (0-10) % Baso % (Auto) 1 (0-2.5) % Neut # (Auto) 7.7 (1.8-7.7) Thou/mm3 Lymph # (Auto) 2.1 (1.0-4.8) Thou/mm3 Angelina # (Auto) 1.2 H (0.0-0.8) Thou/mm3 Eos # (Auto) 0.4 (0.0-0.5) Thou/mm3 Baso # (Auto) 0.1 (0.0-0.2) Thou/mm3 Immature Gran # (Auto) 0.10 H (0.00-0.00) Thou/mm3 Absolute Nucleated RBC 0.00 (0.00-0.00) Thou/mm3 Immature Gran % 1 H (0-0) % Nucleated RBC % 0 (0) /100 WBC PT 11.5 (9.0-12.2) Seconds INR 1.1 (0.9-1.3) APTT 24.2 (22.0-36.0) Seconds Sodium 143 (136-145) mMol/L Potassium 3.1 L (3.4-5.1) mMol/L Chloride 103 (98-107) mMol/L Carbon Dioxide 29.5 (20.0-31.0) mMol/L Anion Gap 11 (7-16) BUN 11 (9-23) mg/dL Creatinine 0.5 L (0.6-1.3) mg/dL Estim Creat Clear Calc Not Performed. eGFR > 60 (60 - ) See Note BUN/Creatinine Ratio 22 H (12-20) Ratio Glucose 120 H (74-106) mg/dL Calculated Osmolality 285 (275-295) Lactic Acid 1.9 (0.4-2.0) mMol/L Calcium 10.6 (8.3-10.6) mg/dL Corrected Calcium 10.6 H (8.5-10.1) mg/dL Phosphorus 2.0 L (2.4-5.1) mg/dL Magnesium 1.7 (1.6-2.6) mg/dL Total Bilirubin 0.5 (0.3-1.2) mg/dL AST 19 (0-34) U/L ALT 29 (10-49) U/L Alkaline Phosphatase 101 (46-116) U/L Lactate Dehydrogenase 224 (120-246) U/L Troponin I < 0.020 (0.0-0.045) ng/mL B-Natriuretic Peptide 92 (0-100) pg/mL Total Protein 6.9 (5.7-8.2) gm/dL Albumin 4.3 (3.5-5.0) gm/dL Globulin 2.6 (2.3-3.5) gm/dL Albumin/Globulin Ratio 1.7 (1.2-2.2) Lipase 31 (12-53) U/L Procalcitonin 0.13 (0.0-0.49) ng/ml Ur Collection Type Clean Catch Urine Color Yellow (Lt Yel-Yel) Urine Clarity Clear (Clear/Hazy) Urine pH 7.5 H (5.0-7.0) Ur Specific [place] 1.017 (1.001-1.035) Urine Protein Trace (Neg - Trace) Urine Glucose (UA) Negative (Negative) Urine Ketones Trace (Negative) Urine Blood Negative (Negative) Urine Nitrite Negative (Negative) Urine Bilirubin Negative (Negative) Urine Urobilinogen (Auto) 4.0 (0.0-1.0) mg/dL Ur Leukocyte Esterase Negative (Negative) Urine RBC 1 (0-3) /hpf Urine WBC 3 (0-5) /hpf Ur Squamous Epith Cells 0 (0-5) /hpf Urine Bacteria None (None) Discharge Plan Plan Patient Disposition: Admit Acute Care w/in Hospital Problem List Clinical Impression: Sepsis
[2024-05-04 18:31] LABS: Lactate (Lactic Acid) 1.9 mMol/L (0.4-2.0)
[2024-05-04] MEDS: cefTRIAXone/D5w 1gm IV premix 50 ML IV (18:34)
[2024-05-04] MEDS: SODIUM CHLORIDE 0.9% 1000 ML 1,000 ML 999 ML IV (18:34)
[2024-05-04] MEDS: ACETAMINOPHEN 500 MG TABLET 1000 MG PO (18:34)
[2024-05-04 18:46] LABS: Basophils # (Auto) 0.1 Thou/mm3 (0.0-0.2); Basophils % (Auto) 1 % (0-2.5); Eosinophils # (Auto) 0.4 Thou/mm3 (0.0-0.5); Eosinophils % (Auto) 4 % (0-10); Hematocrit 39.9 % (36.0-46.0); Hemoglobin 13.6 g/dL (12.0-16.0); Immature Granulocytes % (Auto) 1 % (0-0); Lymphocytes # (Auto) 2.1 Thou/mm3 (1.0-4.8); Lymphocytes % (Auto) 19 % (10-50); Mean Corpuscular HGB Conc 34.1 g/dl (31.0-37.0); Mean Corpuscular Hemoglobin 32.2 pg (25.0-35.0); Mean Corpuscular Volume 94 fL (80-100); Monocytes # (Auto) 1.2 Thou/mm3 (0.0-0.8); Monocytes % (Auto) 10 % (0-12); Neutrophils # (Auto) 7.7 Thou/mm3 (1.8-7.7); Neutrophils % (Auto) 66 % (37-80); Nucleated Red Blood Cell % 0 /100 WBC (0); Platelet Count 441 Thou/mm3 (140-440); RDW Standard Deviation 48.8 fL (36.4-46.3); Red Blood Count 4.23 Miln/mm3 (4.00-5.20); White Blood Count 11.5 Thou/mm3 (3.6-11.0)
[2024-05-04 18:52] LABS: B-Type Natriuretic Peptide 92 pg/mL (0-100)
[2024-05-04 18:53] LABS: INR 1.1 (0.9-1.3); Partial Thromboplastin Time 24.2 Seconds (22.0-36.0); Prothrombin Time 11.5 Seconds (9.0-12.2)
[2024-05-04 19:02] LABS: Alanine Aminotransferase 29 U/L (10-49); Albumin, Serum 4.3 gm/dL (3.5-5.0); Albumin/Globulin Ratio 1.7 (1.2-2.2); Alkaline Phosphatase 101 U/L (46-116); Anion Gap 11 (7-16); Aspartate Amino Transferase 19 U/L (0-34); BUN/Creatinine Ratio 22 Ratio (12-20); Bilirubin,Total 0.5 mg/dL (0.3-1.2); Blood Urea Nitrogen 11 mg/dL (9-23); Calcium 10.6 mg/dL (8.3-10.6); Calcium (Corrected) 10.6 mg/dL (8.5-10.1); Carbon Dioxide 29.5 mMol/L (20.0-31.0); Chloride 103 mMol/L (98-107); Creatinine (Component) 0.5 mg/dL (0.6-1.3); Globulin 2.6 gm/dL (2.3-3.5); Glucose 120 mg/dL (74-106); LDH (Lactate Dehydrogenase) 224 U/L (120-246); Lipase 31 U/L (12-53); Magnesium 1.7 mg/dL (1.6-2.6); Osmolality,Calculated 285 (275-295); Potassium 3.1 mMol/L (3.4-5.1); Procalcitonin 0.13 ng/ml (0.0-0.49); Sodium 143 mMol/L (136-145); Total Protein 6.9 gm/dL (5.7-8.2); Troponin I < 0.020 ng/mL (0.0-0.045); eGFR > 60 See Note
[2024-05-04 20:09] LABS: Collection Type, Urine Clean Catch; Squamous Epithelial Cell,Urine 0 /hpf (0-5)
[2024-05-04 20:19] LABS: Bilirubin,Urine Negative (Negative); Blood,Urine Negative (Negative); Clarity,Urine Clear (Clear/Hazy); Color,Urine Yellow (Lt Yel-Yel); Glucose, Urine Negative (Negative); Ketones,Urine Trace (Negative); Leukocyte Esterase,Urine Negative (Negative); Nitrite,Urine Negative (Negative); PH,Urine 7.5 (5.0-7.0); Protein,Urine Trace (Neg - Trace); RBC,Urine 1 /hpf (0-3); Specific Gravity,Urine 1.017 (1.001-1.035); WBC,Urine 3 /hpf (0-5)
[2024-05-04] MEDS: POTASSIUM CHLORIDE 10% 20 MEQ/15 ML UDC 40 MEQ PO (21:52)
--- NOTE | 2024-05-04 23:11 | XR_ITS ---
Examination: CT abdomen with intravenous contrast CT pelvis with intravenous contrast 2-D coronal reconstructions 2-D sagittal reconstructions Date and time of exam:May 05, 2024 12 0 7:00 AM Indications: Sepsis abdominal pain today CTDI: vol (mGy) 7.92 DLP: (mGycm) 393 Technique: Multiple axial sections of the abdomen and pelvis have been obtained. 64 slice high-resolution scanner used. 3 mm axial sections have been obtained, post intravenous injection 60 cc [id number] 2-D sagittal, coronal reconstructions obtained. Low dose protocols were performed. One or more of the following dose reduction techniques were used; automated exposure control, adjustment of the mA and/or KV according to patient size, use of iterative reconstruction technique. Findings: No focal liver or splenic lesions No definite gallstones Spleen is not enlarged No pancreatic mass No renal or ureteral calculi, no hydronephrosis Aorta normal size Large amounts of stool throughout the colon Normal appendix No diverticulitis Bladder contracted around the urinary Hedrick gallbladder Large amounts of stool in the rectum with thickening the rectal wall, proctitis pattern Moderate osteopenia Mild narrowing hip joints Impression: Large amounts of stool throughout the colon including in the rectal region Mild thickening of the rectal wall, proctitis would be included in the differential
--- NOTE | 2024-05-04 23:37 | PC.NURSE ---
Coral from [facility] called to get update on patient.
--- NOTE | 2024-05-04 23:40 | ESHP_ITS ---
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 On presentation patient was septic with temperature of 102.1, tachycardic with heart rate of 126, labs revealed leukocytosis, hypokalemia potassium of 3.1 and hypophosphatemia, urine was negative for UTI, EKG unremarkable, chest x-ray negative for PNA. Influenza and COVID is negative. Patient is nonverbal, son was at bedside and most of the history was taken per chart review and per son. Upon my evaluation, patient was hemodynamically stable, nonverbal, was not able to provide any history. In ED patient received bolus, ceftriaxone, Tylenol, potassium and was admitted for sepsis of unknown source. Past medical history as above Medication statin, lisinopril, aspirin, Plavix, meclizine, duloxetine PSH hysterectomy Family history positive for stroke and DM type II Social history has a history of smoking, negative for alcohol or illicit drug use, patient resides in detention. Review of Systems Review of Systems ROS Unobtainable: unobtainable due to medical condition Exam Vital Signs Temp Pulse Resp BP Pulse Ox O2 Del Method 100.0 F 109 H 20 148/87 H 96 Room Air 05/04/24 20:01 05/04/24 22:18 05/04/24 22:18 05/04/24 21:00 05/04/24 21:00 05/04/24 20:01 Narrative Exam Gen: Awake, appears stated age, in no acute distress,, nonverbal. HEENT:, anicteric conjunctivae, right-sided facial droop present CVS: normal S1 and S2. RRR. No M/R/G. Resp: CTA B/L. No rhonchi, rales, crackles or wheezing. Abd: soft, non-tender, non-distended. BS+ in all 4 quadrants. MSK: No cyanosis or edema, no visible joint swelling. Neuro: Limited due to medical condition, hemiplegia, hemiparesis on right side, making good eye contact Results: Labs 05/05/24 04:25 05/05/24 04:25 Labs: Short CBC 05/04/24 Range/Units 18:03 WBC 11.5 H (3.6-11.0) Thou/mm3 Hgb 13.6 (12.0-16.0) g/dL Hct 39.9 (36.0-46.0) % Plt Count 441 H (140-440) Thou/mm3 BMP 05/04/24 18:03 Sodium 143 Potassium 3.1 L Chloride 103 Carbon Dioxide 29.5 BUN 11 Creatinine 0.5 L Glucose 120 H Calcium 10.6 Cardiac Enzymes 05/04/24 Range/Units 18:03 Troponin I < 0.020 (0.0-0.045) ng/mL Liver Function 05/04/24 Range/Units 18:03 Total Bilirubin 0.5 (0.3-1.2) mg/dL AST 19 (0-34) U/L ALT 29 (10-49) U/L Alkaline Phosphatase 101 (46-116) U/L Albumin 4.3 (3.5-5.0) gm/dL Urine 05/04/24 Range/Units 19:59 Urine Color Yellow (Lt Yel-Yel) Urine Clarity Clear (Clear/Hazy) Urine pH 7.5 H (5.0-7.0) Ur Specific [place] 1.017 (1.001-1.035) Urine Protein Trace (Neg - Trace) Urine Glucose (UA) Negative (Negative) Quality Measures Quality Measures VTE prophylaxis Medications Home Medications and Allergies Home Medications ?Medication ?Instructions ?Recorded ?Confirmed ?Type acetaminophen 500 mg tablet 500 mg PO [id number] PRN Pain 02/01/24 05/04/24 History duloxetine 30 mg capsule,delayed 30 mg PO QDAY 02/01/24 05/04/24 History release meclizine 25 mg tablet 25 mg PO Q12H PRN Dizziness 02/01/24 05/04/24 History aspirin 81 mg tablet,delayed 81 mg PO DAILY 02/29/24 05/04/24 History release clopidogrel 75 mg tablet (Plavix) 75 mg PO QDAY 02/29/24 05/04/24 History bisacodyl 10 mg rectal suppository 10 mg FL Q72H PRN Constipation 05/04/24 05/04/24 History (Dulcolax (bisacodyl)) guaifenesin 100 mg/5 mL oral syrup 300 mg PO Q6H PRN Cough 05/04/24 05/04/24 History lisinopril 10 mg tablet 10 mg PO QDAY 05/04/24 05/04/24 History magnesium hydroxide 400 mg/5 mL 15 ml PO Q72H PRN Constipation 05/04/24 05/04/24 History oral suspension (Milk of Magnesia) ondansetron HCl 4 mg tablet 4 mg PO Q6H PRN Nausea And Vomiting 05/04/24 05/04/24 History sennosides 8.6 mg tablet (senna) 8.6 mg PO QDAY PRN Constipation 05/04/24 05/04/24 History sodium phosphates 19 gram-7 118 ml FL Q72H 05/04/24 05/04/24 History gram/118 mL enema (Fleet Enema) Allergies Allergy/AdvReac Type Severity Reaction Status Date / Time No Known Allergies Allergy Verified 05/04/24 18:19 Visit Medications Acetaminophen (Acetaminophen 325 Mg Tablet) 650 mg PO Q6H PRN PRN Reason: PAIN OR FEVER > 101 Stop: 06/03/24 22:53 Aspirin (Aspirin Ec 81 Mg Tabec) 81 mg PO DAILY [facility] Stop: 06/04/24 08:59 Clopidogrel Bisulfate (Clopidogrel Bisulfate 75 Mg Tablet) 75 mg PO QDAY [facility] Stop: 06/04/24 08:59 Duloxetine HCl (Duloxetine Hcl 30 Mg Capsule) 30 mg PO QDAY [facility] Stop: 06/04/24 08:59 Fluconazole (Fluconazole 100 Mg Tablet) 800 mg PO QDAY [facility] Stop: 05/12/24 08:59 Heparin Sodium (Porcine) (Heparin Sod Inj 5000 Unit/Ml Vial) 5,000 unit SC Q12HR [facility] Stop: 05/18/24 22:59 Sodium Chloride (Ns) 1,000 mls @ 75 mls/hr IV .[id number] [facility] Stop: 06/03/24 22:59 Cefepime HCl 2 gm/ Sodium (Chloride) 50 mls @ 100 mls/hr IV Q8HR [facility] Stop: 05/12/24 04:59 Doxycycline Hyclate 100 mg/ (Sodium Chloride) 100 mls @ 100 mls/hr IV BID [facility]ER Stop: 05/12/24 08:59 Doxycycline Hyclate 100 mg/ (Sodium Chloride) 100 mls @ 100 mls/hr IV X1 ONE Stop: 05/05/24 00:29 Cefepime HCl 2 gm/ Sodium (Chloride) 50 mls @ 100 mls/hr IV X1 ONE Stop: 05/05/24 05:29 Lisinopril (Lisinopril 20 Mg Tablet) 10 mg PO QDAY [facility] Stop: 06/04/24 08:59 Meclizine HCl (Meclizine Hcl 25 Mg Tablet) 25 mg PO Q12H PRN PRN Reason: Dizziness Stop: 06/03/24 23:07 Discontinued Medications Acetaminophen (Acetaminophen 500 Mg Tablet) 1,000 mg PO X1 ONE Stop: 05/04/24 17:34 Last Admin: 05/04/24 18:34 Dose: 1,000 mg Ceftriaxone Sodium/Dextrose (Rocephin/D5w 1gm Iv Premix) 50 mls @ 100 mls/hr IV X1 ONE Stop: 05/04/24 18:03 Last Infusion: 05/04/24 19:23 Dose: Infused Sodium Chloride (Ns) 1,000 mls @ 999 mls/hr IV .Q1H1M ONE Stop: 05/04/24 19:14 Last Infusion: 05/04/24 19:30 Dose: Infused Potassium Phosphate (Pot Phos 15 Mmol In Ns 250 Ml) 15 mmol in 250 mls @ 62.5 mls/hr IV X1 ONE Stop: 05/05/24 03:10 Potassium Chloride (Potassium Chloride 10% 20 Meq/15 Ml Udc) 40 meq PO X1 ONE Stop: 05/04/24 21:42 Last Admin: 05/04/24 21:52 Dose: 40 meq Potassium Phos/Sodium Phos (Naph,[facility] Mbdb 1 Packet (1.5 Gm)) 1 packet PO X1 ONE Stop: 05/04/24 23:28 Assessment & Plan Plan 54-year-old female with 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 #Sepsis of unknown source Patient presented from SNF due to fever of 102.1, tachycardic with heart rate of 126, labs revealed leukocytosis of 11.5. Lactic acid and Pro-Ramesh is negative Patient met 3 out of 4 SIRS criteria Chest x-ray is negative for PNA UA is negative for UTI In ED patient received IVF, ABX -Obtain blood culture -Obtain urine culture -CT abdomen/pelvis with contrast -Continue IVF -Cefepime 2 g every 8 hours -Doxycycline 100 mg twice daily -MRSA screen -Rapid strep -Monospot #? Autoimmune encephalitis Per previous chart review, hospitalist team was consulted for autoimmune encephalitis, brain MRI showed prominent foci of increased signal in the white matter, demyelinating disease pattern. Repeat MRI with contrast demonstrated 17mm acute infarct of left basal ganglia. On February, autoimmune encephalitis panel VGKC and LGI1 antibody was sent, however I do not have report available in chart #Coccidioides meningitis -Continue fluconazole 800 daily -Consider neuroconsult #Electrolyte disbalance Potassium and phosphorus was replaced -Continue to monitor replace as needed #Hemiplegia and hemiparesis due to CVA on the right dominant side -Continue aspirin, atorvastatin and Plavix #History of hypertension #Hyperlipidemia #Fibromyalgia #Migraines -Continue home medications such as lisinopril, atorvastatin, duloxetine #10 mm pulmonary nodule Seen on the last CT -Follow-up outpatient, repeat [facility]: Heparin GI prophylaxis: None Diet: N.p.o. Lines: PIV CODE STATUS:Full code Patient care was discussed with attending physician Dr. Lilliana Harvey MD PGY-2 I have carefully reviewed this document. Due to imperfections in the voice software, there could be grammatical errors including phonetic/typographic errors. This in no way compromises the medical care the patient is receiving
[2024-05-05] VITALS (14 sets, daily range): BP systolic 138–163; BP diastolic 89–99; PULSE 90–108; RESP 13–98; TEMP 36.1–37.4; O2SAT 97–100; BMI 19.5
--- NOTE | 2024-05-05 00:59 | PRELIM_ITS ---
CT scan of the abdomen and pelvis with intravenous contrast (axial sections with sagittal and coronal reformats) May 05, 2024 0007 hoursClinical History: sepsisComparison: No prior study is availabl e for comparison. Findings:Bibasilar atelectasis is seen. The liver, gallbladder, pancreas, spleen, k idneys and adrenals are unremarkable.There is rectal fecal distension with rectal wall thickening. N o evidence of bowel obstruction. A moderate amount of fecal material is present in the colon. The tahira endix is within normal limits (images 64/127). There is no mesenteric or retroperitoneal adenopathy.T he urinary bladder is unremarkable. A Hedrick catheter is seen in the urinary bladder. There is no free fluid or free air. Mild degenerative changes are identified in the spine. Impression:Findings sugges tive of fecal impaction with proctitis. Recommend clinical correlation. Other findings as described haylie duncan. Report Electronically Signed By: Neel Ruth 05/05/2024 12:59:08 AM [EST]
[2024-05-05 01:00] LABS: Strep A Rapid Negative (Negative)
[2024-05-05] MEDS: SODIUM CHLORIDE 0.9% 1000 ML 1,000 ML 75 ML IV ×2 (01:07→17:09)
[2024-05-05] MEDS: DOXYCYCLINE INJ 100 MG in SODIUM CHLORIDE 0.9% (P) 100 ML IV ×3 (01:08→20:26)
[2024-05-05] MEDS: HEPARIN SOD INJ 5000 UNIT/ML VIAL SC ×3 (01:10→20:26)
--- NOTE | 2024-05-05 01:46 | PD.ADDHP ---
Addendum History & Physical Addendum Date of report being addended: 05/04/24 Narrative: Face to face evaluation was performed by me. I have personally seen and examined the patient. I discussed the assessment and plan with the entire medicine team. I reviewed available medical records, imaging studies, laboratory results. I agree with the above subjective data, objective findings, assessment and plan except as corrected by me or noted below Sepsis, present on admission, without septic shock due to below Bacterial pneumonia, suspect gram-negative bacilli and gram-positive cocci Possible autoimmune encephalitis Of note patient was hospitalized couple of months ago and had prolonged hospitalization. Patient was discharged to [facility], patient son is at bedside and states that patient was initially verbal until March and then she started to become less verbal and finally a few weeks ago she completely stopped talking. She cannot walk but she can move her extremities. Empiric broad-spectrum antibiotic with cefepime as well as add doxycycline for MRSA coverage for now. Obtain cultures, CT abdomen/pelvis.
[2024-05-05] MEDS: NAPH,KPH MBDB 1 PACKET (1.5 GM) PO (02:48)
[2024-05-05] MEDS: CEFEPIME INJ 2 GM in SODIUM CHLORIDE 0.9% 50 ML IV ×3 (05:17→21:29)
[2024-05-05] MEDS: Lisinopril 2.5 MG TABLET 10 MG PO (05:17)
[2024-05-05 05:19] LABS: Basophils # (Auto) 0.1 Thou/mm3 (0.0-0.2); Basophils % (Auto) 1 % (0-2.5); Eosinophils # (Auto) 0.8 Thou/mm3 (0.0-0.5); Eosinophils % (Auto) 9 % (0-10); Hematocrit 37.3 % (36.0-46.0); Hemoglobin 12.6 g/dL (12.0-16.0); Immature Granulocytes % (Auto) 1 % (0-0); Immature Granulocytes Auto 0.05 Thou/mm3 (0.00-0.00); Lymphocytes # (Auto) 1.8 Thou/mm3 (1.0-4.8); Lymphocytes % (Auto) 20 % (10-50); Mean Corpuscular HGB Conc 33.8 g/dl (31.0-37.0); Mean Corpuscular Hemoglobin 32.5 pg (25.0-35.0); Mean Corpuscular Volume 96 fL (80-100); Monocytes # (Auto) 0.7 Thou/mm3 (0.0-0.8); Monocytes % (Auto) 8 % (0-12); Neutrophils # (Auto) 5.4 Thou/mm3 (1.8-7.7); Neutrophils % (Auto) 61 % (37-80); Nucleated Red Blood Cell % 0 /100 WBC (0); Platelet Count 356 Thou/mm3 (140-440); RDW Standard Deviation 50.1 fL (36.4-46.3); Red Blood Count 3.88 Miln/mm3 (4.00-5.20); White Blood Count 8.8 Thou/mm3 (3.6-11.0)
--- NOTE | 2024-05-05 05:33 | PC.NURSE ---
Pt's BP 163/99, HR 102, Dr. Stratton was made aware, lisinopril 10 mg po ordered for pt. ok for pt to take po meds per [employer]Y CONSULTANT.
[2024-05-05 05:42] LABS: INR 1.1 (0.9-1.3); Prothrombin Time 11.8 Seconds (9.0-12.2)
[2024-05-05 06:28] LABS: Alanine Aminotransferase 24 U/L (10-49); Albumin, Serum 3.9 gm/dL (3.5-5.0); Albumin/Globulin Ratio 1.4 (1.2-2.2); Alkaline Phosphatase 92 U/L (46-116); Anion Gap 9 (7-16); Aspartate Amino Transferase 20 U/L (0-34); BUN/Creatinine Ratio 23 Ratio (12-20); Bilirubin,Total 0.6 mg/dL (0.3-1.2); Blood Urea Nitrogen 9 mg/dL (9-23); Calcium 10.1 mg/dL (8.3-10.6); Calcium (Corrected) 10.2 mg/dL (8.5-10.1); Carbon Dioxide 29.9 mMol/L (20.0-31.0); Cardiac Risk Estimate 4.1 RATIO (3.7-5.6); Chloride 109 mMol/L (98-107); Cholesterol 146 mg/dL (132-200); Creatinine (Component) 0.4 mg/dL (0.6-1.3); Estimated Creatinine Clearance 119.8 mL/min (>60); Globulin 2.7 gm/dL (2.3-3.5); Glucose 112 mg/dL (74-106); HDL Cholesterol 36 mg/dL (40-60); LDL Cholesterol,Calculated 76 mg/dL (0-130); Magnesium 1.8 mg/dL (1.6-2.6); Osmolality,Calculated 293 (275-295); Phosphorous 2.2 mg/dL (2.4-5.1); Potassium 3.5 mMol/L (3.4-5.1); Sodium 148 mMol/L (136-145); Total Protein 6.6 gm/dL (5.7-8.2); Triglycerides 168 mg/dL (30-150); eGFR > 60 See Note
[2024-05-05 06:49] LABS: Respiratory Syncytial Virus Ag Negative (Negative)
[2024-05-05] MEDS: FLUCONAZOLE 100 MG TABLET 800 MG PO (09:28)
[2024-05-05] MEDS: ASPIRIN EC 81 MG TABEC PO (09:29)
[2024-05-05] MEDS: CLOPIDOGREL BISULFATE 75 MG TABLET PO (09:29)
[2024-05-05] MEDS: DULoxetine HCL 30 MG CAPSULE PO (09:29)
[2024-05-05] MEDS: POTASSIUM PHOS 22.5 MMOL in SODIUM CHLORIDE 0.9% 500 ML 500 ML 82.778 MMOL IV (10:41)
[2024-05-05 11:31] LABS: Mono Screen Negative (Negative)
--- NOTE | 2024-05-05 13:13 | XR_ITS ---
Examination: Right knee 4 views Technique: AP oblique lateral axial right knee 4 views Exam date and time: May 05, 2024 1326 hrs. Indications: Knee swelling and pain this week. Findings: Severe osteopenia Moderate to advanced tricompartment osteoarthritis No patellar dislocation No definite knee effusion Impression: Moderate to advanced tricompartment osteoarthritis Suggest ultrasound soft tissue knee follow-up
--- NOTE | 2024-05-05 14:23 | ESPR_ITS ---
Documentation for date of: 05/05/24 Subjective Subjective Interval history: No overnight events. Patient seen and examined at bedside. Patient resting comfortably in bed. Patient nonverbal, does not appear to be in distress. Continue antibiotics. Continue workup for sepsis, left buttock ulcer as potential source. Exam Vital Signs Temp Pulse Resp BP Pulse Ox O2 Del Method 97.1 F 92 18 142/93 H 97 Room Air 05/05/24 12:00 05/05/24 12:00 05/05/24 12:00 05/05/24 12:00 05/05/24 12:00 05/05/24 12:00 Narrative Exam Gen: Awake, appears stated age, in no acute distress. HEENT:, anicteric conjunctivae, right-sided facial droop present CVS: normal S1 and S2. RRR. No M/R/G. Resp: CTA B/L. No rhonchi, rales, crackles or wheezing. Abd: soft, non-tender, non-distended. MSK: No cyanosis or edema. Some swelling of right knee without erythema or notable tenderness. Ulcer of left buttock. Neuro: Limited due to medical condition, hemiplegia, hemiparesis on right side, making good eye contact. Nonverbal. Objective Labs 05/05/24 04:25 05/05/24 04:25 Labs: Laboratory Results - last 24 hr 05/04/24 05/04/24 05/05/24 18:03 19:59 00:32 WBC 11.5 H RBC 4.23 Hgb 13.6 Hct 39.9 MCV 94 MCH 32.2 MCHC 34.1 RDW Std Deviation 48.8 H Plt Count 441 H Neut % (Auto) 66 Lymph % (Auto) 19 [place] % (Auto) 10 Eos % (Auto) 4 Baso % (Auto) 1 Neut # (Auto) 7.7 Lymph # (Auto) 2.1 [place] # (Auto) 1.2 H Eos # (Auto) 0.4 Baso # (Auto) 0.1 Immature Gran # (Auto) 0.10 H Absolute Nucleated RBC 0.00 Immature Gran % 1 H Nucleated RBC % 0 PT 11.5 INR 1.1 APTT 24.2 Sodium 143 Potassium 3.1 L Chloride 103 Carbon Dioxide 29.5 Anion Gap 11 BUN 11 Creatinine 0.5 L Estim Creat Clear Calc Not Performed. eGFR > 60 BUN/Creatinine Ratio 22 H Glucose 120 H Calculated Osmolality 285 Lactic Acid 1.9 Calcium 10.6 Corrected Calcium 10.6 H Phosphorus 2.0 L Magnesium 1.7 Total Bilirubin 0.5 AST 19 ALT 29 Alkaline Phosphatase 101 Lactate Dehydrogenase 224 Troponin I < 0.020 B-Natriuretic Peptide 92 Total Protein 6.9 Albumin 4.3 Globulin 2.6 Albumin/Globulin Ratio 1.7 Triglycerides Cholesterol LDL Cholesterol, Calc HDL Cholesterol Cholesterol/HDL Ratio Lipase 31 Procalcitonin 0.13 TSH Ur Collection Type Clean Catch Urine Color Yellow Urine Clarity Clear Urine pH 7.5 H Ur Specific [place] 1.017 Urine Protein Trace Urine Glucose (UA) Negative Urine Ketones Trace Urine Blood Negative Urine Nitrite Negative Urine Bilirubin Negative Urine Urobilinogen (Auto) 4.0 Ur Leukocyte Esterase Negative Urine RBC 1 Urine WBC 3 Ur Squamous Epith Cells 0 Urine Bacteria None Monoscreen RSV Rapid Group A Strep Rapid Negative 05/05/24 05/05/24 01:47 04:25 WBC 8.8 RBC 3.88 L Hgb 12.6 Hct 37.3 MCV 96 MCH 32.5 MCHC 33.8 RDW Std Deviation 50.1 H Plt Count 356 D Neut % (Auto) 61 Lymph % (Auto) 20 [place] % (Auto) 8 Eos % (Auto) 9 Baso % (Auto) 1 Neut # (Auto) 5.4 Lymph # (Auto) 1.8 [place] # (Auto) 0.7 Eos # (Auto) 0.8 H Baso # (Auto) 0.1 Immature Gran # (Auto) 0.05 H Absolute Nucleated RBC 0.00 Immature Gran % 1 H Nucleated RBC % 0 PT 11.8 INR 1.1 APTT 31.0 Sodium 148 H Potassium 3.5 Chloride 109 H Carbon Dioxide 29.9 Anion Gap 9 BUN 9 Creatinine 0.4 L Estim Creat Clear Calc 119.8 eGFR > 60 BUN/Creatinine Ratio 23 H Glucose 112 H Calculated Osmolality 293 Lactic Acid Calcium 10.1 Corrected Calcium 10.2 H Phosphorus 2.2 L Magnesium 1.8 Total Bilirubin 0.6 AST 20 ALT 24 Alkaline Phosphatase 92 Lactate Dehydrogenase Troponin I B-Natriuretic Peptide Total Protein 6.6 Albumin 3.9 Globulin 2.7 Albumin/Globulin Ratio 1.4 Triglycerides 168 H Cholesterol 146 LDL Cholesterol, Calc 76 HDL Cholesterol 36 L Cholesterol/HDL Ratio 4.1 Lipase Procalcitonin TSH 6.50 H Ur Collection Type Urine Color Urine Clarity Urine pH Ur Specific [place] Urine Protein Urine Glucose (UA) Urine Ketones Urine Blood Urine Nitrite Urine Bilirubin Urine Urobilinogen (Auto) Ur Leukocyte Esterase Urine RBC Urine WBC Ur Squamous Epith Cells Urine Bacteria Monoscreen Negative RSV Rapid Negative Group A Strep Rapid Quality Measures Quality Measures none Assessment & Plan Assessment Current Active Medications: Generic Name Dose Route Start Last Admin Trade Name Freq PRN Reason Stop Dose Admin Acetaminophen 650 mg 05/04/24 22:54 Acetaminophen 325 Mg Tablet PO 06/03/24 22:53 Q6H PRN PAIN OR FEVER > 101 Aspirin 81 mg 05/05/24 09:00 05/05/24 09:29 Aspirin Ec 81 Mg Tabec PO 06/04/24 08:59 81 mg DAILY ROGER Administration Clopidogrel Bisulfate 75 mg 05/05/24 09:00 05/05/24 09:29 Clopidogrel Bisulfate 75 Mg Tablet PO 06/04/24 08:59 75 mg QDAY ROGER Administration Duloxetine HCl 30 mg 05/05/24 09:00 05/05/24 09:29 Duloxetine Hcl 30 Mg Capsule PO 06/04/24 08:59 30 mg QDAY ROGER Administration Fluconazole 800 mg 05/05/24 09:00 05/05/24 09:28 Fluconazole 100 Mg Tablet PO 05/12/24 08:59 800 mg QDAY ROGER Administration Heparin Sodium (Porcine) 5,000 unit 05/04/24 23:00 05/05/24 09:33 Heparin Sod Inj 5000 Unit/Ml Vial SC 05/18/24 22:59 5,000 unit Q12HR ROGER Administration Sodium Chloride 1,000 mls @ 75 mls/hr 05/04/24 23:00 05/05/24 01:07 Ns IV 06/03/24 22:59 75 mls/hr .[id number] ROGER Administration Cefepime HCl 2 gm/ Sodium 50 mls @ 100 mls/hr 05/05/24 14:00 Chloride IV 05/12/24 13:59 Q8HR ROGER Doxycycline Hyclate 100 mg/ 100 mls @ 100 mls/hr 05/05/24 09:00 05/05/24 09:29 Sodium Chloride IV 05/12/24 08:59 100 mls/hr BID ROGER Administration Magnesium Hydroxide 30 ml 05/05/24 08:07 Milk Of Magnesia Susp 30 Ml Udc PO 06/04/24 08:06 QDAY PRN CONSTIPATION Protocol Meclizine HCl 25 mg 05/04/24 23:08 Meclizine Hcl 25 Mg Tablet PO 06/03/24 23:07 Q12H PRN Dizziness Sennosides 8.8 mg 05/05/24 08:07 Sennosides Syrup 8.8 Mg/5 Ml Udc PO 06/04/24 08:06 QDAY PRN CONSTIPATION Protocol Plan 54-year-old female with 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 #Sepsis of unknown source Patient presented from SNF due to fever of 102.1, tachycardic with heart rate of 126, labs revealed leukocytosis of 11.5. Lactic acid and Pro-Ramesh is negative Patient met 3 out of 4 SIRS criteria Chest x-ray is negative for PNA. UA is negative for UTI. Monospot, rapid strep, RSV negative. In ED patient received IVF, ABX. CT A/P showed large amount of stool, possible proctitis. -Follow-up blood and urine cultures -Continue IVF -Cefepime 2 g every 8 hours -Doxycycline 100 mg twice daily -MRSA screen #?Autoimmune encephalitis Per previous chart review, hospitalist team was consulted for autoimmune encephalitis, brain MRI showed prominent foci of increased signal in the white matter, demyelinating disease pattern. Repeat MRI with contrast demonstrated 17mm acute infarct of left basal ganglia. On February, autoimmune encephalitis panel VGKC and LGI1 antibody was sent, all negative -Consider neuroconsult #Coccidioides meningitis -Continue fluconazole 800 daily -Consider neuroconsult #Electrolyte disbalance Potassium and phosphorus was replaced -Continue to monitor, replace as needed #Hemiplegia and hemiparesis due to CVA on the right dominant side -Continue aspirin and Plavix #History of hypertension #Hyperlipidemia #Fibromyalgia #Migraines -Continue home medications: lisinopril, meclizine, duloxetine DVT prophylaxis: Heparin GI prophylaxis: Protonix Diet: Cardiac Lines: Peripheral IV Code status: Full code Plan of care discussed with senior resident Dr. Lawrence PGY-[address] Lamb. Devyn Andrews MD PGY-1 Senior Resident Attestation: I discussed with and supervised the merchandising internship physician involved in the care of this patient. I personally saw and examined the patient and discussed the assessment and plan with the entire medicine team, including my attending. I agree with the assessment and plan as documented above. - Patient's care was discussed with my attending physician. Fernando Lawrence MD Internal Medicine PGY-3 Attending Provider Attestation/Addendum I attest that I was physically present for the evaluation, physical examination, lab and imaging review of the patient with the residents. I discussed the case with the residents and agree with the findings and plans of care as documented above. Patient was admitted overnight for management of sepsis with unclear source. At bedside, patient appears comfortable, saturating well on room air. Family at bedside stated that patient does not talk and is unable to follow commands and requires help with daily activities at baseline. Noted to have pressure sores with an ulcer on left buttock. The family also mentioned about swelling on her right knee, on exam, appears mildly swollen without redness or elevated temperature. X-ray was obtained which only showed severe osteopenia and osteoarthritis but no effusions. Continues to be on IV antibiotics, WBC count improved compared to yesterday. Pending culture results. Garcia Lamb MD
--- NOTE | 2024-05-05 15:03 | PC.DIETICIAN ---
1. Recommend Bj BID for targeted nutrition and wound healing. 2. Recommend add Vitamin C 500mg BID daily, zinc 220mg, Multivitamin-Mineral daily to ensure adequate nutrient intake and promote wound healing. 3. Encourage PO intake 4. If intake is <50%, consider Ensure Plus ONS BID RD to remain available as requested or needed.
[2024-05-05] MEDS: BALSAM PERU/CASTOR OIL (Venelex) 60 GM TUBE TOP (23:16)
[2024-05-06] VITALS (11 sets, daily range): BP systolic 144–160; BP diastolic 80–116; PULSE 90–105; RESP 16–98; TEMP 36.1–36.9; O2SAT 95–99
[2024-05-06] MEDS: ACETAMINOPHEN 325 MG TABLET 650 MG PO (00:27)
--- NOTE | 2024-05-06 03:56 | PC.NURSE ---
Md Feldman made aware of BP 160/116, no new order made at this time.
[2024-05-06] MEDS: CEFEPIME INJ 2 GM in SODIUM CHLORIDE 0.9% 50 ML IV ×3 (05:09→21:16)
[2024-05-06 05:34] LABS: Basophils # (Auto) 0.1 Thou/mm3 (0.0-0.2); Basophils % (Auto) 1 % (0-2.5); Eosinophils # (Auto) 1.1 Thou/mm3 (0.0-0.5); Eosinophils % (Auto) 16 % (0-10); Hematocrit 36.5 % (36.0-46.0); Hemoglobin 12.5 g/dL (12.0-16.0); Immature Granulocytes % (Auto) 1 % (0-0); Immature Granulocytes Auto 0.04 Thou/mm3 (0.00-0.00); Lymphocytes # (Auto) 1.9 Thou/mm3 (1.0-4.8); Lymphocytes % (Auto) 26 % (10-50); Mean Corpuscular HGB Conc 34.2 g/dl (31.0-37.0); Mean Corpuscular Hemoglobin 32.6 pg (25.0-35.0); Mean Corpuscular Volume 95 fL (80-100); Monocytes # (Auto) 0.6 Thou/mm3 (0.0-0.8); Monocytes % (Auto) 8 % (0-12); Neutrophils # (Auto) 3.5 Thou/mm3 (1.8-7.7); Neutrophils % (Auto) 49 % (37-80); Nucleated Red Blood Cell % 0 /100 WBC (0); Platelet Count 351 Thou/mm3 (140-440); RDW Standard Deviation 48.5 fL (36.4-46.3); Red Blood Count 3.84 Miln/mm3 (4.00-5.20); White Blood Count 7.2 Thou/mm3 (3.6-11.0)
[2024-05-06 06:15] LABS: Alanine Aminotransferase 20 U/L (10-49); Albumin/Globulin Ratio 1.5 (1.2-2.2); Alkaline Phosphatase 90 U/L (46-116); Anion Gap 12 (7-16); Aspartate Amino Transferase 19 U/L (0-34); BUN/Creatinine Ratio 20 Ratio (12-20); Bilirubin,Total 0.6 mg/dL (0.3-1.2); Blood Urea Nitrogen 6 mg/dL (9-23); Calcium 9.8 mg/dL (8.3-10.6); Calcium (Corrected) 9.8 mg/dL (8.5-10.1); Carbon Dioxide 25.3 mMol/L (20.0-31.0); Chloride 107 mMol/L (98-107); Creatinine (Component) 0.3 mg/dL (0.6-1.3); Estimated Creatinine Clearance 159.7 mL/min (>60); Globulin 2.6 gm/dL (2.3-3.5); Glucose 90 mg/dL (74-106); Magnesium 1.5 mg/dL (1.6-2.6); Osmolality,Calculated 284 (275-295); Potassium 2.9 mMol/L (3.4-5.1); Sodium 144 mMol/L (136-145); Total Protein 6.6 gm/dL (5.7-8.2); eGFR > 60 See Note
[2024-05-06] MEDS: SODIUM CHLORIDE 0.9% 1000 ML 1,000 ML 75 ML IV ×2 (06:47→20:13)
[2024-05-06] MEDS: Lisinopril 2.5 MG TABLET 10 MG PO ×2 (08:05→08:18)
[2024-05-06] MEDS: DOXYCYCLINE INJ 100 MG in SODIUM CHLORIDE 0.9% (P) 100 ML IV ×2 (08:19→20:11)
[2024-05-06] MEDS: HEPARIN SOD INJ 5000 UNIT/ML VIAL SC ×2 (08:23→20:11)
--- NOTE | 2024-05-06 10:15 | CHAP ---
Patient was visited by the Spiritual Care Volunteer from whom they received communion. (Volunteer was in the hospital from 9:00-10:15)
[2024-05-06] MEDS: CLOPIDOGREL BISULFATE 75 MG TABLET PO (10:24)
[2024-05-06] MEDS: ASPIRIN EC 81 MG TABEC PO (10:24)
[2024-05-06] MEDS: FLUCONAZOLE 100 MG TABLET 800 MG PO (10:24)
[2024-05-06] MEDS: DULoxetine HCL 30 MG CAPSULE PO (10:25)
[2024-05-06] MEDS: Magnesium Sulfate 4 GM Ivpb 4 GM/50 ML BAG IV (10:30)
[2024-05-06] MEDS: POTASSIUM CHLORIDE 10% 20 MEQ/15 ML UDC 40 MEQ PO ×2 (10:30→13:51)
[2024-05-06] MEDS: Magnesium Sulfate 1 gm Ivpb 1 GM/100 ML BAG IV (13:03)
[2024-05-06 13:49] LABS: Potassium 3.4 mMol/L (3.4-5.1)
[2024-05-06] MEDS: MUPIROCIN OINT 2% 15 GM TUBE TOP ×2 (16:04→21:16)
--- NOTE | 2024-05-06 16:05 | ESPR_ITS ---
<Statement entered by Raciel Watkins MD - 05/06/24 16:07> Patient was seen and examined at the bedside this morning. Patient will be continued on cefepime fluconazole and doxycycline. Prelim blood cultures are growing negative. Patient was more alert and family was present at bedside reported the patient is more alert than yesterday. Most likely source of sepsis is left buttock ulcer. Neurology was curb sided as patient's family was requesting to consult however will wait for her recommendations. We increased lisinopril 20 mg now for high blood pressure. Electrolytes were repleted. All labs and orders were reviewed. I saw and examined the patient, and I agree with current management stated by Dr Saskia MD,PGY1. Plan of care was discussed with the attending physician and resident physician. Disclaimer: Despite multiple revisions, due to the dictation software being used, the document bellow may not be free of grammatical errors including phonetic/typographic errors. However, this does not deter from our commitment to providing health care in the patient's best interest in mind. Dr. 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 NO overnight events reported for patient. Patient is nonverbal and information gathered by son at bedside. Examined at bedside. Alert but not oriented. Cardio and pulmonary asculation. Abdomen palpated, without any grimacing noted. Suprapubic area palpated without any grimacing noted. No fevers reported overnight. Patient have struggled to find a neurologist as outpatient. Referral will be made for Dr. Soto upon discharge to follow outpatient in clinic. WBC improved. Vitals stable. Patients son up dated. Exam Vital Signs Temp Pulse Resp BP Pulse Ox O2 Del Method 98.5 F 91 16 144/97 H 98 Room Air 05/06/24 12:00 05/06/24 12:00 05/06/24 12:00 05/06/24 12:00 05/06/24 12:05/06/24 12:00 Narrative Exam General Appearance: Alert & Oriented X0, well-nourished female who is nonverbal, who is lying in bed in no acute distress HEENT: Skull symmetrical and atraumatic. Conjunctivae pin and moist. Pupils equal, round, reactive to light and accommodation (PERRL). External ear without lesion or discharge. Straight, nares patient, mucosa pink, no discharge. No thyroid nodule appreciated. No cervical lymphadenopathy. Cardio: Normal Rate and Rhythm with S1 and S2 heart sounds. No murmurs or extra heart sounds auscultated. No bruits on carotid auscultation. No peripheral edema or cyanosis. Lungs: Symmetric with good expansion. Chest and back non-tender. Breath sounds vesicular without crackles, wheezing or rhonchi Abdomen: Non-tender, Non-distended, Normal Reactive Bowel Sounds Neuro: Yes Alert, NO cooperative, NO oriented to person, NO place, and No time. None verbal. Upper motor strength 3/5 and Lower motor strength 0/5. Hemiplegia and hemiparesis. Objective Labs 05/06/24 05:19 05/06/24 12:50 Labs: Laboratory Results - last 24 hr 05/06/24 05/06/24 05:19 12:50 WBC 7.2 RBC 3.84 L Hgb 12.5 Hct 36.5 MCV 95 MCH 32.6 MCHC 34.2 RDW Std Deviation 48.5 H Plt Count 351 Neut % (Auto) 49 Lymph % (Auto) 26 Bradford % (Auto) 8 Eos % (Auto) 16 H Baso % (Auto) 1 Neut # (Auto) 3.5 Lymph # (Auto) 1.9 Bradford # (Auto) 0.6 Eos # (Auto) 1.1 H Baso # (Auto) 0.1 Immature Gran # (Auto) 0.04 H Absolute Nucleated RBC 0.00 Immature Gran % 1 H Nucleated RBC % 0 Sodium 144 Potassium 2.9 L D 3.4 D Chloride 107 Carbon Dioxide 25.3 Anion Gap 12 BUN 6 L Creatinine 0.3 L Estim Creat Clear Calc 159.7 eGFR > 60 BUN/Creatinine Ratio 20 Glucose 90 Calculated Osmolality 284 Calcium 9.8 Corrected Calcium 9.8 Phosphorus 3.0 Magnesium 1.5 L Total Bilirubin 0.6 AST 19 ALT 20 Alkaline Phosphatase 90 Total Protein 6.6 Albumin 4.0 Globulin 2.6 Albumin/Globulin Ratio 1.5 Quality Measures Quality Measures none Assessment & Plan Assessment Current Active Medications: Generic Name Dose Route Start Last Admin Trade Name Jabierq PRN Reason Stop Dose Admin Acetaminophen 650 mg 05/04/24 22:54 05/06/24 00:27 Acetaminophen 325 Mg Tablet PO 06/03/24 22:53 650 mg Q6H PRN Administration PAIN OR FEVER > 101 Aspirin 81 mg 05/05/24 09:00 05/06/24 10:24 Aspirin Ec 81 Mg Tabec PO 06/04/24 08:59 81 mg DAILY ROGER Administration Clopidogrel Bisulfate 75 mg 05/05/24 09:00 05/06/24 10:24 Clopidogrel Bisulfate 75 Mg Tablet PO 06/04/24 08:59 75 mg QDAY ROGER Administration Dextrose 25 ml 05/06/24 10:09 Dextrose 50%-Water Inj 50 Ml Syringe IV 06/05/24 10:08 Q15MIN PRN BG 50-70 responsive npo pt Dextrose 50 ml 05/06/24 10:09 Dextrose 50%-Water Inj 50 Ml Syringe IV 06/05/24 10:08 Q15MIN PRN BG <50 OR BG <70 & pt unresponsive Duloxetine HCl 30 mg 05/05/24 09:00 05/06/24 10:25 Duloxetine Hcl 30 Mg Capsule PO 06/04/24 08:59 30 mg QDAY ROGER Administration Fluconazole 800 mg 05/05/24 09:00 05/06/24 10:24 Fluconazole 100 Mg Tablet PO 05/12/24 08:59 800 mg QDAY ROGER Administration Glucagon 1 mg 05/06/24 10:09 Glucagon Inj 1 Mg Vial IM Q15MIN PRN BG <70, and no IV access Heparin Sodium (Porcine) 5,000 unit 05/04/24 23:00 05/06/24 08:23 Heparin Sod Inj 5000 Unit/Ml Vial SC 05/18/24 22:59 5,000 unit Q12HR ROGER Administration Sodium Chloride 1,000 mls @ 75 mls/hr 05/04/24 23:00 05/06/24 06:47 Ns IV 06/03/24 22:59 75 mls/hr .[id number] ROGER Administration Cefepime HCl 2 gm/ Sodium 50 mls @ 100 mls/hr 05/05/24 14:00 05/06/24 15:23 Chloride IV 05/12/24 13:59 100 mls/hr Q8HR ROGER Administration Doxycycline Hyclate 100 mg/ 100 mls @ 100 mls/hr 05/05/24 09:00 05/06/24 09:20 Sodium Chloride IV 05/12/24 08:59 Infused BID ROGER Infusion Lisinopril 20 mg 05/07/24 09:00 Lisinopril 20 Mg Tablet PO 06/06/24 08:59 QDAY ROGER Magnesium Hydroxide 30 ml 05/05/24 08:07 Milk Of Magnesia Susp 30 Ml Udc PO 06/04/24 08:06 QDAY PRN CONSTIPATION Protocol Meclizine HCl 25 mg 05/04/24 23:08 Meclizine Hcl 25 Mg Tablet PO 06/03/24 23:07 Q12H PRN Dizziness Mupirocin 0 gm 05/06/24 09:00 05/06/24 16:04 Mupirocin Oint 2% 15 Gm Tube TOP 05/11/24 08:59 1 applicatio TID ROGER Administration Sennosides 8.8 mg 05/05/24 08:07 Sennosides Syrup 8.8 Mg/5 Ml Udc PO 06/04/24 08:06 QDAY PRN CONSTIPATION Protocol Plan 54-year-old female with 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 #Pressure Ulcer #Sepsis likely secondary to pressure ulcer, improved Patient presented from SNF due to fever of 102.1, tachycardic with heart rate of 126, labs revealed leukocytosis of 11.5. Lactic acid and Pro-Ramesh is negative Patient met 3 out of 4 SIRS criteria Diagnostics: Blood Cultures Negative after 24 hours Chest x-ray is negative for PNA. UA is negative for UTI. Monospot, rapid strep, RSV negative. In ED patient received IVF, ABX. CT A/P showed large amount of stool, possible proctitis. Plan: -Follow-up blood and urine cultures -Continue IVF -Cefepime 2 g every 8 hours -Doxycycline 100 mg twice daily -MRSA screen #History of hypertension Home medication is Lisinopril 10 mg qday. Patient has have elevated systolic blood pressure of 160/95. Increase Lisinopril. Plan Home dose of Lisinopril 10 mg increased to 20 mg Qay #?Autoimmune encephalitis Per previous chart review, hospitalist team was consulted for autoimmune encephalitis, brain MRI showed prominent foci of increased signal in the white matter, demyelinating disease pattern. Repeat MRI with contrast demonstrated 17mm acute infarct of left basal ganglia. On February, autoimmune encephalitis panel VGKC and LGI1 antibody was sent, all negative Plan -Referral with Dr. Lai, Neurology, as outpatient upon discharge, will follow. #Coccidioides meningitis -Continue fluconazole 800 daily #Electrolyte imblance Continue to replace electrolytes as necessary. Plan: -Continue to monitor, replace as needed #CVA w/ hemiplegia and hemiparesis #Hyperlipidemia Plan -Resume home medication Aspirin and Plavix -Consider resuming Atorvastatin 80 mg HS #Fibromyalgia #Migraines -Continue home medications: meclizine, duloxetine DVT prophylaxis: Heparin GI prophylaxis: Protonix Diet: Cardiac Lines: Peripheral IV Code status: Full code - The patient's plan was discussed with attending Dr. Lamb and senior residents Dr. Tiago Kruger MD PGY1 Internal Medicine Attending Provider Attestation/Addendum I attest that I was physically present for the evaluation, physical examination, lab and imaging review of the patient with the residents. I discussed the case with the residents and agree with the findings and plans of care as documented above. At bedside today patient appears comfortable. Having her diet without problem. Continues to be nonverbal but is her baseline as per the family at bedside. Continues to be on IV antibiotics, awaiting culture results. 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 Discussed with neurology, recommended outpatient neurology follow-up. Has been afebrile for last 24 hours. Noted to have hypokalemia, repleted accordingly. Garcia Lamb MD
[2024-05-06] MEDS: BALSAM PERU/CASTOR OIL (Venelex) 60 GM TUBE TOP (21:17)
[2024-05-07] VITALS (7 sets, daily range): BP systolic 115–152; BP diastolic 84–99; PULSE 74–104; RESP 16–18; TEMP 36.1–36.6; O2SAT 94–100; BMI 12.0
[2024-05-07] MEDS: MUPIROCIN OINT 2% 15 GM TUBE TOP ×3 (05:06→22:04)
[2024-05-07] MEDS: CEFEPIME INJ 2 GM in SODIUM CHLORIDE 0.9% 50 ML IV ×3 (05:06→22:01)
[2024-05-07 05:55] LABS: Basophils # (Auto) 0.1 Thou/mm3 (0.0-0.2); Basophils % (Auto) 1 % (0-2.5); Eosinophils # (Auto) 1.3 Thou/mm3 (0.0-0.5); Eosinophils % (Auto) 19 % (0-10); Hematocrit 35.9 % (36.0-46.0); Hemoglobin 12.3 g/dL (12.0-16.0); Immature Granulocytes % (Auto) 0 % (0-0); Immature Granulocytes Auto 0.03 Thou/mm3 (0.00-0.00); Lymphocytes # (Auto) 1.8 Thou/mm3 (1.0-4.8); Lymphocytes % (Auto) 27 % (10-50); Mean Corpuscular HGB Conc 34.3 g/dl (31.0-37.0); Mean Corpuscular Hemoglobin 32.5 pg (25.0-35.0); Mean Corpuscular Volume 95 fL (80-100); Monocytes # (Auto) 0.6 Thou/mm3 (0.0-0.8); Monocytes % (Auto) 8 % (0-12); Neutrophils % (Auto) 45 % (37-80); Nucleated Red Blood Cell % 0 /100 WBC (0); Platelet Count 328 Thou/mm3 (140-440); RDW Standard Deviation 47.5 fL (36.4-46.3); Red Blood Count 3.79 Miln/mm3 (4.00-5.20); White Blood Count 6.7 Thou/mm3 (3.6-11.0)
[2024-05-07 06:21] LABS: Alanine Aminotransferase 18 U/L (10-49); Albumin, Serum 3.5 gm/dL (3.5-5.0); Albumin/Globulin Ratio 1.3 (1.2-2.2); Alkaline Phosphatase 88 U/L (46-116); Anion Gap 8 (7-16); Aspartate Amino Transferase 18 U/L (0-34); BUN/Creatinine Ratio 17 Ratio (12-20); Bilirubin,Total 0.5 mg/dL (0.3-1.2); Blood Urea Nitrogen < 5 mg/dL (9-23); Calcium 9.3 mg/dL (8.3-10.6); Calcium (Corrected) 9.7 mg/dL (8.5-10.1); Carbon Dioxide 26.5 mMol/L (20.0-31.0); Chloride 108 mMol/L (98-107); Creatinine (Component) 0.3 mg/dL (0.6-1.3); Estimated Creatinine Clearance 159.7 mL/min (>60); Globulin 2.6 gm/dL (2.3-3.5); Glucose 102 mg/dL (74-106); Magnesium 2.1 mg/dL (1.6-2.6); Osmolality,Calculated 280 (275-295); Phosphorous 2.3 mg/dL (2.4-5.1); Potassium 3.2 mMol/L (3.4-5.1); Sodium 142 mMol/L (136-145); Total Protein 6.1 gm/dL (5.7-8.2); eGFR > 60 See Note
[2024-05-07] MEDS: FLUCONAZOLE 100 MG TABLET 800 MG PO (08:40)
[2024-05-07] MEDS: SODIUM CHLORIDE 0.9% 1000 ML 1,000 ML 75 ML IV (08:40)
[2024-05-07] MEDS: DULoxetine HCL 30 MG CAPSULE PO (08:41)
[2024-05-07] MEDS: ASPIRIN EC 81 MG TABEC PO (08:41)
[2024-05-07] MEDS: Lisinopril 20 MG TABLET PO (08:41)
[2024-05-07] MEDS: POTASSIUM CHLORIDE 20 mEq TABCR 40 MEQ PO (08:42)
[2024-05-07] MEDS: DOXYCYCLINE INJ 100 MG in SODIUM CHLORIDE 0.9% (P) 100 ML IV ×2 (08:42→20:50)
[2024-05-07] MEDS: CLOPIDOGREL BISULFATE 75 MG TABLET PO (08:42)
[2024-05-07] MEDS: BALSAM PERU/CASTOR OIL (Venelex) 60 GM TUBE TOP ×2 (08:43→22:04)
[2024-05-07] MEDS: HEPARIN SOD INJ 5000 UNIT/ML VIAL SC ×2 (08:43→20:55)
[2024-05-07] MEDS: NAPH,KPH MBDB 1 PACKET (1.5 GM) PO (08:43)
--- NOTE | 2024-05-07 09:34 | PC.SS ---
Follow up note: DC today with oral antibiotic.
--- NOTE | 2024-05-07 12:44 | PC.CC ---
Pt entered into [facility], pt is open to [facility]
--- NOTE | 2024-05-07 14:36 | ESPR_ITS ---
<Statement entered by Raciel Watkins MD - 05/07/24 15:05> Patient was seen and examined at the bedside. Patient's family reported the patient is doing markedly better today. Urine culture grew Staph aureus for which we gave her Augmentin on the discharge. Patient's family want to take the patient to home therefore asbestos worker started the process on working on receiving home health to be set up anticipating discharge tomorrow morning. Patient will not go to SNF upon discharge. Labs were showing hypokalemia and hypophosphatemia which was corrected. Will continue with lisinopril 20 mg daily for blood pressure. All labs and orders were reviewed. I saw and examined the patient, and I agree with current management stated by Dr Juliana MD,PGY1. Plan of care was discussed with the attending physician and resident physician. Disclaimer: Despite multiple revisions, due to the dictation software being used, the document bellow may not be free of grammatical errors including phonetic/typographic errors. However, this does not deter from our commitment to providing health care in the patient's best interest in mind. Dr. June MD, PGY 2 Documentation for date of: 05/07/24 Subjective Subjective Interval history: No overnight events. Patient seen and examined at bedside, resting comfortably. Patient nonverbal, per family at bedside patient is at baseline. Patient's daughter expressed desire to have patient discharged to home with home health. Continue antibiotics. Lisinopril increased for better BP control. PT shankar, asbestos worker consulted for home health set up. Exam Vital Signs Temp Pulse Resp BP Pulse Ox O2 Del Method 97.8 F 92 18 115/94 H 98 Room Air 05/07/24 12:00 05/07/24 12:05/07/24 12:05/07/24 12:05/07/24 12:05/07/24 12:00 Narrative Exam General Appearance: Alert & Oriented X0, well-nourished female who is nonverbal, who is lying in bed in no acute distress HEENT: Skull symmetrical and atraumatic. Conjunctivae pink and moist. Pupils equal, round, reactive to light and accommodation (PERRL). Mucosa pink, no discharge. Cardio: Normal Rate and Rhythm with S1 and S2 heart sounds. No murmurs or extra heart sounds auscultated. No bruits on carotid auscultation. No peripheral edema or cyanosis. Lungs: Symmetric with good expansion. Chest and back non-tender. Breath sounds vesicular without crackles, wheezing or rhonchi Abdomen: Non-tender, Non-distended, Normal Reactive Bowel Sounds Neuro: Yes Alert, NO cooperative, NO oriented to person, NO place, and No time. None verbal. Upper motor strength 3/5 and Lower motor strength 0/5. Hemiplegia and hemiparesis. Objective Labs 05/07/24 05:29 05/07/24 05:29 Labs: Laboratory Results - last 24 hr 05/07/24 05:29 WBC 6.7 RBC 3.79 L Hgb 12.3 Hct 35.9 L MCV 95 MCH 32.5 MCHC 34.3 RDW Std Deviation 47.5 H Plt Count 328 Neut % (Auto) 45 Lymph % (Auto) 27 Bowie % (Auto) 8 Eos % (Auto) 19 H Baso % (Auto) 1 Neut # (Auto) 3.0 Lymph # (Auto) 1.8 Bowie # (Auto) 0.6 Eos # (Auto) 1.3 H Baso # (Auto) 0.1 Immature Gran # (Auto) 0.03 H Absolute Nucleated RBC 0.00 Immature Gran % 0 Nucleated RBC % 0 Sodium 142 Potassium 3.2 L Chloride 108 H Carbon Dioxide 26.5 Anion Gap 8 BUN < 5 L Creatinine 0.3 L Estim Creat Clear Calc 159.7 eGFR > 60 BUN/Creatinine Ratio 17 Glucose 102 Calculated Osmolality 280 Calcium 9.3 Corrected Calcium 9.7 Phosphorus 2.3 L Magnesium 2.1 Total Bilirubin 0.5 AST 18 ALT 18 Alkaline Phosphatase 88 Total Protein 6.1 Albumin 3.5 D Globulin 2.6 Albumin/Globulin Ratio 1.3 Quality Measures Quality Measures VTE prophylaxis Assessment & Plan Assessment Current Active Medications: Generic Name Dose Route Start Last Admin Trade Name Freq PRN Reason Stop Dose Admin Acetaminophen 650 mg 05/04/24 22:54 05/06/24 00:27 Acetaminophen 325 Mg Tablet PO 06/03/24 22:53 650 mg Q6H PRN Administration PAIN OR FEVER > 101 Aspirin 81 mg 05/05/24 09:00 05/07/24 08:41 Aspirin Ec 81 Mg Tabec PO 06/04/24 08:59 81 mg DAILY ROGER Administration Balsam Sol/[place] Oil 0 gm 05/06/24 21:00 05/07/24 08:43 Balsam [place] Oil (Venelex) 60 Gm Tube TOP 06/05/24 20:59 1 applicatio BID ROGER Administration Clopidogrel Bisulfate 75 mg 05/05/24 09:00 05/07/24 08:42 Clopidogrel Bisulfate 75 Mg Tablet PO 06/04/24 08:59 75 mg QDAY ROGER Administration Dextrose 25 ml 05/06/24 10:09 Dextrose 50%-Water Inj 50 Ml Syringe IV 06/05/24 10:08 Q15MIN PRN BG 50-70 responsive npo pt Dextrose 50 ml 05/06/24 10:09 Dextrose 50%-Water Inj 50 Ml Syringe IV 06/05/24 10:08 Q15MIN PRN BG <50 OR BG <70 & pt unresponsive Duloxetine HCl 30 mg 05/05/24 09:00 05/07/24 08:41 Duloxetine Hcl 30 Mg Capsule PO 06/04/24 08:59 30 mg QDAY ROGER Administration Fluconazole 800 mg 05/05/24 09:00 05/07/24 08:40 Fluconazole 100 Mg Tablet PO 05/12/24 08:59 800 mg QDAY ROGER Administration Glucagon 1 mg 05/06/24 10:09 Glucagon Inj 1 Mg Vial IM Q15MIN PRN BG <70, and no IV access Heparin Sodium (Porcine) 5,000 unit 05/04/24 23:00 05/07/24 08:43 Heparin Sod Inj 5000 Unit/Ml Vial SC 05/18/24 22:59 5,000 unit Q12HR ROGER Administration Sodium Chloride 1,000 mls @ 75 mls/hr 05/04/24 23:00 05/07/24 08:40 Ns IV 06/03/24 22:59 75 mls/hr .[id number] ROGER Administration Cefepime HCl 2 gm/ Sodium 50 mls @ 100 mls/hr 05/05/24 14:00 05/07/24 05:06 Chloride IV 05/12/24 13:59 100 mls/hr Q8HR ROGER Administration Doxycycline Hyclate 100 mg/ 100 mls @ 100 mls/hr 05/05/24 09:00 05/07/24 08:42 Sodium Chloride IV 05/12/24 08:59 100 mls/hr BID ROGER Administration Lisinopril 20 mg 05/07/24 09:00 05/07/24 08:41 Lisinopril 20 Mg Tablet PO 06/06/24 08:59 20 mg QDAY ROGER Administration Magnesium Hydroxide 30 ml 05/05/24 08:07 Milk Of Magnesia Susp 30 Ml Udc PO 06/04/24 08:06 QDAY PRN CONSTIPATION Protocol Meclizine HCl 25 mg 05/04/24 23:08 Meclizine Hcl 25 Mg Tablet PO 06/03/24 23:07 Q12H PRN Dizziness Mupirocin 0 gm 05/06/24 09:00 05/07/24 05:06 Mupirocin Oint 2% 15 Gm Tube TOP 05/11/24 08:59 1 applicatio TID ROGER Administration Sennosides 8.8 mg 05/05/24 08:07 Sennosides Syrup 8.8 Mg/5 Ml Udc PO 06/04/24 08:06 QDAY PRN CONSTIPATION Protocol Plan 54-year-old female with 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 #Pressure Ulcer #Sepsis likely secondary to pressure ulcer, improved Patient presented from SNF due to fever of 102.1, tachycardic with heart rate of 126, labs revealed leukocytosis of 11.5. Lactic acid and Pro-Ramesh is negative Patient met 3 out of 4 SIRS criteria Blood Cultures Negative after 48 hours Chest x-ray is negative for PNA. UA is negative for UTI. Monospot, rapid strep, RSV negative. In ED patient received IVF, ABX. CT A/P showed large amount of stool, possible proctitis. Blood cultures negative x 48 hours. Culture positive for Staph aureus, but minimal colony-forming units, likely colonization. Suspect buttock ulcer as source of infection. -Continue IVF -Cefepime 2 g every 8 hours -Doxycycline 100 mg twice daily -MRSA screen #History of hypertension Home medication is Lisinopril 10 mg qday. Patient has have elevated systolic blood pressure of 160/95. Increased Lisinopril. -Home dose of Lisinopril 10 mg increased to 20 mg Qay #?Autoimmune encephalitis Per previous chart review, hospitalist team was consulted for autoimmune encephalitis, brain MRI showed prominent foci of increased signal in the white matter, demyelinating disease pattern. Repeat MRI with contrast demonstrated 17mm acute infarct of left basal ganglia. On February, autoimmune encephalitis panel VGKC and LGI1 antibody was sent, all negative Plan -Referral with Dr. Lai, Neurology, as outpatient upon discharge, will follow. #Coccidioides meningitis -Continue fluconazole 800 daily #Electrolyte imblance Continue to replace electrolytes as necessary. Plan: -Continue to monitor, replace as needed #CVA w/ hemiplegia and hemiparesis #Hyperlipidemia Plan -Resume home medication Aspirin and Plavix -Consider resuming Atorvastatin 80 mg HS #Fibromyalgia #Migraines -Continue home medications: meclizine, duloxetine DVT prophylaxis: Heparin GI prophylaxis: Protonix Diet: Cardiac Lines: Peripheral IV Code status: Full code Plan of care discussed with senior resident Dr. Watkins PGY?[address] Lamb. Devyn Andrews MD PGY?1 Attending Provider Attestation/Addendum I attest that I was physically present for the evaluation, physical examination, lab and imaging review of the patient with the residents. I discussed the case with the residents and agree with the findings and plans of care as documented above. At bedside, patient appears comfortable. Family at bedside explained about her current condition and further management plans. Patient remains afebrile with stable vital signs. Source of infection likely pressure sore or unknown viral infection. Blood cultures are negative. Urine culture grew Staphylococcus aureus but only 20-30,000 colonies with negative UA. Pending placement for continuation of physical therapy. Garcia Lamb MD
--- NOTE | 2024-05-07 14:57 | PC.SS ---
Follow up note: SS called Nena from [facility] who confirmed pt was followed by [facility] before transferring to SNF and they require to run patient's health insurance for coverage. Nena is requesting HH referral and inquiry be sent. Transfer nurse, Marina is aware. SS has sent PT referral to out patient PT, SS provided dtrTeresita with Out Patient PT phone# and address. Dtr is aware pt does not have Managed Medical Health Insurance for [facility]. has provided dtr with [facility] phone#
--- NOTE | 2024-05-07 16:04 | PC.SS ---
Addendum entered by Maeve Gutierrez 05/07/24 16:24: [facility] up note[facility]. Original Note: SS follow up note; SS submitted DME for a wheelchair through [employer] platform.
--- NOTE | 2024-05-07 16:29 | PC.CM ---
Addendum entered by Cary Tesfaye RN 05/07/24 17:20: [facility] accepted the pt. Booked [facility]. Pending start of care date. Original Note: HH referral sent on [facility]. Awaiting responses. Pending Start of care date.
[2024-05-08] VITALS: BP 133/92; PULSE 102; PULSE 96; RESP 16; TEMP 36.1; O2SAT 97
[2024-05-08] MEDS: SODIUM CHLORIDE 0.9% 1000 ML 1,000 ML 75 ML IV ×2 (01:28→22:51)
[2024-05-08 04:00] VITALS: BP 148/105; PULSE 100; RESP 16; TEMP 36.2; O2SAT 95
[2024-05-08] MEDS: CEFEPIME INJ 2 GM in SODIUM CHLORIDE 0.9% 50 ML IV ×2 (05:57→14:43)
[2024-05-08] MEDS: MUPIROCIN OINT 2% 15 GM TUBE TOP ×3 (05:59→21:40)
[2024-05-08 06:15] LABS: Basophils % (Auto) 1 % (0-2.5); Eosinophils # (Auto) 1.3 Thou/mm3 (0.0-0.5); Eosinophils % (Auto) 22 % (0-10); Hematocrit 34.9 % (36.0-46.0); Hemoglobin 12.1 g/dL (12.0-16.0); Immature Granulocytes % (Auto) 1 % (0-0); Immature Granulocytes Auto 0.05 Thou/mm3 (0.00-0.00); Lymphocytes # (Auto) 1.6 Thou/mm3 (1.0-4.8); Lymphocytes % (Auto) 27 % (10-50); Mean Corpuscular HGB Conc 34.7 g/dl (31.0-37.0); Mean Corpuscular Hemoglobin 32.7 pg (25.0-35.0); Mean Corpuscular Volume 94 fL (80-100); Monocytes # (Auto) 0.4 Thou/mm3 (0.0-0.8); Monocytes % (Auto) 6 % (0-12); Neutrophils # (Auto) 2.6 Thou/mm3 (1.8-7.7); Neutrophils % (Auto) 44 % (37-80); Nucleated Red Blood Cell % 0 /100 WBC (0); Platelet Count 340 Thou/mm3 (140-440)
[2024-05-08 06:51] LABS: Alanine Aminotransferase 15 U/L (10-49); Albumin, Serum 3.5 gm/dL (3.5-5.0); Albumin/Globulin Ratio 1.5 (1.2-2.2); Alkaline Phosphatase 89 U/L (46-116); Anion Gap 9 (7-16); Aspartate Amino Transferase 18 U/L (0-34); BUN/Creatinine Ratio 17 Ratio (12-20); Bilirubin,Total 0.4 mg/dL (0.3-1.2); Blood Urea Nitrogen 5 mg/dL (9-23); Calcium 9.6 mg/dL (8.3-10.6); Carbon Dioxide 24.7 mMol/L (20.0-31.0); Chloride 109 mMol/L (98-107); Creatinine (Component) 0.3 mg/dL (0.6-1.3); Estimated Creatinine Clearance 159.7 mL/min (>60); Globulin 2.4 gm/dL (2.3-3.5); Glucose 96 mg/dL (74-106); Magnesium 1.6 mg/dL (1.6-2.6); Osmolality,Calculated 282 (275-295); Phosphorous 2.3 mg/dL (2.4-5.1); Potassium 3.1 mMol/L (3.4-5.1); Sodium 143 mMol/L (136-145); Total Protein 5.9 gm/dL (5.7-8.2); eGFR > 60 See Note
[2024-05-08 08:00] VITALS: BP 133/64; PULSE 101; PULSE 90; RESP 22; TEMP 36.2; O2SAT 99
[2024-05-08] MEDS: DOXYCYCLINE INJ 100 MG in SODIUM CHLORIDE 0.9% (P) 100 ML IV (08:56)
[2024-05-08] MEDS: HEPARIN SOD INJ 5000 UNIT/ML VIAL SC ×2 (08:56→21:33)
[2024-05-08] MEDS: BALSAM PERU/CASTOR OIL (Venelex) 60 GM TUBE TOP ×2 (08:59→21:41)
--- NOTE | 2024-05-08 09:33 | PC.SS ---
Late note 05-07-24: Pt is non verbal. SS spoke to patient's dtr, Teresita Sales regarding patient's d/c plan. Pt is from [facility] and family is now requesting pt to return home. Pt resides with and children. Dtr states her 3 siblings will help care for pt at home. Pt uses a walker to ambulate and is now requesting a wheelchair. Pt requires assistance with ADLs. Dtr states patient's , Chan Sales is her medical decision maker. Dtr is requesting pt return home with [facility]. Pt followed up with PCP in February 2024. Family will provide transportation. DC plan: Return home with [facility] Next of kin: Conimelissa Eckert, , phone# [phone] or Teresita Sales, dtr, phone# [phone] PCP: Dr. Honorio Mckoy from [facility] Address: Correct on facesheet
[2024-05-08] MEDS: Magnesium Sulfate 2 GM Ivpb 2 GM/50 ML BAG IV (10:06)
[2024-05-08] MEDS: POTASSIUM PHOS 15 MMOL in SODIUM CHLORIDE 0.9% 250 ML 245 ML 62.5 MMOL IV (10:07)
--- NOTE | 2024-05-08 11:22 | XR_ITS ---
Examination: CT brain head without contrast. 2-D sagittal coronal reconstructions Date and time of exam:May 08, 2024 1149 hours Comparison March 04, 2024 INDICATIONS: Altered mental status today, CVA neurologic deficit February 2024 CTDI: vol (mGy):42.1 DLP: (mGycm):884 Technique: Multiple CT axial sections of the brain have been obtained, 5 mm slice thickness. Contrast has not been administered. 2-D sagittal, coronal reconstructions have been obtained Low dose protocols were performed. One or more of the following dose reduction techniques were used; automated exposure control, adjustment of the mA and/or KV according to patient size, use of iterative reconstruction technique. Findings: Mild to moderate ventricular enlargement. Intra-axial or extra-axial hemorrhage density is not seen. No mass effect or midline shift Basal cisterns are not remarkable. Fourth ventricle is midline. Cranial vault intact. Impression: Negative for acute hemorrhage, mass effect or midline shift Subarachnoid hemorrhage in the right sylvian fissure is no longer identified As clinically warranted, consider repeat brain MRI without contrast
[2024-05-08 12:00] VITALS: BP 165/96; PULSE 90; PULSE 96; RESP 21; TEMP 36.5; O2SAT 98
--- NOTE | 2024-05-08 13:10 | ESPR_ITS ---
<Statement entered by Raciel Watkins MD - 05/08/24 15:13> Patient was seen and examined at the bedside. Patient was altered this morning and per daughter patient is less alert oriented. We placed an order for bladder scan and head CT without contrast to evaluate further. Electrolytes were repleted. Vitals were stable and no acute overnight events were reported. We are currently working with social services director for home health set up. Will follow- up with head CT and evaluate her today for altered mentation. All labs and orders were reviewed. I saw and examined the patient, and I agree with current management stated by Dr Juliana MD,PGY1. Plan of care was discussed with the attending physician and resident physician. Disclaimer: Despite multiple revisions, due to the dictation software being used, the document bellow may not be free of grammatical errors including phonetic/typographic errors. However, this does not deter from our commitment to providing health care in the patient's best interest in mind. Dr. June MD, PGY 2 Documentation for date of: 05/08/24 Subjective Subjective Interval history: No overnight events. Patient seen examined at bedside. Patient seemed less responsive than previous exams. Head CT negative. Neurology consulted, recs pending. Discontinue cefepime and Doxy, started on Augmentin. Follow-up neuro recs. Exam Vital Signs Temp Pulse Resp BP Pulse Ox O2 Del Method 97.1 F 101 H 22 H 133/64 H 99 Room Air 05/08/24 08:00 05/08/24 08:00 05/08/24 08:00 05/08/24 08:00 05/08/24 08:00 05/08/24 08:00 Narrative Exam General Appearance: Alert & Oriented X0, well-nourished female who is nonverbal, who is lying in bed in no acute distress HEENT: Skull symmetrical and atraumatic. Conjunctivae pink and moist. Pupils equal, round, reactive to light and accommodation (PERRL). Mucosa pink, no discharge. Cardio: Normal Rate and Rhythm with S1 and S2 heart sounds. No murmurs or extra heart sounds auscultated. No bruits on carotid auscultation. No peripheral edema or cyanosis. Lungs: Symmetric with good expansion. Chest and back non-tender. Breath sounds vesicular without crackles, wheezing or rhonchi Abdomen: Non-tender, Non-distended, Normal Reactive Bowel Sounds Neuro: Yes Alert, NO cooperative, NO oriented to person, NO place, and No time. None verbal. Upper motor strength 3/5 and Lower motor strength 0/5. Hemiplegia and hemiparesis. Less responsive than yesterday. Objective Labs 05/08/24 05:40 05/08/24 05:40 Labs: Laboratory Results - last 24 hr 05/08/24 05:40 WBC 6.0 RBC 3.70 L Hgb 12.1 Hct 34.9 L MCV 94 MCH 32.7 MCHC 34.7 RDW Std Deviation 47.0 H Plt Count 340 Neut % (Auto) 44 Lymph % (Auto) 27 [place] % (Auto) 6 Eos % (Auto) 22 H Baso % (Auto) 1 Neut # (Auto) 2.6 Lymph # (Auto) 1.6 [place] # (Auto) 0.4 Eos # (Auto) 1.3 H Baso # (Auto) 0.0 Immature Gran # (Auto) 0.05 H Absolute Nucleated RBC 0.00 Immature Gran % 1 H Nucleated RBC % 0 Sodium 143 Potassium 3.1 L Chloride 109 H Carbon Dioxide 24.7 Anion Gap 9 BUN 5 L Creatinine 0.3 L Estim Creat Clear Calc 159.7 eGFR > 60 BUN/Creatinine Ratio 17 Glucose 96 Calculated Osmolality 282 Calcium 9.6 Corrected Calcium 10.0 Phosphorus 2.3 L Magnesium 1.6 Total Bilirubin 0.4 AST 18 ALT 15 Alkaline Phosphatase 89 Total Protein 5.9 Albumin 3.5 Globulin 2.4 Albumin/Globulin Ratio 1.5 Quality Measures Quality Measures VTE prophylaxis Assessment & Plan Assessment Current Active Medications: Generic Name Dose Route Start Last Admin Trade Name Jabierq PRN Reason Stop Dose Admin Acetaminophen 650 mg 05/04/24 22:54 05/06/24 00:27 Acetaminophen 325 Mg Tablet PO 06/03/24 22:53 650 mg Q6H PRN Administration PAIN OR FEVER > 101 Aspirin 81 mg 05/05/24 09:00 05/08/24 09:19 Aspirin Ec 81 Mg Tabec PO 06/04/24 08:59 Not Given DAILY ROGER Balsam [place] Oil 0 gm 05/06/24 21:00 05/08/24 08:59 Balsam Sol/[place] Oil (Venelex) 60 Gm Tube TOP 06/05/24 20:59 1 applicatio BID ROGER Administration Clopidogrel Bisulfate 75 mg 05/05/24 09:00 05/08/24 09:19 Clopidogrel Bisulfate 75 Mg Tablet PO 06/04/24 08:59 Not Given QDAY ROGER Dextrose 25 ml 05/06/24 10:09 Dextrose 50%-Water Inj 50 Ml Syringe IV 06/05/24 10:08 Q15MIN PRN BG 50-70 responsive npo pt Dextrose 50 ml 05/06/24 10:09 Dextrose 50%-Water Inj 50 Ml Syringe IV 06/05/24 10:08 Q15MIN PRN BG <50 OR BG <70 & pt unresponsive Duloxetine HCl 30 mg 05/05/24 09:00 05/08/24 09:19 Duloxetine Hcl 30 Mg Capsule PO 06/04/24 08:59 Not Given QDAY ROGER Fluconazole 800 mg 05/05/24 09:00 05/08/24 09:19 Fluconazole 100 Mg Tablet PO 05/12/24 08:59 Not Given QDAY ROGER Glucagon 1 mg 05/06/24 10:09 Glucagon Inj 1 Mg Vial IM Q15MIN PRN BG <70, and no IV access Heparin Sodium (Porcine) 5,000 unit 05/04/24 23:00 05/08/24 08:56 Heparin Sod Inj 5000 Unit/Ml Vial SC 05/18/24 22:59 5,000 unit Q12HR ROGER Administration Sodium Chloride 1,000 mls @ 75 mls/hr 05/04/24 23:00 05/08/24 01:28 Ns IV 06/03/24 22:59 75 mls/hr .[id number] ROGER Administration Cefepime HCl 2 gm/ Sodium 50 mls @ 100 mls/hr 05/05/24 14:00 05/08/24 05:57 Chloride IV 05/12/24 13:59 100 mls/hr Q8HR ROGER Administration Doxycycline Hyclate 100 mg/ 100 mls @ 100 mls/hr 05/05/24 09:00 05/08/24 08:56 Sodium Chloride IV 05/12/24 08:59 100 mls/hr BID ROGER Administration Lisinopril 20 mg 05/07/24 09:00 05/08/24 09:19 Lisinopril 20 Mg Tablet PO 06/06/24 08:59 Not Given QDAY ROGER Magnesium Hydroxide 30 ml 05/05/24 08:07 Milk Of Magnesia Susp 30 Ml Udc PO 06/04/24 08:06 QDAY PRN CONSTIPATION Protocol Meclizine HCl 25 mg 05/04/24 23:08 Meclizine Hcl 25 Mg Tablet PO 06/03/24 23:07 Q12H PRN Dizziness Mupirocin 0 gm 05/06/24 09:00 05/08/24 05:59 Mupirocin Oint 2% 15 Gm Tube TOP 05/11/24 08:59 1 applicatio TID ROGER Administration Sennosides 8.8 mg 05/05/24 08:07 Sennosides Syrup 8.8 Mg/5 Ml Udc PO 06/04/24 08:06 QDAY PRN CONSTIPATION Protocol Plan 54-year-old female with 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 #Acute encephalopathy Patient appears less responsive on exam than previous day. Difficult to ascertain as patient baseline mental status has severely deteriorated. CT head negative. Neuroconsulted. Cefepime discontinued. -Follow-up neuro recs #Pressure Ulcer #Sepsis likely secondary to pressure ulcer, improved Patient presented from SNF due to fever of 102.1, tachycardic with heart rate of 126, labs revealed leukocytosis of 11.5. Lactic acid and Pro-Ramesh is negative Patient met 3 out of 4 SIRS criteria Blood Cultures Negative after 48 hours Chest x-ray is negative for PNA. UA is negative for UTI. Monospot, rapid strep, RSV negative. In ED patient received IVF, ABX. CT A/P showed large amount of stool, possible proctitis. Blood cultures negative x 48 hours. Culture positive for Staph aureus, but minimal colony-forming units, likely colonization. Suspect buttock ulcer as source of infection. -Continue IVF -Augmentin 875 p.o. twice daily -MRSA screen #History of hypertension Home medication is Lisinopril 10 mg qday. Patient has have elevated systolic blood pressure of 160/95. Increased Lisinopril. -Home dose of Lisinopril 10 mg increased to 20 mg Qay #?Autoimmune encephalitis Per previous chart review, hospitalist team was consulted for autoimmune encephalitis, brain MRI showed prominent foci of increased signal in the white matter, demyelinating disease pattern. Repeat MRI with contrast demonstrated 17mm acute infarct of left basal ganglia. On February, autoimmune encephalitis panel [facility] and LGI1 antibody was sent, all negative Plan -Referral with Dr. Lai, Neurology, as outpatient upon discharge, will follow. #Coccidioides meningitis -Continue fluconazole 800 daily #Electrolyte imblance Continue to replace electrolytes as necessary. Plan: -Continue to monitor, replace as needed #CVA w/ hemiplegia and hemiparesis #Hyperlipidemia Plan -Resume home medication Aspirin and Plavix -Consider resuming Atorvastatin 80 mg HS #Fibromyalgia #Migraines -Continue home medications: meclizine, duloxetine DVT prophylaxis: Heparin GI prophylaxis: Protonix Diet: Cardiac Lines: Peripheral IV Code status: Full code Plan of care discussed with senior resident Dr. Watkins PGY?[address] Lamb. Devyn Andrews MD PGY?1 Attending Provider Attestation/Addendum I attest that I was physically present for the evaluation, physical examination, lab and imaging review of the patient with the residents. I discussed the case with the residents and agree with the findings and plans of care as documented above. Patient was planned for discharge today on oral antibiotic but at bedside this morning, she appears to have altered mentation. Unable to follow command. Family at bedside stated that patient is not at her baseline mentation. We will obtain a head CT, neurology consult and monitor her mental status closely. Garcia Lamb MD
[2024-05-08 15:34] VITALS: BMI 19.5
[2024-05-08 16:00] VITALS: BP 155/97; PULSE 95; PULSE 97; RESP 21; TEMP 36.2; O2SAT 95
[2024-05-08 20:00] VITALS: BP 148/93; PULSE 98; RESP 16; TEMP 36.3; O2SAT 97
--- NOTE | 2024-05-08 23:02 | PD.NEUROCONS ---
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 She was noted to meet criteria for sepsis with temperature of 102.1, tachycardic with heart rate of 126, labs revealed leukocytosis, hypokalemia potassium of 3.1 and hypophosphatemia, urine was negative for UTI, EKG unremarkable, chest x-ray negative for PNA. Influenza and COVID is negative. Patient is nonverbal, son was at bedside and most of the history was taken per chart review and per son. In ER, patient received bolus, ceftriaxone, Tylenol, potassium and was admitted for sepsis of unknown source. Neurology was consulted elevated for the persistent symptoms of aphasia and dense right hemiplegia without any abnormal involuntary movements. cc:: cc: Garcai Lamb MD Review of Systems Review of Systems ROS Unobtainable: unobtainable due to mental status and unobtainable due to medical condition Past Medical History Past Medical History NEUROLOGIC: Positive Neurological Disorders, Cerebrovascular Accident and Migraine; Negative Seizures CARDIAC: Positive Cardiac Disorders and Hypertension; Negative Congestive Heart Failure RESPIRATORY: Negative Respiratory Disorders, Chronic Obstructive Pulmonary Disease (COPD) or Asthma GASTROINTESTINAL: Negative Gastrointestinal Disorders GENITOURINARY: Negative Genitourinary Disorders or Renal Disease REPRODUCTIVE: Positive Previous Pregnancies MUSCULOSKELETAL: Positive Musculoskeletal Disorders and Arthritis ENDOCRINE: Negative Endocrine Disorders, Diabetes Mellitus Type 1 or Diabetes Mellitus Type 2 HEMATOLOGIC: Negative Blood Disorders or Sickle Cell Disease PSYCHO/SOCIAL: Positive Depression and Anxiety OTHER HISTORY: Negative Hospitalization, Autoimmune Disease, Down Syndrome, Developmental Delay, Shingles, Falls, Blood Transfusions, Blood Transfusion Reaction, Anesthesia Reactions, Organ Transplant, Chemotherapy, Radiation Therapy, Hyperbaric Therapy, MRSA, VRSA, Vancomycin-Resistant Enterococci or Cancer Family History FAMILY HISTORY: Negative Family Psychiatric Problems, Family Respiratory Disorders, Family Cardiac Disorders, Family Gastrointestinal Problems, Family Cancer, Family Surgery or Family Anesthesia Reaction Surgical History SURGICAL: Positive Hysterectomy; Negative Organ Transplant Social History SMOKING STATUS: Smoker, status unknown SECOND HAND EXPOSURE: No SUBSTANCE USE: does not use Meds Home Medications and Allergies Home Medications ?Medication ?Instructions ?Recorded ?Confirmed ?Type acetaminophen 500 mg tablet 500 mg PO [id number] PRN Pain 02/01/24 05/04/24 History duloxetine 30 mg capsule,delayed 30 mg PO QDAY 02/01/24 05/04/24 History release meclizine 25 mg tablet 25 mg PO Q12H PRN Dizziness 02/01/24 05/04/24 History aspirin 81 mg tablet,delayed 81 mg PO DAILY 02/29/24 05/04/24 History release clopidogrel 75 mg tablet (Plavix) 75 mg PO QDAY 02/29/24 05/04/24 History bisacodyl 10 mg rectal suppository 10 mg DC Q72H PRN Constipation 05/04/24 05/04/24 History (Dulcolax (bisacodyl)) magnesium hydroxide 400 mg/5 mL 15 ml PO Q72H PRN Constipation 05/04/24 05/04/24 History oral suspension (Milk of Magnesia) ondansetron HCl 4 mg tablet 4 mg PO Q6H PRN Nausea And Vomiting 05/04/24 05/04/24 History sennosides 8.6 mg tablet (senna) 8.6 mg PO QDAY PRN Constipation 05/04/24 05/04/24 History sodium phosphates 19 gram-7 118 ml DC Q72H 05/04/24 05/04/24 History gram/118 mL enema (Fleet Enema) Allergies Allergy/AdvReac Type Severity Reaction Status Date / Time No Known Allergies Allergy Verified 05/04/24 18:19 Exam - Neurology Vital Signs Temp Pulse Resp BP Pulse Ox O2 Del Method 97.3 F 98 16 148/93 H 97 Room Air 05/08/24 20:00 05/08/24 20:00 05/08/24 20:00 05/08/24 20:00 05/08/24 20:00 05/08/24 20:00 Narrative Exam GENERAL APPEARANCE: Well developed, well-nourished in no acute distress. HEENT: Normocephalic, atraumatic, extraocular movements intact. Pupils: Equal reacting to light NECK: Supple, no JVD or bruits. CARDIOVASULAR: Heart: S1, S2 heard, regular without S3-S4 or murmur no rubs or gallops. LUNGS/CHEST: Clear to auscultation bilaterally. No rails, rhonchi, or wheezing. Normal inspection. ABDOMEN: Soft, nontender, with normal bowel sounds. No pulsatile masses. No rebound, rigidity, or guarding. Normal inspection and palpation. EXTREMITIES: Normal inspection and palpation. No edema, clubbing or cyanosis. SKIN: Warm and dry without rashes. Normal inspection. MUSCULOSKELETAL: No cervical, thoracic, lumbar or midline bony tenderness. Normal inspection. NEURO: Alert, awake and globally aphasic, Dense right hemiplegia noted. Purposeful movements noted in the left upper and lower extremities noted.. no signs of meningeal irritation noted. PSYCHIATRIC: normal mood and affect. Results Labs 05/09/24 05:25 05/09/24 05:25 Labs: Short CBC 05/08/24 Range/Units 05:40 WBC 6.0 (3.6-11.0) Thou/mm3 Hgb 12.1 (12.0-16.0) g/dL Hct 34.9 L (36.0-46.0) % Plt Count 340 (140-440) Thou/mm3 BMP 05/08/24 05:40 Sodium 143 Potassium 3.1 L Chloride 109 H Carbon Dioxide 24.7 BUN 5 L Creatinine 0.3 L Glucose 96 Calcium 9.6 Liver Function 05/08/24 Range/Units 05:40 Total Bilirubin 0.4 (0.3-1.2) mg/dL AST 18 (0-34) U/L ALT 15 (10-49) U/L Alkaline Phosphatase 89 (46-116) U/L Albumin 3.5 (3.5-5.0) gm/dL Assessment & Plan Assessment and plan (1) Aphasia: Status: Chronic Assessment and plan: worsened after stopping weaning from steroids Will do MRI brain with contrast then decide about the repeat CSF analysis hoping that AE panel will be sent this time to [facility] lab then consider high dose steroids/IVIG (2) Recent cerebrovascular accident: Status: Chronic Assessment and plan: With persistent dense right-sided weakness and aphasia Continue with aspirin (3) Essential (primary) hypertension: Status: Acute Assessment and plan: Continue with the blood pressure control (4) Chronic migraine: Status: Chronic Assessment and plan: By history, stable now. (5) Coccidioidomycosis meningitis: Status: Acute Assessment and plan: continue with the Diflucan for life with close monitoring of liver enzymes.
[2024-05-09] VITALS: BP 144/96; PULSE 94; PULSE 99; RESP 16; TEMP 36.4; O2SAT 95
--- NOTE | 2024-05-09 01:49 | XR_ITS ---
Examination: MRI brain without intravenous contrast. Date and time of exam: The 2024 1700 hrs. Indications: Altered mental status, aphasia, right hemiplegia 2 months after cerebral infarction, history coccidioidomycosis meningitis, diagnosis thickening and cellulitis Technique: Multiple axial and sagittal images of the brain obtained. Siemens high-resolution 1.5 Slime short bore scanners utilized. Sagittal sections, T1-weighted, TR 500, TE 14, are performed. Axial sections proton-density and T2-weighted have been obtained. Inversion recovery axial images, TR 9, 260, TE 111, TI 2500. Diffusion weighted images, axial sections, TR 4800, TE 128, B value 1000 Axial sections, ADC map, TR 4800, TE 128 Findings: All of the images are markedly degraded by continual patient motion Mild ventricular enlargement No foci of restricted diffusion FLAIR images are severely degraded with prominent white matter and periventricular changes No midline shift Impression: Severely limited study secondary to continual patient motion No acute infarct No gross mass effect Prominent white matter change on severely degraded FLAIR images
--- NOTE | 2024-05-09 03:27 | RESP.EEG ---
EEG completed and ready for review
[2024-05-09 04:00] VITALS: BP 153/99; PULSE 90; PULSE 96; RESP 19; TEMP 36.5; O2SAT 95
[2024-05-09 06:21] LABS: Basophils % (Auto) 1 % (0-2.5); Eosinophils # (Auto) 1.3 Thou/mm3 (0.0-0.5); Eosinophils % (Auto) 20 % (0-10); Hematocrit 36.7 % (36.0-46.0); Hemoglobin 12.8 g/dL (12.0-16.0); Immature Granulocytes % (Auto) 1 % (0-0); Immature Granulocytes Auto 0.06 Thou/mm3 (0.00-0.00); Lymphocytes # (Auto) 1.7 Thou/mm3 (1.0-4.8); Lymphocytes % (Auto) 28 % (10-50); Mean Corpuscular HGB Conc 34.9 g/dl (31.0-37.0); Mean Corpuscular Hemoglobin 32.7 pg (25.0-35.0); Mean Corpuscular Volume 94 fL (80-100); Monocytes # (Auto) 0.4 Thou/mm3 (0.0-0.8); Monocytes % (Auto) 7 % (0-12); Neutrophils # (Auto) 2.6 Thou/mm3 (1.8-7.7); Neutrophils % (Auto) 43 % (37-80); Nucleated Red Blood Cell % 0 /100 WBC (0); Platelet Count 353 Thou/mm3 (140-440); RDW Standard Deviation 46.7 fL (36.4-46.3); Red Blood Count 3.91 Miln/mm3 (4.00-5.20); White Blood Count 6.2 Thou/mm3 (3.6-11.0)
[2024-05-09 06:40] LABS: Alanine Aminotransferase 25 U/L (10-49); Albumin, Serum 3.6 gm/dL (3.5-5.0); Albumin/Globulin Ratio 1.4 (1.2-2.2); Alkaline Phosphatase 91 U/L (46-116); Anion Gap 9 (7-16); Aspartate Amino Transferase 32 U/L (0-34); BUN/Creatinine Ratio 17 Ratio (12-20); Bilirubin,Total 0.4 mg/dL (0.3-1.2); Blood Urea Nitrogen < 5 mg/dL (9-23); Calcium 9.5 mg/dL (8.3-10.6); Calcium (Corrected) 9.8 mg/dL (8.5-10.1); Carbon Dioxide 26.1 mMol/L (20.0-31.0); Chloride 109 mMol/L (98-107); Creatinine (Component) 0.3 mg/dL (0.6-1.3); Estimated Creatinine Clearance 159.7 mL/min (>60); Globulin 2.5 gm/dL (2.3-3.5); Glucose 102 mg/dL (74-106); Magnesium 1.8 mg/dL (1.6-2.6); Osmolality,Calculated 284 (275-295); Phosphorous 2.9 mg/dL (2.4-5.1); Potassium 2.8 mMol/L (3.4-5.1); Sodium 144 mMol/L (136-145); Total Protein 6.1 gm/dL (5.7-8.2); eGFR > 60 See Note
[2024-05-09] MEDS: MUPIROCIN OINT 2% 15 GM TUBE TOP ×3 (06:52→21:45)
[2024-05-09 08:00] VITALS: BP 156/92; PULSE 95; PULSE 96; RESP 18; TEMP 36.5; O2SAT 94
[2024-05-09] MEDS: HEPARIN SOD INJ 5000 UNIT/ML VIAL SC ×2 (09:09→20:44)
--- NOTE | 2024-05-09 09:10 | CHAP ---
Patient was non-verbal, but son was present and very helpful. Visited briefly with patient and gave encouragement and prayer.
[2024-05-09] MEDS: POTASSIUM CHLORIDE 20 mEq TABCR 40 MEQ PO (09:15)
[2024-05-09] MEDS: BALSAM PERU/CASTOR OIL (Venelex) 60 GM TUBE TOP ×2 (09:16→21:45)
[2024-05-09] MEDS: POTASSIUM CHL 10 mEq IVPB 10 MEQ/100 ML BAG 100 MEQ IV ×4 (10:11→13:37)
[2024-05-09] MEDS: Magnesium Sulfate 2 GM Ivpb 2 GM/50 ML BAG IV (10:11)
[2024-05-09] MEDS: SODIUM CHLORIDE 0.9% 1000 ML 1,000 ML 75 ML IV (10:29)
[2024-05-09 12:00] VITALS: BP 160/90; PULSE 96; PULSE 99; RESP 17; TEMP 36; O2SAT 99
[2024-05-09 12:26] LABS: Thyroid Stimulating Hormone 6.24 uIU/mL (0.55-4.78)
--- NOTE | 2024-05-09 13:20 | ESPR_ITS ---
<Statement entered by Raciel Watkins MD - 05/09/24 14:36> I saw and examined the patient, and I agree with current management stated by Dr Derrick John MD,PGY1. Plan of care was discussed with the attending physician and resident physician. Disclaimer: Despite multiple revisions, due to the dictation software being used, the document bellow may not be free of grammatical errors including phonetic/typographic errors. However, this does not deter from our commitment to providing health care in the patient's best interest in mind. Dr. June MD, PGY 2 Documentation for date of: 05/09/24 Subjective Subjective Interval history: No overnight events. Patient seen and examined at bedside. Patient shows no significant change since yesterday. Patient refusing all oral medication, switched p.o. to IV meds when available. Patient did not show any signs of abdominal tenderness. Bladder scan showed urinary retention 340 mL, patient received straight cath x 1, Q6 bladder scans ordered. MRI pending to assess for encephalopathy, following neuro recs. Exam Vital Signs Temp Pulse Resp BP Pulse Ox O2 Del Method 96.8 F 96 17 160/90 H 99 Room Air 05/09/24 12:00 05/09/24 12:00 05/09/24 12:00 05/09/24 12:00 05/09/24 12:05/09/24 12:00 Narrative Exam General Appearance: Alert & Oriented X0, well-nourished female who is nonverbal, who is lying in bed in no acute distress HEENT: Skull symmetrical and atraumatic. Conjunctivae pink and moist. Pupils equal, round, reactive to light and accommodation (PERRL). Mucosa pink, no discharge. Cardio: Normal Rate and Rhythm with S1 and S2 heart sounds. No murmurs or extra heart sounds auscultated. No bruits on carotid auscultation. No peripheral edema or cyanosis. Lungs: Symmetric with good expansion. Chest and back non-tender. Breath sounds vesicular without crackles, wheezing or rhonchi Abdomen: Non-tender, Non-distended, Normal Reactive Bowel Sounds Neuro: Yes Alert, NO cooperative, NO oriented to person, NO place, and No time. None verbal. Upper motor strength 3/5 and Lower motor strength 0/5. Hemiplegia and hemiparesis. Objective Labs 05/10/24 05:40 05/10/24 05:40 Labs: Laboratory Results - last 24 hr 05/09/24 05:25 WBC 6.2 RBC 3.91 L Hgb 12.8 Hct 36.7 MCV 94 MCH 32.7 MCHC 34.9 RDW Std Deviation 46.7 H Plt Count 353 Neut % (Auto) 43 Lymph % (Auto) 28 [place] % (Auto) 7 Eos % (Auto) 20 H Baso % (Auto) 1 Neut # (Auto) 2.6 Lymph # (Auto) 1.7 [place] # (Auto) 0.4 Eos # (Auto) 1.3 H Baso # (Auto) 0.0 Immature Gran # (Auto) 0.06 H Absolute Nucleated RBC 0.00 Immature Gran % 1 H Nucleated RBC % 0 Sodium 144 Potassium 2.8 L Chloride 109 H Carbon Dioxide 26.1 Anion Gap 9 BUN < 5 L Creatinine 0.3 L Estim Creat Clear Calc 159.7 eGFR > 60 BUN/Creatinine Ratio 17 Glucose 102 Calculated Osmolality 284 Calcium 9.5 Corrected Calcium 9.8 Phosphorus 2.9 Magnesium 1.8 Total Bilirubin 0.4 AST 32 ALT 25 Alkaline Phosphatase 91 Total Protein 6.1 Albumin 3.6 Globulin 2.5 Albumin/Globulin Ratio 1.4 TSH 6.24 H Quality Measures Quality Measures VTE prophylaxis Assessment & Plan Assessment Current Active Medications: Generic Name Dose Route Start Last Admin Trade Name [place] PRN Reason Stop Dose Admin Acetaminophen 650 mg 05/04/24 22:54 05/06/24 00:27 Acetaminophen 325 Mg Tablet PO 06/03/24 22:53 650 mg Q6H PRN Administration PAIN OR FEVER > 101 Amoxicillin/Clavulanate Potassium 1 tab 05/08/24 21:00 05/09/24 09:59 Amoxicillin/Pot Clav 875 Tablet PO 05/15/24 20:59 Not Given BID ROGER Aspirin 81 mg 05/05/24 09:00 05/09/24 09:59 Aspirin Ec 81 Mg Tabec PO 06/04/24 08:59 Not Given DAILY ROGER Balsam [place] Oil 0 gm 05/06/24 21:00 05/09/24 09:16 Balsam Sol/[place] Oil (Venelex) 60 Gm Tube TOP 06/05/24 20:59 1 applicatio BID ROGER Administration Clopidogrel Bisulfate 75 mg 05/05/24 09:00 05/09/24 09:59 Clopidogrel Bisulfate 75 Mg Tablet PO 06/04/24 08:59 Not Given QDAY ROGER Dextrose 25 ml 05/06/24 10:09 Dextrose 50%-Water Inj 50 Ml Syringe IV 06/05/24 10:08 Q15MIN PRN BG 50-70 responsive npo pt Dextrose 50 ml 05/06/24 10:09 Dextrose 50%-Water Inj 50 Ml Syringe IV 06/05/24 10:08 Q15MIN PRN BG <50 OR BG <70 & pt unresponsive Duloxetine HCl 30 mg 05/05/24 09:00 05/09/24 09:59 Duloxetine Hcl 30 Mg Capsule PO 06/04/24 08:59 Not Given QDAY ROGER Fluconazole 800 mg 05/05/24 09:00 05/09/24 09:59 Fluconazole 100 Mg Tablet PO 05/12/24 08:59 Not Given QDAY ROGER Glucagon 1 mg 05/06/24 10:09 Glucagon Inj 1 Mg Vial IM Q15MIN PRN BG <70, and no IV access Heparin Sodium (Porcine) 5,000 unit 05/04/24 23:00 05/09/24 09:09 Heparin Sod Inj 5000 Unit/Ml Vial SC 05/18/24 22:59 5,000 unit Q12HR ROGER Administration Sodium Chloride 1,000 mls @ 75 mls/hr 05/04/24 23:00 05/09/24 10:29 Ns IV 06/03/24 22:59 75 mls/hr .[id number] ROGER Administration Potassium Chloride 10 meq in 100 mls @ 100 mls/hr 05/09/24 09:58 05/09/24 12:43 Kcl Ivpb IV 05/09/24 13:57 100 mls/hr Q1H ROGER Administration Fluconazole 800 mg in 400 mls @ 100 mls/hr 05/09/24 13:14 Diflucan/Ns Ivpb IV 05/16/24 13:13 QDAY ROGER Lisinopril 20 mg 05/07/24 09:00 05/09/24 10:00 Lisinopril 20 Mg Tablet PO 06/06/24 08:59 Not Given QDAY ROGER Magnesium Hydroxide 30 ml 05/05/24 08:07 Milk Of Magnesia Susp 30 Ml Udc PO 06/04/24 08:06 QDAY PRN CONSTIPATION Protocol Meclizine HCl 25 mg 05/04/24 23:08 Meclizine Hcl 25 Mg Tablet PO 06/03/24 23:07 Q12H PRN Dizziness Mupirocin 0 gm 05/06/24 09:00 05/09/24 06:52 Mupirocin Oint 2% 15 Gm Tube TOP 05/11/24 08:59 1 applicatio TID ROGER Administration Sennosides 8.8 mg 05/05/24 08:07 Sennosides Syrup 8.8 Mg/5 Ml Udc PO 06/04/24 08:06 QDAY PRN CONSTIPATION Protocol Plan 54-year-old female with 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 #Acute encephalopathy Patient appears less responsive on exam than previous day. Difficult to ascertain as patient baseline mental status has severely deteriorated. CT head negative. Neuroconsulted. Cefepime discontinued. -MRI head/brain with/without contrast -Neurology consulted, appreciate recommendations #Pressure Ulcer #Sepsis likely secondary to pressure ulcer, improved Patient presented from SNF due to fever of 102.1, tachycardic with heart rate of 126, labs revealed leukocytosis of 11.5. Lactic acid and Pro-Ramesh is negative Patient met 3 out of 4 SIRS criteria Blood Cultures Negative after 48 hours Chest x-ray is negative for PNA. UA is negative for UTI. Monospot, rapid strep, RSV negative. In ED patient received IVF, ABX. CT A/P showed large amount of stool, possible proctitis. Blood cultures negative x 48 hours. Culture positive for Staph aureus, but minimal colony-forming units, likely colonization. Suspect buttock ulcer as source of infection. MRSA screen positive, patient started on mupirocin. -Augmentin 875 p.o. twice daily, patient refused p.o. meds -Rocephin 1 g IV daily -MRSA screen #History of hypertension Home medication is Lisinopril 10 mg qday. Patient has have elevated systolic blood pressure of 160/95. Increased Lisinopril. -Home dose of Lisinopril 10 mg increased to 20 mg daily #?Autoimmune encephalitis Per previous chart review, hospitalist team was consulted for autoimmune encephalitis, brain MRI showed prominent foci of increased signal in the white matter, demyelinating disease pattern. Repeat MRI with contrast demonstrated 17mm acute infarct of left basal ganglia. On February, autoimmune encephalitis panel VGKC and LGI1 antibody was sent, all negative Plan -Referral with Dr. Lai, Neurology, as outpatient upon discharge, will follow. #Coccidioides meningitis -Continue fluconazole 800 daily (IV) #Electrolyte imblance Continue to replace electrolytes as necessary. Plan: -Continue to monitor, replace as needed #CVA w/ hemiplegia and hemiparesis #Hyperlipidemia Plan -Resume home medication Aspirin and Plavix -Consider resuming Atorvastatin 80 mg HS #Fibromyalgia #Migraines -Continue home medications: meclizine, duloxetine DVT prophylaxis: Heparin GI prophylaxis: Protonix Diet: Cardiac Lines: Peripheral IV Code status: Full code Plan of care discussed with senior resident Dr. Watkins PGY?[address] Izaguirre. Devyn Andrews MD PGY?1 Attending Provider Attestation/Addendum I have examined the patient, reviewed labs and imaging findings, discussed the case with the resident(s), and reviewed entered orders. I agree with the plan of care as outlined in this note, with these additional summaries/recommendations: Patient seen at bedside. She still appears to be encephalopathic this morning. We will order additional metabolic workup. Patient is pending MRI brain with contrast & EEG. Neurology following. Continue fluconazole for history of cocci meningitis. Potassium continues to downtrend likely secondary to poor oral intake. Replacement given and repeat potassium this afternoon. Urine culture and decubitus ulcer culture showed Staph aureus sensitive to Rocephin which we will continue. Continue aspirin plus Plavix for history of CVA. Family request to take patient home with home health when medically cleared for discharge. Continue lisinopril for history of hypertension. Repeat hematology and chemistry panel in AM. Dr. Izaguirre
[2024-05-09 14:41] LABS: Anion Gap 7 (7-16); BUN/Creatinine Ratio 10 Ratio (12-20); Blood Urea Nitrogen 5 mg/dL (9-23); Calcium 9.3 mg/dL (8.3-10.6); Carbon Dioxide 26.6 mMol/L (20.0-31.0); Chloride 106 mMol/L (98-107); Creatinine (Component) 0.5 mg/dL (0.6-1.3); Estimated Creatinine Clearance 95.8 mL/min (>60); Glucose 175 mg/dL (74-106); Osmolality,Calculated 280 (275-295); Potassium 3.6 mMol/L (3.4-5.1); Sodium 140 mMol/L (136-145); eGFR > 60 See Note
[2024-05-09] MEDS: FLUCONAZOLE/NS 400 MG IVPB 800 MG/400 ML BAG 100 MG IV (14:53)
[2024-05-09 16:00] VITALS: BP 168/100; PULSE 92; PULSE 93; RESP 21; TEMP 36.6; O2SAT 96
--- NOTE | 2024-05-09 16:47 | PC.NURSE ---
MD Andrews made aware of BP 168/100 pulse, orders to monitor BP and DC IV fluids.
[2024-05-09 20:00] VITALS: BP 160/94; PULSE 111; RESP 23; TEMP 36.4; O2SAT 96
[2024-05-09] MEDS: cefTRIAXone/D5w 1gm IV premix 50 ML IV (20:44)
--- NOTE | 2024-05-09 21:13 | PD.VPROG1 ---
Telemedicine visit statement This visit was conducted with the use of phone was obtained on 05/09/24. Documentation for date of: 05/09/24 Subjective Subjective Interval history: Patient is in medsurg with family. aphasia and right dense hemiplegia unchanged. Refuses to take meds /diet most of the day today, trying to tightly close her mouth. Virtual exam Vital Signs Temp Pulse Resp BP Pulse Ox O2 Del Method 97.8 F 92 21 H 168/100 H 96 Room Air 05/09/24 16:00 05/09/24 16:00 05/09/24 16:00 05/09/24 16:00 05/09/24 16:00 05/09/24 16:00 Objective Labs 05/09/24 05:25 05/09/24 13:51 Labs: Laboratory Results - last 24 hr 05/09/24 05/09/24 05:25 13:51 WBC 6.2 RBC 3.91 L Hgb 12.8 Hct 36.7 MCV 94 MCH 32.7 MCHC 34.9 RDW Std Deviation 46.7 H Plt Count 353 Neut % (Auto) 43 Lymph % (Auto) 28 [place] % (Auto) 7 Eos % (Auto) 20 H Baso % (Auto) 1 Neut # (Auto) 2.6 Lymph # (Auto) 1.7 [place] # (Auto) 0.4 Eos # (Auto) 1.3 H Baso # (Auto) 0.0 Immature Gran # (Auto) 0.06 H Absolute Nucleated RBC 0.00 Immature Gran % 1 H Nucleated RBC % 0 Sodium 144 140 Potassium 2.8 L 3.6 D Chloride 109 H 106 Carbon Dioxide 26.1 26.6 Anion Gap 9 7 BUN < 5 L 5 L Creatinine 0.3 L 0.5 L Estim Creat Clear Calc 159.7 95.8 eGFR > 60 > 60 BUN/Creatinine Ratio 17 10 L Glucose 102 175 H D Calculated Osmolality 284 280 Calcium 9.5 9.3 Corrected Calcium 9.8 Phosphorus 2.9 Magnesium 1.8 Total Bilirubin 0.4 AST 32 ALT 25 Alkaline Phosphatase 91 Total Protein 6.1 Albumin 3.6 Globulin 2.5 Albumin/Globulin Ratio 1.4 TSH 6.24 H Assessment & Plan Assessment (1) Aphasia: worsened after stopping weaning from steroids MRI brain showed nothing acute but noted prominent chronic white matter changes and ventriculomegaly Will get IR to do LP and send the CSF analysis hoping that AE panel will be sent this time to [facility] lab Consider high dose steroids/IVIG as it helped significantly last time. (2) Recent cerebrovascular accident: With persistent dense right-sided weakness and aphasia Continue with aspirin (3) Essential (primary) hypertension: Continue with the blood pressure control (4) Chronic migraine: By history, stable now. 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
[2024-05-10] VITALS (7 sets, daily range): BP systolic 125–169; BP diastolic 64–99; PULSE 68–102; RESP 16–28; TEMP 36.3–36.7; O2SAT 93–97
[2024-05-10] MEDS: MUPIROCIN OINT 2% 15 GM TUBE TOP ×3 (05:20→22:58)
[2024-05-10] MEDS: SODIUM CHLORIDE 0.9% 1000 ML 1,000 ML 75 ML IV (05:34)
[2024-05-10 06:15] LABS: Basophils # (Auto) 0.1 Thou/mm3 (0.0-0.2); Basophils % (Auto) 1 % (0-2.5); Mean Corpuscular Volume 95 fL (80-100); Monocytes # (Auto) 0.7 Thou/mm3 (0.0-0.8); Monocytes % (Auto) 8 % (0-12); Nucleated Red Blood Cell % 0 /100 WBC (0); White Blood Count 8.4 Thou/mm3 (3.6-11.0)
[2024-05-10 06:17] LABS: Eosinophils # (Auto) 1.3 Thou/mm3 (0.0-0.5); Eosinophils % (Auto) 16 % (0-10); Hematocrit 34.9 % (36.0-46.0); Hemoglobin 12.1 g/dL (12.0-16.0); Immature Granulocytes % (Auto) 1 % (0-0); Lymphocytes # (Auto) 2.6 Thou/mm3 (1.0-4.8); Lymphocytes % (Auto) 32 % (10-50); Mean Corpuscular HGB Conc 34.7 g/dl (31.0-37.0); Neutrophils # (Auto) 3.6 Thou/mm3 (1.8-7.7); Neutrophils % (Auto) 43 % (37-80); Platelet Count 429 Thou/mm3 (140-440); RDW Standard Deviation 48.1 fL (36.4-46.3); Red Blood Count 3.67 Miln/mm3 (4.00-5.20)
[2024-05-10 06:41] LABS: Alanine Aminotransferase 27 U/L (10-49); Albumin, Serum 3.6 gm/dL (3.5-5.0); Albumin/Globulin Ratio 1.6 (1.2-2.2); Alkaline Phosphatase 86 U/L (46-116); Anion Gap 9 (7-16); Aspartate Amino Transferase 27 U/L (0-34); BUN/Creatinine Ratio 13 Ratio (12-20); Bilirubin,Total 0.4 mg/dL (0.3-1.2); Blood Urea Nitrogen < 5 mg/dL (9-23); Calcium 9.6 mg/dL (8.3-10.6); Calcium (Corrected) 9.9 mg/dL (8.5-10.1); Carbon Dioxide 28.2 mMol/L (20.0-31.0); Chloride 107 mMol/L (98-107); Creatinine (Component) 0.4 mg/dL (0.6-1.3); Estimated Creatinine Clearance 119.8 mL/min (>60); Globulin 2.3 gm/dL (2.3-3.5); Glucose 100 mg/dL (74-106); Osmolality,Calculated 284 (275-295); Phosphorous 2.9 mg/dL (2.4-5.1); Potassium 3.4 mMol/L (3.4-5.1); Sodium 144 mMol/L (136-145); Total Protein 5.9 gm/dL (5.7-8.2); eGFR > 60 See Note
--- NOTE | 2024-05-10 07:56 | XR_ITS ---
Examination: IR fluoroscopically guided diagnostic lumbar puncture AP lumbar spine 3 views Fluoroscopy Exam date and time: May 10, 2024 1338 hours INDICATIONS: Diagnosis encephalopathy, altered mental status this week TECHNIQUE AND FINDINGS: Informed consent provided. Timeout performed. Skin prepped over the lower back and sterile drape applied hand hygiene 1% lidocaine administered for local anesthesia Utilizing fluoroscopic guidance successful diagnostic lumbar puncture L5-S1 level Opening pressure 6 10 cc clear fluid withdrawn Estimated blood loss 0 cc IMPRESSION: Successful IR fluoroscopically guided diagnostic lumbar puncture Fluoroscopy 0.7 minutes radiation dose 29.01 milligray 3 spot fluoroscopic lumbar spine films
[2024-05-10] MEDS: cefTRIAXone/D5w 1gm IV premix 50 ML IV (09:34)
[2024-05-10] MEDS: DULoxetine HCL 30 MG CAPSULE PO (09:54)
[2024-05-10] MEDS: Lisinopril 20 MG TABLET PO (09:54)
[2024-05-10] MEDS: FLUCONAZOLE/NS 400 MG IVPB 800 MG/400 ML BAG 100 MG IV (10:45)
--- NOTE | 2024-05-10 13:38 | CHAP ---
10:30 AM Visited by spiritual care volunteer Provided prayer for Patient.
[2024-05-10 14:20] LABS: Coccid Serology, CF CSF (UCD)* See Sep Rpt
--- NOTE | 2024-05-10 14:21 | ESPR_ITS ---
<Statement entered by Raciel Watkins MD - 05/10/24 15:13> Patient was seen and examined at the bedside this morning. Patient family was also present at the bedside. Overnight patient was retaining urine in the bladder almost for 10 cc therefore straight catheter in and out was performed. X-ray guided LP was ordered by neurologist to evaluate further for autoimmune encephalitis. Considering high-dose steroids,IVIG and awaiting EEG. Patient continues to remain mildly altered. Family was updated that we will proceed with LP and likely wait for results. Potassium was repleted. Vitals were stable and rest of the labs were unremarkable. All labs and orders were reviewed. I saw and examined the patient, and I agree with current management stated by Dr Dr Juliana MD,PGY1. Plan of care was discussed with the attending physician and resident physician. Disclaimer: Despite multiple revisions, due to the dictation software being used, the document bellow may not be free of grammatical errors including phonetic/typographic errors. However, this does not deter from our commitment to providing health care in the patient's best interest in mind. Dr. June MD, PGY 2 Documentation for date of: 05/10/24 Subjective Subjective Interval history: No overnight events. Patient seen and examined at bedside. Patient was more alert and interactive, emotionally labile. Began sobbing during examination, mood improved when friends came to visit. Patient has been willing to take p.o. meds today. Following neuro recs. Planning for lumbar puncture with CSF studies. Considering high-dose steroids and/or IVIG. EEG pending. Exam Vital Signs Temp Pulse Resp BP Pulse Ox O2 Del Method 97.5 F 97 16 153/99 H 95 Room Air 05/10/24 12:00 05/10/24 12:05/10/24 12:05/10/24 12:05/10/24 12:05/10/24 12:00 Narrative Exam General Appearance: Alert & Oriented X0, well-nourished female who is nonverbal, who is lying in bed in no acute distress HEENT: Skull symmetrical and atraumatic. Conjunctivae pink and moist. Pupils equal, round, reactive to light and accommodation (PERRL). Mucosa pink, no discharge. Cardio: Normal Rate and Rhythm with S1 and S2 heart sounds. No murmurs or extra heart sounds auscultated. No bruits on carotid auscultation. No peripheral edema or cyanosis. Lungs: Symmetric with good expansion. Chest and back non-tender. Breath sounds vesicular without crackles, wheezing or rhonchi Abdomen: Non-tender, Non-distended, Normal Reactive Bowel Sounds Neuro: Yes Alert, NO cooperative, NO oriented to person, NO place, and No time. None verbal. Upper motor strength 3/5 and Lower motor strength 1/5. Hemiplegia and hemiparesis. Objective Labs 05/11/24 05:05 05/11/24 05:05 Labs: Laboratory Results - last 24 hr 05/09/24 05/10/24 13:51 05:40 WBC 8.4 RBC 3.67 L Hgb 12.1 Hct 34.9 L MCV 95 MCH 33.0 MCHC 34.7 RDW Std Deviation 48.1 H Plt Count 429 D Neut % (Auto) 43 Lymph % (Auto) 32 [place] % (Auto) 8 Eos % (Auto) 16 H Baso % (Auto) 1 Neut # (Auto) 3.6 Lymph # (Auto) 2.6 [place] # (Auto) 0.7 Eos # (Auto) 1.3 H Baso # (Auto) 0.1 Immature Gran # (Auto) 0.10 H Absolute Nucleated RBC 0.00 Immature Gran % 1 H Nucleated RBC % 0 Sodium 140 144 Potassium 3.6 D 3.4 Chloride 106 107 Carbon Dioxide 26.6 28.2 Anion Gap 7 9 BUN 5 L < 5 L Creatinine 0.5 L 0.4 L Estim Creat Clear Calc 95.8 119.8 eGFR > 60 > 60 BUN/Creatinine Ratio 10 L 13 Glucose 175 H D 100 D Calculated Osmolality 280 284 Calcium 9.3 9.6 Corrected Calcium 9.9 Phosphorus 2.9 Magnesium 2.0 Total Bilirubin 0.4 AST 27 ALT 27 Alkaline Phosphatase 86 Total Protein 5.9 Albumin 3.6 Globulin 2.3 Albumin/Globulin Ratio 1.6 Quality Measures Quality Measures VTE prophylaxis Assessment & Plan Assessment Current Active Medications: Generic Name Dose Route Start Last Admin Trade Name Freq PRN Reason Stop Dose Admin Acetaminophen 650 mg 05/04/24 22:54 05/06/24 00:27 Acetaminophen 325 Mg Tablet PO 06/03/24 22:53 650 mg Q6H PRN Administration PAIN OR FEVER > 101 Amoxicillin/Clavulanate Potassium 1 tab 05/08/24 21:00 05/09/24 09:59 Amoxicillin/Pot Clav 875 Tablet PO 05/15/24 20:59 Not Given BID ROGER Aspirin 81 mg 05/05/24 09:00 05/09/24 09:59 Aspirin Ec 81 Mg Tabec PO 06/04/24 08:59 Not Given DAILY ROGER Balsam Sol/[place] Oil 0 gm 05/06/24 21:00 05/09/24 21:45 Balsam Sol/[place] Oil (Venelex) 60 Gm Tube TOP 06/05/24 20:59 1 applicatio BID ROGER Administration Clopidogrel Bisulfate 75 mg 05/05/24 09:00 05/09/24 09:59 Clopidogrel Bisulfate 75 Mg Tablet PO 06/04/24 08:59 Not Given QDAY ROGER Dextrose 25 ml 05/06/24 10:09 Dextrose 50%-Water Inj 50 Ml Syringe IV 06/05/24 10:08 Q15MIN PRN BG 50-70 responsive npo pt Dextrose 50 ml 05/06/24 10:09 Dextrose 50%-Water Inj 50 Ml Syringe IV 06/05/24 10:08 Q15MIN PRN BG <50 OR BG <70 & pt unresponsive Duloxetine HCl 30 mg 05/05/24 09:00 05/10/24 09:54 Duloxetine Hcl 30 Mg Capsule PO 06/04/24 08:59 30 mg QDAY ROGER Administration Fluconazole 800 mg 05/05/24 09:00 05/09/24 09:59 Fluconazole 100 Mg Tablet PO 05/12/24 08:59 Not Given QDAY ROGER Glucagon 1 mg 05/06/24 10:09 Glucagon Inj 1 Mg Vial IM Q15MIN PRN BG <70, and no IV access Heparin Sodium (Porcine) 5,000 unit 05/04/24 23:00 05/10/24 10:50 Heparin Sod Inj 5000 Unit/Ml Vial SC 05/18/24 22:59 Not Given Q12HR ROGER Sodium Chloride 1,000 mls @ 75 mls/hr 05/04/24 23:00 05/10/24 05:34 Ns IV 06/03/24 22:59 75 mls/hr .[id number] ROGER Administration Fluconazole 800 mg in 400 mls @ 100 mls/hr 05/09/24 13:14 05/10/24 10:45 Diflucan/Ns Ivpb IV 05/16/24 13:13 100 mls/hr QDAY ROGER Administration Ceftriaxone Sodium/Dextrose 50 mls @ 100 mls/hr 05/09/24 18:30 05/10/24 09:34 Rocephin/D5w 1gm Iv Premix IV 05/16/24 18:29 100 mls/hr QDAY ROGER Administration Lisinopril 20 mg 05/07/24 09:00 05/10/24 09:54 Lisinopril 20 Mg Tablet PO 06/06/24 08:59 20 mg QDAY ROGER Administration Magnesium Hydroxide 30 ml 05/05/24 08:07 Milk Of Magnesia Susp 30 Ml Udc PO 06/04/24 08:06 QDAY PRN CONSTIPATION Protocol Meclizine HCl 25 mg 05/04/24 23:08 Meclizine Hcl 25 Mg Tablet PO 06/03/24 23:07 Q12H PRN Dizziness Mupirocin 0 gm 05/06/24 09:00 05/10/24 05:20 Mupirocin Oint 2% 15 Gm Tube TOP 05/11/24 08:59 1 applicatio TID ROGER Administration Sennosides 8.8 mg 05/05/24 08:07 Sennosides Syrup 8.8 Mg/5 Ml Udc PO 06/04/24 08:06 QDAY PRN CONSTIPATION Protocol Plan 54-year-old female with 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 #Acute encephalopathy #?Autoimmune encephalitis Patient appears less responsive on exam than previous day. Difficult to ascertain as patient baseline mental status has severely deteriorated. CT head negative. Neuroconsulted. Cefepime discontinued. MRI head/brain limited by patient movement, did not show any acute pathology. Chronic white matter changes. On February, autoimmune encephalitis panel VGKC and LGI1 antibody was sent, all negative. -Neurology consulted, appreciate recommendations -Lumbar puncture with CSF pending -EEG taken, results pending -Considering high-dose steroids/IVIG #Pressure Ulcer #Sepsis likely secondary to pressure ulcer, improved Patient presented from SNF due to fever of 102.1, tachycardic with heart rate of 126, labs revealed leukocytosis of 11.5. Lactic acid and Pro-Ramesh is negative Patient met 3 out of 4 SIRS criteria Blood Cultures Negative after 48 hours Chest x-ray is negative for PNA. UA is negative for UTI. Monospot, rapid strep, RSV negative. In ED patient received IVF, ABX. CT A/P showed large amount of stool, possible proctitis. Blood cultures negative x 48 hours. Culture positive for Staph aureus, but minimal colony-forming units, likely colonization. Suspect buttock ulcer as source of infection. MRSA screen positive, patient started on mupirocin. -Augmentin 875 p.o. twice daily, patient refused p.o. meds -Rocephin 1 g IV daily #History of hypertension Home medication is Lisinopril 10 mg qday. Patient has have elevated systolic blood pressure of 160/95. Increased Lisinopril. -Home dose of Lisinopril 10 mg increased to 20 mg daily #Coccidioides meningitis -Continue fluconazole 800 daily (IV) #Electrolyte imblance Continue to replace electrolytes as necessary. Plan: -Continue to monitor, replace as needed #CVA w/ hemiplegia and hemiparesis #Hyperlipidemia Plan -Resume home medication Aspirin and Plavix -Consider resuming Atorvastatin 80 mg HS #Fibromyalgia #Migraines -Continue home medications: meclizine, duloxetine DVT prophylaxis: Heparin GI prophylaxis: Protonix Diet: Cardiac Lines: Peripheral IV Code status: Full code Plan of care discussed with senior resident Dr. Watkins PGY?[address] Izaguirre. Devyn Andrews MD PGY?1 Attending Provider Attestation/Addendum I have examined the patient, reviewed labs and imaging findings, discussed the case with the resident(s), and reviewed entered orders. I agree with the plan of care as outlined in this note, with these additional summaries/recommendations: Patient seen at bedside. No acute overnight events. Family present at bedside. Patient continues to be aphasic although appears to understand some aspects of her care. MRI brain showed no acute infarct, mass effect but did reveal prominent white matter changes. Patient will go for lumbar puncture today. Neurology following. Continue fluconazole for history of cocci meningitis. Hypokalemia now resolved. Urine culture and decubitus ulcer culture showed Staph aureus sensitive to Rocephin which we will continue. Continue aspirin plus Plavix for history of CVA. Family request to take patient home with home health when medically cleared for discharge. Continue lisinopril for history of hypertension. Repeat hematology and chemistry panel in AM. Dr. Izaguirre
[2024-05-10 14:59] LABS: Protein Total,CSF 95 mg/dL (8-32)
[2024-05-10 15:01] LABS: Glucose,CSF 29 mg/dL (40-70)
[2024-05-10 15:08] LABS: CSF Gram Stain Alert Gram Stain Completed
[2024-05-10 15:21] LABS: CSF Cell Count Tube # Tube # 4; CSF Color Colorless (Colorless); CSF, Appearance Clear (Clear)
[2024-05-10 15:22] LABS: CSF Mononuclear 97 %; CSF Polynuclear WBC 3 %; CSF Red Blood Cell 0 /cmm; CSF White Blood Cell 71 /cmm
[2024-05-10] MEDS: CLOPIDOGREL BISULFATE 75 MG TABLET PO (15:53)
[2024-05-10] MEDS: ASPIRIN EC 81 MG TABEC PO (15:53)
[2024-05-10] MEDS: BALSAM PERU/CASTOR OIL (Venelex) 60 GM TUBE TOP ×2 (15:54→20:18)
[2024-05-10] MEDS: HEPARIN SOD INJ 5000 UNIT/ML VIAL SC (20:15)
[2024-05-10] MEDS: TUBERCULIN PPD INJ 5 UNIT/0.1 ML DOSE ID (20:16)
[2024-05-11] VITALS (10 sets, daily range): BP systolic 127–156; BP diastolic 77–89; PULSE 87–97; RESP 16–24; TEMP 36.3–36.6; O2SAT 95–97
[2024-05-11] MEDS: SODIUM CHLORIDE 0.9% 1000 ML 1,000 ML 75 ML IV (01:32)
[2024-05-11] MEDS: MUPIROCIN OINT 2% 15 GM TUBE TOP (05:51)
[2024-05-11 06:08] LABS: Basophils # (Auto) 0.1 Thou/mm3 (0.0-0.2); Basophils % (Auto) 1 % (0-2.5); Eosinophils # (Auto) 1.8 Thou/mm3 (0.0-0.5); Eosinophils % (Auto) 22 % (0-10); Hematocrit 37.3 % (36.0-46.0); Hemoglobin 12.8 g/dL (12.0-16.0); Immature Granulocytes % (Auto) 1 % (0-0); Immature Granulocytes Auto 0.09 Thou/mm3 (0.00-0.00); Lymphocytes # (Auto) 2.1 Thou/mm3 (1.0-4.8); Lymphocytes % (Auto) 27 % (10-50); Mean Corpuscular HGB Conc 34.3 g/dl (31.0-37.0); Mean Corpuscular Hemoglobin 32.2 pg (25.0-35.0); Mean Corpuscular Volume 94 fL (80-100); Monocytes # (Auto) 0.5 Thou/mm3 (0.0-0.8); Monocytes % (Auto) 7 % (0-12); Neutrophils # (Auto) 3.4 Thou/mm3 (1.8-7.7); Neutrophils % (Auto) 43 % (37-80); Nucleated Red Blood Cell % 0 /100 WBC (0); Platelet Count 342 Thou/mm3 (140-440); RDW Standard Deviation 47.6 fL (36.4-46.3); Red Blood Count 3.97 Miln/mm3 (4.00-5.20); White Blood Count 7.9 Thou/mm3 (3.6-11.0)
[2024-05-11 06:43] LABS: Alanine Aminotransferase 24 U/L (10-49); Albumin, Serum 3.7 gm/dL (3.5-5.0); Albumin/Globulin Ratio 1.6 (1.2-2.2); Alkaline Phosphatase 90 U/L (46-116); Anion Gap 8 (7-16); Aspartate Amino Transferase 18 U/L (0-34); BUN/Creatinine Ratio 33 Ratio (12-20); Bilirubin,Total 0.3 mg/dL (0.3-1.2); Blood Urea Nitrogen 10 mg/dL (9-23); Calcium 9.6 mg/dL (8.3-10.6); Calcium (Corrected) 9.8 mg/dL (8.5-10.1); Carbon Dioxide 27.8 mMol/L (20.0-31.0); Chloride 104 mMol/L (98-107); Creatinine (Component) 0.3 mg/dL (0.6-1.3); Estimated Creatinine Clearance 159.7 mL/min (>60); Globulin 2.3 gm/dL (2.3-3.5); Glucose 106 mg/dL (74-106); Magnesium 1.8 mg/dL (1.6-2.6); Osmolality,Calculated 278 (275-295); Phosphorous 2.8 mg/dL (2.4-5.1); Potassium 3.1 mMol/L (3.4-5.1); Sodium 140 mMol/L (136-145); eGFR > 60 See Note
--- NOTE | 2024-05-11 07:35 | ESPR_ITS ---
Documentation for date of: 05/11/24 Subjective Subjective Interval history: Patient was seen in [facility] today with her family at the bedside. Continues to have aphasia and dense right hemiplegia and abnormal involuntary movements involving the face and left UE. Exam - Neurology Vital Signs Temp Pulse Resp BP Pulse Ox O2 Del Method 97.5 F 96 16 156/89 H 96 Room Air 05/11/24 04:00 05/11/24 04:00 05/11/24 04:00 05/11/24 04:00 05/11/24 04:00 05/11/24 04:00 Narrative Exam GENERAL APPEARANCE: Well developed, well-nourished in no acute distress. HEENT: Normocephalic, atraumatic, extraocular movements intact. Pupils: Equal reacting to light NECK: Supple, no JVD or bruits. CARDIOVASULAR: Heart: S1, S2 heard, regular without S3-S4 or murmur no rubs or gallops. LUNGS/CHEST: Clear to auscultation bilaterally. No rails, rhonchi, or wheezing. Normal inspection. ABDOMEN: Soft, nontender, with normal bowel sounds. No pulsatile masses. No rebound, rigidity, or guarding. Normal inspection and palpation. EXTREMITIES: Normal inspection and palpation. No edema, clubbing or cyanosis. SKIN: Warm and dry without rashes. Normal inspection. MUSCULOSKELETAL: No cervical, thoracic, lumbar or midline bony tenderness. Normal inspection. NEURO: Alert, awake and aphasic, but starting to verbalize, Dense right hemiplegia noted. Purposeful movements noted in the left upper and lower extremities noted.. no signs of meningeal irritation noted. Dystonia noted in the face and the left UE today. PSYCHIATRIC: normal mood and affect. Objective Labs 05/11/24 05:05 05/11/24 05:05 Labs: Laboratory Results - last 24 hr 05/10/24 05/11/24 13:45 05:05 WBC 7.9 RBC 3.97 L Hgb 12.8 Hct 37.3 MCV 94 MCH 32.2 MCHC 34.3 RDW Std Deviation 47.6 H Plt Count 342 D Neut % (Auto) 43 Lymph % (Auto) 27 [place] % (Auto) 7 Eos % (Auto) 22 H Baso % (Auto) 1 Neut # (Auto) 3.4 Lymph # (Auto) 2.1 [place] # (Auto) 0.5 Eos # (Auto) 1.8 H Baso # (Auto) 0.1 Immature Gran # (Auto) 0.09 H Absolute Nucleated RBC 0.00 Immature Gran % 1 H Nucleated RBC % 0 Sodium 140 Potassium 3.1 L Chloride 104 Carbon Dioxide 27.8 Anion Gap 8 BUN 10 Creatinine 0.3 L Estim Creat Clear Calc 159.7 eGFR > 60 BUN/Creatinine Ratio 33 H Glucose 106 Calculated Osmolality 278 Calcium 9.6 Corrected Calcium 9.8 Phosphorus 2.8 Magnesium 1.8 Total Bilirubin 0.3 AST 18 ALT 24 Alkaline Phosphatase 90 Total Protein 6.0 Albumin 3.7 Globulin 2.3 Albumin/Globulin Ratio 1.6 CSF Appearance Clear CSF Color Colorless CSF WBC 71 CSF RBC 0 CSF Cell Count Tube # Tube # 4 CSF Mononuclear WBCs 97 CSF Polynuclear WBCs 3 CSF Glucose 29 L* D CSF Total Protein 95 H Assessment & Plan Assessment and plan (1) Aphasia: Status: Chronic Assessment and plan: worsened after stopping weaning from steroids, now started with faciobrachial dystonia like last admission MRI brain showed t2 hyperintense signal changes perventricular and pericallosal and left frontoparietal areas. Repeat CSF analysis showed low glucose and high protein and lymphocytosis: seen in AE, TB, Cocci and viral encephalitis and Sarcoidosis. Will make sure that the CSF for AE panel will be sent this time to [facility] lab will start her on high dose steroids: IV solumedrol 1 gram for 5 days with PPI prophylaxis Continue PT/ST as well. Discussed the above plan with family in detail at the bedside. (2) Recent cerebrovascular accident: Status: Chronic Assessment and plan: With persistent dense right-sided weakness and aphasia Continue with aspirin (3) Essential (primary) hypertension: Status: Acute Assessment and plan: Continue with the blood pressure control (4) Chronic migraine: Status: Chronic Assessment and plan: By history, stable now. (5) Coccidioidomycosis meningitis: Status: Acute Assessment and plan: continue with the Diflucan 800 mg daily for life with close monitoring of liver enzymes.
[2024-05-11] MEDS: cefTRIAXone/D5w 1gm IV premix 50 ML IV (08:07)
[2024-05-11] MEDS: HEPARIN SOD INJ 5000 UNIT/ML VIAL SC ×2 (08:08→21:18)
[2024-05-11] MEDS: CLOPIDOGREL BISULFATE 75 MG TABLET PO (08:08)
[2024-05-11] MEDS: Lisinopril 20 MG TABLET PO (08:08)
[2024-05-11] MEDS: DULoxetine HCL 30 MG CAPSULE 60 MG PO (08:08)
[2024-05-11] MEDS: ASPIRIN EC 81 MG TABEC PO (08:22)
[2024-05-11] MEDS: PANTOPRAZOLE INJ 40 MG VIAL IV (08:22)
[2024-05-11] MEDS: BALSAM PERU/CASTOR OIL (Venelex) 60 GM TUBE TOP ×2 (08:23→22:14)
[2024-05-11] MEDS: MethylPREDNISolone. 1,000 MG in SODIUM CHLORIDE 0.9% 250 ML 250 ML 266 MG IV (09:21)
[2024-05-11] MEDS: POTASSIUM CHLORIDE 20 mEq TABCR 40 MEQ PO (10:02)
[2024-05-11] MEDS: FLUCONAZOLE/NS 400 MG IVPB 400 MG/200 ML BAG 50 MG IV ×2 (10:44→21:12)
--- NOTE | 2024-05-11 11:20 | CHAP ---
Patient was visited by the Spiritual Care Volunteer from whom they received communion. (Volunteer was in the hospital from 10:10-11:20).
--- NOTE | 2024-05-11 13:02 | PC.NURSE ---
Pt bladder scan shows the 360cc volume staright in and on performed and received an output of 400cc
--- NOTE | 2024-05-11 13:39 | ESPR_ITS ---
<Statement entered by Raciel Watkins MD - 05/11/24 17:02> Patient was seen and examined at the bedside. Patient appeared more alert and interactive and able to follow commands. Neurology recommended to start high- dose steroids x 5 days as CSF analysis were significant showing elevated proteins and low glucose. EEG is taken and results are pending. Will continue with IV steroids for now. Continuing straight catheter in and out for urine retention. All labs and orders were reviewed. I saw and examined the patient, and I agree with current management stated by Dr Juliana MD,PGY1. Plan of care was discussed with the attending physician and resident physician. Disclaimer: Despite multiple revisions, due to the dictation software being used, the document bellow may not be free of grammatical errors including phonetic/typographic errors. However, this does not deter from our commitment to providing health care in the patient's best interest in mind. Dr. June MD, PGY 2 Documentation for date of: 05/11/24 Subjective Subjective Interval history: No overnight events. Patient seen examined at bedside. Patient appeared more alert and interactive, was able to follow simple commands. Patient was able to, with some difficulty, give one-word answers to simple questions. Neuro recommending high-dose IV steroids x 5 days. Exam Vital Signs Temp Pulse Resp BP Pulse Ox O2 Del Method 97.5 F 90 16 152/86 H 96 Room Air 05/11/24 11:55 05/11/24 11:55 05/11/24 11:55 05/11/24 11:55 05/11/24 11:55 05/11/24 11:55 Narrative Exam General Appearance: Alert & Oriented X0, well-nourished female who is nonverbal, who is lying in bed in no acute distress HEENT: Skull symmetrical and atraumatic. Conjunctivae pink and moist. Pupils equal, round, reactive to light and accommodation (PERRL). Mucosa pink, no discharge. Cardio: Normal Rate and Rhythm with S1 and S2 heart sounds. No murmurs or extra heart sounds auscultated. No bruits on carotid auscultation. No peripheral edema or cyanosis. Lungs: Symmetric with good expansion. Chest and back non-tender. Breath sounds vesicular without crackles, wheezing or rhonchi Abdomen: Non-tender, Non-distended, Normal Reactive Bowel Sounds Neuro: Patient alert and cooperative. None verbal. Upper motor strength 3/5 and Lower motor strength 1/5. Hemiplegia and hemiparesis. Objective Labs 05/12/24 05:23 05/12/24 05:23 Labs: Laboratory Results - last 24 hr 05/10/24 05/11/24 13:45 05:05 WBC 7.9 RBC 3.97 L Hgb 12.8 Hct 37.3 MCV 94 MCH 32.2 MCHC 34.3 RDW Std Deviation 47.6 H Plt Count 342 D Neut % (Auto) 43 Lymph % (Auto) 27 [place] % (Auto) 7 Eos % (Auto) 22 H Baso % (Auto) 1 Neut # (Auto) 3.4 Lymph # (Auto) 2.1 [place] # (Auto) 0.5 Eos # (Auto) 1.8 H Baso # (Auto) 0.1 Immature Gran # (Auto) 0.09 H Absolute Nucleated RBC 0.00 Immature Gran % 1 H Nucleated RBC % 0 Sodium 140 Potassium 3.1 L Chloride 104 Carbon Dioxide 27.8 Anion Gap 8 BUN 10 Creatinine 0.3 L Estim Creat Clear Calc 159.7 eGFR > 60 BUN/Creatinine Ratio 33 H Glucose 106 Calculated Osmolality 278 Calcium 9.6 Corrected Calcium 9.8 Phosphorus 2.8 Magnesium 1.8 Total Bilirubin 0.3 AST 18 ALT 24 Alkaline Phosphatase 90 Total Protein 6.0 Albumin 3.7 Globulin 2.3 Albumin/Globulin Ratio 1.6 CSF Appearance Clear CSF Color Colorless CSF WBC 71 CSF RBC 0 CSF Cell Count Tube # Tube # 4 CSF Mononuclear WBCs 97 CSF Polynuclear WBCs 3 CSF Glucose 29 L* D CSF Total Protein 95 H Misc Test Result Cancelled Quality Measures Quality Measures VTE prophylaxis Assessment & Plan Assessment Current Active Medications: Generic Name Dose Route Start Last Admin Trade Name Freq PRN Reason Stop Dose Admin Acetaminophen 650 mg 05/04/24 22:54 05/06/24 00:27 Acetaminophen 325 Mg Tablet PO 06/03/24 22:53 650 mg Q6H PRN Administration PAIN OR FEVER > 101 Amoxicillin/Clavulanate Potassium 1 tab 05/08/24 21:00 05/09/24 09:59 Amoxicillin/Pot Clav 875 Tablet PO 05/15/24 20:59 Not Given BID ROGER Aspirin 81 mg 05/05/24 09:00 05/11/24 08:22 Aspirin Ec 81 Mg Tabec PO 06/04/24 08:59 81 mg DAILY ROGER Administration Balsam [place] Oil 0 gm 05/06/24 21:00 05/11/24 08:23 Balsam Sol/[place] Oil (Venelex) 60 Gm Tube TOP 06/05/24 20:59 1 applicatio BID ROGER Administration Clopidogrel Bisulfate 75 mg 05/05/24 09:00 05/11/24 08:08 Clopidogrel Bisulfate 75 Mg Tablet PO 06/04/24 08:59 75 mg QDAY ROGER Administration Dextrose 25 ml 05/06/24 10:09 Dextrose 50%-Water Inj 50 Ml Syringe IV 06/05/24 10:08 Q15MIN PRN BG 50-70 responsive npo pt Dextrose 50 ml 05/06/24 10:09 Dextrose 50%-Water Inj 50 Ml Syringe IV 06/05/24 10:08 Q15MIN PRN BG <50 OR BG <70 & pt unresponsive Duloxetine HCl 60 mg 05/11/24 09:00 05/11/24 08:08 Duloxetine Hcl 30 Mg Capsule PO 06/10/24 08:59 60 mg QDAY ROGER Administration Fluconazole 800 mg 05/05/24 09:00 05/09/24 09:59 Fluconazole 100 Mg Tablet PO 05/12/24 08:59 Not Given QDAY ROGER Glucagon 1 mg 05/06/24 10:09 Glucagon Inj 1 Mg Vial IM Q15MIN PRN BG <70, and no IV access Heparin Sodium (Porcine) 5,000 unit 05/04/24 23:00 05/11/24 08:08 Heparin Sod Inj 5000 Unit/Ml Vial SC 05/18/24 22:59 5,000 unit Q12HR ROGER Administration Sodium Chloride 1,000 mls @ 75 mls/hr 05/04/24 23:00 05/11/24 01:32 Ns IV 06/03/24 22:59 75 mls/hr .[id number] ROGER Administration Ceftriaxone Sodium/Dextrose 50 mls @ 100 mls/hr 05/09/24 18:30 05/11/24 08:07 Rocephin/D5w 1gm Iv Premix IV 05/16/24 18:29 100 mls/hr QDAY ROGER Administration Methylprednisolone Sodium 266 mls @ 266 mls/hr 05/11/24 09:00 05/11/24 09:21 Succinate 1,000 mg/ Sodium IV 05/16/24 08:59 266 mls/hr Chloride QDAY ROGER Administration Fluconazole 400 mg in 200 mls @ 50 mls/hr 05/11/24 10:45 05/11/24 10:44 Diflucan/Ns Ivpb IV 05/18/24 10:44 50 mls/hr BID ROGER Administration Lisinopril 20 mg 05/07/24 09:00 05/11/24 08:08 Lisinopril 20 Mg Tablet PO 06/06/24 08:59 20 mg QDAY ROGER Administration Magnesium Hydroxide 30 ml 05/05/24 08:07 Milk Of Magnesia Susp 30 Ml Udc PO 06/04/24 08:06 QDAY PRN CONSTIPATION Protocol Meclizine HCl 25 mg 05/04/24 23:08 Meclizine Hcl 25 Mg Tablet PO 06/03/24 23:07 Q12H PRN Dizziness Pantoprazole Sodium 40 mg 05/11/24 09:00 05/11/24 08:22 Pantoprazole Inj 40 Mg Vial IV 06/10/24 08:59 40 mg QDAY ROGER Administration Sennosides 8.8 mg 05/05/24 08:07 Sennosides Syrup 8.8 Mg/5 Ml Udc PO 06/04/24 08:06 QDAY PRN CONSTIPATION Protocol Plan 54-year-old female with 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 #Acute encephalopathy #?Autoimmune encephalitis Patient appears less responsive on exam than previous day. Difficult to ascertain as patient baseline mental status has severely deteriorated. CT head negative. Neuroconsulted. Cefepime discontinued. MRI head/brain limited by patient movement, did not show any acute pathology. Chronic white matter changes. On February, autoimmune encephalitis panel VGKC and LGI1 antibody was sent, all negative. CSF showed low glucose and high protein. Neuro recommended high-dose steroids. -Neurology consulted, appreciate recommendations -EEG taken, results pending -Solu-Medrol 1 g IV daily (05/11-05/16) #Pressure Ulcer #Sepsis likely secondary to pressure ulcer, improved Patient presented from SNF due to fever of 102.1, tachycardic with heart rate of 126, labs revealed leukocytosis of 11.5. Lactic acid and Pro-Ramesh is negative Patient met 3 out of 4 SIRS criteria Blood Cultures Negative after 48 hours Chest x-ray is negative for PNA. UA is negative for UTI. Monospot, rapid strep, RSV negative. In ED patient received IVF, ABX. CT A/P showed large amount of stool, possible proctitis. Blood cultures negative x 48 hours. Culture positive for Staph aureus, but minimal colony-forming units, likely colonization. Suspect buttock ulcer as source of infection. MRSA screen positive, patient started on mupirocin. -Rocephin 1 g IV daily, ending today #History of hypertension Home medication is Lisinopril 10 mg qday. Patient has have elevated systolic blood pressure of 160/95. Increased Lisinopril. -Home dose of Lisinopril 10 mg increased to 20 mg daily #Coccidioides meningitis -Continue fluconazole 800 daily (IV) #Electrolyte imblance Continue to replace electrolytes as necessary. Plan: -Continue to monitor, replace as needed #CVA w/ hemiplegia and hemiparesis #Hyperlipidemia Plan -Resume home medication Aspirin and Plavix -Consider resuming Atorvastatin 80 mg HS #Fibromyalgia #Migraines -Continue home medications: meclizine, duloxetine DVT prophylaxis: Heparin GI prophylaxis: Protonix Diet: Cardiac Lines: Peripheral IV Code status: Full code Plan of care discussed with senior resident Dr. Watkins PGY?[address] Izaguirre. Devyn Andrews MD PGY?1 Attending Provider Attestation/Addendum I have examined the patient, reviewed labs and imaging findings, discussed the case with the resident(s), and reviewed entered orders. I agree with the plan of care as outlined in this note, with these additional summaries/recommendations: Patient seen at bedside. No acute overnight events. Patient was seen by neurology and given that patient's aphasia worsened after weaning from steroids and now with new MRI changes we will start patient on high-dose IV Solu-Medrol 1 g for 5 days. Continue Protonix as patient is high risk for GI bleed on Plavix, aspirin, and steroids. Continue aspirin and Plavix for history of CVA. Continue high-dose fluconazole for history of cocci meningitis. Infected decubitus ulcer on admission is significantly improved and we will continue IV antibiotics for now. Wound cultures grew Staph aureus.. Continue pressure redistribution techniques to prevent worsening pressure ulcer. Patient and family updated on the plan and in agreement. Repeat hematology and chemistry panel in AM. Dr. Izaguirre
--- NOTE | 2024-05-11 18:08 | PC.NURSE ---
Bladder scan shows 400 cc urine retentiion. Performed In and OUt straight get 400 cc out
--- NOTE | 2024-05-11 23:02 | VVPN_ITS ---
Telemedicine visit statement This visit was conducted with the use of phone was obtained on 05/11/24 at 2302. Documentation for date of: 05/11/24 Subjective Subjective Interval history: Patient is in medsurg with family. aphasia and right dense hemiplegia unchanged. Getting in and out catheterization for bladder retention every 6 hours. Virtual exam Vital Signs Temp Pulse Resp BP Pulse Ox O2 Del Method 97.3 F 92 24 H 134/78 H 97 Room Air 05/11/24 20:00 05/11/24 20:00 05/11/24 20:00 05/11/24 20:00 05/11/24 20:00 05/11/24 20:00 Objective Labs 05/11/24 05:05 05/11/24 05:05 Labs: Laboratory Results - last 24 hr 05/10/24 05/11/24 13:45 05:05 WBC 7.9 RBC 3.97 L Hgb 12.8 Hct 37.3 MCV 94 MCH 32.2 MCHC 34.3 RDW Std Deviation 47.6 H Plt Count 342 D Neut % (Auto) 43 Lymph % (Auto) 27 [place] % (Auto) 7 Eos % (Auto) 22 H Baso % (Auto) 1 Neut # (Auto) 3.4 Lymph # (Auto) 2.1 [place] # (Auto) 0.5 Eos # (Auto) 1.8 H Baso # (Auto) 0.1 Immature Gran # (Auto) 0.09 H Absolute Nucleated RBC 0.00 Immature Gran % 1 H Nucleated RBC % 0 Sodium 140 Potassium 3.1 L Chloride 104 Carbon Dioxide 27.8 Anion Gap 8 BUN 10 Creatinine 0.3 L Estim Creat Clear Calc 159.7 eGFR > 60 BUN/Creatinine Ratio 33 H Glucose 106 Calculated Osmolality 278 Calcium 9.6 Corrected Calcium 9.8 Phosphorus 2.8 Magnesium 1.8 Total Bilirubin 0.3 AST 18 ALT 24 Alkaline Phosphatase 90 Total Protein 6.0 Albumin 3.7 Globulin 2.3 Albumin/Globulin Ratio 1.6 Misc Test Result Cancelled Assessment & Plan Assessment (1) Aphasia: with faciobrachial dystonia : likely from AE worsened after stopping weaning from steroids MRI brain showed nothing acute but noted prominent chronic white matter changes and ventriculomegaly Repeat CSF analysis showed low glucose and high protein and lymphocytosis: seen in AE, TB, Cocci and viral encephalitis and Sarcoidosis. Will make sure that the CSF for AE panel will be sent this time to [facility] lab Continue her on high dose steroids: IV solumedrol 1 gram for 5 days with PPI prophylaxis (2) Recent cerebrovascular accident: With persistent dense right-sided weakness and aphasia Continue with aspirin (3) Essential (primary) hypertension: Continue with the blood pressure control (4) Chronic migraine: By history, stable now. 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
[2024-05-12] VITALS (8 sets, daily range): BP systolic 126–159; BP diastolic 72–93; PULSE 62–107; RESP 18–19; TEMP 36.2–36.6; O2SAT 95–99; BMI 19.5
[2024-05-12 05:47] LABS: Basophils % (Auto) 0 % (0-2.5); Eosinophils % (Auto) 0 % (0-10); Hematocrit 36.4 % (36.0-46.0); Hemoglobin 12.8 g/dL (12.0-16.0); Immature Granulocytes % (Auto) 1 % (0-0); Immature Granulocytes Auto 0.06 Thou/mm3 (0.00-0.00); Lymphocytes # (Auto) 1.3 Thou/mm3 (1.0-4.8); Lymphocytes % (Auto) 20 % (10-50); Mean Corpuscular HGB Conc 35.2 g/dl (31.0-37.0); Mean Corpuscular Hemoglobin 32.7 pg (25.0-35.0); Mean Corpuscular Volume 93 fL (80-100); Monocytes # (Auto) 0.1 Thou/mm3 (0.0-0.8); Monocytes % (Auto) 2 % (0-12); Neutrophils # (Auto) 4.8 Thou/mm3 (1.8-7.7); Neutrophils % (Auto) 77 % (37-80); Nucleated Red Blood Cell % 0 /100 WBC (0); Platelet Count 367 Thou/mm3 (140-440); RDW Standard Deviation 46.6 fL (36.4-46.3); Red Blood Count 3.91 Miln/mm3 (4.00-5.20); White Blood Count 6.2 Thou/mm3 (3.6-11.0)
[2024-05-12 06:39] LABS: Alanine Aminotransferase 27 U/L (10-49); Albumin, Serum 3.8 gm/dL (3.5-5.0); Albumin/Globulin Ratio 1.6 (1.2-2.2); Alkaline Phosphatase 84 U/L (46-116); Anion Gap 10 (7-16); Aspartate Amino Transferase 28 U/L (0-34); BUN/Creatinine Ratio 38 Ratio (12-20); Bilirubin,Total 0.4 mg/dL (0.3-1.2); Blood Urea Nitrogen 15 mg/dL (9-23); Calcium 10.2 mg/dL (8.3-10.6); Calcium (Corrected) 10.4 mg/dL (8.5-10.1); Carbon Dioxide 25.4 mMol/L (20.0-31.0); Chloride 104 mMol/L (98-107); Creatinine (Component) 0.4 mg/dL (0.6-1.3); Estimated Creatinine Clearance 119.8 mL/min (>60); Globulin 2.4 gm/dL (2.3-3.5); Glucose 128 mg/dL (74-106); Magnesium 1.8 mg/dL (1.6-2.6); Osmolality,Calculated 280 (275-295); Phosphorous 2.7 mg/dL (2.4-5.1); Potassium 3.8 mMol/L (3.4-5.1); Sodium 139 mMol/L (136-145); Total Protein 6.2 gm/dL (5.7-8.2); eGFR > 60 See Note
[2024-05-12] MEDS: MethylPREDNISolone. 1,000 MG in SODIUM CHLORIDE 0.9% 250 ML 250 ML 266 MG IV (08:37)
[2024-05-12] MEDS: DULoxetine HCL 30 MG CAPSULE 60 MG PO (08:38)
[2024-05-12] MEDS: ASPIRIN EC 81 MG TABEC PO (08:38)
[2024-05-12] MEDS: FLUCONAZOLE/NS 400 MG IVPB 400 MG/200 ML BAG 50 MG IV ×2 (08:38→20:49)
[2024-05-12] MEDS: CLOPIDOGREL BISULFATE 75 MG TABLET PO (08:38)
[2024-05-12] MEDS: cefTRIAXone/D5w 1gm IV premix 50 ML IV (08:38)
[2024-05-12] MEDS: PANTOPRAZOLE INJ 40 MG VIAL IV (08:39)
[2024-05-12] MEDS: HEPARIN SOD INJ 5000 UNIT/ML VIAL SC ×2 (08:39→20:55)
[2024-05-12] MEDS: Lisinopril 20 MG TABLET PO (08:39)
[2024-05-12] MEDS: BALSAM PERU/CASTOR OIL (Venelex) 60 GM TUBE TOP ×2 (08:41→20:54)
--- NOTE | 2024-05-12 10:55 | PD.RESPRO ---
Documentation for date of: 05/12/24 Subjective Subjective Interval history: Patient seen and examined at bedside. No overnight events. Patient has significantly improved. Able to verbally communicate with the team. Family at bedside a very pleasant of the patient's recovery. All questions and concerns were addressed at bedside Exam Vital Signs Temp Pulse Resp BP Pulse Ox O2 Del Method 97.2 F 85 18 133/81 H 95 Room Air 05/12/24 08:00 05/12/24 08:39 05/12/24 08:00 05/12/24 08:39 05/12/24 08:00 05/12/24 08:00 Narrative Exam General Appearance: Alert & Oriented X0, well-nourished female who is verbal today, who is lying in bed in no acute distress HEENT: Skull symmetrical and atraumatic. Conjunctivae pink and moist. Pupils equal, round, reactive to light and accommodation (PERRL). Mucosa pink, no discharge. Cardio: Normal Rate and Rhythm with S1 and S2 heart sounds. No murmurs or extra heart sounds auscultated. No bruits on carotid auscultation. No peripheral edema or cyanosis. Lungs: Symmetric with good expansion. Chest and back non-tender. Breath sounds vesicular without crackles, wheezing or rhonchi Abdomen: Non-tender, Non-distended, Normal Reactive Bowel Sounds Neuro: Patient alert and cooperative. None verbal. Upper motor strength 3/5 and Lower motor strength 1/5. Hemiplegia and hemiparesis. Objective Labs 05/12/24 05:23 05/12/24 05:23 Labs: Laboratory Results - last 24 hr 05/12/24 05:23 WBC 6.2 RBC 3.91 L Hgb 12.8 Hct 36.4 MCV 93 MCH 32.7 MCHC 35.2 RDW Std Deviation 46.6 H Plt Count 367 Neut % (Auto) 77 Lymph % (Auto) 20 [place] % (Auto) 2 Eos % (Auto) 0 Baso % (Auto) 0 Neut # (Auto) 4.8 Lymph # (Auto) 1.3 [place] # (Auto) 0.1 Eos # (Auto) 0.0 Baso # (Auto) 0.0 Immature Gran # (Auto) 0.06 H Absolute Nucleated RBC 0.00 Immature Gran % 1 H Nucleated RBC % 0 Sodium 139 Potassium 3.8 D Chloride 104 Carbon Dioxide 25.4 Anion Gap 10 BUN 15 Creatinine 0.4 L Estim Creat Clear Calc 119.8 eGFR > 60 BUN/Creatinine Ratio 38 H Glucose 128 H Calculated Osmolality 280 Calcium 10.2 Corrected Calcium 10.4 H Phosphorus 2.7 Magnesium 1.8 Total Bilirubin 0.4 AST 28 ALT 27 Alkaline Phosphatase 84 Total Protein 6.2 Albumin 3.8 Globulin 2.4 Albumin/Globulin Ratio 1.6 Quality Measures Quality Measures VTE prophylaxis Assessment & Plan Assessment Current Active Medications: Generic Name Dose Route Start Last Admin Trade Name Freq PRN Reason Stop Dose Admin Acetaminophen 650 mg 05/04/24 22:54 05/06/24 00:27 Acetaminophen 325 Mg Tablet PO 06/03/24 22:53 650 mg Q6H PRN Administration PAIN OR FEVER > 101 Amoxicillin/Clavulanate Potassium 1 tab 05/08/24 21:00 05/09/24 09:59 Amoxicillin/Pot Clav 875 Tablet PO 05/15/24 20:59 Not Given BID ROGER Aspirin 81 mg 05/05/24 09:00 05/12/24 08:38 Aspirin Ec 81 Mg Tabec PO 06/04/24 08:59 81 mg DAILY ROGER Administration Balsam [place] Oil 0 gm 05/06/24 21:00 05/12/24 08:41 Balsam [place] Oil (Venelex) 60 Gm Tube TOP 06/05/24 20:59 1 applicatio BID ROGER Administration Clopidogrel Bisulfate 75 mg 05/05/24 09:00 05/12/24 08:38 Clopidogrel Bisulfate 75 Mg Tablet PO 06/04/24 08:59 75 mg QDAY ROGER Administration Dextrose 25 ml 05/06/24 10:09 Dextrose 50%-Water Inj 50 Ml Syringe IV 06/05/24 10:08 Q15MIN PRN BG 50-70 responsive npo pt Dextrose 50 ml 05/06/24 10:09 Dextrose 50%-Water Inj 50 Ml Syringe IV 06/05/24 10:08 Q15MIN PRN BG <50 OR BG <70 & pt unresponsive Duloxetine HCl 60 mg 05/11/24 09:00 05/12/24 08:38 Duloxetine Hcl 30 Mg Capsule PO 06/10/24 08:59 60 mg QDAY ROGER Administration Glucagon 1 mg 05/06/24 10:09 Glucagon Inj 1 Mg Vial IM Q15MIN PRN BG <70, and no IV access Heparin Sodium (Porcine) 5,000 unit 05/04/24 23:00 05/12/24 08:39 Heparin Sod Inj 5000 Unit/Ml Vial SC 05/18/24 22:59 5,000 unit Q12HR ROGER Administration Ceftriaxone Sodium/Dextrose 50 mls @ 100 mls/hr 05/09/24 18:30 05/12/24 08:38 Rocephin/D5w 1gm Iv Premix IV 05/16/24 23:55 100 mls/hr QDAY ROGER Administration Methylprednisolone Sodium 266 mls @ 266 mls/hr 05/11/24 09:00 05/12/24 08:37 Succinate 1,000 mg/ Sodium IV 05/16/24 08:59 266 mls/hr Chloride QDAY ROGER Administration Fluconazole 400 mg in 200 mls @ 50 mls/hr 05/11/24 10:45 05/12/24 08:38 Diflucan/Ns Ivpb IV 05/18/24 10:44 50 mls/hr BID ROGER Administration Lisinopril 20 mg 05/07/24 09:00 05/12/24 08:39 Lisinopril 20 Mg Tablet PO 06/06/24 08:59 20 mg QDAY ROGER Administration Magnesium Hydroxide 30 ml 05/05/24 08:07 Milk Of Magnesia Susp 30 Ml Udc PO 06/04/24 08:06 QDAY PRN CONSTIPATION Protocol Meclizine HCl 25 mg 05/04/24 23:08 Meclizine Hcl 25 Mg Tablet PO 06/03/24 23:07 Q12H PRN Dizziness Pantoprazole Sodium 40 mg 05/11/24 09:00 05/12/24 08:39 Pantoprazole Inj 40 Mg Vial IV 06/10/24 08:59 40 mg QDAY ROGER Administration Sennosides 8.8 mg 05/05/24 08:07 Sennosides Syrup 8.8 Mg/5 Ml Udc PO 06/04/24 08:06 QDAY PRN CONSTIPATION Protocol Plan 54-year-old female with 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 #Acute encephalopathy #?Autoimmune encephalitis Patient appears less responsive on exam than previous day. Difficult to ascertain as patient baseline mental status has severely deteriorated. CT head negative. Neuroconsulted. Cefepime discontinued. MRI head/brain limited by patient movement, did not show any acute pathology. Chronic white matter changes. On February, autoimmune encephalitis panel VGKC and LGI1 antibody was sent, all negative. CSF showed low glucose and high protein. Neuro recommended high-dose steroids. -Neurology consulted, appreciate recommendations -EEG taken, results pending -Solu-Medrol 1 g IV daily (05/11-05/16) #Pressure Ulcer #Sepsis likely secondary to pressure ulcer, improved Patient presented from SNF due to fever of 102.1, tachycardic with heart rate of 126, labs revealed leukocytosis of 11.5. Lactic acid and Pro-Ramesh is negative Patient met 3 out of 4 SIRS criteria Blood Cultures Negative after 48 hours Chest x-ray is negative for PNA. UA is negative for UTI. Monospot, rapid strep, RSV negative. In ED patient received IVF, ABX. CT A/P showed large amount of stool, possible proctitis. Blood cultures negative x 48 hours. Culture positive for Staph aureus, but minimal colony-forming units, likely colonization. Suspect buttock ulcer as source of infection. MRSA screen positive, patient started on mupirocin. -Rocephin 1 g IV daily, ending today #History of hypertension Home medication is Lisinopril 10 mg qday. Patient has have elevated systolic blood pressure of 160/95. Increased Lisinopril. -Home dose of Lisinopril 10 mg increased to 20 mg daily #Coccidioides meningitis -Continue fluconazole 800 daily (IV) #Electrolyte imblance Continue to replace electrolytes as necessary. Plan: -Continue to monitor, replace as needed #CVA w/ hemiplegia and hemiparesis #Hyperlipidemia Plan -Resume home medication Aspirin and Plavix -Consider resuming Atorvastatin 80 mg HS #Fibromyalgia #Migraines -Continue home medications: meclizine, duloxetine DVT prophylaxis: Heparin GI prophylaxis: Protonix Diet: Cardiac Lines: Peripheral IV Code status: Full code - Patient's care was discussed with my attending physician, Dr. Dmitriy Lawrence MD Internal Medicine PGY-3 Attending Provider Attestation/Addendum I have examined the patient, reviewed labs and imaging findings, discussed the case with the resident(s), and reviewed entered orders. I agree with the plan of care as outlined in this note, with these additional summaries/recommendations: Patient seen at bedside. No acute overnight events. Today patients aphasia has significantly improved with high dose steroids and speech currently comprehensible. Facial movements more intact although still unable to move bilateral lower extremities. Given MRI findings we will continue on high-dose IV Solu-Medrol 1 g for 5 days. Continue Protonix as patient is high risk for GI bleed on Plavix, aspirin, and steroids. Continue aspirin and Plavix for history of CVA. Continue high-dose fluconazole for history of cocci meningitis. Infected decubitus ulcer on admission is significantly improved and we will continue IV antibiotics for now. Wound cultures grew Staph aureus.. Continue pressure redistribution techniques to prevent worsening pressure ulcer. Patient and family updated on the plan and in agreement. Repeat hematology and chemistry panel in AM. Dr. Izaguirre
--- NOTE | 2024-05-12 16:09 | PD.VPROG1 ---
Telemedicine visit statement This visit was conducted with the use of interactive audio and video telecommunications system that permits real time communication between the patient and the provider. Patient's verbal consent for virtual visit was obtained on 05/12/24 at 1609. Documentation for date of: 05/12/24 Subjective Subjective Interval history: Patient is in medsurg with family. aphasia and right dense hemiplegia unchanged. Not needing in and out catheterization as she is voiding. Virtual exam Vital Signs Temp Pulse Resp BP Pulse Ox O2 Del Method 97.2 F 72 18 138/72 H 95 Room Air 05/12/24 15:56 05/12/24 15:56 05/12/24 15:56 05/12/24 15:56 05/12/24 15:56 05/12/24 15:56 Objective Labs 05/13/24 05:39 05/13/24 05:39 Labs: Laboratory Results - last 24 hr 05/12/24 05:23 WBC 6.2 RBC 3.91 L Hgb 12.8 Hct 36.4 MCV 93 MCH 32.7 MCHC 35.2 RDW Std Deviation 46.6 H Plt Count 367 Neut % (Auto) 77 Lymph % (Auto) 20 [place] % (Auto) 2 Eos % (Auto) 0 Baso % (Auto) 0 Neut # (Auto) 4.8 Lymph # (Auto) 1.3 [place] # (Auto) 0.1 Eos # (Auto) 0.0 Baso # (Auto) 0.0 Immature Gran # (Auto) 0.06 H Absolute Nucleated RBC 0.00 Immature Gran % 1 H Nucleated RBC % 0 Sodium 139 Potassium 3.8 D Chloride 104 Carbon Dioxide 25.4 Anion Gap 10 BUN 15 Creatinine 0.4 L Estim Creat Clear Calc 119.8 eGFR > 60 BUN/Creatinine Ratio 38 H Glucose 128 H Calculated Osmolality 280 Calcium 10.2 Corrected Calcium 10.4 H Phosphorus 2.7 Magnesium 1.8 Total Bilirubin 0.4 AST 28 ALT 27 Alkaline Phosphatase 84 Total Protein 6.2 Albumin 3.8 Globulin 2.4 Albumin/Globulin Ratio 1.6 Assessment & Plan Assessment (1) Aphasia: with faciobrachial dystonia : likely from AE worsened after stopping weaning from steroids MRI brain showed nothing acute but noted prominent chronic white matter changes and ventriculomegaly Repeat CSF analysis showed low glucose and high protein and lymphocytosis: seen in AE, TB, Cocci and viral encephalitis and Sarcoidosis. Will make sure that the CSF for AE panel will be sent this time to [facility] lab Continue her on high dose steroids: IV solumedrol 1 gram for 5 days with PPI prophylaxis (2) Recent cerebrovascular accident: With persistent dense right-sided weakness and aphasia Continue with aspirin (3) Essential (primary) hypertension: Continue with the blood pressure control (4) Chronic migraine: By history, stable now. 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
--- NOTE | 2024-05-12 18:30 | PC.NURSE ---
Bladder scan performed at 17:45. 327ml recorded. Went in at 18:25 to do in and out catheter on pt. Saw that pt had a wet brief. Rescanned pt's bladder. 120ml recorded. No in and out catheter performed.
[2024-05-13] VITALS (8 sets, daily range): BP systolic 124–148; BP diastolic 69–89; PULSE 79–96; RESP 18–20; TEMP 36.3–36.7; O2SAT 96
[2024-05-13 06:19] LABS: Basophils % (Auto) 0 % (0-2.5); Eosinophils % (Auto) 0 % (0-10); Hematocrit 36.8 % (36.0-46.0); Hemoglobin 12.6 g/dL (12.0-16.0); Immature Granulocytes % (Auto) 1 % (0-0); Immature Granulocytes Auto 0.07 Thou/mm3 (0.00-0.00); Lymphocytes # (Auto) 1.2 Thou/mm3 (1.0-4.8); Lymphocytes % (Auto) 11 % (10-50); Mean Corpuscular HGB Conc 34.2 g/dl (31.0-37.0); Mean Corpuscular Hemoglobin 32.4 pg (25.0-35.0); Mean Corpuscular Volume 95 fL (80-100); Monocytes # (Auto) 0.4 Thou/mm3 (0.0-0.8); Monocytes % (Auto) 3 % (0-12); Neutrophils # (Auto) 8.9 Thou/mm3 (1.8-7.7); Neutrophils % (Auto) 85 % (37-80); Nucleated Red Blood Cell % 0 /100 WBC (0); Platelet Count 412 Thou/mm3 (140-440); RDW Standard Deviation 48.2 fL (36.4-46.3); Red Blood Count 3.89 Miln/mm3 (4.00-5.20); White Blood Count 10.5 Thou/mm3 (3.6-11.0)
[2024-05-13 06:44] LABS: Alanine Aminotransferase 29 U/L (10-49); Albumin, Serum 3.9 gm/dL (3.5-5.0); Albumin/Globulin Ratio 1.7 (1.2-2.2); Alkaline Phosphatase 82 U/L (46-116); Anion Gap 9 (7-16); Aspartate Amino Transferase 20 U/L (0-34); BUN/Creatinine Ratio 50 Ratio (12-20); Bilirubin,Total 0.4 mg/dL (0.3-1.2); Blood Urea Nitrogen 15 mg/dL (9-23); Calcium (Corrected) 10.1 mg/dL (8.5-10.1); Carbon Dioxide 28.1 mMol/L (20.0-31.0); Chloride 106 mMol/L (98-107); Creatinine (Component) 0.3 mg/dL (0.6-1.3); Estimated Creatinine Clearance 159.7 mL/min (>60); Globulin 2.3 gm/dL (2.3-3.5); Glucose 131 mg/dL (74-106); Magnesium 1.9 mg/dL (1.6-2.6); Osmolality,Calculated 287 (275-295); Phosphorous 2.6 mg/dL (2.4-5.1); Potassium 2.9 mMol/L (3.4-5.1); Sodium 143 mMol/L (136-145); Total Protein 6.2 gm/dL (5.7-8.2); eGFR > 60 See Note
[2024-05-13] MEDS: MethylPREDNISolone. 1,000 MG in SODIUM CHLORIDE 0.9% 250 ML 250 ML 266 MG IV (08:47)
[2024-05-13] MEDS: cefTRIAXone/D5w 1gm IV premix 50 ML IV (08:47)
[2024-05-13] MEDS: BALSAM PERU/CASTOR OIL (Venelex) 60 GM TUBE TOP ×2 (08:53→20:59)
[2024-05-13] MEDS: POTASSIUM CHLORIDE 20 mEq TABCR 40 MEQ PO (09:00)
[2024-05-13] MEDS: HEPARIN SOD INJ 5000 UNIT/ML VIAL SC ×2 (09:32→20:59)
[2024-05-13] MEDS: POTASSIUM CHL 10 mEq IVPB 10 MEQ/100 ML BAG 100 MEQ IV ×4 (09:32→12:51)
[2024-05-13] MEDS: FLUCONAZOLE/NS 400 MG IVPB 400 MG/200 ML BAG 50 MG IV ×2 (09:32→20:55)
[2024-05-13] MEDS: Lisinopril 20 MG TABLET PO (09:33)
[2024-05-13] MEDS: CLOPIDOGREL BISULFATE 75 MG TABLET PO (09:33)
[2024-05-13] MEDS: ASPIRIN EC 81 MG TABEC PO (09:33)
[2024-05-13] MEDS: PANTOPRAZOLE INJ 40 MG VIAL IV (09:33)
[2024-05-13] MEDS: DULoxetine HCL 30 MG CAPSULE 60 MG PO (09:34)
--- NOTE | 2024-05-13 10:30 | CHAP ---
Patient was visited by the Spiritual Care Volunteer from whom they received communion prayed for them. (Volunteer was in the hospital from c 09:45-c10:30).
--- NOTE | 2024-05-13 13:05 | ESPR_ITS ---
Documentation for date of: 05/13/24 Subjective Subjective Interval history: No overnight events. Patient seen and examined at bedside. Patient resting comfortably, able to verbalize simple answers to simple questions. Still some dysarthria. Overall patient is significantly improved. Continue high-dose steroids. Exam Vital Signs Temp Pulse Resp BP Pulse Ox O2 Del Method 97.3 F 84 19 127/89 H 96 Room Air 05/13/24 12:00 05/13/24 12:00 05/13/24 12:00 05/13/24 12:00 05/13/24 12:00 05/13/24 12:00 Narrative Exam General Appearance: Alert & Oriented X0, well-nourished female who is verbal today, who is lying in bed in no acute distress HEENT: Skull symmetrical and atraumatic. Conjunctivae pink and moist. Pupils equal, round, reactive to light and accommodation (PERRL). Mucosa pink, no discharge. Cardio: Normal Rate and Rhythm with S1 and S2 heart sounds. No murmurs or extra heart sounds auscultated. No bruits on carotid auscultation. No peripheral edema or cyanosis. Lungs: Symmetric with good expansion. Chest and back non-tender. Breath sounds vesicular without crackles, wheezing or rhonchi. Abdomen: Non-tender, Non-distended, Normal Reactive Bowel Sounds Neuro: Patient alert and cooperative. Notable dysarthria. Upper motor strength 3/5 and Lower motor strength 1/5. Hemiplegia and hemiparesis. Objective Labs 05/13/24 05:39 05/13/24 05:39 Labs: Laboratory Results - last 24 hr 05/13/24 05:39 WBC 10.5 D RBC 3.89 L Hgb 12.6 Hct 36.8 MCV 95 MCH 32.4 MCHC 34.2 RDW Std Deviation 48.2 H Plt Count 412 D Neut % (Auto) 85 H Lymph % (Auto) 11 [place] % (Auto) 3 Eos % (Auto) 0 Baso % (Auto) 0 Neut # (Auto) 8.9 H Lymph # (Auto) 1.2 [place] # (Auto) 0.4 Eos # (Auto) 0.0 Baso # (Auto) 0.0 Immature Gran # (Auto) 0.07 H Absolute Nucleated RBC 0.00 Immature Gran % 1 H Nucleated RBC % 0 Sodium 143 Potassium 2.9 L D Chloride 106 Carbon Dioxide 28.1 Anion Gap 9 BUN 15 Creatinine 0.3 L Estim Creat Clear Calc 159.7 eGFR > 60 BUN/Creatinine Ratio 50 H Glucose 131 H Calculated Osmolality 287 Calcium 10.0 Corrected Calcium 10.1 Phosphorus 2.6 Magnesium 1.9 Total Bilirubin 0.4 AST 20 ALT 29 Alkaline Phosphatase 82 Total Protein 6.2 Albumin 3.9 Globulin 2.3 Albumin/Globulin Ratio 1.7 Quality Measures Quality Measures VTE prophylaxis Assessment & Plan Assessment Current Active Medications: Generic Name Dose Route Start Last Admin Trade Name Freq PRN Reason Stop Dose Admin Acetaminophen 650 mg 05/04/24 22:54 05/06/24 00:27 Acetaminophen 325 Mg Tablet PO 06/03/24 22:53 650 mg Q6H PRN Administration PAIN OR FEVER > 101 Aspirin 81 mg 05/05/24 09:00 05/13/24 09:33 Aspirin Ec 81 Mg Tabec PO 06/04/24 08:59 81 mg DAILY ROGER Administration Balsam [place] Oil 0 gm 05/06/24 21:00 05/13/24 08:53 Balsam [place] Oil (Venelex) 60 Gm Tube TOP 06/05/24 20:59 1 applicatio BID ROGER Administration Clopidogrel Bisulfate 75 mg 05/05/24 09:00 05/13/24 09:33 Clopidogrel Bisulfate 75 Mg Tablet PO 06/04/24 08:59 75 mg QDAY ROGER Administration Dextrose 25 ml 05/06/24 10:09 Dextrose 50%-Water Inj 50 Ml Syringe IV 06/05/24 10:08 Q15MIN PRN BG 50-70 responsive npo pt Dextrose 50 ml 05/06/24 10:09 Dextrose 50%-Water Inj 50 Ml Syringe IV 06/05/24 10:08 Q15MIN PRN BG <50 OR BG <70 & pt unresponsive Duloxetine HCl 60 mg 05/11/24 09:00 05/13/24 09:34 Duloxetine Hcl 30 Mg Capsule PO 06/10/24 08:59 60 mg QDAY ROGER Administration Glucagon 1 mg 05/06/24 10:09 Glucagon Inj 1 Mg Vial IM Q15MIN PRN BG <70, and no IV access Heparin Sodium (Porcine) 5,000 unit 05/04/24 23:00 05/13/24 09:32 Heparin Sod Inj 5000 Unit/Ml Vial SC 05/18/24 22:59 5,000 unit Q12HR ROGER Administration Ceftriaxone Sodium/Dextrose 50 mls @ 100 mls/hr 05/09/24 18:30 05/13/24 08:47 Rocephin/D5w 1gm Iv Premix IV 05/16/24 23:55 100 mls/hr QDAY ROGER Administration Methylprednisolone Sodium 266 mls @ 266 mls/hr 05/11/24 09:00 05/13/24 08:47 Succinate 1,000 mg/ Sodium IV 05/16/24 08:59 266 mls/hr Chloride QDAY ROGER Administration Fluconazole 400 mg in 200 mls @ 50 mls/hr 05/11/24 10:45 05/13/24 09:32 Diflucan/Ns Ivpb IV 05/18/24 10:44 50 mls/hr BID ROGER Administration Lisinopril 20 mg 05/07/24 09:00 05/13/24 09:33 Lisinopril 20 Mg Tablet PO 06/06/24 08:59 20 mg QDAY ROGER Administration Magnesium Hydroxide 30 ml 05/05/24 08:07 Milk Of Magnesia Susp 30 Ml Udc PO 06/04/24 08:06 QDAY PRN CONSTIPATION Protocol Meclizine HCl 25 mg 05/04/24 23:08 Meclizine Hcl 25 Mg Tablet PO 06/03/24 23:07 Q12H PRN Dizziness Pantoprazole Sodium 40 mg 05/11/24 09:00 05/13/24 09:33 Pantoprazole Inj 40 Mg Vial IV 06/10/24 08:59 40 mg QDAY ROGER Administration Sennosides 8.8 mg 05/05/24 08:07 Sennosides Syrup 8.8 Mg/5 Ml Udc PO 06/04/24 08:06 QDAY PRN CONSTIPATION Protocol Plan 54-year-old female with 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 #Acute encephalopathy, improved #?Autoimmune encephalitis Patient appears less responsive on exam than previous day. Difficult to ascertain as patient baseline mental status has severely deteriorated. CT head negative. Neuroconsulted. Cefepime discontinued. MRI head/brain limited by patient movement, did not show any acute pathology. Chronic white matter changes. On February, autoimmune encephalitis panel VGKC and LGI1 antibody was sent, all negative. CSF showed low glucose and high protein. Neuro recommended high-dose steroids. Patient showed significant improvement in mental status with high-dose steroids -Neurology consulted, appreciate recommendations -EEG taken, results pending -Solu-Medrol 1 g IV daily (05/11-05/16) #Pressure Ulcer, treated #Sepsis likely secondary to pressure ulcer, resolved Patient presented from SNF due to fever of 102.1, tachycardic with heart rate of 126, labs revealed leukocytosis of 11.5. Lactic acid and Pro-Ramesh is negative Patient met 3 out of 4 SIRS criteria Blood Cultures Negative after 48 hours Chest x-ray is negative for PNA. UA is negative for UTI. Monospot, rapid strep, RSV negative. In ED patient received IVF, ABX. CT A/P showed large amount of stool, possible proctitis. Blood cultures negative x 48 hours. Culture positive for Staph aureus, but minimal colony-forming units, likely colonization. Suspect buttock ulcer as source of infection. MRSA screen positive, patient started on mupirocin. Completed full treatment of Rocephin #History of hypertension Home medication is Lisinopril 10 mg qday. Patient has have elevated systolic blood pressure of 160/95. Increased Lisinopril. -Home dose of Lisinopril 10 mg increased to 20 mg daily #Coccidioides meningitis -Continue fluconazole 800 daily (IV) #Electrolyte imblance Continue to replace electrolytes as necessary. Plan: -Continue to monitor, replace as needed #CVA w/ hemiplegia and hemiparesis #Hyperlipidemia Plan -Resume home medication Aspirin and Plavix -Resume home atorvastatin 80 mg HS #Fibromyalgia #Migraines -Continue home medications: meclizine, duloxetine DVT prophylaxis: Heparin GI prophylaxis: Protonix Diet: Cardiac Lines: Peripheral IV Code status: Full code Plan of care was discussed with attending physician Dr. Dmitriy Andrews MD PGY?1 Attending Provider Attestation/Addendum I have examined the patient, reviewed labs and imaging findings, discussed the case with the resident(s), and reviewed entered orders. I agree with the plan of care as outlined in this note, with these additional summaries/recommendations: Patient seen at bedside. No acute overnight events. Patients aphasia continues to improve with high dose steroids although difficult to discern patients speech at times. Facial movements more intact. Given MRI findings we will continue on high-dose IV Solu-Medrol 1 g for 5 days. Continue Protonix as patient is high risk for GI bleed on Plavix, aspirin, and steroids. Continue aspirin and Plavix for history of CVA. Continue high-dose fluconazole for history of cocci meningitis. Infected decubitus ulcer on admission is significantly improved and we will continue IV antibiotics for now. Wound cultures grew Staph aureus. Continue pressure redistribution techniques to prevent worsening pressure ulcer. Patient and family updated on the plan and in agreement. Repeat hematology and chemistry panel in AM. Dr. Izaguirre
--- NOTE | 2024-05-13 14:59 | PC.SS ---
Rounding: on Solimedrol until 05/16
--- NOTE | 2024-05-13 23:10 | PD.NEUROPROG ---
Documentation for date of: 05/13/24 Subjective Subjective Interval history: Patient was seen in [facility] today with her family at the bedside. Continues to have dense right hemiplegia and abnormal involuntary movements involving the face and left UE, speech is slowly improving. Exam - Neurology Vital Signs Temp Pulse Resp BP Pulse Ox O2 Del Method 97.6 F 96 18 148/86 H 96 Room Air 05/13/24 20:00 05/13/24 20:00 05/13/24 20:00 05/13/24 20:00 05/13/24 20:00 05/13/24 20:00 Narrative Exam GENERAL APPEARANCE: Well developed, well-nourished in no acute distress. HEENT: Normocephalic, atraumatic, extraocular movements intact. Pupils: Equal reacting to light NECK: Supple, no JVD or bruits. CARDIOVASULAR: Heart: S1, S2 heard, regular without S3-S4 or murmur no rubs or gallops. LUNGS/CHEST: Clear to auscultation bilaterally. No rails, rhonchi, or wheezing. Normal inspection. ABDOMEN: Soft, nontender, with normal bowel sounds. No pulsatile masses. No rebound, rigidity, or guarding. Normal inspection and palpation. EXTREMITIES: Normal inspection and palpation. No edema, clubbing or cyanosis. SKIN: Warm and dry without rashes. Normal inspection. MUSCULOSKELETAL: No cervical, thoracic, lumbar or midline bony tenderness. Normal inspection. NEURO: Alert, awake and aphasic, but starting to verbalize, Dense right hemiplegia noted. Purposeful movements noted in the left upper and lower extremities noted.. no signs of meningeal irritation noted. Dystonia noted in the face and the left UE today. PSYCHIATRIC: normal mood and affect. Objective Labs 05/13/24 05:39 05/13/24 05:39 Labs: Laboratory Results - last 24 hr 05/13/24 05:39 WBC 10.5 D RBC 3.89 L Hgb 12.6 Hct 36.8 MCV 95 MCH 32.4 MCHC 34.2 RDW Std Deviation 48.2 H Plt Count 412 D Neut % (Auto) 85 H Lymph % (Auto) 11 [place] % (Auto) 3 Eos % (Auto) 0 Baso % (Auto) 0 Neut # (Auto) 8.9 H Lymph # (Auto) 1.2 [place] # (Auto) 0.4 Eos # (Auto) 0.0 Baso # (Auto) 0.0 Immature Gran # (Auto) 0.07 H Absolute Nucleated RBC 0.00 Immature Gran % 1 H Nucleated RBC % 0 Sodium 143 Potassium 2.9 L D Chloride 106 Carbon Dioxide 28.1 Anion Gap 9 BUN 15 Creatinine 0.3 L Estim Creat Clear Calc 159.7 eGFR > 60 BUN/Creatinine Ratio 50 H Glucose 131 H Calculated Osmolality 287 Calcium 10.0 Corrected Calcium 10.1 Phosphorus 2.6 Magnesium 1.9 Total Bilirubin 0.4 AST 20 ALT 29 Alkaline Phosphatase 82 Total Protein 6.2 Albumin 3.9 Globulin 2.3 Albumin/Globulin Ratio 1.7 Assessment & Plan Assessment and plan (1) Aphasia: Status: Chronic Assessment and plan: worsened after stopping weaning from steroids, now started with faciobrachial dystonia like last admission MRI brain showed t2 hyperintense signal changes perventricular and pericallosal and left frontoparietal areas. Repeat CSF analysis showed low glucose and high protein and lymphocytosis: seen in AE, TB, Cocci and viral encephalitis and Sarcoidosis. Follow-up with CSF for AE panel from [facility] lab Continue high dose steroids: IV solumedrol 1 gram for 5 days with PPI prophylaxis Continue PT/ST as well. (2) Recent cerebrovascular accident: Status: Chronic Assessment and plan: With persistent dense right-sided weakness and aphasia Continue with aspirin (3) Essential (primary) hypertension: Status: Acute Assessment and plan: Continue with the blood pressure control (4) Chronic migraine: Status: Chronic Assessment and plan: By history, stable now. (5) Coccidioidomycosis meningitis: Status: Acute Assessment and plan: continue with the Diflucan 800 mg daily for life with close monitoring of liver enzymes.
[2024-05-14] VITALS (7 sets, daily range): BP systolic 127–139; BP diastolic 77–96; PULSE 86–93; RESP 17–19; TEMP 36.2–36.4; O2SAT 96–98
[2024-05-14 06:44] LABS: Basophils % (Auto) 0 % (0-2.5); Eosinophils % (Auto) 0 % (0-10); Hematocrit 34.7 % (36.0-46.0); Hemoglobin 11.9 g/dL (12.0-16.0); Immature Granulocytes % (Auto) 1 % (0-0); Immature Granulocytes Auto 0.13 Thou/mm3 (0.00-0.00); Lymphocytes % (Auto) 9 % (10-50); Mean Corpuscular HGB Conc 34.3 g/dl (31.0-37.0); Mean Corpuscular Hemoglobin 32.7 pg (25.0-35.0); Mean Corpuscular Volume 95 fL (80-100); Monocytes # (Auto) 0.5 Thou/mm3 (0.0-0.8); Monocytes % (Auto) 4 % (0-12); Neutrophils # (Auto) 9.3 Thou/mm3 (1.8-7.7); Neutrophils % (Auto) 86 % (37-80); Nucleated Red Blood Cell # 0.04 Thou/mm3 (0.00-0.00); Nucleated Red Blood Cell % 0 /100 WBC (0); Platelet Count 417 Thou/mm3 (140-440); RDW Standard Deviation 49.8 fL (36.4-46.3); Red Blood Count 3.64 Miln/mm3 (4.00-5.20); White Blood Count 10.9 Thou/mm3 (3.6-11.0)
[2024-05-14 07:08] LABS: Alanine Aminotransferase 28 U/L (10-49); Albumin, Serum 3.8 gm/dL (3.5-5.0); Albumin/Globulin Ratio 1.6 (1.2-2.2); Alkaline Phosphatase 77 U/L (46-116); Anion Gap 10 (7-16); Aspartate Amino Transferase 18 U/L (0-34); BUN/Creatinine Ratio 50 Ratio (12-20); Bilirubin,Total 0.4 mg/dL (0.3-1.2); Blood Urea Nitrogen 20 mg/dL (9-23); Calcium 9.9 mg/dL (8.3-10.6); Calcium (Corrected) 10.1 mg/dL (8.5-10.1); Carbon Dioxide 28.4 mMol/L (20.0-31.0); Chloride 104 mMol/L (98-107); Creatinine (Component) 0.4 mg/dL (0.6-1.3); Estimated Creatinine Clearance 119.8 mL/min (>60); Globulin 2.4 gm/dL (2.3-3.5); Glucose 127 mg/dL (74-106); Magnesium 1.9 mg/dL (1.6-2.6); Osmolality,Calculated 287 (275-295); Phosphorous 2.5 mg/dL (2.4-5.1); Potassium 3.1 mMol/L (3.4-5.1); Sodium 142 mMol/L (136-145); Total Protein 6.2 gm/dL (5.7-8.2); eGFR > 60 See Note
[2024-05-14] MEDS: DULoxetine HCL 30 MG CAPSULE 60 MG PO (09:10)
[2024-05-14] MEDS: POTASSIUM CHLORIDE 20 mEq TABCR 40 MEQ PO (09:10)
[2024-05-14] MEDS: MethylPREDNISolone. 1,000 MG in SODIUM CHLORIDE 0.9% 250 ML 250 ML 266 MG IV (09:10)
[2024-05-14] MEDS: BALSAM PERU/CASTOR OIL (Venelex) 60 GM TUBE TOP ×2 (09:11→20:41)
[2024-05-14] MEDS: CLOPIDOGREL BISULFATE 75 MG TABLET PO (09:11)
[2024-05-14] MEDS: Lisinopril 20 MG TABLET PO (09:11)
[2024-05-14] MEDS: ASPIRIN EC 81 MG TABEC PO (09:11)
[2024-05-14] MEDS: HEPARIN SOD INJ 5000 UNIT/ML VIAL SC ×2 (09:11→20:41)
--- NOTE | 2024-05-14 10:41 | PC.SS ---
SS follow up note; Patient's on Solimedrol until 05/16.
[2024-05-14] MEDS: FLUCONAZOLE/NS 400 MG IVPB 400 MG/200 ML BAG 50 MG IV ×2 (11:04→20:40)
[2024-05-14] MEDS: PANTOPRAZOLE INJ 40 MG VIAL IV (11:05)
--- NOTE | 2024-05-14 13:36 | ESPR_ITS ---
<Statement entered by Raciel Watkins MD - 05/14/24 14:19> Patient was seen and examined at the bedside this morning. Patient was more alert. Vitals were stable this morning. Potassium was repleted 40 mEq x 1 for K: 3.1. Kidney functions remained stable. Will continue with Solu-Medrol until 05/16 and follow-up with neurology recommendations. Patient is able to void by herself therefore we will only keep her on bladder scan. Holding straight straight cath in and out if patient is able to be void spontaneously. All labs and orders were reviewed. I saw and examined the patient, and I agree with current management stated by Dr Juliana MD,PGY1. Plan of care was discussed with the attending physician and resident physician. Disclaimer: Despite multiple revisions, due to the dictation software being used, the document bellow may not be free of grammatical errors including phonetic/typographic errors. However, this does not deter from our commitment to providing health care in the patient's best interest in mind. Dr. June MD, PGY 2 Documentation for date of: 05/14/24 Subjective Subjective Interval history: No overnight events. Patient seen and examined at bedside. Patient doing well, very alert and interactive, was able to say her name with prompting. Still has some difficulty following commands. Continue high-dose steroids. Exam Vital Signs Temp Pulse Resp BP Pulse Ox O2 Del Method 97.4 F 93 18 139/81 H 96 Room Air 05/14/24 12:00 05/14/24 12:05/14/24 12:05/14/24 12:05/14/24 12:05/14/24 12:00 Narrative Exam General Appearance: Alert & Oriented X0, well-nourished female who is verbal today, who is lying in bed in no acute distress HEENT: Skull symmetrical and atraumatic. Conjunctivae pink and moist. Pupils equal, round, reactive to light and accommodation (PERRL). Mucosa pink, no discharge. Cardio: Normal Rate and Rhythm with S1 and S2 heart sounds. No murmurs or extra heart sounds auscultated. No bruits on carotid auscultation. No peripheral edema or cyanosis. Lungs: Symmetric with good expansion. Chest and back non-tender. Breath sounds vesicular without crackles, wheezing or rhonchi. Abdomen: Non-tender, Non-distended, Normal Reactive Bowel Sounds Neuro: Patient alert and cooperative, some difficulty following commands. Notable dysarthria. Upper motor strength 3/5 and Lower motor strength 1/5. Hemiplegia and hemiparesis. Objective Labs 05/15/24 05:23 05/14/24 04:58 Labs: Laboratory Results - last 24 hr 05/14/24 04:58 WBC 10.9 RBC 3.64 L Hgb 11.9 L Hct 34.7 L MCV 95 MCH 32.7 MCHC 34.3 RDW Std Deviation 49.8 H Plt Count 417 Neut % (Auto) 86 H Lymph % (Auto) 9 L [place] % (Auto) 4 Eos % (Auto) 0 Baso % (Auto) 0 Neut # (Auto) 9.3 H Lymph # (Auto) 1.0 [place] # (Auto) 0.5 Eos # (Auto) 0.0 Baso # (Auto) 0.0 Immature Gran # (Auto) 0.13 H Absolute Nucleated RBC 0.04 H Immature Gran % 1 H Nucleated RBC % 0 Sodium 142 Potassium 3.1 L Chloride 104 Carbon Dioxide 28.4 Anion Gap 10 BUN 20 Creatinine 0.4 L Estim Creat Clear Calc 119.8 eGFR > 60 BUN/Creatinine Ratio 50 H Glucose 127 H Calculated Osmolality 287 Calcium 9.9 Corrected Calcium 10.1 Phosphorus 2.5 Magnesium 1.9 Total Bilirubin 0.4 AST 18 ALT 28 Alkaline Phosphatase 77 Total Protein 6.2 Albumin 3.8 Globulin 2.4 Albumin/Globulin Ratio 1.6 Quality Measures Quality Measures VTE prophylaxis Assessment & Plan Assessment Current Active Medications: Generic Name Dose Route Start Last Admin Trade Name Jabierq PRN Reason Stop Dose Admin Acetaminophen 650 mg 05/04/24 22:54 05/06/24 00:27 Acetaminophen 325 Mg Tablet PO 06/03/24 22:53 650 mg Q6H PRN Administration PAIN OR FEVER > 101 Aspirin 81 mg 05/05/24 09:00 05/14/24 09:11 Aspirin Ec 81 Mg Tabec PO 06/04/24 08:59 81 mg DAILY ROGER Administration Balsam Sol/[place] Oil 0 gm 05/06/24 21:00 05/14/24 09:11 Balsam [place] Oil (Venelex) 60 Gm Tube TOP 06/05/24 20:59 1 applicatio BID ROGER Administration Clopidogrel Bisulfate 75 mg 05/05/24 09:00 05/14/24 09:11 Clopidogrel Bisulfate 75 Mg Tablet PO 06/04/24 08:59 75 mg QDAY ROGER Administration Dextrose 25 ml 05/06/24 10:09 Dextrose 50%-Water Inj 50 Ml Syringe IV 06/05/24 10:08 Q15MIN PRN BG 50-70 responsive npo pt Dextrose 50 ml 05/06/24 10:09 Dextrose 50%-Water Inj 50 Ml Syringe IV 06/05/24 10:08 Q15MIN PRN BG <50 OR BG <70 & pt unresponsive Duloxetine HCl 60 mg 05/11/24 09:00 05/14/24 09:10 Duloxetine Hcl 30 Mg Capsule PO 06/10/24 08:59 60 mg QDAY ROGER Administration Glucagon 1 mg 05/06/24 10:09 Glucagon Inj 1 Mg Vial IM Q15MIN PRN BG <70, and no IV access Heparin Sodium (Porcine) 5,000 unit 05/04/24 23:00 05/14/24 09:11 Heparin Sod Inj 5000 Unit/Ml Vial SC 05/18/24 22:59 5,000 unit Q12HR ROGER Administration Methylprednisolone Sodium 266 mls @ 266 mls/hr 05/11/24 09:00 05/14/24 09:10 Succinate 1,000 mg/ Sodium IV 05/16/24 08:59 266 mls/hr Chloride QDAY ROGER Administration Fluconazole 400 mg in 200 mls @ 50 mls/hr 05/11/24 10:45 05/14/24 11:04 Diflucan/Ns Ivpb IV 05/18/24 10:44 50 mls/hr BID ROGER Administration Lisinopril 20 mg 05/07/24 09:00 05/14/24 09:11 Lisinopril 20 Mg Tablet PO 06/06/24 08:59 20 mg QDAY ROGER Administration Magnesium Hydroxide 30 ml 05/05/24 08:07 Milk Of Magnesia Susp 30 Ml Udc PO 06/04/24 08:06 QDAY PRN CONSTIPATION Protocol Meclizine HCl 25 mg 05/04/24 23:08 Meclizine Hcl 25 Mg Tablet PO 06/03/24 23:07 Q12H PRN Dizziness Pantoprazole Sodium 40 mg 05/11/24 09:00 05/14/24 11:05 Pantoprazole Inj 40 Mg Vial IV 06/10/24 08:59 40 mg QDAY ROGER Administration Sennosides 8.8 mg 05/05/24 08:07 Sennosides Syrup 8.8 Mg/5 Ml Udc PO 06/04/24 08:06 QDAY PRN CONSTIPATION Protocol Plan 54-year-old female with 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 #Acute encephalopathy, improved #?Autoimmune encephalitis Patient appears less responsive on exam than previous day. Difficult to ascertain as patient baseline mental status has severely deteriorated. CT head negative. Neuroconsulted. Cefepime discontinued. MRI head/brain limited by patient movement, did not show any acute pathology. Chronic white matter changes. On February, autoimmune encephalitis panel VGKC and LGI1 antibody was sent, all negative. CSF showed low glucose and high protein. Neuro recommended high-dose steroids. Patient showed significant improvement in mental status with high-dose steroids -Neurology consulted, appreciate recommendations -EEG taken, results pending -Solu-Medrol 1 g IV daily (05/11-05/16) #Pressure Ulcer, treated #Sepsis likely secondary to pressure ulcer, resolved Patient presented from SNF due to fever of 102.1, tachycardic with heart rate of 126, labs revealed leukocytosis of 11.5. Lactic acid and Pro-Ramesh is negative Patient met 3 out of 4 SIRS criteria Blood Cultures Negative after 48 hours Chest x-ray is negative for PNA. UA is negative for UTI. Monospot, rapid strep, RSV negative. In ED patient received IVF, ABX. CT A/P showed large amount of stool, possible proctitis. Blood cultures negative x 48 hours. Culture positive for Staph aureus, but minimal colony-forming units, likely colonization. Suspect buttock ulcer as source of infection. MRSA screen positive, patient started on mupirocin. Completed full treatment of Rocephin #History of hypertension Home medication is Lisinopril 10 mg qday. Patient has have elevated systolic blood pressure of 160/95. Increased Lisinopril. -Home dose of Lisinopril 10 mg increased to 20 mg daily #Coccidioides meningitis -Continue fluconazole 800 daily (IV) #Electrolyte imblance Continue to replace electrolytes as necessary. Plan: -Continue to monitor, replace as needed #CVA w/ hemiplegia and hemiparesis #Hyperlipidemia Plan -Resume home medication Aspirin and Plavix -Resume home atorvastatin 80 mg HS #Fibromyalgia #Migraines -Continue home medications: meclizine, duloxetine DVT prophylaxis: Heparin GI prophylaxis: Protonix Diet: Cardiac Lines: Peripheral IV Code status: Full code Plan of care was discussed with senior resident Dr. Watkins PGY?[address] Dmitriy Andrews MD PGY?1 Attending Provider Attestation/Addendum I have examined the patient, reviewed labs and imaging findings, discussed the case with the resident(s), and reviewed entered orders. I agree with the plan of care as outlined in this note, with these additional summaries/recommendations: Patient seen at bedside. No acute overnight events. Patient's aphasia continues to improve and facial movements are more controlled and intact. Continue high-dose IV Solu-Medrol 1 g for 5 days and will receive last dose on 05/16/24. Continue Protonix as patient is high risk for GI bleed on Plavix, aspirin, and steroids. Continue aspirin and Plavix for history of CVA. Continue high-dose fluconazole for history of cocci meningitis. Infected decubitus ulcer on admission is significantly improved and completed appropriate antibiotic course. Wound cultures grew Staph aureus. Continue pressure redistribution techniques to prevent worsening pressure ulcer. Patient and family updated on the plan and in agreement. Repeat hematology and chemistry panel in AM. Dr. Izaguirre
[2024-05-14] MEDS: Magnesium Sulfate 2 GM Ivpb 2 GM/50 ML BAG IV (16:05)
--- NOTE | 2024-05-14 21:05 | PD.NEUROPROG ---
Documentation for date of: 05/14/24 Subjective Subjective Interval history: Patient was seen in [facility] today with her family at the bedside. Continues to have dense right hemiplegia and abnormal involuntary movements involving the face and left UE, speech is slowly improving. Exam - Neurology Vital Signs Temp Pulse Resp BP Pulse Ox O2 Del Method 97.1 F 93 19 127/80 98 Room Air 05/14/24 16:00 05/14/24 16:00 05/14/24 16:00 05/14/24 16:00 05/14/24 16:00 05/14/24 16:00 Narrative Exam GENERAL APPEARANCE: Well developed, well-nourished in no acute distress. HEENT: Normocephalic, atraumatic, extraocular movements intact. Pupils: Equal reacting to light NECK: Supple, no JVD or bruits. CARDIOVASULAR: Heart: S1, S2 heard, regular without S3-S4 or murmur no rubs or gallops. LUNGS/CHEST: Clear to auscultation bilaterally. No rails, rhonchi, or wheezing. Normal inspection. ABDOMEN: Soft, nontender, with normal bowel sounds. No pulsatile masses. No rebound, rigidity, or guarding. Normal inspection and palpation. EXTREMITIES: Normal inspection and palpation. No edema, clubbing or cyanosis. SKIN: Warm and dry without rashes. Normal inspection. MUSCULOSKELETAL: No cervical, thoracic, lumbar or midline bony tenderness. Normal inspection. NEURO: Alert, awake and aphasic, but starting to verbalize, Dense right hemiplegia noted. Purposeful movements noted in the left upper and lower extremities noted.. no signs of meningeal irritation noted. Dystonia noted in the face and the left UE today. PSYCHIATRIC: normal mood and affect. Objective Labs 05/14/24 04:58 05/14/24 04:58 Labs: Laboratory Results - last 24 hr 05/14/24 04:58 WBC 10.9 RBC 3.64 L Hgb 11.9 L Hct 34.7 L MCV 95 MCH 32.7 MCHC 34.3 RDW Std Deviation 49.8 H Plt Count 417 Neut % (Auto) 86 H Lymph % (Auto) 9 L [place] % (Auto) 4 Eos % (Auto) 0 Baso % (Auto) 0 Neut # (Auto) 9.3 H Lymph # (Auto) 1.0 [place] # (Auto) 0.5 Eos # (Auto) 0.0 Baso # (Auto) 0.0 Immature Gran # (Auto) 0.13 H Absolute Nucleated RBC 0.04 H Immature Gran % 1 H Nucleated RBC % 0 Sodium 142 Potassium 3.1 L Chloride 104 Carbon Dioxide 28.4 Anion Gap 10 BUN 20 Creatinine 0.4 L Estim Creat Clear Calc 119.8 eGFR > 60 BUN/Creatinine Ratio 50 H Glucose 127 H Calculated Osmolality 287 Calcium 9.9 Corrected Calcium 10.1 Phosphorus 2.5 Magnesium 1.9 Total Bilirubin 0.4 AST 18 ALT 28 Alkaline Phosphatase 77 Total Protein 6.2 Albumin 3.8 Globulin 2.4 Albumin/Globulin Ratio 1.6 Assessment & Plan Assessment and plan (1) Aphasia: Status: Chronic Assessment and plan: worsened after stopping weaning from steroids, now started with faciobrachial dystonia like last admission MRI brain showed t2 hyperintense signal changes perventricular and pericallosal and left frontoparietal areas. Repeat CSF analysis showed low glucose and high protein and lymphocytosis: seen in AE, TB, Cocci and viral encephalitis and Sarcoidosis. Follow-up with CSF for AE panel from [facility] lab Continue high dose steroids: IV solumedrol 1 gram for 5 days with PPI prophylaxis Continue PT/ST as well. Then continue with oral Prednisone 20 mg daily for 10 days. (2) Recent cerebrovascular accident: Status: Chronic Assessment and plan: With persistent dense right-sided weakness and aphasia Continue with aspirin (3) Essential (primary) hypertension: Status: Acute Assessment and plan: Continue with the blood pressure control (4) Chronic migraine: Status: Chronic Assessment and plan: By history, stable now. (5) Coccidioidomycosis meningitis: Status: Acute Assessment and plan: continue with the Diflucan 800 mg daily for life with close monitoring of liver enzymes.
[2024-05-15] VITALS (7 sets, daily range): BP systolic 120–145; BP diastolic 76–84; PULSE 68–89; RESP 15–18; TEMP 36.1–36.5; O2SAT 95–98
[2024-05-15 06:32] LABS: Basophils % (Auto) 0 % (0-2.5); Eosinophils % (Auto) 0 % (0-10); Hematocrit 35.3 % (36.0-46.0); Hemoglobin 12.2 g/dL (12.0-16.0); Immature Granulocytes % (Auto) 2 % (0-0); Immature Granulocytes Auto 0.21 Thou/mm3 (0.00-0.00); Lymphocytes # (Auto) 1.1 Thou/mm3 (1.0-4.8); Lymphocytes % (Auto) 12 % (10-50); Mean Corpuscular HGB Conc 34.6 g/dl (31.0-37.0); Mean Corpuscular Hemoglobin 32.7 pg (25.0-35.0); Mean Corpuscular Volume 95 fL (80-100); Monocytes # (Auto) 0.4 Thou/mm3 (0.0-0.8); Monocytes % (Auto) 4 % (0-12); Neutrophils # (Auto) 7.2 Thou/mm3 (1.8-7.7); Neutrophils % (Auto) 81 % (37-80); Nucleated Red Blood Cell # 0.13 Thou/mm3 (0.00-0.00); Nucleated Red Blood Cell % 2 /100 WBC (0); Platelet Count 382 Thou/mm3 (140-440); RDW Standard Deviation 48.5 fL (36.4-46.3); Red Blood Count 3.73 Miln/mm3 (4.00-5.20); White Blood Count 8.9 Thou/mm3 (3.6-11.0)
[2024-05-15 07:38] LABS: Alanine Aminotransferase 35 U/L (10-49); Albumin, Serum 3.8 gm/dL (3.5-5.0); Albumin/Globulin Ratio 1.8 (1.2-2.2); Alkaline Phosphatase 78 U/L (46-116); Anion Gap 7 (7-16); Aspartate Amino Transferase 18 U/L (0-34); BUN/Creatinine Ratio 45 Ratio (12-20); Bilirubin,Total 0.4 mg/dL (0.3-1.2); Blood Urea Nitrogen 18 mg/dL (9-23); Calcium 9.5 mg/dL (8.3-10.6); Calcium (Corrected) 9.7 mg/dL (8.5-10.1); Carbon Dioxide 29.3 mMol/L (20.0-31.0); Chloride 101 mMol/L (98-107); Creatinine (Component) 0.4 mg/dL (0.6-1.3); Estimated Creatinine Clearance 119.8 mL/min (>60); Globulin 2.1 gm/dL (2.3-3.5); Glucose 134 mg/dL (74-106); Magnesium 2.4 mg/dL (1.6-2.6); Osmolality,Calculated 277 (275-295); Phosphorous 2.1 mg/dL (2.4-5.1); Potassium 3.1 mMol/L (3.4-5.1); Sodium 137 mMol/L (136-145); Total Protein 5.9 gm/dL (5.7-8.2); eGFR > 60 See Note
--- NOTE | 2024-05-15 08:57 | PC.NURSE ---
[facility] downtime occurred on 05/15/24 from 0100 to 0700.
[2024-05-15] MEDS: DULoxetine HCL 30 MG CAPSULE 60 MG PO (09:18)
[2024-05-15] MEDS: Lisinopril 20 MG TABLET PO (09:19)
[2024-05-15] MEDS: ASPIRIN EC 81 MG TABEC PO (09:19)
[2024-05-15] MEDS: CLOPIDOGREL BISULFATE 75 MG TABLET PO (09:19)
[2024-05-15] MEDS: PANTOPRAZOLE INJ 40 MG VIAL IV (09:19)
[2024-05-15] MEDS: FLUCONAZOLE 100 MG TABLET 800 MG PO (09:19)
[2024-05-15] MEDS: MethylPREDNISolone. 1,000 MG in SODIUM CHLORIDE 0.9% 250 ML 250 ML 266 MG IV (09:20)
[2024-05-15] MEDS: NAPH,KPH MBDB 1 PACKET (1.5 GM) 2 PACKET PO (09:21)
[2024-05-15] MEDS: POTASSIUM CHLORIDE 10% 20 MEQ/15 ML UDC 40 MEQ PO (09:21)
[2024-05-15] MEDS: BALSAM PERU/CASTOR OIL (Venelex) 60 GM TUBE TOP ×2 (09:22→20:53)
[2024-05-15] MEDS: HEPARIN SOD INJ 5000 UNIT/ML VIAL SC ×2 (09:22→20:54)
--- NOTE | 2024-05-15 13:23 | ESPR_ITS ---
<Statement entered by Raciel Watkins MD - 05/15/24 15:10> Patient was seen and examined at the bedside this morning. Patient appears markedly improved and is able to interact and alert. She was able to wiggle her both toes. Able to verbalize with short phrases. Will continue with Solu- Medrol for 1 more day. Neurology recommended outpatient prednisone 20 mg for 10 days and follow-up. Anticipating discharge tomorrow. I saw and examined the patient, and I agree with current management stated by Dr. Amanda MD,PGY1. Plan of care was discussed with the attending physician and resident physician. Disclaimer: Despite multiple revisions, due to the dictation software being used, the document bellow may not be free of grammatical errors including phonetic/typographic errors. However, this does not deter from our commitment to providing health care in the patient's best interest in mind. Dr. Tiago MD, PGY 2 Documentation for date of: 05/15/24 Subjective Subjective Interval history: No overnight events. Patient seen examined at bedside. Patient shown significant improvement, alert and interactive. Able to verbalize short/phrases. Follows commands. 1 more day high-dose steroids, plan for discharge tomorrow with p.o. prednisone. Exam Vital Signs Temp Pulse Resp BP Pulse Ox O2 Del Method 97.5 F 68 18 129/76 98 Nasal Cannula 05/15/24 12:00 05/15/24 12:00 05/15/24 12:00 05/15/24 12:00 05/15/24 12:00 05/15/24 08:00 Narrative Exam General Appearance: Alert & Oriented X0, well-nourished female who is verbal today, who is lying in bed in no acute distress HEENT: Skull symmetrical and atraumatic. Conjunctivae pink and moist. Pupils equal, round, reactive to light and accommodation (PERRL). Mucosa pink, no discharge. Cardio: Normal Rate and Rhythm with S1 and S2 heart sounds. No murmurs or extra heart sounds auscultated. No bruits on carotid auscultation. No peripheral edema or cyanosis. Lungs: Symmetric with good expansion. Chest and back non-tender. Breath sounds vesicular without crackles, wheezing or rhonchi. Abdomen: Non-tender, Non-distended, Normal Reactive Bowel Sounds Neuro: Patient alert and cooperative, following commands. Notable dysarthria. Upper motor strength 3/5 and Lower motor strength 1/5. Hemiplegia and hemiparesis. Objective Labs 05/15/24 05:23 05/15/24 05:23 Labs: Laboratory Results - last 24 hr 05/15/24 05:23 WBC 8.9 RBC 3.73 L Hgb 12.2 Hct 35.3 L MCV 95 MCH 32.7 MCHC 34.6 RDW Std Deviation 48.5 H Plt Count 382 D Neut % (Auto) 81 H Lymph % (Auto) 12 [place] % (Auto) 4 Eos % (Auto) 0 Baso % (Auto) 0 Neut # (Auto) 7.2 Lymph # (Auto) 1.1 [place] # (Auto) 0.4 Eos # (Auto) 0.0 Baso # (Auto) 0.0 Immature Gran # (Auto) 0.21 H Absolute Nucleated RBC 0.13 H Immature Gran % 2 H Nucleated RBC % 2 H Sodium 137 Potassium 3.1 L Chloride 101 Carbon Dioxide 29.3 Anion Gap 7 BUN 18 Creatinine 0.4 L Estim Creat Clear Calc 119.8 eGFR > 60 BUN/Creatinine Ratio 45 H Glucose 134 H Calculated Osmolality 277 Calcium 9.5 Corrected Calcium 9.7 Phosphorus 2.1 L Magnesium 2.4 Total Bilirubin 0.4 AST 18 ALT 35 Alkaline Phosphatase 78 Total Protein 5.9 Albumin 3.8 Globulin 2.1 L Albumin/Globulin Ratio 1.8 Quality Measures Quality Measures VTE prophylaxis Assessment & Plan Assessment Current Active Medications: Generic Name Dose Route Start Last Admin Trade Name Freq PRN Reason Stop Dose Admin Acetaminophen 650 mg 05/04/24 22:54 05/06/24 00:27 Acetaminophen 325 Mg Tablet PO 06/03/24 22:53 650 mg Q6H PRN Administration PAIN OR FEVER > 101 Aspirin 81 mg 05/05/24 09:00 05/15/24 09:19 Aspirin Ec 81 Mg Tabec PO 06/04/24 08:59 81 mg DAILY ROGER Administration Balsam Sol/[place] Oil 0 gm 05/06/24 21:00 05/15/24 09:22 Balsam Sol/[place] Oil (Venelex) 60 Gm Tube TOP 06/05/24 20:59 1 applicatio BID ROGER Administration Clopidogrel Bisulfate 75 mg 05/05/24 09:00 05/15/24 09:19 Clopidogrel Bisulfate 75 Mg Tablet PO 06/04/24 08:59 75 mg QDAY ROGER Administration Dextrose 25 ml 05/06/24 10:09 Dextrose 50%-Water Inj 50 Ml Syringe IV 06/05/24 10:08 Q15MIN PRN BG 50-70 responsive npo pt Dextrose 50 ml 05/06/24 10:09 Dextrose 50%-Water Inj 50 Ml Syringe IV 06/05/24 10:08 Q15MIN PRN BG <50 OR BG <70 & pt unresponsive Duloxetine HCl 60 mg 05/11/24 09:00 05/15/24 09:18 Duloxetine Hcl 30 Mg Capsule PO 06/10/24 08:59 60 mg QDAY ROGER Administration Fluconazole 800 mg 05/15/24 09:00 05/15/24 09:19 Fluconazole 100 Mg Tablet PO 05/22/24 08:59 800 mg QDAY ROGER Administration Glucagon 1 mg 05/06/24 10:09 Glucagon Inj 1 Mg Vial IM Q15MIN PRN BG <70, and no IV access Heparin Sodium (Porcine) 5,000 unit 05/04/24 23:00 05/15/24 09:22 Heparin Sod Inj 5000 Unit/Ml Vial SC 05/18/24 22:59 5,000 unit Q12HR ROGER Administration Methylprednisolone Sodium 266 mls @ 266 mls/hr 05/11/24 09:00 05/15/24 09:20 Succinate 1,000 mg/ Sodium IV 05/16/24 08:59 266 mls/hr Chloride QDAY ROGER Administration Lisinopril 20 mg 05/07/24 09:00 05/15/24 09:19 Lisinopril 20 Mg Tablet PO 06/06/24 08:59 20 mg QDAY ROGER Administration Magnesium Hydroxide 30 ml 05/05/24 08:07 Milk Of Magnesia Susp 30 Ml Udc PO 06/04/24 08:06 QDAY PRN CONSTIPATION Protocol Meclizine HCl 25 mg 05/04/24 23:08 Meclizine Hcl 25 Mg Tablet PO 06/03/24 23:07 Q12H PRN Dizziness Pantoprazole Sodium 40 mg 05/11/24 09:00 05/15/24 09:19 Pantoprazole Inj 40 Mg Vial IV 06/10/24 08:59 40 mg QDAY ROGER Administration Sennosides 8.8 mg 05/05/24 08:07 Sennosides Syrup 8.8 Mg/5 Ml Udc PO 06/04/24 08:06 QDAY PRN CONSTIPATION Protocol Plan 54-year-old female with 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 #Acute encephalopathy, improved #?Autoimmune encephalitis Patient appears less responsive on exam than previous day. Difficult to ascertain as patient baseline mental status has severely deteriorated. CT head negative. Neuroconsulted. Cefepime discontinued. MRI head/brain limited by patient movement, did not show any acute pathology. Chronic white matter changes. On February, autoimmune encephalitis panel VGKC and LGI1 antibody was sent, all negative. CSF showed low glucose and high protein. Neuro recommended high-dose steroids. Patient showed significant improvement in mental status with high-dose steroids -Neurology consulted, appreciate recommendations -EEG taken, results pending -Solu-Medrol 1 g IV daily (05/11-05/16) -Plan to DC with prednisone 20 mg p.o. x 10 days #Pressure Ulcer, treated #Sepsis likely secondary to pressure ulcer, resolved Patient presented from SNF due to fever of 102.1, tachycardic with heart rate of 126, labs revealed leukocytosis of 11.5. Lactic acid and Pro-Ramesh is negative Patient met 3 out of 4 SIRS criteria Blood Cultures Negative after 48 hours Chest x-ray is negative for PNA. UA is negative for UTI. Monospot, rapid strep, RSV negative. In ED patient received IVF, ABX. CT A/P showed large amount of stool, possible proctitis. Blood cultures negative x 48 hours. Culture positive for Staph aureus, but minimal colony-forming units, likely colonization. Suspect buttock ulcer as source of infection. MRSA screen positive, patient started on mupirocin. Completed full treatment of Rocephin #History of hypertension Home medication is Lisinopril 10 mg qday. Patient has have elevated systolic blood pressure of 160/95. Increased Lisinopril. -Home dose of Lisinopril 10 mg increased to 20 mg daily #Coccidioides meningitis -Continue fluconazole 800 daily (IV) #Electrolyte imblance Continue to replace electrolytes as necessary. Plan: -Continue to monitor, replace as needed #CVA w/ hemiplegia and hemiparesis #Hyperlipidemia Plan -Resume home medication Aspirin and Plavix -Resume home atorvastatin 80 mg HS #Fibromyalgia #Migraines -Continue home medications: meclizine, duloxetine DVT prophylaxis: Heparin GI prophylaxis: Protonix Diet: Cardiac Lines: Peripheral IV Code status: Full code Plan of care was discussed with senior resident Dr. Watkins PGY?[address] Dmitriy Andrews MD PGY?1 Attending Provider Attestation/Addendum I have examined the patient, reviewed labs and imaging findings, discussed the case with the resident(s), and reviewed entered orders. I agree with the plan of care as outlined in this note, with these additional summaries/recommendations: Patient seen at bedside. No acute overnight events. Continue high-dose IV Solu-Medrol 1 g for 5 days and will receive last dose on 05/16/24 and then likely discharge with prednisone taper. Continue Protonix as patient is high risk for GI bleed on Plavix, aspirin, and steroids. Continue aspirin and Plavix for history of CVA. Continue high-dose fluconazole for history of cocci meningitis. Infected decubitus ulcer on admission is significantly improved and completed appropriate antibiotic course. Wound cultures grew Staph aureus. Continue wound care. Continue pressure redistribution techniques to prevent worsening pressure ulcer. Patient and family updated on the plan and in agreement. Repeat hematology and chemistry panel in AM. Dr. Izaguirre
--- NOTE | 2024-05-15 23:07 | PD.VPROG1 ---
Telemedicine visit statement This visit was conducted with the use of virtual visit was obtained on 05/15/24 at 2307. Documentation for date of: 05/15/24 Subjective Subjective Interval history: Patient is in medsurg with family. aphasia is improving, Right dense hemiplegia unchanged. tolerating oral diet well. Virtual exam Vital Signs Temp Pulse Resp BP Pulse Ox O2 Del Method 96.9 F 82 18 145/79 H 96 Room Air 05/15/24 20:00 05/15/24 20:00 05/15/24 20:00 05/15/24 20:00 05/15/24 20:00 05/15/24 20:00 Objective Labs 05/15/24 05:23 05/15/24 05:23 Labs: Laboratory Results - last 24 hr 05/15/24 05:23 WBC 8.9 RBC 3.73 L Hgb 12.2 Hct 35.3 L MCV 95 MCH 32.7 MCHC 34.6 RDW Std Deviation 48.5 H Plt Count 382 D Neut % (Auto) 81 H Lymph % (Auto) 12 [place] % (Auto) 4 Eos % (Auto) 0 Baso % (Auto) 0 Neut # (Auto) 7.2 Lymph # (Auto) 1.1 [place] # (Auto) 0.4 Eos # (Auto) 0.0 Baso # (Auto) 0.0 Immature Gran # (Auto) 0.21 H Absolute Nucleated RBC 0.13 H Immature Gran % 2 H Nucleated RBC % 2 H Sodium 137 Potassium 3.1 L Chloride 101 Carbon Dioxide 29.3 Anion Gap 7 BUN 18 Creatinine 0.4 L Estim Creat Clear Calc 119.8 eGFR > 60 BUN/Creatinine Ratio 45 H Glucose 134 H Calculated Osmolality 277 Calcium 9.5 Corrected Calcium 9.7 Phosphorus 2.1 L Magnesium 2.4 Total Bilirubin 0.4 AST 18 ALT 35 Alkaline Phosphatase 78 Total Protein 5.9 Albumin 3.8 Globulin 2.1 L Albumin/Globulin Ratio 1.8 Assessment & Plan Assessment (1) Aphasia: with faciobrachial dystonia : likely from AE worsened after stopping weaning from steroids MRI brain showed nothing acute but noted prominent chronic white matter changes and ventriculomegaly Repeat CSF analysis showed low glucose and high protein and lymphocytosis: seen in AE, TB, Cocci and viral encephalitis and Sarcoidosis. Will make sure that the CSF for AE panel will be sent this time to [facility] Continue her on high dose steroids: IV solumedrol 1 gram for 5 days with PPI prophylaxis until tomorrow. Plan is to go home tomorrow with family, she will continue oral steroids. (2) Recent cerebrovascular accident: With persistent dense right-sided weakness and aphasia Continue with aspirin (3) Essential (primary) hypertension: Continue with the blood pressure control (4) Chronic migraine: By history, stable now. 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
[2024-05-16] VITALS: BP 127/77; PULSE 83; RESP 17; TEMP 36.4; O2SAT 97
[2024-05-16 04:00] VITALS: BP 135/87; PULSE 88; RESP 17; TEMP 36.4; O2SAT 95
[2024-05-16 06:17] LABS: Basophils % (Auto) 0 % (0-2.5); Eosinophils % (Auto) 0 % (0-10); Hematocrit 35.8 % (36.0-46.0); Hemoglobin 12.4 g/dL (12.0-16.0); Immature Granulocytes % (Auto) 2 % (0-0); Immature Granulocytes Auto 0.15 Thou/mm3 (0.00-0.00); Lymphocytes # (Auto) 0.8 Thou/mm3 (1.0-4.8); Lymphocytes % (Auto) 11 % (10-50); Mean Corpuscular HGB Conc 34.6 g/dl (31.0-37.0); Mean Corpuscular Hemoglobin 32.5 pg (25.0-35.0); Mean Corpuscular Volume 94 fL (80-100); Monocytes # (Auto) 0.3 Thou/mm3 (0.0-0.8); Monocytes % (Auto) 4 % (0-12); Neutrophils # (Auto) 6.5 Thou/mm3 (1.8-7.7); Neutrophils % (Auto) 83 % (37-80); Nucleated Red Blood Cell % 1 /100 WBC (0); Platelet Count 401 Thou/mm3 (140-440); RDW Standard Deviation 49.1 fL (36.4-46.3); Red Blood Count 3.81 Miln/mm3 (4.00-5.20); White Blood Count 7.8 Thou/mm3 (3.6-11.0)
[2024-05-16 06:48] LABS: Alanine Aminotransferase 33 U/L (10-49); Albumin, Serum 3.5 gm/dL (3.5-5.0); Albumin/Globulin Ratio 1.7 (1.2-2.2); Alkaline Phosphatase 76 U/L (46-116); Anion Gap 9 (7-16); Aspartate Amino Transferase 19 U/L (0-34); BUN/Creatinine Ratio 45 Ratio (12-20); Bilirubin,Total 0.5 mg/dL (0.3-1.2); Blood Urea Nitrogen 18 mg/dL (9-23); Calcium 9.8 mg/dL (8.3-10.6); Calcium (Corrected) 10.2 mg/dL (8.5-10.1); Carbon Dioxide 29.1 mMol/L (20.0-31.0); Chloride 104 mMol/L (98-107); Creatinine (Component) 0.4 mg/dL (0.6-1.3); Estimated Creatinine Clearance 119.8 mL/min (>60); Globulin 2.1 gm/dL (2.3-3.5); Glucose 150 mg/dL (74-106); Magnesium 2.2 mg/dL (1.6-2.6); Osmolality,Calculated 288 (275-295); Phosphorous 3.1 mg/dL (2.4-5.1); Potassium 3.5 mMol/L (3.4-5.1); Sodium 142 mMol/L (136-145); Total Protein 5.6 gm/dL (5.7-8.2); eGFR > 60 See Note
[2024-05-16 08:00] VITALS: BP 136/75; PULSE 79; RESP 18; TEMP 36.2; O2SAT 95
[2024-05-16 09:13] VITALS: BP 136/75; PULSE 79
[2024-05-16] MEDS: Lisinopril 20 MG TABLET PO (09:13)
[2024-05-16] MEDS: ASPIRIN EC 81 MG TABEC PO (09:13)
[2024-05-16] MEDS: FLUCONAZOLE 100 MG TABLET 800 MG PO (09:14)
[2024-05-16] MEDS: CLOPIDOGREL BISULFATE 75 MG TABLET PO (09:14)
[2024-05-16] MEDS: DULoxetine HCL 30 MG CAPSULE 60 MG PO (09:14)
[2024-05-16] MEDS: HEPARIN SOD INJ 5000 UNIT/ML VIAL SC (09:15)
[2024-05-16] MEDS: BALSAM PERU/CASTOR OIL (Venelex) 60 GM TUBE TOP (09:15)
[2024-05-16] MEDS: PANTOPRAZOLE INJ 40 MG VIAL IV (09:24)
--- NOTE | 2024-05-16 10:39 | CHAP ---
Patient was visited by a Spiritual Care volunteer on 05/16/2024 between 0900 and 1017 and received comfort, encouragement and/or prayer.
[2024-05-16 12:00] VITALS: BP 146/87; PULSE 82; PULSE 84; RESP 20; TEMP 36.6; O2SAT 95
--- NOTE | 2024-05-16 13:28 | ESDS_ITS ---
<Statement entered by Raciel Watkins MD - 05/16/24 13:42> I saw and examined the patient, and I agree with current management stated by Dr Juliana MD,PGY1. Plan of care was discussed with the attending physician and resident physician. Disclaimer: Despite multiple revisions, due to the dictation software being used, the document bellow may not be free of grammatical errors including phonetic/typographic errors. However, this does not deter from our commitment to providing health care in the patient's best interest in mind. Dr. June MD, PGY 2 Planned Discharge Date 05/16/24 DS: Providers Provider Date of admission: 05/04/24 22:54 Primary care physician: Physician No Primary/Family Admitting Provider: Ariel Tijerina MD Attending Provider on Admission: González Izaguirre MD Consults: 05/05/24 07:49 Referral Wound Care Stat Comment: 05/05/24 07:50 Referral Registered Dietitian Stat Comment: 05/05/24 13:18 Referral Speech Therapy Routine Comment: 05/06/24 16:37 Referral Physical Therapy Routine Comment: Physician Instructions: 05/08/24 13:26 Consult to Neurology / Tele-Neurology Routine Comment: Consulting Provider: Varun Santiago Attending Provider on DC: Garcia Lamb MD Discharging Provider: González Izaguirre MD DS: Diagnosis Problem List Completed Was Problem List Reviewed/Reconciled?: Yes Hospital Course Hospital Course Hospital course: 58-year-old female with past medical history of coccidiomycosis 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 On presentation patient was septic with temperature of 102.1, tachycardic with heart rate of 126, labs revealed leukocytosis, hypokalemia pota ssium of 3.1 and hypophosphatemia, urine was negative for UTI, EKG unremarkable, chest x-ray negative for PNA. Influenza and COVID is negative. In ED patient received bolus, ceftriaxone, Tylenol, potassium and was admitted for sepsis of unknown source. Patient was found to have ulcer of buttock, completed course of antibiotics. During hospital stay, family. Patient was less interactive than baseline, at time of exam patient was nonverbal, poorly responsive, did not follow commands. Neurology was consulted. CSF was drawn, showed low glucose and extremely high protein, sample sent to [facility] for further analysis. Patient started high-dose steroids and showed taken to improvement, was able to converse, follow commands appropriately, increased attentiveness. Patient medically cleared and stable for discharge. Discharge plan: You have been started on the following medications: -Prednisone 20 mg once daily for 10 days -Lisinopril 20 mg once daily -Mupirocin ointment, apply 3 times daily to nasal entry Please continue all other medications as previously prescribed Please follow-up with PCP in 1-2 weeks Please follow-up outpatient with neurologist Dr Santiago. Return to ED if you have new or worsening symptoms. Diagnoses: #Acute encephalopathy, resolved #?Autoimmune encephalitis #Pressure Ulcer, treated #Sepsis likely secondary to pressure ulcer, resolved #History of hypertension #Coccidioides meningitis #Electrolyte imblance #CVA w/ hemiplegia and hemiparesis #Hyperlipidemia #Fibromyalgia #Migraines Plan of care discussed with senior resident Dr. Watkins PGY?[address] Lamb. Devyn Andrews MD PGY-1 Time Spent with Patient Time attestation: Total time spent providing and/or coordinating discharge services: Exam Vital Signs Temp Pulse Resp BP Pulse Ox O2 Del Method 97.9 F 82 20 146/87 H 95 Room Air 05/16/24 12:00 05/16/24 12:00 05/16/24 12:05/16/24 12:00 05/16/24 12:05/16/24 04:00 Narrative Exam General Appearance: Alert & Oriented X2, well-nourished female who is verbal today, who is lying in bed in no acute distress HEENT: Skull symmetrical and atraumatic. Conjunctivae pink and moist. Pupils equal, round, reactive to light and accommodation (PERRL). Mucosa pink, no discharge. Cardio: Normal Rate and Rhythm with S1 and S2 heart sounds. No murmurs or extra heart sounds auscultated. No bruits on carotid auscultation. No peripheral edema or cyanosis. Lungs: Symmetric with good expansion. Chest and back non-tender. Breath sounds vesicular without crackles, wheezing or rhonchi. Abdomen: Non-tender, Non-distended, Normal Reactive Bowel Sounds Neuro: Patient alert and cooperative, following commands. Notable dysarthria. Upper motor strength 3/5 and Lower motor strength 1/5. Hemiplegia and hemiparesis. Discharge Plan Plan Patient Disposition: Home w/HOME HEALTH Patient condition on transfer: Stable Care Plan Goals: You have been started on the following medications: -Prednisone 20 mg once daily for 10 days -Lisinopril 20 mg once daily -Mupirocin ointment, apply 3 times daily to nasal entry Please continue all other medications as previously prescribed Please follow-up with PCP in 1-2 weeks Please follow-up outpatient with neurologist Dr Santiago. Return to ED if you have new or worsening symptoms. Prescriptions/Referrals Prescriptions/Med Rec: Rj gurdeep eng-castor oil Ointment 1 applic topical BID 30 Days Qty: 60 0RF lisinopril 20 mg tablet 20 mg PO QDAY 30 Days Qty: 30 0RF mupirocin 2 % Ointment 1 applic top TID 4 Days Qty: 15 0RF prednisone 20 mg tablet 20 mg PO QDAY 10 Days Qty: 10 0RF Continued acetaminophen 500 mg tablet 500 mg PO [id number] PRN (Reason: Pain) meclizine 25 mg tablet 25 mg PO Q12H PRN (Reason: Dizziness) duloxetine 30 mg capsule,delayed release(DR/EC) 30 mg PO QDAY clopidogrel [Plavix] 75 mg Tablet 75 mg PO QDAY aspirin 81 mg tablet,delayed release (DR/EC) 81 mg PO DAILY Patient Comments: TOME 1 TABLETA POR V A ORAL TODOS LOS D FOR 90 DAYS fluconazole 200 mg tablet 800 mg PO QDAY 30 Days Qty: 120 12RF sennosides [senna] 8.6 mg Tablet 8.6 mg PO QDAY PRN (Reason: Constipation) ondansetron HCl 4 mg Tablet 4 mg PO Q6H PRN (Reason: Nausea And Vomiting) magnesium hydroxide [Milk of Magnesia] 400 mg/5 mL Suspension 15 ml PO Q72H PRN (Reason: Constipation) bisacodyl [Dulcolax (bisacodyl)] 10 mg Suppository 10 mg OK Q72H PRN (Reason: Constipation) Fleet Enema 19-7 gram/118 mL Enema 118 ml OK Q72H Discontinued lisinopril 10 mg Tablet 10 mg PO QDAY Tussin 100 mg/5 mL Syrup 300 mg PO Q6H PRN (Reason: Cough) Referrals: No Primary/Family,Physician [Primary Care Provider] - Varun Santiago MD [Physician] - Patient/Caregiver Discharge Instructions Discharge Activity: as per physical therapy Education Materials: Sepsis, Understanding Sepsis Print Language: Belgian Stand Alone Forms: Sarah Award Info., Patient Portal Info Letter Discharge Order Discharge Orders: Discharge (Routine); Ordered 05/16/24 Ordered By: Fernando Lawrence Quality Discharge Quality Measures VTE prophylaxis Attestestation MD Attestation I attest that I was physically present for the evaluation, physical examination, lab and imaging review of the patient with the residents. I discussed the case with the residents and agree with the findings and plans of care as documented above. At bedside today, patient appears comfortable. Was alert and responsive, able to answer questions and follow commands appropriately. Lab results and vital signs have been stable. We will discharge patient on oral prednisone 20 mg daily for 10 days. Advised patient to follow-up with PCP and neurology in 1 to 2 weeks of discharge. Garcia Lamb MD
[2024-05-17 06:38] LABS: VDRL, CSF Qual* NON-REACTIVE
[2024-05-17 06:40] LABS: Angiotensin Convert Enz, CSF* <5 U/L (< OR = 15); Myelin Basic Protein, CSF* <2.0 mcg/L (< OR = 4.0); Oligoclonal Bands, CSF* ABSENT (ABSENT)
--- NOTE | 2024-05-17 10:28 | PC.CM ---
Addendum entered by Cary Tesfaye RN 05/17/24 10:54: Start of care date with [facility] is 05/18/24 Original Note: dc summary and dc orders sent to [facility]. Pending start of care date.
== END 2024-05-16 14:00 | disposition home health service (06) | DRG 871 ==
LOC: SERX 21:22 → SERHOLD 23:34 → S3SX 05-05 01:59
PROVIDERS: Nurse Practitioner Family; Psychiatry & Neurology Neurology; Student in an Organized Health Care Education/Training Program; Admitting Provider Internal Medicine; Emergency Provider Emergency Medicine; Visit Provider Student in an Organized Health Care Education/Training Program
DX: A41.02 Sepsis due to Methicillin resistant Staphylococcus aureus (principal); B38.4 Coccidioidomycosis meningitis; G04.81 Other encephalitis and encephalomyelitis; I69.351 Hemiplegia and hemiparesis following cerebral infarction affecting right dominant side; I10 Essential (primary) hypertension; E78.5 Hyperlipidemia, unspecified; D86.9 Sarcoidosis, unspecified; M79.7 Fibromyalgia; M85.861 Other specified disorders of bone density and structure, right lower leg; M17.11 Unilateral primary osteoarthritis, right knee; E87.6 Hypokalemia; E83.39 Other disorders of phosphorus metabolism; Z90.710 Acquired absence of both cervix and uterus; Z87.891 Personal history of nicotine dependence; L89.322 Pressure ulcer of left buttock, stage 2; G43.909 Migraine, unspecified, not intractable, without status migrainosus; Z79.02 Long term (current) use of antithrombotics/antiplatelets; Z79.82 Long term (current) use of aspirin; Z79.899 Other long term (current) drug therapy; Z11.52 Encounter for screening for COVID-19; Z83.3 Family history of diabetes mellitus
CPT/HCPCS: 36415; 70450; 70551; 71045; 73564; 74177; 77002; 80048; 80053; 80061; 81001; 82040; 82042; 82164; 82784; 82945; 83605; 83615; 83690; 83735; 83873; 83880; 83916; 84100; 84132; 84145; 84157; 84443; 84484; 85025; 85610; 85730; 86171; 86308; 86580; 86592; 87040; 87070; 87077; 87081; 87086; 87186; 87205; 87400; 87634; 87651; 87811; 89051; 92526; 92610; 93005; 93225; 95816; 97162; 99285; A4649; J0692; J0696; J1450; J1643; J2470; J2919; J3475; J3480; J3490; J7030; J7040; J7050; Q9967; A9270

== ENCOUNTER → 2024-06-19 | Outpatient (CLI) | payer BC, SELFPAY ==
[2024-06-19 10:06] LABS: Albumin, Serum 4.2 gm/dL (3.4-4.8); Anion Gap 11 (7-16); BUN/Creatinine Ratio 25 Ratio (12-20); Blood Urea Nitrogen 10 mg/dL (9-23); Calcium 10.4 mg/dL (8.3-10.6); Calcium (Corrected) 10.4 mg/dL (8.5-10.1); Carbon Dioxide 27.3 mMol/L (20.0-31.0); Chloride 106 mMol/L (98-107); Creatinine (Component) 0.4 mg/dL (0.6-1.3); Glucose 104 mg/dL (74-106); Osmolality,Calculated 285 (275-295); Phosphorous 3.6 mg/dL (2.4-5.1); Potassium 3.4 mMol/L (3.4-5.1); Sodium 144 mMol/L (136-145); eGFR > 60 See Note
== END | disposition home or self-care (01) ==
PROVIDERS: PCP Family Medicine; Referring Provider Psychiatry & Neurology Neurology; Visit Provider Psychiatry & Neurology Neurology
DX: G04.81 Other encephalitis and encephalomyelitis (principal); R20.2 Paresthesia of skin; I10 Essential (primary) hypertension
CPT/HCPCS: 36415; 80069

== ENCOUNTER → 2024-06-25 | Outpatient (CLI) | payer BC, SELFPAY | END | disposition home or self-care (01) | PROVIDERS: PCP Family Medicine; Referring Provider Family Medicine; Visit Provider Surgery | DX: L89.322 Pressure ulcer of left buttock, stage 2 (principal); I10 Essential (primary) hypertension; R26.2 Difficulty in walking, not elsewhere classified; R53.1 Weakness; M13.842 Other specified arthritis, left hand; M13.841 Other specified arthritis, right hand; Z99.3 Dependence on wheelchair | CPT/HCPCS: 99214; A9270; G0463 ==

== ENCOUNTER → 2024-07-02 | Outpatient (CLI) | payer BC, SELFPAY | END | disposition home or self-care (01) | LOC: SWHD 09:49 | PROVIDERS: PCP Specialist; Referring Provider Specialist; Visit Provider Student in an Organized Health Care Education/Training Program | DX: L89.322 Pressure ulcer of left buttock, stage 2 (principal); I10 Essential (primary) hypertension; R26.2 Difficulty in walking, not elsewhere classified; R53.1 Weakness; M13.842 Other specified arthritis, left hand; M13.841 Other specified arthritis, right hand; Z99.3 Dependence on wheelchair | CPT/HCPCS: 99212; G0463 ==

== ENCOUNTER → 2024-07-09 | Outpatient (CLI) | payer BC, SELFPAY | END | disposition home or self-care (01) | LOC: SWHD 09:42 | PROVIDERS: PCP Family Medicine; Referring Provider Family Medicine; Visit Provider Student in an Organized Health Care Education/Training Program | DX: L89.322 Pressure ulcer of left buttock, stage 2 (principal); I10 Essential (primary) hypertension; R26.2 Difficulty in walking, not elsewhere classified; R53.1 Weakness; M13.842 Other specified arthritis, left hand; M13.841 Other specified arthritis, right hand; Z99.3 Dependence on wheelchair | CPT/HCPCS: 99212; G0463 ==

== ENCOUNTER → 2024-07-21 | Outpatient (CLI) | payer BC, SELFPAY ==
--- NOTE | 2024-07-21 14:00 | XR_ITS ---
Examination: MRI of brain without intravenous contrast. MRI brain with intravenous contrast. Date and time of exam:July 21, 2024 at 1429 hours Comparison May 09, 2024 INDICATIONS: Diagnosis encephalitis, headaches and dizziness right-sided body weakness history CVA January 2024 Technique: Multiple axial and sagittal images of the brain to been obtained. Siemens high-resolution 1.52 Slime short bore scanner utilized. Sagittal sections, T1 weighted images, TR 500, TE 14, are performed. Axial sections proton-density and T2-weighted images have been obtained. Inversion recovery axial images, TR 9260, TE 111, TR 2500. Diffusion weighted images, axial sections, TR 4800, TE 128, B value 1000. Axial sections, ADC map, TR 4800, TE 128. Axial and coronal images were also obtained post 11 cc gadolinium administered intravenously. Findings:: Enlargement of the sella turcica is not present. The optic chiasm and infundibular stalk are not remarkable. There is no localized enlargement of the medulla or awilda. Fourth ventricle and cerebellar tonsils appear normal in position. No subacute area of hemorrhage density is seen. Fourth ventricle is midline. Mass in the cerebellopontine angle region is not evident. 7th and 8th nerve complexes exhibit symmetry Globes are symmetrical Orbital musculature including medial lateral rectus muscles do not exhibit abnormality Increased white matter signal is prominent including in the brainstem Effacement of the cortical sulcal markings is not identified. Mass effect upon the ventricular system is not identified. Diffusion-weighted images demonstrate no focus of restricted diffusion Contrast images demonstrate no abnormal enhancement Impression: Negative for acute hemorrhage mass effect or midline shift No acute infarct Prominent chronic microvascular white matter change
== END | disposition home or self-care (01) ==
LOC: SMRI 13:35
PROVIDERS: PCP Family Medicine; Referring Provider Psychiatry & Neurology Neurology; Visit Provider Psychiatry & Neurology Neurology
DX: R90.82 White matter disease, unspecified (principal)
CPT/HCPCS: 70553; A9579

== ENCOUNTER 2024-08-05 08:53 | Emergency (ER) | payer BC, SELFPAY ==
[2024-08-05 08:54] VITALS: BMI 24.3
[2024-08-05 09:03] VITALS: BP 111/76; PULSE 108; RESP 18; TEMP 36.8; O2SAT 99
--- NOTE | 2024-08-05 09:05 | XR_ITS ---
Examination: CT chest, without intravenous contrast. CT abdomen, without intravenous contrast. CT pelvis, without intravenous contrast. 2-D sagittal and coronal reconstructions. 3-D reconstructions. Date and time of exam:August 05, 2024 at 0920 hrs. Indications: Ground-level fall today with into the chest and abdomen, chest pain abdomen pain CTDI vol (mgy) 5.18 DLP (MGycm)351 Technique: Multiple CT images, 3.0 mm slice thickness, obtained chest, abdomen, pelvis, with the high-resolution 64 slice scanner.. Sagittal and coronal 2-D reconstructions are obtained. 3-D reconstructions Low dose protocols were performed. One or more of the following dose reduction techniques were used; automated exposure control, adjustment of the mA and/or KV according to patient size, use of iterative reconstruction technique. Findings: Thoracic aorta pulmonary arteries appear intact on this noncontrast study Trace pericardial fluid Nodular probable scarring right apex No pneumothorax pulmonary contusion or hemothorax 13 mm pulmonary nodule right middle lobe image 201 The manubrium the body of the sternum intact No thoracic or lumbar or sacral fracture Ribs appear intact No liver splenic or renal laceration 2 mm right renal calculus Aorta normal size No free blood in the abdomen Negative for pneumoperitoneum Abundant stool in the rectosigmoid Urinary bladder intact Bones of the pelvis hips intact Impression: Pulmonary arteries thoracic aorta intact No pneumothorax pulmonary contusion or hemothorax No abdominal parenchymal laceration 2 mm right renal calculus Abdominal aorta intact No free blood in the abdomen Osseous structures appear intact
--- NOTE | 2024-08-05 09:05 | XR_ITS ---
Examination: CT cervical spine without contrast 2-D sagittal reconstructions 2-D coronal reconstructions 3-D reconstructions. Exam date and time:August 05, 2024 0917 hrs. Indications: Ground-level fall today with injury to the neck, neck pain CTDI:vol (mGy) 6.93 DLP: (mGycm) 151 Technique: Multiple 2 mm axial sections of the cervical spine have been obtained. The coronal and sagittal reconstructions have been obtained. 3-D reconstructions have been obtained. Low dose protocols were performed. One or more of the following dose reduction techniques were used; automated exposure control, adjustment of the mA and/or KV according to patient size, use of iterative reconstruction technique. Findings: Axial sections demonstrate intact base of the skull. C1 exhibit satisfactory relationship to the odontoid. No acute cervical vertebral body fracture seen. Alignment posterior spinous processes satisfactory. Impression: No acute cervical fracture.
--- NOTE | 2024-08-05 09:05 | XR_ITS ---
Examination: CT brain head without contrast. 2-D sagittal coronal reconstructions Date and time of exam:August 05, 2024 0917 hrs. Indications: Patient fell today with injury to the head, head pain CTDI: vol (mGy):42.1 DLP: (mGycm):850 0 Technique: Multiple CT axial sections of the brain have been obtained, 5 mm slice thickness. Contrast has not been administered. 2-D sagittal, coronal reconstructions have been obtained Low dose protocols were performed. One or more of the following dose reduction techniques were used; automated exposure control, adjustment of the mA and/or KV according to patient size, use of iterative reconstruction technique. Findings: No significant ventricular enlargement. Intra-axial or extra-axial hemorrhage density is not seen. No mass effect or midline shift Basal cisterns are not remarkable. Fourth ventricle is midline. Cranial vault intact. Impression: Negative for acute hemorrhage, mass effect or midline shift
--- NOTE | 2024-08-05 09:06 | EKG_ITS ---
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
--- NOTE | 2024-08-05 09:06 | PD.EDRME ---
Rapid Medical Screening Exam RME Arrival date/time: 08/05/24 08:53 59-year-old female with history of previous strokes presents to the emergency department today with daughter who reports she found her mother laying on the floor on the side of the bed today Chief Complaint: Fall Vital signs: Vital Signs Temperature 98.3 F 08/05/24 09:03 Pulse Rate 108 H 08/05/24 09:03 Respiratory Rate 18 08/05/24 09:03 Blood Pressure 111/76 08/05/24 09:03 Pulse Oximetry (%) 99 08/05/24 09:03 Oxygen Delivery Method Room Air 08/05/24 09:03
[2024-08-05 10:26] LABS: Basophils % (Auto) 0 % (0-2.5); Eosinophils # (Auto) 0.2 Thou/mm3 (0.0-0.5); Eosinophils % (Auto) 2 % (0-10); Hemoglobin 15.5 g/dL (12.0-16.0); Immature Granulocytes % (Auto) 1 % (0-0); Immature Granulocytes Auto 0.06 Thou/mm3 (0.00-0.00); Lymphocytes # (Auto) 1.4 Thou/mm3 (1.0-4.8); Lymphocytes % (Auto) 15 % (10-50); Mean Corpuscular HGB Conc 34.4 g/dl (31.0-37.0); Mean Corpuscular Volume 96 fL (80-100); Monocytes # (Auto) 0.4 Thou/mm3 (0.0-0.8); Monocytes % (Auto) 4 % (0-12); Neutrophils # (Auto) 7.5 Thou/mm3 (1.8-7.7); Neutrophils % (Auto) 79 % (37-80); Nucleated Red Blood Cell % 0 /100 WBC (0); Platelet Count 313 Thou/mm3 (140-440); RDW Standard Deviation 45.4 fL (36.4-46.3); White Blood Count 9.5 Thou/mm3 (3.6-11.0)
[2024-08-05 10:41] LABS: B-Type Natriuretic Peptide 26 pg/mL (0-100)
[2024-08-05 10:42] LABS: Alanine Aminotransferase 21 U/L (10-49); Albumin, Serum 4.7 gm/dL (3.4-4.8); Anion Gap 10 (7-16); Aspartate Amino Transferase 23 U/L (0-34); BUN/Creatinine Ratio 17 Ratio (12-20); Bilirubin,Total 0.6 mg/dL (0.3-1.2); Blood Urea Nitrogen 10 mg/dL (9-23); Calcium 11.2 mg/dL (8.3-10.6); Calcium (Corrected) 11.2 mg/dL (8.5-10.1); Carbon Dioxide 26.4 mMol/L (20.0-31.0); Chloride 102 mMol/L (98-107); Creatinine (Component) 0.6 mg/dL (0.6-1.3); Estimated Creatinine Clearance 85.3 mL/min (>60); Glucose 105 mg/dL (74-106); Magnesium 1.9 mg/dL (1.6-2.6); Osmolality,Calculated 274 (275-295); Potassium 3.3 mMol/L (3.4-5.1); Sodium 138 mMol/L (136-145); Total Protein 7.2 gm/dL (5.7-8.2); Troponin I < 0.020 ng/mL (0.0-0.045); eGFR > 60 See Note
[2024-08-05 10:43] LABS: Albumin/Globulin Ratio 1.9 (1.2-2.2); Alkaline Phosphatase 124 U/L (46-116); Globulin 2.5 gm/dL (2.3-3.5)
[2024-08-05 10:57] LABS: INR 0.9 (0.9-1.3); Prothrombin Time 10.3 Seconds (9.0-12.2)
[2024-08-05 11:54] VITALS: BP 116/73; PULSE 107; RESP 18; TEMP 36.5; O2SAT 95
--- NOTE | 2024-08-05 12:39 | EDNOTE_ITS ---
ED Fall Injury RME/HPI General Chief Complaint: Fall Stated Complaint: FELL THIS MORNING, ON BLOOD THINNERS Arrival date/time: 08/05/24 08:53 Limitations: physical limitation (wheelchair-bound) RME / HPI RME / HPI Narrative: 08/05/24 08:53 59-year-old female with history of previous strokes presents to the emergency department today with daughter who reports she found her mother laying on the floor on the side of the bed today DR. MCCARTNEY MAIN ED EVALUATION: 59 year old female presents to the Emergency Department accompanied by daughter with complaint of an unwitnessed fall. Per daughter, she found the patient on the floor at 8 AM, has not see her since last night. Daughter thinks maybe the patient rolled off the bed. Unknown trauma. Patient just complains of a frontal headache, but no obvious injury to the site. PMHx: CVA x2, right hemiparesis, wheelchair-bound, hypertension. No known allergies. Family history is significant for WI and diabetes, from mother. Social Hx: Former tobacco smoker. No alcohol or substance use. Related Data Home Medications ?Medication ?Instructions ?Recorded ?Confirmed acetaminophen 500 mg tablet 500 mg PO [id number] PRN Pain 02/01/24 05/04/24 duloxetine 30 mg capsule,delayed 30 mg PO QDAY 4 05/04/24 release meclizine 25 mg tablet 25 mg PO Q12H PRN Dizziness 02/01/24 05/04/24 aspirin 81 mg tablet,delayed 81 mg PO DAILY 02/29/24 0 05/04/24 release bisacodyl 10 mg rectal suppository 10 mg CO Q72H PRN C onstipation 05/04/24 05/04/24 (Dulcolax (bisacodyl)) magnesium hydroxide 400 mg/5 mL 15 ml PO Q72H PRN Cons tipation 05/04/24 05/04/24 oral suspension (Milk of Magnesia) ondansetron HCl 4 mg tablet 4 mg PO Q6H PRN Nausea And Vomiting 05/04/24 05/04/24 sennosides 8.6 mg tablet (senna) 8.6 mg PO QDAY PRN Co nstipation 05/04/24 05/04/24 sodium phosphates 19 gram-7 118 ml CO Q72H 05/04/24 gram/118 mL enema (Fleet Enema) Previous Rx's ?Medication ?Instructions ?Recorded clopidogrel 75 mg tablet (Plavix) 75 mg PO QDAY 60 day s #60 tabs 05/17/24 fluconazole 200 mg tablet 800 mg (4 x 200 mg) PO QDAY #60 05/17/24 tabs Allergies Allergy/AdvReac Type Severity Reaction Status Date / Time No Known Allergies Allergy Verified 05/04/24 18:19 Review of Systems Review of Systems ROS Unobtainable: unobtainable due to medical condition Past Medical History Past Medical History NEUROLOGIC: Positive Neurological Disorders, Cerebrovascular Accident and Migraine CARDIAC: Positive Cardiac Disorders and Hypertension REPRODUCTIVE: Positive Previous Pregnancies MUSCULOSKELETAL: Positive Musculoskeletal Disorders and Arthritis PSYCHO/SOCIAL: Positive Depression and Anxiety Surgical History SURGICAL: Positive Hysterectomy Social History SMOKING STATUS: Former smoker SECOND HAND EXPOSURE: No SUBSTANCE USE: does not use ALCOHOL: Never ED Exam General Limitations: Present physical limitation (wheelchair-bound) Head Head exam: Present atraumatic, normocephalic (no edema, no scalp trauma, no deformities) and normal inspection Eye Eye exam: Present normal appearance, PERRL and EOMI ENT ENT exam: Present normal exam, normal oropharynx and mucous membranes dry Neck Neck exam: Present normal inspection and trachea midline; Absent full ROM (Chronic limited ROM of neck, baseline) Chest Chest inspection: Present normal inspection and symmetric chest wall rise Respiratory Respiratory exam: Present normal lung sounds bilaterally Cardiovascular Cardiovascular exam: Present regular rate, normal rhythm and normal heart sounds Abdominal Exam Abdominal exam: Present soft and normal bowel sounds Extremities Exam Extremities exam: Present normal inspection Back Exam Back exam: Present normal inspection Neurological Exam Neurological exam: Present alert, oriented X3 and other (right hemiparesis from old stroke; difficulties with speech but not complete aphasia) Psychiatric Psychiatric exam: Present normal affect and normal mood Skin Skin exam: Present warm, intact, normal color and other (right hand is cool to touch) Course Quality Measures none Orders Category Date Time Status EKG (ED ONLY) *Do not use* NOW Care 08/05/24 09:[address] cervical spine wo con Stat Exams 08/05/24 09:[address] chest abdomen pelvis wo Stat Exams 08/05/24 09:[address] head/brain wo con Stat Exams 08/05/24 09:05 Completed EKG (ED Only) Stat Exams 08/05/24 09:06 Draft B-Type Natriuretic Peptide Stat Lab 08/05/24 09:49 Completed CBC Stat Lab 08/05/24 09:49 Completed Comprehensive Metabolic Panel Stat Lab 08/05/24 09:49 Completed Magnesium Stat Lab 08/05/24 09:49 Completed Partial Thromboplastin Time Stat Lab 08/05/24 09:49 Completed Prothrombin Time with INR Stat Lab 08/05/24 09:49 Completed Troponin I Stat Lab 08/05/24 09:49 Completed Acetaminophen Tab [Tylenol Tab] Med 08/05/24 13:24 Discontinued 650 mg PO X1 ONE Potassium Chloride [K-Dur] Med 08/05/24 12:41 Discontinued 20 meq PO X1 ONE Vital Signs Vital signs: Vital Signs Temperature 98.3 F 08/05/24 09:03 Pulse Rate 108 H 08/05/24 09:03 Respiratory Rate 18 08/05/24 09:03 Blood Pressure 111/76 08/05/24 09:03 Pulse Oximetry (%) 99 08/05/24 09:03 Oxygen Delivery Method Room Air 08/05/24 09:03 Fall MDM Narrative MDM Narrative:: Dora Bullock am scribing for and in the presence of Dr. Mccartney. Patient data External records reviewed:: [facility] previous records (Reviewed last admission discharge dated 05/16/24, patient admitted for the following: sepsis) Clinical information provided by:: patient and family Social determinants that could affect healthcare access:: other (specify) (Former tobacco smoker.) Patient has the following chronic illnesses:: PMHx: CVA x2, right hemiparesis, wheelchair-bound, hypertension. No known allergies. Family history is significant for WI and diabetes, from mother. How is presenting disease/condition affected by chronic disease/condition?: exacerbated by Evaluation data The following diagnostics were reviewed and interpreted by me:: lab results, radiology exam(s) and EKG tracing(s) Lab and/or radiology exams considered but not ordered:: none Interpretation Summary: EKG#1: EKG at 0908 hours. Interpreted by me: sinus tachycardic, rate 109, nonspecific T wave abnormality, CO interval 136 ms, QRS 75 ms, QT/QTc 267 /361, P-R-T axis 72, 12, and 78 RADIOLOGY Procedure(s): CT head/brain wo con Accession Number(s): [id number] cc: Jordan (ANIL),Srinivasan MA; Chaka Hammond MD~ Examination: CT brain head without contrast. 2-D sagittal coronal reconstructions Date and time of exam:August 05, 2024 0917 hrs. Indications: Patient fell today with injury to the head, head pain CTDI: vol (mGy):42.1 DLP: (mGycm):850 0 Technique: Multiple CT axial sections of the brain have been obtained, 5 mm slice thickness. Contrast has not been administered. 2-D sagittal, coronal reconstructions have been obtained Low dose protocols were performed. One or more of the following dose reduction techniques were used; automated exposure control, adjustment of the mA and/or KV according to patient size, use of iterative reconstruction technique. Findings: No significant ventricular enlargement. Intra-axial or extra-axial hemorrhage density is not seen. No mass effect or midline shift Basal cisterns are not remarkable. Fourth ventricle is midline. Cranial vault intact. Impression: Negative for acute hemorrhage, mass effect or midline shift Dictated By: Chaka Hammond MD Procedure(s): CT chest abdomen pelvis wo Accession Number(s): [id number] cc: Jordan (ANIL),Srinivasan MA; Chaka Hammond MD~ Examination: CT chest, without intravenous contrast. CT abdomen, without intravenous contrast. CT pelvis, without intravenous contrast. 2-D sagittal and coronal reconstructions. 3-D reconstructions. Date and time of exam:August 05, 2024 at 0920 hrs. Indications: Ground-level fall today with into the chest and abdomen, chest pain abdomen pain CTDI vol (mgy) 5.18 DLP (MGycm)351 Technique: Multiple CT images, 3.0 mm slice thickness, obtained chest, abdomen, pelvis, with the high-resolution 64 slice scanner.. Sagittal and coronal 2-D reconstructions are obtained. 3-D reconstructions Low dose protocols were performed. One or more of the following dose reduction techniques were used; automated exposure control, adjustment of the mA and/or KV according to patient size, use of iterative reconstruction technique. Findings: Thoracic aorta pulmonary arteries appear intact on this noncontrast study Trace pericardial fluid Nodular probable scarring right apex No pneumothorax pulmonary contusion or hemothorax 13 mm pulmonary nodule right middle lobe image 201 The manubrium the body of the sternum intact No thoracic or lumbar or sacral fracture Ribs appear intact No liver splenic or renal laceration 2 mm right renal calculus Aorta normal size No free blood in the abdomen Negative for pneumoperitoneum Abundant stool in the rectosigmoid Urinary bladder intact Bones of the pelvis hips intact Impression: Pulmonary arteries thoracic aorta intact No pneumothorax pulmonary contusion or hemothorax No abdominal parenchymal laceration 2 mm right renal calculus Abdominal aorta intact No free blood in the abdomen Osseous structures appear intact Dictated By: Chaka Hammond MD Procedure(s): CT cervical spine wo [facility] Accession Number(s): [id number] cc: Jordan (ANIL),Srinivasan MA; Chaka Hammond MD~ Examination: CT cervical spine without contrast 2-D sagittal reconstructions 2-D coronal reconstructions 3-D reconstructions. Exam date and time:August 05, 2024 0917 hrs. Indications: Ground-level fall today with injury to the neck, neck pain CTDI:vol (mGy) 6.93 DLP: (mGycm) 151 Technique: Multiple 2 mm axial sections of the cervical spine have been obtained. The coronal and sagittal reconstructions have been obtained. 3-D reconstructions have been obtained. Low dose protocols were performed. One or more of the following dose reduction techniques were used; automated exposure control, adjustment of the mA and/or KV according to patient size, use of iterative reconstruction technique. Findings: Axial sections demonstrate intact base of the skull. C1 exhibit satisfactory relationship to the odontoid. No acute cervical vertebral body fracture seen. Alignment posterior spinous processes satisfactory. Impression: No acute cervical fracture. Dictated By: Chaka Hammond MD Medications / Prescriptions Medications or Prescriptions considered but not ordered:: none Medication administrations:: Medication Administration History Discontinued Medications Acetaminophen (Acetaminophen 325 Mg Tablet) 650 mg PO X1 ONE Stop: 08/05/24 13:25 Last Admin: 08/05/24 13:29 Dose: 650 mg Documented By: OSCAR Potassium Chloride (Potassium Chloride 20 Meq Tabcr) 20 meq PO X1 ONE Stop: 08/05/24 12:42 Last Admin: 08/05/24 13:16 Dose: 20 meq Documented By: OSCAR see above Consultations Consultation(s) initiated? (list below): No Diagnosis Fall Differential Diagnosis: concussion with loss of consciousness, concussion without loss of consciousness and other (brain bleed) Most likely diagnosis given after review of the tests above:: Frontal headache Hypokalemia Admission Indicated Admission indicated?: not indicated Admission Request Was there a request for admission?: No Disposition Plan Disposition Plan: Discharge Discharge Attestation Discharge Attestation: The patient and all family members were given an opportunity to ask questions and understood the discharge instructions. Discharge instructions specifically effects, indications for sooner follow up or return to the emergency department, and the expected course of current diagnosis. Patient condition: Stable Discharge Plan Plan Patient Disposition: HOME (Self Care) Prescriptions/Referrals Prescriptions/Med Rec: No Action acetaminophen 500 mg tablet 500 mg PO [id number] PRN (Reason: Pain) meclizine 25 mg tablet 25 mg PO Q12H PRN (Reason: Dizziness) duloxetine 30 mg capsule,delayed release(DR/EC) 30 mg PO QDAY aspirin 81 mg tablet,delayed release (DR/EC) 81 mg PO DAILY Patient Comments: TOME 1 TABLETA POR V A ORAL TODOS LOS D FOR 90 DAYS sennosides [senna] 8.6 mg Tablet 8.6 mg PO QDAY PRN (Reason: Constipation) ondansetron HCl 4 mg Tablet 4 mg PO Q6H PRN (Reason: Nausea And Vomiting) magnesium hydroxide [Milk of Magnesia] 400 mg/5 mL Suspension 15 ml PO Q72H PRN (Reason: Constipation) bisacodyl [Dulcolax (bisacodyl)] 10 mg Suppository 10 mg CO Q72H PRN (Reason: Constipation) Fleet Enema 19-7 gram/118 mL Enema 118 ml CO Q72H clopidogrel [Plavix] 75 mg Tablet 75 mg PO QDAY 60 Days Qty: 60 0RF fluconazole 200 mg tablet 800 mg PO QDAY Qty: 60 0RF Referrals: Ronni Ocasio MD [Primary Care Provider] - In 1 week Problem List Clinical Impression: Frontal headache, Hypokalemia Patient/Caregiver Discharge Instructions Education Materials: Self-Care for Headaches, ED Hypokalemia Additional Instructions: Take Tylenol 500 mg 1-2 tabs every 6 hours as needed for pain PLUS Advil 200 mg gel tablets as needed for pain. Please follow-up with your primary care physician within a week. Return to the Emergency Department as needed. Print Language: Occitan Stand Alone Forms: Sarah Award Info., Patient Portal Info Letter
[2024-08-05] MEDS: POTASSIUM CHLORIDE 20 mEq TABCR PO (13:16)
[2024-08-05] MEDS: ACETAMINOPHEN 325 MG TABLET 650 MG PO (13:29)
[2024-08-05 13:35] VITALS: BP 113/82; PULSE 97; RESP 18; O2SAT 99
== END 2024-08-05 13:35 | disposition home or self-care (01) ==
PROVIDERS: Nurse Practitioner Primary Care; Emergency Provider Family Medicine; PCP Family Medicine
DX: E87.6 Hypokalemia (principal); Z99.3 Dependence on wheelchair; Z86.73 Personal history of transient ischemic attack (TIA), and cerebral infarction without residual deficits; I10 Essential (primary) hypertension
CPT/HCPCS: 36415; 70450; 71250; 72125; 74176; 80053; 83735; 83880; 84484; 85025; 85610; 85730; 93005; 99284; A9270

== ENCOUNTER → 2024-08-07 | Outpatient (CLI) | payer BC, SELFPAY ==
[2024-08-07 17:58] LABS: Protein Total,CSF 71 mg/dL (8-32)
[2024-08-07 17:59] LABS: Glucose,CSF 38 mg/dL (40-70)
[2024-08-07 18:27] LABS: CSF Cell Count Tube # Tube # 4; CSF Color Colorless (Colorless); CSF Red Blood Cell 2 /cmm; CSF White Blood Cell 36 /cmm
[2024-08-07 18:28] LABS: CSF Mononuclear 97 %; CSF Polynuclear WBC 3 %; CSF, Appearance Clear (Clear)
[2024-08-08 11:10] LABS: Misc Send Out* See Sep Rpt
[2024-08-08 12:00] LABS: Misc Send Out* See Sep Rpt
[2024-08-08 17:32] LABS: Coccid Serology, CF CSF (UCD)* See Sep Rpt; Misc Send Out* See Sep Rpt
== END | disposition home or self-care (01) ==
LOC: SLDO 17:09
DX: R20.2 Paresthesia of skin (principal); G37.9 Demyelinating disease of central nervous system, unspecified
CPT/HCPCS: 82945; 84157; 86171; 89051

== ENCOUNTER → 2024-08-17 | Outpatient (CLI) | payer BC, SELFPAY ==
--- NOTE | 2024-08-17 09:00 | XR_ITS ---
Examination: Screening digital mammography, bilateral Computer aided detection 3-D breast Tomosynthesis, bilateral Date and time of exam: August 17, 2024 0900 hours Compared to mammograms dating to November 20, 2018 Indication: Screening Technique: Nonmagnified MLO, CC views of the breasts to been obtained, reconstructed from 3-D Tomosynthesis images. R2 computer aided detection program utilized for evaluation of suspicious masses and/or abnormal calcifications. 3-D Tomosynthesis images obtained. Findings: Scattered areas of fibroglandular density. Benign calcifications. No interval suspicious masses Impression: BI-RADS category II: Benign Findings. Recommend 1 year follow-up mammogram.
== END | disposition home or self-care (01) ==
LOC: CDIM 08:51
PROVIDERS: Referring Provider Family Medicine; Visit Provider Family Medicine
DX: Z12.31 Encounter for screening mammogram for malignant neoplasm of breast (principal); R92.323 Mammographic fibroglandular density, bilateral breasts; R92.1 Mammographic calcification found on diagnostic imaging of breast
CPT/HCPCS: 77063; 77067

== ENCOUNTER → 2024-08-29 | Outpatient (CLI) | payer BC, SELFPAY | END | disposition home or self-care (01) | LOC: SWHD 14:10 | PROVIDERS: PCP Family Medicine; Referring Provider Family Medicine; Visit Provider Student in an Organized Health Care Education/Training Program | DX: L89.322 Pressure ulcer of left buttock, stage 2 (principal); I10 Essential (primary) hypertension; R26.2 Difficulty in walking, not elsewhere classified; R53.1 Weakness; M13.842 Other specified arthritis, left hand; M13.841 Other specified arthritis, right hand; Z99.3 Dependence on wheelchair | CPT/HCPCS: 99213; A9270; G0463 ==

== ENCOUNTER → 2024-09-14 | Outpatient (CLI) | payer BC, SELFPAY | END | disposition home or self-care (01) | LOC: SWHD 09:05 | PROVIDERS: PCP Family Medicine; Referring Provider Family Medicine; Visit Provider Student in an Organized Health Care Education/Training Program | DX: L89.322 Pressure ulcer of left buttock, stage 2 (principal); I10 Essential (primary) hypertension; R26.2 Difficulty in walking, not elsewhere classified; R53.1 Weakness; M13.842 Other specified arthritis, left hand; M13.841 Other specified arthritis, right hand; Z99.3 Dependence on wheelchair | CPT/HCPCS: 99213; A9270; G0463 ==

== ENCOUNTER → 2024-09-21 | Outpatient (CLI) | payer BC, SELFPAY | END | disposition home or self-care (01) | LOC: SWHD 10:16 | PROVIDERS: PCP Family Medicine; Referring Provider Family Medicine; Visit Provider Student in an Organized Health Care Education/Training Program | DX: L89.322 Pressure ulcer of left buttock, stage 2 (principal); I10 Essential (primary) hypertension; Z99.3 Dependence on wheelchair; R53.1 Weakness; M13.842 Other specified arthritis, left hand; M13.841 Other specified arthritis, right hand; Z86.73 Personal history of transient ischemic attack (TIA), and cerebral infarction without residual deficits | CPT/HCPCS: 99212; G0463 ==

== ENCOUNTER → 2024-10-05 | Outpatient (CLI) | payer BC, SELFPAY | END | disposition home or self-care (01) | LOC: SWHD 10:40 | PROVIDERS: PCP Family Medicine; Referring Provider Family Medicine; Visit Provider Surgery | DX: L89.322 Pressure ulcer of left buttock, stage 2 (principal); I10 Essential (primary) hypertension; Z99.3 Dependence on wheelchair; M13.842 Other specified arthritis, left hand; M13.841 Other specified arthritis, right hand; Z86.73 Personal history of transient ischemic attack (TIA), and cerebral infarction without residual deficits | CPT/HCPCS: 99212; G0463 ==